=== PATIENT | female | born 1945 | race Caucasian/White ===

== ENCOUNTER 2023-05-20 15:23 | Outpatient (OUT) | payer MEDICARE, SELFPAY ==
[2023-05-20 16:16] LABS: Anion Gap 9.8; BUN Creatinine Ratio 26.8; Calcium 9.7 mg/dL (8.5-10.1); Carbon Dioxide 33.1 mmol/L (21.0-32.0); Chloride 103 mmol/L (98-107); Estimated GFR (African America >60 (>=60); Estimated GFR (Non-African Ame 56 (>=60); Glucose 138 mg/dL (74-106); Potassium 3.9 mmol/L (3.5-5.1); Sodium 142 mmol/L (136-145); Thyroid Stimulating Hormone 1.517 uIU/mL (0.358-3.740)
[2023-05-20 17:39] LABS: Free T4 0.97 ng/dL (0.76-1.46)
[2023-05-22 04:07] LABS: Triiodothyronine (T3) 106 ng/dL (71-180)
[2023-05-25 15:07] LABS: Thyroid Stim Immunoglobulin <0.10 IU/L (0.00-0.55)
== END 2023-05-20 15:24 | disposition home or self-care (01) ==
LOC: LAB 15:29
PROVIDERS: PCP Internal Medicine; Visit Provider Internal Medicine
DX: I48.19 Other persistent atrial fibrillation (principal); E05.90 Thyrotoxicosis, unspecified without thyrotoxic crisis or storm; N18.32 Chronic kidney disease, stage 3b
CPT/HCPCS: 36415; 80048; 84439; 84443; 84445; 84480

== ENCOUNTER 2023-07-09 13:47 | Outpatient (OUT) | payer MEDICARE, SELFPAY ==
--- NOTE | 2023-07-09 14:22 | CA_ITS ---
Patient: FATUMA MENA Exam Date: 07/09/2023 : 1945 Gender:F Ordering : KARLEE MILLER Admission #: [id number] Family : Order #: [id number] CLICK HERE TO VIEW EXAM ECHOCARDIOGRAM REPORT PROCEDURE: CA ECHO DOPPLER COMPLETE INDICATIONS: Atrial fibrillation, hypertension, diabetes COMPARISON: None. DESCRIPTION: COMPLETE ECHOCARDIOGRAM Real-time transthoracic echocardiography with 2D, M-mode, spectral and color flow Doppler performed. QUALITY: Technical quality was good. LEFT VENTRICLE: Normal chamber size. Proximal septal hypertrophy (sigmoid septum). LV EF: Normal left ventricular ejection fraction, (>55%). DIASTOLIC: Not adequately assessed due to heart rhythm. ATRIAL SEPTUM: Visually appears intact. LEFT ATRIUM: Mild dilatation. RIGHT ATRIUM: Mild dilatation. RIGHT VENTRICLE: Normal chamber size. Normal right ventricular systolic function. TRICUSPID VALVE: Normal mobility and thickness. No stenosis with mild regurgitation. No evidence of pulmonary hypertension. RVSP 31 mmHg MITRAL VALVE: Mildly thickened with normal mobility. No evidence of mitral valve stenosis. Mild mitral annular calcification. Mild to moderate mitral regurgitation. AORTIC VALVE: Normal trileaflet appearance. Thickened aortic valve. Normal leaflet mobility. No evidence of aortic valve stenosis. Trivial aortic regurgitation. AORTIC ROOT: Normal diameter and appearance. PULMONIC VALVE: Normal thickness and mobility. No stenosis. Mild regurgitation. PERICARDIUM: Anterior free space; trivial effusion versus fat pad. IVC: Collapses with inspirations. CONCLUSION: 1. Global left ventricular systolic function is normal; visually estimated ejection fraction is 55 to 60%. 2. Moderate biatrial enlargement. 3. The right ventricle is normal in size and systolic function. 4. Mild tricuspid regurgitation. 5. Mild to moderate mitral regurgitation. 6. Mild pulmonic regurgitation. 7. Anterior free space; trivial effusion versus fat pad. Adult Echocardiography Procedure Report Left Ventricle LVEDD (3.7 - 5.6 cm): 4.67 cm LVESD (2.2 - 4.0 cm): 3.56 cm LVIVS thickness (0.6 - 1.2 cm): 1.74 cm LVPW thickness (0.5 - 1.0 cm): 0.78 cm LVOT Max Gradient: 3.08 mm[Hg], 2.58 mm[Hg] LVOT Area (cm2): 0.84 m/s Peak Velocity (LVOT): 0.88 m/s, 0.80 m/s LVOT Diameter 2.07 cm Left Atrium LA Volume Index (2D A2C): 38.54 ml/m2 Left Atrium Systolic Dimension: 4.90 cm Mitral Valve Mitral Valve E-Wave Peak Velocity: 1.17 m/s Right Ventricle Aorta AO Root Diam: 3.59 cm Ascending Ao Diam: 2.77 cm Aortic Valve AoV Area (Peak César): 3.17 cm2, 2.85 cm2, 3.61 cm2 Peak Velocity(Antegrade Flow): 1.04 m/s, 0.75 m/s Peak Gradient(Antegrade Flow): 4.29 mm[Hg], 2.26 mm[Hg] Tricuspid Valve Peak Velocity (Regurgitant Flow): 2.56 m/s, 2.66 m/s, 2.66 m/s Pulmonic Valve Peak Velocity: 0.73 m/s Peak Gradient: 2.41 mm[Hg] Right Atrium Right Atrium Systolic Pressure: 48.54 ml, 48.54 ml Dictated by: Mirian Beyer M.D. on 07/09/2023 at 15:22 Approved by: Mirian Beyer M.D. on 07/09/2023 at 15:25
== END 2023-07-09 13:48 | disposition home or self-care (01) ==
LOC: CARD 13:47
PROVIDERS: PCP Internal Medicine; Visit Provider Nurse Practitioner
DX: I48.19 Other persistent atrial fibrillation (principal); I08.1 Rheumatic disorders of both mitral and tricuspid valves
CPT/HCPCS: 93306

== ENCOUNTER 2023-09-22 14:56 | Outpatient (REF) | payer MEDICARE, SELFPAY ==
[2023-09-22 15:20] LABS: SARS-CoV-2 Ag POSITIVE (NEGATIVE)
== END 2023-09-22 14:57 | disposition home or self-care (01) ==
LOC: LAB 14:56
PROVIDERS: PCP Internal Medicine; Visit Provider Internal Medicine
DX: Z20.822 Contact with and (suspected) exposure to COVID-19 (principal)
CPT/HCPCS: 87811

== ENCOUNTER 2023-10-05 12:58 | Emergency (ER) | payer MEDICARE, SELFPAY ==
[2023-10-05 13:12] VITALS: BP 125/69; PULSE 98; RESP 18; TEMP 36.8; O2SAT 98; BMI 25.7
--- NOTE | 2023-10-05 13:22 | PC.NURSE ---
large bunion to L foot
--- NOTE | 2023-10-05 13:28 | XR_ITS ---
The [address] [address] Patient Name: FATUMA MENA MRN: [id number] date: 1945 Sex: F Assigned Patient Location: ED.MAIN Current Patient Location: ER Accession/Order Number: [id number] Exam Date: 10/05/2023 13:32 Report Date: 10/05/2023 14:29 At the request of: WENDY ZAPIEN Procedure: XR foot LT min 3V PROCEDURE: XR foot LT min 3V HISTORY: atraumatic pain COMPARISON: None. FINDINGS: BONES:Lateral deviation of the toes and moderate bunion formation. Moderate degenerative changes of the tarsal-metatarsal joints of the second through 5th digits. SOFT TISSUES:Calcium deposition within the Achilles tendon and within the plantar aponeurosis. EFFUSION:None visible. OTHER: Negative. XR/XR foot LT min 3V IMPRESSION: 1. No appreciable acute abnormality. 2. Moderate bunion formation. 3. Moderate degenerative changes of the midfoot. Electronically authenticated by: CHING MAHMOOD Date: 10/05/2023 14:29
[2023-10-05 15:14] VITALS: BP 125/77; PULSE 99; O2SAT 99
--- NOTE | 2023-10-05 15:21 | ED_ITS ---
HPI - Extremity Problem General Chief complaint: Extremity Problem, Nontraumatic Stated complaint: LOWER EXTREMITY INJURY LEFT FOOT Time Seen by Provider: 10/05/23 13:03 Source: patient and family Mode of arrival: Wheelchair Limitations: physical limitation History of Present Illness HPI Narrative: 78-year-old female presents for pain to the arch of her left foot. She had two right hip surgeries within the last few months and has been putting more weight on her left foot. There was no direct injury. It does not hurt at all and neither does her left ankle or left calf for left knee or left hip. the pain is moderate and worse when she steps on it. Related Data Home Medications Medication Instructions Recorded Confirmed amiodarone 200 mg tablet 200 mg PO Q24H 10/05/23 10/05/23 apixaban 5 mg tablet (Eliquis) 5 mg PO Q12H 10/05/23 10/05/23 atorvastatin 40 mg tablet 40 mg PO DAILY 10/05/23 10/05/23 diltiazem HCl 240 mg 240 mg PO Q24H 10/05/23 10/05/23 capsule,extended release 24 hr glimepiride 2 mg tablet 2 mg PO DAILY 10/05/23 10/05/23 lisinopril 20 mg tablet 20 mg PO DAILY 10/05/23 10/05/23 Allergies Allergy/AdvReac Type Severity Reaction Status Date / Time No Known Drug Allergies Allergy Verified 10/05/23 13:14 Review of Systems ROS Narrative A ten point review of systems is negative except as noted above. PFSH PFSH Social History Smoking status: Never smoker Exam Narrative Exam Narrative: Nurses note and vital signs reviewed and patient is not hypoxic. General: The patient appears well and in no apparent distress. Patient is resting comfortably on cart. Skin: Warm, dry, no pallor noted. There is no rash noted. Head: Normocephalic, atraumatic Eye: Normal conjunctiva, no drainage Ears, Nose, Mouth, and Throat: oral mucosa is moist. Nares patent. Cardiovascular: not tachycardic, irregularly irregular Respiratory: Patient is in no distress, no accessory muscle use, lungs are clear to auscultation, no wheezing, rales or rhonchi Back: non-tender GI: soft and nontender Musculoskeletal: the right leg surgical wounds are healing quite well. No calf tenderness on the right and no tenderness in the ankle or foot on the right. The left hip is nontender as is the left knee. No left calf tenderness or swelling or masses. Left ankle is nontender. She has tenderness on palpation arch for left foot but there is no bruising or erythema or rash or open area. Neurological: A&O, normal speech Psychiatric: Cooperative Constitutional Vital Signs, click to edit/add: Last Vital Signs Temp 98.3 F 10/05/23 13:12 Pulse 99 H 10/05/23 15:14 Resp 18 10/05/23 13:12 BP 125/77 10/05/23 15:14 Pulse Ox 99 10/05/23 15:14 O2 Del Method Room Air 10/05/23 13:12 Course Vital Signs Vital signs: Vital Signs Temperature 98.3 F 10/05/23 13:12 Pulse Rate 98 H 10/05/23 13:12 Respiratory Rate 18 10/05/23 13:12 Blood Pressure 125/69 10/05/23 13:12 Pulse Oximetry 98 10/05/23 13:12 Oxygen Delivery Method Room Air 10/05/23 13:12 Temperature 98.3 F 10/05/23 13:12 Pulse Rate 99 H 10/05/23 15:14 Respiratory Rate 18 10/05/23 13:12 Blood Pressure 125/77 10/05/23 15:14 Pulse Oximetry 99 10/05/23 15:14 Oxygen Delivery Method Room Air 10/05/23 13:12 MDM - Extremity (Nontraumatic) MDM Narrative Medical decision making narrative: x-ray shows degenerative changes. She is not hypotensive here nor tachycardic. I've spoken to the patient's PCP as well as the patient and her son and she'll be discharged. Mat wrap applied, application checked by me and found be appropriate, she is neurovascularly intact. She was given a [place] here and she is on that pain medicine at the [facility] as well. Treatment diagnosis and follow-up were discussed thoroughly. Differential Diagnosis Differential diagnosis: Likely other (foot fracture, foot sprain) Imaging Data left foot x-ray: Radiologist's impression: Procedure: XR foot LT min 3V PROCEDURE: XR foot LT min 3V HISTORY: atraumatic pain COMPARISON: None. FINDINGS: BONES:Lateral deviation of the toes and moderate bunion formation. Moderate degenerative changes of the tarsal-metatarsal joints of the second through 5th digits. SOFT TISSUES:Calcium deposition within the Achilles tendon and within the plantar aponeurosis. EFFUSION:None visible. OTHER: Negative. IMPRESSION: 1. No appreciable acute abnormality. 2. Moderate bunion formation. 3. Moderate degenerative changes of the midfoot. Electronically authenticated by: CHING MAHMOOD Date: 10/05/2023 14:29 Discharge Plan Discharge Chief Complaint: Extremity Problem, Nontraumatic Clinical Impression: Strain of foot, left Patient Disposition: Home, Self-Care Time of Disposition Decision: 15:20 Condition: Good Mode of Transportation: Private Vehicle Prescriptions / Home Meds: No Action amiodarone 200 mg tablet 200 mg PO Q24H Eliquis 5 mg tablet 5 mg PO Q12H atorvastatin 40 mg tablet 40 mg PO DAILY diltiazem HCl 240 mg capsule,extended release 24hr 240 mg PO Q24H glimepiride 2 mg tablet 2 mg PO DAILY lisinopril 20 mg tablet 20 mg PO DAILY Instructions: Foot Sprain (ED) Stand Alone Forms: Portal Instructions Referrals: Harsha Arrieta DO [Primary Care Provider] - 1 week
[2023-10-05] MEDS: HYDROCODONE/ACET 5-325 MG TABLET 1 TAB PO (15:30)
== END 2023-10-05 15:45 | disposition home or self-care (01) ==
PROVIDERS: Emergency Provider Emergency Medicine; PCP Internal Medicine
DX: S96.912A Strain of unspecified muscle and tendon at ankle and foot level, left foot, initial encounter (principal); Z98.890 Other specified postprocedural states; Z79.899 Other long term (current) drug therapy
CPT/HCPCS: 73630; 99283

== ENCOUNTER 2024-02-25 10:13 | Outpatient (OUT) | payer MEDICARE, SELFPAY ==
--- NOTE | 2024-02-25 10:33 | MM_ITS ---
Patient Name: FATUMA MENA MR#: [id number] : 1945 Exam Date: 02/25/2024 Ordering Doctor: DR Harsha Arrieta D.O. RADIOLOGY REPORT PROCEDURE: MM SCREENING MAMMO BI COMPARISON: MG MAMM SCREEN 3D LILLIAN CAD, 01/08/2023. MG MAMM SCREEN 3D LILLIAN CAD, 01/07/2022. INDICATIONS: screening Calculator Name NCI Breast Cancer Risk Assessment Tool 5 Year Breast Cancer Risk n/a% Lifetime Breast Cancer Risk n/a% Personal Breast Cancer Yes, 56 Personal Ovarian Cancer No Treatments Left -Lumpectomy, Radiation therapy, Tamoxifen x 5 years Family Cancers Aunt-paternal with breast cancer at age ~60. LOCATION: [facility] BREAST COMPOSITION: Heterogeneously dense,which may obscure small masses. FINDINGS: DIAGNOSTIC CATEGORY 2--BENIGN FINDING: RIGHT BREAST: No significant suspicious finding. Scattered benign-appearing calcifications are present. No significant change has occurred. LEFT BREAST: No significant suspicious finding. Scattered benign-appearing calcifications are present. Stable postsurgical scarring posterior upper-outer quadrant. No significant change has occurred. RECOMMENDATIONS: ROUTINE MAMMOGRAM AND CLINICAL EVALUATION IN 12 MONTHS. PLEASE NOTE: A NORMAL MAMMOGRAM DOES NOT EXCLUDE THE POSSIBILITY OF BREAST CANCER. A CLINICALLY SUSPICIOUS PALPABLE LUMP SHOULD BE BIOPSIED. Dictated by: Donis Dangelo M.D. on 02/25/2024 at 13:51 Approved by: Donis Dangelo M.D. on 02/25/2024 at 13:57
[2024-02-25 10:47] LABS: Basophils Absolute Auto 0.1 10^3/uL (0.0-0.1); Basophils Percent Auto 0.9 % (0.2-2.0); Eosinophils Absolute Auto 0.3 10^3/uL (0.0-0.7); Eosinophils Percent Auto 5.1 % (0.9-7.0); Hemoglobin 12.9 g/dL (12.0-16.0); Immature Granulocytes Abs Auto 0.01 10^3/uL (0.00-0.03); Immature Granulocytes Pct Auto 0.2 % (0.0-0.5); Lymphocytes Absolute Auto 1.1 10^3/uL (1.2-3.8); Mean Corpuscular HGB Conc 32.3 g/dL (29.9-35.2); Mean Corpuscular Hemoglobin 32.1 pg (26.7-34.0); Mean Corpuscular Volume 99.5 fL (81.0-99.0); Mean Platelet Volume 10.3 fL (9.5-13.5); Monocytes Absolute Auto 0.5 10^3/uL (0.3-0.8); Monocytes Percent Auto 8.6 % (1.7-12.0); Neutrophils Absolute Auto 3.8 10^3/uL (1.4-6.5); Neutrophils Percent Auto 66.2 % (43.0-75.0); Platelet Count 232 10^3/uL (150-450); Red Blood Count 4.02 10^6/uL (4.20-5.40); Red Cell Distribution Width 14.8 % (11.0-15.0); White Blood Count 5.7 10^3/uL (4.0-11.0)
[2024-02-25 12:03] LABS: Free T4 0.55 ng/dL (0.76-1.46)
[2024-02-25 12:05] LABS: Microalbumin Urine Random <1.3 mg/dL (<=30.0)
[2024-02-25 12:10] LABS: Estimated Average Glucose 137 mg/dL; Glycohemoglobin A1C 6.4 % (4.5-6.2)
[2024-02-25 13:24] LABS: Anion Gap 15.4; Carbon Dioxide 26.5 mmol/L (21.0-32.0); Chloride 103 mmol/L (98-107); Potassium 3.9 mmol/L (3.5-5.1); Sodium 141 mmol/L (136-145)
[2024-02-25 13:25] LABS: Alanine Aminotransferase 45 U/L (14-59); Albumin Globulin Ratio 1.1; Albumin Level 3.9 g/dL (3.4-5.0); Alkaline Phosphatase 80 U/L (46-116); Aspartate Amino Transferase 34 U/L (15-37); Bilirubin Total 0.6 mg/dL (0.2-1.0); Calcium 9.7 mg/dL (8.5-10.1); Estimated GFR (African America >60 (>=60); Estimated GFR (Non-African Ame 53 (>=60); Globulin 3.7 g/dL; Glucose 136 mg/dL (74-106); Total Protein 7.6 g/dL (6.4-8.2)
[2024-02-25 13:26] LABS: Chol HDL Ratio 2.5; Cholesterol 157 mg/dL (<=200); HDL Cholesterol 62 mg/dL (40-60); Thyroid Stimulating Hormone 13.739 uIU/mL (0.358-3.740); Triglycerides 98 mg/dL (<=150); VLDL CHOLESTEROL 19.6 mg/dL
[2024-02-26 08:11] LABS: Triiodothyronine (T3) 117 ng/dL (71-180)
== END 2024-02-25 10:14 | disposition home or self-care (01) ==
LOC: MAMMO 10:13
PROVIDERS: PCP Internal Medicine; Visit Provider Internal Medicine
DX: Z12.31 Encounter for screening mammogram for malignant neoplasm of breast (principal); E11.65 Type 2 diabetes mellitus with hyperglycemia; E11.42 Type 2 diabetes mellitus with diabetic polyneuropathy; N18.32 Chronic kidney disease, stage 3b; I48.0 Paroxysmal atrial fibrillation; E78.2 Mixed hyperlipidemia; Z79.899 Other long term (current) drug therapy; Z85.3 Personal history of malignant neoplasm of breast; Z80.3 Family history of malignant neoplasm of breast; I12.9 Hypertensive chronic kidney disease with stage 1 through stage 4 chronic kidney disease, or unspecified chronic kidney disease
CPT/HCPCS: 36415; 77067; 80053; 80061; 82043; 83036; 84439; 84443; 84480; 85025

== ENCOUNTER 2024-03-22 09:20 | Outpatient (RCR) | payer MEDICARE, SELFPAY | END 2024-04-21 11:34 | disposition home or self-care (01) | LOC: MM 09:20 | PROVIDERS: PCP Internal Medicine; Visit Provider Internal Medicine | DX: Z51.81 Encounter for therapeutic drug level monitoring (principal); Z79.01 Long term (current) use of anticoagulants; I48.0 Paroxysmal atrial fibrillation ==

== ENCOUNTER 2024-04-24 03:28 | Outpatient (RCR) | payer MEDICARE, SELFPAY | END 2024-05-19 11:03 | disposition home or self-care (01) | LOC: MM 03:28 | PROVIDERS: PCP Internal Medicine; Visit Provider Internal Medicine | DX: Z51.81 Encounter for therapeutic drug level monitoring (principal); Z79.01 Long term (current) use of anticoagulants; I48.0 Paroxysmal atrial fibrillation ==

== ENCOUNTER 2024-05-22 00:31 | Outpatient (RCR) | payer MEDICARE, SELFPAY | END 2024-06-21 10:11 | disposition home or self-care (01) | LOC: MM 00:31 | PROVIDERS: PCP Internal Medicine; Visit Provider Internal Medicine | DX: Z51.81 Encounter for therapeutic drug level monitoring (principal); Z79.01 Long term (current) use of anticoagulants; I48.0 Paroxysmal atrial fibrillation ==

== ENCOUNTER 2024-06-22 00:24 | Outpatient (RCR) | payer MEDICARE, SELFPAY | END 2024-07-21 10:01 | disposition home or self-care (01) | LOC: MM 00:24 | PROVIDERS: PCP Internal Medicine; Visit Provider Internal Medicine | DX: Z51.81 Encounter for therapeutic drug level monitoring (principal); Z79.01 Long term (current) use of anticoagulants; I48.0 Paroxysmal atrial fibrillation | CPT/HCPCS: 85610; G0463 ==

== ENCOUNTER 2024-07-24 01:42 | Outpatient (RCR) | payer MEDICARE, SELFPAY | END 2024-08-21 23:41 | disposition home or self-care (01) | LOC: MM 01:42 | PROVIDERS: PCP Internal Medicine; Visit Provider Internal Medicine | DX: Z51.81 Encounter for therapeutic drug level monitoring (principal); Z79.01 Long term (current) use of anticoagulants; I48.0 Paroxysmal atrial fibrillation | CPT/HCPCS: 85610; G0463 ==

== ENCOUNTER 2024-07-27 14:04 | Outpatient (OUT) | payer MEDICARE, SELFPAY ==
[2024-07-27 15:27] LABS: Estimated Average Glucose 171 mg/dL; Glycohemoglobin A1C 7.6 % (4.5-6.2)
[2024-07-27 15:37] LABS: Thyroid Stimulating Hormone 2.479 uIU/mL (0.358-3.740)
== END 2024-07-27 14:05 | disposition home or self-care (01) ==
PROVIDERS: PCP Internal Medicine; Visit Provider Internal Medicine
DX: E11.65 Type 2 diabetes mellitus with hyperglycemia (principal); E03.9 Hypothyroidism, unspecified; Z51.81 Encounter for therapeutic drug level monitoring; Z79.01 Long term (current) use of anticoagulants; I48.0 Paroxysmal atrial fibrillation
CPT/HCPCS: 36415; 83036; 84443; 85610; G0463

== ENCOUNTER 2024-08-22 02:33 | Outpatient (RCR) | payer MEDICARE, SELFPAY | END 2024-09-21 23:13 | disposition home or self-care (01) | LOC: MM 02:33 | PROVIDERS: PCP Internal Medicine; Visit Provider Internal Medicine | DX: Z51.81 Encounter for therapeutic drug level monitoring (principal); Z79.01 Long term (current) use of anticoagulants; I48.0 Paroxysmal atrial fibrillation | CPT/HCPCS: 85610; G0463 ==

== ENCOUNTER 2024-09-22 13:15 | Outpatient (RCR) | payer MEDICARE, SELFPAY | END 2024-10-21 23:59 | disposition home or self-care (01) | LOC: MM 13:15 | PROVIDERS: PCP Internal Medicine; Visit Provider Internal Medicine | DX: Z51.81 Encounter for therapeutic drug level monitoring (principal); Z79.01 Long term (current) use of anticoagulants; I48.0 Paroxysmal atrial fibrillation | CPT/HCPCS: 85610; G0463 ==

== ENCOUNTER 2024-10-23 05:57 | Outpatient (RCR) | payer MEDICARE, SELFPAY | END 2024-11-21 09:13 | disposition home or self-care (01) | LOC: MM 05:57 | PROVIDERS: PCP Internal Medicine; Visit Provider Internal Medicine | DX: Z51.81 Encounter for therapeutic drug level monitoring (principal); Z79.01 Long term (current) use of anticoagulants; I48.0 Paroxysmal atrial fibrillation ==

== ENCOUNTER 2024-11-23 01:48 | Outpatient (RCR) | payer MEDICARE, SELFPAY | END 2024-12-22 14:32 | disposition home or self-care (01) | LOC: MM 01:48 | PROVIDERS: PCP Internal Medicine; Visit Provider Internal Medicine | DX: Z51.81 Encounter for therapeutic drug level monitoring (principal); Z79.01 Long term (current) use of anticoagulants; I48.0 Paroxysmal atrial fibrillation | CPT/HCPCS: 85610; G0463 ==

== ENCOUNTER 2024-12-25 00:38 | Outpatient (RCR) | payer MEDICARE, SELFPAY | END 2025-01-19 10:22 | disposition home or self-care (01) | LOC: MM 00:38 | PROVIDERS: PCP Internal Medicine; Visit Provider Internal Medicine | DX: Z51.81 Encounter for therapeutic drug level monitoring (principal); Z79.01 Long term (current) use of anticoagulants; I48.0 Paroxysmal atrial fibrillation | CPT/HCPCS: 85610; G0463 ==

== ENCOUNTER 2025-01-20 12:44 | Outpatient (RCR) | payer MEDICARE, SELFPAY | END 2025-02-16 13:49 | disposition home or self-care (01) | LOC: MM 12:44 | PROVIDERS: PCP Internal Medicine; Visit Provider Internal Medicine | DX: Z51.81 Encounter for therapeutic drug level monitoring (principal); Z79.01 Long term (current) use of anticoagulants; I48.20 Chronic atrial fibrillation, unspecified ==

== ENCOUNTER 2025-01-28 15:19 | Emergency (ER) | payer MEDICARE, SELFPAY ==
--- OUTSIDE RECORDS SUMMARY | 2025-01-28 15:25 | XMS_ITS | CCD ---
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 Role Phone Harsha Arrieta Unavailable KAMRAN, DR VALDEZ Consulting Unavailable BALL, DR VALDEZ Primary Care Unavailable BALL, DR VALDEZ Attending Unavailable BALL, DR VALDEZ Admitting Unavailable ZIEBER, DR CHING Hill Consulting Unavailable NEFCY, SAMARA Consulting Unavailable RAMIREZ, KEERTHI Consulting Unavailable BALL, DR VALDEZ Consulting Unavailable BALL, DR VALDEZ Primary Care Unavailable BALL, DR VALDEZ Attending Unavailable BALL, DR VALDEZ Admitting Unavailable ZIEBER, DR CHING Hill Consulting Unavailable BALL, DR VALDEZ Consulting Unavailable BALL, DR VALDEZ Primary Care Unavailable BALL, DR VALDEZ Attending Unavailable BALL, DR VALDEZ Admitting Unavailable BALL, DR VALDEZ Consulting Unavailable BALL, DR VALDEZ Primary Care Unavailable BALL, DR VALDEZ Attending Unavailable BALL, DR VALDEZ Admitting Unavailable BALL, DR VALDEZ Consulting Unavailable BALL, DR VALDEZ Primary Care Unavailable BALL, DR VALDEZ Attending Unavailable BALL, DR VALDEZ Admitting Unavailable BALL, DR VALDEZ Consulting Unavailable BALL, DR VALDEZ Primary Care Unavailable BALL, DR VALDEZ Attending Unavailable BALL, DR VALDEZ Admitting Unavailable KARASIK ., DR BARAHONA Consulting Unavailabl e REQUEST, DR MONCADA LISTED Primary Care Unavaila ble KARASIK ., DR BARAHONA Attending Unavailabl e KARASIK ., DR BARAHONA Admitting Unavailabl e KARASIK ., DR BARAHONA Consulting Unavailabl e BALL, DR VALDEZ Primary Care Unavailable KARASIK ., DR BARAHONA Attending Unavailabl e KARASIK ., DR BARAHONA Admitting Unavailabl e KARASIK ., DR BARAHONA Consulting Unavailabl e BALL, DR VALDEZ Primary Care Unavailable KARASIK ., DR BARAHONA Attending Unavailabl e KARASIK ., DR BARAHONA Admitting Unavailabl e BALL, DR VALDEZ Consulting Unavailable BALL, DR VALDEZ Primary Care Unavailable BALL, DR VALDEZ Attending Unavailable BALL, DR VALDEZ Admitting Unavailable BALL, DR VALDEZ Consulting Unavailable BALL, DR VALDEZ Primary Care Unavailable BALL, DR VALDEZ Attending Unavailable BALL, DR VALDEZ Admitting Unavailable BALL, DR VALDEZ Consulting Unavailable BALL, DR VALDEZ Primary Care Unavailable BALL, DR VALDEZ Attending Unavailable BALL, DR VALDEZ Admitting Unavailable BROWN, JENELLE Consulting Unavailable BALL, DR VALDEZ Consulting Unavailable BALL, DR VALDEZ Primary Care Unavailable BALL, DR VALDEZ Attending Unavailable BALL, DR VALDEZ Admitting Unavailable BALL, DR VALDEZ Consulting Unavailable BALL, DR VALDEZ Primary Care Unavailable KARASIJohana ., DR BARAHONA Attending Unavailabl e KARASIJohana ., DR BARAHONA Admitting Unavailabl e ZIEBEMORY, DR CHING Hill Consulting Unavailable Seamus SANDHU, Isidro Dahl Attending Unavaila ble Ball DO, [facility] Primary Care Unavail able Seamus SANDHU, Isidro Dahl Attending Unavaila ble Denike DO, Frank Del Rosario Attending Unavaila ble Ball DO, [facility] Primary Care Unavail able Seamus SANDHU, Isidro Dahl Attending Unavaila ble Ball DO, [facility] Unavail able Seamus SANDHU, Isidro Dahl Attending Unavaila ble Ball DO, [facility] Primary [facility] Unavail able DAKOTA MAK Admitting Unavailable RAY, CESAR Referring Unavailable BALL, HARSHA Primary Care Unavailable FATMATA (LATOSHA), JUSTIN Berry Attending Santos UNGER, TUTU Hill Attending Unavailable ALLYSSA, SANTIAGO Attending Unavailable WILL, MATT Attending Unavailable ALLYSSA, SANTIAGO Attending Unavailable ALLYSSA, SANTIAGO Admitting Unavailable ALLYSSA, SANTIAGO Attending Unavailable ALLYSSA, SANTIAGO Referring Unavailable SANTIAGO TRINIDAD Referring Unavailable KARLEE PEARSON Attending Unavailable Harsha Arrieta MD Primary Care Provider Kamran HI, Harsha Primary Care Provider RICHARD DAY Referring Unavailable KAMRAN, HARSHA Primary Care Unavailable CHING COHEN Referring Unavailable KAMRAN, HARSHA Primary Care Unavailable KAMRAN, HARSHA Primary Care Unavailable CHING COHEN Referring Unavailable KAMRAN, HARSHA Primary Care Unavailable RICHARD DAY Referring Unavailable KAMRAN, HARSHA Primary Care Unavailable Allergies Allergy Classification Reported Allergen(s) Allergy Type Date of Onset Reaction(s) Facility (20 sources) Linagliptin Drug Allergy 02-14-20 24 Unknown, Unknown Reaction [facility] (20 sources) metFORMIN Drug Allergy 11-22-19 20 Unknown, Unknown Reaction [facility] (20 sources) Sertraline; Translations: [SERTRALINE] Drug Allergy 01-16-20 13 Unknown, Unknown Reaction [facility] (20 sources) Sulfacetamide Drug Allergy 02-14-20 24 Unknown, Unknown Reaction [facility] (2 sources) Linagliptin Drug Allergy Unknown [facility] (1 source) metFORMIN Drug Allergy [facility] (1 source) Sertraline Drug Allergy 05-01-20 13 [facility] (1 source) Sulfonamides (Antibiotic) Drug allergy (disorder) [facility] (2 sources) Sertraline Drug Allergy 11-22-19 SERTRALINE HCL Comment:Freete xt Needs Updated. [facility] Other (2 sources) Allergies Reconciled Propensity to adverse reactions Unknown [facility] Other (20 sources) Sulf-10 Drug allergy Comment:sulfa drugs [facility] Other (2 sources) patient allergy list reviewed by nurse or physicia Propensity to adverse reactions 11-22-19 Comment:Done [facility] Other (7 sources) Sulfonamides (Antibiotic) Allergy to substance 02-14-20 Comment:sulfa drugs [facility] Medications Current Medications Medication Drug Class(es) Dates Sig (Normalized) Sig (Original) acetaminophen 500 mg oral tablet (9 sources) Start: 02-14-2024 take 2 tablets by mouth every eight hours as needed acetaminophen (Tylenol) 500 MG tablet Take 1,000 mg by mouth every 8 (eight) hours if needed 02/14/2024 Active Start: 02-14-2024 Acetaminophen (Acetaminophen Pain Relief) 500 mg tablet Active 1000 MG PO Three times daily as needed February 13, 2024 11:00pm ALPRAZolam 0.25 mg oral tablet (20 sources) Benzodiazepine Start: 06-19-2024 End: 12-25-2024 take 1 tablet by mouth twice daily as needed for anxiety Alprazolam 0.25 mg tablet Active 0.25 MG PO Twice daily as needed for anxiety 60 December 25, 2024 12:21pm Start: 02-14-2024 End: 06-19-2024 take 0.5 tablet by mouth twice daily in the morning, then take 1 tablet by mouth once daily at bedtime Alprazolam 0.25 mg tablet Discontinued 0.25 MG PO Twice daily February 14, 2024 12:58pm June 19, 2024 12:16pm 1/2 tablet in am and 1 tablet qhs Start: 09-30-2023 End: 02-14-2024 take 1 tablet by mouth twice daily Alprazolam 0.25 mg tablet Discontinued 0.25 MG PO Twice daily February 02, 2024 11:00pm February 14, 2024 1:03pm Start: 04-05-2023 take 1 tablet by roman th every eight hours ALPRAZolam 0.25 MG 1 tablet Orally THREE TIMES A DAY March, Active take 1 tablet by roman th every eight hours ALPRAZolam 0.25 MG 1 tablet Orally THREE TIMES A DAY Active amiodarone hydrochloride 200 mg oral tablet (20 sources) Antiarrhythmic Start: 02-02-2024 take 1 tablet by mouth once daily Amiodarone 200 mg tablet Active 200 MG PO Daily February 01, 2024 11:00pm aspirin 81 mg delayed release oral tablet (3 sources) Platelet Aggregation Inhibitor, Nonsteroidal Anti-inflammatory Drug take 1 tablet by mouth every twenty-four hours Aspirin 81 MG 1 tablet Orally Once a day Active atorvastatin 40 mg oral tablet (20 sources) HMG-CoA Reductase Inhibitor Start: 02-07-2024 take 1 tablet by mouth once daily in the evening Atorvastatin 40 mg tablet Active 0 .ROUTE .COMPLEX 90 February 07, 2024 12:28pm TAKE 1 TABLET BY MOUTH ONCE DAILY IN THE EVENING Start: 02-03-2024 End: 02-07-2024 take 1 tablet by mouth once daily in the evening Atorvastatin 40 mg tablet Discontinued 40 MG PO Every evening February 02, 2024 11:00pm February 07, 2024 12:28pm Calcium Carb-Cholecalciferol (CALTRATE 600+D3 PO) (2 sources) take 1 tablet by mouth at bedtime Calcium Carb-Cholecalciferol (CALTRATE 600+D3 PO) Take 1 tablet by mouth in the morning and at bedtime Active Calcium Carbonate+Vitamin D (4 sources) Calcium Carbonat e+Vitamin D Active Caltrate 600+D Plus Minerals 600-800 MG-UNIT (20 sources) take 600-800 tablets by mouth twice daily Caltrate 600+D Plus Minerals 600-800 MG-UNIT 1 tablet Orally Twice a day Active carvedilol 25 mg oral tablet (19 sources) alpha-Adrener gic Jhon, beta-Adrenerg ic Jhon Start: 2022 take 1 tablet by mouth every twelve hours Carvedilol 25 MG 1 tablet with food Orally Twice a day Jan, Active take 1 tablet by roman th every twelve hours Carvedilol 12.5 MG 1 tablet with food Orally Twice a day Active celecoxib 100 mg oral capsule (1 source) Nonsteroidal Anti-inflammatory Drug Start: 01-26-2023 take 1 capsule by mouth twice daily at mealtime Celecoxib 100 MG 1 capsule with food Orally Twice daily for 15 days Jan, Active cephalexin 500 mg oral capsule (14 sources) Cephalosporin Antibacterial Start: 06-25-2023 take 1 capsule by mouth every eight hours ciprofloxacin 250 mg oral tablet (15 sources) Quinolone Antimicrobial Start: 06-21-2023 take 1 tablet by mouth every twelve hours Ciprofloxacin HCl 250 MG 1 tablet Orally every 12 hrs for 5 days May, Active 12 hr dextromethorphan hydrobromide 30 mg / guaiFENesin 600 mg extended release oral tablet (2 sources) Uncompetitive Y-siyvto-Q-aspartate Receptor Antagonist, Sigma-1 Agonist take 1 tablet by mouth every twelve hours dextromethorphan- guaiFENesin (Mucinex DM) 30-600 MG 12 hr tablet Take 1 tablet by mouth every 12 (twelve) hours Do not crush, chew, or split. Active 24 hr dilTIAZem hydrochloride 240 mg extended release oral tablet (20 sources) Calcium Channel Jhon Start: 02-03-2024 take 1 tablet by mouth once daily Diltiazem Hcl 240 mg tablet extended release 24 hr Active 240 MG PO Daily February 02, 2024 11:00pm Start: 07-16-2023 take 1 capsule by mo uth every twenty-four hours take 1 capsule by mouth once brando ly dilTIAZem (CARDIZEM CD) 240 MG extended release capsule Take 1 capsule by mouth daily Active take 1 capsule by mouth twice da mady diltiazem (CARDIZEM SR) 120 MG SR capsule Take 1 capsule by mouth 2 times daily Active take 1 tablet by roman th every twenty-four hours dilTIAZem HCl ER 240 MG 1 tablet Orally Once a day Active take 1 tablet by mouth once gwendolyn y dilTIAZem HCl ER 240 MG 1 tablet Orally Once a day Active docusate sodium 100 mg oral capsule (13 sources) Start: 02-14-2024 take 1 capsule by mouth once daily as needed Docusate Sodium (Colace) 100 mg capsule Active 100 MG PO Daily as needed February 13, 2024 11:00pm 0.5 ml dulaglutide 3 mg/ml auto-injector (20 sources) GLP-1 Receptor Agonist Start: 12-06-2024 End: 12-06-2024 Dulaglutide (Trulicity) 1.5 mg/0.5 mL pen injector Active 1.5 MG SUBCUT every week 2 December 06, 2024 12:07pm Start: 10-01-2024 End: 12-06-2024 Dulaglutide (Trulicity) 1.5 mg/0.5 mL pen injector Discontinued 0 .ROUTE .COMPLEX October 01, 2024 8:37pm December 06, 2024 11:38am INJECT 1 SYRINGE SUBCUTANEOUSLY ONCE A WEEK Start: 04-13-2024 End: 10-01-2024 Dulaglutide 1.5 mg/0.5 mL pe n injector Discontinued 1.5 MG SUBCUT every week 2 April 13, 2024 10:18am October 01, 2024 8:39pm Start: 01-31-2024 End: 04-13-2024 Dulaglutide (Trulicity) 0.75 mg/0.5 mL pen injector Discontinued 0.75 MG SUBCUT As Directed January 31, 2024 11:29am April 13, 2024 10:22am Start: 11-12-2023 Trulicity 0.75 MG/0.5ML as directed Subcutaneous Oct, Active inject 0.5 mL by sub cutaneous injection every week Trulicity 0.75 MG/0.5ML INJECT 0.5ML SYRINGE SUBCUTANEOUSLY ONCE A WEEK Not-Taking Flash Glucose Sensor (Freestyle Chelsea 2 Sensor) kit (2 sources) Start: 10-02-2024 Flash Glucose Sensor (Freestyle Chelsea 2 Sensor) kit Active 0 .ROUTE .COMPLEX 2 October 02, 2024 5:50pm USE TO CHECK BLOOD SUGAR TRANCUTANEOUS FOUR TIMES DAILY Start: 10-02-2024 End: 10-02-2024 Flash Glucose Sensor (Freest yle Chelsea 2 Sensor) kit Discontinued 0 .Route 2 October 024 12:00am October 02, 2024 5:50pm to test blood sugar 4 times daily FreeStyle Chelsea 2 Sensor - (4 sources) Start: 12-07-2023 FreeStyle Libr e 2 Sensor - Use to test home BS trancutaneous qid for 30 days Nov, Active FreeStyle Chelsea 2 Sensor - as directed trascutaneous testing 4x daily for 30 days Active hydroCHLOROthiazide 25 mg oral tablet (20 sources) Thiazide Diuretic Start: 01-31-2024 take 1 tablet by mouth once daily Hydrochlorothiazide 25 mg tablet Active 0 .ROUTE .COMPLEX January 31, 2024 11:41am Take 1 tablet by mouth once daily Start: 01-31-2024 End: 01-31-2024 take 1 tablet by mouth once daily Hydrochlorothiazide 25 mg tablet Discontinued 25 MG PO Daily January 30, 2024 11:00pm January 31, 2024 11:41am Ibadronate (2 sources) Ibandronate Sodi um (BONIVA IV) Infuse intravenously. Takes this 4 times a year Active 3 ml ibandronic acid 1 mg/ml prefilled syringe (6 sources) Bisphosphonate inject 3 mL intravenously every three months ibandronate (Boniva) 3 MG/3ML solution inject 3 milliliter by intravenous route every 3 months over Intravenous Active Boniva Active levothyroxine sodium 0.025 mg oral tablet (20 sources) l-Thyroxine Start: 01-03-2025 take 1 tablet by mouth once daily Levothyroxine 25 mcg tablet Active 25 MCG PO Daily January 03, 2025 2:48pm Start: 09-01-2024 End: 01-03-2025 take 1 tablet by mouth once daily Levothyroxine 25 mcg tablet Discontinued 0 .ROUTE .COMPLEX October 30, 2024 4:56pm January 03, 2025 2:49pm Take 1 tablet by mouth once daily Start: 03-01-2024 End: 09-01-2024 take 1 tablet by mouth once daily Levothyroxine 25 mcg tablet Discontinued 25 MCG PO Daily August 29, 2024 11:32am September 01, 2024 1:58pm Start: 02-25-2024 End: 03-01-2024 take 1 capsule by mouth once daily Levothyroxine 25 mcg capsule Discontinued 25 MCG PO Daily March 01, 2024 11:18am March 01, 2024 12:19pm lisinopril 20 mg oral tablet (20 sources) Angiotensin Converting Enzyme Inhibitor Start: 04-18-2024 take 1 tablet by mouth once daily Lisinopril 20 mg tablet Active 0 .ROUTE .COMPLEX April 18, 2024 1:27pm Take 1 tablet by mouth once daily Start: 04-18-2024 take 1 tablet by roman th once daily Lisinopril Active 0 .ROUTE .COMPLEX April 18, 2024 2:27pm Take 1 tablet by mouth once daily Start: 02-03-2024 End: 04-18-2024 take 1 tablet by mouth once daily Lisinopril 20 mg tablet Discontinued 20 MG PO Daily February 02, 2024 11:00pm April 18, 2024 1:27pm melatonin 5 mg oral capsule (9 sources) Start: 02-14-2024 take 1 mg by mouth once daily at bedtime as needed Melatonin 5 mg capsule Active MG PO Daily at bedtime as needed February 13, 2024 11:00pm Start: 02-14-2024 take 1 mg by mouth o nce daily at bedtime Melatonin Active MG PO Daily at bedtime February 14, 2024 12:00am take 1 tablet by mouth at bedtim e melatonin 5 MG tablet Take 5 mg by mouth at bedtime Active miconazole nitrate 20 mg/ml topical cream (9 sources) Azole Antifungal Start: 02-14-2024 Miconazole Ni trate (Antifungal (Miconazole)) 2 % cream Active 1 APPLIC TOPICAL Daily as needed February 13, 2024 11:00pm miconazole (Sander tin) 200 MG vaginal suppository Insert 200 mg into the vagina at bedtime As needed Active omeprazole 10 mg delayed release oral capsule (20 sources) Proton Pump Inhibitor Start: 02-03-2024 take 1 capsule by mouth once daily Omeprazole 10 mg capsule,delayed release(DR/EC) Active 10 MG PO Daily February 02, 2024 11:00pm take 1 tablet by mouth once gwendolyn y PriLOSEC OTC 20 MG 1 tablet 30 minutes before morning meal Orally Once a day Not-Taking 24 hr oxybutynin chloride 10 mg extended release oral tablet (20 sources) Cholinergic Muscarinic Antagonist take 1 tablet by mouth once daily oxybutynin (DITROPAN XL) 10 MG extended release tablet Take 1 tablet by mouth daily Active pravastatin sodium 40 mg oral tablet (2 sources) HMG-CoA Reductase Inhibitor take 1 tablet by mouth once daily pravastatin (PRAVACHOL) 40 MG tablet Take 40 mg by mouth daily. Active turmeric extract 500 mg oral capsule (8 sources) take 1 capsule by mouth once daily turmeric 500 MG CAPS Take 1 capsule by mouth daily Active take 400 mg by mouth once daily Turmeric (QC TUMERIC COMPLEX PO) Take 400 mg by mouth Daily Active Turmeric 400 MG as directed Orally Active warfarin sodium 2 mg oral tablet (2 sources) Vitamin K Antagonist Start: 07-18-2024 take 1 tablet by mouth once daily Warfarin 2 mg tablet Active 2 MG PO Daily July 17, 2024 11:00pm Completed/Discontinued Medications Medication Drug Class(es) Dates Sig (Normalized) Sig (Original) Accu-Chek SmartView - (20 sources) Accu-Chek SmartV iew - as directed In Vitro Not-Taking Accu-Chek SmartV iew - as directed In Vitro Active apixaban 5 mg oral tablet (20 sources) Factor Xa Inhibitor Start: 02-01-2023 End: 07-18-2024 take 1 tablet by mouth twice daily Apixaban 5 mg tablet Discontinued 5 MG PO Twice daily February 02, 2024 11:00pm July 18, 2024 12:59pm azithromycin 250 mg oral tablet (10 sources) Macrolide Antimicrobial Start: 08-30-2023 Azithromycin 250 MG as directed Orally daily for 5 days Aug, Not-Taking calcium carbonate 1500 mg / cholecalciferol 200 unt oral tablet (9 sources) Vitamin D Start: 02-03-2024 End: 02-14-2024 take 1 tablet by mouth once daily Calcium Carbonate-Vitamin D3 600 mg-5 mcg (200 unit) tablet Discontinued 1 TAB PO Daily February 02, 2024 11:00pm February 14, 2024 12:59pm Contour Test - (20 sources) Contour Test - Use to test home BS In Vitro daily for 50 days Not-Taking Contour Test - U se to test home BS In Vitro daily for 50 days Active Contour Test - a s directed In Vitro Active Ferrex 150 Forte 150-1-25 MG-MG-MCG (3 sources) take 1 capsule by mouth once daily Ferrex 150 Forte 150-1-25 MG-MG-MCG 1 capsule Orally Once a day Not-Taking folic acid 1 mg / polysaccharide iron complex 150 mg / vitamin b12 0.025 mg oral capsule (20 sources) Vitamin B12 take 1 capsule by mouth every twenty-four hours Ferrex 150 Forte 150-1-25 MG-MG-MCG 1 capsule Orally Once a day Not-Taking glimepiride 1 mg oral tablet (20 sources) Sulfonylurea Start: 02-14-2024 End: 04-13-2024 take 1 tablet by mouth once daily Glimepiride 1 mg tablet Discontinued 1 MG PO Daily February 14, 2024 1:00pm April 13, 2024 10:23am Start: 02-03-2024 End: 02-14-2024 take 2 tablets by mouth once daily Glimepiride 1 mg tablet Discontinued 2 MG PO Daily February 02, 2024 11:00pm February 14, 2024 1:03pm Start: 02-03-2024 End: 02-14-2024 take 2 mg by mouth once daily Glimepiride Discontinued 2 MG PO Daily February 03, 2024 12:00am February 14, 2024 2:03pm Start: 12-17-2022 take 1 tablet by roman th every twenty-four hours Glimepiride 2 MG 1 tablet with breakfast or the first main meal of the day Orally Once a day Nov, Active Start: 12-17-2022 take 0.5 tablet by m outh once daily Glimepiride 2 MG 1/2 tablet Orally Once a day Nov, Active take 1 tablet by roman th every twenty-four hours Glimepiride 1 MG 1 tablet with breakfast or the first main meal of the day Orally Once a day for 30 days Active take 0.5 tablet by m outh once daily Glimepiride 4 MG 1/2 Tablet Orally Once a day Active 3 ml insulin glargine 100 unt/ml pen injector (8 sources) Insulin Analog Start: 02-03-2024 End: 02-14-2024 inject 10 [IU] by subcutaneous injection once daily in the evening Insulin Glargine 100 unit/mL (3 mL) insulin pen Discontinued 10 UNIT SUBCUT Every evening February 02, 2024 11:00pm February 14, 2024 1:00pm Start: 11-12-2023 inject 10 [IU] by blum bcutaneous injection once in the morning Lantus SoloStar 100 UNIT/ML 10 units Subcutaneous q am Oct, Active Insulin Lispro (6 sources) Insulin Analog Start: 02-03-2024 End: 02-14-2024 inject 4-14 [IU] by subcutaneous injection at dinner Insulin Lispro Discontinued 1 sliding scale dose SUBCUT Use as Directed February 03, 2024 12:00am February 14, 2024 2:00pm inject 4-14 units under skin with breakfast, with lunch, and with evening meal Insulin Lispro 100 unit/mL insulin pen (1 source) Start: 02-03-2024 End: 02-14-2024 inject 4-14 [IU] by subcutaneous injection at dinner Insulin Lispro 100 unit/mL insulin pen Discontinued 1 sliding scale dose SUBCUT Use as Directed February 02, 2024 11:00pm February 14, 2024 1:00pm inject 4-14 units under skin with breakfast, with lunch, and with evening meal nitrofurantoin, macrocrystals 25 mg / nitrofurantoin, monohydrate 75 mg oral capsule (9 sources) Nitrofuran Antibacterial Start: 05-30-2024 End: 07-18-2024 take 1 capsule by mouth twice daily at mealtime Nitrofurantoin Monohyd/M-Cryst (Macrobid) 100 mg capsule Discontinued 100 MG PO Twice daily 10 5 July 09, 2024 11:00pm July 18, 2024 12:59pm must administer with a meal/food triamcinolone acetonide 40 mg/ml injectable suspension (20 sources) Corticosteroid Start: 01-26-2023 Kenalog-40 Jan, 40 mg Tumersaid - (20 sources) Tumersaid - as directed Orally Not-Taking Tumersaid - as d irected Orally Active Tylenol Arthritis Pain (20 sources) Tylenol Arthriti s Pain Not-Taking Tylenol Arthriti s Pain Active urea 400 mg/ml topical cream (2 sources) Start: 05-16-2024 End: 06-15-2024 urea (Carmol) 40 % cream Indications: Callus Apply 1 application topically in the morning and 1 application before bedtime. 85 g 2 05/16/2024 06/15/2024 {10 (nirmatrelvir 150 MG Ora l Tablet) / 10 (ritonavir 100 MG Oral Tablet) } Pack [Paxlovid 150 MG /100 MG Dose Pack] (9 sources) Start: 09-22-2023 Paxlovid (150/ 100) 10 x 150 MG & 10 x 100MG as directed Orally bid for 5 days Sep, Not-Taking Start: 09-22-2023 Paxlovid (150/ 100) 10 x 150 MG & 10 x 100MG as directed Orally bid for 5 days Sep, Active Problems Active Problems Problem Classification Problem Date Documented Da te Episodic/Chronic Acquired foot deformities (4 sources) Hallux valgus (acquired), right foot; Translations: [Hallux valgus (acquired)] 01-14-2025 Chronic Acquired foot deformities (2 sources) Tailor's bunion of left foot; Translations: [Bunionette of left foot] 01-14-2025 Episodic Acute bronchitis (3 sources) Acute bronchitis; Translations: [Acute bronchitis, unspecified] Onset: 11-27-2015 Episodic Acute posthemorrhagic anemia (3 sources) Acute posthemorrhagic anemia Episodic Anxiety disorders (20 sources) Generalized anxiety disorder; Translations: [Generalized anxiety disorder] Chronic Cancer of breast (2 sources) Malignant neoplasm of female breast; Translations: [Malignant neoplasm of breast (female), unspecified site] Chronic Cancer of breast (20 sources) Personal history of primary malignant neoplasm of breast; Translations: [Personal history of malignant neoplasm of breast] Onset: 11-22-1959 Episodic Cardiac dysrhythmias (20 sources) Persistent atrial fibrillation; Translations: [Other persistent atrial fibrillation] Onset: 09-25-2023 Resolved: 04-29-2022 Chronic Comment on above: - s/p DCCV 09/2023 w / Amiodarone therapy Cardiac dysrhythmias (20 sources) Palpitations; Translations: [Palpitations] Onset: 10-05-2022 Episodic Chronic kidney disease (20 sources) Chronic kidney disease stage 3B ; Translations: [Stage 3b chronic kidney disease] Onset: 05-16-2024 02-03-2024 Chronic Complications of surgical procedures or medical care (3 sources) Other postprocedural complications and disorders of genitourinary system Episodic Congestive heart failure; nonhypertensive (4 sources) Chronic diastolic (congestive) heart failure; Translations: [Chronic heart failure co-occurrent with normal ejection fraction] Onset: 07-04-2023 Chronic Coronary atherosclerosis and other heart disease (4 sources) Atherosclerotic heart disease of [place] coronary artery with other forms of angina pectoris; Translations: [Coronary arteriosclerosis] Onset: 09-25-2023 Chronic Diabetes mellitus with complications (20 sources) Hyperglycemia due to type 2 diabetes mellitus; Translations: [Type 2 diabetes mellitus with hyperglycemia] Onset: 02-08-2015 Chronic Diabetes mellitus without complication (2 sources) Diabetes mellitus; Translations: [Type 2 diabetes mellitus without complications] Onset: 09-25-2023 09-25-2023 Chronic Disorders of lipid metabolism (20 sources) Mixed hyperlipidemia; Translations: [Mixed hyperlipidemia] Onset: 09-04-2015 Chronic Esophageal disorders (20 sources) Gastro-esophageal reflux disease with esophagitis; Translations: [Gastroesophageal reflux disease with esophagitis without hemorrhage] Onset: 05-16-2024 02-12-2024 Chronic Esophageal disorders (2 sources) Acquired diverticulum of esophagus; Translations: [Diverticulum of esophagus, acquired] Episodic Essential hypertension (20 sources) Essential hypertension; Translations: [Essential (primary) hypertension] Onset: 02-13-2023 Chronic Fracture of neck of femur (hip) (1 source) Fracture of unspecified part of neck of right femur, subsequent encounter for closed fracture with routine healing Episodic Genitourinary symptoms and ill-defined conditions (20 sources) Urge incontinence of urine; Translations: [Urge incontinence] Onset: 08-30-2012 02-03-2024 Chronic Genitourinary symptoms and ill-defined conditions (20 sources) Dysuria; Translations: [Dysuria] Onset: 08-17-2017 Resolved: 04-29-2022 Episodic Heart valve disorders (7 sources) Nonrheumatic aortic (valve) insufficiency; Translations: [Nonrheumatic mitral (valve) insufficiency] Onset: 05-14-2022 Chronic Immunizations and screening for infectious disease (2 sources) Vaccination given; Translations: [Encounter for immunization] Episodic Infective arthritis and osteomyelitis (except that caused by tuberculosis or sexually transmitted disease) (20 sources) Inflammation of pubic symphysis; Translations: [Osteomyelitis, unspecified] Chronic Joint disorders and dislocations; trauma-related (2 sources) Derangement of knee; Translations: [Unspecified internal derangement of right knee] Onset: 11-11-2015 Chronic Malaise and fatigue (20 sources) Chronic fatigue syndrome; Translations: [Chronic fatigue, unspecified] Onset: 09-30-2022 Chronic Nutritional deficiencies (4 sources) Vitamin D deficiency; Translations: [Vitamin D deficiency, unspecified] Onset: 09-04-2015 09-27-2023 Chronic Osteoarthritis (20 sources) Osteoarthritis of knee; Translations: [Unilateral primary osteoarthritis, right knee] Onset: 10-05-2022 Chronic Osteoporosis (20 sources) Primary osteoporosis; Translations: [Age-related osteoporosis without current pathological fracture] Onset: 12-11-2022 Chronic Other acquired deformities (2 sources) Acquired unequal leg length; Translations: [Unequal limb length (acquired), unspecified site] 01-14-2025 Episodic Other acquired deformities (1 source) Leg length inequality; Translations: [Unequal limb length (acquired), unspecified site] 01-22-2025 Episodic Other acquired deformities (3 sources) Unequal limb length (acquired), unspecified site; Translations: [Unequal limb length (acquired), unspecified site] Onset: 01-22-2025 Episodic Other aftercare (20 sources) H/O: high risk medication; Translations: [Other terminal operations manager (current) drug therapy] Episodic Other aftercare (4 sources) Other terminal operations manager (current) drug therapy; Translations: [OTH SECURITY SERVICES SPECIALIST CURRENT DRUG THERAPY] Onset: 02-13-2023 Episodic Other aftercare (2 sources) Long-term current use of drug therapy; Translations: [Other care home (current) drug therapy] Episodic Other aftercare (2 sources) Long-term current use of insulin; Translations: [[facility] (current) use of insulin] Episodic Other aftercare (4 sources) Drug therapy finding; Translations: [Other terminal operations manager (current) drug therapy] 02-14-2024 Episodic Other bone disease and musculoskeletal deformities (20 sources) Other specified disorders of bone density and structure, left thigh; Translations: [Osteopenia of left hip] Episodic Other bone disease and musculoskeletal deformities (1 source) Other specified disorders of bone density and structure, right thigh Episodic Other bone disease and musculoskeletal deformities (4 sources) Osteopenia; Translations: [Other specified disorders of bone density and structure, left thigh] 02-03-2024 Episodic Other congenital anomalies (2 sources) Talipes planus; 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] 01-14-2025 Chronic Other connective tissue disease (4 sources) Hip joint prosthesis present; Translations: [Presence of right artificial hip joint] Onset: 09-14-2023 05-16-2024 Chronic Other connective tissue disease (2 sources) Pain in left foot; Translations: [Pain in left foot] 05-16-2024 Episodic Other connective tissue disease (2 sources) Pain in right foot; Translations: [Pain in right foot] 05-16-2024 Episodic Other gastrointestinal disorders (20 sources) Dysphagia; Translations: [Dysphagia, unspecified] Episodic Other hereditary and degenerative nervous system conditions (20 sources) Essential tremor; Translations: [Essential tremor] Onset: 05-16-2024 02-03-2024 Chronic Other hereditary and degenerative nervous system conditions (1 source) Essential tremor Chronic Other inflammatory condition of skin (2 sources) Rosacea; Translations: [Rosacea, unspecified] Onset: 02-28-2015 Chronic Other injuries and conditions due to external causes (2 sources) History of fall; Translations: [History of falling] Episodic Other lower respiratory disease (20 sources) Dyspnea on exertion; Translations: [Other forms of dyspnea] Episodic Other lower respiratory disease (2 sources) Dyspnea; Translations: [Other forms of dyspnea] Episodic Other nervous system disorders (1 source) Other acute postprocedural pain; Translations: [Other acute postprocedural pain] Onset: 09-25-2023 Episodic Other non-traumatic joint disorders (2 sources) Lower limb joint arthritis; Translations: [Osteoarthrosis, unspecified whether generalized or localized, lower leg] Onset: 11-12-2015 Chronic Other non-traumatic joint disorders (20 sources) Arthralgia of the lower leg; Translations: [Pain in right knee] Onset: 11-11-2015 Episodic Other non-traumatic joint disorders (1 source) Pain in right knee Episodic Other non-traumatic joint disorders (5 sources) Pain in right hip; Translations: [PAIN IN RIGHT HIP] Onset: 01-26-2023 Episodic Other nutritional; endocrine; and metabolic disorders (20 sources) Obesity; Translations: [Obesity, unspecified] Chronic Other nutritional; endocrine; and metabolic disorders (4 sources) Obese class I; Translations: [Body mass index 33.0-33.9, adult] Onset: 05-08-2016 Chronic Other nutritional; endocrine; and metabolic disorders (6 sources) Body mass index 30+ - obesity; Translations: [Body mass index 30.0-30.9, adult] Onset: 12-23-2015 Resolved: 12-27-2019 Chronic Other nutritional; endocrine; and metabolic disorders (2 sources) Simple obesity ; Translations: [Other obesity due to excess calories] Onset: 12-23-2015 Chronic Other nutritional; endocrine; and metabolic disorders (1 source) Obesity, unspecified; Translations: [Obesity] Chronic Other nutritional; endocrine; and metabolic disorders (1 source) Overweight Episodic Other screening for suspected conditions (not mental disorders or infectious disease) (15 sources) Other specified abnormal findings of blood chemistry; Translations: [Encounter for screening mammogram for malignant neoplasm of breast] Onset: 09-04-2015 Episodic Other skin disorders (2 sources) Callosity; Translations: [Corns and callosities] 05-16-2024 Episodic Other skin disorders (2 sources) Musculoskeletal finding; Translations: [Atrophic disorder of skin, unspecified] 01-14-2025 Episodic Prolapse of female genital organs (20 sources) Uterine prolapse; Translations: [Uterovaginal prolapse, unspecified] Onset: 08-30-2012 02-03-2024 Chronic Residual codes; unclassified (20 sources) Obstructive sleep apnea syndrome; Translations: [Obstructive sleep apnea (adult) (pediatric)] 02-03-2024 Chronic Residual codes; unclassified (7 sources) Obstructive sleep apnea (adult) (pediatric); Translations: [Obstructive sleep apnea (adult)(pediatric)] Chronic Residual codes; unclassified (20 sources) Postmenopausal state; Translations: [Asymptomatic menopausal state] 02-03-2024 Episodic Residual codes; unclassified (1 source) Family history of malignant neoplasm of breast; Translations: [FAMILY HX MALIG NEOPLASM OF BREAST] Onset: 01-14-2023 Episodic Spondylosis; intervertebral disc disorders; other back problems (2 sources) Spondylosis without myelopathy or radiculopathy, lumbar region; Translations: [Other intervertebral disc degeneration, thoracic region] Onset: 05-07-2022 Chronic Spondylosis; intervertebral disc disorders; other back problems (20 sources) Backache; Translations: [Dorsalgia, unspecified] Onset: 05-07-2022 Episodic Thyroid disorders (20 sources) Thyrotoxicosis; Translations: [Thyrotoxicosis, unspecified without thyrotoxic crisis or storm] Onset: 02-13-2023 Chronic Unclassified (3 sources) LOW BACK PAIN, UNSPECIFIED; Translations: [LOW BACK PAIN, UNSPECIFIED] Onset: 05-07-2022 Unclassified (2 sources) Long-term current use of drug therapy; Translations: [Long-term (current) use of other medications] Onset: 12-07-2017 Urinary tract infections (5 sources) Urinary tract infectious disease; Translations: [Urinary tract infection, site not specified] Onset: 07-14-2013 Episodic Viral infection (5 sources) Disease caused by 2019-nCoV; Translations: [COVID-19] 07-18-2024 Episodic Past or Other Problems Problem Classification Problem Date Documented Da te Episodic/Chronic Bacterial infection; unspecified site (4 sources) Bacterial infectious disease; Translations: [Bacterial infection, unspecified, in conditions classified elsewhere and of unspecified site] Onset: 01-12-2017 Resolved: 06-09-2021 Episodic Chronic kidney disease (8 sources) Chronic kidney disease Deficiency and other anemia (2 sources) Anemia; Translations: [Anemia, unspecified] Onset: 09-27-2015 Episodic Esophageal disorders (20 sources) Esophageal disorders; Translations: [Gastroesophageal reflux disease with esophagitis without hemorrhage] Fracture of lower limb (7 sources) Closed fracture of shaft of femur; Translations: [Unspecified fracture of shaft of unspecified femur, initial encounter for closed fracture] Onset: 09-24-2023 05-16-2024 Episodic Fracture of upper limb (2 sources) Closed fracture of upper end of humerus; Translations: [Closed fracture of unspecified part of upper end of humerus] Onset: 02-15-2014 Episodic Malaise and fatigue (7 sources) Other malaise; Translations: [Other fatigue] Onset: 07-17-2014 Episodic Neoplasms of unspecified nature or uncertain behavior (2 sources) Neoplasm of uncertain behavior of soft tissues; Translations: [Neoplasms of unspecified nature of bone, soft tissue, and skin] Onset: 02-28-2015 Episodic Nonspecific chest pain (2 sources) Chest pain; Translations: [Chest pain, unspecified] Resolved: 04-29-2022 Episodic Other acquired deformities (1 source) Other specified deforming dorsopathies, thoracic region; Translations: [OTH DEFORMING DORSOPATHIES THOR RGN] Onset: 05-07-2022 Episodic Other aftercare (2 sources) Surgical follow-up; Translations: [Surgery follow-up examination] Onset: 10-19-2012 Episodic Other bone disease and musculoskeletal deformities (2 sources) Disorder of bone; Translations: [Other specified disorders of bone density and structure, other site] Resolved: 03-20-2020 Episodic Other bone disease and musculoskeletal deformities (3 sources) Other specified disorders of bone, thigh; Translations: [Other specified disorders of bone, thigh] Onset: 08-15-2024 Episodic Other connective tissue disease (2 sources) Tear of right rotator cuff; Translations: [Unspecified rotator cuff tear or rupture of right shoulder, not specified as traumatic] Onset: 01-12-2017 Episodic Other gastrointestinal disorders (2 sources) Diarrhea; Translations: [Diarrhea] Onset: 07-14-2013 Episodic Other lower respiratory disease (5 sources) Dyspnea, unspecified; Translations: [DYSPNEA UNSPECIFIED] Onset: 05-07-2022 Episodic Other skin disorders (2 sources) Inflamed seborrheic keratosis; Translations: [Inflamed seborrheic keratosis] Resolved: 04-29-2022 Episodic Other skin disorders (2 sources) Atrophoderma; Translations: [Unspecified hypertrophic and atrophic condition of skin] Onset: 08-17-2017 Episodic Other upper respiratory infections (2 sources) Acute maxillary sinusitis; Translations: [Acute maxillary sinusitis, unspecified] Onset: 01-12-2017 Episodic Residual codes; unclassified (2 sources) Requires influenza virus vaccination; Translations: [Need for prophylactic vaccination and inoculation, Influenza] Onset: 08-17-2017 Episodic Unclassified (20 sources) Low back pain, non-specific; Translations: [Low back pain, non-specific] Unclassified (9 sources) Other persistent atrial fibrillation; Translations: [OTHR PERSISTENT ATRIAL FIBRILLATION] Onset: 02-13-2023 Unclassified (1 source) LOW BACK PAIN, UNSPECIFIED; Translations: [LOW BACK PAIN, UNSPECIFIED] Onset: 05-04-2022 Unclassified (1 source) Suspected COVID-19 virus infection Z20.822 Viral infection (1 source) COVID-19 Results Test Name Value Interpretation Reference Range Facility XR Femur and Tibia Views for leg lengthon 01-23-2025 Total limb length discrepancy = 0.3 cm Focal area of cortical thickening in the proximal left femur on single AP view. Recommend dedicated left femur radiographs. [facility] EXAMINATION: BONE LENGTH STUDIES, 01/22/2025 10:52 am COMPARISON: None. HISTORY: ORDERING SYSTEM PROVIDED HISTORY: Leg length discrepancy FINDINGS: Right femur length = 48.8 cm. Right tibia length = 36.0 cm. Right total limb length = 84.8 cm. Left femur length = 48.3 cm. Left tibia length = 36.8 cm. Left total limb length = 85.1 cm. Incidental note made of small area of focal cortical thickening proximal left femoral diaphysis. [facility] José Luis Gill, DO - 01/23/2025 EXAMINATION: BONE LENGTH STUDIES, 01/22/2025 10:52 am COMPARISON: None. HISTORY: ORDERING SYSTEM PROVIDED HISTORY: Leg length discrepancy FINDINGS: Right femur length = 48.8 cm. Right tibia length = 36.0 cm. Right total limb length = 84.8 cm. Left femur length = 48.3 cm. Left tibia length = 36.8 cm. Left total limb length = 85.1 cm. Incidental note made of small area of focal cortical thickening proximal left femoral diaphysis. IMPRESSION: Total limb length discrepancy = 0.3 cm Focal area of cortical thickening in the proximal left femur on single AP view. Recommend dedicated left femur radiographs. [facility] XR Femur and Tibia Views for leg lengthOrdered By: José Luis Gill on 01-23-2025 [facility] Work Phone: XR LEG LENGTH EVALUATIONon 0 01-23-2025 XR LEG LENGTH EVALUATION EXAMINATION: BONE LENGTH STUDIES, 01/22/2025 10:52 am COMPARISON: None. HISTORY: ORDERING SYSTEM PROVIDED HISTORY: Leg length discrepancy FINDINGS: Right femur length = 48.8 cm. Right tibia length = 36.0 cm. Right total limb length = 84.8 cm. Left femur length = 48.3 cm. Left tibia length = 36.8 cm. Left total limb length = 85.1 cm. Incidental note made of small area of focal cortical thickening proximal left femoral diaphysis. IMPRESSION: Total limb length discrepancy = 0.3 cm Focal area of cortical thickening in the proximal left femur on single AP view. Recommend dedicated left femur radiographs. Interpreted by: José Luis Gill DO Signed by: José Luis Gill DO 01/23/25 Final result Normal [facility] XR Femur and Tibia Views for leg lengthon 01-22-2025 Radiology Study observation (narrative) [facility] XR Foot - left 3 [facility] Result: 05-16-24 Bilateral foot weight-bearing three views AP, medial oblique, lateral were obtained. Right foot: Patient has severe hallux abductovalgus right foot with significant lateral deviation of the hallux on the 1st metatarsal proximally 45-50 percent. Toes 3, 4 half splaying, 4th and 5th toe are mildly contracted as are other toes of the 4th and 5th are the worse. Severe arthritis North metatarsal bases 2-4 with significant joint space narrowing and sclerosis. Lateral view shows severe pes planovalgus right foot large plantar fluffy calcaneal spur, midfoot arthritis noted lesser toes are contracted. LEFT FOOT: Patient has moderate to severe hallux abductovalgus left foot irregular 1st metatarsal head medially due to possible previous surgery/ silver bunionectomy, lateral deviation of the hallux of the 1st metatarsal proximally 40 percent. Lesser toes are abducted due to hallux deviation laterally tailor's bunion left adductovarus left 5th toe. Joint space narrowing of the metatarsal bases is not as severe as right though is mostly noted of the 2nd and 3rd metatarsal bases. Lateral view: Severe pes planovalgus left foot very large plantar calcaneal spur, calcific Achilles tendon noted for approximately 1.8 cm small calcifications noted of the plantar fascia distal to the plantar fascial origin. [facility] Radiology Study observation (narrative) [facility] XR Foot - right 3 [facility] Result: 05-16-24 Bilateral foot weight-bearing three views AP, medial oblique, lateral were obtained. Right foot: Patient has severe hallux abductovalgus right foot with significant lateral deviation of the hallux on the 1st metatarsal proximally 45-50 percent. Toes 3, 4 half splaying, 4th and 5th toe are mildly contracted as are other toes of the 4th and 5th are the worse. Severe arthritis North metatarsal bases 2-4 with significant joint space narrowing and sclerosis. Lateral view shows severe pes planovalgus right foot large plantar fluffy calcaneal spur, midfoot arthritis noted lesser toes are contracted. LEFT FOOT: Patient has moderate to severe hallux abductovalgus left foot irregular 1st metatarsal head medially due to possible previous surgery/ silver bunionectomy, lateral deviation of the hallux of the 1st metatarsal proximally 40 percent. Lesser toes are abducted due to hallux deviation laterally tailor's bunion left adductovarus left 5th toe. Joint space narrowing of the metatarsal bases is not as severe as right though is mostly noted of the 2nd and 3rd metatarsal bases. Lateral view: Severe pes planovalgus left foot very large plantar calcaneal spur, calcific Achilles tendon noted for approximately 1.8 cm small calcifications noted of the plantar fascia distal to the plantar fascial origin. [facility] Radiology Study observation (narrative) [facility] [employer] XR FEMUR RIGHT (MIN 2 VIEWS) on 08-15-2024 XR FEMUR RIGHT (MIN 2 VIEWS) EXAMINATION: XRAY VIEWS OF THE RIGHT FEMUR 08/15/2024 2:53 pm COMPARISON: September 24, 2023 HISTORY: ORDERING SYSTEM PROVIDED HISTORY: Closed fracture of shaft of right femur, initial encounter ([facility]) FINDINGS: Interval hardware s/p ORIF mid right femur. Stable total right hip arthroplasty. No acute interval change. Generalized osteopenia. There is atherosclerosis through the soft tissues. IMPRESSION: Status post ORIF right femur fracture. No acute findings. Interpreted by: José Luis Gill DO Signed by: José Luis Gill DO 08/15/24 Final result Normal [facility] Office Visiton 08-11-2024 Follow-up visit [id number] Fatuma Mena 1945 F Date Provider Department Center 08/11/2024 [facility] Family History Problem Relation Age of Onset Heart attack Father Stroke Father Family Status - Relation Status Age at Father Level of Service:[id number] ID OFFICE/OUTPATIENT ESTABLISHED LOW MDM 20 MIN Normal [facility] Glucose mean value [Mass/vol ume] in Blood Estimated from glycated hemoglobinon 07-27-2024 Average glucose Estimated from glycated hemoglobin (Bld) [Mass/Vol] 171 mg/dL [facility] - Chemistry and C hemistry - challengeon 07-27-2024 TSH Qn 2.479 m[IU]/L 0.358-3.740 [facility] - Hematology and Cell countson 07-27-2024 HbA1c (Bld) [Mass fraction] 7.6 % High 4.5-6.2 [facility] Comment on above: ADA RECOMMENDED LIMI T 4.0 - 6.0ADA THERAPEUTIC TARGET < 7.0ACTION SUGGESTED> 7.0 Influenza virus B Ag [Presen ce] in Upper respiratory specimen by Rapid immunoassayon 07-18-2024 FLUBV Ag IA.rapid Ql (Nph) Negative [facility] No Panel Informationon 07-18 Influenza Type A (Rapid) Negative [facility] POC SARS CoV-[address] [facility] - Chemistry and C hemistry - challengeon 07-10-2024 Bilirubin Ql (U) Negative [facility] Glucose (U) [Mass/Vol] Negative [facility] Ketones Ql (U) 1.005 [facility] pH (U) 5.0 [pH] [facility] Specific gravity (U) [Rel density] 1.010 [facility] Urobilinogen (U) [Mass/Vol] 0.2 mg/dL [facility] Laboratory - Specimen inform ationon 07-10-2024 Appearance (U) cloudy [facility] Color (U) yellow [facility] Laboratory - Urinalysison Leukocyte esterase Test strip Ql (U) moderate [facility] Nitrite Ql (U) Negative [facility] Protein Ql (U) 4 [facility] No Panel Informationon 07-10 Urine Occult Blood 7.5 [facility] - Chemistry and C hemistry - challengeon 05-30-2024 Bilirubin Ql (U) Negative [facility] Glucose (U) [Mass/Vol] Negative [facility] Ketones Ql (U) Negative [facility] pH (U) 5.0 [pH] [facility] Specific gravity (U) [Rel density] 1.010 [facility] Urobilinogen (U) [Mass/Vol] 0.2 mg/dL [facility] Laboratory - Specimen inform ationon 05-30-2024 Appearance (U) cloudy [facility] Color (U) yellow [facility] Laboratory - Urinalysison Leukocyte esterase Test strip Ql (U) ++ [facility] Nitrite Ql (U) Negative [facility] Protein Ql (U) Positive [facility] No Panel Informationon 05-30 Urine Occult Blood +++ [facility] Basophils Auto (Bld) [#/Vol] on 02-25-2024 Basophils (Bld) [#/Vol] 0.1 10 3/uL 0.0-0.1 [facility] Basophils/100 WBC Auto (Bld) on 02-25-2024 Basophils/100 WBC (Bld) 0.9 % 0.2-2.0 [facility] Cholesterol in LDL Calc [Mas s/Vol]on 02-25-2024 Cholesterol in LDL [Mass/Vol] 76.0 mg/dL [facility] Comment on above: <100 mg/dl [id number] 0-129 mg/dl NEAR OR ABOVE [id number] mg/dl BORDERLINE [id number] mg/dl HIGH>190 mg/dl VERY HIGH Cholesterol in VLDL Calc [Ma ss/Vol]on 02-25-2024 Cholesterol in VLDL [Mass/Vol] 19.6 mg/dL [facility] Eosinophils/100 WBC Auto (Bl d)on 02-25-2024 Eosinophils/100 WBC (Bld) 5.1 % 0.9-7.0 [facility] Erythrocyte distribution wid th Auto (RBC) [Ratio]on 02-25-2024 Erythrocyte distribution width (RBC) [Ratio] 14.8 % 11.0-15.0 [facility] Estimated glomerular filtrat ion rate (GFR) non- Americanon 02-25-2024 GFR/1.73 sq M.predicted among non-blacks MDRD (S/P/Bld) [Vol rate/Area] 53 mL/min/{1.73_m2} >=60 [facility] Globulin Calc (S) [Mass/Vol] on 02-25-2024 Globulin (S) [Mass/Vol] 3.7 g/dL [facility] Glucose mean value [Mass/vol ume] in Blood Estimated from glycated hemoglobinon 02-25-2024 Average glucose Estimated from glycated hemoglobin (Bld) [Mass/Vol] 137 mg/dL [facility] Hematocrit Auto (Bld) [Volum e fraction]on 02-25-2024 Hematocrit (Bld) [Volume fraction] 40.0 % 36.0-48.0 [facility] Hemoglobin [Mass/volume] in Bloodon 02-25-2024 Hemoglobin (Bld) [Mass/Vol] 12.9 g/dL 12.0-16.0 [facility] Laboratory - Chemistry and C hemistry - challengeon 02-25-2024 Albumin [Mass/Vol] 3.9 g/dL 3.4-5.0 [facility] ALP [Catalytic activity/Vol] 80 U/L 46-116 [facility] ALT [Catalytic activity/Vol] 45 U/L 14-59 [facility] AST [Catalytic activity/Vol] 34 U/L 15-37 [facility] Bilirubin [Mass/Vol] 0.6 mg/dL 0.2-1.0 [facility] Calcium [Mass/Vol] 9.7 mg/dL 8.5-10.1 [facility] Chloride [Moles/Vol] 103 mmol/L 98-107 [facility] Cholesterol [Mass/Vol] 157 mg/dL <=[address] [facility] Cholesterol in HDL [Mass/Vol] 62 mg/dL 40-60 [facility] Comment on above: > or =60 mg/dl - LOW CARDIOVASCULAR RISK<40 mg/dl - HIGH CARDIOVASCULAR RISK CO2 [Moles/Vol] 26.5 mmol/L 21.0-32.0 [facility] Creatinine [Mass/Vol] 1.00 mg/dL 0.55-1.02 [facility] Free T4 [Mass/Vol] 0.55 ng/dL 0.76-1.46 [facility] GFR/1.73 sq M.predicted MDRD (S/P/Bld) [Vol rate/Area] mL/min/{1.73_m2} >=60 [facility] Glucose [Mass/Vol] 136 mg/dL 74-106 [facility] Potassium [Moles/Vol] 3.9 mmol/L 3.5-5.1 [facility] Protein [Mass/Vol] 7.6 g/dL 6.4-8.2 [facility] Sodium [Moles/Vol] 141 mmol/L 136-145 [facility] Triglyceride [Mass/Vol] 98 mg/dL <=150 [facility] TSH Qn 13.739 m[IU]/L 0.358-3.740 [facility] Urea nitrogen [Mass/Vol] 23.0 mg/dL 7.0-18.0 [facility] Urea nitrogen/Creatinine [Mass ratio] 23.0 mg/mg [facility] Laboratory - Hematology and Cell countson 02-25-2024 HbA1c (Bld) [Mass fraction] 6.4 % 4.5-6.2 [facility] Comment on above: ADA RECOMMENDED LIMI T 4.0 - 6.0ADA THERAPEUTIC TARGET < 7.0ACTION SUGGESTED> 7.0 Immature granulocytes/100 WBC (Bld) 0.2 % 0.0-0.5 [facility] Leukocytes [#/volume] correc london for nucleated erythrocytes in Blood by Automated counon 02-25-2024 WBC corrected for nucl RBC Auto (Bld) [#/Vol] 5.7 10 3/uL 4.0-11.0 [facility] Lymphocytes Auto (Bld) [#/Vo l]on 02-25-2024 Lymphocytes (Bld) [#/Vol] 1.1 10 3/uL 1.2-3.8 [facility] Lymphocytes/100 WBC Auto (Bl d)on 02-25-2024 Lymphocytes/100 WBC (Bld) 19.0 % 20.5-60.0 [facility] MCH Auto (RBC) [Entitic mass ]on 02-25-2024 MCH (RBC) [Entitic mass] 32.1 pg 26.7-34.0 [facility] MCHC Auto (RBC) [Mass/Vol]on 02-25-2024 MCHC (RBC) [Mass/Vol] 32.3 g/dL 29.9-35.2 [facility] MCV Auto (RBC) [Entitic vol] on 02-25-2024 MCV (RBC) [Entitic vol] 99.5 fL 81.0-99.0 [facility] Microalbumin [Mass/volume] i n Urineon 02-25-2024 Albumin DL <= 20 mg/L (U) [Mass/Vol] mg/dL <=30.0 [facility] Monocytes Auto (Bld) [#/Vol] on 02-25-2024 Monocytes (Bld) [#/Vol] 0.5 10 3/uL 0.3-0.8 [facility] Monocytes/100 WBC Auto (Bld) on 02-25-2024 Monocytes/100 WBC (Bld) 8.6 % 1.7-12.0 [facility] Neutrophils Auto (Bld) [#/Vo l]on 02-25-2024 Neutrophils (Bld) [#/Vol] 3.8 10 3/uL 1.4-6.5 [facility] Neutrophils/100 WBC Auto (Bl d)on 02-25-2024 Neutrophils/100 WBC (Bld) 66.2 % 43.0-75.0 [facility] No Panel Informationon 02-24 Eosinophils # (Auto) 0.3 10 3/uL 0.0-0.7 [facility] Immature Granulocyte # (Auto) 0.01 10 3/uL 0.00-0.03 [facility] Total Triiodothyronine 117 ng/dL 71-[address] [facility] Comment on above: Performed at: - [address] [id number] Director: Brad Figueroa PhD, Phone: [phone] Platelet mean volume Auto (B ld) [Entitic vol]on 02-25-2024 Platelet mean volume (Bld) [Entitic vol] 10.3 fL 9.5-13.5 [facility] Platelets Auto (Bld) [#/Vol] on 02-25-2024 Platelets (Bld) [#/Vol] 232 10 3/uL 150-450 [facility] RBC Auto (Bld) [#/Vol]on RBC (Bld) [#/Vol] 4.02 10 6/uL 4.20-5.40 [facility] Serum or plasma albumin/glob ulin mass ratioon 02-25-2024 Albumin/Globulin [Mass ratio] 1.1 {ratio} [facility] Serum or plasma anion gap de terminationon 02-25-2024 Anion gap [Moles/Vol] 15.4 mmol/L Fi [facility] Serum or plasma total choles terol/high density lipoprotein (HDL) cholesterol mass katie 02-25-2024 Cholesterol.total/Chol esterol in HDL [Mass ratio] 2.5 {ratio} [facility] Comment on above: 3.3 - 4.4 LOW RISK4. 4 - 7.1 AVERAGE RISK7.1 - 11.0 MODERATE RISK>11.0 HIGH RISK Office Visiton 02-01-2024 Follow-up visit [id number] Fatuma Mena 1945 F Date Provider Department Center 02/01/2024 [address]-[facility] [facility] Family History Problem Relation Age of Onset Heart attack Father Stroke Father Family Status - Relation Status Age at Father Level of Service:[id number] ID OFFICE/OUTPATIENT ESTABLISHED LOW MDM 20 MIN Normal [facility] Office Visiton 11-23-2023 Follow-up visit [id number] Fatuma Mena 1945 F Date Provider Department Center 11/23/2023 KARLEE AYALA [facility] Family History Problem Relation Age of Onset Heart attack Father Stroke Father Family Status - Relation Status Age at Father Level of Service:95846 ID OFFICE/OUTPATIENT ESTABLISHED MOD MDM 30 MIN Normal [facility] HPon 10-21-2023 [facility] Electrophysiology Consult Note Reason for visit: afib, right THR cardiac clearance HPI: Fatuma Mena is a 78 y.o. year old with past medical history of A-fib, type 2 diabetes without insulin use, hypertension, left breast cancer, hyperlipidemia, essential tremor, SHIRA, anxiety, osteoporosis, stage IIIb kidney disease Referred by PCP for A-fib and cardiac clearance per PCP she was found to be in A-fib and has history of A-fib. Around May 11, 2023 she was started on Eliquis per Holter monitor finding showing A-fib. She was on Coreg 12.5 mg twice daily and this was increased to 25 mg twice daily, today with A-fib she has borderline RVR. She does notice some shortness of breath with exertion and occasional palpitations but otherwise states she has barely noticed that she is in A-fib. She had Lexiscan stress test 11/20/2021 which showed no acute or reversible ischemia, stable/mild anterior wall fixed perfusion defect versus breast attenuation, normal wall motion ejection fraction. Echo 05/12/2022 showed normal LVEF 70 to 75%, grade 1 diastolic dysfunction, LA moderately dilated, RVSP 30 mmHg, mild aortic regurgitation. She had Holter monitor 12/2022 which showed A-fib as the predominant rhythm with heart rate up to 139 bpm ECG 06/22/2023 A-fib PMH: Medical History Past Medical History: Diagnosis Date Abnormal ECG Arrhythmia Atrial fibrillation (CMS/HCC) Diabetes mellitus (CMS/HCC) Hypertension PSH: Surgical History Past Surgical History: Procedure Laterality Date HYSTERECTOMY MASTECTOMY, PARTIAL TUBAL LIGATION SH: Social Determinants of Health Tobacco Use: Low Risk (07/13/2023) Patient History Smoking Tobacco Use: Never Smokeless Tobacco Use: Never Passive Exposure: Not on file Alcohol Use: Not on file Financial Resource Strain: Not on file Food Insecurity: Not on file Transportation Needs: Not on file Physical Activity: Not on file Stress: Not on file Social Connections: Not on file Intimate Partner Violence: Not on file Depression: Not on file Housing Stability: Not on file Allergies: Allergies Allergen Reactions Sertraline shaking Weight: 73kg Visit Vitals BP 116/68 (BP Location: Right arm, Patient Position: Sitting, BP Cuff Size: Large adult) Pulse 105 Ht 1.626 m (5' 4 ) Wt 73 kg (161 lb) SpO2 95% BMI 27.64 kg/m??? Smoking Status Never BSA 1.82 m??? Meds: Current Outpatient Medications on File Prior to Visit Medication Sig Dispense Refill ALPRAZolam (Xanax) 0.25 mg tablet Take 0.25 mg by mouth. atorvastatin (Lipitor) 40 mg tablet Take 40 mg by mouth in the evening. calcium carbonate-vitamin D3 600 mg-5 mcg (200 unit) tablet Take by mouth. dilTIAZem CD (Cardizem CD) 120 mg 24 hr capsule Take 1 capsule (120 mg) by mouth in the morning. 30 capsule 11 Eliquis 5 mg tablet Take 5 mg by mouth in the morning and at bedtime. glimepiride (Amaryl) 2 mg tablet 3 mg. hydroCHLOROthiazide (HYDRODiuril) 25 mg tablet Take 25 mg by mouth in the morning. lisinopril 20 mg tablet Take 40 mg by mouth in the morning. omeprazole (PriLOSEC) [address] capsule Take 10 mg by mouth. oxybutynin XL (Ditropan-XL) 10 mg 24 hr tablet Take 10 mg by mouth at bedtime. Trulicity 0.75 mg/0.5 mL pen injector INJECT 1 SUBCUTANEOUSLY ONCE A WEEK No current facility-administere d medications on file prior to visit. ROS: Cardio Basic Cardiovascular Symptoms: no lightheadedness, no leg edema, no syncope, no orthopnea, no PND, no claudication, Constitutional Constitutional: no fever, no night sweats, no significant weight gain, no significant weight loss, no exercise intolerance Eyes Eyes: no dry eyes, no irritation, no vision change ENMT Ears: no difficulty hearing, no ear pain Nose: no frequent nosebleeds, Mouth/Throat: no sore throat, no bleeding gums, no snoring, no dry mouth, no mouth ulcers, no oral abnormalities, no teeth problems Respiratory Respiratory: no cough, no wheezing, no coughing up blood, no sleep apnea Musculoskeletal Musculoskeletal: no muscle aches, no muscle weakness, joint pain+, no back pain, no swelling in the extremities Integumentary Skin no rash, no ulcer, no varicosities, no discoloration, no pruritus Neurologic Neurologic: no loss of consciousness, no weakness, no numbness, no seizures, no dizziness, no headaches Psychiatric Psych: no depression, feeling safe in relationship, no alcohol abuse, Hematologic/Lymphati c Hematologic/Lymphati c no swollen glands, no bruising Physical Exam: Constitutional General Appearance: well-nourished, well-developed, appears stated age Level of Distress: comfortable Psychiatric Mental Status: alert, normal affect Orientation: oriented to time, place, and person Insight: good judgement Eyes Lids and Conjunctivae: non-injected, no xanthelasma ENMT Ears: no lesions on external ear Nose: no lesions on external nose Oropharynx: no cyanosis, no pal (more content not included)... Normal [facility] NURSNOTEon 10-21-2023 NURSNOTE Report called to [facility] [place] Normal [facility] GLUCOSE POCon 09-30-2023 Glucose [Mass/Vol] 162 mg/dL High [address] Comment on above: Performed By: #### A WILL CBCWD, ICAL, EGFR1, BMPX #### [facility] [address] [place] [address] GLUCOSE POCon 09-29-2023 Glucose [Mass/Vol] 255 mg/dL High [address] Comment on above: Performed By: #### P OCGL #### [facility] [address] [place] [address] Glucose [Mass/Vol] 172 mg/dL High [address] [place] [address] Comment on above: Performed By: #### P OCGL #### [facility] [address] [place] [address] Glucose [Mass/Vol] 248 mg/dL High [address] Comment on above: Performed By: #### A ALINE SOLIS, ICAL, EGFR1, BMPX #### [facility] [address] [place] [address] GLUCOSE POCon 09-28-2023 Glucose [Mass/Vol] 200 mg/dL High [address] [place] [address] Comment on above: Performed By: #### A WILL CBCWD, ICAL, EGFR1, BMPX #### [facility] [address] [place] [address] Glucose [Mass/Vol] 226 mg/dL High [address] [place] [address] Comment on above: Performed By: #### A WILL, CBCWD, ICAL, EGFR1, BMPX #### [facility] [address] [place] [address] Glucose [Mass/Vol] 230 mg/dL High [address] [place] [address] Comment on above: Performed By: #### A WILL CBCWD, ICAL, EGFR1, BMPX #### [facility] [address] [place] [address] Glucose [Mass/Vol] 204 mg/dL High 70-108 [facility] Comment on above: Performed By: #### A ALINE SOLIS, ICAL, EGFR1, BMPX #### [facility] [address] [place] [address] ANION GAPon 09-27-2023 Anion gap [Moles/Vol] 9.0 mmol/L Normal 8.0-16.0 [facility] Comment on above: Result Comment: ANIO N GAP = Sodium -(Chloride + CO2) Performed By: #### A ALINE SOLIS, ICAL, EGFR1, BMPX #### [facility] [address] [place] [address] BASIC METABOL PANELon 2022 Calcium [Mass/Vol] 8.5 mg/dL Normal 8.5-10.5 [facility] Comment on above: Performed By: #### A ALINE SOLIS, ICAL, EGFR1, BMPX #### [facility] [address] [place] [address] Chloride [Moles/Vol] 102 mmol/L Normal 98-111 [facility] Comment on above: Performed By: #### A ALINE SOLIS, ICAL, EGFR1, BMPX #### [facility] [address] [place] [address] CO2 [Moles/Vol] 25 mmol/L Normal 23-33 [facility] Comment on above: Performed By: #### A ALINE SOLIS, ICAL, EGFR1, BMPX #### [facility] [address] [place] [address] Creatinine [Mass/Vol] 0.7 mg/dL Normal 0.4-1.2 [facility] Comment on above: Performed By: #### A ALINE SOLIS, ICAL, EGFR1, BMPX #### [facility] [address] [place] [address] Glucose [Mass/Vol] 232 mg/dL High 70-108 [facility] Comment on above: Performed By: #### A NION, CBCWD, ICAL, EGFR1, BMPX #### [place] [address] POTASSIUM WITH REFLEX MG 4.1 meq/L Normal 3.5-5.2 [facility] Comment on above: Performed By: #### A WILL, CBCWD, ICAL, EGFR1, BMPX #### [place] [address] Sodium [Moles/Vol] 136 mmol/L Normal 135-145 [facility] Comment on above: Performed By: #### A ALINE SOLIS, ICAL, EGFR1, BMPX #### [place] [address] Urea nitrogen [Mass/Vol] 27 mg/dL High 7-22 [facility] Comment on above: Performed By: #### A ALINE SOLIS, ICAL, EGFR1, BMPX #### [place] [address] CBC WITH DIFFERENTIALon 11-0 6-2022 ABS BASOPHILS 0.0 thou/mm3 Normal 0.0-0.1 [facility] Comment on above: Performed By: #### A ALINE SOLIS, ICAL, EGFR1, BMPX #### [place] [address] ABS EOSINOPHILS 0.0 thou/mm3 Normal 0.0-0.4 [facility] Comment on above: Performed By: #### A WILL CBCWD, ICAL, EGFR1, BMPX #### [place] [address] ABS IMMATURE GRANS (IG) 0.08 thou/mm3 High 0.00-0.07 [facility] Comment on above: Performed By: #### A NIRANJIT, CBCWD, ICAL, EGFR1, BMPX #### [place] [address] ABS LYMPHOCYTES 0.7 thou/mm3 Low 1.0-4.8 [facility] Comment on above: Performed By: #### A WILL, CBCWD, ICAL, EGFR1, BMPX #### [facility] [address] [place] [address] ABS MONOCYTES 0.5 thou/mm3 Normal 0.4-1.3 [facility] Comment on above: Performed By: #### A WILL, CBCWD, ICAL, EGFR1, BMPX #### [facility] [address] [place] [address] ABS NEUTROPHILS 9.6 thou/mm3 High 1.8-7.7 [facility] Comment on above: Performed By: #### A NIRANJIT, CBCWD, ICAL, EGFR1, BMPX #### [address] [address] Basophils/100 WBC (Bld) 0.1 % Normal [facility] Comment on above: Performed By: #### A WILL, CBCWD, ICAL, EGFR1, BMPX #### [address] [address] Eosinophils/100 WBC (Bld) 0.0 % Normal [facility] Comment on above: Performed By: #### A WILL, CBCWD, ICAL, EGFR1, BMPX #### [address] [address] Erythrocyte distribution width (RBC) [Ratio] 13.2 % Normal 11.5-14.5 [facility] Comment on above: Performed By: #### A NIRANJIT, CBCWD, ICAL, EGFR1, BMPX #### [address] [address] Hematocrit (Bld) [Volume fraction] 24.4 % Low 37.0-47.0 [facility] Comment on above: Performed By: #### A NIRANJIT, CBCWD, ICAL, EGFR1, BMPX #### [address] [address] Hemoglobin (Bld) [Mass/Vol] 7.7 g/dL Low 12.0-16.0 [facility] Comment on above: Performed By: #### A NIRANJIT, CBCWD, ICAL, EGFR1, BMPX #### [address] [address] IMMATURE GRANS (IG) 0.7 % Normal [facility] Comment on above: Performed By: #### A WILL, CBCWD, ICAL, EGFR1, BMPX #### [address] [address] Lymphocytes/100 WBC (Bld) 6.4 % Normal [facility] Comment on above: Performed By: #### A WILL, CBCWD, ICAL, EGFR1, BMPX #### [facility] [address] [place] [address] MCH (RBC) [Entitic mass] 32.9 pg Normal 26.0-33.0 [facility] Comment on above: Performed By: #### A WILL, CBCWD, ICAL, EGFR1, BMPX #### [facility] [address] [place] [address] MCHC (RBC) [Mass/Vol] 31.6 g/dL Low 32.2-35.5 [facility] Comment on above: Performed By: #### A WILL, CBCWD, ICAL, EGFR1, BMPX #### [facility] [address] [place] [address] MCV (RBC) [Entitic vol] 104.3 fL High 81.0-99.0 [facility] Comment on above: Performed By: #### A WILL, CBCWD, ICAL, EGFR1, BMPX #### [address] [address] Monocytes/100 WBC (Bld) 4.4 % Normal [facility] Comment on above: Performed By: #### A WILL, CBCWD, ICAL, EGFR1, BMPX #### [facility] [address] [place] [address] Neutrophils/100 WBC (Bld) 88.4 % Normal [facility] Comment on above: Performed By: #### A WILL, CBCWD, ICAL, EGFR1, BMPX #### [address] [address] NRBC 0 /100 wbc Normal [facility] Comment on above: Performed By: #### A WILL, CBCWD, ICAL, EGFR1, BMPX #### [place] [address] PLATELET 183 thou/mm3 Normal 130-400 [facility] Comment on above: Performed By: #### A WILL, CBCWD, ICAL, EGFR1, BMPX #### [place] [address] Platelet mean volume (Bld) [Entitic vol] 10.5 fL Normal 9.4-12.4 [facility] Comment on above: Performed By: #### A WILL, CBCWD, ICAL, EGFR1, BMPX #### [place] [address] RBC 2.34 mill/mm3 Low 4.20-5.40 [facility] Comment on above: Performed By: #### A WILL, CBCWD, ICAL, EGFR1, BMPX #### [place] [address] RDW-SD 49.1 fL High 35.0-45.0 [facility] Comment on above: Performed By: #### A WILL, CBCWD, ICAL, EGFR1, BMPX #### [place] [address] WBC 10.9 thou/mm3 High 4.8-10.8 [facility] Comment on above: Performed By: #### A WILL, CBCWD, ICAL, EGFR1, BMPX #### [place] [address] GFR, ESTIMATEDon 09-27-2023 GFR/1.73 sq M.predicted MDRD (S/P/Bld) [Vol rate/Area] mL/min/{1.73_m2} Normal >60 [facility] Comment on above: Result Comment: Seth atric calculator link https://www.kidney.org/professionals/kdoqi/gfr_calculatorped Effective Aug 24, 2022 These results are not intended for use in patients <18 years of age. eGFR results are calculated without a race factor using the 2020 CKD-EPI equation. Careful clinical correlation is recommended, particularly when comparing to results calculated using previous equations. The CKD-EPI equation is less accurate in patients with extremes of muscle mass, extra-renal metabolism of creatinine, excessive creatine ingestion, or following therapy that affects renal tubular secretion. Performed By: #### A ALINE SOLIS, ICAL, EGFR1, BMPX #### [address] [address] GLUCOSE POCon 09-27-2023 Glucose [Mass/Vol] 280 mg/dL [facility] [address] Comment on above: Performed By: #### P OCGL #### [address] [address] Glucose [Mass/Vol] 285 mg/dL [address] Comment on above: Performed By: #### A ALINE SOLIS, ICAL, EGFR1, BMPX #### [address] [address] Glucose [Mass/Vol] 328 mg/dL [address] Comment on above: Performed By: #### A ALINE SOLIS, ICAL, EGFR1, BMPX #### [address] [address] Glucose [Mass/Vol] 237 mg/dL [address] Comment on above: Performed By: #### A ALINE SOLIS, ICAL, EGFR1, BMPX #### [address] [address] ANION GAPon 09-26-2023 Anion gap [Moles/Vol] 14.0 mmol/L Normal 8.0-16.0 [facility] Comment on above: Result Comment: ANIO N GAP = Sodium -(Chloride + CO2) Performed By: #### A ALINE SOLIS, ICAL, EGFR1, BMPX #### [address] [address] BASIC METABOL PANELon 2022 Calcium [Mass/Vol] 9.0 mg/dL Normal 8.5-10.5 [facility] Comment on above: Performed By: #### A NION, CBCWD, ICAL, EGFR1, BMPX #### [facility] [address] [place] [address] Chloride [Moles/Vol] 100 mmol/L Normal 98-111 [facility] Comment on above: Performed By: #### A WILL, CBCWD, ICAL, EGFR1, BMPX #### [facility] [address] [place] [address] CO2 [Moles/Vol] 22 mmol/L Low 23-33 [facility] Comment on above: Performed By: #### A WILL, CBCWD, ICAL, EGFR1, BMPX #### [facility] [address] [place] [address] Creatinine [Mass/Vol] 1.0 mg/dL Normal 0.4-1.2 [facility] Comment on above: Performed By: #### A WILL, CBCWD, ICAL, EGFR1, BMPX #### [facility] [address] [place] [address] Glucose [Mass/Vol] 258 mg/dL High 70-108 [facility] Comment on above: Performed By: #### A WILL, CBCWD, ICAL, EGFR1, BMPX #### [facility] [address] [address] POTASSIUM WITH REFLEX MG 4.1 meq/L Normal 3.5-5.2 [facility] Comment on above: Performed By: #### A WILL, CBCWD, ICAL, EGFR1, BMPX #### [facility] [address] [place] [address] Sodium [Moles/Vol] 136 mmol/L Normal 135-145 [facility] Comment on above: Performed By: #### A WILL, CBCWD, ICAL, EGFR1, BMPX #### [facility] [address] [place] [address] Urea nitrogen [Mass/Vol] 28 mg/dL High 7-22 [facility] Comment on above: Performed By: #### A WILL, CBCWD, ICAL, EGFR1, BMPX #### [facility] [address] [place] [address] CALCIUM (IONIZED) * WBon CALCIUM (IONIZED) * WB 1.21 mmol/L Normal 1.12-1.32 [facility] Comment on above: Performed By: #### A WILL, CBCWD, ICAL, EGFR1, BMPX #### [place] [address] CBC WITH DIFFERENTIALon 11 ABS BASOPHILS 0.0 thou/mm3 Normal 0.0-0.1 [facility] Comment on above: Performed By: #### A WILL, CBCWD, ICAL, EGFR1, BMPX #### [place] [address] ABS EOSINOPHILS 0.0 thou/mm3 Normal 0.0-0.4 [facility] Comment on above: Performed By: #### A WILL, CBCWD, ICAL, EGFR1, BMPX #### [place] [address] ABS IMMATURE GRANS (IG) 0.04 thou/mm3 Normal 0.00-0.07 [facility] Comment on above: Performed By: #### A WILL, CBCWD, ICAL, EGFR1, BMPX #### [place] [address] ABS LYMPHOCYTES 0.6 thou/mm3 Low 1.0-4.8 [facility] Comment on above: Performed By: #### A WILL, CBCWD, ICAL, EGFR1, BMPX #### [place] [address] ABS MONOCYTES 0.4 thou/mm3 Normal 0.4-1.3 [facility] Comment on above: Performed By: #### A NIRANJIT, CBCWD, ICAL, EGFR1, BMPX #### [place] [address] ABS NEUTROPHILS 11.4 thou/mm3 High 1.8-7.7 [facility] Comment on above: Performed By: #### A NIRANJIT, CBCWD, ICAL, EGFR1, BMPX #### [address] [address] Basophils/100 WBC (Bld) 0.1 % Normal [facility] Comment on above: Performed By: #### A ALINE SOLIS, ICAL, EGFR1, BMPX #### [address] [address] Eosinophils/100 WBC (Bld) 0.0 % Normal [facility] Comment on above: Performed By: #### A WILL CBCTUAN, ICAL, EGFR1, BMPX #### [address] [address] Erythrocyte distribution width (RBC) [Ratio] 13.2 % Normal 11.5-14.5 [facility] Comment on above: Performed By: #### A ALINE SOLIS, ICAL, EGFR1, BMPX #### [address] [address] Hematocrit (Bld) [Volume fraction] 27.8 % Low 37.0-47.0 [facility] Comment on above: Performed By: #### A ALINE SOLIS, ICAL, EGFR1, BMPX #### [address] [address] Hemoglobin (Bld) [Mass/Vol] 8.8 g/dL Low 12.0-16.0 [facility] Comment on above: Performed By: #### A ALINE SOLIS, ICAL, EGFR1, BMPX #### [address] [address] IMMATURE GRANS (IG) 0.3 % Normal [facility] Comment on above: Performed By: #### A WILL CBCTUAN, ICAL, EGFR1, BMPX #### [address] [address] Lymphocytes/100 WBC (Bld) 4.7 % Normal [facility] Comment on above: Performed By: #### A WILL CBCWD, ICAL, EGFR1, BMPX #### [address] [address] MCH (RBC) [Entitic mass] 32.4 pg Normal 26.0-33.0 [facility] Comment on above: Performed By: #### A ALINE SOLIS, ICAL, EGFR1, BMPX #### [facility] [address] [place] [address] MCHC (RBC) [Mass/Vol] 31.7 g/dL Low 32.2-35.5 [facility] Comment on above: Performed By: #### A ALINE SOLIS, ICAL, EGFR1, BMPX #### [facility] [address] [place] [address] MCV (RBC) [Entitic vol] 102.2 fL High 81.0-99.0 [facility] Comment on above: Performed By: #### A ALINE SOLIS, ICAL, EGFR1, BMPX #### [address] [address] Monocytes/100 WBC (Bld) 3.1 % Normal [facility] Comment on above: Performed By: #### A WILL CBCTUAN, ICAL, EGFR1, BMPX #### [address] [address] Neutrophils/100 WBC (Bld) 91.8 % Normal [facility] Comment on above: Performed By: #### A WILL CBCTUAN, ICAL, EGFR1, BMPX #### [address] [address] NRBC 0 /100 wbc Normal [facility] Comment on above: Performed By: #### A WILL CBCTUAN, ICAL, EGFR1, BMPX #### [facility] [address] [place] [address] PLATELET 230 thou/mm3 Normal 130-400 [facility] Comment on above: Performed By: #### A WILL CBCWD, ICAL, EGFR1, BMPX #### [facility] [address] [place] [address] Platelet mean volume (Bld) [Entitic vol] 10.4 fL Normal 9.4-12.4 [facility] Comment on above: Performed By: #### A NION, CBCWD, ICAL, EGFR1, BMPX #### [address] [address] RBC 2.72 mill/mm3 Low 4.20-5.40 [facility] Comment on above: Performed By: #### A WILL, CBCWD, ICAL, EGFR1, BMPX #### [address] [address] RDW-SD 49.3 fL High 35.0-45.0 [facility] Comment on above: Performed By: #### A WILL, CBCWD, ICAL, EGFR1, BMPX #### [address] [address] WBC 12.4 thou/mm3 High 4.8-10.8 [facility] Comment on above: Performed By: #### A WILL, CBCTUAN, ICAL, EGFR1, BMPX #### [address] [address] GFR, ESTIMATEDon 09-26-2023 GFR/1.73 sq M.predicted MDRD (S/P/Bld) [Vol rate/Area] 57 mL/min/{1.73_m2} Abnormal >60 [facility] Comment on above: Result Comment: Seth atric calculator link https://www.kidney.org/professionals/kdoqi/gfr_calculatorped Effective Aug 24, 2022 These results are not intended for use in patients <18 years of age. eGFR results are calculated without a race factor using the 2020 CKD-EPI equation. Careful clinical correlation is recommended, particularly when comparing to results calculated using previous equations. The CKD-EPI equation is less accurate in patients with extremes of muscle mass, extra-renal metabolism of creatinine, excessive creatine ingestion, or following therapy that affects renal tubular secretion. Performed By: #### A WILL, CBCWD, ICAL, EGFR1, BMPX #### [address] [address] GLUCOSE POCon 09-26-2023 Glucose [Mass/Vol] 287 mg/dL High 70-108 [facility] Comment on above: Performed By: #### A WILL, CBCWD, ICAL, EGFR1, BMPX #### [facility] [address] [place] [address] Glucose [Mass/Vol] 329 mg/dL High 70-108 [facility] Comment on above: Performed By: #### A WILL, CBCWD, ICAL, EGFR1, BMPX #### [facility] [address] [place] [address] ANION GAPon 09-25-2023 Anion gap [Moles/Vol] 14.0 mmol/L Normal 8.0-16.0 [facility] Comment on above: Result Comment: ANIO N GAP = Sodium -(Chloride + CO2) Performed By: #### A WILL, CBCWD, ICAL, EGFR1, BMPX #### [facility] [address] [place] [address] BASIC METABOL PANELon 2022 Calcium [Mass/Vol] 8.2 mg/dL Low 8.5-10.5 [facility] Comment on above: Performed By: #### A WILL, CBCWD, ICAL, EGFR1, BMPX #### [facility] [address] [place] [address] Chloride [Moles/Vol] 97 mmol/L Low 98-111 [facility] Comment on above: Performed By: #### A WILL, CBCWD, ICAL, EGFR1, BMPX #### [facility] [address] [place] [address] CO2 [Moles/Vol] 24 mmol/L Normal 23-33 [facility] Comment on above: Performed By: #### A WILL, CBCWD, ICAL, EGFR1, BMPX #### [facility] [address] [place] [address] Creatinine [Mass/Vol] 0.9 mg/dL Normal 0.4-1.2 [facility] Comment on above: Performed By: #### A WILL, CBCWD, ICAL, EGFR1, BMPX #### [facility] [address] [place] [address] Glucose [Mass/Vol] 112 mg/dL High 70-108 [facility] Comment on above: Performed By: #### A WILL, BRIANNEWD, ICAL, EGFR1, BMPX #### [facility] [employer] [address] [place] [address] POTASSIUM WITH REFLEX MG 4.0 meq/L Normal 3.5-5.2 [facility] Comment on above: Result Comment: Low level specimen hemolysis is present as indicated by the interference level index on the Peggy analyzer. The reported K+ level may be falsely increased. If clinically warranted, recollection of the specimen is suggested. Performed By: #### A WILL, BRIANNEWD, ICAL, EGFR1, BMPX #### [facility] [address] [place] [address] Sodium [Moles/Vol] 135 mmol/L Normal 135-145 [facility] Comment on above: Performed By: #### A WILL, ALINE, ICAL, EGFR1, BMPX #### [address] [address] Urea nitrogen [Mass/Vol] 24 mg/dL High 7-22 [facility] Comment on above: Performed By: #### A ALINE SOLIS, ICAL, EGFR1, BMPX #### [address] [address] CBC WITH DIFFERENTIALon 11-0 4-2022 ABS BASOPHILS 0.0 thou/mm3 Normal 0.0-0.1 [facility] Comment on above: Performed By: #### C ISAMAR, REJCT #### [facility] [address] [address] ABS EOSINOPHILS 0.0 thou/mm3 Normal 0.0-0.4 [facility] Comment on above: Performed By: #### C ISAMAR, REJCT #### [facility] [address] [place] [address] ABS IMMATURE GRANS (IG) 0.02 thou/mm3 Normal 0.00-0.07 [facility] Comment on above: Performed By: #### C ISAMAR, REJCT #### [facility] [address] [place] [address] ABS LYMPHOCYTES 0.9 thou/mm3 Low 1.0-4.8 [facility] Comment on above: Performed By: #### C ISAMAR, REJCT #### [facility] [address] [place] [address] ABS MONOCYTES 0.5 thou/mm3 Normal 0.4-1.3 [facility] Comment on above: Performed By: #### C ISAMAR, REJCT #### [facility] [address] [place] [address] ABS NEUTROPHILS 4.9 thou/mm3 Normal 1.8-7.7 [facility] Comment on above: Performed By: #### C ISAMAR, REJCT #### [facility] [address] [place] [address] Basophils/100 WBC (Bld) 0.2 % Normal [facility] Comment on above: Performed By: #### C ISAMAR, REJCT #### [facility] [address] [place] [address] Eosinophils/100 WBC (Bld) 0.0 % Normal [facility] Comment on above: Performed By: #### C ISAMAR, REJCT #### [facility] [address] [place] [address] Erythrocyte distribution width (RBC) [Ratio] 13.3 % Normal 11.5-14.5 [facility] Comment on above: Performed By: #### C ISAMAR, REJCT #### [facility] [address] [address] Hematocrit (Bld) [Volume fraction] 29.0 % Low 37.0-47.0 [facility] Comment on above: Performed By: #### C ISAMAR, REJCT #### [facility] [address] [place] [address] Hemoglobin (Bld) [Mass/Vol] 9.9 g/dL Low 12.0-16.0 [facility] Comment on above: Performed By: #### C ISAMAR, REJCT #### [facility] [address] [place] [address] IMMATURE GRANS (IG) 0.3 % Normal [facility] Comment on above: Performed By: #### C ISAMAR, REJCT #### [address] [address] Lymphocytes/100 WBC (Bld) 13.8 % Normal [facility] Comment on above: Performed By: #### C ISAMAR, REJCT #### [address] [address] MCH (RBC) [Entitic mass] 32.8 pg Normal 26.0-33.0 [facility] Comment on above: Performed By: #### C ISAMAR, REJCT #### [facility] [address] [place] [address] MCHC (RBC) [Mass/Vol] 34.1 g/dL Normal 32.2-35.5 [facility] Comment on above: Performed By: #### C ISAMAR, REJCT #### [address] [address] MCV (RBC) [Entitic vol] 96.0 fL Normal 81.0-99.0 [facility] Comment on above: Performed By: #### C ISAMAR, REJCT #### [address] [address] Monocytes/100 WBC (Bld) 8.7 % Normal [facility] Comment on above: Performed By: #### C ISAMAR, REJCT #### [address] [address] Neutrophils/100 WBC (Bld) 77.0 % Normal [facility] Comment on above: Performed By: #### C ISAMAR, REJCT #### [address] [address] NRBC 0 /100 wbc Normal [facility] Comment on above: Performed By: #### C ISAMAR, REJCT #### [facility] [address] [place] [address] PLATELET 185 thou/mm3 Normal 130-400 [facility] Comment on above: Performed By: #### C ISAMAR, REJCT #### [facility] [address] [place] [address] Platelet mean volume (Bld) [Entitic vol] 10.8 fL Normal 9.4-12.4 [facility] Comment on above: Performed By: #### C BCWD, REJCT #### [facility] [address] [place] [address] RBC 3.02 mill/mm3 Low 4.20-5.40 [facility] Comment on above: Performed By: #### C BCWD, REJCT #### [facility] [address] [place] [address] RDW-SD 46.2 fL High 35.0-45.0 [facility] Comment on above: Performed By: #### C BCWD, REJCT #### [facility] [address] [place] [address] WBC 6.3 thou/mm3 Normal 4.8-10.8 [facility] Comment on above: Performed By: #### C BCWD, REJCT #### [facility] [address] [place] [address] EKG 12-LEADon 09-25-2023 EKG 12-LEAD 103 64 [phone] Atrial fibrillation with rapid ventricular response with premature ventricular or aberrantly conducted complexes Septal infarct , age undetermined ST & T wave abnormality, consider inferior ischemia Abnormal ECG No previous ECGs available Confirmed by JOHNIE HACKETT ([id number]) on 09/25/2023 7:28:02 AM [email or web address] [id number]&Date=03-02-20 23&Time=04%3a57%3a15 %3a00&TestType=ECG&S ite=3&OutputType=PDF &Ext=PDF Normal [facility] FLUORO FOR SURGICAL PROCEDUR ESon 09-25-2023 FLUORO FOR SURGICAL PROCEDURES Radiology exam is complete. No Radiologist dictation. Please follow up with ordering provider. Normal [facility] GFR, ESTIMATEDon 09-25-2023 GFR/1.73 sq M.predicted MDRD (S/P/Bld) [Vol rate/Area] mL/min/{1.73_m2} Normal >60 [facility] Comment on above: Result Comment: Pedi atric calculator link https://www.kidney.org/professionals/kdoqi/gfr_calculatorped Effective Aug 24, 2022 These results are not intended for use in patients <18 years of age. eGFR results are calculated without a race factor using the 2020 CKD-EPI equation. Careful clinical correlation is recommended, particularly when comparing to results calculated using previous equations. The CKD-EPI equation is less accurate in patients with extremes of muscle mass, extra-renal metabolism of creatinine, excessive creatine ingestion, or following therapy that affects renal tubular secretion. Performed By: #### A NION, CBCWD, ICAL, EGFR1, BMPX #### [facility] [address] [place] [address] REJECTION NOTIFICATIONon REJECTION: REASON see below Normal [facility] Comment on above: Result Comment: Unab le to perform testing;Specimen was Hemolyzed Performed By: #### C BCWD, REJCT #### [facility] [address] [place] [address] REJECTION: TEST chems Normal [facility] Comment on above: Performed By: #### C BCWD, REJCT #### [facility] [address] [place] [address] Office Visiton 09-14-2023 Follow-up visit [id number] Fatuma Mena 1945 F Date Provider Department Center 09/14/2023 [facility]O [facility]INSON [facility] Family History Problem Relation Age of Onset Heart attack Father Stroke Father Family Status - Relation Status Age at Father Level of Service:68090 ID OFFICE/OUTPATIENT [facility] 60-74 MINUTES Normal [facility] .eGFRon 07-12-2023 Estimated GFR 52 mL/min/1.73m? Low >=60 [facility] Comment on above: Result Comment: [facility] have implemented the eGFR calculation approach that does not have a coefficient for race and that conforms to the NKF-ASN Task Force Recommendations. Stages of Chronic Kidney Disease GFR Stage 3a Mild to moderate loss of kidney function 59 to 45 Stage 3b Moderate to severe loss of kidney function 44 to 33 Stage 4 Severe loss of kidney function 29 to 15 Stage 5 Kidney failure Less than 15 GFR calculated using the CKD-Epi Creatinine Equation (2020): eGFR = 142 X min(SCr/?, 1)? X max(SCr /?, 1)-1.200 X 0.9938Age X 1.012 [if female] Abbreviations/Units: eGFR (estimated glomerular filtration rate) = mL/min/1.73 m2 SCr (standardized serum creatinine) = mg/dL ? = 0.7 (females) or 0.9 (males) ? = -0.241 (females) or -0.302 (males) min = indicates the minimum of SCr/? or 1 max = indicates the maximum of SCr/? or 1 Age = years Performed By: #### E GFR #### [place] [id number] ABO/Rhon 07-12-2023 ABO/Rh SD 08/02/23 ABO/Rh: A POS Normal [facility] Comment on above: Performed By: #### A BORH #### [facility] (DEFAULT) [address] [place] [address] ABSC Autoon 07-12-2023 ABSC Auto Negative Normal [facility] Comment on above: Performed By: #### A SA #### [place] [id number] CBC w/ Diffon 07-12-2023 Erythrocyte distribution width (RBC) [Ratio] 12.8 % Normal 11.6-14.8 [facility] Comment on above: Performed By: #### C BC #### [place] [id number] Hematocrit (Bld) [Volume fraction] 40.7 % Normal 36.0-46.0 [facility] Comment on above: Performed By: #### C BC #### [place] [id number] Hemoglobin (Bld) [Mass/Vol] 14.1 g/dL Normal 12.0-16.0 [facility] Comment on above: Performed By: #### C BC #### [place] [id number] MCH (RBC) [Entitic mass] 34.6 pg Normal 27.0-35.0 [facility] Comment on above: Performed By: #### C BC #### [address] [address] MCHC 34.6 % Normal 31.0-37.0 [facility] Comment on above: Performed By: #### C BC #### [address] [address] MCV (RBC) [Entitic vol] 100.0 fL Normal 80.0-100.0 [facility] Comment on above: Performed By: #### C BC #### [address] [address] Platelet 215 x10*3/mcL Normal 150-450 [facility] Comment on above: Performed By: #### C BC #### [address] [address] Platelet mean volume (Bld) [Entitic vol] 8.4 fL Normal 6.7-10.6 [facility] Comment on above: Performed By: #### C BC #### [address] [address] RBC 4.07 x10*6/mcL Normal 3.80-5.20 [facility] Comment on above: Performed By: #### C BC #### [address] [address] WBC 6.1 x10*3/mcL Normal 4.5-11.0 [facility] Comment on above: Performed By: #### C BC #### [address] [address] CMPon 07-12-2023 Albumin [Mass/Vol] 4.1 g/dL Normal 3.2-4.9 [facility] Comment on above: Performed By: #### C OMP #### [address] [address] Albumin/Globulin [Mass ratio] 1.3 {ratio} Normal 1.1-2.2 [facility] Comment on above: Performed By: #### C OMP #### [address] [place] [address] Alk Phos 37 IU/L Normal 32-91 [facility] Comment on above: Performed By: #### C OMP #### [address] [place] [address] ALT [Catalytic activity/Vol] 17 U/L Normal 14-54 [facility] Comment on above: Performed By: #### C OMP #### [address] [place] [address] Anion gap [Moles/Vol] 8 mmol/L Normal 7-17 [facility] Comment on above: Performed By: #### C OMP #### [address] [address] AST [Catalytic activity/Vol] 23 U/L Normal 15-41 [facility] Comment on above: Performed By: #### C OMP #### [address] [place] [address] Bili Total 0.7 mg/dL Normal 0.3-1.2 [facility] Comment on above: Performed By: #### C OMP #### [address] [place] [address] Calcium [Mass/Vol] 9.6 mg/dL Normal 8.5-10.3 [facility] Comment on above: Performed By: #### C OMP #### [address] [place] [address] Chloride [Moles/Vol] 102 mmol/L Normal 98-110 [facility] Comment on above: Performed By: #### C OMP #### [address] [address] CO2 [Moles/Vol] 31 mmol/L Normal 22-32 [facility] Comment on above: Performed By: #### C OMP #### [address] [address] Creatinine [Mass/Vol] 1.09 mg/dL High 0.44-1.03 [facility] Comment on above: Performed By: #### C OMP #### [address] [address] Glucose [Mass/Vol] 154 mg/dL High 70-99 [facility] Comment on above: Performed By: #### C OMP #### [address] [address] Potassium [Moles/Vol] 3.4 mmol/L Normal 3.4-4.8 [facility] Comment on above: Performed By: #### C OMP #### [address] [address] Protein [Mass/Vol] 7.3 g/dL Normal 6.5-8.1 [facility] Comment on above: Performed By: #### C OMP #### [address] [address] Sodium [Moles/Vol] 138 mmol/L Normal 133-142 [facility] Comment on above: Performed By: #### C OMP #### [address] [address] Urea nitrogen [Mass/Vol] 22 mg/dL Normal 8-26 [facility] Comment on above: Performed By: #### C OMP #### [address] [address] Urea nitrogen/Creatinine [Mass ratio] 20.2 mg/mg High 10.0-20.0 [facility] Comment on above: Performed By: #### C OMP #### [address] [address] Diff Autoon 07-12-2023 Baso Absolute 0.0 x10*3/mcL Normal 0.0-0.2 [facility] Comment on above: Performed By: #### . Automated Diff #### [address] [address] Basophils/100 WBC (Bld) 0.6 % Normal 0.0-1.5 [facility] Comment on above: Performed By: #### . Automated Diff #### [address] [address] Eos Absolute 0.1 x10*3/mcL Normal 0.0-0.4 [facility] Comment on above: Performed By: #### . Automated Diff #### [address] [address] Eosinophils/100 WBC (Bld) 2.3 % Normal 0.0-5.4 [facility] Comment on above: Performed By: #### . Automated Diff #### [address] [address] Lymph Absolute 1.3 x10*3/mcL Normal 1.0-4.8 [facility] Comment on above: Performed By: #### . Automated Diff #### [address] [address] Lymphocytes/100 WBC (Bld) 21.0 % Low 27.2-40.8 [facility] Comment on above: Performed By: #### . Automated Diff #### [address] [address] [place] Absolute 0.6 x10*3/mcL Normal 0.1-1.1 [facility] Comment on above: Performed By: #### . Automated Diff #### [address] [address] Monocytes/100 WBC (Bld) 9.5 % Normal 3.7-11.9 [facility] Comment on above: Performed By: #### . Automated Diff #### [address] [address] Neutro Absolute 4.0 x10*3/mcL Normal 1.8-7.7 [facility] Comment on above: Performed By: #### . Automated Diff #### [address] [address] Neutro Auto 66.6 % Normal 47.2-70.8 [facility] Comment on above: Performed By: #### . Automated Diff #### [address] [address] HbA1c w/Rflx Fructosamineon 07-12-2023 Glucose [Mass/Vol] 148 mg/dL High 68-114 [facility] Comment on above: Result Comment: Math ematical Calc approx. The mean gluc equivalency of A1c Performed By: #### C [id number] #### [place] [address] [place] [address] Hgb A1c 6.8 % A1c High 4.0-5.6 [facility] Comment on above: Result Comment: Refe rence Range: 4.0 - 5.6 % Normal 5.7 - 6.4 % Pre-Diabetes > 6.5 % Diabetes Performed By: #### C [id number] #### [address] [address] T3, TOTAL (TRIIODOTHYRONINE) on 02-11-2023 T3, TOTAL 87 ng/dL Normal 71-180 [facility] Comment on above: Performed By: #### B MP, LIPID, TSH, ALT #### [facility] [address] [place] [address] [address] Bj Jason T3, TOTAL (TRIIODOTHYRONINE) on 02-10-2023 T3, TOTAL (TRIIODOTHYRONINE) 87 ng/dL 71-180 ng/dL [facility] [employer] Other T3, TOTAL (TRIIODOTHYRONINE) see note [employer] [employer] Other Alanine Aminotransferaseon 0 02-08-2023 ALT [Catalytic activity/Vol] 24 U/L Normal 14-59 [employer] [employer] Other Comment on above: Performed By: #### B MP, LIPID, TSH, ALT #### [facility] [address] [place] [address] [address] Bj Jason Alanine Aminotransferase see note [facility] [employer] Other CBC AUTO DIFFon 02-08-2023 BASO # 0.0 103/ul Normal 0.0-0.1 [facility] Comment on above: Performed By: #### B MP, LIPID, TSH, ALT #### [facility] [address] [place] [address] Dr. Bj Jason Basophils/100 WBC (Bld) 0.3 % Normal 0.2-2.0 [facility] Comment on above: Performed By: #### B MP, LIPID, TSH, ALT #### [facility] [address] [place] [address] Dr. Bj Jason EO # 0.1 103/ul Normal 0.0-0.7 [facility] Comment on above: Performed By: #### B MP, LIPID, TSH, ALT #### [facility] [address] [place] [address] Dr. Bj Jason Eosinophils/100 WBC (Bld) 0.6 % Critically low 0.9-7.0 [facility] Comment on above: Performed By: #### B MP, LIPID, TSH, ALT #### [facility] [address] [place] [address] Dr. Bj Jason Erythrocyte distribution width (RBC) [Ratio] 14.3 % Normal 11.0-15.0 [facility] Comment on above: Performed By: #### B MP, LIPID, TSH, ALT #### [facility] [address] [place] [address] Dr. Bj Jason Hematocrit (Bld) [Volume fraction] 43.3 % Normal 36.0-48.0 [facility] Comment on above: Performed By: #### B MP, LIPID, TSH, ALT #### [facility] [address] [place] [address] Dr. Bj Jason Hemoglobin (Bld) [Mass/Vol] 14.2 g/dL Normal 12.0-16.0 [facility] Comment on above: Performed By: #### B MP, LIPID, TSH, ALT #### [facility] [address] [place] [address] Dr. Bj Jason IG # 0.04 10e3/ul Critically high 0.00-0.03 [facility] Comment on above: Performed By: #### B MP, LIPID, TSH, ALT #### [facility] [address] [place] [address] Dr. Bj Jason IG % 0.3 % Normal 0.0-0.5 [facility] Comment on above: Performed By: #### B MP, LIPID, TSH, ALT #### [facility] [address] [place] [address] Dr. Bj Jason LYMPH # 1.7 103/ul Normal 1.2-3.8 [facility] Comment on above: Performed By: #### B MP, LIPID, TSH, ALT #### [facility] [address] [place] [address] Dr. Bj Jason Lymphocytes/100 WBC (Bld) 15.0 % Critically low 20.5-60.0 [facility] Comment on above: Performed By: #### B MP, LIPID, TSH, ALT #### [facility] [address] [place] [address] Dr. Bj Jason MANUAL DIFF REQ NO Normal [facility] Comment on above: Performed By: #### B MP, LIPID, TSH, ALT #### [facility] [address] [place] [address] Dr. Bj Jason MCH (RBC) [Entitic mass] 32.1 pg Normal 26.7-34.0 [facility] Comment on above: Performed By: #### B MP, LIPID, TSH, ALT #### [facility] [address] [place] [address] Dr. Bj Jason MCHC (RBC) [Mass/Vol] 32.8 g/dL Normal 29.9-35.2 [facility] Comment on above: Performed By: #### B MP, LIPID, TSH, ALT #### [facility] [address] [place] [address] Dr. Bj Jason MCV (RBC) [Entitic vol] 98.0 fL Normal 81.0-99.0 [facility] Comment on above: Performed By: #### B MP, LIPID, TSH, ALT #### [facility] [address] [place] [address] Dr. Bj Jason MONO # 1.0 103/ul Critically high 0.3-0.8 [facility] [facility] Comment on above: Performed By: #### B MP, LIPID, TSH, ALT #### [facility] [address] [address] [address] Bj Jason Monocytes/100 WBC (Bld) 8.8 % Normal 1.7-12.0 [facility] Comment on above: Performed By: #### B MP, LIPID, TSH, ALT #### [facility] [address] [place] [address] Dr. Bj Jason NEUT # 8.6 103/ul Critically high 1.4-6.5 [facility] Comment on above: Performed By: #### B MP, LIPID, TSH, ALT #### [facility] [address] [place] [address] Dr. Bj Jason Neutrophils/100 WBC (Bld) 75.0 % Normal 43.0-75.0 [facility] Comment on above: Performed By: #### B MP, LIPID, TSH, ALT #### [facility] [address] [place] [address] Dr. Bj Jason Platelet mean volume (Bld) [Entitic vol] 9.4 fL Critically low 9.5-13.5 [facility] Comment on above: Performed By: #### B MP, LIPID, TSH, ALT #### [facility] [address] [place] [address] Dr. Bj Jason PLT 216 103/ul Normal 150-450 [facility] Comment on above: Performed By: #### B MP, LIPID, TSH, ALT #### [facility] [address] [place] [address] Dr. Bj Jason RBC 4.42 106/ul Normal 4.20-5.40 [facility] Comment on above: Performed By: #### B MP, LIPID, TSH, ALT #### [facility] [address] [place] [address] Dr. Bj Jason WBC 11.5 103/ul Critically high 4.0-11.0 The [facility] Comment on above: Performed By: #### B MP, LIPID, TSH, ALT #### [facility] [address] [address] [address] Bj Jason FREE T4on 02-08-2023 Free T4 [Mass/Vol] 0.88 ng/dL Normal 0.76-1.46 [facility] Comment on above: Performed By: #### F T4 #### [facility] [address] [place] [address] Dr. Bj Jason Free T4 (Free Thyroxine)on 0 02-08-2023 Free T4 (Free Thyroxine) [employer] Other GLYCOHEMOGLOBIN A1Con 2022 ADA RECOMMENDATION SEE BELOW Normal [facility] Comment on above: Result Comment: ADA RECOMMENDED LIMIT 4.0 - 6.0 ADA THERAPEUTIC TARGET < 7.0 ACTION SUGGESTED > 7.0 Performed By: #### B MP, LIPID, TSH, ALT #### [facility] [address] [place] [address] Dr. Bj Jason Glucose [Mass/Vol] 146 mg/dL Normal [facility] Comment on above: Performed By: #### B MP, LIPID, TSH, ALT #### [facility] [address] [place] [address] Dr. Bj Jason HbA1c (Bld) [Mass fraction] 6.7 % Critically high 4.5-6.2 [facility] Comment on above: Performed By: #### B MP, LIPID, TSH, ALT #### [facility] [address] [place] [address] Dr. Bj Jason LIPID PROFILEon 02-08-2023 CHOL-HDL RATIO NORM SEE BELOW Normal [facility] Comment on above: Result Comment: 3.3 - 4.4 LOW RISK 4.4 - 7.1 AVERAGE RISK 7.1 - 11.0 MODERATE RISK >11.0 HIGH RISK Performed By: #### B MP, LIPID, TSH, ALT #### [facility] [address] [place] [address] Dr. Bj Jason Cholesterol [Mass/Vol] 155 mg/dL Normal <=200 [facility] Comment on above: Performed By: #### B MP, LIPID, TSH, ALT #### [facility] [address] [address] [address] Bj Jason Cholesterol in HDL [Mass/Vol] 49 mg/dL Normal 40-60 [facility] Comment on above: Performed By: #### B MP, LIPID, TSH, ALT #### [facility] [address] [address] [address] Bj Jason Cholesterol in LDL [Mass/Vol] 79.0 mg/dL Normal [facility] Comment on above: Performed By: #### B MP, LIPID, TSH, ALT #### [facility] [address] [address] [address] Bj Jason Cholesterol.total/Chol esterol in HDL [Mass ratio] 3.2 {ratio} Normal [facility] Comment on above: Performed By: #### B MP, LIPID, TSH, ALT #### [facility] [address] [address] [address] Bj Jason HDL NORMAL > or = 60 mg/dl - LOW CARDIOVASCULAR RISK <40 mg/dl - HIGH CARDIOVASCULAR RISK Normal [facility] Comment on above: Performed By: #### B MP, LIPID, TSH, ALT #### [facility] [address] [address] [address] Bj aJson LDL CALC NORMAL SEE BELOW Normal [facility] Comment on above: Result Comment: <100 mg/dl OPTIMAL 100 - 129 mg/dl NEAR OR ABOVE OPTIMAL 130 - 159 mg/dl BORDERLINE HIGH 160 - 189 mg/dl HIGH >190 mg/dl VERY HIGH Performed By: #### B MP, LIPID, TSH, ALT #### [facility] [address] [address] [address] Bj Jason Triglyceride [Mass/Vol] 135 mg/dL Normal <=150 [facility] Comment on above: Performed By: #### B MP, LIPID, TSH, ALT #### [facility] [address] [address] [address] Bj Jason VLDL CALC 27.0 mg/dL Normal [facility] Comment on above: Performed By: #### B MP, LIPID, TSH, ALT #### [facility] [address] [address] [address] Bj Jason MICROALBUMIN, RAND URon 03-2 mALB <1.3 Normal <=30.0 [facility] Comment on above: Performed By: #### M ALBR #### [facility] [address] [address] [address] Bj Jason PROF CHEM 8 (BAS METB)on Anion gap [Moles/Vol] 10.8 mmol/L Normal Th [facility] Comment on above: Performed By: #### B MP, LIPID, TSH, ALT #### [facility] [address] [address] [address] Bj Jason Calcium [Mass/Vol] 9.6 mg/dL Normal 8.5-10.1 [facility] Comment on above: Performed By: #### B MP, LIPID, TSH, ALT #### [facility] [address] [address] [address] Bj Jason Chloride [Moles/Vol] 101 mmol/L Normal 98-107 [facility] Comment on above: Performed By: #### B MP, LIPID, TSH, ALT #### [facility] [address] [address] [address] Bj Jason CO2 [Moles/Vol] 31.8 mmol/L Normal 21.0-32.0 [facility] Comment on above: Performed By: #### B MP, LIPID, TSH, ALT #### [facility] [address] [address] [address] Bj Jason Creatinine [Mass/Vol] 1.20 mg/dL Critically high 0.55-1.02 [facility] Comment on above: Performed By: #### B MP, LIPID, TSH, ALT #### [facility] [address] [address] [address] Bj Jason EGFR-AF VINCENTIAN 53 mL/min/1.73m2 Critically low >=60 [facility] Comment on above: Performed By: #### B MP, LIPID, TSH, ALT #### [facility] [address] [address] [address] Bj Jason EGFR-NON AF VINCENTIAN 43 mL/min/1.73m2 Critically low >=60 [facility] Comment on above: Performed By: #### B MP, LIPID, TSH, ALT #### [facility] [address] [address] [address] Bj Jason Glucose [Mass/Vol] 124 mg/dL Critically high 74-106 T [facility] Comment on above: Performed By: #### B MP, LIPID, TSH, ALT #### [facility] [address] [address] [address] Bj Jason Potassium [Moles/Vol] 3.6 mmol/L Normal 3.5-5.1 [facility] Comment on above: Performed By: #### B MP, LIPID, TSH, ALT #### [facility] [address] [address] [address] Bj Jason Sodium [Moles/Vol] 140 mmol/L Normal 136-145 [facility] Comment on above: Performed By: #### B MP, LIPID, TSH, ALT #### [facility] [address] [place] [address] Dr. Bj Jason Urea nitrogen [Mass/Vol] 27.0 mg/dL Critically high 7.0-18.0 [facility] Comment on above: Performed By: #### B MP, LIPID, TSH, ALT #### [facility] [address] [place] [address] Dr. Bj Jason Urea nitrogen/Creatinine [Mass ratio] 22.5 mg/mg Normal [facility] Comment on above: Performed By: #### B MP, LIPID, TSH, ALT #### [facility] [address] [place] [address] Dr. Bj Jason TSHon 02-08-2023 TSH 0.018 uIU/mL Critically low 0.358-3.740 [facility] Comment on above: Performed By: #### B MP, LIPID, TSH, ALT #### [facility] [address] [place] [address] Dr. Bj Jason XR HIP RT 2 3V W PELVISon XR HIP RT 2 3V W PELVIS EXAM: AP of the pelvis and right hip HISTORY: . Pain in right hip joint area COMPARISON: None. TECHNIQUE: 3 views FINDINGS: Bony pelvis is intact. Osteitis pubis of the pubic symphysis is noted. There is narrowing of both hip joints. Spurs are noted involving both femoral heads as well as the acetabulum. Surrounding soft tissues are unremarkable. Impression: 1. Osteitis pubis. 2. Mild arthritic changes of both hips. If symptoms persist involving the right hip MRI is suggested for further evaluation. Electronically authenticated by: JENELLE ACEVES Date: 2023-01-26 17:37 Normal [facility] XR HIP RT 2 3V W PELVIS [employer] Other MG MAMM SCREEN 3D LILLIAN CADon 01-08-2023 MG MAMM SCREEN 3D LILLIAN CAD Patient: FATUMA MENA Exam Date: 01/08/2023 : 1945 Gender:F Ordering : DR HARSHA ARRIETA D.O. Admission #: [id number] Family : DR JUN MARTÍNEZ . Order #: [id number] CLICK HERE TO VIEW EXAM RADIOLOGY REPORT PROCEDURE: MAMMOGRAM SCREENING 3D BILATERAL CAD COMPARISON: MG MAMM SCREEN 3D LILLIAN CAD, 01/07/2022. MG MAMM SCREEN LILLIAN W CAD, 01/02/2021. MG MAMM SCREEN LILLIAN W CAD, 12/15/2019. DIGITIZED_MAMMO, 04/10/2008. INDICATIONS: Screening mammography Calculator Name NCI Breast Cancer Risk Assessment Tool 5 Year Breast Cancer Risk n/a% Lifetime Breast Cancer Risk n/a% Personal Breast Cancer Yes, 56 Personal Ovarian Cancer No Treatments Left -Lumpectomy, Radiation therapy, Tamoxifen x 5 years Family Cancers Aunt-paternal with breast cancer at age 60. LOCATION: [facility] BREAST COMPOSITION: Heterogeneously dense,which may obscure small masses. FINDINGS: DIAGNOSTIC CATEGORY 2--BENIGN FINDING: RIGHT BREAST: No significant suspicious finding. Scattered benign-appearing calcifications are present. Scattered benign-appearing lymph nodes are present. No significant change has occurred. LEFT BREAST: No significant suspicious finding. Scattered benign-appearing calcifications are present. No significant change has occurred. RECOMMENDATIONS: ROUTINE MAMMOGRAM AND CLINICAL EVALUATION IN 12 MONTHS. PLEASE NOTE: A NORMAL MAMMOGRAM DOES NOT EXCLUDE THE POSSIBILITY OF BREAST CANCER. A CLINICALLY SUSPICIOUS PALPABLE LUMP SHOULD BE BIOPSIED. Dictated by: Ching Dangelo M.D. on 01/12/2023 at 14:40 Approved by: Ching Dangelo M.D. on 01/12/2023 at 14:52 Normal [facility] CALCIUMon 12-11-2022 Calcium [Mass/Vol] 9.5 mg/dL Normal 8.5-10.1 [facility] Comment on above: Performed By: #### B MP, LIPID, TSH, ALT #### [facility] [address] [address] [address] Bj Jason CREATININEon 12-11-2022 Creatinine [Mass/Vol] 1.06 mg/dL Critically high 0.55-1.02 [facility] Comment on above: Performed By: #### B MP, LIPID, TSH, ALT #### [facility] [address] [address] [address] Bj Jason EGFR-AF VINCENTIAN >60 Normal >=60 [facility] Comment on above: Performed By: #### B MP, LIPID, TSH, ALT #### [facility] [address] [address] [address] Bj Jason EGFR-NON AF VINCENTIAN 50 mL/min/1.73m2 Critically low >=60 [facility] Comment on above: Performed By: #### B MP, LIPID, TSH, ALT #### [facility] [address] [address] [address] Bj Jason GLYCOHEMOGLOBIN A1Con 2021 ADA RECOMMENDATION SEE BELOW Normal [facility] Comment on above: Result Comment: ADA RECOMMENDED LIMIT 4.0 - 6.0 ADA THERAPEUTIC TARGET < 7.0 ACTION SUGGESTED > 7.0 Performed By: #### B MP, LIPID, TSH, ALT #### [facility] [address] [address] [address] Bj Jason Glucose [Mass/Vol] 160 mg/dL Normal [facility] Comment on above: Performed By: #### B MP, LIPID, TSH, ALT #### [facility] [address] [address] [address] Bj Jason HbA1c (Bld) [Mass fraction] 7.2 % Critically high 4.5-6.2 [facility] Comment on above: Performed By: #### B MP, LIPID, TSH, ALT #### [facility] [address] [address] [address] Bj Jason TSHon 09-30-2022 TSH 1.819 uIU/mL Normal 0.358-3.740 The [facility] Comment on above: Performed By: #### T SH #### [facility] [address] [address] [address] Bj Jason CALCIUMon 08-07-2022 Calcium [Mass/Vol] 9.2 mg/dL Normal 8.5-10.1 [facility] Comment on above: Performed By: #### B MP, LIPID, TSH, ALT #### [facility] [address] [place] [address] Dr. Bj Jason CREATININEon 08-07-2022 Creatinine [Mass/Vol] 1.12 mg/dL Critically high 0.55-1.02 [facility] Comment on above: Performed By: #### B MP, LIPID, TSH, ALT #### [facility] [address] [address] [address] Bj Jason EGFR-AF VINCENTIAN 57 mL/min/1.73m2 Critically low >=60 [facility] Comment on above: Performed By: #### B MP, LIPID, TSH, ALT #### [facility] [address] [address] [address] Bj Jason EGFR-NON AF VINCENTIAN 47 mL/min/1.73m2 Critically low >=60 [facility] Comment on above: Performed By: #### B MP, LIPID, TSH, ALT #### [facility] [address] [address] [address] Bj Jason GLYCOHEMOGLOBIN A1Con 2021 ADA RECOMMENDATION SEE BELOW Normal [facility] Comment on above: Result Comment: ADA RECOMMENDED LIMIT 4.0 - 6.0 ADA THERAPEUTIC TARGET < 7.0 ACTION SUGGESTED > 7.0 Performed By: #### A 1C #### [facility] [address] [place] [address] Dr. Bj Jason Glucose [Mass/Vol] 146 mg/dL Normal [facility] Comment on above: Performed By: #### A 1C #### [facility] [address] [address] [address] Bj Jason HbA1c (Bld) [Mass fraction] 6.7 % Critically high 4.5-6.2 [facility] Comment on above: Performed By: #### A 1C #### [facility] [id number] Bj Jason ECHOCARDIO M/2D COMPLETEon 0 05-12-2022 ECHOCARDIO M/2D COMPLETE Patient: FATUMA MENA Exam Date: 05/12/2022 : 1945 Gender:F Ordering : DR HARSHA ARRIETA D.O. Admission #: [id number] Family : Order #: [id number] CLICK HERE TO VIEW EXAM ECHOCARDIOGRAM REPORT PROCEDURE: CARDIO PULMONARY ECHOCARDIO M/2D COMP INDICATIONS: WANG COMPARISON: None. DESCRIPTION: COMPLETE ECHOCARDIOGRAM Real-time transthoracic echocardiography with 2D, M-mode, spectral and color flow Doppler performed. QUALITY: Technical quality was good. LEFT VENTRICLE: Normal chamber size. Proximal septal hypertrophy (sigmoid septum). Global left ventricular systolic function is hyperdynamic. No significant left ventricular outflow obstruction is seen. LV EF: Visual estimation of left ventricular ejection fraction is 70-75%. DIASTOLIC: Grade I diastolic dysfunction. ATRIAL SEPTUM: LEFT ATRIUM: Moderate dilatation. RIGHT ATRIUM: Normal chamber size. RIGHT VENTRICLE: Normal chamber size. Normal right ventricular systolic function. TRICUSPID VALVE: Normal mobility and thickness. No stenosis with trivial regurgitation. No evidence of pulmonary hypertension. RVSP 30 mmHg. MITRAL VALVE: Normal mobility and thickness. No mitral valve prolapse. No evidence of mitral valve stenosis. Mitral annular calcification. Trivial mitral regurgitation. AORTIC VALVE: Normal trileaflet appearance. No visible sclerosis. Normal leaflet mobility. No evidence of aortic valve stenosis. Mild aortic regurgitation. AORTIC ROOT: Normal diameter and appearance. PULMONIC VALVE: Normal thickness and mobility. No stenosis. Trivial regurgitation. PERICARDIUM: No evidence of pericardial effusion. IVC: Collapses with inspirations. Normal size. PLEURA: CONCLUSION: 1. The left ventricle is normal in size with proximal septal hypertrophy. Systolic function is hyperdynamic. LVEF is 70 to 75%. There is no significant left ventricular outflow tract obstruction. 2. Normal right ventricular systolic function. 3. Mild diastolic dysfunction. 4. Moderate left atrial dilatation. 5. Mild aortic regurgitation. 6. More right-sided pressures. Adult Echocardiography Procedure Report Left Ventricle LVEDD (3.7 - 5.6 cm): 4.03 cm LVESD (2.2 - 4.0 cm): 2.65 cm LVIVS thickness (0.6 - 1.2 cm): 1.13 cm LVPW thickness (0.5 - 1.0 cm): 1.13 cm e': 5.92 cm/s E - e': 15.50 LVOT Area (cm2): 2.54 cm2 LVOT Diameter 1.80 cm Left Ventricular Ejection Fraction: 70-75 % Left Atrium LA Volume Index (2D A2C): 26.70 ml/m2 Left Atrium Systolic Dimension: 3.60 cm Left Atrium Systolic Area(A2C): 18.70 cm2 Left Atrium Systolic Area(A4C): 19.80 cm2 Left Atrium Systolic Volume(A2C): 48780 mm3 Left Atrium Systolic Volume(A4C): 82458 mm3 Mitral Valve MV E to A Ratio: 0.80 Deceleration Yolo: 3840 mm/s2 Mitral Valve A-Wave Peak Velocity: 121.00 cm/s Mitral Valve E-Wave Peak Velocity: 91.80 cm/s Right Ventricle RV Internal Diastolic Dimension: 2.95 cm Aorta AO Root Diam: 3.00 cm Aortic Valve AoV Area (Peak César): 2.18 cm2 Deceleration Yolo: 1410 mm/s2 Pressure Half-Time: 736 ms Peak Velocity: 352.00 cm/s Peak Gradient: 50 mm[Hg] Aortic Valve Cusp Separation: 2.10 cm Peak Velocity(Antegrade Flow): 149.00 cm/s Peak Gradient(Antegrade Flow): 9 mm[Hg] Tricuspid Valve Peak Velocity (Regurgitant Flow): 179.00 cm/s, 238.00 cm/s Pulmonic Valve Peak Velocity: 95.70 cm/s Peak Gradient: 4 mm[Hg] Right Atrium Dictated by: Elkin Light M.D. on 05/13/2022 at 19:21 Approved by: Elkin Light M.D. on 05/13/2022 at 19:26 Normal [facility] XR TSPINE 2 VIEWSon 05-05-20 22 XR TSPINE 2 VIEWS EXAMINATION: XR TSPINE 2 VIEWS HISTORY: Pain in thoracic spine without injury; chest pain with inspiration COMPARISON: No relevant comparison available. FINDINGS: BONES: Slight left convex curvature of the upper thoracic spine and right convex curvature of the mid and lower thoracic spine. No significant spondylosis, fracture, or visible bony lesion. DISC SPACES: Mild degenerative changes within the midthoracic spine. PARASPINOUS: Negative. No paraspinous abnormality is seen. OTHER: Negative. IMPRESSION: 1. No acute bone abnormality or appreciable bone lesion. 2. Mild S-shaped curvature of the thoracic spine which may be age related. 3. Minimal degenerative disc disease. Electronically authenticated by: CHING DANGELO Date: 2022-05-05 13:09 Normal [facility] XR CHEST 2 Von 05-04-2022 XR CHEST 2 V EXAM: XR CHEST 2 V HISTORY: Dyspnea and chest pain with inspiration. COMPARISON: None. TECHNIQUE: PA and lateral chest x-ray FINDINGS: The heart is not enlarged and the vasculature is not distended. No acute infiltrate, effusion or pneumothorax is identified. Diffuse osteopenia is noted with mild degenerative changes in the spine. IMPRESSION: No acute infiltrate or evidence of cardiac decompensation. Comparison with a previous study may be helpful. Electronically authenticated by: SAMARA FELTON Date: 2022-05-04 14:58 Normal [facility] XR LSPINE 2_3 VIEWSon 2021 XR LSPINE 2_3 VIEWS EXAM: XR LSPINE 2_3 VIEWS HISTORY: Low back pain Lumbar spine examination CLINICAL HISTORY: Back pain COMPARISON: None FINDINGS: Lumbar spine examination shows posterior elements are intact. Anterolisthesis of L4 on L5 and L5-S1 noted. Endplate osteophytes and facet hypertrophic changes are seen which are consistent with degenerative joint disease. No focal lesions are identified. IMPRESSION: Moderate lumbar degenerative changes Electronically authenticated by: KEERTHI RAMIREZ Date: 2022-05-04 21:52 Normal [facility] CBC AUTO DIFFon 04-29-2022 BASO # 0.1 103/ul Normal 0.0-0.1 [facility] Comment on above: Performed By: #### C BC #### [facility] [address] [place] [address] Dr. Bj Jason Basophils/100 WBC (Bld) 0.9 % Normal 0.2-2.0 [facility] Comment on above: Performed By: #### C BC #### [facility] [address] [place] [address] Dr. Bj Jason EO # 0.2 103/ul Normal 0.0-0.7 [facility] Comment on above: Performed By: #### C BC #### [facility] [address] [place] [address] Dr. Bj Jason Eosinophils/100 WBC (Bld) 2.4 % Normal 0.9-7.0 [facility] Comment on above: Performed By: #### C BC #### [facility] [address] [place] [address] Dr. Bj Jason Erythrocyte distribution width (RBC) [Ratio] 12.7 % Normal 11.0-15.0 [facility] Comment on above: Performed By: #### C BC #### [facility] [address] [place] [address] Dr. Bj Jason Hematocrit (Bld) [Volume fraction] 41.7 % Normal 36.0-48.0 [facility] Comment on above: Performed By: #### C BC #### [facility] [address] [place] [address] Dr. Bj Jason Hemoglobin (Bld) [Mass/Vol] 14.0 g/dL Normal 12.0-16.0 [facility] Comment on above: Performed By: #### C BC #### [facility] [address] [place] [address] Dr. Bj Jason IG # 0.02 10e3/ul Normal 0.00-0.03 [facility] Comment on above: Performed By: #### C BC #### [facility] [address] [place] [address] Dr. Bj Jason IG % 0.3 % Normal 0.0-0.5 [facility] Comment on above: Performed By: #### C BC #### [facility] [address] [place] [address] Dr. Bj Jason LYMPH # 1.6 103/ul Normal 1.2-3.8 [facility] Comment on above: Performed By: #### C BC #### [facility] [address] [place] [address] Dr. Bj Jason Lymphocytes/100 WBC (Bld) 20.6 % Normal 20.5-60.0 [facility] Comment on above: Performed By: #### C BC #### [facility] [address] [place] [address] Dr. Bj Jason MANUAL DIFF REQ NO Normal [facility] Comment on above: Performed By: #### C BC #### [facility] [address] [place] [address] Dr. Bj Jason MCH (RBC) [Entitic mass] 31.3 pg Normal 26.7-34.0 [facility] Comment on above: Performed By: #### C BC #### [facility] [address] [place] [address] Dr. Bj Jason MCHC (RBC) [Mass/Vol] 33.6 g/dL Normal 29.9-35.2 [facility] Comment on above: Performed By: #### C BC #### [facility] [address] [place] [address] Dr. Bj Jason MCV (RBC) [Entitic vol] 93.3 fL Normal 81.0-99.0 [facility] Comment on above: Performed By: #### C BC #### [facility] [address] [place] [address] Dr. Bj Jason MONO # 0.7 103/ul Normal 0.3-0.8 [facility] Comment on above: Performed By: #### C BC #### [facility] [address] [place] [address] Dr. Bj Jason Monocytes/100 WBC (Bld) 9.3 % Normal 1.7-12.0 [facility] Comment on above: Performed By: #### C BC #### [facility] [address] [place] [address] Dr. Bj Jason NEUT # 5.2 103/ul Normal 1.4-6.5 [facility] Comment on above: Performed By: #### C BC #### [facility] [address] [place] [address] Dr. Bj Jason Neutrophils/100 WBC (Bld) 66.5 % Normal 43.0-75.0 [facility] Comment on above: Performed By: #### C BC #### [facility] [address] [place] [address] Dr. Bj Jason Platelet mean volume (Bld) [Entitic vol] 10.9 fL Normal 9.5-13.5 [facility] Comment on above: Performed By: #### C BC #### [facility] [address] [place] [address] Dr. Bj Jason PLT 223 103/ul Normal 150-450 [facility] Comment on above: Performed By: #### C BC #### [facility] [address] [place] [address] Dr. Bj Jason RBC 4.47 106/ul Normal 4.20-5.40 [facility] Comment on above: Performed By: #### C BC #### [facility] [address] [place] [address] Dr. Bj Jason WBC 7.9 103/ul Normal 4.0-11.0 [facility] Comment on above: Performed By: #### C BC #### [facility] [address] [place] [address] Dr. Bj Jason PROF CHEM 8 (BAS METB)on Anion gap [Moles/Vol] 12.0 mmol/L Normal [facility] Comment on above: Performed By: #### B MP, LIPID, TSH, ALT #### [facility] [address] [place] [address] Dr. Bj Jason Calcium [Mass/Vol] 9.5 mg/dL Normal 8.5-10.1 [facility] Comment on above: Performed By: #### B MP, LIPID, TSH, ALT #### [facility] [address] [place] [address] Dr. Bj Jason Chloride [Moles/Vol] 101 mmol/L Normal 98-107 [facility] Comment on above: Performed By: #### B MP, LIPID, TSH, ALT #### [facility] [address] [address] [address] Bj Jason CO2 [Moles/Vol] 29.9 mmol/L Normal 21.0-32.0 [facility] Comment on above: Performed By: #### B MP, LIPID, TSH, ALT #### [facility] [address] [address] [address] Bj Jason Creatinine [Mass/Vol] 1.12 mg/dL Critically high 0.55-1.02 [facility] Comment on above: Performed By: #### B MP, LIPID, TSH, ALT #### [facility] [address] [address] [address] Bj Jason EGFR-AF VINCENTIAN 57 mL/min/1.73m2 Critically low >=60 [facility] Comment on above: Performed By: #### B MP, LIPID, TSH, ALT #### [facility] [address] [address] [address] Bj Jason EGFR-NON AF VINCENTIAN 47 mL/min/1.73m2 Critically low >=60 [facility] Comment on above: Performed By: #### B MP, LIPID, TSH, ALT #### [facility] [address] [address] [address] Bj Jason Glucose [Mass/Vol] 106 mg/dL Normal 74-106 [facility] Comment on above: Performed By: #### B MP, LIPID, TSH, ALT #### [facility] [address] [address] [address] Bj Jason Potassium [Moles/Vol] 3.9 mmol/L Normal 3.5-5.1 [facility] Comment on above: Performed By: #### B MP, LIPID, TSH, ALT #### [facility] [address] [address] [address] Bj Jason Sodium [Moles/Vol] 139 mmol/L Normal 136-145 [facility] Comment on above: Performed By: #### B MP, LIPID, TSH, ALT #### [facility] [address] [address] [address] Bj Jason Urea nitrogen [Mass/Vol] 25.0 mg/dL Critically high 7.0-18.0 [facility] Comment on above: Performed By: #### B MP, LIPID, TSH, ALT #### [facility] [address] [address] [address] Bj Jason Urea nitrogen/Creatinine [Mass ratio] 22.3 mg/mg Normal [facility] Comment on above: Performed By: #### B MP, LIPID, TSH, ALT #### [facility] [address] [address] [address] Bj Jason TSHon 04-29-2022 TSH 2.953 uIU/mL Normal 0.358-3.740 [facility] Comment on above: Performed By: #### B MP, LIPID, TSH, ALT #### [facility] [address] [address] [address] Bj Jason TSH RANGE SEE BELOW Normal [facility] Comment on above: Result Comment: <0.3 4 UIU/ml HYPERTHYROID 0.34-5.60 UIU/ml EUTHYROID >5.60 UIU/ml HYPOTHYROID Performed By: #### B MP, LIPID, TSH, ALT #### [facility] [address] [place] [address] Dr. Bj Jason GLYCOHEMOGLOBIN A1Con 2021 ADA RECOMMENDATION ADA THERAPEUTIC TARGET 6.0 - 7.0 ACTION SUGGESTED > 7.0 Normal [facility] Comment on above: Performed By: #### B MP, LIPID, TSH, ALT #### [facility] [address] [address] [address] Bj Jason Glucose [Mass/Vol] 148 mg/dL Normal [facility] Comment on above: Performed By: #### B MP, LIPID, TSH, ALT #### [facility] [address] [address] [address] Bj Jason HbA1c (Bld) [Mass fraction] 6.8 % Critically high <=6.0 [facility] Comment on above: Performed By: #### B MP, LIPID, TSH, ALT #### [facility] [address] [place] [address] Dr. Bj Jason MICROALBUMIN, RAND URon 04- mALB <1.3 Normal <=30.0 [facility] Comment on above: Performed By: #### M ALBR #### [facility] [address] [place] [address] Dr. Bj Jason Vital Signs Date Time Vital Sign Value Performing Clinician Facility 01-03-2025 14:28-0500 Body height 162.56 cm [facility] 01-03-2025 [id number] Body mass index (BMI) [Ratio] 25.2 kg/m2 [facility] 01-03-2025 [id number] Body weight 66.76 kg [facility] 01-03-2025 14:28-0500 Diastolic blood pressure 72 mm[Hg] [facility] 01-03-2025 14:28-0500 Heart rate 74 /min [facility] 01-03-2025 14:28-0500 SaO2% (BldA) [Mass fraction] 99 % [facility] 01-03-2025 14:28-0500 Systolic blood pressure 174 mm[Hg] [facility] 10-16-2024 14:18-0500 Body height 162.56 cm [facility] 10-16-2024 14:18-0500 Body mass index (BMI) [Ratio] 26.3 kg/m2 [facility] 10-16-2024 14:18-0500 Body weight 69.51 kg [facility] 10-16-2024 14:18-0500 Diastolic blood pressure 62 mm[Hg] [facility] 10-16-2024 14:18-0500 Heart rate 62 /min [facility] 10-16-2024 14:18-0500 Respiratory rate 12 /min [facility] 10-16-2024 14:18-0500 Systolic blood pressure 132 mm[Hg] [facility] 07-18-2024 14:01-0400 Body height 162.56 cm [facility] 07-18-2024 14:01-0400 Body mass index (BMI) [Ratio] 26.9 kg/m2 [facility] 07-18-2024 14:01-0400 Body weight 71.21 kg [facility] 07-18-2024 14:01-0400 Diastolic blood pressure 68 mm[Hg] [facility] 07-18-2024 14:01-0400 Heart rate 73 /min [facility] 07-18-2024 14:01-0400 Respiratory rate 12 /min [facility] 07-18-2024 14:01-0400 Systolic blood pressure 112 mm[Hg] [facility] 05-16-2024 15:05-0400 Body temperature 98.2 [degF] Tutu Kubitz DPM Work Phone: [facility] 05-16-2024 15:05-0400 Diastolic blood pressure 60 mm[Hg] Tutu Kubitz DPM Work Phone: [facility] 05-16-2024 15:05-0400 Heart rate 61 /min Tutu Kubitz DPM Work Phone: [facility] 05-16-2024 15:05-0400 Systolic blood pressure 133 mm[Hg] Tutu Kubitz DPM Work Phone: [facility] 04-13-2024 11:08-0400 Body height 162.56 cm [facility] 04-13-2024 11:08-0400 Body mass index (BMI) [Ratio] 27.6 kg/m2 [facility] 04-13-2024 11:08-0400 Body weight 73.08 kg [facility] 04-13-2024 11:08-0400 Diastolic blood pressure 76 mm[Hg] [facility] 04-13-2024 11:08-0400 Heart rate 72 /min [facility] 04-13-2024 11:08-0400 Respiratory rate 12 /min [facility] 04-13-2024 11:08-0400 Systolic blood pressure 118 mm[Hg] [facility] 02-14-2024 13:54-0400 Body height 162.56 cm [facility] 02-14-2024 13:54-0400 Body mass index (BMI) [Ratio] 27.9 kg/m2 [facility] 02-14-2024 13:54-0400 Body weight 73.93 kg [facility] 02-14-2024 13:54-0400 Diastolic blood pressure 82 mm[Hg] [facility] 02-14-2024 13:54-0400 Heart rate 65 /min [facility] 02-14-2024 13:54-0400 Respiratory rate 12 /min [facility] 02-14-2024 13:54-0400 Systolic blood pressure 132 mm[Hg] [facility] 11-25-2023 09:30-0500 Body height 162.56 cm Harsha Ball Other [facility] 11-25-2023 09:30-0500 Body mass index (BMI) [Ratio] 26.57 kg/m2 Harsha Ball Other [facility] [employer] Other 11-25-2023 09:30-0500 Body weight 70.22 kg Harsha Ball Other [facility] [employer] Other 11-25-2023 09:30-0500 Body weight 70.21 kg [facility] 11-25-2023 09:30-0500 Diastolic blood pressure 71 mm[Hg] Harsha Ball Other [facility] 11-25-2023 09:30-0500 Respiratory rate 12 /min Harsha Ball Other [facility] [employer] Other 11-25-2023 09:30-0500 Systolic blood pressure 129 mm[Hg] Harsha Ball Other [facility] 07-19-2023 10:00-0400 Body height 162.56 cm Harsha Ball Other [facility] [employer] Other 07-19-2023 10:00-0400 Body mass index (BMI) [Ratio] 27.36 kg/m2 Harsha Ball Other [employer] Other 07-19-2023 10:00-0400 Body weight 72.3 kg Harsha Ball Other [employer] Other 07-19-2023 10:00-0400 Diastolic blood pressure 82 mm[Hg] Harsha Ball Other [employer] Other 07-19-2023 10:00-0400 Respiratory rate 12 /min Harsha Ball Other [employer] Other 07-19-2023 10:00-0400 Systolic blood pressure 118 mm[Hg] Harsha Ball Other [employer] Other 05-11-2023 14:30-0400 Body height 162.56 cm Harsha Ball Other [employer] Other 05-11-2023 14:30-0400 Body mass index (BMI) [Ratio] 27.46 kg/m2 Harsha Ball Other [employer] Other 05-11-2023 14:30-0400 Body weight 72.58 kg Harsha Ball Other [employer] Other 05-11-2023 14:30-0400 Diastolic blood pressure 76 mm[Hg] Harsha Ball Other [employer] Other 05-11-2023 14:30-0400 Respiratory rate 12 /min Harsha Ball Other [employer] Other 05-11-2023 14:30-0400 Systolic blood pressure 118 mm[Hg] Harsha Ball Other [employer] Other 04-20-2023 11:00-0400 Body height 162.56 cm Harsha Ball Other [employer] Other 04-20-2023 11:00-0400 Body mass index (BMI) [Ratio] 27.36 kg/m2 Harsha Ball Other [employer] Other 04-20-2023 11:00-0400 Body weight 72.3 kg Harsha Ball Other [employer] Other 04-20-2023 11:00-0400 Diastolic blood pressure 70 mm[Hg] Harsha Ball Other [employer] Other 04-20-2023 11:00-0400 Respiratory rate 12 /min Harsha Ball Other [employer] Other 04-20-2023 11:00-0400 Systolic blood pressure 112 mm[Hg] Harhsa Ball Other [employer] Other 02-08-2023 15:00-0400 Body height 162.56 cm Harsha Ball Other [employer] Other 02-08-2023 15:00-0400 Body mass index (BMI) [Ratio] 27.25 kg/m2 Harsha Ball Other [employer] Other 02-08-2023 15:00-0400 Body weight 72.03 kg Harsha Ball Other [employer] Other 02-08-2023 15:00-0400 Diastolic blood pressure 82 mm[Hg] Harsha Ball Other [employer] Other 02-08-2023 15:00-0400 Respiratory rate 12 /min Harsha Ball Other [employer] Other 02-08-2023 15:00-0400 Systolic blood pressure 118 mm[Hg] Harsha Ball Other [employer] Other 01-26-2023 13:15-0500 Body height 162.56 cm Harsha Ball Other [employer] Other 01-26-2023 13:15-0500 Diastolic blood pressure 70 mm[Hg] Harsha Ball Other [employer] Other 01-26-2023 13:15-0500 Respiratory rate 12 /min Harsha Ball Other [employer] Other 01-26-2023 13:15-0500 Systolic blood pressure 112 mm[Hg] Harsha Ball Other [employer] Other 12-16-2022 15:30-0500 Body height 162.56 cm Harsha Ball Other [employer] Other 12-16-2022 15:30-0500 Body mass index (BMI) [Ratio] 27.84 kg/m2 Harsha Ball Other [employer] Other 12-16-2022 15:30-0500 Body temperature 97.5 [degF] Harsha Ball Other [employer] Other 12-16-2022 15:30-0500 Body weight 73.57 kg Harsha Ball Other [employer] Other 12-16-2022 15:30-0500 SaO2% (BldA) [Mass fraction] 98 % Harsha Ball Other [employer] Other Encounters Encounter Date Encounter Type Care Provider Facility Start: 01-30-2025 ambulatory HARSHA [facility] Start: 01-22-2025 End: 01-24-2025 ambulatory RICHARD DAY [facility] Start: 01-22-2025 End: 01-24-2025 Subsequent hospital visit by physician Flores Brewer Dr [facility] Comment on above: Leg length discrepan cy Start: 01-03-2025 End: 01-03-2025 ambulatory [facility] Work Phone: Start: 01-03-2025 End: 01-03-2025 Patient encounter procedure [facility] Work Phone: Start: 10-16-2024 End: 10-16-2024 Patient encounter procedure [facility] Phys[facility] Work Phone: Start: 10-10-2024 Non-patient / Non-visit [facility] Work Phone: Start: 09-06-2024 End: 09-06-[address] [facility] Work Phone: Start: 09-06-2024 End: 09-06-2024 Patient encounter procedure [facility] Work Phone: Start: 08-15-2024 End: 08-17-2024 ambulatory CHING COHEN [facility] Start: 08-11-2024 End: 08-11-2024 [facility] Start: 07-27-2024 Non-patient / Non-visit [facility] Work Phone: Start: 07-18-2024 End: 07-18-[address] [facility] Work Phone: Start: 07-18-2024 End: 07-18-2024 Patient encounter procedure [facility] Work Phone: Start: 07-10-2024 End: 07-10-2024 ambulatory [facility] Work Phone: Start: 07-10-2024 End: 07-10-2024 Patient encounter procedure [facility] Work Phone: Start: 05-30-2024 End: 05-30-2024 ambulatory [facility] Work Phone: Start: 05-30-2024 End: 05-30-2024 Patient encounter procedure [facility] Work Phone: Start: 05-16-2024 End: 05-16-2024 ambulatory TUTU UNGER Not Available Start: 05-16-2024 End: 05-16-2024 Office outpatient new 45 minutes Tutu Unger DPM Work Phone: [facility] Comment on above: Pain of left foot (P rimary Dx); Pain of right foot; Callus; Pes planovalgus; Acquired leg length discrepancy; Tailor's bunion of left foot; Valgus deformity of both great toes; Hammer toes of both feet; Plantar fat pad atrophy; Other secondary osteoarthritis of both feet Start: 04-13-2024 End: 04-13-2024 ambulatory [facility] Work Phone: Start: 04-13-2024 End: 04-13-2024 Patient encounter procedure [facility] Work Phone: Start: 02-25-2024 Non-patient / Non-visit [facility] Work Phone: Start: 02-14-2024 End: 02-14-2024 ambulatory [facility] Work Phone: Start: 02-14-2024 End: 02-14-2024 Patient encounter procedure [facility] Work Phone: Start: 02-01-2024 End: 02-01-2024 ambulatory [facility] Start: 01-31-2024 Non-patient / [facility]-visit [facility] Work Phone: Start: 12-21-2023 End: 12-21-2023 ambulatory Harsha Arrieta Other [employer] Other Start: 12-21-2023 Telephone encounter Harsha Arrieta [facility] Start: 12-14-2023 End: 12-14-2023 ambulatory Harsha Arrieta Other [employer] Other Start: 12-14-2023 Telephone encounter Harsha Arrieta [facility] Start: 11-25-2023 End: 11-25-2023 ambulatory Harsha Arrieta Other [employer] Other Start: 11-25-2023 Transitional care aman mahan srvc 14 day discharge Harsha Arrieta [facility] Start: 11-25-2023 End: 11-25-2023 Patient encounter procedure [facility] Work Phone: Start: 11-23-2023 End: 11-23-2023 ambulatory [facility] Start: 11-12-2023 End: 11-12-2023 ambulatory Harsha Arrieta Other [employer] Other Start: 11-12-2023 Telephone encounter Harsha Arrieta [facility] Start: 11-11-2023 End: 11-11-2023 ambulatory Harsha Arrieta Other [employer] Other Start: 11-11-2023 Nursing facility discharge management 30 minutes Harsha Arrieta [facility] Start: 11-11-2023 Telephone encounter Harsha Ball [facility] Start: 11-09-2023 End: 11-09-2023 ambulatory Harsha Arrieta Other [employer] Other Start: 11-09-2023 Telephone encounter Harsha Arrieta [facility] Start: 11-01-2023 End: 11-01-2023 ambulatory Harsha Arrieta Other [employer] Other Start: 11-01-2023 Telephone encounter Harsha Arrieta [facility] Start: 10-28-2023 End: 10-28-2023 ambulatory Harsha Ball Other [employer] Other Start: 10-28-2023 Sbsq nursing facil care/day new problem 25 min Harsha Ball [facility] Start: 10-28-2023 Telephone encounter Harsha Ball [facility] Start: 10-21-2023 ambulatory [facility] Start: 10-21-2023 End: 10-21-2023 ambulatory [facility] Start: 10-17-2023 End: 10-17-2023 ambulatory Harsha Ball Other [employer] Other Start: 10-17-2023 Telephone encounter Harsha Arrieta [facility] Start: 10-15-2023 End: 10-15-2023 ambulatory Harsha Ball Other [employer] Other Start: 10-15-2023 Sbsq nursing facil care/day new problem 25 min Harsha Ball [facility] Start: 10-09-2023 End: 10-09-2023 ambulatory Harsha Ball Other [employer] Other Start: 10-09-2023 Telephone encounter Harsha Arrieta [facility] Start: 10-08-2023 End: 10-08-2023 ambulatory Harsha Ball Other [employer] Other Start: 10-08-2023 Telephone encounter Harsha Ball [facility] Start: 10-07-2023 End: 10-07-2023 ambulatory Harsha Ball Other [employer] Other Start: 10-07-2023 Initial nursing faci lity care/day 45 minutes Harsha Ball [facility] Start: 10-05-2023 End: 10-05-2023 ambulatory Harsha Ball Other [employer] Other Start: 10-05-2023 Telephone encounter Harsha Ball [facility] Start: 10-04-2023 End: 10-04-2023 ambulatory Harsha Ball Other [employer] Other Start: 10-04-2023 Telephone encounter Harsha Ball [facility] Start: 09-30-2023 End: 09-30-2023 ambulatory Harsha Ball Other [employer] Other Start: 09-30-2023 Telephone encounter Harsha Ball [facility] Start: 09-26-2023 End: 09-26-2023 ambulatory Harsha Ball Other [employer] Other Start: 09-26-2023 Telephone encounter Harsha Ball [facility] Start: 09-25-2023 End: 09-30-2023 [facility] Start: 09-22-2023 End: 09-22-2023 ambulatory Harsha Ball Other [employer] Other Start: 09-22-2023 Telephone encounter Harsha Ball [facility] Start: 09-14-2023 End: 09-14-2023 ambulatory [facility] Start: 08-30-2023 End: 08-30-2023 ambulatory Harsha Ball Other [employer] Other Start: 08-30-2023 Office outpatient vi sit 15 minutes Harsha Ball [facility] Start: 08-11-2023 End: 08-11-2023 ambulatory Harsha Ball Other [employer] Other Start: 08-11-2023 Telephone encounter Harsha Ball [facility] Start: 07-19-2023 End: 07-19-2023 ambulatory Harsha Ball Other [employer] Other Start: 07-19-2023 Encounter for other preprocedural examination Harsha Arrieta [facility] Start: 07-19-2023 Office outpatient vi sit 25 minutes Harsha Ball [facility] Start: 07-16-2023 End: 07-16-2023 ambulatory Harsha Arrieta Other [employer] Other Start: 07-16-2023 Telephone encounter Harsha Arrieta [facility] Start: 07-12-2023 End: 07-13-2023 ambulatory Frank Cannon DO Facility:[facility] Start: 06-25-2023 End: 06-25-2023 ambulatory Harsha Arrieta Other [employer] Other Start: 06-25-2023 Nursing evaluation o f patient and report Harsha Arrieta [facility] Start: 06-21-2023 End: 06-21-2023 ambulatory Harsha Ball Other [employer] Other Start: 06-21-2023 Nursing evaluation o f patient and report Harsha Arrieta [facility] Start: 05-17-2023 End: 05-17-2023 ambulatory Harsha Arrieta Other [employer] Other Start: 05-17-2023 Telephone encounter Harsha Arrieta [facility] Start: 05-11-2023 End: 05-11-2023 ambulatory Harsha Arrieta Other [employer] Other Start: 05-11-2023 Office outpatient vi sit 25 minutes Harsha Ball [facility] Start: 04-20-2023 End: 04-20-2023 ambulatory Harsha Ball Other [employer] Other Start: 04-20-2023 Office outpatient vi sit 15 minutes Harsha Ball [facility] Start: 04-14-2023 End: 04-15-[address] MD Facility:[facility] Start: 04-05-2023 End: 04-05-2023 ambulatory Harsha Ball Other [employer] Other Start: 04-05-2023 Telephone encounter Harsha Arrieta [facility] Start: 02-10-2023 End: 02-11-[address] HARSHA ARRIETA Facility:[facility] Start: 02-10-2023 Nursing evaluation o f patient and report Harsha Arrieta [facility] Start: 02-10-2023 Telephone encounter Harsha Arrieta [facility] Start: 02-08-2023 End: 02-09-[address] HARSHA ARRIETA [employer] Other Start: 02-08-2023 Patient encounter procedure Harsha Arrieta [facility] Start: 02-08-2023 Telephone encounter Harsha Arrieta [facility] Start: 02-01-2023 End: 02-01-2023 ambulatory Harsha Arrieta Other [employer] Other Start: 02-01-2023 Telephone encounter Harsha Arrieta [facility] Start: 01-26-2023 End: 01-27-[address] HARSHA ARRIETA [employer] Other Start: 01-26-2023 Office outpatient vi sit 15 minutes Harsha Arrieta [facility] Start: 01-26-2023 Telephone encounter Harsha Arrieta [facility] Start: 01-18-2023 End: 01-19-[address] HARSHA ARRIETA Facility:[facility] Start: 01-11-2023 End: 01-11-2023 ambulatory Harsha Arrieta Other [employer] Other Start: 01-11-2023 Telephone encounter Harsha Arrieta [facility] Start: 01-08-2023 End: 01-09-[address] HARSHA ARRIETA Facility:[facility] Start: 12-17-2022 End: 12-17-2022 ambulatory Harsha Arrieta Other [employer] Other Start: 12-17-2022 Telephone encounter Harsha Arrieta [facility] Start: 12-16-2022 End: 12-16-2022 ambulatory Harsha Arrieta Other [employer] Other Start: 12-16-2022 Office outpatient vi sit 25 minutes [facility] Start: 12-11-2022 End: 12-14-[address] JUN MARTÍNEZ . Facility:[facility] Start: 09-30-2022 End: 10-01-[address] HARSHA ARRIETA Facility:[facility] Start: 09-15-2022 Gynecological examin ation normal Harsha Arrieta Other [employer] Other Start: 08-07-2022 End: 08-07-[address] JUN MARTÍNEZ . Facility:[facility] Start: 07-14-2022 End: 07-15-[address] HARSHA ARRIETA Facility:[facility] Start: 05-12-2022 End: 05-13-[address] HARSHA ARRIETA Facility:[facility] Start: 05-05-2022 End: 05-06-[address] JUN MARTÍNEZ . Facility:[facility] Start: 05-04-2022 End: 05-05-[address] HARSHA ARRIETA Facility:[facility] Start: 04-29-2022 End: 04-30-[address] HARSHA ARRIETA Facility:[facility] Start: 03-09-2022 End: 03-10-[address] HARSHA ARRIETA Facility:[facility] Start: 02-03-2022 Adult health examination Wade Arrieta Other [employer] Other Procedures Date Procedure Procedure Detail Performing Clinician Start: 01-22-2025 Bone length studies Lexy Day MD Work Phone: Start: 01-14-2025 Radex foot complete minimum 3 views Tutu Unger DPM Work Phone: Start: 01-14-2025 Radex foot complete minimum 3 views Tutu Unger DPM Work Phone: Start: 07-17-2014 Screening mammography B enjamiley Arrieta Other End: 03-20-2020 Counseling Harsha Arrieta Other Depression screening Julianne Arrieta Other Screening for malign ant neoplasm of breast Harsha Arrieta Other Plan of Treatment Date Care Activity Detail Author Start: 01-30-2025 End: 01-30-2025 Patient encounter procedure 01/30/2025 4:00 PM EDT [facility] [address] [place] [id number] Richard Santos, PT MEDICARE [facility] Comment on above: MEDICARE Start: 09-30-2024 GFR test (Diabetes, CKD 3-4, OR last GFR 15-59) GFR test (Diabetes, CKD 3-4, OR last GFR 15-59) [facility] Start: 07-23-2024 COVID-19 Vaccine ( season) COVID-19 Vaccine () [facility] [employer] Start: 10-18-2023 Annual Wellness Visi t (Medicare) Annual Wellness Visit (Medicare) [facility] Start: 08-02-2023 ambulatory Ambulatory Facility:[facility] Start: 07-27-2023 ambulatory Ambulatory Facility:[facility] Start: 07-03-2020 Pneumococcal 50+ yea rs Vaccine (2 of 2 - PCV) Pneumococcal 50+ years Vaccine (2 of 2 - PCV) [facility] [employer] Start: 01-22-2020 Respiratory Syncytia l Virus (RSV) or age 60 yrs+ (1 - 1-dose 75+ series) Respiratory Syncytial Virus (RSV) or age 60 yrs+ (1 - 1-dose 75+ series) [facility] [employer] Start: 01-22-2000 Screening for osteoporosis DEXA (modify frequency per FRAX score) [facility] Start: 01-22-1964 DTaP/Tdap/Td vaccine (1 - Tdap) DTaP/Tdap/Td vaccine (1 - Tdap) [facility] [employer] Start: 1963 Urine screening for protein Diabetic Alb to Cr ratio (uACR) test [facility] [employer] Start: 1957 Depression Screen Depression Screen [facility] Start: 1955 Lipid panel Lipids [facility] [employer] Comprehensive metabo [facility] 2000 panel - Serum or Plasma [facility] MG Breast - bilatera l Screening [facility] Immunizations Immunization Date Immunization Notes Care Provider Eleazar swift 09-06-2024 influenza, high dose seasonal, preservative-free [facility] 08-26-2022 influenza, high dose seasonal, preservative-free Harsha Arrieta Other [facility] [employer] Other 08-26-2022 influenza virus vaccine, split virus (incl. purified surface antigen) Harsha Arrieta Other [facility] [employer] Other 08-26-2022 influenza virus vaccine, unspecified formulation [facility] 03-09-2022 zoster vaccine recombinant Harsha Arrieta Other [facility] 10-21-2021 zoster vaccine recombinant Harsha Arrieta Other [facility] 08-26-2021 COVID-19 Vaccine Pfi zer - Documentation Purposes Only Harsha Arrieta Other [facility] 01-09-2021 COVID-19 Vaccine Pfi zer - Documentation Purposes Only Harsha Arrieta Other [facility] 12-19-2020 COVID-19 Vaccine Moderna - Documentation Purposes Only Harsha Arrieta Other [facility] 12-19-2020 COVID-19 Vaccine Pfi zer - Documentation Purposes Only Harsha Arrieta Other [facility] 09-17-2020 influenza virus vaccine, split virus (incl. purified surface antigen) Harsha Arrieta Other [facility] [employer] Other 09-17-2020 influenza virus vaccine, unspecified formulation [facility] 10-03-2019 influenza virus vaccine, split virus (incl. purified surface antigen) Harsha Arrieta Other [facility] [employer] Other 10-03-2019 influenza virus vaccine, unspecified formulation [facility] 07-03-2019 pneumococcal polysaccharide vaccine, 23 valent Harsha Arrieta Other [facility] 09-28-2018 influenza virus vaccine, split virus (incl. purified surface antigen) Harsha Arrieta Other [facility] [employer] Other 09-28-2018 influenza virus vaccine, unspecified formulation [facility] 08-17-2017 influenza virus vaccine, split virus (incl. purified surface antigen) Harsha Arrieta Other [facility] [employer] Other 08-17-2017 influenza virus vaccine, unspecified formulation [facility] 09-04-2015 influenza virus vaccine, split virus (incl. purified surface antigen) Harsha Arrieta Other [facility] [employer] Other 09-04-2015 influenza virus vaccine, unspecified formulation [facility] 09-04-2015 pneumococcal conjuga te vaccine, 13 valent Harsha Arrieta Other [facility] 08-03-2012 tetanus and diphther ia toxoids, adsorbed, preservative free, for adult use (5 Lf of tetanus toxoid and 2 Lf of diphtheria toxoid) Harsha Arrieta Other [facility] pneumococcal Conjuga te, unspecified formulation; Translations: [Need for prophylactic vaccination against Streptococcus pneumoniae (pneumococcus)] Harsha Arrieta Other [facility] [employer] Other Payers Date Payer Category Payer Private Health Insurance [employer] [id number] 2023 Unknown 2010 Medicare 1959 Medicare [id number] 1959 Unknown [id number] 2.16.840.1.861229.19 1945 Unknown [id number] 2.16.840.1.938975.3.579.2 .593 1945 Unknown [id number] 2.16.840.1.040978.3.579.2 .593 1945 Unknown [id number] 2.16.840.1.466837.3.579.2 .593 1945 Unknown [id number] 2.16.840.1.202454.3.579.2 .593 1945 Unknown [id number] 2.16.840.1.185319.3.579.2 .593 1945 Unknown [id number] 2.16.840.1.223066.3.579.2 .593 1945 Unknown [id number] 2.16.840.1.986933.3.579.2 .593 1945 Unknown [id number] 2.16.840.1.710349.3.579.2 .593 1945 Unknown [id number] 2.16.840.1.967256.3.579.2 .593 1945 Unknown [id number] 2.16.840.1.447338.3.579.2 .593 1945 Unknown [id number] 2.16.840.1.324806.3.579.2 .593 1945 Unknown [id number] 2.16.840.1.900536.3.579.2 .593 1945 Unknown [id number] 2.16.840.1.088447.3.579.2 .593 1945 Unknown [id number] 2.16.840.1.282745.3.579.2 .593 1945 Unknown [id number] 2.16.840.1.395951.3.579.2 .196 1945 Unknown [id number] 2.16.840.1.716878.3.579.2 .196 1945 Unknown [id number] 2.16.840.1.945061.3.579.2 .196 1945 Unknown [id number] 2.16.840.1.316487.3.579.2 .196 1945 Unknown [id number] 2.16.840.1.026886.3.579.2 .196 1945 Unknown [id number] 2.16.840.1.248117.3.579.2 .93 1945 Unknown [id number] 2.16.840.1.358139.3.579.2 .1259 1945 Unknown [id number] 2.16.840.1.085915.3.579.2 .173 1945 Unknown [id number] 2.16.840.1.639819.3.579.2 .173 1945 Unknown [id number] 2.16.840.1.396029.3.579.2 .173 1945 Unknown [id number] 2.16.840.1.554782.3.579.2 .173 1945 Unknown [id number] 2.16.840.1.302415.3.579.2 .173 Social History Date Type Detail Facility Start: 09-25-2023 End: 05-16-2024 Sex Assigned At [facility] Start: 1945 Sex Assigned At Female F [facility] Tobacco smoking stat us MTIS Unknown if ever smoked [facility] Work Phone: Start: 01-03-2025 Sex Female (finding) [facility] Start: 01-16-2013 End: 05-16-2024 Tobacco smoking status NHIS Never smoked tobacco [facility] Start: 05-16-2024 Tobacco use and exposure Smokeless tobacco non-user [facility] Start: 05-16-2024 Alcoholic beverage intake Ex-drinker (finding) [facility] Start: 09-25-2023 End: 05-16-2024 History of Social function [facility] Start: 1945 Sex assigned at Not on file [facility] Start: 09-28-2023 Alcoholic beverage intake Current drinker of alcohol (finding) [facility], Retired: Physical Abuse Denies [facility] Start: 01-16-2013 Alcohol Comment social [facility] Medical Equipment Procedure Code Equipment Code Equipment Origin al Text Equipment Identifier Dates Nail Im L280mm [id number] Fem Tib Ti Josy Lck Rg Gld Keene-Nail - [id number] Start: 09-25-2023 Screw Bne L30mm Dia5mm Ge Ti Int Capt Hex Lo Prof For Im - [id number] Start: 09-25-2023 Screw Bne L30mm Dia5mm Ge Ti Int Capt Hex Lo Prof For Im - [id number] Start: 09-25-2023 Screw Bne L47.5m m Dia5mm Ge Tib Ti Int Hex Lo Prof For Im - [id number] Start: 09-25-2023 Clinical Notes 10-01-2022 to 10-16-2024 Note Date & Type Note Facility 10-16-2024 Evaluation note Diagnosis Onset Date Resolution Essential hypertension acute No [id number] 2:02pm GERD (gastroesophageal reflux disease) acute October 16, 2 024 2:02pm Hypothyroid acute September 2:02pm Paroxysmal atrial fibrillation acute October 16, 2 024 2:02pm Stage 3b chronic kidney disease acute October 16, 2 024 2:02pm Type 2 diabetes mellitus with diabetic polyneuropathy acute October 16, 2 024 2:02pm Type 2 diabetes mellitus with hyperglycemia acute September 2:02pm Essential hypertension acute Fe 2024 1:54pm GERD (gastroesophageal reflux disease) acute January 03, 2 025 1:54pm Hypothyroid acute December 1:54pm Paroxysmal atrial fibrillation acute January 03, 2 025 1:54pm Stage 3b chronic kidney disease acute January 03, 2 025 1:54pm Type 2 diabetes mellitus with diabetic polyneuropathy acute January 03 025 1:54pm Type 2 diabetes mellitus with hyperglycemia acute December 1:54pm [facility] Work Phone: [phone]) 595-871509-20-2024 [id number]= [id number] age, female, CHF, CAD/vascular disease, diabetes Currently on EKG patient is in sinus rhythm Continue amiodarone 200 mg a day and Cardizem 240 daily she remains on Eliquis anticoagulation without any bleeding tendenciesUnLake [facility]09-20-2024 NoteAmiodarone Monitoring: CBC annually-stable ALT, AST annually-stable TSH annually-stable Cxray annually-ordered Dilated eye exam Annually- recently completed per pt PFT Annually- ordered CT chest Consideration EKG Annually and PRNUnLake County [facility] Hospital [facility]09-20-2024 Note Hypertension is unchanged. Currently blood pressure is well-controlled 130/68 continue Cardizem, hydrochlorothiazide and lisinopril Continue current treatment regimen. Continue current medications. Blood pressure will be reassessed at the next regular appointment. Renal function stableUnLake County [facility]09-20-2024 NoteCoronary artery disease is unchanged. No concerning symptoms at this time Remains on goal-directed medical therapy of Lipitor no aspirin in light of Eliquis, lisinopril. Continue current treatment regimen. Continue current medications. Cardiac status will be reassessed in 6 months.[facility]09-20-2024 NoteNYHC II currently euvolemic without exacerbation No concerning symptoms today Continue GDMT-currently on lisinopril and hydrochlorothiazide no Diuretic therapy currently required Monitor daily weights, I&O, fluid restriction 1.5-2L/day, renal function and electrolytes-[facility]09-20-2024 NoteNo concerning symptoms Will monitor with routine echocardiogram Discussed with patient to call office for any chest pain, shortness of breath, palpitations, syncope and she voiced understanding.[facility]09-20-2024 NotePt here for a six month follow up. Pt denies sob, chest pain, palpatations Review of Systems Cardiovascular: Positive for leg swelling. Hematologic/Lymphatic: Bruises/bleeds easily. Musculoskeletal: Positive for arthritis and joint pain. Neurological: Positive for loss of balance and weakness. All other systems reviewed and are negative.[facility] 08-11-2024 NoteUTP CARDIOLOGY PROGRESS NOTE HPI: Fatuma Mena is a 79 y.o. female here for routine F/U HPI 79 yo female presents for routine F/U Afib s/p DCCV 10/21/23 on amiodarone Patient presents today for routine follow-up denies any concerning symptoms since our last visit. She denies any palpitations, chest pain, shortness of breath or orthopnea. Denies lightheadedness, dizziness or syncope. Admits her biggest activity limiting's symptoms are related to her fractured right femur status post hip surgery last year. She does admit that she bruises easily but denies any other bleeding tendencies. Pt denies sob, chest pain, palpatations Review of Systems Cardiovascular: Positive for leg swelling. Hematologic/Lymphatic: Bruises/bleeds easily. Musculoskeletal: Positive for arthritis and joint pain. Neurological: Positive for loss of balance and weakness. All other systems reviewed and are negative Previous HPI 11/23/23 Karlee Pearson NP Reason for visit: Afib s/p DCCV 10/21/23 on amiodarone 11/23/22: She is here s/p DCCV on amiodarone She hasnt noticed a difference being in SR ECG 11/23/22 SR 70bpm 09/14/23 dr. trinidad HPI: Fatuma Mena is a 78 y.o. year old with past medical history of Type 2 diabetes mellitus, hypertension, left breast cancer, hyperlipidemia, SHIRA, CKD stage III who was previously seen by Karlee CASTILLO for A-fib and also for cardiac clearance. Previously she was seen by her PCP who found her to be in A-fib and in May 11, 2023 she was started on Eliquis when a Holter monitor had revealed the presence of A-fib. At that time she was placed on Coreg 12.5 mg twice daily which was subsequently increased to 25 twice daily as she had rapid ventricular rate. Subsequent Lexiscan stress test on 11/20/2021 showed no reversible ischemia but fixed defect in the mid anterior wall with underlying normal wall motion and normal EF. Subsequent echocardiogram in May 13 revealed normal EF and left atrium was noted to be moderately dilated Holter monitor in December 2022 again showed A-fib to be the predominant rhythm with a ventricular rate noted to be as elevated as 139 bpm. She mentions that she notices shortness of breath when she is in A-fib. She has not been previously cardioverted. Her beta-jhon dosing was changed to Cardizem 240 once daily by Karlee CASTILLO but she continues to have high ventricular rate. she is extremely fatigued and tired and initially attributed this to her postoperative. She continues to be in A-fib with rapid ventricular rate ranging from 120- 125 beats a minute EKG 09/14/2023 atrial fibrillation with rapid ventricular rate Visit Vitals BP 130/68 (BP Location: Right arm, Patient Position: Sitting) Pulse 60 Ht 1.626 m (5' 4 ) Wt 70.8 kg (156 lb) SpO2 97% BMI 26.78 kg/m??? OB Status Postmenopausal Smoking Status Never BSA 1.79 m??? Allergies Allergen Reactions Sertraline shaking Medications: Current Outpatient Medications on File Prior to Visit Medication Sig Dispense Refill ALPRAZolam (Xanax) 0.25 mg tablet Take 0.25 mg by mouth. amiodarone (Pacerone) 200 mg tablet 200mg once daily 90 tablet 3 atorvastatin (Lipitor) 40 mg tablet Take 40 mg by mouth in the evening. dilTIAZem CD (Cardizem CD) 240 mg 24 hr capsule Take 1 capsule (240 mg) by mouth in the morning. 90 capsule 3 glimepiride (Amaryl) 2 mg tablet Take 1 mg by mouth before breakfast. hydroCHLOROthiazide (HYDRODiuril) 25 mg tablet Take 25 mg by mouth in the morning. lisinopril 20 mg tablet Take 20 mg by mouth in the morning. Trulicity 0.75 mg/0.5 mL pen injector INJECT 0.5ML SUBCUTANEOUSLY ONCE A WEEK ON WEDNESDAY calcium carbonate-vitamin D3 600 mg-5 mcg (200 unit) tablet Take by mouth. Eliquis 5 mg tablet Take 5 mg by mouth in the morning and at bedtime. insulin glargine (Lantus) 100 unit/mL injection vial Inject under the skin at bedtime. 10 units insulin lispro (HumaLOG) 100 unit/mL injection Inject 4-14 Units under the skin with breakfast, with lunch, and with evening meal. omeprazole (PriLOSEC) [address] capsule Take 10 mg by mouth before breakfast. No current facility-administered medications on file prior to visit. Physical Exam: Constitutional: Appearance: Normal appearance. Without apparent distress HENT: Head: Normocephalic and atraumatic. Nose: Nose normal. Mouth/Throat: Mouth: Mucous membranes are moist. Eyes: Extraocular Movements: Extraocular movements intact. Conjunctiva/sclera: Conjunctivae normal. Neck: Vascular: No JVD. Cardiovascular: Rate and Rhythm: Normal rate and regular rhythm. Pulses: Dorsalis pedis pulses are 3 on the right side and 3on the left side. Posterior tibial pulses are 3 on the right side and 3 Rudy when they stay in rhythm on the left side. Heart sounds: Normal heart sounds, S1 normal and S2 normal. Pulmonary: Effort: Pulmonary effort is normal. Breath sounds: Normal breath sounds. Abdominal: General: Pj (more content not included)...[facility] 05-16-2024 History of Present illness Narrative* Tutu Unger, DAVID - 05/16/2024 2:30 PM EDT Reason for Visit: NEW PATIENT: Bilateral foot pain Second Complaint: Annual Comprehensive Diabetic Foot Examination. HPI NEW PATIENT presents for bilateral foot pain due to gait abnormality s/p RT hip surgery on 08-02-2023 and recovered from that. She then had a fall at home and fractured her RT femur on 09-24-2024. Patient had ORIF RT femur on 09-25-2023. Patient states that since surgeries her RT leg is now longer andcauses pain to the bilateral foot. She is using a cane for ambulation assistance. Patient also has pain to the LT foot fifth MPJ region where her shoes rub and cause a callus. She believes this is due to the insoles she is wearing in her shoes. Patient wears a lift in the LT shoe. Second Complaint: Annual Comprehensive Diabetic Foot Examination. AM glucose: 159. Review of Systems General: Chills denies. Fatigue denies. Fever denies. Night sweats denies. Endocrine: Diabetes denies. Hyperpigmentation denies. Weakness denies. Cardiovascular: Chest pain denies. Shortness of breath denies. Gastrointestinal: Constipation denies. Diarrhea denies. Nausea denies. Vomiting denies. Hematology: Anemia denies. Bleeding problems denies. Easy bruising denies. Musculoskeletal: Bone/joint symptoms denies. Leg cramps denies. Peripheral Vascular: Edema denies. Raynaud's denies. Rest pain denies. Varicose veins denies. Skin: Nail changes denies. Rash denies. Skin lesion(s) denies. Ulceration admits. Neurologic: Dizziness denies. Gait abnormality denies. Headache denies. Tingling/Numbness denies. Examination General Examination: GENERAL EXAMINATION: awake, aware of surroundings, in no acute distress. Vascular: DORSALIS PEDIS PULSE: palpable bilateral. POSTERIOR TIBIAL PULSE: palpable bilateral. TEMPERATURE GRADIENT: warm to cool. EDEMA: none . CAPILLARY FILLING TIME(sec): less than 2 seconds bilateral. Ankle / Foot: MUSCLE STRENGTH: 5-/5 to the major muscle groups , toes are much weaker bilaterally.. Neurologic: VIBRATORY: Decreased bilateral forefoot. SEMMES-LÓPEZ 5.07 MONOFILAMENT: Decreased bilateral forefoot. NEUROLOGIC: mild neuropathy bilaterally. Dermatologic: SKIN FINDINGS: texture, turgor and hair growth normal HYPERKERATOSIS: plantar left 5th MPJ NAIL PATHOLOGY: Intact toenails to 1-5 bilaterally. Orthopedic: JOINT RANGE OF MOTION: normal. ORTHOPEDIC / DEFORMITIES: right leg longer due to fracture with ORIF, gait abnormality as well, bilateral foot pain status post fracture repair, painful left foot 5th MPJ due to callus, heel lift intact left shoe due to limb length discrepancy which I believe is also causing some pain. Fat pad atrophy bilateral forefoot. Tailor's bunion left, toe contractures bilaterally mild. PAIN ON PALPATION: Bilateral midfoot and diffuse foot pain bilaterally, sub 5th MPJ left. PAIN ON ROM: None. Mostly on weight-bearing. SHOE GEAR EVALUATION: athletic shoes bilateral foot. Imagin05-16-24 Bilateral foot weight-bearing three views AP, medial oblique, lateral were obtained. Right foot: Patient has severe hallux abductovalgus right foot with significant lateral deviation of the hallux on the 1st metatarsal proximally 45-50 percent. Toes 3, 4 half splaying, 4th and 5th toe are mildly contracted as are other toes of the 4th and 5th are the worse. Severe arthritis North metatarsal bases 2-4 with significant joint space narrowing and sclerosis. Lateral view shows severe pes planovalgus right foot large plantar fluffy calcaneal spur, midfoot arthritis noted lesser toes are contracted. LEFT FOOT: Patient has moderate to severe hallux abductovalgus left foot irregular 1st metatarsal head medially due to possible previous surgery/ silver bunionectomy, lateral deviation of thehallux of the 1st metatarsal proximally 40 percent. Lesser toes are abducted due to hallux deviation laterally tailor's bunion left adductovarus left 5th toe. Joint space narrowing of the metatarsal bases is not as severe as right though is mostly noted of the 2nd and 3rd metatarsal bases. Lateral view: Severe pes planovalgus left foot very large plantar calcaneal spur, calcific Achilles tendon noted for approximately 1.8 cm small calcifications noted of the plantar fascia distal to the plantarfascial origin. Assessments - Bilateral foot pain - osteoarthritis bilateral midfoot - status post ORIF right femur fracture - gait abnormality -Limb length discrepancy right leg longer than left - Hallux abductovalgus bilaterally -Pes planovalgus bilaterally - Mild toe contracture/hammertoes bilaterally - Fat pad atrophy bilateral forefoot -Tailor's bunion left -Painful callus left foot sub 5th MPJ Plan New patient seen today for Bilateral foot pain. Patient was limb length discrepancy as well. Right leg is longer due to hip fracture repair, femur repair right heel lift is worn in left shoe. Physical examination was performed bilaterally at length. X-rays Bilateral foot weight-bearing three views AP, medial oblique, lateral were obtained in office and reviewed with patient. Patient was advised of the benefits of activity modification and the need to avoid activities that aggravate the injured anatomy, i.e. prolonged weightbearing/standing, bending, kneeling, squatting, climbing steps/stairs/ladders, and exercising. Patient voiced understanding. Patient was advised of the benefits of ice application and the need to apply ice bag/frozen gel pack to affected area 15 minutes on/off for pain/edema control. Patient was advised to not fall asleep with ice bag/frozen gel pack applied to affected area. Patient voiced understanding. For calluses: RX: Urea 40 percent cream to be applied to calluses q.h.s. under occlusion, self debride at least weekly with non sharp and nonmetallic emery board or finger nail file. Offloading calluses with the orthotics is imperative to reduce pain however she was advised we will have to check insurance to see if she would qualify for orthotics as well as extra-depth diabetic shoes due to her large bunion deformities her shoes would be very difficult to dispensed and fit we will have to referher out to local store group manager/ reforestation worker. Patient was advised due to multiple comorbidities we would not proceed with oral anti-inflammatories OTC Tylenol would be as little as she could take take as little as possible as long as she has no contraindications. Patient was further advised to apply OTC Aspercreme with lidocaine or similar product for pain relief dorsally and midfoot as well as generalized foot this to assist with the pain as we can not proceed with much anti-inflammatories orally. Patient was advised we may need to proceed with the advanced imaging bilaterally if pain does not improve though I believe most most of the patient's pain is osteoarthritic in nature due to limb length discrepancies, advanced age and foot deformities bilaterally. Patient advised to elevate and rest both feet as much as possible to control pain and inflammation. Patient advised to reduce prolonged periods of weight-bearing bilateral foot until completely pain free. Patient was dispensed one 1/8 inch and one 1/4 inch rubber/ [place] heel lift to 1st place the 1/8 left left for a couple of days and see if that assists with her limb length discrepancy discomfort as we must gradually increase the limb length and heel lifts. If after 5 days, patient was not see muchimprovement then removed the 1/8 heel lift, the apply the 1/4 heel lift left for 5 days. If she has pain with any of these lifts- discontinue immediately and contact office. If the 1/4 inches not improve then I would add both 1/8 inch in the quarter-inch together and see how she does with that over the next 5 days. Patient was advised he may need a custom-made heel lift or even external shoe lift to accommodate the limb length discrepancy. Reappoint in 2-3 weeks. Diabetes mellitus with neuropathy 1. NEW patient seen today for examination and Annual Comprehensive Diabetic Foot Examination was performed. 2. Patient advised to always maintain proper diabetic control. 3. Patient advised to wash and dry bilateral foot once daily and apply a good moisturizing cream tobilateral lower extremity, except for in between toes, post bathing to keep skin from becoming too dry. 4. Patient advised to perform daily foot inspections and observe for any signs of skin breakdown. documented in this encounterProgress West [id number] NoteUT Electrophysiology Consult Note: Reason for visit: Afib s/p DCCV 10/21/23 on amiodarone 02/01/24 Pt is doing well in SR. Patient here for 2 mo follow up for afib management per Karlee Pearson CNP. She denies chest pain, SOB, lightheadedness/syncope, and bleeding on Eliquis. Sometimes feels palpitations when she gets up at night. EKG 02/01/24 SR 11/23/22: She is here s/p DCCV on amiodarone She hasnt noticed a difference being in SR ECG 11/23/22 SR 70bpm 09/14/23 dr. trinidad HPI: Fatuma Mena is a 79 y.o. year old with past medical history of Type 2 diabetes mellitus, hypertension, left breast cancer, hyperlipidemia, SHIRA, CKD stage III who was previously seen by Karlee CASTILLO for A-fib and also for cardiac clearance. Previously she was seen by her PCP who found her to be in A-fib and in May 11, 2023 she was started on Eliquis when a Holter monitor had revealed the presence of A-fib. At that time she was placed on Coreg 12.5 mg twice daily which was subsequently increased to 25 twice daily as she had rapid ventricular rate. Subsequent Lexiscan stress test on 11/20/2021 showed no reversible ischemia but fixed defect in the mid anterior wall with underlying normal wall motion and normal EF. Subsequent echocardiogram in May 13 revealed normal EF and left atrium was noted to be moderately dilated Holter monitor in December 2022 again showed A-fib to be the predominant rhythm with a ventricular rate noted to be as elevated as 139 bpm. She mentions that she notices shortness of breath when she is in A-fib. She has not been previously cardioverted. Her beta-jhon dosing was changed to Cardizem 240 once daily by Karlee CASTILLO but she continues to have high ventricular rate. she is extremely fatigued and tired and initially attributed this to her postoperative. She continues to be in A-fib with rapid ventricular rate ranging from 120- 125 beats a minute EKG 09/14/2023 atrial fibrillation with rapid ventricular rate PMH: Past Medical History: Diagnosis Date Abnormal ECG Arrhythmia Atrial fibrillation (CMS/HCC) Diabetes mellitus (CMS/HCC) Hypertension PSH: Past Surgical History: Procedure Laterality Date HYSTERECTOMY MASTECTOMY, PARTIAL TUBAL LIGATION SH: Social Determinants of Health Tobacco Use: Low Risk (07/13/2023) Patient History Smoking Tobacco Use: Never Smokeless Tobacco Use: Never Passive Exposure: Not on file Alcohol Use: Not on file Financial Resource Strain: Not on file Food Insecurity: Not on file Transportation Needs: Not on file Physical Activity: Not on file Stress: Not on file Social Connections: Not on file Intimate Partner Violence: Unknown (01/13/2024) [place] Safety & Environment Fear of Current or Ex-Partner: Not on file Emotionally Abused: Not on file Physically Abused: Not on file Sexually Abused: Not on file Physically or Sexually Abused: Not on file Depression: Not on file Housing Stability: Not on file Utilities: Not on file Allergies: Allergies Allergen Reactions Sertraline shaking Weight: 73.5kg Visit Vitals BP 132/68 (BP Location: Right arm, Patient Position: Sitting) Pulse 63 Ht 1.626 m (5' 4 ) Wt 73.5 kg (162 lb) SpO2 99% BMI 27.81 kg/m??? OB Status Postmenopausal Smoking Status Never BSA 1.82 m??? Meds: Current Outpatient Medications on File Prior to Visit Medication Sig Dispense Refill ALPRAZolam (Xanax) 0.25 mg tablet Take 0.25 mg by mouth. amiodarone (Pacerone) 200 mg tablet 200mg once daily 90 tablet 3 atorvastatin (Lipitor) 40 mg tablet Take 40 mg by mouth in the evening. calcium carbonate-vitamin D3 600 mg-5 mcg (200 unit) tablet Take by mouth. dilTIAZem CD (Cardizem CD) 240 mg 24 hr capsule Take 1 capsule (240 mg) by mouth in the morning. 90 capsule 3 Eliquis 5 mg tablet Take 5 mg by mouth in the morning and at bedtime. glimepiride (Amaryl) 2 mg tablet Take 1 mg by mouth before breakfast. hydroCHLOROthiazide (HYDRODiuril) 25 mg tablet Take 25 mg by mouth in the morning. lisinopril 20 mg tablet Take 20 mg by mouth in the morning. omeprazole (PriLOSEC) [address] capsule Take 10 mg by mouth before breakfast. Trulicity 0.75 mg/0.5 mL pen injector INJECT 0.5ML SUBCUTANEOUSLY ONCE A WEEK ON WEDNESDAY insulin glargine (Lantus) 100 unit/mL injection vial Inject under the skin at bedtime. 10 units insulin lispro (HumaLOG) 100 unit/mL injection Inject 4-14 Units under the skin with breakfast, with lunch, and with evening meal. No current facility-administered medications on file prior to visit. ROS: Review of Systems Cardiovascular: Positive for leg swelling. Hematologic/Lymphatic: Bruises/bleeds easily. Musculoskeletal: Positive for arthritis and joint pain. Neurological: Positive for loss of balance and weakness. All other systems reviewed and are negative. Physical Exam: Constitutional General Appearance: well-nourished, well-developed, appears stated age Level of D (more content not included)...[facility] 12-14-2023 Evaluation note* Encounter Date Diagnosis Assessment Notes Treatment Notes Treatment Clinical Notes Nov, Type 2 diabetes mellitus with diabetic polyneuropathy, without long-term current use of insulin (ICD-10 - E11.42) [employer] Other 01-04-2024 Evaluation note* Encounter Date Diagnosis Assessment Notes Treatment Notes Treatment Clinical Notes Nov, Type 2 diabetes mellitus with hyperglycemia, without long-term current use of insulin (ICD-10 - E11.65) This patient is following a comprehensive diabetic treatment plan. They are checking their feet daily for calluses and nonhealing ulcers. They are being seen for yearly dilated eye examinations. Goals: SBP less than 130, LDL less than 100, FBS less than 140, A1C less than 7%. They are checking their BS daily, will which are reviewed at the office visit. Continue regular routine monitoring of A1C,] Microalbumin, Dilated eye exam and Foot exam d/c basal insulin check home FBS qod Nov, Type 2 diabetes mellitus with diabetic polyneuropathy, without long-term current use of insulin (ICD-10 - E11.42) Inspect feet daily for cuts and calluses.Recommend diabetic shoes and inserts to prevent callus formation.Fall precautions. Nov, Stage 3b chronic kidney disease (ICD-10 - N18.32) The patient is instructed on adequate control of hypertension and diabetes, if appropriate. They are also educated on the associated risks of NSAIDs and PPI use with kidney disease. They were instructed on adequate fluid balance and to avoid dehydration. Nov, Primary hypertension (ICD-10 - I10) This patient is instructed to consume a healthy, low-fat, low-salt diet. They are also encouraged to continue exercise to achieve/maintain a normal BMI. Nov, Paroxysmal atrial fibrillation (ICD-10 - I48.0) This patient is in NSR. This patient is anticoagulated to prevent thromboembolic events. They are maintaining regular scheduled appts with their manager bilingual. Cardioverted late September at [facility]. Continue Amiodarone and Eliquis Nov, Acute blood loss anemia (ICD-10 - D62) Monitor for now Recheck CBC, Fe, B12, FA next OV Nov, Hyperlipidemia, mixe d (ICD-10 - E78.2) Instructed on diet and exercise with continued statin therapy.Discussed the beneficial effects of lowering cholesterol in reducing the risk for cerebrovascular and cardiovascular disease. Nov, MALIKA (generalized anxiety disorder) (ICD-10 - F41.1) Healthy diet and exercise. COnsistent sleep routine Keep active No change in medical therapy Avoid abrupt w/d of medications Nov, Obstructive sleep apnea (ICD-10 - G47.33) This patient is aware of the benefits associated with SHIRA: With continued use, the patient reduces the risk for SC, CVA, HTN, cardiac dysrhythmias and sudden cardiac deaths.The patient is also aware of the association between SHIRA and morning headaches, daytime somnolence, fatigue and obesity, which also has been improved with continued use.The patient is compliant with treatment, wearing the equipment every night for greater than 4 hours.The patient is instructed to continue use of the CPAP for SHIRA treatment. Nov, Gastroesophageal reflux disease with esophagitis without hemorrhage (ICD-10 - K21.00) Avoid lying flat after eating. Avoid eating 2 hours prior to bedtime. Smaller, frequent meals may be better tolerated.Weight loss if overweight.PPI with any heartburn.Monitor for dysphagia. Using Pepcid AC PRN Nov, Other specified disorders of bone density and structure, right thigh (ICD-10 - M85.851) Osteopenia - Ca and Vit D supplements - weight bearing exercises - Bisphosphonate therapy next OV Nov, Other specified disorders of bone density and structure, left thigh (ICD-10 - M85.852) [employer] Other 01-02-2024 NotePatient here for follow up cardioversion on 10/21/2023. Doing very well. Denies chest pain, SOB, palpitations, lightheadedness/syncope, and bleeding on Eliquis. Review of Systems Cardiovascular: Positive for leg swelling. Hematologic/Lymphatic: Bruises/bleeds easily. Musculoskeletal: Positive for arthritis and joint pain. Neurological: Positive for loss of balance and weakness. All other systems reviewed and are negative.[facility] 11-23-2023 NoteUT Electrophysiology Consult Note: Reason for visit: Afib s/p DCCV 10/21/23 on amiodarone 11/23/22: She is here s/p DCCV on amiodarone She hasnt noticed a difference being in SR ECG 11/23/22 SR 70bpm 09/14/23 dr. trinidad HPI: Fatuma Mena is a 78 y.o. year old with past medical history of Type 2 diabetes mellitus, hypertension, left breast cancer, hyperlipidemia, SHIRA, CKD stage III who was previously seen by Karlee CASTILLO for A-fib and also for cardiac clearance. Previously she was seen by her PCP who found her to be in A-fib and in May 11, 2023 she was started on Eliquis when a Holter monitor had revealed the presence of A-fib. At that time she was placed on Coreg 12.5 mg twice daily which was subsequently increased to 25 twice daily as she had rapid ventricular rate. Subsequent Lexiscan stress test on 11/20/2021 showed no reversible ischemia but fixed defect in the mid anterior wall with underlying normal wall motion and normal EF. Subsequent echocardiogram in May 13 revealed normal EF and left atrium was noted to be moderately dilated Holter monitor in December 2022 again showed A-fib to be the predominant rhythm with a ventricular rate noted to be as elevated as 139 bpm. She mentions that she notices shortness of breath when she is in A-fib. She has not been previously cardioverted. Her beta-jhon dosing was changed to Cardizem 240 once daily by Karlee CASTILLO but she continues to have high ventricular rate. she is extremely fatigued and tired and initially attributed this to her postoperative. She continues to be in A-fib with rapid ventricular rate ranging from 120- 125 beats a minute EKG 09/14/2023 atrial fibrillation with rapid ventricular rate PMH: Past Medical History: Diagnosis Date Abnormal ECG Arrhythmia Atrial fibrillation (CMS/HCC) Diabetes mellitus (CMS/HCC) Hypertension PSH: Past Surgical History: Procedure Laterality Date HYSTERECTOMY MASTECTOMY, PARTIAL TUBAL LIGATION SH: Social Determinants of Health Tobacco Use: Low Risk (07/13/2023) Patient History Smoking Tobacco Use: Never Smokeless Tobacco Use: Never Passive Exposure: Not on file Alcohol Use: Not on file Financial Resource Strain: Not on file Food Insecurity: Not on file Transportation Needs: Not on file Physical Activity: Not on file Stress: Not on file Social Connections: Not on file Intimate Partner Violence: Not on file Depression: Not on file Housing Stability: Not on file Allergies: Allergies Allergen Reactions Sertraline shaking Weight: 70.3kg Visit Vitals Ht 1.626 m (5' 4 ) Wt 70.3 kg (155 lb) BMI 26.61 kg/m??? OB Status Postmenopausal Smoking Status Never BSA 1.78 m??? Meds: Current Outpatient Medications on File Prior to Visit Medication Sig Dispense Refill ALPRAZolam (Xanax) 0.25 mg tablet Take 0.25 mg by mouth. amiodarone (Pacerone) 200 mg tablet Take 2 tablets (400 mg) by mouth in the morning and at bedtime for 14 days, THEN 1 tablet (200 mg) in the morning. (Patient taking differently: 200mg once daily) 146 tablet 0 atorvastatin (Lipitor) 40 mg tablet Take 40 mg by mouth in the evening. calcium carbonate-vitamin D3 600 mg-5 mcg (200 unit) tablet Take by mouth. dilTIAZem CD (Cardizem CD) 240 mg 24 hr capsule Take 1 capsule (240 mg) by mouth in the morning. 30 capsule 1 Eliquis 5 mg tablet Take 5 mg by mouth in the morning and at bedtime. glimepiride (Amaryl) 2 mg tablet Take 2 mg by mouth before breakfast. hydroCHLOROthiazide (HYDRODiuril) 25 mg tablet Take 25 mg by mouth in the morning. insulin glargine (Lantus) 100 unit/mL injection vial Inject under the skin at bedtime. 10 units lisinopril 20 mg tablet Take 20 mg by mouth in the morning. Trulicity 0.75 mg/0.5 mL pen injector INJECT 0.5ML SUBCUTANEOUSLY ONCE A WEEK ON WEDNESDAY insulin lispro (HumaLOG) 100 unit/mL injection Inject 4-14 Units under the skin with breakfast, with lunch, and with evening meal. omeprazole (PriLOSEC) [address] capsule Take 10 mg by mouth before breakfast. No current facility-administered medications on file prior to visit. ROS: Review of Systems Constitutional: Positive for malaise/fatigue. Cardiovascular: Positive for irregular heartbeat and palpitations (improving, not as often). Hematologic/Lymphatic: Bruises/bleeds easily. Musculoskeletal: Positive for arthritis and joint pain. Neurological: Positive for loss of balance. All other systems reviewed and are negative. Physical Exam: Constitutional General Appearance: well-nourished, well-developed, appears stated age Level of Distress: comfortable Psychiatric Mental Status: alert, normal affect Orientation: oriented to time, place, and person Insight: good judgement Eyes Lids and Conjunctivae: non-injected, no xanthelasma ENMT Ears: no lesions on external ear Nose: no lesions on external nose Oropharynx: no cyanosis, no pallor Neck Neck: supple, trachea midline (more content not included)...[facility]* Encounter Date Diagnosis Assessment Notes Treatment Notes Treatment Clinical Notes Oct, Type 2 diabetes mellitus with hyperglycemia, without long-term current use of insulin (ICD-10 - E11.65) This patient is following a comprehensive diabetic treatment plan. They are checking their feet daily for calluses and nonhealing ulcers. They are being seen for yearly dilated eye examinations. Goals: SBP less than 130, LDL less than 100, FBS less than 140, A1C less than 7%. They are checking their BS daily, will which are reviewed at the office visit. Continue regular routine monitoring of A1C,] Microalbumin, Dilated eye exam and Foot exam Oct, Stage 3b chronic kidney disease (ICD-10 - N18.32) The patient is instructed on adequate control of hypertension and diabetes, if appropriate. They are also educated on the associated risks of NSAIDs and PPI use with kidney disease. They were instructed on adequate fluid balance and to avoid dehydration. Oct, Primary hypertension (ICD-10 - I10) This patient is instructed to consume a healthy, low-fat, low-salt diet. They are also encouraged to continue exercise to achieve/maintain a normal BMI. Oct, Paroxysmal atrial fibrillation (ICD-10 - I48.0) This patient is in NSR or rate controlled. This patient is anticoagulated to prevent thromboembolic events. They are maintaining regular scheduled appts with their manager bilingual. Oct, Other postprocedural complications and disorders of genitourinary system (ICD-10 - N99.89) Oct, Other retention of urine (ICD-10 - R33.8) PVR > 1000 after which han was placed. She was treated for UTI and han removed d/c antispasmotic due to anticholinergic side effects May require referral to [employer] Other 12-07-2023 Evaluation note* Encounter Date Diagnosis Assessment Notes Treatment Notes Treatment Clinical Notes Oct, Type 2 diabetes mellitus with hyperglycemia, without long-term current use of insulin (ICD-10 - E11.65) Adjusted ISS and continue basal insulin Continue accu cheks AC and HS Health diet and increase activity Oct, Stage 3b chronic kidney disease (ICD-10 - N18.32) The patient is instructed on adequate control of hypertension and diabetes, if appropriate. They are also educated on the associated risks of NSAIDs and PPI use with kidney disease. They were instructed on adequate fluid balance and to avoid dehydration. Oct, Primary hypertension (ICD-10 - I10) This patient is instructed to consume a healthy, low-fat, low-salt diet. They are also encouraged to continue exercise to achieve/maintain a normal BMI. Oct, Paroxysmal atrial fibrillation (ICD-10 - I48.0) This patient is in NSR or rate controlled. This patient is anticoagulated to prevent thromboembolic events. They are maintaining regular scheduled appts with their manager bilingual. Today was in NSR Oct, Acute cystitis without hematuria (ICD-10 - N30.00) Empirically treating w/ Urine C/S pending PVR [facility] [employer] Other 11-30-2023 NoteDIRECT CARDIOVERSION PROCEDURE NOTE Date: 10/21/2023. Type of procedure: DC Cardioversion. Performed by: Santiago Trinidad MD SHANK SKINNER: Dr Gela Nowak Informed consent: Signed by patient. Indication: 78 year old with past medical history of A-fib, type 2 diabetes without insulin use, hypertension, left breast cancer, hyperlipidemia, essential tremor, SHIRA, anxiety, osteoporosis, stage IIIb kidney disease was found to be in A-fib and has history of A-fib. Around May 11, 2023 she was started on Eliquis per Holter monitor finding showing A-fib. She had Lexiscan stress test 11/20/2021 which showed no acute or reversible ischemia, stable/mild anterior wall fixed perfusion defect versus breast attenuation, normal wall motion ejection fraction. Echo 05/12/2022 showed normal LVEF 70 to 75%, grade 1 diastolic dysfunction, LA moderately dilated, RVSP 30 mmHg, mild aortic regurgitation. She had Holter monitor 12/2022 which showed A-fib as the predominant rhythm with heart rate up to 139 bpm. She had been on uninterrupted anticoagulation for minimum of 6 weeks and placed on Amiodaorne. Hence, NINA was deferred. Preparation and technique: Patient was brought into the procedure room. After an informed consent was obtained following a discussion with the patient where I explained the risk and benefit of the procedure that is not limited to skin avilez, fluid in the lungs, heart attack, stroke, or even , though that is very rare. Patches were placed in anteroposterior direction and once patient was made comfortable with Versed 2mg and Fentanyl 25mcg. Following sedation, the patient underwent synchronized cardioversion using 360J which converted to sinus rhythm. Post procedure, the patient was stable. No complications noted. Plan: Continue anticoagulation and consider ablation. Santiago Trinidad MD [facility] Patient: Fatuma Mena Procedure Information Date/Time: 10/21/23 1040 Procedure: Cardioversion - TO BE DONE END OF SEPTEMBER BEFORE THANKSGIVING Location: [facility] HOLDING RO[facility] / [facility] (Cath) Providers: Santiago Trinidad MD Clinical information reviewed: Allergies Meds OB Status Physical Exam Airway Mallampati: III Cardiovascular Rhythm: irregular Rate: normal Dental Pulmonary Breath sounds clear to auscultation Abdominal Anesthesia Plan ASA 3 CSE (Conscious Sedation) intravenous induction Anesthetic plan and risks discussed with patient. Use of blood products discussed with patient who consented to blood products. Plan discussed with attending. [facility]* Encounter Date Diagnosis Assessment Notes Treatment Notes Treatment Clinical Notes Sep, Acute pyelonephritis (ICD-10 - N10) Completing treatment w/ appropriate antibiotics. Afebrile w/ normalization of leukocytosis. No s/s ongoing infection Monitor for now. Sep, Type 2 diabetes mellitus with hyperglycemia, without long-term current use of insulin (ICD-10 - E11.65) Uncontrolled, requiring treatment adjustments. - initiate basal insulin w/ Lantus - initiate pre meal insulin per SS Accu checks AC Goal is < 200 Sep, Persistent atrial fibrillation (ICD-10 - I48.19) This patient is in NSR or rate controlled. This patient is anticoagulated to prevent thromboembolic events. They are maintaining regular scheduled appts with their manager bilingual. No acute bleeding at this time Sep, Stage 3b chronic kidney disease (ICD-10 - N18.32) The patient is instructed on adequate control of hypertension and diabetes, if appropriate. They are also educated on the associated risks of NSAIDs and PPI use with kidney disease. They were instructed on adequate fluid balance and to avoid dehydration. Sep, Primary hypertension (ICD-10 - I10) This patient is instructed to consume a healthy, low-fat, low-salt diet. They are also encouraged to continue exercise to achieve/maintain a normal BMI. Sep, Other postprocedural complications and disorders of genitourinary system (ICD-10 - N99.89) Sep, Other retention of urine (ICD-10 - R33.8) Han in place. Urinary retention likely cause of pyelonephritis Opiates likely cause of urinary retention Complete antibiotics, recheck urine and if clear will remove han [employer] Other [id number] Evaluation note* Encounter Date Diagnosis Assessment Notes Treatment Notes Treatment Clinical Notes Sep, Acute pyelonephritis (ICD-10 - N10) Push fluids, monitor response, if no improvement would treat parenterally. Keep han in place for now. Sep, Stage 3b chronic kidney disease (ICD-10 - N18.32) The patient is instructed on adequate control of hypertension and diabetes, if appropriate. They are also educated on the associated risks of NSAIDs and PPI use with kidney disease. They were instructed on adequate fluid balance and to avoid dehydration. Sep, Persistent atrial fibrillation (ICD-10 - I48.19) This patient is in NSR or rate controlled. This patient is anticoagulated to prevent thromboembolic events. They are maintaining regular scheduled appts with their manager bilingual. No ongoing bleeding complications Sep, Type 2 diabetes mellitus with hyperglycemia, without long-term current use of insulin (ICD-10 - E11.65) This patient is following a comprehensive diabetic treatment plan. They are checking their feet daily for calluses and nonhealing ulcers. They are being seen for yearly dilated eye examinations. Goals: SBP less than 130, LDL less than 100, FBS less than 140, A1C less than 7%. They are checking their BS daily, will which are reviewed at the office visit. Continue regular routine monitoring of A1C,] Microalbumin, Dilated eye exam and Foot exam Sep, Closed fracture of right hip with routine healing, subsequent encounter (ICD-10 - S72.001D) Continue PT/OT, f/u Orthopedics Sep, Acute blood loss anemia (ICD-10 - D62) Monitor H/H, transfuse for Hgb < 7.5gm Sep, Other postprocedural complications and disorders of genitourinary system (ICD-10 - N99.89) Sep, Other retention of urine (ICD-10 - R33.8) Han placed for now w/ plan to d/c as soon as infection cleared and less dependent on opiates. Sep, Primary hypertension (ICD-10 - I10) This patient is instructed to consume a healthy, low-fat, low-salt diet. They are also encouraged to continue exercise to achieve/maintain a normal BMI. Sep, Hyperlipidemia, mixed (ICD-10 - E78.2) Instructed on diet and exercise with continued statin therapy.Discussed the beneficial effects of lowering cholesterol in reducing the risk for cerebrovascular and cardiovascular disease. Sep, MALIKA (generalized anxiety disorder) (ICD-10 - F41.1) Stable, continue medical therapy w/o change. Sep, Obstructive sleep apnea (ICD-10 - G47.33) This patient is aware of the benefits associated with SHIRA: With continued use, the patient reduces the risk for SC, CVA, HTN, cardiac dysrhythmias and sudden cardiac deaths.The patient is also aware of the association between SHIRA and morning headaches, daytime somnolence, fatigue and obesity, which also has been improved with continued use.The patient is compliant with treatment, wearing the equipment every night for greater than 4 hours.The patient is instructed to continue use of the CPAP for SHIRA treatment. [employer] Other 11-09-2023 Evaluation note* Encounter Date Diagnosis Assessment Notes Treatment Notes Treatment Clinical Notes Sep, Acute blood loss anemia (ICD-10 - D62) [employer] Other 11-09-2023 Evaluation note* Encounter Date Diagnosis Assessment Notes Treatment Notes Treatment Clinical Notes Sep, MALIKA (generalized anxiety disorder) (ICD-10 - F41.1) [employer] Other 11-08-2023 NotePROCEDURE: XR ABDOMEN (KUB) (SINGLE AP VIEW) CLINICAL INFORMATION: Constipation. COMPARISON: No prior study. TECHNIQUE: 2 AP views of the abdomen were obtained in the supine position FINDINGS: There is a right total hip arthroplasty. There is a large amount retained stool the colon. There are no distended bowel loops. There are no displaced bowel loops. There is no gross free air.No suspicious densities are present. There are degenerative changes in the spine. There is a right total hip arthroplasty. IMPRESSION: 1. Findings of constipation. 2. Nonobstructive bowel gas pattern. This report has been created using voice recognition software. It may contain minor errors which are inherent in voice recognition technology. Final report electronically signed by Dr Rinku Jarvis on 09/29/2023 3:15 PM Interpreted by: Rinku Jarvis MD Signed by: Rinku Jarvis MD 09/29/[address] [facility] NotePROCEDURE: XR FEMUR RIGHT (MIN 2 VIEWS) CLINICAL INFORMATION: ORIf . COMPARISON: No prior study. TECHNIQUE: 4 views of the right femur in the OR.. Cumulative air Kerma on measures 6.4810 mGy FINDINGS: There is an intramedullary nancy in the right femur. There is a transverse screw in the distal femoral metaphysis. There is lucency in the midshaft of the right femur. IMPRESSION: 1. Status post open reduction and internal fixation of the right femoral shaft fracture. This report has been created using voice recognition software. It may contain minor errors which are inherent in voice recognition technology. Final report electronically signed by DR SHEREEN CUNHA on 09/25/2023 11:40 AM Interpreted by: Shereen Cunha MD Signed by: Shereen Cunha MD 09/25/23 [facility]* Encounter Date Diagnosis Assessment Notes Treatment Notes Treatment Clinical Notes Sep, COVID (ICD-10 - U07.1) [employer] Other 10-24-2023 NoteUT Electrophysiology Consult Note: Reason for visit: Afib HPI: Fatuma Mena is a 78 y.o. year old with past medical history of Type 2 diabetes mellitus, hypertension, left breast cancer, hyperlipidemia, SHIRA, CKD stage III who was previously seen by Karlee CASTILLO for A-fib and also for cardiac clearance. Previously she was seen by her PCP who found her to be in A-fib and in May 11, 2023 she was started on Eliquis when a Holter monitor had revealed the presence of A-fib. At that time she was placed on Coreg 12.5 mg twice daily which was subsequently increased to 25 twice daily as she had rapid ventricular rate. Subsequent Lexiscan stress test on 11/20/2021 showed no reversible ischemia but fixed defect in the mid anterior wall with underlying normal wall motion and normal EF. Subsequent echocardiogram in May 13 revealed normal EF and left atrium was noted to be moderately dilated Holter monitor in December 2022 again showed A-fib to be the predominant rhythm with a ventricular rate noted to be as elevated as 139 bpm. She mentions that she notices shortness of breath when she is in A-fib. She has not been previously cardioverted. Her beta-jhon dosing was changed to Cardizem 240 once daily by Karlee CASTILLO but she continues to have high ventricular rate. she is extremely fatigued and tired and initially attributed this to her postoperative. She continues to be in A-fib with rapid ventricular rate ranging from 120- 125 beats a minute EKG 09/14/2023 atrial fibrillation with rapid ventricular rate PMH: Past Medical History: Diagnosis Date Abnormal ECG Arrhythmia Atrial fibrillation (CMS/HCC) Diabetes mellitus (CMS/HCC) Hypertension PSH: Past Surgical History: Procedure Laterality Date HYSTERECTOMY MASTECTOMY, PARTIAL TUBAL LIGATION SH: Social Determinants of Health Tobacco Use: Low Risk (07/13/2023) Patient History Smoking Tobacco Use: Never Smokeless Tobacco Use: Never Passive Exposure: Not on file Alcohol Use: Not on file Financial Resource Strain: Not on file Food Insecurity: Not on file Transportation Needs: Not on file Physical Activity: Not on file Stress: Not on file Social Connections: Not on file Intimate Partner Violence: Not on file Depression: Not on file Housing Stability: Not on file Allergies: Allergies Allergen Reactions Sertraline shaking Weight: 67.6kg Visit Vitals BP 111/67 (BP Location: Right arm, Patient Position: Sitting) Pulse 110 Ht 1.626 m (5' 4 ) Wt 67.6 kg (149 lb) SpO2 98% BMI 25.58 kg/m??? Smoking Status Never BSA 1.75 m??? Meds: Current Outpatient Medications on File Prior to Visit Medication Sig Dispense Refill ALPRAZolam (Xanax) 0.25 mg tablet Take 0.25 mg by mouth. atorvastatin (Lipitor) 40 mg tablet Take 40 mg by mouth in the evening. calcium carbonate-vitamin D3 600 mg-5 mcg (200 unit) tablet Take by mouth. dilTIAZem CD (Cardizem CD) 240 mg 24 hr capsule Take 1 capsule (240 mg) by mouth in the morning. 30 capsule 1 Eliquis 5 mg tablet Take 5 mg by mouth in the morning and at bedtime. glimepiride (Amaryl) 2 mg tablet 3 mg. hydroCHLOROthiazide (HYDRODiuril) 25 mg tablet Take 25 mg by mouth in the morning. lisinopril 20 mg tablet Take 20 mg by mouth in the morning. omeprazole (PriLOSEC) [address] capsule Take 10 mg by mouth. oxybutynin XL (Ditropan-XL) 10 mg 24 hr tablet Take 10 mg by mouth at bedtime. Trulicity 0.75 mg/0.5 mL pen injector INJECT 1 SUBCUTANEOUSLY ONCE A WEEK No current facility-administered medications on file prior to visit. ROS: Review of Systems Constitutional: Positive for malaise/fatigue. Cardiovascular: Positive for irregular heartbeat and palpitations (improving, not as often). Hematologic/Lymphatic: Bruises/bleeds easily. Musculoskeletal: Positive for arthritis and joint pain. Neurological: Positive for loss of balance. All other systems reviewed and are negative. Physical Exam: Constitutional General Appearance: well-nourished, well-developed, appears stated age Level of Distress: comfortable Psychiatric Mental Status: alert, normal affect Orientation: oriented to time, place, and person Insight: good judgement Eyes Lids and Conjunctivae: non-injected, no xanthelasma ENMT Ears: no lesions on external ear Nose: no lesions on external nose Oropharynx: no cyanosis, no pallor Neck Neck: supple, trachea midline Carotid Arteries: bilateral normal upstroke, no bruits Jugular Veins: normal jugular venous pressure Thyroid: not enlarged Lungs Respiratory Effort: unlabored Chest Exam: normal curvature, no thoracic deformity Auscultation: clear, no wheezing, no rales, no rhonchi Cardiovascular Rate And Rhythm: irregular and tachycardia Heart Sounds: normal S1, normal s2, no gallop Systolic Murmur: not heard Diastolic Murmur: not heard Extremities: no cyanosis, no edema, no peripheral signs of emboli Peripheral Pulses Radial P (more content not included)...[facility] 08-30-2023 Evaluation note* Encounter Date Diagnosis Assessment Notes Treatment Notes Treatment Clinical Notes Aug, Acute bronchitis due to other specified organisms (ICD-10 - J20.8) Instructed to use Robitussin or Mucinex for cough, saline or Flonase NS for congestion, Tylenol for pain and fever. Aug, Type 2 diabetes mellitus with hyperglycemia, without long-term current use of insulin (ICD-10 - E11.65) BS may increase w/ acute illness, no need to alter treatment, will resolve once infection treated Aug, Suspected COVID-19 virus infection (ICD-10 - Z20.822) Instructed to test for COVID and call w/ results [employer] Other 09-20-2023 Evaluation note* Encounter Date Diagnosis Assessment Notes Treatment Notes Treatment Clinical Notes Jul, Type 2 diabetes mellitus with hyperglycemia, without long-term current use of insulin (ICD-10 - E11.65) [employer] Other 08-28-2023 Evaluation note* Encounter Date Diagnosis Assessment Notes Treatment Notes Treatment Clinical Notes Jun, Preop exam for internal medicine (ICD-10 - Z01.818) Mrs. Mena has been seen and examined for her preoperative evaluation. She was instructed to hold her Glimepiride and HCTZ on the day of surgery. She was instructed to hold her GLP-1 antagonist (Trulicity) the week of surgery. She was instructed to hold her Eliquis for 3 days prior to surgery. Jun, Stage 3b chronic kidney disease (ICD-10 - N18.32) Stable Maintain adequate hydration and minimize use of NSAIDs. Jun, Persistent atrial fibrillation (ICD-10 - I48.19) Rate control w/ Diltiazem. Add Metoprolol if needed for breakthrough tachycardia. Anticoagulation with Eliquis will be held for 3 days prior to surgery and restarted TANMAY. Jun, Type 2 diabetes mellitus with hyperglycemia, without long-term current use of insulin (ICD-10 - E11.65) Monitor BS and treat with ISS coverage as needed. Hold Glimepiride the day of surgery to avoid hypoglycemia. Jun, Primary hypertension (ICD-10 - I10) Stable Continue medication, except for HCTZ, without interruption. Jun, Hyperlipidemia, mixe d (ICD-10 - E78.2) Stable Continue medication without interruption Jun, MALIKA (generalized anxiety disorder) (ICD-10 - F41.1) Stable w/ treatment. Jun, Gastroesophageal reflux disease with esophagitis without hemorrhage (ICD-10 - K21.00) Stable Continue GERD precautions Continue PPI w/o interruption [employer] Other 08-25-2023 Evaluation note* Encounter Date Diagnosis Assessment Notes Treatment Notes Treatment Clinical Notes Jun, Persistent atrial fibrillation (ICD-10 - I48.19) [employer] Other 08-04-2023 Evaluation note* Encounter Date Diagnosis Assessment Notes Treatment Notes Treatment Clinical Notes Jun, Dysuria (ICD-10 - R30.0) [employer] Other 07-31-2023 Evaluation note* Encounter Date Diagnosis Assessment Notes Treatment Notes Treatment Clinical Notes May, Dysuria (ICD-10 - R30.0) [employer] Other 06-20-2023 Evaluation note* Encounter Date Diagnosis Assessment Notes Treatment Notes Treatment Clinical Notes Apr, Type 2 diabetes mellitus with hyperglycemia, without long-term current use of insulin (ICD-10 - E11.65) This patient is following a comprehensive diabetic treatment plan. They are checking their feet daily for calluses and nonhealing ulcers. They are being seen for yearly dilated eye examinations. Goals: SBP less than 130, LDL less than 100, FBS less than 140, AC and A1C less than 7%. They are checking their BS daily, will which are reviewed at the office visit. Continue regular routine monitoring of A1C,] Microalbumin, Dilated eye exam and Foot exam Apr, Persistent atrial fibrillation (ICD-10 - I48.19) This patient is rate controlled. This patient is anticoagulated to prevent thromboembolic events. No bleeding complications. No s/s CHF Apr, Stage 3b chronic kidney disease (ICD-10 - N18.32) The patient is instructed on adequate control of hypertension and diabetes, if appropriate. They are also educated on the associated risks of NSAIDs and PPI use with kidney disease. They were instructed on adequate fluid balance and to avoid dehydration. Apr, Essential hypertension (ICD-10 - I10) This patient is instructed to consume a healthy, low-fat, low-salt diet. They are also encouraged to continue exercise to achieve/maintain a normal BMI. Apr, Obstructive sleep apnea (ICD-10 - G47.33) This patient is aware of the benefits associated with SHIRA: With continued use, the patient reduces the risk for SC, CVA, HTN, cardiac dysrhythmias and sudden cardiac deaths.The patient is also aware of the association between SHIRA and morning headaches, daytime somnolence, fatigue and obesity. She was tested several years ago and informed that she was mild and didn't require treatment. She has never used PAP Apr, Hyperlipidemia, mixe d (ICD-10 - E78.2) Instructed on diet and exercise with continued statin therapy.Discussed the beneficial effects of lowering cholesterol in reducing the risk for cerebrovascular and cardiovascular disease. Apr, Subclinical hyperthyroidism (ICD-10 - E05.90) Recheck TSH, FT4, TT3 and TSI [employer] Other 05-30-2023 Evaluation note* Encounter Date Diagnosis Assessment Notes Treatment Notes Treatment Clinical Notes March, Primary osteoarthritis of left knee (ICD-10 - M17.12) Quad exercises, ice, Voltaren Gel and rest. Avoid squatting or kneeling. Advise against IA injection due to receiving injection in March. March, Primary osteoarthritis of right hip (ICD-10 - M16.11) Scheduled to have GILBERTO. Will send for Orthopedic notes March, Type 2 diabetes mellitus with hyperglycemia, without long-term current use of insulin (ICD-10 - E11.65) [employer] Other 05-15-2023 Evaluation note* Encounter Date Diagnosis Assessment Notes Treatment Notes Treatment Clinical Notes March, MALIKA (generalized anxiety disorder) (ICD-10 - F41.1) [employer] Other 03-22-2023 Evaluation note* Encounter Date Diagnosis Assessment Notes Treatment Notes Treatment Clinical Notes Jan, Dysuria (ICD-10 - R30.0) [employer] Other 03-20-2023 Evaluation note* Encounter Date Diagnosis Assessment Notes Treatment Notes Treatment Clinical Notes Jan, Abnormal TSH (ICD-10 - R79.89) Jan, Thyrotoxicosis without thyroid storm, unspecified thyrotoxicosis type (ICD-10 - E05.90) [employer] Other 03-20-2023 Evaluation note* Encounter Date Diagnosis Assessment Notes Treatment Notes Treatment Clinical Notes Jan, Medicare annual wellness visit, subsequent (ICD-10 - Z00.00) Personalized health advice was given to the beneficiary including a written plan for screenings discussed and provided. Advanced care planning reviewed and/or information given as requested. Additional counseling was provided here today in regards to, [ ]. The above visit was performed by [ ], under direct supervision of [ ]. Document reviewed and amended by provider signed below. Healthy diet and exercise. Reviewed age-appropriate preventive testing recommended. Jan, Persistent atrial fibrillation (ICD-10 - I48.19) This patient is rate controlled. This patient is anticoagulated to prevent thromboembolic events. They are maintaining regular scheduled appts with their manager bilingual. No bleeding complications Refer to Cardiology for discussion on rate vs rhythm control Jan, Essential hypertension (ICD-10 - I10) This patient is instructed to consume a healthy, low-fat, low-salt diet. They are also encouraged to continue exercise to achieve/maintain a normal BMI. Jan, Hyperlipidemia, mixed (ICD-10 - E78.2) Diet and exercise with continued statin therapy. Jan, Type 2 diabetes mellitus with diabetic polyneuropathy, without long-term current use of insulin (ICD-10 - E11.42) This patient is following a comprehensive diabetic treatment plan. They are checking their feet daily for calluses and nonhealing ulcers. They are being seen for yearly dilated eye examinations. Goals: SBP less than 130, LDL less than 100, FBS less than 140, AC and A1C less than 7%. They are checking their BS daily, will which are reviewed at the office visit. Jan, Type 2 diabetes mellitus with hyperglycemia, without long-term current use of insulin (ICD-10 - E11.65) Inspect feet daily for cuts and calluses.Recommend diabetic shoes and inserts to prevent callus formation.Fall precautions. Jan, MALIKA (generalized anxiety disorder) (ICD-10 - F41.1) Healthy diet and keep active Jan, Screening mammogram for breast cancer (ICD-10 - Z12.31) UTD w/ mammogram Jan, Osteopenia of left hip (ICD-10 - M85.852) Ca and Vitamin D daily Exercise Jan, High risk medication use (ICD-10 - Z79.899) [employer] Other 03-13-2023 Evaluation note* Encounter Date Diagnosis Assessment Notes Treatment Notes Treatment Clinical Notes Jan, Persistent atrial fibrillation (ICD-10 - I48.19) [employer] Other 03-07-2023 Evaluation note* Encounter Date Diagnosis Assessment Notes Treatment Notes Treatment Clinical Notes Jan, Acute pain of right knee (ICD-10 - M25.561) Ice/heat and Tylenol. IA injection w/ 40mg Kenalog and 3ml Xylocaine given using sterile technique w/o complications. Jan, Primary osteoarthritis of right knee (ICD-10 - M17.11) Quad exercises, avoid squatting or kneeling. Jan, Essential hypertension (ICD-10 - I10) This patient is instructed to consume a healthy, low-fat, low-salt diet. They are also encouraged to continue exercise to achieve/maintain a normal BMI. Jan, Right hip pain (ICD-10 - M25.551) Ice, heat and Voltaren Gel. 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 Recommend diabetic shoes and inserts to prevent formation of calluses. Fall precautions. Nov, Type 2 diabetes mellitus with hyperglycemia, without long-term current use of insulin (ICD-10 - E11.65) This patient is following a comprehensive diabetic treatment plan. They are checking their feet daily for calluses and nonhealing ulcers. They are being seen for yearly dilated eye examinations. Goals: SBP less than 130, LDL less than 100, FBS less than 140, AC and A1C less than 7%. They are checking their BS daily, will which are reviewed at the office visit. A1C: [ ] Microalbumin: [ ] Eye exam: [ ] Foot exam: [ ] Nov, Essential hypertensi on (ICD-10 - I10) This patient is instructed to consume a healthy, low-fat, low-salt diet. They are also encouraged to continue exercise to achieve/maintain a normal BMI. Nov, Hyperlipidemia, mixe d (ICD-10 - E78.2) Diet and exercise with continued statin therapy. Nov, Intermittent palpitations (ICD-10 - R00.2) Avoid stimulants. Holter monitor scheduled. Echocardiogram and Stress test completed in October w/ normal results Nov, Obstructive sleep apnea (ICD-10 - G47.33) This patient is aware of the benefits associated with SHIRA: With continued use, the patient reduces the risk for SC, CVA, HTN, cardiac dysrhythmias and sudden cardiac deaths.The patient is also aware of the association between SHIRA and morning headaches, daytime somnolence, fatigue and obesity, which also has been improved with continued use.The patient is compliant with treatment, wearing the equipment every night for greater than 4 hours.The patient is instructed to continue use of the CPAP for SHIRA treatment. Nov, Essential tremor (ICD-10 - G25.0) Avoid stimulants Nov, Gastroesophageal reflux disease with esophagitis without hemorrhage (ICD-10 - K21.00) Diet instructions: Smaller portions, avoid eating and laying flat, avoid eating or drinking prior to bedtime. Weight loss. Nov, MALIKA (generalized anxiety disorder) (ICD-10 - F41.1) Healthy diet, exercise and keep active. Xanax as needed. Nov, Overweight (ICD-10 - E66.3) This patient has been instructed on a low-fat, high-fiber diet. They are instructed to reduce calories, portion sizes and snacks. It is recommended that they exercise for 30 minutes, 3-5 times weekly. [employer] Other 11-10-2022 NotePROCEDURE: XR KNEE RT 3V HISTORY: Idiopathic osteoarthritis ; chronic right knee pain COMPARISON: None. FINDINGS: BONES:Complete loss of the medial joint space with [id number] articulation prominent periarticular degenerative osteophytes. Moderate narrowing of the anterior compartment. No appreciable narrowing of the lateral joint space. SOFT TISSUES:Calcium deposition within the lateral meniscus. EFFUSION:None visible. OTHER: Negative. IMPRESSION: 1. Marked degenerative joint disease predominantly involving the medial compartment. 2. No acute bone abnormality. Electronically authenticated by: CHING DANGELO Date: 2022-10-01 08:09[facility] [employer] Other Evaluation note* Diagnosis Onset Date Resolution Status Essential hypertension acute MALIKA (generalized anxiety disorder) acute GERD (gastroesophageal reflux disease) acute Hyperlipidemia, mixed acute Obstructive sleep apnea acut e Paroxysmal atrial fibrillation acute Stage 3b chronic kidney disease acute Subclinical hyperthyroidism acute Type 2 diabetes mellitus wit h diabetic polyneuropathy acute Type 2 diabetes mellitus with hyperglycemia acute Medicare annual wellness visit, subsequent noneactive Screening mammogram for breast cancer noneactive [facility] Work Phone: Evaluation note* Diagnosis Onset Date Resolution Status Essential hypertension acute MALIKA (generalized anxiety disorder) acute GERD (gastroesophageal reflux disease) acute Hyperlipidemia, mixed acute Obstructive sleep apnea acut e Paroxysmal atrial fibrillation acute Stage 3b chronic kidney disease acute Subclinical hyperthyroidism acute Type 2 diabetes mellitus wit h diabetic polyneuropathy acute Type 2 diabetes mellitus with hyperglycemia acute Medicare annual wellness visit, subsequent noneactive Screening mammogram for breast cancer noneactive Essential hypertension acute Hyperlipidemia, mixed acute Paroxysmal atrial fibrillation acute Stage 3b chronic kidney disease acute Subclinical hyperthyroidism acute Type 2 diabetes mellitus wit h diabetic polyneuropathy acute Type 2 diabetes mellitus with hyperglycemia acute Screening mammogram for breast cancer noneactive [facility] Work Phone: Evaluation note* Diagnosis Onset Date Resolution Status Essential hypertension acute Hyperlipidemia, mixed acute Paroxysmal atrial fibrillation acute Stage 3b chronic kidney disease acute Subclinical hyperthyroidism acute Type 2 diabetes mellitus with diabetic polyneuropathy acute Type 2 diabetes mellitus with hyperglycemia acute [facility] Work Phone: Evaluation note* Diagnosis Onset Date Resolution Status COVID acute Essential hypertension acute GERD (gastroesophageal reflux disease) acute Hyperlipidemia, mixed acute Hypothyroid acute Paroxysmal atrial fibrillation acute Stage 3b chronic kidney disease acute Type 2 diabetes mellitus with diabetic polyneuropathy acute Type 2 diabetes mellitus with hyperglycemia acute [facility] Work Phone: evaluation note* Diagnosis Onset Date Resolution Status COVID acute Essential hypertension acute GERD (gastroesophageal reflux disease) acute Hypothyroid acute Paroxysmal atrial fibrillation acute Stage 3b chronic kidney disease acute Type 2 diabetes mellitus with diabetic polyneuropathy acute Type 2 diabetes mellitus with hyperglycemia acute [facility] Work Phone: Evaluation note* Diagnosis Pain of left foot- Primary Pain of right foot Callus Corns and callosities Pes planovalgus Other congenital valgus deformity of feet Acquired leg length discrepancy Unequal leg length (acquired) Tailor's bunion of left foot Valgus deformity of both great toes Hammer toes of both feet Plantar fat pad atrophy Other secondary osteoarthritis of both feet [facility] Diagnosis Leg length discrepancy Unequal leg length (acquired) documented in this encounter [facility] Narrative - Reported* Type Description Date Medical History Chronic fatigue Medical History Acute pain of right knee Medical History Primary osteoarthritis of right knee Medical History Intermittent palpitations Medical History Type 2 diabetes master itus with hyperglycemia, without long-term current use of insulin Medical History Obesity Medical History Essential hypertension Medical History Type 2 diabetes master itus with diabetic polyneuropathy, without long-term current use of insulin Medical History History of left breast cancer Medical History Low back pain, non-specific Medical History Dyspnea on exertion Medical History Mid back pain Medical History [place] Medical History Osteopenia of left hip Medical History Post-menopausal Medical History Urge incontinence Medical History Essential tremor Medical History High risk medication use Medical History Hyperlipidemia, mixed Medical History Gastroesophageal ref lux disease with esophagitis without hemorrhage Medical History Obstructive sleep apnea Medical History MALIKA (generalized anxiety disorde r) Medical History Dysuria Medical History Uterine prolapse Medical History Osteoporosis, senile Surgical History COLONOSCOPY Surgical History LEFT BREAST LUMPECTOMY AND AXIL ROBERT Surgical History LN DISSECTION Surgical History RADHA/BSO, A/P REPAIR, TVT REPLAC ED 2012 Surgical History CATARACTS Surgical History HYSTERECTOMY UtiliData Other Hisiuhz general Narrative - Reported* Type Description Date Medical History Chronic fatigue Medical History Acute pain of right knee Medical History Primary osteoarthritis of right knee Medical History Intermittent palpitations Medical History Type 2 diabetes master itus with hyperglycemia, without long-term current use of insulin Medical History Obesity Medical History Essential hypertension Medical History Type 2 diabetes master itus with diabetic polyneuropathy, without long-term current use of insulin Medical History History of left breast cancer Medical History Low back pain, non-specific Medical History Dyspnea on exertion Medical History Mid back pain Medical History Palpitation Medical History Osteopenia of left hip Medical History Post-menopausal Medical History Urge incontinence Medical History Essential tremor Medical History High risk medication use Medical History Hyperlipidemia, mixed Medical History Gastroesophageal ref lux disease with esophagitis without hemorrhage Medical History Obstructive sleep apnea Medical History MALIKA (generalized anxiety disorde r) Medical History Dysuria Medical History Uterine prolapse Medical History Osteoporosis, senile Surgical History COLONOSCOPY Surgical History LEFT BREAST LUMPECTOMY AND AXIL ROBERT Surgical History LN DISSECTION Surgical History RADHA/BSO, A/P REPAIR, TVT REPLAC ED 2011 Surgical History CATARACTS Surgical History HYSTERECTOMY Hospitalization History see surgical history UtiliData Other History general Narrative - Reported* Type Description Date Medical History Chronic fatigue Medical History Acute pain of right knee Medical History Primary osteoarthritis of right knee Medical History Intermittent palpitations Medical History Type 2 diabetes master itus with hyperglycemia, without long-term current use of insulin Medical History Obesity Medical History Essential hypertension Medical History Type 2 diabetes master itus with diabetic polyneuropathy, without long-term current use of insulin Medical History History of left breast cancer Medical History Low back pain, non-specific Medical History Dyspnea on exertion Medical History Mid back pain Medical History [place]pitation Medical History Osteopenia of left hip Medical History Post-menopausal Medical History Urge incontinence Medical History Essential tremor Medical History High risk medication use Medical History Hyperlipidemia, mixed Medical History Gastroesophageal ref lux disease with esophagitis without hemorrhage Medical History Obstructive sleep apnea Medical History MALIKA (generalized anxiety disorde r) Medical History Dysuria Medical History Uterine prolapse Medical History Osteoporosis, senile Medical History Right femoral shaft fx Surgical History COLONOSCOPY Surgical History LEFT BREAST LUMPECTOMY AND AXIL ROBERT Surgical History LN DISSECTION Surgical History RADHA/BSO, A/P REPAIR, TVT REPLAC ED 2011 Surgical History CATARACTS Surgical History HYSTERECTOMY Surgical History Intramedullary stabilization ri ght femoral shaft 09/2023 Hospitalization History see surgical history UtiliData Other Summary Purpose Family History No Family History Records Found Relationship Condition Age at Onset Recorded Date/T jaime father Unknown Not Specified Unknown Relationship Condition Age at Onset Recorded Date/T jaime father Unknown mother Unknown Advance Directives No Advanced Directives Records Found Advance Directive Response Recorded Date/ Time Advance Directives No December 15, 2023 10:05am Advance Directive Response Recorded Date/ Time Advance Directives No December 15, 2023 9:05am Documents on File Type Date Recorded Patient Rn Charge Expl anation ACP-Advance Directive 10/07/2023 3:40 AM Date Activated Date Inactivated Comments 09/25/2023 2:16 AM 09/30/2023 2:39 PM Date Activated Date Inactivated Comments 01/20/2013 3:36 PM 01/20/2013 6:36 PM Reason for Referral Reason New onset atrial fib rillation Diagnosis 1 Persistent atrial fi brillation (I48.19) Referral Organization [facility] Taty galarza Referring Provider First Name Harsha Referring Provider Last Name Kamran Referring Provider Specialty Internal Me nhung Referred Organization [facility] Referred Provider Mirian Beyer Referred Address [address], [place],[address] Referred Provider Specialty Cardiology Referral Priority Routine General Notes Fatuma is being refe rred for new onset atrial fibrillation. She denied chest pain, palpitations or lightheadedness. She denied orthopnea or PND. She did notice WANG and mild increase in peripheral edema. She was rate controlled with Carvedilol and Eliquis was initiated to prevent thromboembolic events. Fatuma is being referred to discuss options for restoring NSR. Clinical Notes Include latest labs, Echocardiogram and Stress testing. Chief Complaint and Reason for Visit Chief Complaint Shelter D/C Fol low Up Amb Documentation Medicare Wellness Reason for Visit Essential hypertensi on MALIKA (generalized anxiety disorder) GERD (gastroesophageal reflux disease) Hyperlipidemia, mixed Obstructive sleep apnea Paroxysmal atrial fibrillation Stage 3b chronic kidney disease Subclinical hyperthyroidism Type 2 diabetes mellitus with diabetic polyneuropathy Type 2 diabetes mellitus with hyperglycemia Medicare annual wellness visit, subsequent Screening mammogram for breast cancer Chief Complaint Amb Documentation Medicare Wellness sugar concerns Reason for Visit Essential hypertensi on MALIKA (generalized anxiety disorder) GERD (gastroesophageal reflux disease) Hyperlipidemia, mixed Obstructive sleep apnea Paroxysmal atrial fibrillation Stage 3b chronic kidney disease Subclinical hyperthyroidism Type 2 diabetes mellitus with diabetic polyneuropathy Type 2 diabetes mellitus with hyperglycemia Medicare annual wellness visit, subsequent Screening mammogram for breast cancer Essential hypertension Hyperlipidemia, mixed Paroxysmal atrial fibrillation Stage 3b chronic kidney disease Subclinical hyperthyroidism Type 2 diabetes mellitus with diabetic polyneuropathy Type 2 diabetes mellitus with hyperglycemia Screening mammogram for breast cancer Chief Complaint sugar concerns UA Reason for Visit Essential hypertensi on Hyperlipidemia, mixed Paroxysmal atrial fibrillation Stage 3b chronic kidney disease Subclinical hyperthyroidism Type 2 diabetes mellitus with diabetic polyneuropathy Type 2 diabetes mellitus with hyperglycemia Chief Complaint sugar concerns UA urinating pain Reason for Visit Essential hypertensi on Hyperlipidemia, mixed Paroxysmal atrial fibrillation Stage 3b chronic kidney disease Subclinical hyperthyroidism Type 2 diabetes mellitus with diabetic polyneuropathy Type 2 diabetes mellitus with hyperglycemia Chief Complaint UA urinating pain 3 month f/u Reason for Visit COVID Essential hypertension GERD (gastroesophageal reflux disease) Hyperlipidemia, mixed Hypothyroid Paroxysmal atrial fibrillation Stage 3b chronic kidney disease Type 2 diabetes mellitus with diabetic polyneuropathy Type 2 diabetes mellitus with hyperglycemia Chief Complaint urinating pain 3 month f/u flu shot Reason for Visit COVID Essential hypertension GERD (gastroesophageal reflux disease) Hypothyroid Paroxysmal atrial fibrillation Stage 3b chronic kidney disease Type 2 diabetes mellitus with diabetic polyneuropathy Type 2 diabetes mellitus with hyperglycemia Chief Complaint Admit Date CC Adult Risk Stratification October 102023 11:58am 3 month f/u October 16, 2024 2:02pm 3 month f/u January 03, 2025 1:54pm Reason for Visit Admit Date Essential hypertension October 16 2:02pm GERD (gastroesophageal reflux disease) N ov2023 2:02pm Hypothyroid October 16, 2024 2:02pm Paroxysmal atrial fibrillation October 16, 2024 2:02pm Stage 3b chronic kidney disease October 16, 2024 2:02pm Type 2 diabetes mellitus with diabetic p olyneuropathy October 16, 2024 2:02pm Type 2 diabetes mellitus with hyperglyce jose October 16, 2024 2:02pm Essential hypertension January 03 1:54pm GERD (gastroesophageal reflux disease) F ebruary 2024 1:54pm Hypothyroid January 03, 2025 1:54pm Paroxysmal atrial fibrillation January 03, 2025 1:54pm Stage 3b chronic kidney disease January 03, 2025 1:54pm Type 2 diabetes mellitus with diabetic p olyneuropathy January 03, 2025 1:54pm Type 2 diabetes mellitus with hyperglyce jose January 03, 2025 1:54pm Additional Source Comments REASON FOR VISIT (unrecogniz ed section and content) 3 MONTH FOLLOW UP MBmedicati onHolter Monitorcortisone shot right kneeNo InformationNo InformationNo InformationNo InformationWELLNESSconcernU/Arefillknee issues, possible injection3 month Follow upLabs done?3 month Follow upUA- Burning, UrgencyUANo InformationPre-Op ClearanceNo Informationcough, horsness, no enegry, started InformationTCM possiblyNo InformationNo InformationConcernsNo InformationWILLOWSERRORNo InformationWillowsNew ordersrefillWillowsWeekend Call -- WillowsNew OrdersBO[facility] HHWillowsnursing home d/c follow [facility] nurseMedication Clarification INFORMATION SOURCE (unrecogn ized section and content) DATE CREATED AUTHOR 02/14/2023 [facility] DATE CREATED AUTHOR AUTHOR'S ORGANIZ ATION 07/13/2023 [facility] DATE CREATED AUTHOR AUTHOR'S ORGANIZ ATION 10/04/2023 [facility] DATE CREATED AUTHOR AUTHOR'S ORGANIZ ATION 05/17/2024 [facility] DATE CREATED AUTHOR AUTHOR'S ORGANIZ ATION 08/14/2024 [facility] DATE CREATED AUTHOR AUTHOR'S ORGANIZ ATION 01/25/2025 [facility] pital Care Teams (unrecognized sec tion and content) Team Status: Active Member Role Status Dates Harsha Arrieta DO Primary Care Provider Active Team Status: Active Member Role Status Dates Harsha Arrieta DO Primary Care Provide r, Attending Provider Active Start: October 10, 2024 Team Status: Inactive Member Role Status Dates Harsha Arrieta DO Primary Care Provide r, Attending Provider Active Start: October 16, 2024 End: October 16, 2024 Team Status: Inactive Member Role Status Dates Harsha Arrieta DO Primary Care Provide r, Attending Provider Active Start: January 03, 2025 End: January 03, 2025 Team Status: Inactive Member Role Status Clayton Arrieta DO Primary Care Provide r, Attending Provider Active Start: April 13, 2024 End: April 13, 2024 Team Status: Inactive Member Role Status Clayton Arrieta DO Primary Care Provide r, Attending Provider Active Start: May 30, 2024 End: May 30, 2024 Team Status: Active Member Role Status Clayton Arrieta DO Primary Care Provider Active Start: January 31, 2024 JOSELITO Araiza Attending Provider Active Start : January 31, 2024 Team Status: Inactive Member Role Status Clayton Arrieta DO Primary Care Provide r, Attending Provider Active Start: February 14, 2024 End: February 14, 2024 Team Status: Active Member Role Status Clayton Arrieta DO Primary Care Provide r, Attending Provider Active Start: February 25, 2024 Team Status: Inactive Member Role Status Clayton Arrieta DO Attending Provider Active Sta rt: November 25, 2023 End: November 25, 2023 Team Status: Inactive Member Role Status Clayton Arrieta DO Primary Care Provide r, Attending Provider Active Start: July 10, 2024 End: July 10, 2024 Team Status: Inactive Member Role Status Dates Harsha Arrieta DO Primary Care Provide r, Attending Provider Active Start: July 18, 2024 End: July 18, 2024 Team Status: Active Member Role Status Dates Harsha Arrieta Primary Care Provide r, Attending Provider Active Start: July 27, 2024 Team Status: Inactive Member Role Status Dates Harsha Arrieta DO Primary Care Provide r, Attending Provider Active Start: September 06, 2024 End: September 06, 2024 Seater Assembler Relationship Specialty Start Date End Date Harsha Arrieta MD [address] [place] [id number] PCP - General Internal Medicine 05/16/24 Seater Assembler Relationship Specialty Start Date End Date Harsha Arrieta DO [address] [place] [id number] PCP - General 10/06/12 Seater Assembler Relationship Specialty Start Date End Date Harsha Arrieta DO [address] [place] [address] PCP - General 10/06/12 Goals (unrecognized section and content) Goals may be documented in a n alternate section FOR RECORDS PERTAINING TO PATIENTS WHO ARE OR HAVE BEEN ENROLLED IN A CHEMICAL DEPENDENCY/SUBSTANCEABUSE PROGRAM, SOME INFORMATION MAY BE OMITTED. This clinical summary was aggregated from multiple sources. Caution should be exercised in using it in the provision of clinical care. This summary normalizes information from multiple sources, and as a consequence, information in this document may materially change the coding, format and clinical context of patient data. In addition, data may be omitted in some cases. CLINICAL DECISIONS SHOULD BE BASED ON THE PRIMARY CLINICAL RECORDS. [employer] [facility]. provides no warranty or guarantee of the accuracy or completeness of information in this document.
[2025-01-28 15:30] VITALS: BP 162/69; PULSE 68; TEMP 37; O2SAT 97; BMI 24.0
--- NOTE | 2025-01-28 17:51 | ED_ITS ---
HPI HPI - General Adult General Chief complaint: Fall Stated complaint: FALL Time Seen by Provider: 01/28/25 17:47 Source: patient and family Mode of arrival: Wheelchair Limitations: no limitations History of Present Illness HPI narrative: 80-year-old female presents for back pain. Shortly before coming into the emergency department she lost her balance and fell and hurt her lower back. She states she hit her head as well but that does not really hurt much now. No LOC. No injury to her extremities. She is accompanied by family members who contribute to the history. Related Data Home Medications ?Medication ?Instructions ?Recorded ?Confirmed amiodarone 200 mg tablet 200 mg PO Q24H 10/05/23 06/06/24 atorvastatin 40 mg tablet 40 mg PO DAILY 10/05/23 06/06/24 diltiazem HCl 240 mg 240 mg PO Q24H 10/05/23 06/06/24 capsule,extended release 24 hr glimepiride 2 mg tablet 1 mg PO DAILY 10/05/23 06/06/24 lisinopril 20 mg tablet 20 mg PO DAILY 10/05/23 06/06/24 warfarin 5 mg tablet 5 mg PO DAILY 06/06/24 06/06/24 Allergies Allergy/AdvReac Type Severity Reaction Status Date / Time No Known Drug Allergies Allergy Verified 01/28/25 15:30 Opioid HPI Opioid Management Most Recent Opioid Data: No Data to Display Review of Systems ROS Narrative A ten point review of systems is negative except as noted above. PFSH PFSH Social History Smoking status: Never smoker Little interest or pleasure in doing things: not at all Feeling down, depressed, or hopeless: not at all Exam Narrative Exam Narrative: Nurses note and vital signs reviewed and patient is not hypoxic. General: The patient appears in no acute distress, she is sitting on a transport chair. Skin: Warm, dry, no pallor noted. There is no rash noted. Head: Normocephalic, atraumatic Eye: Normal conjunctiva, no drainage Ears, Nose, Mouth, and Throat: oral mucosa is moist. Nares patent. Cardiovascular: Regular Rate and Rhythm Respiratory: Patient is in no distress, no accessory muscle use, lungs are clear to auscultation, no wheezing, rales or rhonchi Back: No bruise or abrasion. She has some diffuse tenderness particularly to the right of midline in the upper lumbar region. GI: Normal bowel sounds, no tenderness to palpation, no masses appreciated. No rebound, guarding, or rigidity noted. Musculoskeletal: The patient has no evidence of calf tenderness, no pitting edema, symmetrical pulses noted bilaterally Neurological: A&O, normal speech Psychiatric: Cooperative Constitutional Vital Signs, click to edit/add: Last Vital Signs Temp 98.6 F 01/28/25 15:30 Pulse 68 01/28/25 15:30 Resp 18 01/28/25 15:30 BP 162/69 H 01/28/25 15:30 Pulse Ox 97 01/28/25 15:30 O2 Del Method Room Air 01/28/25 15:30 Course Vital Signs Vital signs: Vital Signs Temperature 98.6 F 01/28/25 15:30 Pulse Rate 68 01/28/25 15:30 Respiratory Rate 18 01/28/25 15:30 Blood Pressure 162/69 H 01/28/25 15:30 Pulse Oximetry 97 01/28/25 15:30 Oxygen Delivery Method Room Air 01/28/25 15:30 Temperature 98.6 F 01/28/25 15:30 Pulse Rate 68 01/28/25 15:30 Respiratory Rate 18 01/28/25 15:30 Blood Pressure 162/69 H 01/28/25 15:30 Pulse Oximetry 97 01/28/25 15:30 Oxygen Delivery Method Room Air 01/28/25 15:30 Medical Decision Making MDM Narrative Medical decision making narrative: The patient found to have a T12 burst fracture. I spoke to Dr. Hernandez and on his suggestion I spoke to Dr. Rosenbaum, neurosurgeon, at [facility]. He agrees that we should transfer the patient's there and I am awaiting a callback from the hospitalist at [facility]. Findings are discussed thoroughly with the patient and her family. She is agreeable and stable for transfer. Differential Diagnosis Differential Diagnosis: Contusion, fracture Imaging Data CT brain, CT C-spine, CT thoracic spine, CT lumbar spine: Radiologist's impression: T12 burst fracture, otherwise negative for acute finding Discharge Plan Discharge Chief Complaint: Fall Clinical Impression: Closed T12 fracture Patient Disposition: [facility] Time of Disposition Decision: 18:47 Discharge Location: [facility] Condition: Fair Mode of Transportation: EMS
[2025-01-28] MEDS: ACETAMINOPHEN 300 MG/ 30 MG CODEINE TABLET 1 TAB PO (18:14)
[2025-01-28 19:30] LABS: Basophils Percent Auto 0.1 % (0.2-2.0); Eosinophils Percent Auto 0.2 % (0.9-7.0); Hematocrit 40.9 % (36.0-48.0); Hemoglobin 13.9 g/dL (12.0-16.0); Immature Granulocytes Abs Auto 0.14 10^3/uL (0.00-0.03); Immature Granulocytes Pct Auto 0.8 % (0.0-0.5); Lymphocytes Absolute Auto 0.8 10^3/uL (1.2-3.8); Lymphocytes Percent Auto 4.6 % (20.5-60.0); Mean Corpuscular Hemoglobin 34.2 pg (26.7-34.0); Mean Corpuscular Volume 100.5 fL (81.0-99.0); Mean Platelet Volume 10.7 fL (9.5-13.5); Monocytes Percent Auto 5.6 % (1.7-12.0); Neutrophils Absolute Auto 15.8 10^3/uL (1.4-6.5); Neutrophils Percent Auto 88.7 % (43.0-75.0); Platelet Count 230 10^3/uL (150-450); Red Blood Count 4.07 10^6/uL (4.20-5.40); Red Cell Distribution Width 12.8 % (11.0-15.0); White Blood Count 17.8 10^3/uL (4.0-11.0)
[2025-01-28 19:41] LABS: BUN Creatinine Ratio 33.3; Calcium 9.6 mg/dL (8.5-10.1); Chloride 96 mmol/L (98-107); Estimated GFR (African America 54 (>=60 mL/min/1.73m^2); Estimated GFR (Non-African Ame 45 (>=60 mL/min/1.73m^2); Glucose 308 mg/dL (74-106); Sodium 132 mmol/L (136-145)
--- NOTE | 2025-01-28 19:42 | PC.NURSE ---
Continue to await CT results. Pt states this pain is tolerable.
[2025-01-28 21:05] LABS: Bilirubin Urine NEGATIVE (NEGATIVE); Blood Urine SMALL (NEGATIVE); Clarity Urine CLEAR (CLEAR); Color Urine BROWN (YELLOW); Glucose Urine UA >=1000 mg/dL (NEGATIVE); Ketones Urine 15 mg/dL (NEGATIVE); Leukocyte Esterase Urine SMALL (NEGATIVE); Nitrite Urine POSITIVE (NEGATIVE); Protein Urine TRACE mg/dL (NEG/TRACE); Specific Gravity Urine 1.025 (1.005-1.025); Urobilinogen Urine 0.2 EU/dL (0.2-1.0)
[2025-01-28 21:13] LABS: Bacteria Urine LARGE #/HPF (NONE SEEN); Cast Seen? NONE SEEN #/LPF (NONE SEEN); Crystals Seen? None Seen #/HPF (None Seen); Mucus Urine NONE SEEN (NONE SEEN); RBC Urine 0-2 #/HPF (0-2); Squamous Epithelial Cell Urine RARE #/LPF (NONE/RARE)
[2025-01-28 21:14] LABS: Urine Culture Indicated YES-FRMC
[2025-01-29] MEDS: ACETAMINOPHEN 500 MG TABLET PO (00:01)
[2025-01-29] MEDS: MORPHINE SULFATE 2 MG/ML SYRINGE IV (00:01)
[2025-01-29] MEDS: ONDANSETRON PF 4 MG/2 ML VIAL IV (00:02)
[2025-01-29 00:12] VITALS: BP 172/78; PULSE 68; TEMP 36.8; O2SAT 98
== END 2025-01-29 00:16 | disposition short-term general hospital (02) ==
PROVIDERS: Emergency Medicine; Emergency Provider Emergency Medicine; PCP Internal Medicine
DX: S22.081A Stable burst fracture of T11-T12 vertebra, initial encounter for closed fracture (principal); W19.XXXA Unspecified fall, initial encounter; R82.998 Other abnormal findings in urine
CPT/HCPCS: 36415; 70450; 72125; 72128; 72131; 80048; 81001; 85025; 87086; 96374; 96375; 99285; J2270; J2405

== ENCOUNTER 2025-02-20 06:09 | Outpatient (RCR) | payer MEDICARE, SELFPAY | END 2025-03-21 14:42 | disposition home or self-care (01) | LOC: MM 06:09 | PROVIDERS: PCP Internal Medicine; Visit Provider Internal Medicine | DX: Z51.81 Encounter for therapeutic drug level monitoring (principal); Z79.01 Long term (current) use of anticoagulants; I48.91 Unspecified atrial fibrillation ==

== ENCOUNTER 2025-03-22 04:50 | Outpatient (RCR) | payer MEDICARE, SELFPAY | END 2025-04-21 07:17 | disposition home or self-care (01) | LOC: MM 04:50 | PROVIDERS: PCP Internal Medicine; Visit Provider Internal Medicine | DX: Z51.81 Encounter for therapeutic drug level monitoring (principal); Z79.01 Long term (current) use of anticoagulants; I48.0 Paroxysmal atrial fibrillation ==

== ENCOUNTER 2025-04-22 07:44 | Outpatient (RCR) | payer MEDICARE, SELFPAY | END 2025-05-17 14:42 | disposition home or self-care (01) | LOC: MM 07:44 | PROVIDERS: PCP Internal Medicine; Visit Provider Internal Medicine | DX: Z51.81 Encounter for therapeutic drug level monitoring (principal); Z79.01 Long term (current) use of anticoagulants; I48.0 Paroxysmal atrial fibrillation ==

== ENCOUNTER 2025-05-07 12:15 | Outpatient (OUT) | payer MEDICARE, SELFPAY ==
--- OUTSIDE RECORDS SUMMARY | 2024-08-15 09:20 | XMS_ITS ---
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 Name Role Phone Miguel Ángel Day Unavailable [phone] Donis Combs Unavailable [phone] REASON FOR VISIT review xray [facility] Problems Problem Type SNOMED Code ICD Code Onset Dates Problem Status W/U Status Risk Notes Problem 447379071 Pain of right femur (M89.8X5) Active confirmed Encounters Encounter Location Date Provider Diagnosis [facility] [address] [place] [address] 08/15/2024 Donis Combs Closed fracture of shaft of right femur with routine healing, subsequent encounter S72.301D and Pain of right femur M89.8X5 Assessments Encounter Date Diagnosis (ICD Code) Assessment Notes Treatment Notes Treatment Clinical Notes Section Notes 08/15/2024 Closed fracture of shaft of right femur with routine healing, subsequent encounter (ICD-10 - S72.301D) 08/15/2024 Pain of right femur (ICD-10 - M89.8X5) Plan Of Treatment Pending Test Test Name Order Date Femur, right 2v - 56886 08/15/2024 Progress Notes * ANMOL MENANDOB: 5 (79 yo F)Acc No.[id number]:08/15/2024 Patient: FATUMA TAVERA :1945 A ge:79 Y S ex:Female Address:[address], [place] [address] Subjective: * Chief Complaints: * r charlie khanpiero Rowley * Medical History: * Surgical History: * Hospitalization/Major Diagno stic Procedure: * Medications: Objective: * Vitals: * Physical Examination: Assessment: * Assessment: 1. C losed fracture of shaft of right femur with routine healing, subsequent encounter - S72.301D (Primary) 2 . P ain of right femur - M89.8X5 Plan: * Treatment: 2. P ain of right femur I maging: Femur, right 2v - [id number] * Procedure Codes: 7 3552 X-RAY EXAM OF FEMUR 2/> * true * Date: Generated for Matteo lee/Teagan/Elianasmitting on: 0 05/07/2025 12:20 PM EDT
--- OUTSIDE RECORDS SUMMARY | 2025-01-22 05:40 | XMS_ITS ---
Author Organization [facility] Address [address] [place] [address] Care Team Providers Care Programming Manager Name Role Phone Miguel Ángel Day Unavailable [phone] Brenda Juarez Unavailable [phone] Allergies No Known Allergies REASON FOR VISIT Referral from Dr. Combs, right femur/leg pain, concerned about leg length discrepancy, Painful right GILBERTO, Leg length discrepancy Medications Medication SIG (Take, Route, Fr equency, Duration) Notes Start Date End Date Status Eliquis Not-Taking PriLOSEC Not-Taking ALPRAZolam Active Hydrochlorot Not-Osvaldo ing lisinopril Active atorvastatin Not-Osvaldo ing glimepiride Not-Taki ng carvedilol Not-Takin g Tylenol Not-Taking Caltrate Not-Taking oxyBUTYnin Not-Takin g levothyroxine Active Pepcid Not-Taking dilTIAZem Active hydroCHLOROthiazide Active amiodarone Active Trulicity Pen Active warfarin Active miconazole Active acetaminophen Active Mucinex Active omeprazole Active Colace Active melatonin Active Social History Tobacco Use: Social History Observation Description Date Details (start date - stop date) Never Smoker NA - NA AUDIT-C (Standard) Question Answer Notes Did you have a drink containing alcohol in the p ast year? No Points 0 Interpretation Negative Tobacco Control (Standard) Question Answer Notes Tobacco use: Nonsmoker Problems Problem Type SNOMED Code ICD Code Onset Dates Problem Status W/U Status Risk Notes Problem Localized, primary osteoarthritis of the pelvic region and thigh (501565290) 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) Active confirmed Vital Signs Height 5'4 in 01/22/2025 Weight 160 lbs 01/22/2025 BMI 27.46 01/22/2025 Encounters Encounter Location Date Provider Diagnosis [facility] [address] [place] [address] 01/22/2025 Brenda Juarez Iliotibial band synd yu of right side M76.31 ; Pain in right hip M25.551 ; Trochanteric bursitis, right hip M70.61 ; Leg length discrepancy M21.70 ; Presence of right artificial hip joint Z96.641 and Primary osteoarthritis of left hip M16.12 Assessments Encounter Date Diagnosis (ICD Code) Assessment Notes Treatment Notes Treatment Clinical Notes Section Notes 01/22/2025 Iliotibial band syndrome of right side (ICD-10 - M76.31) Painful right GILBERTO Right hip trochanteric bursitis Right leg IT band syndrome Scoliosis Left hip OA 01/22/2025 Pain in right hip (ICD-10 - M25.551) Painful right GILBERTO Right hip trochanteric bursitis Right leg IT band syndrome Scoliosis Left hip OA 01/22/2025 Trochanteric bursitis, right hip (ICD-10 - M70.61) Painful right GILBERTO Right hip trochanteric bursitis Right leg IT band syndrome Scoliosis Left hip OA 01/22/2025 Leg length discrepancy (ICD-10 - M21.70) Painful right GILBERTO Right hip trochanteric bursitis Right leg IT band syndrome Scoliosis Left hip OA 01/22/2025 Presence of right artificial hip joint (ICD-10 - Z96.641) Painful right GILBERTO Right hip trochanteric bursitis Right leg IT band syndrome Scoliosis Left hip OA 01/22/2025 Primary osteoarthritis of left hip (ICD-10 - M16.12) Painful right GILBERTO Right hip trochanteric bursitis Right leg IT band syndrome Scoliosis Left hip OA 01/22/2025 Other Discussed treatment options with patient. Discussed with patient that left leg does appear to be a little bit shorter than right leg on examination. Radiographs do demonstrate end-stage osteoarthritis to the left hip as well as scoliosis through the lumbar spine which could contribute to this likely discrepancy. Also discussed with patient that compensating for leg length prior to use of shoe lift over the last few months could have contributed to development of IT band syndrome and trochanteric bursitis. Patient will start on physical therapy for IT band stretching and strengthening as well as for balance and gait training. Patient was given a trochanteric bursa corticosteroid injection today in office. Patient instructed that if she received relief from the injection that we could repeat as early as 3 months. Patient to continue activity modification, rest, ice, elevation, and use of anti-inflammatori es as needed for pain control. Will also get ESR and CRP, inflammatory marker labs since pain is localized around total hip and retrograde IM nail. Patient was in agreement with treatment plan. All questions and concerns were addressed at the time of the appointment. Will plan to see patient back in 6 weeks for repeat clinical evaluation. No radiographs required. Patient encouraged to call the office with any questions or concerns in the meantime. Painful right GILBERTO Right hip trochanteric bursitis Right leg IT band syndrome Scoliosis Left hip OA Plan Of Treatment Treatment Notes Assessment Notes Other Discussed treatment options with patient. Discussed with patient that left leg does appear to be a little bit shorter than right leg on examination. Radiographs do demonstrate end-stage osteoarthritis to the left hip as well as scoliosis through the lumbar spine which could contribute to this likely discrepancy. Also discussed with patient that compensating for leg length prior to use of shoe lift over the last few months could have contributed to development of IT band syndrome and trochanteric bursitis. Patient will start on physical therapy for IT band stretching and strengthening as well as for balance and gait training. Patient was given a trochanteric bursa corticosteroid injection today in office. Patient instructed that if she received relief from the injection that we could repeat as early as 3 months. Patient to continue activity modification, rest, ice, elevation, and use of anti-inflammatories as needed for pain control. Will also get ESR and CRP, inflammatory marker labs since pain is localized around total hip and retrograde IM nail. Patient was in agreement with treatment plan. All questions and concerns were addressed at the time of the appointment. Will plan to see patient back in 6 weeks for repeat clinical evaluation. No radiographs required. Patient encouraged to call the office with any questions or concerns in the meantime. Pending Test Test Name Order Date PT/OT - Eval and Treat 01/22/2025 SCANOGRAM 01/22/2025 ESR, CRP 01/22/2025 PELVIS - AP ONLY [id number] 01/22/2025 Next Appt Details Follow Up: 6 Weeks, Reason: Medications Administered Medication Instructions Date of Administration Dosage Notes Kenalog 01/22/2025 1 mL SENSORCAINE 0.5% 01/22/2025 2 mL lidocaine 01/22/2025 2 mL Progress Notes * JONI MENAOB: 5 (80 yo F)Acc No.[id number]:01/22/2025 Patient: FATUMA TAVERA Provider: Eliazar Juarez PA-C :1945 A ge:80 Y S ex:Female Date:01/22/2025 Address:[address] [place] [address], [id number] Subjective: * Chief Complaints: * R eferral from Dr. Combs, right femur/leg pain, concerned about leg length discrepancyPainful right THALeg length discrepancy * HPI: G eneral Info per Patient Report: Have you seen another doctor in this practice? N o. S lulu affected is R ight. J oint or body part affected is l eg. P ain occurred i njury. W ork related: N o. M otor vehicle accident: N o. T hird democrat responsibility: N o. Q uality of pain is m oderate. H ave you been seen by a Dentist in the last year? Y es. D o you have any dental problems? Y es. Patient is an 80-year-old female who presents to the office for evaluation of possible leg length discrepancy and increased pain to her right total hip. Patient states has had ongoing pain to the right hip and thigh for the last 6 months. Pain is gradually been worsening. She denies any groin pain but does note an intermittent tenderness through her buttock/lateral hip as well as down the IT band/lateral thigh. Patient has no pain at rest but notes a tight, sharp pain through the lateral hip and thigh that gets significantly worse with weightbearing. Pain is worse in the morning. Does occasionally have some pain in her buttocks with prolonged sitting. No pain through the front or back of her thigh. No hip or groin pain on the left side. She did have a fall last week with some bruising to her thigh but notes minimally increased pain after fall. Patient did undergo right total hip arthroplasty on 08/02/[address] She had a subsequent fall approximately 6 weeks after that surgery with a periprosthetic fracture which was treated with a retrograde IM nail by Dr. Combs. She denies any fever or chills. Does have chronic bilateral lower extremity neuropathy which is unchanged. Denies any redness, drainage, sores, or dehiscence of previous incision sites. Pain is not waking her at night, however she does have to sleep in a recliner as she cannot get comfortable in bed. She does feel like her left leg is shorter than her right leg. Has been taking Tylenol with minimal relief. She does have a shoe lift in her left shoe, which she is unsure if it is helps. The last time she did physical therapy was after her surgeries in 2022. She has tried topical Biofreeze and topical lidocaine with mild relief. She has tried ice and heat in the past with mild relief. Ambulates with walker most the time at home, but typically ambulates independently while in public for short distances. Did have to use a wheelchair today due to distance into the office. Patient does have a history of diabetes. Last A1c unknown. No history of blood clots. She does take warfarin for atrial fibrillation. She also notes at baseline balance issues that were present prior to onset of right hip and thigh pain. * ROS: C onstitutional: Denies C hills. D enies F ever. M usculoskeletal: Joint pain Y es. J oint Swelling Y es. J oint stiffness Y es. H ematologic: Bruising Y es. C ardiovascular: Leg/Ankle Swelling Y es. * Medical History: * Surgical History: R ight intra-articular hip injection 04/14/2023Right total hip 08/02/2023IM stabilization right femoral shaft fracture 09/25/2023 * Family History: M other: diagnosed with Heart trouble. F ather: diagnosed with Stroke, Heart trouble. * Social History: E xercise regularly D o you exercise? N o. W hat is your place of residence? W here do you live? P rivate home. A GRACIELA-C (Standard) D id you have a drink containing alcohol in the past year? N o, P oints 0 , I nterpretation N egative. T obacco Control (Standard) T obacco use: N onsmoker. * Medications: T akingmelatonin Colace Mucinex omeprazole miconazole acetaminophen Trulicity Pen warfarin amiodarone hydroCHLOROthiazide dilTIAZem levothyroxine lisinopril ALPRAZolam Taking melatonin Taking Colace Taking Mucinex Taking omeprazole Taking miconazole Taking acetaminophen Taking Trulicity Pen Taking warfarin Taking amiodarone Taking hydroCHLOROthiazide Taking dilTIAZem Taking levothyroxine Taking lisinopril Taking ALPRAZolam Not-Taking/PRNPepcid oxyBUTYnin atorvastatin Tylenol Caltrate glimepiride carvedilol Hydrochlorot Eliquis PriLOSEC Medication List reviewed and reconciled with the patientNot-Taking/PRN Pepcid Not-Taking/PRN oxyBUTYnin Not-Taking/PRN atorvastatin Not-Taking/PRN Tylenol Not-Taking/PRN Caltrate Not-Taking/PRN glimepiride Not-Taking/PRN carvedilol Not-Taking/PRN Hydrochlorot Not- Taking/PRN Eliquis Not-Taking/PRN PriLOSEC Medication List reviewed and reconciled with the patient * Allergies: N .K.D.A.no[Allergies Verified] Objective: * Vitals: H t: 5'4 , Wt: 160 lbs, BMI:27.46. * Examination: G eneral examination: G eneral Examination: Patient is a well-appearing 80-year-old female sitting comfortably in a chair. She is awake, alert and oriented x 3, and in no acute distress. Answering questions appropriately. Normal mood and affect. Does have a bit of a sway when walking. X -ray Imaging Studies: S ee dictation by RSS Dictated by Dr. Day AP pelvis obtained and reviewed. Radiograph demonstrates well aligned well-fixed right total hip arthroplasty. No evidence of hardware failure or loosening. No acute fracture or dislocation. Left hip demonstrates severe degenerative changes with central wear pattern. No acute fracture or dislocation. R ight Lower Extremity: H ealed incisions to anterior and lateral aspects of proximal thigh without evidence of erythema, drainage, sores, or dehiscence. Skin otherwise intact without evidence of erythema or ecchymosis. No edema. Moderate tenderness to lateral hip/trochanteric bursa. Moderate tenderness down IT band/lateral hip. Hip range of motion forward flexion 90 degrees, internal rotation 20 degrees, external rotation 20 degrees. Minimal lateral hip pain with hip range of motion. 4- out of 5 hip flexion, hip abduction strength. Motor intact quad, hamstring, TA, GSC, EHL, FHL. Sensation intact light touch SPN, DPN, sural, saphenous, tibial nerve distribution. 2+ DP pulse. Toes warm and well-perfused. No calf pain. Negative Kinjal. Left leg did appear approximately 1 cm shorter than right. Assessment: * Assessment: 1. P ain in right hip - M25.551 (Primary) 2 . I liotibial band syndrome of right side - M76.31 3 . T rochanteric bursitis, right hip - M70.61 ?4. L eg length discrepancy - M21.70 5 . P resence of right artificial hip joint - Z96.641 6 . P rimary osteoarthritis of left hip - M16.12 ? Painful right GILBERTO Right hip trochanteric bursitis Right leg IT band syndrome Scoliosis Left hip OA. Plan: * Treatment: 2. L eg length discrepancy I maging: SCANOGRAM I maging: PELVIS - AP ONLY [id number] 3. P resence of right artificial hip joint L AB: PT/OT - Eval and Treat L AB: ESR, CRP 4. O thers Notes: Discussed treatment options with patient. Discussed with patient that left leg does appear to be a little bit shorter than right leg on examination. Radiographs do demonstrate end-stage osteoarthritis to the left hip as well as scoliosis through the lumbar spine which could contribute to this likely discrepancy. Also discussed with patient that compensating for leg length prior to use of shoe lift over the last few months could have contributed to development of IT band syndrome and trochanteric bursitis. Patient will start on physical therapy for IT band stretching and strengthening as well as for balance and gait training. Patient was given a trochanteric bursa corticosteroid injection today in office. Patient instructed that if she received relief from the injection that we could repeat as early as 3 months. Patient to continue activity modification, rest, ice, elevation, and use of anti-inflammatories as needed for pain control. Will also get ESR and CRP, inflammatory marker labs since pain is localized around total hip and retrograde IM nail. Patient was in agreement with treatment plan. All questions and concerns were addressed at the time of the appointment. Will plan to see patient back in 6 weeks for repeat clinical evaluation. No radiographs required. Patient encouraged to call the office with any questions or concerns in the meantime. * Procedures: R ight hip trochanteric bursa CSI: Discussed procedure, risk, benefits, and alternatives with patient. Risk include but not limited to bleeding, infection, pain. Patient understood the risk and verbally consented to procedure. Patient was placed in a lateral decubitus position with right hip facing up initially. Point of maximum tenderness was identified utilizing manual palpation. Injection site was marked and cleaned with alcohol. Injection was given: 40 mg Kenalog, Marcaine, lidocaine. Injection site was was cleaned and Band-Aid was placed. Patient tolerated procedure without complications. * Therapeutic Injections: Kenalog : 1 mL (Route: Other/Miscellaneous) given by Brenda Juarez PA-C (Iliotibial band syndrome of right side) SENSORCAINE 0.5% : 2 mL given by Brenda Juarez PA-C (Iliotibial band syndrome of right side) ? LIDOCAINE : 2 mL (Route: Other/Miscellaneous) given by Brenda Juarez PA-C (Iliotibial band syndrome of right side) * Procedure Codes: 2 0610 Injection major joint/bursa, Modifiers: RT J3301 Inj Kenalog/ICC 10 mg JZ mod, Units: 4.00 , Modifiers: JZ * Preventive Medicine: MIPS Measures: C MS139 Fall Risk S creening: N o falls in the past year.? Screenings: F all Risk Screening F all Risk Assessment: N o falls in the past year. TIM Screening: F ALLS: Screening for Future Fall Risk H ave you had two or more falls in the past year? N o, H ave you had any falls with injury in the past year? N o.? * Follow Up: 6 Weeks Forms: * Images: * Sign off status: Completed true * Provider: Eliazar Juarez PA-C Date: 0 01/22/2025 Generated for Matteo lee/Teagan/Magyitting on: 0 05/07/2025 12:20 PM EDT History and Physical Notes * HPI (History of Present Illness) Category Sub-Category Detail Notes Category Not es General Info per Patient Report Side affected is Right Patient is an 80-yea r-old female who presents to the office for evaluation of possible leg length discrepancy and increased pain to her right total hip. Patient states has had ongoing pain to the right hip and thigh for the last 6 months. Pain is gradually been worsening. She denies any groin pain but does note an intermittent tenderness through her buttock/lateral hip as well as down the IT band/lateral thigh. Patient has no pain at rest but notes a tight, sharp pain through the lateral hip and thigh that gets significantly worse with weightbearing. Pain is worse in the morning. Does occasionally have some pain in her buttocks with prolonged sitting. No pain through the front or back of her thigh. No hip or groin pain on the left side. She did have a fall last week with some bruising to her thigh but notes minimally increased pain after fall. Patient did undergo right total hip arthroplasty on 08/02/[address] She had a subsequent fall approximately 6 weeks after that surgery with a periprosthetic fracture which was treated with a retrograde IM nail by Dr. Combs. She denies any fever or chills. Does have chronic bilateral lower extremity neuropathy which is unchanged. Denies any redness, drainage, sores, or dehiscence of previous incision sites. Pain is not waking her at night, however she does have to sleep in a recliner as she cannot get comfortable in bed. She does feel like her left leg is shorter than her right leg. Has been taking Tylenol with minimal relief. She does have a shoe lift in her left shoe, which she is unsure if it is helps. The last time she did physical therapy was after her surgeries in 2022. She has tried topical Biofreeze and topical lidocaine with mild relief. She has tried ice and heat in the past with mild relief. Ambulates with walker most the time at home, but typically ambulates independently while in public for short distances. Did have to use a wheelchair today due to distance into the office. Patient does have a history of diabetes. Last A1c unknown. No history of blood clots. She does take warfarin for atrial fibrillation. She also notes at baseline balance issues that were present prior to onset of right hip and thigh pain. Joint or body part affected is leg Pain occurred injury Work related: No Motor vehicle accident: No Quality of pain is moderate Have you seen another doctor in this pra ctice? No Third democrat responsibility: No Have you been seen by a Dentist in the l ast year? Yes Do you have any dental problems? Yes Examination Category Sub-Category Detail Notes Category Not es General examination General Examination: Patient is a well-appearing 80-year-old female sitting comfortably in a chair. She is awake, alert and oriented x 3, and in no acute distress. Answering questions appropriately. Normal mood and affect. Does have a bit of a sway when walking. X-ray Imaging Studies See dictation by RSS Dictated by Dr. Day AP pelvis obtained and reviewed. Radiograph demonstrates well aligned well-fixed right total hip arthroplasty. No evidence of hardware failure or loosening. No acute fracture or dislocation. Left hip demonstrates severe degenerative changes with central wear pattern. No acute fracture or dislocation. Right Lower Extremity Healed incisions to anterior and lateral aspects of proximal thigh without evidence of erythema, drainage, sores, or dehiscence. Skin otherwise intact without evidence of erythema or ecchymosis. No edema. Moderate tenderness to lateral hip/trochanteric bursa. Moderate tenderness down IT band/lateral hip. Hip range of motion forward flexion 90 degrees, internal rotation 20 degrees, external rotation 20 degrees. Minimal lateral hip pain with hip range of motion. 4- out of 5 hip flexion, hip abduction strength. Motor intact quad, hamstring, TA, GSC, EHL, FHL. Sensation intact light touch SPN, DPN, sural, saphenous, tibial nerve distribution. 2+ DP pulse. Toes warm and well-perfused. No calf pain. Negative Kinjal. Left leg did appear approximately 1 cm shorter than right.
--- OUTSIDE RECORDS SUMMARY | 2025-03-05 06:10 | XMS_ITS ---
Author Organization [facility] Address [address] [place] [address] Care Team Providers Care Temple Marker Name Role Phone Miguel Ángel Day Unavailable [phone] REASON FOR VISIT rc right hip/leg pain injection 3/3 Encounters Encounter Location Date Provider Diagnosis [facility] [address] [facility] [address] [place] [address] 03/05/2025 Miguel Ángel Day Plan Of Treatment No Information Progress Notes * ANMOL MENACLARENCEOB: 5 (80 yo F)Acc No.[id number]:03/05/2025 Patient: FATUMA TAVERA Provider: Sergio Day MD :1945 A ge:80 Y S ex:Female Date:03/05/2025 Address:[address] [place], [place] [id number] Subjective: * Chief Complaints: * 1 . Rc right hip/leg pain injection 3/3. * Medical History: Objective: * Vitals: Assessment: Plan: * Treatment: Forms: * Images: * Electronic signature of Miguel Ángel Day MD on 05/07/2025 at 12:20 PM EDT Sign off status: Pending * Provider: Sergio Day MD Date: 03/05/2025 Generated for Patricki ng/Fabrightg/eTransmitting on: 05/07/2025 12:20 PM EDT
--- OUTSIDE RECORDS SUMMARY | 2025-05-07 12:20 | XMS_ITS | Encounter Summary ---
Author Organization [facility] Address [address] [place] [address] Care Team Providers Care Account Associate Name Role Phone Harsha Arrieta DO Primary Care Provider [phone] Reason for Visit * Reason Comments Med Refill Encounter Details Date Type Department Care Team (Late st Contact Info) Description 12/10/2023 Refill [facility] [address] [place] [address] Santiago Trinidad MD [address] [place] [id number] PAF (paroxysmal atrial fibrillation) (CMS/HCC) Social History Tobacco Use Types Packs/Day Years Used Date Smoking Tobacco: Never Smokeless Tobacco: Never Alcohol Use Standard Drinks/Week Comments Not Currently 0 (1 standard drink = 0.6 oz pur e alcohol) Comments Unknown Sex and Gender Information Value Date Recorded Sex Assigned at Not on file Legal Sex Female 10:36 PM EDT Gender Identity Not on file Sexual Orientation Not on file documented as of this encounter Plan of Treatment Not on file documented as of this encounter Visit Diagnoses Diagnosis PAF (paroxysmal atrial fibrillation) (CMS/HCC) Atrial fibrillation documented in this encounter Care Teams Account Associate Relationship Specialty Start Date End Date Harsha Arrieta DO [address] [facility] [place] [address] PCP - General 06/21/23 documented as of this encounter
--- OUTSIDE RECORDS SUMMARY | 2025-05-07 12:20 | XMS_ITS | Patient Health Record ---
Author Organization [facility] Address [address] [place] [address] Care Team Providers Care Sheeting Puller Name Role Phone Miguel Ángel Day Unavailable [phone] Donis Combs Unavailable [phone] Brenda Juarez Unavailable [phone] Allergies No Known Allergies Results Component Value Reference Range Notes XR FEMUR RIGHT (MIN 2 VIEWS) Reviewed date:02/15/2025 03:25:18 PM Interpretation: Performing Lab: Notes/Report: EXAMINATION: Performed at: [address] [place] [facility] Performed at: XR LEG LENGTH EVALUATION Reviewed date:01/23/2025 04:39:22 PM Interpretation: Performing Lab: Notes/Report: EXAMINATION: Performed at: [address] [place] [address] Performed at: Reason For Referral No Information Medications Medication SIG (Take, Route, Fr equency, Duration) Notes Start Date End Date Status dilTIAZem Active melatonin Active amiodarone Active Hydrochlorot Not-Osvaldo ing hydroCHLOROthiazide Active lisinopril Active Trulicity Pen Active glimepiride Not-Taki ng warfarin Active carvedilol Not-Takin g miconazole Active Tylenol Not-Taking acetaminophen Active Caltrate Not-Taking Mucinex Active oxyBUTYnin Not-Takin g omeprazole Active atorvastatin Not-Osvaldo ing levothyroxine Active Eliquis Not-Taking Colace Active Pepcid Not-Taking PriLOSEC Not-Taking ALPRAZolam Active Social History Tobacco Use: Social History [...] Problem Status W/U Status Risk Notes Problem 851749322 Aftercare following joint replacement surgery (Z47.1) Active confirmed Problem 94445193 Leg length discrepancy (M21.70) Active confirmed Problem Localized, primary osteoarthritis of the pelvic region and thigh (202627883) 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) Active confirmed Problem Localized, primary osteoarthritis of the pelvic region and thigh (138476279) 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) Active confirmed Problem 512374252 Type 2 diabetes mellitus without complications (E11.9) Active confirmed Problem 64574568 Other chronic pain (G89.29) Active confirmed Problem 474160436 Other long-term (current) drug therapy (Z79.899) Active confirmed Problem 766526400 Presence of righ t artificial hip joint (Z96.641) Active confirmed Problem Closed fracture of shaft of femur (60291511) Closed fracture of shaft of right femur, unspecified fracture morphology, initial encounter (S72.301A) Active confirmed Problem 5762152168096198 Arthritis of right hip (M16.11) Active confirmed Problem Osteopenia (650466569) Osteopenia of multiple sites (M85.89) Active confirmed Problem 240371080 Pain of right femur (M89.8X5) Active confirmed Problem 73498987 Closed fracture of shaft of right femur with routine healing, subsequent encounter (S72.301D) Active confirmed Vital Signs Height 5'4 in 01/22/2025 Weight 160 lbs 01/22/2025 BMI 27.46 01/22/2025 Encounters Encounter Location Date Provider Diagnosis [facility] [address] [place] [facility] [place] [address] 01/22/2025 Brenda Ann Iliotibial band syndrome of right side M76.31 ; Pain in right hip M25.551 ; Trochanteric bursitis, right hip M70.61 ; Leg length discrepancy M21.70 ; Presence of right artificial hip joint Z96.641 and Primary osteoarthritis of left hip M16.12 [facility] [address] [place] [address] 08/15/2024 Donis Combs Closed fracture of shaft of right femur with routine healing, subsequent encounter S72.301D and Pain of right femur M89.8X5 Assessments Encounter Date Diagnosis (ICD Code) Assessment Notes Treatment Notes Treatment Clinical Notes Section Notes 08/15/2024 Pain of right femur (ICD-10 - M89.8X5) 08/15/2024 Closed fracture of shaft of right femur with routine healing, subsequent encounter (ICD-10 - S72.301D) 01/22/2025 Pain in right hip (ICD-10 - M25.551) Painful right GILBERTO Right hip trochanteric bursitis Right leg IT band syndrome Scoliosis Left hip OA 01/22/2025 Iliotibial band syndrome of right side [...] Scoliosis Left hip OA Plan Of Treatment Pending Test Test Name Order Date Femur, right 2v - [id number] 10/13/2023 Femur, right 2v - 58454 11/24/2023 Femur, right 2v - 44425 01/19/2024 Femur, right 2v - 11233 08/15/2024 PT/OT - Eval and Treat 01/22/2025 SCANOGRAM 01/22/2025 ESR, CRP 01/22/2025 PELVIS - AP ONLY [id number] 01/22/2025 Insurance Providers Payer Name Payer Address Payer Phone Subscriber Number Group Number Insured Name Patient Relationship to Insured Coverage Start Date Coverage [place] [address] [place] [address] [id number] FATUMA MENA Self - patient is the insured [facility] SUPPLE[facility] [address] [place] [address] [id number] FATUMA MENA Self - patient is the insured 2 Medications Administered Medication Instructions Date of Administration Dosage Notes Kenalog 01/22/2025 1 mL lidocaine 01/22/2025 2 mL SENSORCAINE 0.5% 01/22/2025 2 mL Medical (General) History Medical History History ICD Code Cancer Type Yes Heart problems: Yes Diabetes: Yes Hypothyroidism High Blood Pressure Depression Anxiety Surgical History Surgery Date(Month/Year) IM stabilization right femoral shaft fra cture 09/25/2023 Right total hip 08/02/2023 Right intra-articular hip injection 03/23
--- OUTSIDE RECORDS SUMMARY | 2025-05-07 12:20 | XMS_ITS | Clinical Summary ---
Author Organization [facility] Address [address] [place] [address] Care Team Providers Care Sawdust Drier Name Role Phone Harsha Arrieta DO Primary Care Provider [phone] Allergies Active Allergy Reactions Criticality Noted Date Comments Sertraline Low 01/16/2013 shaking Medications Eliquis 5 mg tablet Take 5 mg by mouth in the morning and at bedtime. 05/25/20 23 Active hydroCHLOROthiaz lulu (HYDRODiuril) 25 mg tablet Take 25 mg by mouth in the morning. 06/14/20 23 Active lisinopril 20 mg tablet Take 20 mg by mouth in the morning. 06/14/20 23 Active glimepiride (Amaryl) 2 mg tablet Take 1 mg by mouth before breakfast. 06/14/20 23 Active ALPRAZolam (Xanax) 0.25 mg tablet Take 0.25 mg by mouth. Active atorvastatin (Lipitor) 40 mg tablet Take 40 mg by mouth in the evening. 05/06/20 23 Active calcium carbonate-vitami n D3 600 mg-5 mcg (200 unit) tablet Take by mouth. Activ e omeprazole (PriLOSEC) [address] capsule Take 10 mg by mouth before breakfast. Active insulin glargine (Lantus) 100 unit/mL injection vial Inject under the skin at bedtime. 10 units Active insulin lispro (HumaLOG) 100 unit/mL injection Inject 4-14 Units under the skin with breakfast, with lunch, and with evening meal. Active Trulicity 0.75 mg/0.5 mL pen injector INJECT 0.5ML SUBCUTANEOUSLY ONCE A WEEK ON Wednesday11/10/20 23 Active amiodarone (Pacerone) 200 mg tabletIndication s:PAF (paroxysmal atrial fibrillation) (CMS/[facility]) 200mg once daily 90 tablet 3 12/13/19 24 Active dilTIAZem CD (Cartia XT) 240 mg 24 hr capsuleIndicatio ns:Persistent atrial fibrillation (CMS/HCC) Take 1 capsule (240 mg) by mouth in the morning. 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, right, with nonunion, subsequent encounter 09/24/2023 11/23/2023 Aftercare following joint replacement surgery 09/14/2023 Presence of right artificial hip joint 09/14/2023 Chronic heart failure with preserved ejection fr action 07/04/2023 Assessment & Plan (08/11/2024 3:03 PM EDT): NYHC II currently euvolemic without exacerbation No concerning symptoms today Continue GDMT-currently on lisinopril and hydrochlorothiazide no Diuretic therapy currently required Monitor daily weights, I&O, fluid restriction 1.5-2L/day, renal function and electrolytes- Primary localized osteoarthritis of pelvic regio n and thigh 06/22/2023 06/22/2023 Paroxysmal atrial fibrillation Assessment & Plan (08/11/2024 3:07 PM EDT): [id number]= 7 age, female, CHF, CAD/vascular disease, diabetes Currently on EKG patient is in sinus rhythm Continue amiodarone 200 mg a day and Cardizem 240 daily she remains on Eliquis anticoagulation without any bleeding tendencies Assessment & Plan (07/04/2023 12:45 PM EDT): - [id number] at least 5 for age, gender, hypertension, type 2 diabetes - continue Eliquis 5 mg twice daily - I will have her discontinue Coreg and start Cardizem 120 mg daily for rate control - I will have her follow-up in about 2 weeks to reassess heart rate and either uptitrate Cardizem or start Toprol - she deferred amiodarone and/or cardioversion at this time - echo 04/2022 shows moderate left atrial dilatation, she likely has had A-fib for quite some time beyond Holter monitor Hypertension Assessment & Plan (08/11/2024 3:04 PM EDT): Hypertension is unchanged. Currently blood pressure is well-controlled 130/68 continue Cardizem, hydrochlorothiazide and lisinopril Continue current treatment regimen. Continue current medications. Blood pressure will be reassessed at the next regular appointment. Renal function stable Assessment & Plan (07/04/2023 12:43 PM EDT): - stable, continue medication Diabetes mellitus Assessment & Plan (07/04/2023 12:43 PM EDT): -stable, not on insulin Coronary artery disease of n ative artery of [place] heart with stable angina pectoris Overview (08/11/2024): Mild three-vessel coronary disease Assessment & Plan (08/11/2024 3:04 PM EDT): Coronary artery disease is unchanged. No concerning symptoms at this time Remains on goal-directed medical therapy of Lipitor no aspirin in light of Eliquis, lisinopril. Continue current treatment regimen. Continue current medications. Cardiac status will be reassessed in 6 months. Assessment & Plan (07/04/2023 12:44 PM EDT): - stress test 10/2021 no acute reversible ischemia, mild anterior wall fixed defect versus breast attenuation - cardiac cath 2009 showed mild three-vessel disease Aortic valve disorder Assessment & Plan (08/11/2024 3:02 PM EDT): No concerning symptoms Will monitor with routine echocardiogram Discussed with patient to call office for any chest pain, shortness of breath, palpitations, syncope and she voiced understanding. Assessment & Plan (07/04/2023 12:45 PM EDT): - 04/2022 TTE shows mild aortic regurgitation Family History Medical History Relation Name Comments Heart attack Father Stroke Father Relation Name Status Comments Father Social History Tobacco Use Types Packs/Day Years Used Date Smoking Tobacco: Never Smokeless Tobacco: Never Tobacco Cessation:Counseling Given: Not Answered Alcohol Use Standard Drinks/Week Comments Not Currently 0 (1 standard drink = 0.6 oz pur e alcohol) [place] Safety & Environment Answer Date Rec orded Fear of Current or Ex-Partner Not on file Emotionally Abused Not on file 01/13/2024 Physically Abused Not on file 01/13/2024 Sexually Abused Not on file 01/13/2024 Physically or Sexually Abused Not on file Comments Unknown Sex and Gender Information Value Date Recorded Sex Assigned at Not on file Legal Sex Female 10:36 PM EDT Gender Identity Not on file Sexual Orientation Not on file Last Filed Vital Signs Vital Sign Reading Time Taken Comments Blood Pressure 130/68 08/11/2024 2:20 PM EDT Pulse 60 08/11/2024 2:20 PM EDT Temperature - - Respiratory Rate 16 10/21/2023 1:16 PM EST Oxygen Saturation 97% 08/11/2024 2:20 PM EDT Inhaled Oxygen Concentration - - Weight 70.8 kg (156 lb) 08/11/2024 2:20 PM EDT Height 162.6 cm (5' 4 ) 08/11/2024 2:20 PM EDT Body Mass Index 26.78 08/11/2024 2:20 PM EDT Plan of Treatment Health Maintenance Due Date Last Done Comments Diabetes: Hemoglobin A1C 1945 Medicare Annual Wellness (AWV) 1945 Diabetes: Retinopathy Screening 1955 Depression Screening 1957 Diabetes: Urine Protein Screening 01/22/1964 Adult Tetanus 1967 Fall Risk Screening 2010 Pneumococcal Vaccine: 50+ Years (2 of 2 - PCV) 07/03/2020 07/03/2019 COVID-19 Vaccine (4 - season) 2024 08/26/2021, 01/09/2021, 12/19/2020 Influenza Vaccine (Season Ended) 2025 08/26/2022, 08/26/2021, 09/04/2020, Additional history exists Zoster Vaccines Completed 03/09/2022, 10/21/2021 HIB Vaccines Aged Out No longer eligi ble based on patient's age to complete this topic HPV Vaccines Aged Out No longer eligi ble based on patient's age to complete this topic IPV Vaccines Aged Out No longer eligi ble based on patient's age to complete this topic Meningococcal B Vaccine Aged Out No l onger eligible based on patient's age to complete this topic Meningococcal Vaccine Aged Out No ajit mary ellen eligible based on patient's age to complete this topic Rotavirus Vaccines Aged Out No longer eligible based on patient's age to complete this topic Insurance MEDICARE [facility] Care Teams Sawdust Drier Relationship Specialty Start Date End Date Harsha Arrieta DO [address] [place] [address] PCP - General 06/21/23
--- OUTSIDE RECORDS SUMMARY | 2025-05-07 12:20 | XMS_ITS | Referral Summary ---
Author Organization [facility] Address [address] [place] [address] Care Team Providers Care Sales Support Engineer Name Role Phone Harsha Arrieta DO Primary Care Provider [phone] Allergies Active Allergy Reactions Criticality Noted Date [...] 200 mg tabletIndication s:PAF (paroxysmal atrial fibrillation) (CMS/[facility]) 200mg once daily 90 tablet 3 12/13/19 [...] Assessment & Plan (08/11/2024 3:07 PM EDT): [id number]= 7 age, female, CHF, CAD/vascular disease, diabetes Currently on EKG patient is in sinus rhythm Continue amiodarone 200 mg a day and Cardizem 240 daily she remains on Eliquis anticoagulation without any bleeding tendencies Assessment & Plan (07/04/2023 12:45 PM EDT): - [id number] at least 5 for age, gender, hypertension, [...] artery disease of n ative artery of [place] heart with stable angina pectoris Overview (08/11/2024): [...] - 04/2022 TTE shows mild aortic regurgitation Social History Tobacco Use Types Packs/Day Years [...] 08/11/2024 2:20 PM EDT Plan of Treatment Not on file Insurance MEDICARE [facility] Care Teams Sales Support Engineer Relationship Specialty Start Date End Date Harsha Arrieta DO [address] [place] [address] PCP - General 06/21/23
--- OUTSIDE RECORDS SUMMARY | 2025-05-07 12:20 | XMS_ITS | Clinical Summary ---
Author Organization [facility] Address [address] [place] [address] Care Team Providers Care Supervisor Pastry Name Role Phone Unavailable Primary Care Provider Unavailabl e Medications Galantamine Hydrobromide 16 mg 24 hr capsule Take 1 tablet by mouth daily with breakfast. 30 capsule 3 10/03/2013 Active Social History Tobacco Use Types Packs/Day Years Used Date Smoking Tobacco: Never Assessed Comments Unknown Sex and Gender Information Value Date Recorded Sex Assigned at Not on file Legal Sex Female 10:18 AM EDT Gender Identity Not on file Sexual Orientation Not on file Plan of Treatment Not on file
[2025-05-07 13:33] LABS: Bilirubin Urine NEGATIVE (NEGATIVE); Blood Urine MODERATE (NEGATIVE); Clarity Urine CLOUDY (CLEAR); Color Urine DK. YELLOW (YELLOW); Glucose Urine UA NEGATIVE (NEGATIVE); Ketones Urine TRACE mg/dL (NEGATIVE); Leukocyte Esterase Urine LARGE (NEGATIVE); Nitrite Urine NEGATIVE (NEGATIVE); Protein Urine 100 mg/dL (NEG/TRACE); Specific Gravity Urine >=1.030 (1.005-1.025); Urobilinogen Urine 0.2 EU/dL (0.2-1.0)
== END 2025-05-07 12:16 | disposition home or self-care (01) ==
PROVIDERS: PCP Internal Medicine; Visit Provider Internal Medicine
DX: R30.0 Dysuria (principal)
CPT/HCPCS: 81003; 87086; 87106

== ENCOUNTER 2025-05-22 02:35 | Outpatient (RCR) | payer MEDICARE, SELFPAY | END 2025-06-21 16:50 | disposition home or self-care (01) | LOC: MM 02:35 | PROVIDERS: PCP Internal Medicine; Visit Provider Internal Medicine | DX: Z51.81 Encounter for therapeutic drug level monitoring (principal); Z79.01 Long term (current) use of anticoagulants; I48.0 Paroxysmal atrial fibrillation ==

== ENCOUNTER 2025-06-22 00:35 | Outpatient (RCR) | payer MEDICARE, SELFPAY | END 2025-07-19 13:12 | disposition home or self-care (01) | LOC: MM 00:35 | PROVIDERS: PCP Internal Medicine; Visit Provider Internal Medicine | DX: Z51.81 Encounter for therapeutic drug level monitoring (principal); Z79.01 Long term (current) use of anticoagulants; I48.0 Paroxysmal atrial fibrillation ==

== ENCOUNTER 2025-07-06 15:20 | Outpatient (OUT) | payer MEDICARE, SELFPAY ==
--- OUTSIDE RECORDS SUMMARY | 2025-03-05 06:10 | XMS_ITS ---
Author Organization [facility] Address [address] [place] [address] Care Team Providers Care Gill Box Operator Name Role Phone Miguel Ángel Day Unavailable [phone] REASON FOR VISIT rc right hip/leg pain injection 3/3 Encounters Encounter Location Date Provider Diagnosis [facility] [address] [facility] [address] [place] [address] 03/05/2025 Miguel Ángel Day Plan Of Treatment No Information Progress Notes * ANMOL MENACLARENCEOB: 5 (80 yo F)Acc No.[id number]:03/05/2025 Patient: FATUMA TAVERA Provider: Sergio Day MD :1945 A ge:80 Y S ex:Female Date:03/05/2025 Address:[address] [place], [place] [id number] Subjective: * Chief Complaints: * 1 . Rc right hip/leg pain injection 3/3. * Medical History: Objective: * Vitals: Assessment: Plan: * Treatment: Forms: * Images: * Electronic signature of Miguel Ángel Day MD on 07/06/2025 at 02:15 PM EDT Sign off status: Pending * Provider: Sergio Day MD Date: 03/05/2025 Generated for Patricki ng/Fabrightg/eTransmitting on: 07/06/2025 02:15 PM EDT
--- OUTSIDE RECORDS SUMMARY | 2025-07-06 15:24 | XMS_ITS | Clinical Summary ---
Author Organization [facility] Address [address] [place] [address] Care Team Providers Care Tutorial Laboratory Supervisor Name Role Phone Harsha Arrieta DO Primary Care Provider [phone] Allergies No known active allergies Medications ibandronate (Boniva) 3 MG/3ML solution inject 3 milliliter by intravenous route every 3 months over Intravenous Active acetaminophen (Tylenol) 500 MG tablet Take 1,000 mg by mouth every 8 (eight) hours if needed Active amiodarone (Pacerone) 200 MG tablet Take 200 mg by mouth Daily Active ALPRAZolam (Xanax) 0.25 MG tablet Take 0.25 mg by mouth in the morning and 0.25 mg at noon. 1/2 tab in the morning and 1 tab in the evening. Active dilTIAZem CD (Cardizem CD) 240 MG 24 hr capsule Take 240 mg by mouth Daily Active apixaban (Eliquis) 5 MG tablet Take 5 mg by mouth in the morning and 5 mg before bedtime. Active hydroCHLOROthiaz lulu (HYDRODiuril) 25 MG tablet Take 25 mg by mouth Daily Active lisinopril 20 MG tablet Take 20 mg by mouth Daily Active atorvastatin (Lipitor) 40 MG tablet Take 40 mg by mouth Daily Active dulaglutide (Trulicity) 1.5 MG/0.5ML solution pen-injector Inject 1.5 mg under the skin 1 (one) time per week Active miconazole (Micotin) 200 MG vaginal suppository Insert 200 mg into the vagina at bedtime As needed Active omeprazole (PriLOSEC) [address] capsule Take 10 mg by mouth in the morning. Take before meals. Do not crush or chew. As needed.. Active dextromethorphan -guaiFENesin (Mucinex DM) 30-600 MG 12 hr tablet Take 1 tablet by mouth every 12 (twelve) hours Do not crush, chew, or split. 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 karson 05/16/2024 Essential tremor 05/16/2024 GERD (gastroesophageal reflux disease) Hyperlipidemia, mixed 05/16/2024 Hypothyroid 05/16/2024 Stage 3b chronic kidney disease 05/16/2024 Closed fracture of shaft of femur 11/23/2023 Essential hypertension 09/25/2023 Overview (05/16/2024): Last Assessment & Plan: - stable, continue medication Last Assessment & Plan: - stable, continue medication Presence of right artificial hip joint 3 Family History Medical History Relation Name Comments Heart disease Brother Hypertension Brother Heart disease Father Hypertension Father Relation Name Status Comments Brother Father Social History Tobacco Use Types Packs/Day Years Used Date Smoking Tobacco: Never Smokeless Tobacco: Never Alcohol Use Standard Drinks/Week Comments Not Currently 0 (1 standard drink = 0.6 oz pur e alcohol) Comments Unknown Sex and Gender Information Value Date Recorded Sex Assigned at Not on file Legal Sex Female 6:56 PM EDT Gender Identity Not on file Sexual Orientation Not on file Last Filed Vital Signs Vital Sign Reading Time Taken Comments Blood Pressure 133/60 05/16/2024 3:05 PM EDT Pulse 61 05/16/2024 3:05 PM EDT Temperature 36.8 C (98.2 F) 05/16/2024 3:05 PM EDT Respiratory Rate - - Oxygen Saturation - - Inhaled Oxygen Concentration - - Weight - - Height - - Body Mass Index - - Plan of Treatment Not on file Insurance MEDICARE [facility] Care Teams Tutorial Laboratory Supervisor Relationship Specialty Start Date End Date Harsha Arrieta DO PCP - General Internal Medicine 05/16/24
--- OUTSIDE RECORDS SUMMARY | 2025-07-06 15:24 | XMS_ITS | Patient Health Record ---
Author Organization [facility] Address [address] [place] [address] Care Team Providers Care Dredge Engineer Name Role Phone Miguel Ángel Day Unavailable [phone] Donis Combs Unavailable [phone] Brenda Juarez Unavailable [phone] Allergies No Known Allergies Results Component Value Reference Range Notes XR FEMUR RIGHT (MIN 2 VIEWS) Reviewed date:02/15/2025 03:25:18 PM Interpretation: Performing Lab: Notes/Report: EXAMINATION: Performed at: [address] [place] [address] XR LEG LENGTH EVALUATION Reviewed date:01/23/2025 04:39:22 PM Interpretation: Performing Lab: Notes/Report: EXAMINATION: Performed at: [address] [place] [address] Reason For Referral No Information Medications Medication [...] Problem Status W/U Status Risk Notes Problem 801372514 Aftercare following joint replacement surgery (Z47.1) Active confirmed Problem 89964017 Leg length discrepancy (M21.70) Active confirmed Problem Localized, primary osteoarthritis of the pelvic region and thigh (542606226) 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) Active confirmed Problem 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) Active confirmed Problem 351196996 Type 2 diabetes mellitus without complications (E11.9) Active confirmed Problem 58883447 Other chronic pain (G89.29) Active confirmed Problem 286231153 Other fpc (current) drug therapy (Z79.899) Active confirmed Problem 181732233 Presence of righ t artificial hip joint (Z96.641) Active confirmed Problem Closed fracture of shaft of femur (05573809) Closed fracture of shaft of right femur, unspecified fracture morphology, initial encounter (S72.301A) Active confirmed Problem 1354096384787175 Arthritis of right hip (M16.11) Active confirmed Problem Osteopenia (872026084) Osteopenia of multiple sites (M85.89) Active confirmed Problem 240826309 Pain of right femur (M89.8X5) Active confirmed Problem 71632550 Closed fracture of shaft of right femur with routine healing, subsequent encounter (S72.301D) Active confirmed Vital Signs Height 5'4 in 01/22/2025 Weight 160 lbs 01/22/2025 BMI 27.46 01/22/2025 Encounters Encounter Location Date Provider Diagnosis [facility] [address] [place] [address] 01/22/2025 Brenda Ann Iliotibial band syndrome of right side M76.31 ; Pain in right hip M25.551 ; Trochanteric bursitis, right hip M70.61 ; Leg length discrepancy M21.70 ; Presence of right artificial hip joint Z96.641 and Primary osteoarthritis of left hip M16.12 [facility] [address] [place] [address] 08/15/2024 Donis Combs Closed fracture of shaft [...] Name Order Date Femur, right 2v - [id number] 10/13/2023 Femur, right 2v - [id number] 11/24/2023 Femur, right 2v - [id number] 01/19/2024 Femur, right 2v - 18748 08/15/2024 PT/OT - Eval and Treat 01/22/2025 SCANOGRAM 01/22/2025 ESR, CRP 01/22/2025 PELVIS - AP ONLY [id number] 01/22/2025 Insurance Providers Payer Name Payer Address Payer Phone Subscriber Number Group Number Insured Name Patient Relationship to Insured Coverage Start Date Coverage End [place] [address] [place] [address] [id number] FATUMA MENA Self - patient is the insured [facility] SUPPLEMENT [address] [place] [address] [id number] FATUMA MENA Self - patient is the [...]
--- OUTSIDE RECORDS SUMMARY | 2025-07-06 15:24 | XMS_ITS | Clinical Summary ---
Author Organization [facility] Address [address], [address] [place] [address] Care Team Providers Care Senior Case Manager Name Role Phone Harsha Arrieta Primary Care Provider [phone] Allergies Active Allergy Reactions Criticality Noted Date Comments Sertraline Low 01/16/2013 shaking Medications pravastatin (PRAVACHOL) 40 MG tablet Take 40 mg by mouth daily. Active lisinopril (PRINIVIL;ZESTR IL) 20 MG tablet Take 1 tablet by mouth daily Active diltiazem (CARDIZEM SR) 120 MG SR capsule Take 1 capsule by mouth 2 times daily Active ALPRAZolam (XANAX) 0.25 MG tablet Take 1 tablet by mouth 2 times daily. Takes 1/2 pill in am and one pill at night Active Ibandronate Sodium (BONIVA IV) Infuse intravenousl y. Takes this 4 times a year Active omeprazole (PRILOSEC) 10 MG capsule Take 1 capsule by mouth daily Active Calcium Carbonate-Vitam in D (CALCIUM + D) 600-200 MG-UNIT TABS Take by mouth daily. Active apixaban (ELIQUIS) 5 MG TABS tablet Take 1 tablet by mouth 2 times daily Active hydroCHLOROthia zide (HYDRODIURIL) 25 MG tablet Take 1 tablet by mouth daily Active glimepiride (AMARYL) 2 MG tablet Take 1 tablet by mouth every morning (before breakfast) Active atorvastatin (LIPITOR) 40 MG tablet Take 1 tablet by mouth daily Active Calcium Carb-Cholecalci ferol (CALTRATE 600+D3 PO) Take 1 tablet by mouth in the morning and at bedtime Active turmeric 500 MG CAPS Take 1 capsule by mouth daily Active oxybutynin (DITROPAN XL) 10 MG extended release tablet Take 1 tablet by mouth daily Active amiodarone (CORDARONE) 200 MG tablet Take 1 tablet by mouth daily Active dilTIAZem (CARDIZEM CD) 240 MG extended release capsule Take 1 capsule by mouth daily Active Active Problems Problem Noted Date Diagnosed Date Moderate malnutrition 09/27/2023 Aortic valve disorder 09/25/2023 09/25/2023 Overview (09/25/2023): Last Assessment & Plan: - 04/2022 TTE shows mild aortic regurgitation Atrial fibrillation 09/25/2023 09/25/2023 Overview (09/25/2023): Last Assessment & Plan: - [id number] at least 5 for age, gender, hypertension, [...] for quite some time beyond Holter monitor Coronary artery disease of n ative artery of [place] heart with stable angina pectoris 09/25/2023 09/25/2023 Overview (09/25/2023): Last Assessment & Plan: - stress test 10/2021 no acute reversible ischemia, mild anterior wall fixed defect versus breast attenuation - cardiac cath 2009 showed mild three-vessel disease Diabetes mellitus 09/25/2023 09/25/2023 Overview (09/25/2023): Last Assessment & Plan: -stable, not on insulin Hypertension 09/25/2023 09/25/2023 Overview (09/25/2023): Last Assessment & Plan: - stable, continue medication 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, right, with nonunion, subsequent encounter 09/24/2023 Presence of right artificial hip joint 3 09/25/2023 Chronic heart failure with preserved ejection fr action 07/04/2023 09/25/2023 Social History Tobacco Use Types Packs/Day Years Used Date Smoking Tobacco: Never Alcohol Use Standard Drinks/Week Comments Yes 0 (1 standard drink = 0.6 oz pur e alcohol) social Interpersonal Safety Domain Source: IP Abuse Scr eening Answer Date Recorded Read-Only, Retired: Physical Abuse Denies 09/25/2023 Read-Only, Retired: Verbal Abuse Denies 09/25/2023 Read-Only, Retired: Emotional abuse Denies 09/25/2023 Read-Only, Retired: Financial Abuse Denies 09/25/2023 Read-Only, Retired: Sexual abuse Denies 09/25/2023 Comments No Sex and Gender Information Value Date Recorded Sex Assigned at Not on file Legal Sex Female 2:48 PM EST Gender Identity Not on file Sexual Orientation Not on file Last Filed Vital Signs Vital Sign Reading Time Taken Comments Blood Pressure 132/74 09/30/2023 8:07 AM EST Pulse 74 09/30/2023 8:07 AM EST Temperature 36.7 C (98.1 F) 09/30/2023 8:07 AM EST Respiratory Rate 20 09/30/2023 11:57 AM EST Oxygen Saturation 95% 09/30/2023 8:07 AM EST Inhaled Oxygen Concentration - - Weight 68 kg (149 lb 14.4 oz) 09/25/2023 1:15 AM EDT Height 162.6 cm (5' 4 ) 09/25/2023 1:15 AM EDT Body Mass Index 25.73 09/25/2023 1:15 AM EDT Plan of Treatment Health Maintenance Due Date Last Done Comments Lipids 1955 Depression Screen 1957 Diabetic Alb to Cr ratio (uACR) test 1963 DTaP/Tdap/Td vaccine (1 - Tdap) 01/22/1964 DEXA (modify frequency per FRAX score) 01/22/2000 Respiratory Syncytial Virus (RSV) or age 60 yrs+ (1 - 1-dose 75+ series) 01/22/2020 Pneumococcal 50+ years Vaccine (2 of 2 - PCV) 07/03/2020 07/03/2019 Annual Wellness Visit (Medicare) 10/18/2023 COVID-19 Vaccine (4 - 2023- season) 2024 08/26/2021, 01/09/2021, 12/19/2020 GFR test (Diabetes, CKD 3-4, OR last GFR 15-59) 09/30/2024 09/30/2023, 09/29/2023, 09/28/2023, Additional history exists Flu vaccine (#1) 06/22/2025 09/06/2024, 03/2022, 08/26/2021, Additional history exists Shingles vaccine Completed 03/09/2022, 10/21/2021 Hepatitis A vaccine Aged Out No longe r eligible based on patient's age to complete this topic Hepatitis B vaccine Aged Out No longe r eligible based on patient's age to complete this topic Hib vaccine Aged Out No longer eligi ble based on patient's age to complete this topic Meningococcal (ACWY) vaccine Aged Out No longer eligible based on patient's age to complete this topic Meningococcal B vaccine Aged Out No l onger eligible based on patient's age to complete this topic Polio vaccine Aged Out No longer elig ible based on patient's age to complete this topic Medical Devices Implanted Type Area Foot Tender Device Identifier Shelf Expiration Date Model / Serial / Lot Nail Im [id number] [id number] Fem Tib Ti Josy Lck Rg Gld [place]-[employer]ail - [id number] Implanted:Qty: 1 on 09/25/2023 by Donis Combs MD at [facility] [employer] 06/27/2032 [id number] / / [id number] Screw Bne L30mm Dia5mm Ge Ti Int Capt Hex Lo Prof For Im - [id number] Implanted:Qty: 1 on 09/25/2023 by Donis Combs MD at [facility] [employer]- 06/28/2032 [id number] / / [id number] Screw Bne L30mm Dia5mm Ge Ti Int Capt Hex Lo Prof For Im - [id number] Implanted:Qty: 1 on 09/25/2023 by Donis Combs MD at [facility] 06/12/2032 [id number] / / [id number] Screw Bne L47.5mm Dia5mm Ge Tib Ti Int Hex Lo Prof For Im - [id number] Implanted:Qty: 1 on 09/25/2023 by Donis Combs MD at [facility] 07/26/2032 [id number] / [id number] Procedures Procedure Name Priority Date/Time Associated Diagnosis Comments GLOMERULAR FILTRATION RATE, ESTIMATED Routine 09/30/2023 6:59 AM EST from Last 3 Months or Most Recently Relevant to Health Maintenance Results * Glomerular Filtration Rate, Estimated (09/30/2023 6:59 AM EST) Est, Glom Filt Rate >60 >60 ml/min/1.7 3m2 09/30/2023 8:44 AM EST [facility] Comment: Pediatric calculator link https://www.kidney.org/professionals/kdoqi/gfr_calculatorped Effective Aug 24, 2022 [...] therapy that affects renal tubular secretion. 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
--- OUTSIDE RECORDS SUMMARY | 2025-07-06 15:24 | XMS_ITS | Clinical Summary ---
Author Organization [facility] Address [address] [place] [address] Care Team Providers Care Mail Processing Machine Operator Name Role Phone Harsha Arrieta DO Primary Care Provider [phone] Allergies Active Allergy Reactions Criticality Noted Date [...] 200 mg tabletIndication s:PAF (paroxysmal atrial fibrillation) (CMS/[facility]) 200mg once daily 90 tablet 3 12/13/19 [...] Assessment & Plan (08/11/2024 3:07 PM EDT): [id number]= 7 age, female, CHF, CAD/vascular disease, diabetes Currently on EKG patient is in sinus rhythm Continue amiodarone 200 mg a day and Cardizem 240 daily she remains on Eliquis anticoagulation without any bleeding tendencies Assessment & Plan (07/04/2023 12:45 PM EDT): - [id number] at least 5 for age, gender, hypertension, [...] artery disease of n ative artery of [place] heart with stable angina pectoris Overview (08/11/2024): [...] season) 2024 08/26/2021, 01/09/2021, 12/19/2020 Influenza Vaccine (#1) 2025 2, 08/26/2021, 09/04/2020, Additional history exists Zoster Vaccines [...] age to complete this topic Insurance MEDICARE [facility] Care Teams Mail Processing Machine Operator Relationship Specialty Start Date End Date Harsha Arrieta DO [address] [place] [address] PCP - General 06/21/23
--- OUTSIDE RECORDS SUMMARY | 2025-07-06 15:24 | XMS_ITS | Clinical Summary ---
Author Organization [facility] Address [address] [place] [id number] Care Team Providers Care Teamcenter Solution Architect Name Role Phone Unavailable Primary Care Provider [...]
--- OUTSIDE RECORDS SUMMARY | 2025-07-06 15:24 | XMS_ITS | Encounter Summary ---
Author Organization [facility] Address [address] [place] [address] Care Team Providers Care Director Of Exhibit Development Name Role Phone Harsha Arrieta DO Primary Care Provider [phone] Reason for Visit * Reason Comments Med Refill Encounter Details Date Type Department Care Team (Late st Contact Info) Description 12/10/2023 Refill [facility] at [facility] [address] [place] [address] Santiago Trinidad MD [address] [place] [phone] PAF (paroxysmal atrial fibrillation) (CMS/HCC) Social History [...] fibrillation documented in this encounter Care Teams Director Of Exhibit Development Relationship Specialty Start Date End Date Harsha Arrieta DO [address] [facility] [address] PCP - General 06/21/23 documented as of this encounter
--- OUTSIDE RECORDS SUMMARY | 2025-07-06 15:30 | XMS_ITS | CCD ---
Author Organization [facility] CliniSy[facility] Care Team Providers Care 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 Name Role Phone Harsha Andrew Unavailable KAMRAN, DR VALDEZ Consulting Unavailable BALL, [...] Unavailable BALL, DR VALDEZ Primary Care Unavailable KARASIK ., DR BARAHONA Attending Unavailabl e KARASIK ., DR BARAHONA Admitting Unavailabl e ZIEBER, DR CHING Hill Consulting Unavailable Seamus SANDHU, Isidro Dahl Attending Unavaila ble Ball DO, [facility] Primary Care Unavail able Seamus SANDHU, Isidro Dahl Attending Unavaila ble Denike DO, Frank Del Rosario Attending Unavaila ble Ball DO, [facility] Primary Care Unavail able Seamus SANDHU, Isidro Dahl Attending Unavaila ble Ball DO, [facility] Primary Care Unavail able Seamus SANDHU, Isidro Dahl Attending Unavaila ble Ball DO, [facility] Primary Care Unavail able DAKOTA MAK Admitting Unavailable RAY, CESAR Referring Unavailable KAMRAN, HARSHA Primary Care Unavailable FATMATA (LATOSHA), JUSTIN Berry Attending Santos UNGER, TUTU Hill Attending Unavailable ALLYSSA, SANTIAGO Attending Unavailable WILL, MATT Attending Unavailable ALLYSSA, SANTIAGO Attending Unavailable SANTIAGO SPIVEY Admitting Unavailable ALLYSSA, SANTIAGO Attending Unavailable SANTIAGO SPIVEY Referring Unavailable SANTIAGO SPIVEY Referring Unavailable KARLEE PEARSON Attending Unavailable Kamran SANDHU, Harsha Wren Primary Care Provider Kamran HI, Harsha Primary Care Provider RICHARD DAY Referring Unavailable KAMRAN, HARSHA Primary Care Unavailable CHING COHEN Referring Unavailable KAMRAN, HARSHA Primary Care Unavailable KAMRAN, HARSHA Primary Care Unavailable CHING COHEN Referring Unavailable KAMRAN, HARSHA Primary Care Unavailable RICHARD DAY Referring Unavailable KAMRAN, HARSHA Primary Care Unavailable Pay Garrett HI Attending Provider [phone] Kamran HI, Harsha Primary Care Provider Omari SANDHU, Sandy Admit Provider Jose Jignesh RUSSELL Other Provider UnavailEverardo Landrum MD Other Provider Anum Grove APRN Other Provider Donell Rosenbaum DO Other Provider Alec Alvarez MD Attending Provider Pay, Garrett Admitting Unavailable Pay, Garrett Attending Unavailable Kamran, Harsha Admitting Unavailable Ball, Harsha Primary Care Unavailable Ball, Harsha Attending Unavailable Kamran, Harsha Primary Care Unavailable Alec Alvarez Attending Unavailab le Clonch, Jignesh Consulting Unavailable Semaskiene, Sandy Admitting Unavailable PerezEverardo Consulting Unavailable Turovskaya, Anum Consulting Unavailable Donell Rosenbaum Consulting Unavailable Kamran HI, Harsha Primary Care Provider [phone] Donell Rosenbaum DO Attending Provider Kamran HI, Harsha Attending Provider Kamran HI, Harsha Primary Care Provider [phone] Harsha Andrew DO Attending Provider [phone] Allergies Allergy Classification Reported Allergen(s) Allergy Type Date of Onset Reaction(s) Facility (20 sources) Linagliptin Drug Allergy 02-14-20 24 Unknown, Unknown Reaction [facility] (20 sources) metFORMIN Drug Allergy 11-22-19 20 Unknown, Unknown Reaction [facility] (20 sources) Sertraline; Translations: [SERTRALINE] Drug Allergy 01-16-20 13 Unknown, Unknown Reaction [facility] (20 sources) Sulfacetamide Drug Allergy 02-14-20 24 Unknown, Unknown Reaction [facility] (2 sources) Linagliptin Drug Allergy Unknown [facility] (1 source) metFORMIN Drug Allergy [facility] (1 source) Sertraline Drug Allergy 05-01-20 13 [facility] (1 source) Sulfonamides (Antibiotic) Drug allergy (disorder) [facility] (2 sources) Sertraline Drug Allergy 11-22-19 20 SERTRALINE HCL Comment:Freete xt Needs Updated. [employer] [place] Other (2 sources) Allergies Reconciled Propensity to adverse reactions Unknown [employer] [place] Other (20 sources) Sulf-10 Drug allergy Comment:sulfa drugs [employer] [place] Other (2 sources) patient allergy list reviewed by nurse or physicia Propensity to adverse reactions 11-22-19 Comment:Done [employer] [place] Other (14 sources) Sulfonamides (Antibiotic); Translations: [Sulfa (Sulfonamide Antibiotics)] Allergy to substance 02-14-20 Comment:sulfa drugs [facility] (1 source) Linagliptin Drug Allergy 05-04-20 [facility] (1 source) metFORMIN Drug Allergy 05-04-20 [facility] (1 source) Sertraline Drug Allergy 05-04-20 [facility] (1 source) Sulfacetamide Drug Allergy 05-04-20 [facility] Medications Current Medications Medication Drug Class(es) Dates Sig (Normalized) Sig (Original) acetaminophen 500 mg oral tablet (20 sources) Start: 05-04-2025 take 4 tablets by mouth every eight hours Acetaminophen 500 mg tablet Active 2000 MG PO Every 8 hours May 04, 2025 11:49am Complies with drug therapy Start: 02-02-2025 End: 05-04-2025 take 2 tablets by mouth every eight hours Acetaminophen 500 mg Tablet Discontinued 1000 MG PO Every 8 hours 42 7 February 02, 2025 12:00am May 04, 2025 11:50am Start: 02-14-2024 take 2 tablets by mo uth every eight hours as needed acetaminophen (Tylenol) 500 MG tablet Take 1,000 mg by mouth every 8 (eight) hours if needed 02/14/2024 Active Start: 02-14-2024 End: 02-02-2025 Acetaminophen (Acetaminophen Pain Relief) 500 mg tablet Discontinued 1000 MG PO Three times daily as needed for pain February 14, 2024 12:00am February 02, 2025 10:04am aspirin 81 mg delayed release oral tablet (3 sources) Platelet Aggregation Inhibitor, Nonsteroidal Anti-inflammatory Drug take 1 tablet by mouth every twenty-four hours Aspirin 81 MG 1 tablet Orally Once a day Active Calcium Carb-Cholecalcifer ol (CALTRATE 600+D3 PO) (2 sources) take 1 tablet by mouth at bedtime Calcium Carb-Cholecalcife rol (CALTRATE 600+D3 PO) Take 1 tablet by mouth in the morning and at bedtime Active Calcium Carbonate+Vitamin D (4 sources) Calcium Carbonate+Vitamin D Active Caltrate 600+D Plus Minerals 600-800 MG-UNIT (20 sources) take 600-800 tablets by mouth twice daily Caltrate 600+D Plus Minerals 600-800 MG-UNIT 1 tablet Orally Twice a day Active carvedilol 25 mg oral tablet (19 sources) alpha-Adrenergic Jhon, beta-Adrenergic Jhon Start: 023 take 1 tablet by mouth every twelve [...] Twice daily for 15 days Jan, Active ciprofloxacin 250 mg oral tablet (15 sources) Quinolone Antimicrobial Start: 06-21-2023 take 1 tablet by mouth every twelve hours Ciprofloxacin HCl 250 MG 1 tablet Orally every 12 hrs for 5 days May, Active 12 hr dextromethorphan hydrobromide 30 mg / guaiFENesin 600 mg extended release oral tablet (2 sources) Uncompetitive N-sknmuy-V-aspartate Receptor Antagonist, Sigma-1 Agonist take 1 tablet by mouth every twelve hours dextromethorphan- guaiFENesin (Mucinex DM) 30-600 MG 12 hr tablet Take 1 tablet by mouth every 12 (twelve) hours Do not crush, chew, or split. Active docusate sodium 100 mg oral capsule (20 sources) Start: 02-02-2025 End: 05-22-2025 take 1 capsule by mouth twice daily Docusate Sodium (Colace) 100 mg capsule Active 100 MG PO Twice daily 180 90 May 22, 2025 10:48am Complies with drug therapy Start: 02-14-2024 End: 02-02-2025 take 1 capsule by mouth once daily as needed Docusate Sodium (Colace) 100 mg capsule Discontinued 100 MG PO Daily as needed for STOOL SOFTNER February 14, 2024 12:00am February 02, 2025 10:04am Flash Glucose Sensor (Freestyle Chelsea 2 Sensor) kit (19 sources) Start: 05-04-2025 Flash Glucose Sensor (Freestyle Chelsea 2 Sensor) kit Active 0 .ROUTE .COMPLEX 1 May 04, 2025 12:32pm USE TO CHECK BLOOD SUGAR TRANCUTANEOUS FOUR TIMES DAILY Start: 03-12-2025 End: 05-04-2025 Flash Glucose Sensor (Freest yle Chelsea 2 Sensor) kit Discontinued 0 .ROUTE .COMPLEX 1 March 12, 2025 12:31pm May 04, 2025 12:32pm USE TO CHECK BLOOD SUGAR TRANCUTANEOUS FOUR TIMES DAILY Start: 03-12-2025 Flash Glucose Sensor (Freestyle Chelsea 2 Sensor) kit Active 0 .ROUTE .COMPLEX 1 March 12, 2025 12:31pm USE TO CHECK BLOOD SUGAR TRANCUTANEOUS FOUR TIMES DAILY Start: 10-02-2024 End: 03-12-2025 Flash Glucose Sensor (Freest yle Chelsea 2 Sensor) kit Discontinued 0 .ROUTE .COMPLEX 2 October 02, 2024 6:50pm March 12, 2025 12:31pm USE TO CHECK BLOOD SUGAR TRANCUTANEOUS FOUR TIMES DAILY Start: 10-02-2024 Flash Glucose Sensor (Freestyle Chelsea 2 Sensor) kit Active 0 .ROUTE .COMPLEX 2 October 02, 2024 6:50pm USE TO CHECK BLOOD SUGAR TRANCUTANEOUS FOUR TIMES DAILY Start: 10-02-2024 Flash Glucose Sensor (Freestyle Chelsea 2 Sensor) kit Active 0 .ROUTE .COMPLEX 2 October 02, 2024 5:50pm USE TO CHECK BLOOD SUGAR TRANCUTANEOUS FOUR TIMES DAILY Start: 10-02-2024 End: 10-02-2024 Flash Glucose Sensor (Freest yle Chelsea 2 Sensor) kit Discontinued 0 .Route 2 October 02, 2024 1:00am October 02, 2024 6:50pm to test blood sugar 4 times daily Start: 10-02-2024 End: 10-02-2024 Flash Glucose Sensor (Freest yle Chelsea 2 Sensor) kit Discontinued 0 .Route 2 October 02, 2024 12:00am October 02, 2024 5:50pm to test [...] oral tablet (20 sources) Thiazide Diuretic Start: 05-10-2025 End: 05-17-2025 take 1 tablet by mouth once daily in the morning Hydrochlorothiazide 25 mg tablet Active 25 MG PO Every morning May 17, 2025 8:38am Complies with drug therapy Start: 01-31-2024 End: 05-10-2025 take 1 tablet by mouth once daily Hydrochlorothiazide 25 mg tablet Discontinued 0 .ROUTE .COMPLEX January 31, 2024 12:41pm May 10, 2025 11:41am Take 1 tablet by mouth once daily Start: 01-31-2024 End: 01-31-2024 take 1 tablet by mouth once daily Hydrochlorothiazide 25 mg tablet Discontinued 25 MG PO Daily January 31, 2024 12:00am January 31, 2024 12:41pm Ibadronate (2 sources) Ibandronate Sodi um (BONIVA IV) Infuse intravenously. Takes this 4 times a year Active 3 ml ibandronic acid 1 mg/ml prefilled syringe (6 sources) Bisphosphonate inject 3 mL intravenously every three months ibandronate (Boniva) 3 MG/3ML solution inject 3 milliliter by intravenous route every 3 months over Intravenous Active Boniva Active Insulin Lispro (Humalog Kwikpen Insulin) 100 unit/mL insulin pen (5 sources) Start: 03-13-2025 inject 1 dose by subcutaneous injection once daily Insulin Lispro (Humalog Kwikpen Insulin) 100 unit/mL insulin pen Active 0 sliding scale dose SUBCUT Use as Directed March 13, 2025 2:47pm maximum daily dose 60 units Please contact the information source for Protocol details. Start: 03-13-2025 End: 03-13-2025 inject 1 dose by subcutaneous injection once daily Insulin Lispro (Humalog Kwikpen Insulin) 100 unit/mL insulin pen Discontinued 0 sliding scale dose SUBCUT Use as Directed March 13, 2025 2:44pm March 13, 2025 2:47pm maximum daily dose 60 units Please contact the information source for Protocol details. Start: 03-12-2025 End: 03-13-2025 inject 1 dose by subcutaneous injection once daily Insulin Lispro (Humalog Kwikpen Insulin) 100 unit/mL insulin pen Discontinued 0 sliding scale dose SUBCUT Use as Directed March 12, 2025 12:27pm March 13, 2025 2:46pm maximum daily dose 60 units Please contact the information source for Protocol details. Start: 02-19-2025 End: 03-12-2025 Insulin Lispro (Humalog Kwik pen Insulin) 100 unit/mL insulin pen Discontinued 1 sliding scale dose SUBCUT Use as Directed February 19, 2025 12:00am March 12, 2025 12:31pm Start: 02-19-2025 Insulin Lispro (Humalog Kwikpen Insulin) 100 unit/mL insulin pen Active 1 sliding scale dose SUBCUT Use as Directed February 19, 2025 12:00am miconazole nitrate 20 mg/ml vaginal cream (18 sources) Azole Antifungal Start: 05-09-2025 End: 06-15-2025 Miconazole Nitrate (Monistat 7) 2 % cream Active 1 APPLICATOR VAGINAL Daily at bedtime 45 7 June 15, 2025 2:13pm Complies with drug therapy Start: 02-14-2024 End: 05-04-2025 Miconazole Nitrate (Antifung al (Miconazole)) 2 % cream Discontinued 1 APPLIC TOPICAL Daily as needed for PRN February 14, 2024 12:00am May 04, 2025 11:48am miconazole (Sander tin) 200 MG vaginal suppository Insert 200 mg into the vagina at bedtime As needed Active omeprazole 10 mg delayed release oral capsule (20 sources) Proton Pump Inhibitor Start: 02-03-2024 End: 05-22-2025 take 1 capsule by mouth once daily Omeprazole 10 mg capsule,delayed release(DR/EC) Active 10 MG PO Daily 90 May 22, 2025 10:49am Complies with drug therapy take 1 tablet by mouth once gwendolyn [...] Take 40 mg by mouth daily. Active tiZANidine 2 mg oral capsule (4 sources) Central alpha-2 Adrenergic Agonist Start: End: take 1 capsule by mouth once daily at bedtime Tizanidine 2 mg capsule Active 2 MG PO Daily at bedtime May 22, 2025 10:51am Complies with drug therapy turmeric extract 500 mg oral capsule (8 sources) take 1 capsule by mouth once daily turmeric 500 MG CAPS Take 1 capsule by mouth daily Active take 400 mg by mouth once daily Turmeric (QC TUMERIC COMPLEX PO) Take 400 mg by mouth Daily Active Turmeric 400 MG as directed Orally Active warfarin sodium 5 mg oral tablet (10 sources) Vitamin K Antagonist Start: 05-22-2025 take 2.5 mg by mouth once daily Warfarin 5 mg tablet Active 5 MG PO Daily May 22, 2025 9:57am 2.5 mg on Wed, Wed, , Wed, , Wednesday 5 mg on Wednesday Complies with drug therapy Start: 07-18-2024 End: 05-22-2025 take 1 tablet by mouth once daily Warfarin 2 mg tablet Discontinued 2 MG PO Daily July 18, 2024 12:00am May 22, 2025 9:58am Completed/Discontinued Medications Medication Drug Class(es) Dates Sig (Normalized) Sig (Original) Accu-Chek SmartView - (20 sources) Accu-Chek SmartV iew - as directed In Vitro Not-Taking Accu-Chek SmartV iew - as directed In Vitro Active ALPRAZolam 0.25 mg oral tablet (20 sources) Benzodiazepine Start: 06-19-2024 End: 07-06-2025 take 1 tablet by mouth twice daily as needed for anxiety Alprazolam 0.25 mg tablet Discontinued 0.25 MG PO Twice daily as needed for anxiety 08 26February 02, 2025 10:01am March 17, 2025 5:02pm Start: 02-14-2024 End: 06-19-2024 take 0.5 tablet by mouth twice daily in the morning, then take 1 tablet by mouth once daily at bedtime Alprazolam 0.25 mg tablet Discontinued 0.25 MG PO Twice daily February 14, 2024 1:58pm June 19, 2024 1:16pm 1/2 tablet in am and 1 tablet qhs Start: 09-30-2023 End: 02-14-2024 take 1 tablet by mouth twice daily Alprazolam 0.25 mg tablet Discontinued 0.25 MG PO Twice daily February 03, 2024 12:00am February 14, 2024 2:03pm Start: 04-05-2023 take 1 tablet by roman th every eight hours ALPRAZolam 0.25 MG 1 tablet Orally THREE TIMES A DAY March, Active take 1 tablet by roman th every eight hours ALPRAZolam 0.25 MG 1 tablet Orally THREE TIMES A DAY Active amiodarone hydrochloride 200 mg oral tablet (20 sources) Antiarrhythmic Start: 02-02-2024 End: 05-17-2025 take 1 tablet by mouth once daily Amiodarone 200 mg tablet Discontinued 200 MG PO Daily May 10, 2025 4:07pm May 17, 2025 8:39am apixaban 5 mg oral tablet (20 sources) Factor Xa Inhibitor Start: 02-01-2023 End: 07-18-2024 take 1 tablet by mouth twice daily Apixaban 5 mg tablet Discontinued 5 MG PO Twice daily February 03, 2024 12:00am July 18, 2024 1:59pm atorvastatin 40 mg oral tablet (20 sources) HMG-CoA Reductase Inhibitor Start: 05-10-2025 End: 05-17-2025 take 1 tablet by mouth once daily at bedtime Atorvastatin 40 mg tablet Discontinued 40 MG PO Daily at bedtime 90 May 10, 2025 4:07pm May 17, 2025 8:39am Start: 02-07-2024 End: 05-10-2025 take 1 tablet by mouth once daily in the evening Atorvastatin 40 mg tablet Discontinued 0 .ROUTE .COMPLEX February 07, 2024 1:28pm May 10, 2025 11:41am TAKE 1 TABLET BY MOUTH ONCE DAILY IN THE EVENING Start: 02-03-2024 End: 02-07-2024 take 1 tablet by mouth once daily in the evening Atorvastatin 40 mg tablet Discontinued 40 MG PO Every evening February 03, 2024 12:00am February 07, 2024 1:28pm azithromycin 250 mg oral tablet (10 sources) Macrolide Antimicrobial Start: 08-30-2023 Azithromycin 250 MG as directed Orally daily for 5 days Aug, Not-Taking calcium carbonate 1500 mg / cholecalciferol 200 unt oral tablet (15 sources) Vitamin D Start: 02-03-2024 End: 02-14-2024 take 1 tablet by mouth once daily Calcium Carbonate-Vitamin D3 600 mg-5 mcg (200 unit) tablet Discontinued 1 TAB PO Daily February 03, 2024 12:00am February 14, 2024 1:59pm cephalexin 250 mg oral capsule (19 sources) Cephalosporin Antibacterial Start: 02-02-2025 End: 02-19-2025 take 1 capsule by mouth twice daily Cephalexin 250 mg capsule Discontinued 250 MG PO Twice daily 6 3 February 02, 2025 12:00am February 19, 2025 1:45pm Start: 06-25-2023 take 1 capsule by mouth every eight hours Contour Test - (20 sources) Contour Test - U se to test home BS In Vitro daily for 50 days Not-Taking Contour Test - U se to test home BS In Vitro daily for 50 days Active Contour Test - a s directed In Vitro Active cyclobenzaprine hydrochloride 10 mg oral tablet (5 sources) Muscle Relaxant Start: 02-02-2025 End: 05-04-2025 take 1 tablet by mouth every eight hours as needed for muscle spasms Cyclobenzaprine 10 mg Tablet Discontinued 10 MG PO Every 8 hours as needed for Muscle Spasm 0 February 02, 2025 12:00am May 04, 2025 12:12pm 24 hr dilTIAZem hydrochloride 240 mg extended release oral tablet (20 sources) Calcium Channel Jhon Start: 02-03-2024 End: 05-17-2025 take 1 tablet by mouth once daily Diltiazem Hcl 240 mg tablet extended release 24 hr Discontinued 240 MG PO Daily 90 90 May 10, 2025 4:07pm May 17, 2025 8:39am Start: 07-16-2023 take 1 capsule by mo uth every twenty-four hours take 1 capsule by mouth once brando ly dilTIAZem (CARDIZEM CD) 240 MG extended release capsule Take 1 capsule by mouth daily Active take 1 capsule by mouth twice da mady diltiazem (CARDIZEM SR) 120 MG SR capsule Take 1 capsule by mouth 2 times daily Active take 1 tablet by roman every twenty-four hours dilTIAZem HCl ER 240 MG 1 tablet Orally Once a day Active take 1 tablet by mouth once gwendolyn y dilTIAZem HCl ER 240 MG 1 tablet Orally Once a day Active docusate sodium 50 mg / sennosides, retirement 8.6 mg oral tablet (5 sources) Start: 02-02-2025 End: 05-04-2025 take 2 tablets by mouth twice daily Sennosides-Docusate Sodium 8.6-50 mg Tablet Discontinued 2 TAB PO Twice daily February 02, 2025 12:00am May 04, 2025 11:48am 0.5 ml dulaglutide 3 mg/ml auto-injector (20 sources) GLP-1 Receptor Agonist Start: 12-06-2024 End: 05-04-2025 Dulaglutide (Trulicity) 1.5 mg/0.5 mL pen injector Discontinued 1.5 MG SUBCUT every week 2 December 06, 2024 1:07pm May 04, 2025 11:47am Start: 10-01-2024 End: 12-06-2024 Dulaglutide (Trulicity) 1.5 mg/0.5 mL pen injector Discontinued 0 .ROUTE .COMPLEX October 01, 2024 9:37pm December 06, 2024 12:38pm INJECT 1 SYRINGE SUBCUTANEOUSLY ONCE A WEEK Start: 04-13-2024 End: 10-01-2024 Dulaglutide 1.5 mg/0.5 mL pe n injector Discontinued 1.5 MG SUBCUT every week 2 April 13, 2024 11:18am October 01, 2024 9:39pm Start: 01-31-2024 End: 04-13-2024 Dulaglutide (Trulicity) 0.75 mg/0.5 mL pen injector Discontinued 0.75 MG SUBCUT As Directed January 31, 2024 12:29pm April 13, 2024 11:22am Start: 11-12-2023 Trulicity 0.75 MG/0.5ML as directed Subcutaneous Oct, Active inject 0.5 mL by sub cutaneous injection every week Trulicity 0.75 MG/0.5ML INJECT 0.5ML SYRINGE SUBCUTANEOUSLY ONCE A WEEK Not-Taking Ferrex 150 Forte 150-1-25 MG-MG-MCG (3 sources) [...] 1 MG PO Daily February 14, 2024 2:00pm April 13, 2024 11:23am Start: 02-03-2024 End: 02-14-2024 take 2 tablets by mouth once daily Glimepiride 1 mg tablet Discontinued 2 MG PO Daily February 03, 2024 12:00am February 14, 2024 2:03pm Start: 02-03-2024 End: 02-14-2024 take 2 mg [...] ml insulin glargine 100 unt/ml pen injector (20 sources) Insulin Analog Start: 02-19-2025 End: 05-22-2025 inject 10 [IU] by subcutaneous injection once daily in the evening Insulin Glargine (Lantus Solostar U-100 Insulin) 100 unit/mL (3 mL) insulin pen Discontinued 10 UNIT SUBCUT Every evening 15 90 March 12, 2025 12:26pm May 22, 2025 10:52am Start: 02-03-2024 End: 02-14-2024 inject 10 [IU] by subcutaneous injection once daily in the evening Insulin Glargine 100 unit/mL (3 mL) insulin pen Discontinued 10 UNIT SUBCUT Every evening February 03, 2024 12:00am February 14, 2024 2:00pm Start: 11-12-2023 inject 10 [IU] by blum bcutaneous injection once in the morning Lantus SoloStar 100 UNIT/ML 10 units Subcutaneous q am Oct, Active 3 ml insulin lispro 100 unt/ml pen injector (18 sources) Insulin Analog Start: 03-13-2025 End: 06-25-2025 Insulin Lispro (Humalog Kwik pen Insulin) 100 unit/mL insulin pen Discontinued 0 sliding scale dose SUBCUT Use as Directed Protocol: *If the corrective scale dose has been administered within the past 4 hours, do not use corrective scale again unless approved by prescriber* Condition: Custom Scale Condition: Dose/Route: Instructions: Condition: Fingerstick Blood Glucose Dose/Route: Insulin Units Condition: 131-180 mg/dl Dose/Route: 2 units Condition: 181-240 mg/dl Dose/Route: 4 units Condition: 241-300 mg/dl Dose/Route: 6 units Condition: 301-350 mg/dl Dose/Route: 8 units Condition: 351-400 mg/dl Dose/Route: 10 units Condition: Greater than 400 mg/dl Dose/Route: 12 units 15 90 June 25, 2025 5:08pm June 25, 2025 5:09pm maximum daily dose 60 units Please contact the information source for Protocol details. Start: 03-12-2025 End: 03-13-2025 Insulin Lispro (Humalog Kwik pen Insulin) 100 unit/mL insulin pen Discontinued 0 sliding scale dose SUBCUT Use as Directed Protocol: *If the corrective scale dose has been administered within the past 4 hours, do not use corrective scale again unless approved by prescriber* Condition: Custom Scale 1:___ Instructions: GIVE 1 UNIT OF RAPID ACTING INSULIN FOR EVERY ___MG GLUCOSE Instructions: STARTING AT 150MG AT BG CHECKS Condition: Dose/Route: Instructions: Condition: Fingerstick Blood Glucose Dose/Route: Insulin Units Condition: mg/dl Dose/Route: 1 unit Condition: mg/dl Dose/Route: 2 units Condition: mg/dl Dose/Route: 3 units Condition: mg/dl Dose/Route: 4 units Condition: mg/dl Dose/Route: 5 units Condition: mg/dl Dose/Route: 6 units Condition: mg/dl Dose/Route: 7 units Condition: mg/dl Dose/Route: 8 units Condition: mg/dl Dose/Route: 9 units Condition: mg/dl Dose/Route: 10 units Dose/Route: 11 units Condition: Greater than or = 400 mg/dl Instructions: Call Provider 15 90 March 12, 2025 12:27pm March 13, 2025 2:46pm maximum daily dose 60 units Please contact the information source for Protocol details. Start: 02-19-2025 End: 03-12-2025 Insulin Lispro (Humalog Kwik pen Insulin) 100 unit/mL insulin pen Discontinued 1 sliding scale dose SUBCUT Use as Directed February 19, 2025 12:00am March 12, 2025 12:31pm Start: 02-03-2024 End: 02-14-2024 inject 4-14 [IU] by subcutaneous injection at dinner Insulin Lispro 100 unit/mL insulin pen Discontinued 1 sliding scale dose SUBCUT Use as Directed February 03, 2024 12:00am February 14, 2024 2:00pm inject 4-14 units under skin with breakfast, with lunch, and with evening meal Start: 02-03-2024 End: 02-14-2024 inject 4-14 [IU] by subcutaneous injection at dinner Insulin Lispro Discontinued 1 sliding scale dose SUBCUT Use as Directed February 03, 2024 12:00am February 14, 2024 2:00pm inject 4-14 units under skin with breakfast, with lunch, and with evening meal Insulin Lispro 100 unit/mL insulin pen (5 sources) Start: 02-03-2024 End: 02-14-2024 inject 4-14 [IU] by subcutaneous injection at dinner Insulin Lispro 100 unit/mL insulin pen Discontinued 1 sliding scale dose SUBCUT Use as Directed February 03, 2024 12:00am February 14, 2024 2:00pm inject 4-14 units under skin with breakfast, with lunch, and with evening meal Start: 02-03-2024 End: 02-14-2024 inject 4-14 [IU] by subcutaneous injection at dinner Insulin Lispro 100 unit/mL insulin pen Discontinued 1 sliding scale dose SUBCUT Use as Directed February 02, 2024 11:00pm February 14, 2024 1:00pm inject 4-14 units under skin with breakfast, with lunch, and with evening meal levothyroxine sodium 0.025 mg oral tablet (20 sources) l-Thyroxine Start: 01-03-2025 End: 05-17-2025 take 1 tablet by mouth once daily Levothyroxine 25 mcg tablet Discontinued 25 MCG PO Daily May 10, 2025 4:08pm May 17, 2025 8:39am Start: 09-01-2024 End: 01-03-2025 take 1 tablet by mouth once daily Levothyroxine 25 mcg tablet Discontinued 0 .ROUTE .COMPLEX October 30, 2024 5:56pm January 03, 2025 3:49pm Take 1 tablet by mouth once daily Start: 03-01-2024 End: 09-01-2024 take 1 tablet by mouth once daily Levothyroxine 25 mcg tablet Discontinued 25 MCG PO Daily August 29, 2024 12:32pm September 01, 2024 2:58pm Start: 02-25-2024 End: 03-01-2024 take 1 capsule by mouth once daily Levothyroxine 25 mcg capsule Discontinued 25 MCG PO Daily March 01, 2024 12:18pm March 01, 2024 1:19pm lisinopril 20 mg oral tablet (20 sources) Angiotensin Converting Enzyme Inhibitor Start: 05-10-2025 End: 05-17-2025 take 1 tablet by mouth once daily Lisinopril 20 mg tablet Discontinued 20 MG PO Daily 90 90 May 10, 2025 4:08pm May 17, 2025 8:39am Start: 04-18-2024 End: 05-10-2025 take 1 tablet by mouth once daily Lisinopril 20 mg tablet Discontinued 0 .ROUTE .COMPLEX 90 April 18, 2024 2:27pm May 10, 2025 11:41am Take 1 tablet by mouth once daily Start: 04-18-2024 take 1 tablet by roman th once daily Lisinopril Active 0 .ROUTE .COMPLEX 90 April 18, 2024 2:27pm Take 1 tablet by mouth once daily Start: 02-03-2024 End: 04-18-2024 take 1 tablet by mouth once daily Lisinopril 20 mg tablet Discontinued 20 MG PO Daily February 03, 2024 12:00am April 18, 2024 2:27pm melatonin 5 mg oral capsule (15 sources) Start: 02-14-2024 End: 05-04-2025 take 1 capsule by mouth once daily at bedtime as needed for sleep Melatonin 5 mg capsule Discontinued 5 MG PO Daily at bedtime as needed for SLEEP AID February 14, 2024 12:00am May 04, 2025 11:47am Start: 02-14-2024 take 1 mg by mouth o nce daily at bedtime Melatonin Active MG PO Daily at bedtime February 14, 2024 12:00am take 1 tablet by mouth at bedtim e melatonin 5 MG tablet Take 5 mg by mouth at bedtime Active nitrofurantoin, macrocrystals 25 mg / nitrofurantoin, monohydrate 75 mg oral capsule (20 sources) Nitrofuran Antibacterial Start: 06-15-2025 End: 07-06-2025 take 1 capsule by mouth every twelve hours at mealtime Nitrofurantoin Monohyd/M-Cryst 100 mg capsule Discontinued 100 MG PO Every 12 hours 08 26June 15, 2025 12:00am July 06, 2025 2:22pm must administer with a meal/food Start: 05-30-2024 End: 07-18-2024 take 1 capsule by mouth twice daily at mealtime Nitrofurantoin Monohyd/M-Cryst (Macrobid) 100 mg capsule Discontinued 100 MG PO Twice daily 08 26July 10, 2024 12:00am July 18, 2024 1:59pm must administer with a meal/food traMADol hydrochloride 50 mg oral tablet (9 sources) Opioid Agonist Start: 02-06-2025 End: 05-04-2025 take 1 tablet by mouth every eight hours as needed for pain Tramadol 50 mg tablet Discontinued 50 MG PO Every 8 hours as needed for pain 45 15 February 06, 2025 6:09pm May 04, 2025 11:48am Start: 02-02-2025 End: 02-06-2025 take 1 tablet by mouth every six hours as needed for pain Tramadol 50 mg tablet Discontinued 50 MG PO Every 6 hours as needed for pain 10 5 February 02, 2025 12:00am February 06, 2025 6:21pm triamcinolone acetonide 40 mg/ml injectable suspension (20 sources) Corticosteroid Start: 01-26-2023 Kenalog-40 Jan, 40 mg Tumersaid - (20 sources) Tumersaid - as d irected Orally Not-Taking Tumersaid - as d irected [...] Generalized anxiety disorder; Translations: [Generalized anxiety disorder] Onset: 01-29-2025 Chronic Cancer of breast (2 sources) Malignant [...] disease (4 sources) Atherosclerotic heart disease of [place] coronary artery with other forms of angina [...] hyperlipidemia; Translations: [Mixed hyperlipidemia] Onset: 09-04-2015 Chronic E Codes: Fall (11 sources) Fall; Translations: [Unspecified fall, initial encounter] Onset: 01-29-2025 01-29-2025 Episodic Esophageal disorders (20 sources) Gastro-esophageal reflux disease [...] sources) H/O: high risk medication; Translations: [Other salvage determiner (current) drug therapy] Episodic Other aftercare (4 sources) Other salvage determiner (current) drug therapy; Translations: [OTH RETIREMENT CURRENT DRUG THERAPY] Onset: 02-13-2023 Episodic Other aftercare (2 sources) Long-term current use of drug therapy; Translations: [Other salvage determiner (current) drug therapy] Episodic Other aftercare (2 sources) Long-term current use of insulin; Translations: [detention (current) use of insulin] Episodic Other aftercare (4 sources) Drug therapy finding; Translations: [Other jail (current) drug therapy] 02-14-2024 Episodic Other aftercare (6 sources) Long-term current use of anticoagulant; Translations: [salvage determiner (current) use of anticoagulants] 01-29-2025 Episodic Other bone disease and musculoskeletal deformities (20 sources) Other specified disorders of bone density and structure, left thigh; Translations: [Osteopenia of left hip] Episodic Other bone disease and musculoskeletal deformities (1 source) Other specified disorders of bone density and structure, right thigh Episodic Other bone disease and musculoskeletal deformities (7 sources) Osteopenia; Translations: [Other specified disorders of [...] [Pain in right foot] 05-16-2024 Episodic Other fractures (9 sources) Fracture of twelfth thoracic vertebra; Translations: [Stable burst fracture of T11-T12 vertebra, initial encounter for closed fracture] 01-29-2025 Episodic Other gastrointestinal disorders (20 sources) Dysphagia; [...] conditions (not mental disorders or infectious disease) (16 sources) Other specified abnormal findings of blood [...] (current) use of other medications] Onset: 12-07-2017 Unclassified (3 sources) A [facility] screening has identified you as FRAIL or AT RISK FOR FRAILTY. This puts you at a higher risk for infection, illness, falls, and other injuries. Here are four ways to help you reduce your risk of frailty: 1. IDENTIFY EARLY SIGNS OF FRAILTY Discuss contributing factors and concerns with your doctor 2. BE ACTIVE Walking and light strengthening exercises will help reduce weakness 3. EAT WELL Aim for three healthy meals a day that are high in protein 4. THINK POSITIVE Keep your mind active by being sociable and continuing to learn References: Stay Strong: Four Ways to Beat the Frailty Risk [email or web address]/ nyuy-dwlgcm-[email or web address] -ef-chwo-zen-fra ilty-risk 02-02-2025 Viral infection (11 sources) Disease caused by 2019-nCoV; Translations: [COVID-19] [...] [Surgery follow-up examination] Onset: 10-19-2012 Episodic Other aftercare (5 sources) detention (current) use of anticoagulants; Translations: [Long-term (current) use of anticoagulants] Onset: 01-29-2025 01-29-2025 Episodic Other bone disease and musculoskeletal deformities [...] specified as traumatic] Onset: 01-12-2017 Episodic Other fractures (6 sources) Stable burst fracture of T11-T12 vertebra, initial encounter for closed fracture; Translations: [Closed fracture of dorsal [thoracic] vertebra without mention of spinal cord injury] Onset: 01-29-2025 01-29-2025 Episodic Other gastrointestinal disorders (2 sources) Diarrhea; [...] (1 source) Suspected COVID-19 virus infection Z20.822 Urinary tract infections (12 sources) Urinary tract infectious disease; Translations: [Urinary tract infection, site not specified] Onset: 07-14-2013 Episodic Viral infection (1 source) COVID-19 Results Test Name Value Interpretation Reference Range Facility Laboratory - Chemistry and C hemistry - challengeOrdered By: Harsha Andrew on 06-15-2025 Bilirubin Ql (U) Negative [facility] Glucose (U) [Mass/Vol] Negative [facility] Ketones Ql (U) Negative [facility] pH (U) 6.0 [pH] [facility] Specific gravity (U) [Rel density] 1.005 [facility] Urobilinogen (U) [Mass/Vol] Negative [facility] Laboratory - Specimen inform ationOrdered By: Harsha Andrew on 06-15-2025 Appearance (U) cloudy [facility] Color (U) darkyellow [facility] Laboratory - UrinalysisOrder ed By: Harsha Andrew on 06-15-2025 Leukocyte esterase Test strip Ql (U) ++ [facility] Nitrite Ql (U) Negative [facility] Protein Ql (U) ++ [facility] No Panel InformationOrdered By: Harsha Andrew on 06-15-2025 Urine Occult Blood +++ [facility] Laboratory - Chemistry and C hemistry - challengeon 05-07-2025 Bilirubin Ql (U) Negative NEGATIVE [facility] Glucose (U) [Mass/Vol] Negative NEGATIVE [facility] Ketones Ql (U) TRACE mg/dL Abnormal NEGATIVE [facility] pH (U) 6.0 [pH] 5.0-9.0 [facility] Specific gravity (U) [Rel density] >=1.030 Abnormal 1.005-1.02 5 [facility] Urobilinogen Qn (U) 0.2 {Abhilash'U}/dL 0.2-1.0 [facility] Laboratory - Specimen inform ationon 05-07-2025 Appearance (U) CLOUDY Abnormal CLEAR [facility] Color (U) DK. YELLOW YELLOW [facility] Laboratory - Urinalysison Leukocyte esterase Test strip Ql (U) LARGE Abnormal NEGATIVE [facility] Nitrite Ql (U) Negative NEGATIVE [facility] Protein Ql (U) 100 mg/dL Abnormal NEG/TRACE [facility] No Panel Informationon 05-07 Urine Occult Blood MODERATE Abnormal NEGATIVE [facility] Urine Cultureon 05-07-2025 Bacteria identified Cx Nom (U) ORGANISM: Pamella albicans (O:CANALB) [place]we[place] Count >100,000 PERFORMED BY: [place] [address] PATHOLOGIST LYRIC WRITER TAMIR MACK M.D. Normal [facility] Comment on above: Performed By: #### C UU #### [address] Basic Metabolic Panelon 01-20 Anion gap [Moles/Vol] 10.9 mmol/L Normal 6.0-15.0 [facility] Comment on above: Performed By: #### P T, PTT #### [place] [address] [place] Calcium [Mass/Vol] 8.2 mg/dL Low 8.6-10.3 [facility] Comment on above: Performed By: #### P T, PTT #### [place] [address] [place] Chloride [Moles/Vol] 97 mmol/L Low 98-107 [facility] Comment on above: Performed By: #### P T, PTT #### [place] [address] [place] CO2 [Moles/Vol] 26.9 mmol/L Normal 21.0-31.0 [facility] Comment on above: Performed By: #### P T, PTT #### [address] Creatinine [Mass/Vol] 0.82 mg/dL Normal 0.60-1.20 [facility] Comment on above: Performed By: #### P T, PTT #### [address] Creatinine Clr Calc Pharmacy 47.25 Normal [facility] Comment on above: Result Comment: PERF ORMED BY: [place] [address] PATHOLOGIST LYRIC WRITER ROMAINE HENDERSON M.D. Performed By: #### P T, PTT #### [address] GFR/1.73 sq M.predicted MDRD (S/P/Bld) [Vol rate/Area] mL/min/{1.73_m2} Normal [facility] Comment on above: Performed By: #### P T, PTT #### [address] Glucose [Mass/Vol] 227 mg/dL High 70-100 [facility] Comment on above: Result Comment: [place] Glucose Reference Range is dependent on time and content of last meal. Glucose of more than 200 mg/dL in a nonstressed, ambulatory subject supports the diagnosis of Diabetes Mellitus. ADA recommended reference range Performed By: #### P T, PTT #### [address] Potassium [Moles/Vol] 3.8 mmol/L Normal 3.5-5.1 [facility] Comment on above: Performed By: #### P T, PTT #### [address] Sodium [Moles/Vol] 131 mmol/L Low 136-145 [facility] Comment on above: Performed By: #### P T, PTT #### [facility] [address] Urea nitrogen [Mass/Vol] 31 mg/dL High 7-25 [facility] Comment on above: Performed By: #### P T, PTT #### [facility] [address] Basophils Auto (Bld) [#/Vol] Ordered By: Alexandra Cheney on 02-02-2025 Basophils (Bld) [#/Vol] Automated basophil count 0.0-0.2 [facility] Basophils/100 WBC Auto (Bld) Ordered By: Alexandra Cheney on 02-02-2025 Basophils/100 WBC (Bld) Automated basophil % . [facility] Calcium [Mass/volume] in Ser um or PlasmaOrdered By: Alexandra Cheney on 02-02-2025 Calcium [Mass/Vol] Calcium [Mass/volume ] in Serum or Plasma Low 8.6-10.3 [facility] Carbon dioxide, total [Moles /volume] in Serum or PlasmaOrdered By: Alexandra Cheney on 02-02-2025 CO2 [Moles/Vol] Carbon dioxide, tota l [Moles/volume] in Serum or Plasma 21.0-31.0 [facility] Chloride [Moles/volume] in S patricia or PlasmaOrdered By: Alexandra Cheney on 02-02-2025 Chloride [Moles/Vol] Chloride [Moles/vol ume] in Serum or Plasma Low 98-107 [facility] Complete Blood Count Auto Di ffon 02-02-2025 Basophils (Bld) [#/Vol] 0.0 10*3/uL Normal 0.0-0.2 [facility] Comment on above: Result Comment: PERF ORMED BY: [address] [place] [address] PATHOLOGIST LYRIC WRITER ROMAINE HENDERSON M.D. Performed By: #### P T, PTT #### [facility] [address] [place] [address] Basophils/100 WBC (Bld) 0.2 % Normal . [facility] Comment on above: Performed By: #### P T, PTT #### [facility] [address] [place] [address] [place] Eosinophils (Bld) [#/Vol] 0.1 10*3/uL Normal 0.0-0.45 [facility] Comment on above: Performed By: #### P T, PTT #### [facility] [address] [place] [address] [place] Eosinophils/100 WBC (Bld) 1.0 % Normal . [facility] Comment on above: Performed By: #### P T, PTT #### [facility] [address] Erythrocyte distribution width (RBC) [Ratio] 13.5 % Normal 11.9-15.3 [facility] Comment on above: Performed By: #### P T, PTT #### [address] Hematocrit (Bld) [Volume fraction] 34.0 % Normal 34.0-46.4 [facility] Comment on above: Performed By: #### P T, PTT #### [address] Hemoglobin (Bld) [Mass/Vol] 11.7 g/dL Low 11.8-15.4 [facility] Comment on above: Performed By: #### P T, PTT #### [place] [address] [place] Lymphocytes (Bld) [#/Vol] 0.5 10*3/uL Low 1.00-4.8 [facility] Comment on above: Performed By: #### P T, PTT #### [place] [address] [place] Lymphocytes/100 WBC (Bld) 4.5 % Normal . [facility] Comment on above: Performed By: #### P T, PTT #### [address] MCH (RBC) [Entitic mass] 34.0 pg Normal 24.7-34.3 [facility] Comment on above: Performed By: #### P T, PTT #### [address] MCV (RBC) [Entitic vol] 98.7 fL Normal 80-100 [facility] Comment on above: Performed By: #### P T, PTT #### [address] Mean Corpuscular HGB Conc 34.4 g/dL Normal 32.0-35.0 [facility] Comment on above: Performed By: #### P T, PTT #### [address] Monocytes (Bld) [#/Vol] 0.8 10*3/uL Normal 0.0-0.8 [facility] Comment on above: Performed By: #### P T, PTT #### [address] Monocytes/100 WBC (Bld) 7.3 % Normal . [facility] Comment on above: Performed By: #### P T, PTT #### [place] [address] [place] Neutrophils (Bld) [#/Vol] 9.9 10*3/uL High 1.8-7.7 [facility] Comment on above: Performed By: #### P T, PTT #### [address] Neutrophils/100 WBC (Bld) 87.0 % Normal . [facility] Comment on above: Performed By: #### P T, PTT #### [address] NRBC% 0.2 /100{WBC} Normal 0-0.5 [facility] Comment on above: Performed By: #### P T, PTT #### [address] Platelet mean volume (Bld) [Entitic vol] 9.0 fL Normal 6.3-10.[address] [facility] Comment on above: Performed By: #### P T, PTT #### [facility] [address] [place] [address] [place] Platelets (Bld) [#/Vol] 179 10*3/uL Normal 150-450 [facility] Comment on above: Performed By: #### P T, PTT #### [facility] [address] RBC (Bld) [#/Vol] 3.44 10*6/uL Low 3.60-5.00 [facility] Comment on above: Performed By: #### P T, PTT #### [facility] [address] [place] [address] [place] WBC (Bld) [#/Vol] 11.3 10*3/uL Normal 3.8-11.6 [facility] Comment on above: Performed By: #### P T, PTT #### [facility] [address] Creatinine [Mass/volume] in Serum or PlasmaOrdered By: Alexandra Cheney on 02-02-2025 Creatinine [Mass/Vol] Creatinine [Mass/v olume] in Serum or Plasma 0.60-1.20 [facility] Eosinophils Auto (Bld) [#/Vo l]Ordered By: Alexandra Cheney on 02-02-2025 Eosinophils (Bld) [#/Vol] Automated eosinophil count 0.0-0.45 [facility] Eosinophils/100 WBC Auto (Bl d)Ordered By: Alexandra Cheney on 02-02-2025 Eosinophils/100 WBC (Bld) Automated eosinophil % . [facility] Erythrocyte distribution wid th Auto (RBC) [Ratio]Ordered By: Alexandra Rodas on 02-02-2025 Erythrocyte distribution width (RBC) [Ratio] Erythrocyte distribution width [Ratio] by Automated count 11.9-15.3 [facility] Glucose Glucometer (BldC) [M ass/Vol]Ordered By: Alec Alvarez on 02-02-2025 Glucose [Mass/Vol] Capillary blood gluc ose measurement by glucometer (mass/volume) [facility] Comment on above: Random Glucose Refer ence Range is dependent on time and content of last meal. Glucose of more than 200 mg/dL in a nonstressed, ambulatory subject supports the diagnosis of Diabetes Mellitus. Glucose Poct Glucometerson 0 02-02-2025 Glucose [Mass/Vol] 343 mg/dL Normal [facility] Comment on above: Result Comment: [place] om Glucose Reference Range is dependent on time and content of last meal. Glucose of more than 200 mg/dL in a nonstressed, ambulatory subject supports the diagnosis of Diabetes Mellitus. PERFORMED BY: [place] [address] PATHOLOGIST LYRIC WRITER ROMAINE HENDERSON M.D. Performed By: #### P T, PTT #### [address] Glucose [Mass/Vol] 246 mg/dL Normal [facility] Comment on above: Result Comment: [place] om Glucose Reference Range is dependent on time and content of last meal. Glucose of more than 200 mg/dL in a nonstressed, ambulatory subject supports the diagnosis of Diabetes Mellitus. PERFORMED BY: [place] [address] PATHOLOGIST LYRIC WRITER ROMAINE HENDERSON M.D. Performed By: #### G LULS #### Point of Care testing , Glucose [Mass/volume] in Ser um or PlasmaOrdered By: Alexandra Cheney on 02-02-2025 Glucose [Mass/Vol] Glucose [Mass/volume ] in Serum or Plasma High 70-100 [facility] Comment on above: ADA recommended refe rence rangeRandom Glucose Reference Range is dependent on time and content of last meal. Glucose of more than 200 mg/dL in a nonstressed, ambulatory subject supports the diagnosis of Diabetes Mellitus. Hematocrit Auto (Bld) [Volum e fraction]Ordered By: Alexandra Cheney on 02-02-2025 Hematocrit (Bld) [Volume fraction] Hematocrit [Volume Fraction] of Blood by Automated count 34.0-46.4 [facility] Hemoglobin [Mass/volume] in BloodOrdered By: Alexandra Cheney on 02-02-2025 Hemoglobin (Bld) [Mass/Vol] Hemoglobin [Mass/volume] in Blood Low 11.8-15.4 [facility] Leukocytes [#/volume] correc [place] for nucleated erythrocytes in Blood by Automated counOrdered By: Alexandra Cheney on 02-02-2025 WBC corrected for nucl RBC Auto (Bld) [#/Vol] Leukocytes [#/volume] corrected for nucleated erythrocytes in Blood by Automated coun 3.8-11.6 [facility] Lymphocytes Auto (Bld) [#/Vo l]Ordered By: Alexandra Cheney on 02-02-2025 Lymphocytes (Bld) [#/Vol] Lymphocytes [#/volume] in Blood by Automated count Low 1.00-4.8 [facility] Lymphocytes/100 WBC Auto (Bl d)Ordered By: Alexandra Cheney on 02-02-2025 Lymphocytes/100 WBC (Bld) Lymphocytes/100 leukocytes in Blood by Automated count . [facility] MCH Auto (RBC) [Entitic mass ]Ordered By: Alexandra Cheney on 02-02-2025 MCH (RBC) [Entitic mass] MCH [Entitic mass] by Automated count 24.7-34.3 [facility] MCHC Auto (RBC) [Mass/Vol]Or dered By: Alexandra Cheney on 02-02-2025 MCHC (RBC) [Mass/Vol] MCHC [Mass/volume] by Automated count 32.0-35.0 [facility] MCV Auto (RBC) [Entitic vol] Ordered By: Alexandra Cheney on 02-02-2025 MCV (RBC) [Entitic vol] MCV [Entitic volume] by Automated count 80-100 [facility] Monocytes Auto (Bld) [#/Vol] Ordered By: Alexandra Cheney on 02-02-2025 Monocytes (Bld) [#/Vol] Automated blood monocyte count 0.0-0.8 [facility] Monocytes/100 WBC Auto (Bld) Ordered By: Alexandra Cheney on 02-02-2025 Monocytes/100 WBC (Bld) Automated monocyte % . [facility] Neutrophils Auto (Bld) [#/Vo l]Ordered By: Alexandra Cheney on 02-02-2025 Neutrophils (Bld) [#/Vol] Neutrophils [#/volume] in Blood by Automated count High 1.8-7.7 [facility] Neutrophils/100 WBC Auto (Bl d)Ordered By: Alexandra Cheney on 02-02-2025 Neutrophils/100 WBC (Bld) Automated neutrophil % . [facility] No Panel InformationOrdered By: Alexandra Cheney on 02-02-2025 Estimated GFR (CKD-EPI) > 60.0 mL/Min [facility] Creatinine Clearance (Chem 47.25 [facility] Nucleated erythrocytes [Pres ence] in Blood by Automated countOrdered By: Alexandra Cheney on 02-02-2025 Nucleated RBC Auto Ql (Bld) Nucleated erythrocytes [Presence] in Blood by Automated count 0-0.5 [facility] Platelet mean volume Auto (B ld) [Entitic vol]Ordered By: Alexandra Cheney on 02-02-2025 Platelet mean volume (Bld) [Entitic vol] Platelet mean volume [Entitic volume] in Blood by Automated count 6.3-10.7 [facility] Platelets Auto (Bld) [#/Vol] Ordered By: Alexandra Cheney on 02-02-2025 Platelets (Bld) [#/Vol] Platelets [#/volume] in Blood by Automated count 150-450 [facility] Potassium [Moles/volume] in Serum or PlasmaOrdered By: Alexandra Cheney on 02-02-2025 Potassium [Moles/Vol] Potassium [Moles/v olume] in Serum or Plasma 3.5-5.1 [facility] RBC Auto (Bld) [#/Vol]Ordere d By: Alexandra Cheney on 02-02-2025 RBC (Bld) [#/Vol] Erythrocytes [#/volu me] in Blood by Automated count Low 3.60-5.00 [facility] Serum or plasma anion gap de terminationOrdered By: Alexandra Cheney on 02-02-2025 Anion gap [Moles/Vol] Serum or plasma an ion gap determination 6.0-15.0 [facility] Sodium [Moles/volume] in Ser um or PlasmaOrdered By: Alexandra Cheney on 02-02-2025 Sodium [Moles/Vol] Sodium [Moles/volume ] in Serum or Plasma Low 136-145 [facility] Urea nitrogen [Mass/volume] in Serum or PlasmaOrdered By: Alexandra Cheney on 02-02-2025 Urea nitrogen [Mass/Vol] Urea nitrogen [Mass/volume] in Serum or Plasma High 7-25 [facility] WBC Auto (Bld) [#/Vol]Ordere d By: Alexandra Cheney on 02-02-2025 WBC (Bld) [#/Vol] Leukocytes [#/volume ] in Blood by Automated count 3.8-11.6 [facility] Appearance of UrineOrdered B y: Alexandra Cheney on 02-01-2025 Appearance (U) Urine appearance Abnormal Clear [facility] Bacteria [Presence] in Urine by AutomatedOrdered By: Alexandra Cheney on 02-01-2025 Bacteria Auto Ql (U) Bacteria [Presence] in Urine by Automated High None Seen [facility] Basic Metabolic Panelon 01-20 Anion gap [Moles/Vol] 11.5 mmol/L Normal 6.0-15.0 Th e [facility] Comment on above: Performed By: #### P T, PTT #### [facility] [address] [place] [address] [place] Calcium [Mass/Vol] 9.1 mg/dL Normal 8.6-10.3 [facility] Comment on above: Performed By: #### P T, PTT #### [facility] [address] [place] [address] [place] Chloride [Moles/Vol] 96 mmol/L Low 98-107 [facility] Comment on above: Performed By: #### P T, PTT #### [facility] [address] [place] [address] [place] CO2 [Moles/Vol] 26.5 mmol/L Normal 21.0-31.0 The [facility] Comment on above: Performed By: #### P T, PTT #### [facility] [address] Creatinine [Mass/Vol] 1.12 mg/dL Normal 0.60-1.20 The [facility] Comment on above: Performed By: #### P T, PTT #### [address] Creatinine Clr Calc Pharmacy 34.59 Normal The [facility] Comment on above: Result Comment: PERF ORMED BY: [place] [address] PATHOLOGIST LYRIC WRITER ROMAINE HENDERSON M.D. Performed By: #### P T, PTT #### [address] Estimated GFR 49.710 mL/Min Normal The [facility] Comment on above: Performed By: #### P T, PTT #### [address] Glucose [Mass/Vol] 268 mg/dL High 70-100 [facility] Comment on above: Result Comment: Brooks Glucose Reference Range is dependent on time and content of last meal. Glucose of more than 200 mg/dL in a nonstressed, ambulatory subject supports the diagnosis of Diabetes Mellitus. ADA recommended reference range Performed By: #### P T, PTT #### [address] Potassium [Moles/Vol] 4.0 mmol/L Normal 3.5-5.1 [facility] Comment on above: Performed By: #### P T, PTT #### [place] [address] [place] Sodium [Moles/Vol] 130 mmol/L Low 136-145 [facility] Comment on above: Performed By: #### P T, PTT #### [address] Urea nitrogen [Mass/Vol] 47 mg/dL High 7-25 [facility] Comment on above: Performed By: #### P T, PTT #### [address] Bilirubin Test strip Ql (U)O rdered By: Alexandra Cheney on 02-01-2025 Bilirubin Ql (U) Bilirubin.total [Presence] in Urine by Test strip Negative [facility] Color Auto (U)Ordered By: Neeru CanalesAnumy on 02-01-2025 Color (U) Color of Urine by Auto [facility] Blood Count Auto Di ffon 02-01-2025 Basophils (Bld) [#/Vol] 0.1 10*3/uL Normal 0.0-0.2 [facility] Comment on above: Result Comment: PERF ORMED BY: [place] [address] PATHOLOGIST LYRIC WRITER ROMAINE HENDERSON M.D. Performed By: #### P T, PTT #### [address] Basophils/100 WBC (Bld) 1.0 % Normal . [facility] Comment on above: Performed By: #### P T, PTT #### [address] Eosinophils (Bld) [#/Vol] 0.1 10*3/uL Normal 0.0-0.45 [facility] Comment on above: Performed By: #### P T, PTT #### [address] Eosinophils/100 WBC (Bld) 0.7 % Normal . [facility] Comment on above: Performed By: #### P T, PTT #### [address] Erythrocyte distribution width (RBC) [Ratio] 13.4 % Normal 11.9-15.3 [facility] Comment on above: Performed By: #### P T, PTT #### [address] Hematocrit (Bld) [Volume fraction] 39.1 % Normal 34.0-46.4 [facility] Comment on above: Performed By: #### P T, PTT #### [address] Hemoglobin (Bld) [Mass/Vol] 13.4 g/dL Normal 11.8-15.4 [facility] Comment on above: Performed By: #### P T, PTT #### [address] Lymphocytes (Bld) [#/Vol] 0.6 10*3/uL Low 1.00-4.8 [facility] Comment on above: Performed By: #### P T, PTT #### [place] [address] [place] Lymphocytes/100 WBC (Bld) 4.2 % Normal . [facility] Comment on above: Performed By: #### P T, PTT #### [address] MCH (RBC) [Entitic mass] 34.4 pg High 24.7-34.3 [facility] Comment on above: Performed By: #### P T, PTT #### [place] [address] [place] MCV (RBC) [Entitic vol] 100.5 fL High 80-100 [facility] Comment on above: Performed By: #### P T, PTT #### [address] Mean Corpuscular HGB Conc 34.2 g/dL Normal 32.0-35.0 [facility] Comment on above: Performed By: #### P T, PTT #### [place] [address] [place] Monocytes (Bld) [#/Vol] 0.9 10*3/uL High 0.0-0.8 [facility] Comment on above: Performed By: #### P T, PTT #### [address] Monocytes/100 WBC (Bld) 6.3 % Normal . [facility] Comment on above: Performed By: #### P T, PTT #### [facility] [address] [place] [address] [place] Neutrophils (Bld) [#/Vol] 12.0 10*3/uL High 1.8-7.7 [facility] Comment on above: Performed By: #### P T, PTT #### [facility] [address] [place] [id number] [place] Neutrophils/100 WBC (Bld) 87.8 % Normal . [facility] Comment on above: Performed By: #### P T, PTT #### [facility] [address] NRBC% 0.0 /100{WBC} Normal 0-0.5 The [facility] Comment on above: Performed By: #### P T, PTT #### [facility] [address] Platelet mean volume (Bld) [Entitic vol] 8.9 fL Normal 6.3-10.[address] [facility] Comment on above: Performed By: #### P T, PTT #### [facility] [address] [place] [address] [place] Platelets (Bld) [#/Vol] 191 10*3/uL Normal 150-450 [facility] Comment on above: Performed By: #### P T, PTT #### [place] [address] [place] RBC (Bld) [#/Vol] 3.89 10*6/uL Normal 3.60-5.00 The [facility] Comment on above: Performed By: #### P T, PTT #### [facility] [address] [place] [address] [place] WBC (Bld) [#/Vol] 13.6 10*3/uL High 3.8-11.6 [facility] Comment on above: Performed By: #### P T, PTT #### [place] [address] [place] Dipstick and Microscopicon 0 02-01-2025 Appearance (U) Cloudy Critically abnormal Clear [facility] Comment on above: Order Comment: Name Collection Type:: Baldwin Catheter Performed By: #### A DDONUAPLUS #### [facility] [address] [place] [address] [place] Bacteria,Urine 3+ High None Seen The [facility] Comment on above: Order Comment: Name Collection Type:: Baldwin Catheter Performed By: #### A DDONUAPLUS #### [facility] [address] [place] [address] [place] Bilirubin,Urine Negative Normal Negative The [facility] Comment on above: Order Comment: Name Collection Type:: Baldwin Catheter Performed By: #### A DDONUAPLUS #### [facility] [address] [place] [address] [place] Color (U) Yellow Normal Yellow [facility] Comment on above: Order Comment: Name Collection Type:: Baldwin Catheter Performed By: #### A DDONUAPLUS #### [place] [address] [place] Glucose Ql (U) 1000 mg/dL High Normal The [facility] Comment on above: Order Comment: Name Collection Type:: Baldwin Catheter Performed By: #### A DDONUAPLUS #### [place] [address] [place] Hyaline Casts,Urine 9-19 High 0-8 [facility] Comment on above: Order Comment: Name Collection Type:: Baldwin Catheter Performed By: #### A DDONUAPLUS #### [place] [address] [place] Ketones Ql (U) 1+ High Negative The [facility] Comment on above: Order Comment: Name Collection Type:: Baldwin Catheter Performed By: #### A DDONUAPLUS #### [facility] [address] [place] [address] [place] Leukocyte esterase Test strip Ql (U) 1+ High Negative The [facility] Comment on above: Order Comment: Name Collection Type:: Baldwin Catheter Performed By: #### A DDONUAPLUS #### [facility] [address] [place] [address] [place] Mucus,Urine 4+ Critically abnormal The [facility] Comment on above: Order Comment: Name Collection Type:: Baldwin Catheter Result Comment: PERF ORMED BY: [place] [address] PATHOLOGIST LYRIC WRITER ROMAINE HENDERSON M.D. Performed By: #### A DDONUAPLUS #### [place] [address] [place] Nitrite,Urine Negative Normal Negative The [facility] Comment on above: Order Comment: Name Collection Type:: Baldwin Catheter Performed By: #### A DDONUAPLUS #### [place] [address] [place] Occult Blood,Urine Negative Normal Negative The [facility] Comment on above: Order Comment: Name Collection Type:: Baldwin Catheter Result Comment: PERF ORMED BY: [place] [address] PATHOLOGIST LYRIC WRITER ROMAINE HENDERSON M.D. Performed By: #### A DDONUAPLUS #### [place] [address] [place] pH (U) 5.0 [pH] Normal 5.0-9.0 [facility] Comment on above: Order Comment: Name Collection Type:: Baldwin Catheter Performed By: #### A DDONUAPLUS #### [place] [address] [place] Protein (U) [Mass/Vol] 20 mg/dL High Negative Th [facility] Comment on above: Order Comment: Name Collection Type:: Baldwin Catheter Performed By: #### A DDONUAPLUS #### [place] [address] [place] RBC,Urine 1-2 Normal 0-4 [facility] Comment on above: Order Comment: Name Collection Type:: Baldwin Catheter Performed By: #### A DDONUAPLUS #### [place] [address] [place] Specificy Belding,Urine 1.018 Normal 1.001-1.03 0 [facility] Comment on above: Order Comment: Name Collection Type:: Baldwin Catheter Performed By: #### A DDONUAPLUS #### [facility] [address] Squamous Epithelial Cell,Urine 1-2 Normal 0-2 [facility] Comment on above: Order Comment: Name Collection Type:: Baldwin Catheter Performed By: #### A DDONUAPLUS #### [address] Urobilinogen,Urine Normal Normal Normal [facility] Comment on above: Order Comment: Name Collection Type:: Baldwin Catheter Performed By: #### A DDONUAPLUS #### [address] WBC CLUMP, Urine Few High None Seen The [facility] Comment on above: Order Comment: Name Collection Type:: Baldwin Catheter Performed By: #### A DDONUAPLUS #### [place] [address] [place] WBC,Urine 3-4 Normal 0-4 [facility] Comment on above: Order Comment: Name Collection Type:: Baldwin Catheter Performed By: #### A DDONUAPLUS #### [address] Epithelial cells.squamous [# /area] in Urine sediment by Automated countOrdered By: Alexandra Cheney on 02-01-2025 Epithelial cells.squamous Auto (Urine sed) [#/Area] Epithelial cells.squamous [#/area] in Urine sediment by Automated count 0-2 [facility] Erythrocytes [#/area] in Uri ne sediment by Automated countOrdered By: Alexandra Cheney on 02-01-2025 RBC Auto (Urine sed) [#/Area] Erythrocytes [#/area] in Urine sediment by Automated count 0-4 [facility] [place] guided kyphoplastyon 01-20 [place] guided kyphoplasty [facility] [place] [address] [place] [address] Fluoroscopy Report Signed Patient: Fatuma Fair MR#: [id number] : 1945 Acct:[id number] Age/Sex: 80 / F ADM Date: 01/29/25 Loc: 4N Room: [address] [place] [address] Type: ADM IN Attending Dr: Alec Alvarez MD Copies to: DO Alec Luna MD Ordering Provider: Donell Rosenbaum DO Date of Service: 02/01/25 FL/FL guided kyphoplasty: . Intraoperative study. Reason for exam: T12 kyphoplasty Findings: 6 images were obtained intraoperatively. Kyphoplasty changes are seen. Cumulative Air Kerma in mGy: 33 mGy FL/FL guided kyphoplasty Impression: Intraoperative study. Impression dictated by: Rick Smith Jr., D.O.02/01/2025 1:35 PM Dictation Location: [place] [address] Transcribed By: JORGE 02/01/25 1335 Dictated By: Rick Smith Jr, DO 02/01/25 1334 Signed By: 02/01/25 1335 Normal [facility] Fluoroscopy reportOrdered By : Rick Smith on 02-01-2025 RF Unspecified body region Views [facility] [place] [address] Fluoroscopy Report Signed Patient: Fatuma Fair MR#: [id number] : 1945 Acct:[id number] Age/Sex: 80 / F ADM Date: 5 Loc: 4N Room: [address] [place] [address] Type: ADM IN Attending Dr: Alec Alvarez MD Copies to: DO Alec Luna MD~ Ordering Provider: Donell Rosenbaum DO Date of Service: 02/01/25 FL/FL guided kyphoplasty: . Intraoperative study. Reason for exam: T12 kyphoplasty Findings: 6 images were obtained intraoperatively. Kyphoplasty changes are seen. Cumulative Air Kerma in mGy: 33 mGy FL/FL guided kyphoplasty Impression: Intraoperative study. Impression dictated by: Rick Smith Jr., D.O.02/01/2025 1:35 PM Dictation Location: [facility]- Transcribed By: [facility] 02/01/25 1335 Dictated By: Rick Smith Jr, DO 02/01/25 1334 Signed By: 02/01/25 1335 [facility] Glucose Poct Glucometerson 0 02-01-2025 Glucose [Mass/Vol] 395 mg/dL Normal [facility] Comment on above: Result Comment: Brooks om Glucose Reference Range is dependent on time and content of last meal. Glucose of more than 200 mg/dL in a nonstressed, ambulatory subject supports the diagnosis of Diabetes Mellitus. PERFORMED BY: [place] [address] PATHOLOGIST LYRIC WRITER ROMAINE HENDERSON M.D. Performed By: #### C UU #### [address] Glucose [Mass/Vol] 276 mg/dL Normal The [facility] Comment on above: Result Comment: [place] Glucose Reference Range is dependent on time and content of last meal. Glucose of more than 200 mg/dL in a nonstressed, ambulatory subject supports the diagnosis of Diabetes Mellitus. PERFORMED BY: [place] [address] PATHOLOGIST LYRIC WRITER ROMAINE HENDERSON M.D. Performed By: #### G LULS #### Point of Care testing , Glucose [Mass/Vol] 224 mg/dL Normal The [facility] Comment on above: Result Comment: [place] Glucose Reference Range is dependent on time and content of last meal. Glucose of more than 200 mg/dL in a nonstressed, ambulatory subject supports the diagnosis of Diabetes Mellitus. PERFORMED BY: [place] [address] PATHOLOGIST LYRIC WRITER ROMAINE HENDERSON M.D. Performed By: #### G LULS #### Point of Care testing , Glucose [Mass/Vol] 225 mg/dL Normal The [facility] Comment on above: Result Comment: [place] Glucose Reference Range is dependent on time and content of last meal. Glucose of more than 200 mg/dL in a nonstressed, ambulatory subject supports the diagnosis of Diabetes Mellitus. PERFORMED BY: [place] [address] PATHOLOGIST LYRIC WRITER ROMAINE HENDERSON M.D. Performed By: #### P T, PTT #### [facility] [address] [place] [address] Commemt1 Glu2: Cleaned Meter Normal [facility] Comment on above: Result Comment: PERF ORMED BY: [place] [address] PATHOLOGIST LYRIC WRITER ROMAINE HENDERSON M.D. Performed By: #### G LULS #### Point of Care testing , Glucose [Mass/Vol] 239 mg/dL Normal [facility] Comment on above: Result Comment: [place] om Glucose Reference Range is dependent on time and content of last meal. Glucose of more than 200 mg/dL in a nonstressed, ambulatory subject supports the diagnosis of Diabetes Mellitus. Performed By: #### G LULS #### Point of Care testing , Glucose [Mass/Vol] 319 mg/dL Normal [facility] Comment on above: Result Comment: [place] om Glucose Reference Range is dependent on time and content of last meal. Glucose of more than 200 mg/dL in a nonstressed, ambulatory subject supports the diagnosis of Diabetes Mellitus. PERFORMED BY: [place] [address] PATHOLOGIST LYRIC WRITER ROMAINE HENDERSON M.D. Performed By: #### P T, PTT #### [facility] [address] [place] [address] [place] Glucose [Mass/volume] in Uri ne by Test stripOrdered By: Alexandra Cheney on 02-01-2025 Glucose Test strip (U) [Mass/Vol] Glucose [Mass/volume] in Urine by Test strip High Normal [facility] Hemoglobin Test strip Ql (U) Ordered By: Alexandra Cheney on 02-01-2025 Hemoglobin Ql (U) Hemoglobin [Presence ] in Urine by Test strip Negative [facility] Hyaline casts [#/area] in Ur ine sediment by Automated countOrdered By: Alexandra Cheney on 02-01-2025 Hyaline casts Auto (Urine sed) [#/Area] Hyaline casts [#/area] in Urine sediment by Automated count High 0-8 [facility] INR in Platelet poor plasma by Coagulation assayOrdered By: Donell Rosenbaum on 02-01-2025 INR Coag (PPP) [Relative time] INR in Platelet poor plasma by Coagulation assay [facility] Comment on above: INR Therapeutic Rang e A) Pre- and Peroperative OAT started two weeks before surgery. NOT HIP SURGERY: 1.5 - 2.5 HIP SURGERY: 2 - 3B) Primary and secondary prevention of venous THROMBOSIS: 2 - 3C) Active venous thrombosis, pulmonary embolismand prevention of recurrent venous thrombosis: 2 - 3D) Prevention of arterial thromboembolismincluding patients with mechanical heart valves: 3 - 4.5 Ketones Test strip Ql (U)Ord ered By: Alexandra Cheney on 02-01-2025 Ketones Ql (U) Ketones [Presence] i n Urine by Test strip High Negative [facility] Leukocyte clumps [Presence] in Urine by AutomatedOrdered By: Alexandra Rodas on 02-01-2025 Leukocyte clumps Auto Ql (U) Leukocyte clumps [Presence] in Urine by Automated High None Seen [facility] Leukocyte esterase [Presence ] in Urine by Test stripOrdered By: Alexandra Rodas on 02-01-2025 Leukocyte esterase Test strip Ql (U) Leukocyte esterase [Presence] in Urine by Test strip High Negative [facility] Leukocytes [#/area] in Urine sediment by Automated countOrdered By: Alexandra Cheney on 02-01-2025 WBC Auto (Urine sed) [#/Area] Leukocytes [#/area] in Urine sediment by Automated count 0-4 [facility] Mucus [Presence] in Urine by AutomatedOrdered By: Alexandra Cheney on 02-01-2025 Mucus Auto Ql (U) Mucus [Presence] in Urine by Automated Abnormal [facility] Nitrite Test strip Ql (U)Ord ered By: Alexandra Cheney on 02-01-2025 Nitrite Ql (U) Nitrite [Presence] i n Urine by Test strip Negative [facility] No Panel InformationOrdered By: Alec Alvarez on 02-01-2025 Bedside Glucose Comment Glu2: cleaned meter [facility] Partial Thromboplastin Timeo n 02-01-2025 aPTT Coag (Bld) [Time] 23.5 s Low 25.1-36.5 Th e [facility] Comment on above: Order Comment: REDRA W, PREVIOUS SAMPLE OVERFILLED Result Comment: A he matocrit value greater than 55% may lead to inaccurate results in coagulation testing. Patients having hematocrit values >55% require a special collection tube for coagulation studies. Please contact the laboratory at [phone] for redraw instructions. PERFORMED BY: [place] [address] PATHOLOGIST LYRIC WRITER ROMAINE HENDERSON M.D. Performed By: #### P T, PTT #### [facility] [address] [place] [address] Protein Test strip (U) [Mass /Vol]Ordered By: Alexandra Chneey on 02-01-2025 Protein (U) [Mass/Vol] Protein [Mass/vol ume] in Urine by Test strip High Negative [facility] Prothrombin Time INRon 02-01 INR Coag (PPP) [Relative time] 1.2 {INR} Normal [facility] Comment on above: Order Comment: REDRA W, PREVIOUS SAMPLE OVERFILLED Result Comment: INR Therapeutic Range A) Pre- and Peroperative OAT started two weeks before surgery. NOT HIP SURGERY: 1.5 - 2.5 HIP SURGERY: 2 - 3 B) Primary and secondary prevention of venous THROMBOSIS: 2 - 3 C) Active venous thrombosis, pulmonary embolism and prevention of recurrent venous thrombosis: 2 - 3 D) Prevention of arterial thromboembolism including patients with mechanical heart valves: 3 - 4.5 Performed By: #### P T, PTT #### [facility] [address] [place] [address] PT Coag (PPP) [Time] 13.4 s High 9.0-12.9 [facility] Comment on above: Order Comment: REDRA W, PREVIOUS SAMPLE OVERFILLED Result Comment: A he matocrit value greater than 55% may lead to inaccurate results in coagulation testing. Patients having hematocrit values >55% require a special collection tube for coagulation studies. Please contact the laboratory at [phone] for redraw instructions. Performed By: #### P T, PTT #### [facility] [address] Prothrombin time (PT)Ordered By: Donell Rosenbaum on 02-01-2025 PT Coag (PPP) [Time] Prothrombin time (PT) High 9.0- 12.9 [facility] Comment on above: A hematocrit value g reater than 55% may lead to inaccurate results in coagulation testing. Patients having hematocrit values >55% require a special collection tube for coagulation studies. Please contact the laboratory at [phone] for redraw instructions. Specific gravity Test strip (U) [Rel density]Ordered By: Alexandra Cheney on 02-01-2025 Specific gravity (U) [Rel density] Specific gravity of Urine by Test strip 1.001-1.03 0 [facility] Urobilinogen Test strip (U) [Mass/Vol]Ordered By: Alexandra Cheney on 02-01-2025 Urobilinogen (U) [Mass/Vol] Urobilinogen [Mass/volume] in Urine by Test strip Normal [facility] aPTT in Platelet poor plasma by Coagulation assayOrdered By: Donell Rosenbaum on 02-01-2025 aPTT Coag (PPP) [Time] Activated partial thromboplastin time (aPTT) in platelet poor plasma by coagulation a Low 25.1-36.5 [facility] Comment on above: A hematocrit value g reater than 55% may lead to inaccurate results in coagulation testing. Patients having hematocrit values >55% require a special collection tube for coagulation studies. Please contact the laboratory at [phone] for redraw instructions. pH Test strip (U)Ordered By: Alexandra Cheney on 02-01-2025 pH (U) pH of Urine by Test strip 5.0-9.0 [facility] ECG 12 lead ECGon 01-31-2025 ECG 12 lead ECG [facility] Main [place] [id number] Electrocardiograph Report Signed Patient: Fatuma Fair MR#: [id number] : 1945 Acct:[id number] Age/Sex: 80 / F ADM Date: 01/29/25 Loc: 4N Room: [address] [place] [address] Type: ADM IN Attending Dr: Alec Alvarez MD Ordering Provider: Alexandra Cheney APRN Date of Service: 01/31/2511/15/1311 ECG/ECG 12 lead ECG: PAF, preop Copies to: Test Reason : Blood Pressure : */* mmHG Vent. Rate : 70 BPM Atrial Rate : 70 BPM P-R Int : 190 ms QRS Dur : 86 ms QT Int : 426 ms P-R-T Axes : 29 -13 27 degrees QTcB Int : 460 ms Normal sinus rhythm Minimal voltage criteria for LVH, may be normal variant ( R in aVL ) Abnormal ECG Confirmed by Saida Ziegler ([id number]) on 01/31/2025 2:36:50 PM Referred By: Electronically Signed By: Saida Ziegler Transcribed By: MUS Signed By Saida Ziegler MD 5 1436 Normal [facility] [facility] ECH echo transthoracicon ECH echo transthoracic [place] [id number] Echocardiogram Signed Patient: Fatuma Fair MR#: [id number] : 1945 Acct:[id number] Age/Sex: 80 / F ADM Date: 01/29/25 Loc: 4N Room: [address] [place] [address] Type: ADM IN Attending Dr: Alec Alvarez MD Ordering Provider: Alexandra Cheney APRN Date of Service: 01/31/2511/15/1311 ECH/ECH echo transthoracic: preop, afib Copies to: MD Alexandra Do APRN Fatuma Colbert PM Patient Location: : 1945 Gender: Female (MM/DD/YYYY) Age: 80 Years Ordering Physician: Alexandra Fonseca Height: 64 in Weight: 138.23 lb Performed By: JASVIR Norton BSA: 1.67 m2 BP: 122 / 73 mmHg HR: 64 bpm Reason For Study: preop, afib History: DM, CKD, A-Fib., HTN, COVID + -+ Interpretation Summary Ejection Fraction = 65-70%. The left ventricular wall motion is normal. There is septal asymmetric left ventricular hypertrophy. A variety of Doppler measurements indicate normal left ventricular diastolic function. Mild aortic regurgitation. There is no comparison study available. Procedure/Quality: A two-dimensional transthoracic echocardiogram with color flow, Doppler and injection of contrast agent Definity was performed. The study was technically good in quality. Left Ventricle: The left ventricular size is normal. There is septal asymmetric left ventricular hypertrophy. No left ventricular outflow tract obstruction seen. Ejection Fraction = 65-70%. A variety of Doppler measurements indicate normal left ventricular diastolic function. The left ventricular wall motion is normal. Left Atrium: The left atrium appears normal in size. Right Atrium: The right atrium appears normal in size. Right Ventricle: The right ventricle is normal in size and function. Aortic Valve: The aortic valve is normal in structure. No hemodynamically significant valvular aortic stenosis. Mild aortic regurgitation. Mitral Valve: The mitral valve is moderately sclerotic. No significant mitral valve stenosis. Both leaflets are pliable and mobile. There is no mitral regurgitation noted. Tricuspid Valve: The tricuspid valve is normal in structure. No tricuspid regurgitation. Pulmonic Valve: The pulmonic valve is not well visualized. Trace pulmonic valvular regurgitation. Arteries: The aortic root is normal size. Pericardium/Pleura: No pericardial effusion seen. IVC/Hepatic Veins: The inferior vena cava is normal in size, with a normal collapsibility index. MMode/2D Measurements Calculations IVSd (0.7-1.1 cm): 1.29 cm LVIDd (3.7-5.4 cm): 3.5 cm LVPWd (0.7-1.1 cm): 0.90 cm LVIDs (2.3-3.6 cm): 1.59 cm LA dimension (2.3-4.0 cm): 3.9 Ao root diam (2.0-3.2 cm): 2.9 cm cm FS: 54.8 % Ao root area: 6.7 cm2 EDV(Teich): 51.8 ml LVOT diam: 2.6 cm ESV(Teich): 7.1 ml LVOT area: 5.1 cm2 EF(Teich): 86.3 % LAV(MOD-sp2): 36.7 ml LAV(MOD-sp4): 40.6 ml LA A2 area: 15.2 cm2 LA A4 area: 14.9 cm2 LA length (vol): 4.4 cm LA vol: 44.2 ml LA vol index: 26.4 ml/m2 Doppler Measurements Calculations MV E max agueda: 67.8 cm/sec Ao V2 max: 187.0 cm/sec MV A max agueda: 120.3 cm/sec Ao max P.0 mmHg MR max agueda: 465.2 cm/sec Ao mean P.2 mmHg MV V2 VTI: 46.8 cm Ao V2 mean: 136.2 cm/sec MV P1/2t: 118.2 msec Ao V2 VTI: 39.9 cm MV dec time: 0.35 sec GAVIN(I,D): 4.8 cm2 MV dec slope: 247.5 cm/sec?? GAVIN(V,D): 4.7 cm2 E/E' lat: 4.9 AI P1/2t: 905.6 msec E/E' med: 10.1 TV max P.0 mmHg LV V1 max: 172.0 cm/sec TR max agueda: 284.7 cm/sec LV V1 max P.8 mmHg TR max P.4 mmHg LV V1 mean: 127.5 cm/sec RAP systole: 5.0 mmHg LV V1 mean P.1 mmHg LV V1 VTI: 37.7 cm + + + + + --+ + : Electronically : : signed by: Elkin : : : : Lilliana : : : : on: 01/31/2025, : : : : 5:00 PM : + --+ + Transcribed By: ROSARIO Performed At: 01/31/25 1359 Signed By: Elkin Tijerina MD 01/31/25 1700 Normal [facility] Glucose Poct Glucometerson 0 01-31-2025 Glucose [Mass/Vol] 352 mg/dL Normal [facility] Comment on above: Result Comment: [place] Glucose Reference Range is dependent on time and content of last meal. Glucose of more than 200 mg/dL in a nonstressed, ambulatory subject supports the diagnosis of Diabetes Mellitus. PERFORMED BY: [place] [id number] PATHOLOGIST LYRIC WRITER ROMAINE HENDERSON M.D. Performed By: #### P T, PTT #### [address] Glucose [Mass/Vol] 314 mg/dL Normal [facility] Comment on above: Result Comment: [place] om Glucose Reference Range is dependent on time and content of last meal. Glucose of more than 200 mg/dL in a nonstressed, ambulatory subject supports the diagnosis of Diabetes Mellitus. PERFORMED BY: [place] [address] PATHOLOGIST LYRIC WRITER ROMAINE HENDERSON M.D. Performed By: #### P T, PTT #### [address] Glucose [Mass/Vol] 288 mg/dL Normal [facility] Comment on above: Result Comment: [place] om Glucose Reference Range is dependent on time and content of last meal. Glucose of more than 200 mg/dL in a nonstressed, ambulatory subject supports the diagnosis of Diabetes Mellitus. PERFORMED BY: [place] [address] PATHOLOGIST LYRIC WRITER ROMAINE HENDERSON M.D. Performed By: #### P T, PTT #### [address] Glucose [Mass/Vol] 325 mg/dL Normal [facility] Comment on above: Result Comment: [place] om Glucose Reference Range is dependent on time and content of last meal. Glucose of more than 200 mg/dL in a nonstressed, ambulatory subject supports the diagnosis of Diabetes Mellitus. PERFORMED BY: [place] [id number] PATHOLOGIST LYRIC WRITER ROMAINE HENDERSON M.D. Performed By: #### G LULS #### Point of Care testing , Glucose [Mass/Vol] 325 mg/dL Normal [facility] Comment on above: Result Comment: [place] om Glucose Reference Range is dependent on time and content of last meal. Glucose of more than 200 mg/dL in a nonstressed, ambulatory subject supports the diagnosis of Diabetes Mellitus. PERFORMED BY: [place] [id number] PATHOLOGIST LYRIC WRITER ROMAINE HENDERSON M.D. Performed By: #### G LULS #### Point of Care testing , Partial Thromboplastin Timeo n 01-31-2025 aPTT Coag (Bld) [Time] 24.9 s Low 25.1-36.5 [facility] Comment on above: Result Comment: A he matocrit value greater than 55% may lead to inaccurate results in coagulation testing. Patients having hematocrit values >55% require a special collection tube for coagulation studies. Please contact the laboratory at [phone] for redraw instructions. PERFORMED BY: [place] [address] PATHOLOGIST LYRIC WRITER ROMAINE HENDERSON M.D. Performed By: #### P T, PTT #### [address] Prothrombin Time INRon 01-31 INR Coag (PPP) [Relative time] 1.4 {INR} Normal [facility] Comment on above: Result Comment: INR Therapeutic Range A) Pre- and Peroperative OAT started two weeks before surgery. NOT HIP SURGERY: 1.5 - 2.5 HIP SURGERY: 2 - 3 B) Primary and secondary prevention of venous THROMBOSIS: 2 - 3 C) Active venous thrombosis, pulmonary embolism and prevention of recurrent venous thrombosis: 2 - 3 D) Prevention of arterial thromboembolism including patients with mechanical heart valves: 3 - 4.5 Performed By: #### P T, PTT #### [address] PT Coag (PPP) [Time] 15.5 s High 9.0-12.9 [facility] Comment on above: Result Comment: A he matocrit value greater than 55% may lead to inaccurate results in coagulation testing. Patients having hematocrit values >55% require a special collection tube for coagulation studies. Please contact the laboratory at [phone] for redraw instructions. Performed By: #### P T, PTT #### [address] X-ray reportOrdered By: Brody Alex on 01-31-2025 Study report [facility] [place] [address] [place] [address] XRay Report Signed Patient: Fatuma Fair MR#: [id number] : 1945 Acct:[id number] Age/Sex: 80 / F ADM Date: 5 Loc: 4N Room: [address] [place] [address] Type: ADM IN Attending Dr: Alec Alvarez MD Copies to: MD Alexandra Bazzi APRN~ Ordering Provider: Alexandra Cheney APRN Date of Service: 01/31/25 XR/XR chest 1V portable: preop clearance SINGLE VIEW CHEST CLINICAL HISTORY: Preop clearance COMPARISON: None FINDINGS: Unremarkable cardiomediastinal silhouette. Moderate size hiatal hernia. Lungs clear. No effusion or pneumothorax XR/XR chest 1V portable IMPRESSION: NO ACUTE PLEURAL-PARENCHYMAL FINDINGS Impression dictated by: Devin Alex M.D.01/31/2025 2:41 PM Dictation Location: [facility]- Transcribed By: [facility] 01/31/25 1441 Dictated By: Devin Alex MD 01/31/25 1440 Signed By: 01/31/[address] [place] [address] Work Phone: XR chest 1V portableon 01-31 XR chest 1V portable [facility] [place] [address] XRay Report Signed Patient: Fatuma Fair MR#: [id number] : 1945 Acct:[id number] Age/Sex: 80 / F ADM Date: 01/29/25 Loc: Room: [address] [place] [address] Type: ADM IN Attending Dr: Alec Alvarez MD Copies to: MD Alexandra Bazzi APRN Ordering Provider: Alexandra Cheney APRN Date of Service: 01/31/25 XR/XR chest 1V portable: preop clearance SINGLE VIEW CHEST CLINICAL HISTORY: Preop clearance COMPARISON: None FINDINGS: Unremarkable cardiomediastinal silhouette. Moderate size hiatal hernia. Lungs clear. No effusion or pneumothorax XR/XR chest 1V portable IMPRESSION: NO ACUTE PLEURAL-PARENCHYMAL FINDINGS Impression dictated by: Devin Alex M.D.01/31/2025 2:41 PM Dictation Location: [place] [address] Transcribed By: [facility] 01/31/25 1441 Dictated By: Devin Alex MD 01/31/25 1440 Signed By: 01/31/25 1441 Normal [facility] Glucose Poct Glucometerson 0 01-30-2025 Glucose [Mass/Vol] 328 mg/dL Normal [facility] Comment on above: Result Comment: [facility] Glucose Reference Range is dependent on time and content of last meal. Glucose of more than 200 mg/dL in a nonstressed, ambulatory subject supports the diagnosis of Diabetes Mellitus. PERFORMED BY: [address] [place] [address] PATHOLOGIST LYRIC WRITER ROMAINE HENDERSON M.D. Performed By: #### G LULS #### Point of Care testing , Glucose [Mass/Vol] 313 mg/dL Normal [facility] Comment on above: Result Comment: [facility] Glucose Reference Range is dependent on time and content of last meal. Glucose of more than 200 mg/dL in a nonstressed, ambulatory subject supports the diagnosis of Diabetes Mellitus. PERFORMED BY: [address] [place] [address] PATHOLOGIST LYRIC WRITER ROMAINE HENDERSON M.D. Performed By: #### G LULS #### Point of Care testing , Glucose [Mass/Vol] 326 mg/dL Normal [facility] Comment on above: Result Comment: [facility] Glucose Reference Range is dependent on time and content of last meal. Glucose of more than 200 mg/dL in a nonstressed, ambulatory subject supports the diagnosis of Diabetes Mellitus. PERFORMED BY: [address] [place] [address] PATHOLOGIST LYRIC WRITER MOHAMED M EL-FAKHARANY M.D. Performed By: #### P T, PTT #### [facility] [address] [place] [address] [place] Glucose [Mass/Vol] 249 mg/dL Normal [facility] Comment on above: Result Comment: [facility] Glucose Reference Range is dependent on time and content of last meal. Glucose of more than 200 mg/dL in a nonstressed, ambulatory subject supports the diagnosis of Diabetes Mellitus. PERFORMED BY: [place] [address] PATHOLOGIST LYRIC WRITER ROMAINE HENDERSON M.D. Performed By: #### G LULS #### Point of Care testing , X-ray reportOrdered By: Ba Pinto on 01-30-2025 Study report [facility] [place] [address] [place] [address] XRay Report Signed Patient: Fatuma Fair MR#: [id number] : 1945 Acct:[id number] Age/Sex: 80 / F ADM Date: 5 Loc: Room: [address] [place] [address] Type: ADM IN Attending Dr: Alec Alvarez MD Copies to: DO Alec Luna MD~ Ordering Provider: Donell Rosenbaum DO Date of Service: 01/30/25 XR/XR lumbar spine 2-3V*: T12 burst fx 2 views Lumbar Spine HISTORY: T12 burst fracture, follow-up assessment COMPARISON: CT lumbar spine 01/28/2025 POSTSURGICAL CHANGES: None BONY ALIGNMENT: There lumbar scoliosis. Adequate lumbar lordosis. HYPERMOBILITY:No bending imaging. LISTHESIS:1 cm L5-S1 anterolisthesis. There is 7 mm L4-5 anterolisthesis. Minor L3-4 anterolisthesis. FRACTURE: T12 burst fracture with loss of vertebral height of approximately 20%redemonstrated. Mild retropulsion of fracture fragments into the central canal. DEGENERATIVE CHANGES: Multilevel degenerative change redemonstrated. SOFT TISSUES: Unremarkable BONY MINERALIZATION:Diffuse osteopenia XR/XR lumbar spine 2-3V* IMPRESSION: Stable findings of T12 burst fracture with slight retropulsion. Similar degenerative listhesis. Impression dictated by: Garrett Pinto M.D.01/30/2025 4:19 PM Dictation Location: [employer] Transcribed By: JORGE 01/30/25 1619 Dictated By: Garrett Pinto DO 01/30/25 1554 Signed By: 01/30/25 1619 [facility] XR lumbar spine 2-3V*on 01-20 XR lumbar spine 2-3V* [facility] [place] [address] [place] [address] XRay Report Signed Patient: Fatuma Fair MR#: [id number] : 1945 Acct:[id number] Age/Sex: 80 / F ADM Date: 01/29/25 Loc: Room: [address] [place] [address] Type: ADM IN Attending Dr: Alec Alvarez MD Copies to: DO Alec Luna MD Ordering Provider: Donell Rosenbaum DO Date of Service: 01/30/25 XR/XR lumbar spine 2-3V*: T12 burst fx 2 views Lumbar Spine HISTORY: T12 burst fracture, follow-up assessment COMPARISON: CT lumbar spine 01/28/2025 POSTSURGICAL CHANGES: None BONY ALIGNMENT: There lumbar scoliosis. Adequate lumbar lordosis. HYPERMOBILITY:No bending imaging. LISTHESIS:1 cm L5-S1 anterolisthesis. There is 7 mm L4-5 anterolisthesis. Minor L3-4 anterolisthesis. FRACTURE: T12 burst fracture with loss of vertebral height of approximately 20% redemonstrated. Mild retropulsion of fracture fragments into the central canal. DEGENERATIVE CHANGES: Multilevel degenerative change redemonstrated. SOFT TISSUES: Unremarkable BONY MINERALIZATION:Diffuse osteopenia XR/XR lumbar spine 2-3V* IMPRESSION: Stable findings of T12 burst fracture with slight retropulsion. Similar degenerative listhesis. Impression dictated by: Garrett Pinto M.D.01/30/2025 4:19 PM Dictation Location: [employer] Transcribed By: JORGE 01/30/25 1619 Dictated By: Garrett Pinto DO 01/30/25 1554 Signed By: 01/30/25 1619 Normal [facility] A1C with Estimated Average Genesis cabrera 01-29-2025 Glucose [Mass/Vol] 203 mg/dL Normal [facility] Comment on above: Result Comment: PERF ORMED BY: [facility] [place] [address] PATHOLOGIST LYRIC WRITER ROMAINE HENDERSON M.D. Performed By: #### G LULS #### Point of Care testing , HbA1c (Bld) [Mass fraction] 8.7 % High 4.3-5.6 [facility] Comment on above: Result Comment: Incr eased risk for diabetes: 5.7 - 6.4 diabetes: >6.4 glycemic control for adults with diabetes: <7.0 Performed By: #### G LULS #### Point of Care testing , Basic Metabolic Panelon 01-20 Anion gap [Moles/Vol] 11.7 mmol/L Normal 6.0-15.0 [facility] e [facility] Comment on above: Performed By: #### G LULS #### Point of Care testing , Calcium [Mass/Vol] 9.1 mg/dL Normal 8.6-10.3 [facility] Comment on above: Performed By: #### G LULS #### Point of Care testing , Chloride [Moles/Vol] 100 mmol/L Normal 98-107 [facility] Comment on above: Performed By: #### G LULS #### Point of Care testing , CO2 [Moles/Vol] 25.4 mmol/L Normal 21.0-31.0 [facility] Comment on above: Performed By: #### G LULS #### Point of Care testing , Creatinine [Mass/Vol] 0.78 mg/dL Normal 0.60-1.20 [facility] Comment on above: Performed By: #### G LULS #### Point of Care testing , Creatinine Clr Calc Pharmacy 48.43 Normal [facility] Comment on above: Performed By: #### G LULS #### Point of Care testing , GFR/1.73 sq M.predicted MDRD (S/P/Bld) [Vol rate/Area] mL/min/{1.73_m2} Normal [facility] Comment on above: Performed By: #### G LULS #### Point of Care testing , Glucose [Mass/Vol] 263 mg/dL High 70-100 [facility] Comment on above: Result Comment: [place] Glucose Reference Range is dependent on time and content of last meal. Glucose of more than 200 mg/dL in a nonstressed, ambulatory subject supports the diagnosis of Diabetes Mellitus. ADA recommended reference range Performed By: #### G LULS #### Point of Care testing , Potassium [Moles/Vol] 4.1 mmol/L Normal 3.5-5.1 [facility] Comment on above: Performed By: #### G LULS #### Point of Care testing , Sodium [Moles/Vol] 133 mmol/L Low 136-145 [facility] Comment on above: Performed By: #### G LULS #### Point of Care testing , Urea nitrogen [Mass/Vol] 31 mg/dL High 7-25 [facility] Comment on above: Performed By: #### G LULS #### Point of Care testing , Basophils Auto (Bld) [#/Vol] Ordered By: Tiffany Guy on 01-29-2025 Basophils (Bld) [#/Vol] Automated basophil count 0.0-0.2 [facility] Basophils/100 WBC Auto (Bld) Ordered By: Tiffany Guy on 01-29-2025 Basophils/100 WBC (Bld) Automated basophil % . [facility] Blood estimated average gluc ose determination by estimation from glycated hemoglobinOrdered By: Tiffany Guy on 01-29-2025 Average glucose Estimated from glycated hemoglobin (Bld) [Mass/Vol] Glucose mean value [Mass/volume] in Blood Estimated from glycated hemoglobin [facility] Calcium [Mass/volume] in Ser um or PlasmaOrdered By: Tiffany Guy on 01-29-2025 Calcium [Mass/Vol] Calcium [Mass/volume ] in Serum or Plasma 8.6-10.3 [facility] Carbon dioxide, total [Moles /volume] in Serum or PlasmaOrdered By: Tiffany Guy on 01-29-2025 CO2 [Moles/Vol] Carbon dioxide, tota l [Moles/volume] in Serum or Plasma 21.0-31.0 [facility] Chloride [Moles/volume] in S patricia or PlasmaOrdered By: Tiffany Guy on 01-29-2025 Chloride [Moles/Vol] Chloride [Moles/vol ume] in Serum or Plasma 98-107 [facility] Complete Blood Count Auto Di ffon 01-29-2025 Basophils (Bld) [#/Vol] 0.0 10*3/uL Normal 0.0-0.2 [facility] Comment on above: Result Comment: PERF ORMED BY: [place] [address] PATHOLOGIST LYRIC WRITER ROMAINE HENDERSON M.D. Performed By: #### C UU #### [address] Basophils/100 WBC (Bld) 0.2 % Normal . [facility] Comment on above: Performed By: #### C UU #### [address] Eosinophils (Bld) [#/Vol] 0.0 10*3/uL Normal 0.0-0.45 [facility] Comment on above: Performed By: #### C UU #### [address] Eosinophils/100 WBC (Bld) 0.3 % Normal . [facility] Comment on above: Performed By: #### C UU #### [address] Erythrocyte distribution width (RBC) [Ratio] 13.1 % Normal 11.9-15.3 [facility] Comment on above: Performed By: #### C UU #### [address] [address] [place] Hematocrit (Bld) [Volume fraction] 38.2 % Normal 34.0-46.4 [facility] Comment on above: Performed By: #### C UU #### [address] Hemoglobin (Bld) [Mass/Vol] 13.1 g/dL Normal 11.8-15.4 [facility] Comment on above: Performed By: #### C UU #### [address] Lymphocytes (Bld) [#/Vol] 0.7 10*3/uL Low 1.00-4.8 [facility] Comment on above: Performed By: #### C UU #### [address] Lymphocytes/100 WBC (Bld) 6.5 % Normal . [facility] Comment on above: Performed By: #### C UU #### [address] MCH (RBC) [Entitic mass] 34.2 pg Normal 24.7-34.3 [facility] Comment on above: Performed By: #### C UU #### [address] MCV (RBC) [Entitic vol] 100.1 fL High 80-100 [facility] Comment on above: Performed By: #### C UU #### [address] Mean Corpuscular HGB Conc 34.2 g/dL Normal 32.0-35.0 [facility] Comment on above: Performed By: #### C UU #### [address] Monocytes (Bld) [#/Vol] 0.8 10*3/uL Normal 0.0-0.8 [facility] Comment on above: Performed By: #### C UU #### [address] Monocytes/100 WBC (Bld) 7.1 % Normal . [facility] Comment on above: Performed By: #### C UU #### [facility] [address] [place] [address] [place] Neutrophils (Bld) [#/Vol] 9.5 10*3/uL High 1.8-7.7 [facility] Comment on above: Performed By: #### C UU #### [facility] [address] [place] [address] [place] Neutrophils/100 WBC (Bld) 85.9 % Normal . [facility] Comment on above: Performed By: #### C UU #### [facility] [address] NRBC% 0.0 /100{WBC} Normal 0-0.5 [facility] Comment on above: Performed By: #### C UU #### [facility] [address] Platelet mean volume (Bld) [Entitic vol] 8.9 fL Normal 6.3-10.[address] [facility] Comment on above: Performed By: #### C UU #### [facility] [address] [place] [address] [place] Platelets (Bld) [#/Vol] 178 10*3/uL Normal 150-450 [facility] Comment on above: Performed By: #### C UU #### [facility] [address] [place] [address] [place] RBC (Bld) [#/Vol] 3.82 10*6/uL Normal 3.60-5.00 [facility] Comment on above: Performed By: #### C UU #### [facility] [address] [place] [address] [place] WBC (Bld) [#/Vol] 11.0 10*3/uL Normal 3.8-11.6 [facility] Comment on above: Performed By: #### C UU #### [address] Creatinine [Mass/volume] in Serum or PlasmaOrdered By: Tiffany Guy on 01-29-2025 Creatinine [Mass/Vol] Creatinine [Mass/v olume] in Serum or Plasma 0.60-1.20 [facility] Eosinophils Auto (Bld) [#/Vo l]Ordered By: Tiffany Guy on 01-29-2025 Eosinophils (Bld) [#/Vol] Automated eosinophil count 0.0-0.45 [facility] Eosinophils/100 WBC Auto (Bl d)Ordered By: Tiffany Guy on 01-29-2025 Eosinophils/100 WBC (Bld) Automated eosinophil % . [facility] Erythrocyte distribution wid th Auto (RBC) [Ratio]Ordered By: Tiffany Guy on 01-29-2025 Erythrocyte distribution width (RBC) [Ratio] Erythrocyte distribution width [Ratio] by Automated count 11.9-15.3 [facility] Glucose Glucometer (BldC) [M ass/Vol]Ordered By: Alec Alvarez on 01-29-2025 Glucose [Mass/Vol] Capillary blood gluc ose measurement by glucometer (mass/volume) [facility] Comment on above: Random Glucose Refer ence Range is dependent on time and content of last meal. Glucose of more than 200 mg/dL in a nonstressed, ambulatory subject supports the diagnosis of Diabetes Mellitus. Glucose Poct Glucometerson 0 01-29-2025 Glucose [Mass/Vol] 281 mg/dL Normal [facility] Comment on above: Result Comment: [facility] [facility] Glucose Reference Range is dependent on time and content of last meal. Glucose of more than 200 mg/dL in a nonstressed, ambulatory subject supports the diagnosis of Diabetes Mellitus. PERFORMED BY: [place] [address] PATHOLOGIST LYRIC WRITER ROMAINE HENDERSON M.D. Performed By: #### C UU #### [address] Glucose [Mass/Vol] 247 mg/dL Normal [facility] Comment on above: Result Comment: [facility] Glucose Reference Range is dependent on time and content of last meal. Glucose of more than 200 mg/dL in a nonstressed, ambulatory subject supports the diagnosis of Diabetes Mellitus. PERFORMED BY: [facility] [place] [address] PATHOLOGIST LYRIC WRITER ROMAINE HENDEROSN M.D. Performed By: #### G DESHAWN #### Point of Care testing , Glucose [Mass/volume] in Ser um or PlasmaOrdered By: Tiffany Guy on 01-29-2025 Glucose [Mass/Vol] Glucose [Mass/volume ] in Serum or Plasma High 70-100 [facility] Comment on above: ADA recommended refe rence rangeRandom Glucose Reference Range is dependent on time and content of last meal. Glucose of more than 200 mg/dL in a nonstressed, ambulatory subject supports the diagnosis of Diabetes Mellitus. Hematocrit Auto (Bld) [Volum e fraction]Ordered By: Tiffany Guy on 01-29-2025 Hematocrit (Bld) [Volume fraction] Hematocrit [Volume Fraction] of Blood by Automated count 34.0-46.4 [facility] Hemoglobin A1c/Hemoglobin.to bárbara in BloodOrdered By: Tiffany Guy on 01-29-2025 HbA1c (Bld) [Mass fraction] Hemoglobin A1c percentage High 4.3-5.6 [facility] Comment on above: Increased risk for d iabetes: 5.7 - 6.4diabetes: >6.4glycemic control for adults with diabetes: <7.0 Hemoglobin [Mass/volume] in BloodOrdered By: Tiffany Guy on 01-29-2025 Hemoglobin (Bld) [Mass/Vol] Hemoglobin [Mass/volume] in Blood 11.8-15.4 [facility] INR in Platelet poor plasma by Coagulation assayOrdered By: Sandy Salcido on 01-29-2025 INR Coag (PPP) [Relative time] INR in Platelet poor plasma by Coagulation assay [facility] Comment on above: INR Therapeutic Rang e A) Pre- and Peroperative OAT started two weeks before surgery. NOT HIP SURGERY: 1.5 - 2.5 HIP SURGERY: 2 - 3B) Primary and secondary prevention of venous THROMBOSIS: 2 - 3C) Active venous thrombosis, pulmonary embolismand prevention of recurrent venous thrombosis: 2 - 3D) Prevention of arterial thromboembolismincluding patients with mechanical heart valves: 3 - 4.5 Leukocytes [#/volume] correc london for nucleated erythrocytes in Blood by Automated counOrdered By: Tiffany Guy on 01-29-2025 WBC corrected for nucl RBC Auto (Bld) [#/Vol] Leukocytes [#/volume] corrected for nucleated erythrocytes in Blood by Automated coun 3.8-11.6 [facility] Lymphocytes Auto (Bld) [#/Vo l]Ordered By: Tiffany Guy on 01-29-2025 Lymphocytes (Bld) [#/Vol] Lymphocytes [#/volume] in Blood by Automated count Low 1.00-4.8 [facility] Lymphocytes/100 WBC Auto (Bl d)Ordered By: Tiffany Guy on 01-29-2025 Lymphocytes/100 WBC (Bld) Lymphocytes/100 leukocytes in Blood by Automated count . [facility] MCH Auto (RBC) [Entitic mass ]Ordered By: Tiffany Guy on 01-29-2025 MCH (RBC) [Entitic mass] MCH [Entitic mass] by Automated count 24.7-34.3 [facility] MCHC Auto (RBC) [Mass/Vol]Or dered By: Tiffany Guy on 01-29-2025 MCHC (RBC) [Mass/Vol] MCHC [Mass/volume] by Automated count 32.0-35.0 [facility] MCV Auto (RBC) [Entitic vol] Ordered By: Tiffany Guy on 01-29-2025 MCV (RBC) [Entitic vol] MCV [Entitic volume] by Automated count High 80-100 [facility] MR lumbar spine wo conon MR lumbar spine wo con [facility] [place] [address] MRI Report Signed Patient: Fatuma Fair MR#: [id number] : 1945 Acct:[id number] Age/Sex: 80 / F ADM Date: 01/29/25 Loc: Room: [address] [place] [address] Type: ADM IN Attending Dr: Alec Alvarez MD Copies to: DO Alec Luna MD Ordering Provider: Donell Rosenbaum DO Date of Service: 01/29/25 MR/MR lumbar spine wo con: fall w T12 burst fx MRI lumbar spine performed without contrast INDICATION: T12 burst fracture MR/MR lumbar spine wo con IMPRESSION: CT lumbar spine from [facility] 01/28/2025 FINDINGS: T12 burst fracture with 25-30% loss of height with associated retropulsion into the into the canal 6 mm.. No findings suggest posterior ligamentous complex injury. The remaining lumbar vertebral heights are maintained. Anterolisthesis L3 on L4 3 mm, anterolisthesis L4-L5 1 cm anterolisthesis L5 on S1 8 mm. Pars interarticularis defects at L5 noted. Remaining lumbar vertebral heights are preserved without evidence of additional areas of edema to suggest acute compression fracture. Moderate loss of disc space height and signal L3-S1. Conus medullaris appears normally at L1-L2. Paraspinal soft tissues are unremarkable. T11-T12: Burst fracture noted. No significant disc protrusion or central canal or neural foraminal narrowing identified. There is mild subarticular recess narrowing L3-4 bilaterally related to the burst fracture causing mild canal narrowing. L1-L3: Minimal facet arthropathy. No significant disc disease, central canal or neural foraminal narrowing identified. L3-4: Circumferential disc bulge asymmetric towards the right with superimposed right subarticular zone extrusion extending to right foraminal zone. This results in moderate severe right and moderate left neural foraminal narrowing. Bilateral facet arthropathy with associated effusions, greatest right. Moderate severe central canal stenosis. L4-5: Circumferential disc bulge with slight uncovering of the posterior disc. Moderate severe central canal stenosis and moderate severe facet arthropathy. Moderate severe central canal, right foraminal narrowing. There is moderate left neural from narrowing. Moderate subarticular zone effacement, correlate with L5 radiculopathy.. L5-S1: 8 millimeters anterolisthesis with uncovering the posterior disc with circumferential disc bulge asymmetric towards left bulky left far lateral disc osteophyte complex. Moderate severe degenerative facet arthropathy identified. Moderate severe left moderate right neural foraminal narrowing. Canal is patent. Pars intra-articular is defects noted. IMPRESSION: T12 burst fracture with 25-30% loss of height and retropulsion causing mild canal narrowing at this level. No abnormal edema within the posterior ligamentous complex. Moderate severe central canal narrowing L3-L5 due to the disease and posterior element hypertrophic changes. Moderate severe right neural foraminal/subarticular recess narrowing at L3-L4 due to disc extrusion, correlate with right L3 and L4 radiculopathy. Bilateral pars defects at L5 with 8 mm anterolisthesis. Anterolisthesis L3-4 L4-5 likely related to advanced facet arthropathy. Impression dictated by: Devin Alex M.D.01/29/2025 1:56 PM Dictation Location: [place] [address] Transcribed By: [facility] 01/29/25 1356 Dictated By: Devin Alex MD 01/29/25 1344 Signed By: 01/29/25 1356 Normal [facility] Magnesiumon 01-29-2025 Magnesium [Mass/Vol] 1.8 mg/dL Low 1.9-2.7 [facility] Comment on above: Result Comment: PERF ORMED BY: [place] [address] PATHOLOGIST LYRIC WRITER ROMAINE HENDERSON M.D. Performed By: #### G LUISIDRA #### Point of Care testing , Magnesium [Mass/volume] in S patricia or PlasmaOrdered By: Tiffany Guy on 01-29-2025 Magnesium [Mass/Vol] Magnesium [Mass/vol ume] in Serum or Plasma Low 1.9-2.7 [facility] Magnetic resonance imaging r eportOrdered By: Devin Alex on 01-29-2025 Study report [facility] [place] [address] MRI Report Signed Patient: Fatuma Fair MR#: [id number] : 1945 Acct:[id number] Age/Sex: 80 / F ADM Date: 5 Loc: Room: [address] [place] [address] Type: ADM IN Attending Dr: Alec Alvarez MD Copies to: DO Alec Luna MD~ Ordering Provider: Donell Rosenbaum DO Date of Service: 01/29/25 MR/MR lumbar spine wo con: fall w T12 burst fx MRI lumbar spine performed without contrast INDICATION: T12 burst fracture MR/MR lumbar spine wo con IMPRESSION: CT lumbar spine from [facility] 01/28/2025 FINDINGS: T12 burst fracture with 25-30% loss of height with associated retropulsion into the into the canal 6 mm.. No findings suggest posterior ligamentous complex injury. The remaining lumbar vertebral heights are maintained. Anterolisthesis L3 on L4 3 mm, anterolisthesis L4-L5 1 cm anterolisthesis L5 on S1 8 mm. Pars interarticularis defects at L5 noted. Remaining lumbar vertebral heights are preserved without evidence of additional areas of edema to suggest acute compression fracture. Moderate loss of disc space height and signal L3-S1. Conus medullaris appears normally at L1-L2. Paraspinal soft tissues are unremarkable. T11-T12: Burst fracture noted. No significant disc protrusion or central canal or neural foraminal narrowing identified. There is mild subarticular recess narrowing L3-4 bilaterally related to the burst fracture causing mild canal narrowing. L1-L3: Minimal facet arthropathy. No significant disc disease, central canal orneural foraminal narrowing identified. L3-4: Circumferential disc bulge asymmetric towards the right with superimposed right subarticular zone extrusion extending to right foraminal zone. This results in moderate severe right and moderate left neural foraminal narrowing. Bilateral facet arthropathy with associated effusions, greatest right. Moderatesevere central canal stenosis. L4-5: Circumferential disc bulge with slight uncovering of the posterior disc. Moderate severe central canal stenosis and moderate severe facet arthropathy. Moderate severe central canal, right foraminal narrowing. There is moderate left neural from narrowing. Moderate subarticular zone effacement, correlate with L5 radiculopathy.. L5-S1: 8 millimeters anterolisthesis with uncovering the posterior disc with circumferential disc bulge asymmetric towards left bulky left far lateral disc osteophyte complex. Moderate severe degenerative facet arthropathy identified. Moderate severe left moderate right neural foraminal narrowing. Canal is patent. Pars intra-articular is defects noted. IMPRESSION: T12 burst fracture with 25-30% loss of height and retropulsion causing mild canal narrowing at this level. No abnormal edema within the posterior ligamentous complex. Moderate severe central canal narrowing L3-L5 due to the disease and posterior element hypertrophic changes. Moderate severe right neural foraminal/subarticular recess narrowing at L3-L4 due to disc extrusion, correlate with right L3 and L4 radiculopathy. Bilateral pars defects at L5 with 8 mm anterolisthesis. Anterolisthesis L3-4 L4-5 likely related to advanced facet arthropathy. Impression dictated by: Devin Alex M.D.01/29/2025 1:56 PM Dictation Location: [place] [address] Transcribed By: [facility] 01/29/25 135 Dictated By: Devin Alex MD 01/29/25 1344 Signed By: 01/29/25 1356 [facility] Work Phone: Monocytes Auto (Bld) [#/Vol] Ordered By: Tiffany Guy on 01-29-2025 Monocytes (Bld) [#/Vol] Automated blood monocyte count 0.0-0.8 [facility] Monocytes/100 WBC Auto (Bld) Ordered By: Tiffany Guy on 01-29-2025 Monocytes/100 WBC (Bld) Automated monocyte % . [facility] Neutrophils Auto (Bld) [#/Vo l]Ordered By: Tiffany Guy on 01-29-2025 Neutrophils (Bld) [#/Vol] Neutrophils [#/volume] in Blood by Automated count High 1.8-7.7 [facility] Neutrophils/100 WBC Auto (Bl d)Ordered By: Tiffany Guy on 01-29-2025 Neutrophils/100 WBC (Bld) Automated neutrophil % . [facility] No Panel InformationOrdered By: Tiffany Guy on 01-29-2025 Estimated GFR (CKD-EPI) > 60.0 mL/Min [facility] Creatinine Clearance (Chem 48.43 [facility] Nucleated erythrocytes [Pres ence] in Blood by Automated countOrdered By: Tiffany Guy on 01-29-2025 Nucleated RBC Auto Ql (Bld) Nucleated erythrocytes [Presence] in Blood by Automated count 0-0.5 [facility] Platelet mean volume Auto (B ld) [Entitic vol]Ordered By: Tiffany Guy on 01-29-2025 Platelet mean volume (Bld) [Entitic vol] Platelet mean volume [Entitic volume] in Blood by Automated count 6.3-10.7 [facility] Platelets Auto (Bld) [#/Vol] Ordered By: Tiffany Guy on 01-29-2025 Platelets (Bld) [#/Vol] Platelets [#/volume] in Blood by Automated count 150-450 [facility] Potassium [Moles/volume] in Serum or PlasmaOrdered By: Tiffany Guy on 01-29-2025 Potassium [Moles/Vol] Potassium [Moles/v olume] in Serum or Plasma 3.5-5.1 [facility] Procalcitoninon 01-29-2025 Procalcitonin 0.12 ng/mL High 0.00-0.08 [facility] Comment on above: Result Comment: A pr ocalcitonin (PCT) level above 2.0 ng/mL on the first day of ICU admission is associated with a high risk for progression to severe sepsis and/or septic shock. A PCT level below 0.5 ng/mL on the first day of ICU admission is associated with a low risk for progression to severe sepsis and/or septic shock. Note: Concentrations <0.5 ng/mL do not exclude an infection, on account of localized infections (without systemic signs) which can be associated with such low concentrations, or a systemic infection in its initial stages (<6 hours). Furthermore, increased procalcitonin can occur without infection. PCT concentrations between 0.5 and 2.0 ng/mL should be interpreted taking into account the patient's history. It is recommended to retest PCT within 6-24 hours if any concentrations <2 ng/mL are obtained. Performed at: [address] [id number] [employer]othe[employer] Machine Operator: Shari Ruiz MD, Phone: [phone] PERFORMED BY: [facility] [address] [place] [address] PATHOLOGIST LYRIC WRITER ROMAINE HENDERSON M.D. Performed By: #### G LULS #### Point of Care testing , Procalcitonin [Mass/volume] in Serum or PlasmaOrdered By: Tiffany Guy on 01-29-2025 Procalcitonin [Mass/Vol] Serum procalcitonin measurement High 0.00-0.08 [facility] Comment on above: A procalcitonin (PCT ) level above 2.0 ng/mL on the firstday of ICU admission is associated with a high risk forprogression to severe sepsis and/or septic shock.A PCT level below 0.5 ng/mL on the first day of ICUadmission is associated with a low risk for progressionto severe sepsis and/or septic shock.Note: Concentrations <0.5 ng/mL do not exclude aninfection, on account of localized infections (withoutsystemic signs) which can be associated with such lowconcentrations, or a systemic infection in its initialstages (<6 hours).Furthermore, increased procalcitonin can occur withoutinfection. PCT concentrations between 0.5 and 2.0 ng/mLshould be interpreted taking into account the patient'shistory. It is recommended to retest PCT within 6-24 hoursif any concentrations <2 ng/mL are obtained.Performed at: [address] [id number] Director: Shari Ruiz MD, Phone: [phone] Prothrombin Time INRon 01-29 INR Coag (PPP) [Relative time] 2.0 {INR} Normal [facility] Comment on above: Result Comment: INR Therapeutic Range A) Pre- and Peroperative OAT started two weeks before surgery. NOT HIP SURGERY: 1.5 - 2.5 HIP SURGERY: 2 - 3 B) Primary and secondary prevention of venous THROMBOSIS: 2 - 3 C) Active venous thrombosis, pulmonary embolism and prevention of recurrent venous thrombosis: 2 - 3 D) Prevention of arterial thromboembolism including patients with mechanical heart valves: 3 - 4.5 PERFORMED BY: [place] [address] PATHOLOGIST LYRIC WRITER ROMAINE HENDERSON M.D. Performed By: #### P T #### [address] PT Coag (PPP) [Time] 22.6 s High 9.0-12.9 [facility] Comment on above: Result Comment: A he matocrit value greater than 55% may lead to inaccurate results in coagulation testing. Patients having hematocrit values >55% require a special collection tube for coagulation studies. Please contact the laboratory at [phone] for redraw instructions. Performed By: #### P T #### [address] [address] [facility] Prothrombin time (PT)Ordered By: Sandy Salcido on 01-29-2025 PT Coag (PPP) [Time] Prothrombin time (PT) High 9.0- 12.9 [facility] Comment on above: A hematocrit value g reater than 55% may lead to inaccurate results in coagulation testing. Patients having hematocrit values >55% require a special collection tube for coagulation studies. Please contact the laboratory at [phone] for redraw instructions. RBC Auto (Bld) [#/Vol]Ordere d By: Tiffany Guy on 01-29-2025 RBC (Bld) [#/Vol] Erythrocytes [#/volu me] in Blood by Automated count 3.60-5.00 [facility] Serum or plasma anion gap de terminationOrdered By: Tiffany Guy on 01-29-2025 Anion gap [Moles/Vol] Serum or plasma an ion gap determination 6.0-15.0 [facility] Sodium [Moles/volume] in Ser um or PlasmaOrdered By: Tiffany Guy on 01-29-2025 Sodium [Moles/Vol] Sodium [Moles/volume ] in Serum or Plasma Low 136-145 [facility] Urea nitrogen [Mass/volume] in Serum or PlasmaOrdered By: Tiffany Guy on 01-29-2025 Urea nitrogen [Mass/Vol] Urea nitrogen [Mass/volume] in Serum or Plasma High 7-25 [facility] Urine Cultureon 01-29-2025 Bacteria identified Cx Nom (U) >100,000 colonies/ml mixed bacterial skin contaminants 2 Days PERFORMED BY: [facility] [address] [place] [id number] PATHOLOGIST LYRIC WRITER ROMAINE Thompson [facility] Comment on above: Performed By: #### C UU #### [address] Urine cultureOrdered By: Tati Salcido on 01-29-2025 Bacteria identified Cx Nom (U) Urine culture [facility] WBC Auto (Bld) [#/Vol]Ordere d By: Tiffany Guy on 01-29-2025 WBC (Bld) [#/Vol] Leukocytes [#/volume ] in Blood by Automated count 3.8-11.6 [facility] Basophils Auto (Bld) [#/Vol] on 01-28-2025 Basophils (Bld) [#/Vol] Automated basophil count 0.0-0.1 [facility] Basophils/100 WBC Auto (Bld) on 01-28-2025 Basophils/100 WBC (Bld) Automated basophil % Low 0.2-2.0 [facility] Eosinophils/100 WBC Auto (Bl d)on 01-28-2025 Eosinophils/100 WBC (Bld) Automated eosinophil % Low 0.9-7.0 [facility] Erythrocyte distribution wid th Auto (RBC) [Ratio]on 01-28-2025 Erythrocyte distribution width (RBC) [Ratio] Erythrocyte distribution width [Ratio] by Automated count 11.0-15.0 [facility] Estimated glomerular filtrat ion rate (GFR) non- Americanon 01-28-2025 GFR/1.73 sq M.predicted among non-blacks MDRD (S/P/Bld) [Vol rate/Area] Estimated glomerular filtration rate (GFR) non- Low >=60 mL/min/1.7 3m 2 [facility] Hematocrit Auto (Bld) [Volum e fraction]on 01-28-2025 Hematocrit (Bld) [Volume fraction] Hematocrit [Volume Fraction] of Blood by Automated count 36.0-48.0 [facility] Hemoglobin [Mass/volume] in Bloodon 01-28-2025 Hemoglobin (Bld) [Mass/Vol] Hemoglobin [Mass/volume] in Blood 12.0-16.0 [facility] Laboratory - Chemistry and C hemistry - challengeon 01-28-2025 Calcium [Mass/Vol] 9.6 mg/dL 8.5-10.1 [facility] Chloride [Moles/Vol] 96 mmol/L Low 98-107 [facility] CO2 [Moles/Vol] 27.0 mmol/L 21.0-32.0 [facility] Creatinine [Mass/Vol] 1.17 mg/dL High 0.55-1.02 [facility] GFR/1.73 sq M.predicted MDRD (S/P/Bld) [Vol rate/Area] 54 mL/min/{1.73_m2} Low >=60 mL/min/1.7 3m 2 [facility] Glucose [Mass/Vol] 308 mg/dL High 74-106 [facility] Potassium [Moles/Vol] 4.0 mmol/L 3.5-5.1 [facility] Sodium [Moles/Vol] 132 mmol/L Low 136-145 [facility] Urea nitrogen [Mass/Vol] 39.0 mg/dL High 7.0-18.0 [facility] Urea nitrogen/Creatinine [Mass ratio] 33.3 mg/mg [facility] Laboratory - Hematology and Cell countson 01-28-2025 Immature granulocytes/100 WBC (Bld) 0.8 % High 0.0-0.5 [facility] Leukocytes [#/volume] correc l[place] for nucleated erythrocytes in Blood by Automated counon 01-28-2025 WBC corrected for nucl RBC Auto (Bld) [#/Vol] Leukocytes [#/volume] corrected for nucleated erythrocytes in Blood by Automated coun High 4.0-11.0 [facility] Lymphocytes Auto (Bld) [#/Vo l]on 01-28-2025 Lymphocytes (Bld) [#/Vol] Lymphocytes [#/volume] in Blood by Automated count Low 1.2-3.8 [facility] Lymphocytes/100 WBC Auto (Bl d)on 01-28-2025 Lymphocytes/100 WBC (Bld) Lymphocytes/100 leukocytes in Blood by Automated count Low 20.5-60.0 [facility] MCH Auto (RBC) [Entitic mass ]on 01-28-2025 MCH (RBC) [Entitic mass] MCH [Entitic mass] by Automated count High 26.7-34.0 [facility] MCHC Auto (RBC) [Mass/Vol]on 01-28-2025 MCHC (RBC) [Mass/Vol] MCHC [Mass/volume] by Automated count 29.9-35.2 [facility] MCV Auto (RBC) [Entitic vol] on 01-28-2025 MCV (RBC) [Entitic vol] MCV [Entitic volume] by Automated count High 81.0-99.0 [facility] Monocytes Auto (Bld) [#/Vol] on 01-28-2025 Monocytes (Bld) [#/Vol] Automated blood monocyte count High 0.3-0.8 [facility] Monocytes/100 WBC Auto (Bld) on 01-28-2025 Monocytes/100 WBC (Bld) Automated monocyte % 1.7-12.0 [facility] Neutrophils Auto (Bld) [#/Vo l]on 01-28-2025 Neutrophils (Bld) [#/Vol] Neutrophils [#/volume] in Blood by Automated count High 1.4-6.5 [facility] Neutrophils/100 WBC Auto (Bl d)on 01-28-2025 Neutrophils/100 WBC (Bld) Automated neutrophil % High 43.0-75.0 [facility] No Panel Informationon 01-28 Eosinophils # (Auto) 0.0 10 3/uL 0.0-0.7 [facility] Immature Granulocyte # (Auto) 0.14 10 3/uL High 0.00-0.03 [facility] Platelet mean volume Auto (B ld) [Entitic vol]on 01-28-2025 Platelet mean volume (Bld) [Entitic vol] Platelet mean volume [Entitic volume] in Blood by Automated count 9.5-13.5 [facility] Platelets Auto (Bld) [#/Vol] on 01-28-2025 Platelets (Bld) [#/Vol] Platelets [#/volume] in Blood by Automated count 150-450 [facility] RBC Auto (Bld) [#/Vol]on RBC (Bld) [#/Vol] Erythrocytes [#/volu me] in Blood by Automated count Low 4.20-5.40 [facility] Serum or plasma anion gap de terminationon 01-28-2025 Anion gap [Moles/Vol] Serum or plasma an ion gap determination [facility] Urine Cultureon 01-28-2025 Bacteria identified Cx Nom (U) >100,000 colonies/ml mixed bacterial skin contaminants 2 Days PERFORMED BY: [facility] [address] [place] [address] PATHOLOGIST LYRIC WRITER ROMAINE HENDERSON M.D. Normal [facility] Comment on above: Performed By: #### G LULS #### Point of Care testing , Urine cultureOrdered By: Ronald Forbes on 01-28-2025 Bacteria identified Cx Nom (U) Urine culture [facility] XR Femur and Tibia Views for leg lengthon 01-23-2025 Total limb length discrepancy = 0.3 cm Focal area of cortical thickening in the proximal left femur on single AP view. Recommend dedicated left femur radiographs. [facility] EXAMINATION: BONE LENGTH STUDIES, 01/22/2025 [...] focal cortical thickening proximal left femoral diaphysis. [facility] José Luis Gill D O - 01/23/2025 EXAMINATION: BONE LENGTH STUDIES, 01/22/2025 [...] AP view. Recommend dedicated left femur radiographs. [facility] XR Femur and Tibia Views for leg lengthOrdered By: José Luis Gill on 01-23-2025 [facility] Work Phone: XR LEG LENGTH EVALUATIONon 0 [...] Luis Gill DO 01/23/25 Final result Normal [facility] XR Femur and Tibia Views for leg lengthon 01-22-2025 Radiology Study observation (narrative) [facility] XR Foot - left 3 [facility] [...] fascia distal to the plantar fascial origin. [facility] Radiology Study observation (narrative) [facility] XR Foot - right 3 [facility] [...] fascia distal to the plantar fascial origin. [facility] Radiology Study observation (narrative) [facility] HbA1c HPLC (Bld) [Mass fract ion]on 01-03-2025 HbA1c (Bld) [Mass fraction] Hemoglobin A1c/Hemoglobin.total in Blood by HPLC [facility] XR FEMUR RIGHT (MIN 2 VIEWS) on 08-15-2024 XR FEMUR RIGHT (MIN 2 VIEWS) EXAMINATION: XRAY VIEWS OF THE RIGHT FEMUR 08/15/2024 2:53 pm COMPARISON: September 24, 2023 HISTORY: ORDERING SYSTEM PROVIDED HISTORY: Closed fracture of shaft of right femur, initial encounter ([facility]) FINDINGS: Interval hardware s/p ORIF mid right femur. Stable total right hip arthroplasty. No acute interval change. Generalized osteopenia. There is atherosclerosis through the soft tissues. IMPRESSION: Status post ORIF right femur fracture. No acute findings. Interpreted by: José Luis Gill DO Signed by: José Luis Gill DO 08/15/24 Final result Normal [facility] Office Visiton 08-11-2024 Follow-up visit [id number] Briseyda Fair José 1945 F Date Provider Department Center 08/11/2024 MATT MEDEIROS CARD [facility] Family History Problem Relation Age of Onset Heart attack Father Stroke Father Family Status - Relation Status Age at Father Level of Service:66381 SD OFFICE/OUTPATIENT ESTABLISHED LOW MDM 20 MIN Normal [facility] Glucose mean value [Mass/vol ume] in Blood Estimated from glycated hemoglobinon 07-27-2024 Average glucose Estimated from glycated hemoglobin (Bld) [Mass/Vol] 171 mg/dL [facility] Laboratory - Chemistry and C hemistry - challengeon 07-27-2024 TSH Qn 2.479 m[IU]/L 0.358-3.74 0 [facility] Laboratory - Hematology and Cell countson 07-27-2024 HbA1c (Bld) [Mass fraction] 7.6 % High 4.5-6.2 [facility] Comment on above: ADA RECOMMENDED LIMI T 4.0 - 6.0ADA THERAPEUTIC TARGET < 7.0ACTION SUGGESTED> 7.0 Influenza virus B Ag [Presen ce] in Upper respiratory specimen by Rapid immunoassayon 07-18-2024 FLUBV Ag IA.rapid Ql (Nph) Negative [facility] No Panel Informationon 07-18 Influenza Type A (Rapid) Negative [facility] POC SARS CoV-2 Antigen Positive [facility] Laboratory - Chemistry and C hemistry - challengeon 07-10-2024 Bilirubin Ql (U) Negative [facility] Glucose (U) [Mass/Vol] Negative [facility] Ketones Ql (U) 1.005 [facility] pH (U) 5.0 [pH] [facility] Specific gravity (U) [Rel density] 1.010 [facility] Urobilinogen (U) [Mass/Vol] 0.2 mg/dL [facility] Laboratory - Specimen inform ationon 07-10-2024 Appearance (U) cloudy [facility] Color (U) yellow [facility] Laboratory - Urinalysison Leukocyte esterase Test strip Ql (U) moderate [facility] Nitrite Ql (U) Negative [facility] Protein Ql (U) 4 [facility] No Panel Informationon 07-10 Urine Occult Blood 7.5 [facility] Laboratory - Chemistry and C hemistry - challengeon 05-30-2024 Bilirubin Ql (U) Negative [facility] Glucose (U) [Mass/Vol] Negative [facility] Ketones Ql (U) Negative [facility] pH (U) 5.0 [pH] [facility] Specific gravity (U) [Rel density] 1.010 [facility] Urobilinogen (U) [Mass/Vol] 0.2 mg/dL [facility] Laboratory - Specimen inform ationon 05-30-2024 Appearance (U) cloudy [facility] Color (U) yellow [facility] Laboratory - Urinalysison Leukocyte esterase Test strip Ql (U) ++ [facility] Nitrite Ql (U) Negative [facility] Protein Ql (U) Positive [facility] No Panel Informationon 05-30 Urine Occult Blood +++ [facility] Basophils Auto (Bld) [#/Vol] on 02-25-2024 Basophils (Bld) [#/Vol] 0.1 10 3/uL 0.0-0.1 [facility] Basophils/100 WBC Auto (Bld) on 02-25-2024 Basophils/100 WBC (Bld) 0.9 % 0.2-2.0 [facility] Cholesterol in LDL Calc [Mas s/Vol]on 02-25-2024 Cholesterol in LDL [Mass/Vol] 76.0 mg/dL [facility] Comment on above: <100 mg/dl [id number] 0-129 mg/dl NEAR OR ABOVE [id number] mg/dl BORDERLINE [id number] mg/dl HIGH>190 mg/dl VERY HIGH Cholesterol in VLDL Calc [Ma ss/Vol]on 02-25-2024 Cholesterol in VLDL [Mass/Vol] 19.6 mg/dL [facility] Eosinophils/100 WBC Auto (Bl d)on 02-25-2024 Eosinophils/100 WBC (Bld) 5.1 % 0.9-7.0 [facility] Erythrocyte distribution wid th Auto (RBC) [Ratio]on 02-25-2024 Erythrocyte distribution width (RBC) [Ratio] 14.8 % 11.0-15.0 [facility] Estimated glomerular filtrat ion rate (GFR) non- Americanon 02-25-2024 GFR/1.73 sq M.predicted among non-blacks MDRD (S/P/Bld) [Vol rate/Area] 53 mL/min/{1.73_m2} >=60 [facility] Globulin Calc (S) [Mass/Vol] on 02-25-2024 Globulin (S) [Mass/Vol] 3.7 g/dL [facility] Glucose mean value [Mass/vol ume] in Blood Estimated from glycated hemoglobinon 02-25-2024 Average glucose Estimated from glycated hemoglobin (Bld) [Mass/Vol] 137 mg/dL [facility] Hematocrit Auto (Bld) [Volum e fraction]on 02-25-2024 Hematocrit (Bld) [Volume fraction] 40.0 % 36.0-48.0 [facility] Hemoglobin [Mass/volume] in Bloodon 02-25-2024 Hemoglobin (Bld) [Mass/Vol] 12.9 g/dL 12.0-16.0 [facility] Laboratory - Chemistry and C hemistry - challengeon 02-25-2024 Albumin [Mass/Vol] 3.9 g/dL 3.4-5.0 [facility] ALP [Catalytic activity/Vol] 80 U/L 46-116 [facility] ALT [Catalytic activity/Vol] 45 U/L 14-59 [facility] AST [Catalytic activity/Vol] 34 U/L 15-37 [facility] Bilirubin [Mass/Vol] 0.6 mg/dL 0.2-1.0 [facility] Calcium [Mass/Vol] 9.7 mg/dL 8.5-10.1 [facility] Chloride [Moles/Vol] 103 mmol/L 98-107 [facility] Cholesterol [Mass/Vol] 157 mg/dL <=200 [facility] Cholesterol in HDL [Mass/Vol] 62 mg/dL 40-60 [facility] Comment on above: > or =60 mg/dl - LOW CARDIOVASCULAR RISK<40 mg/dl - HIGH CARDIOVASCULAR RISK CO2 [Moles/Vol] 26.5 mmol/L 21.0-32.0 [facility] Creatinine [Mass/Vol] 1.00 mg/dL 0.55-1.02 [facility] Free T4 [Mass/Vol] 0.55 ng/dL 0.76-1.46 [facility] GFR/1.73 sq M.predicted MDRD (S/P/Bld) [Vol rate/Area] mL/min/{1.73_m2} >=60 [facility] Glucose [Mass/Vol] 136 mg/dL 74-106 [facility] Potassium [Moles/Vol] 3.9 mmol/L 3.5-5.1 [facility] Protein [Mass/Vol] 7.6 g/dL 6.4-8.2 [facility] Sodium [Moles/Vol] 141 mmol/L 136-145 [facility] Triglyceride [Mass/Vol] 98 mg/dL <=150 [facility] TSH Qn 13.739 m[IU]/L 0.358-3.74 0 [facility] Urea nitrogen [Mass/Vol] 23.0 mg/dL 7.0-18.0 [facility] Urea nitrogen/Creatinine [Mass ratio] 23.0 mg/mg [facility] Laboratory - Hematology and Cell countson 02-25-2024 HbA1c (Bld) [Mass fraction] 6.4 % 4.5-6.2 [facility] Comment on above: ADA RECOMMENDED LIMI T 4.0 - 6.0ADA THERAPEUTIC TARGET < 7.0ACTION SUGGESTED> 7.0 Immature granulocytes/100 WBC (Bld) 0.2 % 0.0-0.5 [facility] Leukocytes [#/volume] correc london for nucleated erythrocytes in Blood by Automated counon 02-25-2024 WBC corrected for nucl RBC Auto (Bld) [#/Vol] 5.7 10 3/uL 4.0-11.0 [facility] Lymphocytes Auto (Bld) [#/Vo l]on 02-25-2024 Lymphocytes (Bld) [#/Vol] 1.1 10 3/uL 1.2-3.8 [facility] Lymphocytes/100 WBC Auto (Bl d)on 02-25-2024 Lymphocytes/100 WBC (Bld) 19.0 % 20.5-60.0 [facility] MCH Auto (RBC) [Entitic mass ]on 02-25-2024 MCH (RBC) [Entitic mass] 32.1 pg 26.7-34.0 [facility] MCHC Auto (RBC) [Mass/Vol]on 02-25-2024 MCHC (RBC) [Mass/Vol] 32.3 g/dL 29.9-35.2 [facility] MCV Auto (RBC) [Entitic vol] on 02-25-2024 MCV (RBC) [Entitic vol] 99.5 fL 81.0-99.0 [facility] Microalbumin [Mass/volume] i n Urineon 02-25-2024 Albumin DL <= 20 mg/L (U) [Mass/Vol] mg/dL <=30.0 [facility] Monocytes Auto (Bld) [#/Vol] on 02-25-2024 Monocytes (Bld) [#/Vol] 0.5 10 3/uL 0.3-0.8 [facility] Monocytes/100 WBC Auto (Bld) on 02-25-2024 Monocytes/100 WBC (Bld) 8.6 % 1.7-12.0 [facility] Neutrophils Auto (Bld) [#/Vo l]on 02-25-2024 Neutrophils (Bld) [#/Vol] 3.8 10 3/uL 1.4-6.5 [facility] Neutrophils/100 WBC Auto (Bl d)on 02-25-2024 Neutrophils/100 WBC (Bld) 66.2 % 43.0-75.0 [facility] No Panel Informationon 02-24 Eosinophils # (Auto) 0.3 10 3/uL 0.0-0.7 [facility] Immature Granulocyte # (Auto) 0.01 10 3/uL 0.00-0.03 [facility] Total Triiodothyronine 117 ng/dL 71-180 [facility] Comment on above: Performed at: [place] [id number] Director: Brad Figueroa PhD, Phone: [phone] Platelet mean volume Auto (B ld) [Entitic vol]on 02-25-2024 Platelet mean volume (Bld) [Entitic vol] 10.3 fL 9.5-13.5 [facility] Platelets Auto (Bld) [#/Vol] on 02-25-2024 Platelets (Bld) [#/Vol] 232 10 3/uL 150-450 [facility] RBC Auto (Bld) [#/Vol]on RBC (Bld) [#/Vol] 4.02 10 6/uL 4.20-5.40 [facility] Serum or plasma albumin/glob ulin mass ratioon 02-25-2024 Albumin/Globulin [Mass ratio] 1.1 {ratio} [facility] Serum or plasma anion gap de terminationon 02-25-2024 Anion gap [Moles/Vol] 15.4 mmol/L [facility] Serum or plasma total choles terol/high density lipoprotein (HDL) cholesterol mass katie 02-25-2024 Cholesterol.total/Chol esterol in HDL [Mass ratio] 2.5 {ratio} [facility] Comment on above: 3.3 - 4.4 LOW RISK4. 4 - 7.1 AVERAGE RISK7.1 - 11.0 MODERATE RISK>11.0 HIGH RISK Office Visiton 02-01-2024 Follow-up visit [id number] Briseyda Fair 1945 F Date Provider Department Center 02/01/2024 SANTIAGO VINSON ALBAN [facility] Family History Problem Relation Age of Onset Heart attack Father Stroke Father Family Status - Relation Status Age at Father Level of Service:81647 SD OFFICE/OUTPATIENT ESTABLISHED LOW MDM 20 MIN Normal [facility] Office Visiton 11-23-2023 Follow-up visit [id number] Briseyda Fair 1945 F Date Provider Department Center 11/23/2023 Elbert6-KARLEE PEARSON ALBAN [facility] Family History Problem Relation Age of Onset Heart attack Father Stroke Father Family Status - Relation Status Age at Father Level of Service:85114 SD OFFICE/OUTPATIENT ESTABLISHED MOD MDM 30 MIN Normal [facility] HPon 10-21-2023 [facility] Electrophysiology Consult Note Reason for visit: afib, right THR cardiac clearance HPI: Fatuma Fair is a 78 y.o. year old with [...] feeling safe in relationship, no alcohol abuse, Hematologic/Lymphatic Hematologic/Lymphatic no swollen glands, no bruising Physical Exam: [...] no pal (more content not included)... Normal [facility] NURSNOTEon 10-21-2023 NURSNOTE Report called to [facility] Normal [facility] GLUCOSE POCon 09-30-2023 Glucose [Mass/Vol] 162 mg/dL High [address] Comment on above: Performed By: #### A NION, CBCWD, ICAL, EGFR1, BMPX #### [facility] [address] [place] [address] GLUCOSE POCon 09-29-2023 Glucose [Mass/Vol] 255 mg/dL High 70-108 [facility] Comment on above: Performed By: #### P OCGL #### [facility] [address] [place] [address] Glucose [Mass/Vol] 172 mg/dL High [address] Comment on above: Performed By: #### P OCGL #### [facility] [address] [place] [address] Glucose [Mass/Vol] 248 mg/dL High [address] [facility] Comment on above: Performed By: #### A ALINE SOLIS, ICAL, EGFR1, BMPX #### [facility] [address] [place] [address] GLUCOSE POCon 09-28-2023 Glucose [Mass/Vol] 200 mg/dL [address] Comment on above: Performed By: #### A WILL, CBCWD, ICAL, EGFR1, BMPX #### [facility] [address] [place] [address] Glucose [Mass/Vol] 226 mg/dL High [address] [place] [address] Comment on above: Performed By: #### A WILL, ALINE, ICAL, EGFR1, BMPX #### [facility] [address] [place] [address] Glucose [Mass/Vol] 230 mg/dL [address] Comment on above: Performed By: #### A ALINE SOLIS, ICAL, EGFR1, BMPX #### [facility] [address] [address] Glucose [Mass/Vol] 204 mg/dL High [address] [place] [address] Comment on above: Performed By: #### A ALINE SOLIS, ICAL, EGFR1, BMPX #### [address] [address] ANION GAPon 09-27-2023 Anion gap [Moles/Vol] 9.0 mmol/L Normal 8.0-16.0 [facility] Comment on above: Result Comment: ANIO N GAP = Sodium -(Chloride + CO2) Performed By: #### A ALINE SOLIS, ICAL, EGFR1, BMPX #### [facility] [address] [address] BASIC METABOL PANELon 2022 Calcium [Mass/Vol] 8.5 mg/dL Normal 8.5-10.5 [facility] Comment on above: Performed By: #### A WILL CBCWD, ICAL, EGFR1, BMPX #### [address] [address] Chloride [Moles/Vol] 102 mmol/L Normal 98-111 [facility] Comment on above: Performed By: #### A WILL, BRIANNEWD, ICAL, EGFR1, BMPX #### [facility] [address] [place] [address] CO2 [Moles/Vol] 25 mmol/L Normal 23-33 [facility] Comment on above: Performed By: #### A WILL, CBCWD, ICAL, EGFR1, BMPX #### [facility] [address] [place] [address] Creatinine [Mass/Vol] 0.7 mg/dL Normal 0.4-1.2 [facility] Comment on above: Performed By: #### A WILL CBCWD, ICAL, EGFR1, BMPX #### [facility] [address] [place] [address] Glucose [Mass/Vol] 232 mg/dL High 70-108 [facility] Comment on above: Performed By: #### A WILL CBCTUAN, ICAL, EGFR1, BMPX #### [address] [address] POTASSIUM WITH REFLEX MG 4.1 meq/L Normal 3.5-5.2 [facility] Comment on above: Performed By: #### A WILL, CBCWD, ICAL, EGFR1, BMPX #### [address] [address] Sodium [Moles/Vol] 136 mmol/L Normal 135-145 [facility] Comment on above: Performed By: #### A WILL CBCWD, ICAL, EGFR1, BMPX #### [facility] [address] [place] [address] Urea nitrogen [Mass/Vol] 27 mg/dL High 7-22 [facility] Comment on above: Performed By: #### A WILL, CBCWD, ICAL, EGFR1, BMPX #### [facility] [address] [place] [address] CBC WITH DIFFERENTIALon 11-0 6-3 ABS BASOPHILS 0.0 thou/mm3 Normal 0.0-0.1 [facility] Comment on above: Performed By: #### A ALINE SOLIS, ICAL, EGFR1, BMPX #### [address] [address] ABS EOSINOPHILS 0.0 thou/mm3 Normal 0.0-0.4 [facility] Comment on above: Performed By: #### A WILL CBCTUAN, ICAL, EGFR1, BMPX #### [address] [address] ABS IMMATURE GRANS (IG) 0.08 thou/mm3 High 0.00-0.07 [facility] Comment on above: Performed By: #### A ALINE SOLIS, ICAL, EGFR1, BMPX #### [address] [address] ABS LYMPHOCYTES 0.7 thou/mm3 Low 1.0-4.8 [facility] Comment on above: Performed By: #### A WILL CBCTUAN, ICAL, EGFR1, BMPX #### [address] [address] ABS MONOCYTES 0.5 thou/mm3 Normal 0.4-1.3 [facility] Comment on above: Performed By: #### A WILL CBCTUAN, ICAL, EGFR1, BMPX #### [address] [address] ABS NEUTROPHILS 9.6 thou/mm3 High 1.8-7.7 [facility] Comment on above: Performed By: #### A WILL CBCTUAN, ICAL, EGFR1, BMPX #### [address] [address] Basophils/100 WBC (Bld) 0.1 % Normal [facility] Comment on above: Performed By: #### A WILL, CBCWD, ICAL, EGFR1, BMPX #### [address] [address] Eosinophils/100 WBC (Bld) 0.0 % Normal [facility] Comment on above: Performed By: #### A WILL CBCWD, ICAL, EGFR1, BMPX #### [place] [address] Erythrocyte distribution width (RBC) [Ratio] 13.2 % Normal 11.5-14.5 [facility] Comment on above: Performed By: #### A WILL, CBCWD, ICAL, EGFR1, BMPX #### [address] [address] Hematocrit (Bld) [Volume fraction] 24.4 % Low 37.0-47.0 [facility] Comment on above: Performed By: #### A WILL, CBCWD, ICAL, EGFR1, BMPX #### [place] [address] Hemoglobin (Bld) [Mass/Vol] 7.7 g/dL Low 12.0-16.0 [facility] Comment on above: Performed By: #### A WILL, CBCTUAN, ICAL, EGFR1, BMPX #### [place] [address] IMMATURE GRANS (IG) 0.7 % Normal [facility] Comment on above: Performed By: #### A WILL, CBCTUAN, ICAL, EGFR1, BMPX #### [place] [address] Lymphocytes/100 WBC (Bld) 6.4 % Normal [facility] Comment on above: Performed By: #### A WILL, CBCWD, ICAL, EGFR1, BMPX #### [place] [address] MCH (RBC) [Entitic mass] 32.9 pg Normal 26.0-33.0 [facility] Comment on above: Performed By: #### A WILL, CBCWD, ICAL, EGFR1, BMPX #### [place] [id number] MCHC (RBC) [Mass/Vol] 31.6 g/dL Low 32.2-35.5 [facility] Comment on above: Performed By: #### A WILL, CBCWD, ICAL, EGFR1, BMPX #### [address] [place] [address] MCV (RBC) [Entitic vol] 104.3 fL High 81.0-99.0 [facility] Comment on above: Performed By: #### A WILL, ALINE, ICAL, EGFR1, BMPX #### [facility] [address] [place] [address] Monocytes/100 WBC (Bld) 4.4 % Normal [facility] Comment on above: Performed By: #### A WILL, CBCWD, ICAL, EGFR1, BMPX #### [facility] [address] [place] [address] Neutrophils/100 WBC (Bld) 88.4 % Normal [facility] Comment on above: Performed By: #### A WILL CBCTUAN, ICAL, EGFR1, BMPX #### [facility] [employer] [facility] [address] [place] [address] NRBC 0 /100 wbc Normal [facility] Comment on above: Performed By: #### A ALINE SOLIS, ICAL, EGFR1, BMPX #### [facility] [employer] [address] [address] PLATELET 183 thou/mm3 Normal 130-400 [facility] Comment on above: Performed By: #### A ALINE SOLIS, ICAL, EGFR1, BMPX #### [facility] [employer] [address] [address] Platelet mean volume (Bld) [Entitic vol] 10.5 fL Normal 9.4-12.4 [facility] Comment on above: Performed By: #### A WILL, CBCWD, ICAL, EGFR1, BMPX #### [facility] [employer] [facility] [address] [place] [address] RBC 2.34 mill/mm3 Low 4.20-5.40 [facility] Comment on above: Performed By: #### A WILL, CBCWD, ICAL, EGFR1, BMPX #### [facility] [address] [place] [address] RDW-SD 49.1 fL High 35.0-45.0 [facility] Comment on above: Performed By: #### A ALINE SOLIS, ICAL, EGFR1, BMPX #### [facility] [address] [place] [address] WBC 10.9 thou/mm3 High 4.8-10.8 [facility] Comment on above: Performed By: #### A ALINE SOLIS, ICAL, EGFR1, BMPX #### [address] [address] GFR, ESTIMATEDon 09-27-2023 GFR/1.73 sq M.predicted MDRD (S/P/Bld) [Vol rate/Area] mL/min/{1.73_m2} Normal >60 [facility] Comment on above: Result Comment: Seth [...] A ALINE SOLIS, ICAL, EGFR1, BMPX #### [employer] [address] [address] GLUCOSE POCon 09-27-2023 Glucose [Mass/Vol] 280 mg/dL High 70-108 [facility] Comment on above: Performed By: #### P OCGL #### [facility] [employer] [address] [place] [address] Glucose [Mass/Vol] 285 mg/dL High 70-108 [facility] Comment on above: Performed By: #### A ALINE SOLIS, ICAL, EGFR1, BMPX #### [facility] [address] [place] [address] Glucose [Mass/Vol] 328 mg/dL High 70-108 [facility] Comment on above: Performed By: #### A ALINE SOLIS, ICAL, EGFR1, BMPX #### [facility] [address] [place] [address] Glucose [Mass/Vol] 237 mg/dL High 70-108 [facility] Comment on above: Performed By: #### A ALINE SOLIS, ICAL, EGFR1, BMPX #### [facility] [address] [place] [address] ANION GAPon 09-26-2023 Anion gap [Moles/Vol] 14.0 mmol/L Normal 8.0-16.[address] [facility] Comment on above: Result Comment: ANIO N GAP = Sodium -(Chloride + CO2) Performed By: #### A ALINE SOLIS, ICAL, EGFR1, BMPX #### [facility] [address] [place] [address] BASIC METABOL PANELon 2022 Calcium [Mass/Vol] 9.0 mg/dL Normal 8.5-10.5 [facility] Comment on above: Performed By: #### A ALINE SOLIS, ICAL, EGFR1, BMPX #### [facility] [address] [place] [address] Chloride [Moles/Vol] 100 mmol/L Normal 98-111 [facility] Comment on above: Performed By: #### A ALINE SOLIS, ICAL, EGFR1, BMPX #### [facility] [employer] [facility] [address] [place] [address] CO2 [Moles/Vol] 22 mmol/L Low 23-33 [facility] Comment on above: Performed By: #### A ALINE SOLIS, ICAL, EGFR1, BMPX #### [facility] [address] [place] [address] Creatinine [Mass/Vol] 1.0 mg/dL Normal 0.4-1.2 [facility] Comment on above: Performed By: #### A WILL, CBCWD, ICAL, EGFR1, BMPX #### [facility] [address] [place] [address] Glucose [Mass/Vol] 258 mg/dL High 70-108 [facility] Comment on above: Performed By: #### A BRIANNE SOLISWD, ICAL, EGFR1, BMPX #### [address] [address] POTASSIUM WITH REFLEX MG 4.1 meq/L Normal 3.5-5.2 [facility] Comment on above: Performed By: #### A ALINE SOLIS, ICAL, EGFR1, BMPX #### [address] [address] Sodium [Moles/Vol] 136 mmol/L Normal 135-145 [facility] Comment on above: Performed By: #### A WILL, ALINE, ICAL, EGFR1, BMPX #### [address] [address] Urea nitrogen [Mass/Vol] 28 mg/dL High 7-22 [facility] Comment on above: Performed By: #### A ALINE SOLIS, ICAL, EGFR1, BMPX #### [place] [address] CALCIUM (IONIZED) * WBon CALCIUM (IONIZED) * WB 1.21 mmol/L Normal 1.12-1.32 [facility] Comment on above: Performed By: #### A ALINE SOLIS, ICAL, EGFR1, BMPX #### [address] [address] CBC WITH DIFFERENTIALon ABS BASOPHILS 0.0 thou/mm3 Normal 0.0-0.1 [facility] Comment on above: Performed By: #### A WILL CBCTUAN, ICAL, EGFR1, BMPX #### [address] [address] ABS EOSINOPHILS 0.0 thou/mm3 Normal 0.0-0.4 [facility] Comment on above: Performed By: #### A WILL, CBCWD, ICAL, EGFR1, BMPX #### [address] [address] [address] ABS IMMATURE GRANS (IG) 0.04 thou/mm3 Normal 0.00-0.07 [facility] Comment on above: Performed By: #### A WILL, CBCWD, ICAL, EGFR1, BMPX #### [facility] [address] [place] [address] ABS LYMPHOCYTES 0.6 thou/mm3 Low 1.0-4.8 [facility] Comment on above: Performed By: #### A WILL, CBCWD, ICAL, EGFR1, BMPX #### [facility] [address] [place] [address] ABS MONOCYTES 0.4 thou/mm3 Normal 0.4-1.3 [facility] Comment on above: Performed By: #### A WILL, CBCWD, ICAL, EGFR1, BMPX #### [address] [address] ABS NEUTROPHILS 11.4 thou/mm3 High 1.8-7.7 [facility] Comment on above: Performed By: #### A WILL, CBCWD, ICAL, EGFR1, BMPX #### [address] [address] Basophils/100 WBC (Bld) 0.1 % Normal [facility] Comment on above: Performed By: #### A WILL, CBCWD, ICAL, EGFR1, BMPX #### [address] [address] Eosinophils/100 WBC (Bld) 0.0 % Normal [facility] Comment on above: Performed By: #### A WILL CBCWD, ICAL, EGFR1, BMPX #### [address] [address] Erythrocyte distribution width (RBC) [Ratio] 13.2 % Normal 11.5-14.5 [facility] Comment on above: Performed By: #### A WILL, CBCWD, ICAL, EGFR1, BMPX #### [address] [address] Hematocrit (Bld) [Volume fraction] 27.8 % Low 37.0-47.0 [facility] Comment on above: Performed By: #### A NIRANJIT, CBCWD, ICAL, EGFR1, BMPX #### [address] [address] Hemoglobin (Bld) [Mass/Vol] 8.8 g/dL Low 12.0-16.0 [facility] Comment on above: Performed By: #### A ALINE SOLIS, ICAL, EGFR1, BMPX #### [facility] [address] [place] [address] IMMATURE GRANS (IG) 0.3 % Normal [facility] Comment on above: Performed By: #### A WILL CBCTUAN, ICAL, EGFR1, BMPX #### [facility] [address] [place] [address] Lymphocytes/100 WBC (Bld) 4.7 % Normal [facility] Comment on above: Performed By: #### A ALINE SOLIS, ICAL, EGFR1, BMPX #### [address] [address] MCH (RBC) [Entitic mass] 32.4 pg Normal 26.0-33.0 [facility] Comment on above: Performed By: #### A ALINE SOLIS, ICAL, EGFR1, BMPX #### [facility] [address] [place] [address] MCHC (RBC) [Mass/Vol] 31.7 g/dL Low 32.2-35.5 [facility] Comment on above: Performed By: #### A ALINE SOLIS, ICAL, EGFR1, BMPX #### [address] [address] MCV (RBC) [Entitic vol] 102.2 fL High 81.0-99.0 [facility] Comment on above: Performed By: #### A WILL CBCWD, ICAL, EGFR1, BMPX #### [address] [address] Monocytes/100 WBC (Bld) 3.1 % Normal [facility] Comment on above: Performed By: #### A WILL CBCWD, ICAL, EGFR1, BMPX #### [address] [address] Neutrophils/100 WBC (Bld) 91.8 % Normal [facility] Comment on above: Performed By: #### A ALINE SOLIS, ICAL, EGFR1, BMPX #### [facility] [employer] [facility] [employer] [address] [place] [address] NRBC 0 /100 wbc Normal [facility] Comment on above: Performed By: #### A ALINE SOLIS, ICAL, EGFR1, BMPX #### [facility] [employer] [place] [address] PLATELET 230 thou/mm3 Normal 130-400 [facility] Comment on above: Performed By: #### A ALINE SOLIS, ICAL, EGFR1, BMPX #### [facility] [employer] [address] [place] [address] Platelet mean volume (Bld) [Entitic vol] 10.4 fL Normal 9.4-12.4 [facility] Comment on above: Performed By: #### A ALINE SOLIS, ICAL, EGFR1, BMPX #### [facility] [place] [address] RBC 2.72 mill/mm3 Low 4.20-5.40 [facility] Comment on above: Performed By: #### A ALINE SOLIS, ICAL, EGFR1, BMPX #### [place] [address] RDW-SD 49.3 fL High 35.0-45.0 [facility] Comment on above: Performed By: #### A WILL CBCTUAN, ICAL, EGFR1, BMPX #### [employer] [address] [place] [address] WBC 12.4 thou/mm3 High 4.8-10.8 [facility] Comment on above: Performed By: #### A WILL CBCWD, ICAL, EGFR1, BMPX #### [facility] [employer] [address] [place] [address] GFR, ESTIMATEDon 09-26-2023 GFR/1.73 sq M.predicted MDRD (S/P/Bld) [Vol rate/Area] 57 mL/min/{1.73_m2} Abnormal >60 [facility] Comment on above: Result Comment: Seth [...] A ALINE SOLIS, ICAL, EGFR1, BMPX #### [facility] [employer] [address] [place] [address] GLUCOSE POCon 09-26-2023 Glucose [Mass/Vol] 287 mg/dL High 70-108 [facility] Comment on above: Performed By: #### A ALINE SOLIS, ICAL, EGFR1, BMPX #### [employer] [facility] [employer] [address] [place] [address] Glucose [Mass/Vol] 329 mg/dL High 70-108 [facility] Comment on above: Performed By: #### A ALINE SOLIS, ICAL, EGFR1, BMPX #### [employer] [facility] [employer] [address] [place] [address] ANION GAPon 09-25-2023 Anion gap [Moles/Vol] 14.0 mmol/L Normal 8.0-16.[address] [facility] Comment on above: Result Comment: ANIO N GAP = Sodium -(Chloride + CO2) Performed By: #### A ALINE SOLIS, ICAL, EGFR1, BMPX #### [employer] [facility] [employer] [address] [place] [address] BASIC METABOL PANELon 2022 Calcium [Mass/Vol] 8.2 mg/dL Low 8.5-10.5 [facility] Comment on above: Performed By: #### A ALINE SOLIS, ICAL, EGFR1, BMPX #### [facility] [employer] [address] [place] [address] Chloride [Moles/Vol] 97 mmol/L Low 98-111 [facility] Comment on above: Performed By: #### A ALINE SOLIS, ICAL, EGFR1, BMPX #### [employer] [facility] [address] [place] [address] CO2 [Moles/Vol] 24 mmol/L Normal 23-33 [facility] Comment on above: Performed By: #### A ALINE SOLIS, ICAL, EGFR1, BMPX #### [facility] [address] [place] [address] Creatinine [Mass/Vol] 0.9 mg/dL Normal 0.4-1.2 [facility] Comment on above: Performed By: #### A ALINE SOLIS, ICAL, EGFR1, BMPX #### [address] [address] Glucose [Mass/Vol] 112 mg/dL High 70-108 [facility] Comment on above: Performed By: #### A ALINE SOLIS, ICAL, EGFR1, BMPX #### [address] [address] POTASSIUM WITH REFLEX MG 4.0 meq/L Normal 3.5-5.2 [facility] Comment on above: Result Comment: Low level specimen hemolysis is present as indicated by the interference level index on the Peggy analyzer. The reported K+ level may be falsely increased. If clinically warranted, recollection of the specimen is suggested. Performed By: #### A ALINE SOLIS, ICAL, EGFR1, BMPX #### [facility] [address] [address] Sodium [Moles/Vol] 135 mmol/L Normal 135-145 [facility] Comment on above: Performed By: #### A ALINE SOLIS, ICAL, EGFR1, BMPX #### [employer] [facility] [address] [place] [address] Urea nitrogen [Mass/Vol] 24 mg/dL High 7-22 [facility] Comment on above: Performed By: #### A WILL, CBCWD, ICAL, EGFR1, BMPX #### [address] [address] CBC WITH DIFFERENTIALon 11-0 4-2023 ABS BASOPHILS 0.0 thou/mm3 Normal 0.0-0.1 [facility] Comment on above: Performed By: #### C ISAMAR, REJCT #### [facility] [address] [place] [address] ABS EOSINOPHILS 0.0 thou/mm3 Normal 0.0-0.4 [facility] Comment on above: Performed By: #### C ISAMAR, REJCT #### [facility] [address] [place] [address] ABS IMMATURE GRANS (IG) 0.02 thou/mm3 Normal 0.00-0.07 [facility] Comment on above: Performed By: #### C ISAMAR, REJCT #### [address] [address] ABS LYMPHOCYTES 0.9 thou/mm3 Low 1.0-4.8 [facility] Comment on above: Performed By: #### C ISAMAR, REJCT #### [facility] [address] [place] [address] ABS MONOCYTES 0.5 thou/mm3 Normal 0.4-1.3 [facility] Comment on above: Performed By: #### C ISAMAR, REJCT #### [address] [address] ABS NEUTROPHILS 4.9 thou/mm3 Normal 1.8-7.7 [facility] Comment on above: Performed By: #### C ISAMAR, REJCT #### [facility] [address] [place] [address] Basophils/100 WBC (Bld) 0.2 % Normal [facility] Comment on above: Performed By: #### C ISAMAR, REJCT #### [facility] [address] [place] [address] Eosinophils/100 WBC (Bld) 0.0 % Normal [facility] Comment on above: Performed By: #### C ISAMAR, REJCT #### [address] [address] Erythrocyte distribution width (RBC) [Ratio] 13.3 % Normal 11.5-14.5 [facility] Comment on above: Performed By: #### C ISAMAR, REJCT #### [address] [address] Hematocrit (Bld) [Volume fraction] 29.0 % Low 37.0-47.0 [facility] Comment on above: Performed By: #### C ISAMAR, REJCT #### [address] [address] Hemoglobin (Bld) [Mass/Vol] 9.9 g/dL Low 12.0-16.0 [facility] Comment on above: Performed By: #### C ISAMAR, REJCT #### [address] [address] IMMATURE GRANS (IG) 0.3 % Normal [facility] Comment on above: Performed By: #### C ISAMAR, REJCT #### [address] [address] Lymphocytes/100 WBC (Bld) 13.8 % Normal [facility] Comment on above: Performed By: #### C ISAMAR, REJCT #### [address] [address] MCH (RBC) [Entitic mass] 32.8 pg Normal 26.0-33.0 [facility] Comment on above: Performed By: #### C ISAMAR, REJCT #### [address] [address] MCHC (RBC) [Mass/Vol] 34.1 g/dL Normal 32.2-35.5 [facility] Comment on above: Performed By: #### C ISAMAR, REJCT #### [address] [address] MCV (RBC) [Entitic vol] 96.0 fL Normal 81.0-99.0 [facility] Comment on above: Performed By: #### C ISAMAR, REJCT #### [address] [address] Monocytes/100 WBC (Bld) 8.7 % Normal [facility] Comment on above: Performed By: #### C ISAMAR, REJCT #### [facility] [employer] [address] [address] Neutrophils/100 WBC (Bld) 77.0 % Normal [facility] Comment on above: Performed By: #### C ISAMAR, REJCT #### [address] [address] NRBC 0 /100 wbc Normal [facility] Comment on above: Performed By: #### C ISAMAR, REJCT #### [facility] [employer] [address] [address] PLATELET 185 thou/mm3 Normal 130-400 [facility] Comment on above: Performed By: #### C ISAMAR, REJCT #### [address] [address] Platelet mean volume (Bld) [Entitic vol] 10.8 fL Normal 9.4-12.4 [facility] Comment on above: Performed By: #### C ISAMAR, REJCT #### [facility] [employer] [address] [address] RBC 3.02 mill/mm3 Low 4.20-5.40 [facility] Comment on above: Performed By: #### C ISAMAR, REJCT #### [address] [address] RDW-SD 46.2 fL High 35.0-45.0 [facility] Comment on above: Performed By: #### C ISAMAR, REJCT #### [employer] [address] [address] WBC 6.3 thou/mm3 Normal 4.8-10.8 [facility] Comment on above: Performed By: #### C ISAMAR, REJCT #### [facility] [address] [place] [address] EKG 12-LEADon 09-25-2023 EKG 12-LEAD [phone] Atrial fibrillation with rapid ventricular response with premature ventricular or aberrantly conducted complexes Septal infarct , age undetermined ST & T wave abnormality, consider inferior ischemia Abnormal ECG No previous ECGs available Confirmed by JOHNIE HACKETT ([id number]) on 09/25/2023 7:28:02 AM [email or web address] [id number]&Date=03-02-20 23&Time=[id number] &TestType=ECG&Site=3&Outp utType=PDF&Ext=PDF Normal [facility] FLUORO FOR SURGICAL PROCEDUR ESon 09-25-2023 FLUORO FOR SURGICAL PROCEDURES Radiology exam is complete. No Radiologist dictation. Please follow up with ordering provider. Normal [facility] GFR, ESTIMATEDon 09-25-2023 GFR/1.73 sq M.predicted MDRD (S/P/Bld) [Vol rate/Area] mL/min/{1.73_m2} Normal >60 [facility] Comment on above: Result Comment: Pedi [...] A NION, CBCWD, ICAL, EGFR1, BMPX #### [facility] [address] [place] [address] REJECTION NOTIFICATIONon REJECTION: REASON see below Normal [facility] Comment on above: Result Comment: Unab le to perform testing;Specimen was Hemolyzed Performed By: #### C BCWD, REJCT #### [facility] [address] [place] [address] REJECTION: TEST chems Normal [facility] Comment on above: Performed By: #### C BCWD, REJCT #### [facility] [address] [place] [address] Office Visiton 09-14-2023 Follow-up visit [id number] Briseyda Fair 1945 F Date Provider Department Center 09/14/2023 [facility] Family History Problem Relation Age of Onset Heart attack Father Stroke Father Family Status - Relation Status Age at Father Level of Service:65582 SD OFFICE/OUTPATIENT [facility] 60-74 MINUTES Normal [facility] .eGFRon 07-12-2023 Estimated GFR 52 mL/min/1.73m? Low >=60 [facility] Comment on above: Result Comment: [facility] have implemented the eGFR calculation [...] years Performed By: #### E GFR #### [facility] [address] [place] [address] ABO/Rhon 07-12-2023 ABO/Rh [place] 08/02/23 ABO/Rh: A POS Normal [facility] Comment on above: Performed By: #### A BORH #### [facility] (DEFAULT) [address] [place] [address] [facility] [address] [place] [address] ABSC Autoon 07-12-2023 ABSC Auto Negative Normal [facility] Comment on above: Performed By: #### A SA #### [address] [address] CBC w/ Diffon 07-12-2023 Erythrocyte distribution width (RBC) [Ratio] 12.8 % Normal 11.6-14.8 [facility] Comment on above: Performed By: #### C BC #### [address] [address] Hematocrit (Bld) [Volume fraction] 40.7 % Normal 36.0-46.0 [facility] Comment on above: Performed By: #### C BC #### [address] [address] Hemoglobin (Bld) [Mass/Vol] 14.1 g/dL Normal 12.0-16.0 [facility] Comment on above: Performed By: #### C BC #### [address] [address] MCH (RBC) [Entitic mass] 34.6 pg Normal 27.0-35.0 [facility] Comment on above: Performed By: #### C BC #### [address] [address] MCHC 34.6 % Normal 31.0-37.0 [facility] Comment on above: Performed By: #### C BC #### [address] [address] MCV (RBC) [Entitic vol] 100.0 fL Normal 80.0-100.0 [facility] Comment on above: Performed By: #### C BC #### [address] [address] Platelet 215 x10*3/mcL Normal 150-450 [facility] Comment on above: Performed By: #### C BC #### [address] [address] Platelet mean volume (Bld) [Entitic vol] 8.4 fL Normal 6.7-10.6 [facility] Comment on above: Performed By: #### C BC #### [address] [place] [address] RBC 4.07 x10*6/mcL Normal 3.80-5.20 [facility] Comment on above: Performed By: #### C BC #### [address] [place] [address] WBC 6.1 x10*3/mcL Normal 4.5-11.0 [facility] Comment on above: Performed By: #### C BC #### [address] [address] CMPon 07-12-2023 Albumin [Mass/Vol] 4.1 g/dL Normal 3.2-4.9 [facility] Comment on above: Performed By: #### C OMP #### [address] [address] Albumin/Globulin [Mass ratio] 1.3 {ratio} Normal 1.1-2.2 [facility] Comment on above: Performed By: #### C OMP #### [address] [place] [address] Alk Phos 37 IU/L Normal 32-91 [facility] Comment on above: Performed By: #### C OMP #### [address] [place] [address] ALT [Catalytic activity/Vol] 17 U/L Normal 14-54 [facility] Comment on above: Performed By: #### C OMP #### [address] [place] [address] Anion gap [Moles/Vol] 8 mmol/L Normal 7-17 [facility] Comment on above: Performed By: #### C OMP #### [address] [address] AST [Catalytic activity/Vol] 23 U/L Normal 15-41 [facility] Comment on above: Performed By: #### C OMP #### [address] [address] Bili Total 0.7 mg/dL Normal 0.3-1.2 [facility] Comment on above: Performed By: #### C OMP #### [address] [address] Calcium [Mass/Vol] 9.6 mg/dL Normal 8.5-10.3 [facility] Comment on above: Performed By: #### C OMP #### [address] [address] Chloride [Moles/Vol] 102 mmol/L Normal 98-110 [facility] [place] Comment on above: Performed By: #### C OMP #### [address] [address] CO2 [Moles/Vol] 31 mmol/L Normal 22-32 [facility] Comment on above: Performed By: #### C OMP #### [address] [address] Creatinine [Mass/Vol] 1.09 mg/dL High 0.44-1.03 [facility] Comment on above: Performed By: #### C OMP #### [address] [place] [address] Glucose [Mass/Vol] 154 mg/dL High 70-99 [facility] Comment on above: Performed By: #### C OMP #### [address] [place] [address] Potassium [Moles/Vol] 3.4 mmol/L Normal 3.4-4.8 [facility] Comment on above: Performed By: #### C OMP #### [address] [place] [address] Protein [Mass/Vol] 7.3 g/dL Normal 6.5-8.1 [facility] Comment on above: Performed By: #### C OMP #### [address] [place] [address] Sodium [Moles/Vol] 138 mmol/L Normal 133-142 [facility] Comment on above: Performed By: #### C OMP #### [address] [place] [address] Urea nitrogen [Mass/Vol] 22 mg/dL Normal 8-26 [facility] Comment on above: Performed By: #### C OMP #### [address] [address] Urea nitrogen/Creatinine [Mass ratio] 20.2 mg/mg High 10.0-20.0 [facility] Comment on above: Performed By: #### C OMP #### [address] [address] Diff Autoon 07-12-2023 Baso Absolute 0.0 x10*3/mcL Normal 0.0-0.2 [facility] Comment on above: Performed By: #### . Automated Diff #### [address] [address] Basophils/100 WBC (Bld) 0.6 % Normal 0.0-1.5 [facility] Comment on above: Performed By: #### . Automated Diff #### [address] [address] Eos Absolute 0.1 x10*3/mcL Normal 0.0-0.4 [facility] Comment on above: Performed By: #### . Automated Diff #### [address] [address] Eosinophils/100 WBC (Bld) 2.3 % Normal 0.0-5.4 [facility] Comment on above: Performed By: #### . Automated Diff #### [address] [address] Lymph Absolute 1.3 x10*3/mcL Normal 1.0-4.8 [facility] Comment on above: Performed By: #### . Automated Diff #### [address] [address] Lymphocytes/100 WBC (Bld) 21.0 % Low 27.2-40.8 [facility] Comment on above: Performed By: #### . Automated Diff #### [address] [address] [place]y Absolute 0.6 x10*3/mcL Normal 0.1-1.1 [facility] Comment on above: Performed By: #### . Automated Diff #### [address] [address] Monocytes/100 WBC (Bld) 9.5 % Normal 3.7-11.9 [facility] Comment on above: Performed By: #### . Automated Diff #### [address] [address] Neutro Absolute 4.0 x10*3/mcL Normal 1.8-7.7 [facility] Comment on above: Performed By: #### . Automated Diff #### [place] [id number] Neutro Auto 66.6 % Normal 47.2-70.8 [facility] Comment on above: Performed By: #### . Automated Diff #### [address] [address] HbA1c w/Rflx Fructosamineon 07-12-2023 Glucose [Mass/Vol] 148 mg/dL High 68-114 [facility] Comment on above: Result Comment: Math ematical Calc approx. The mean gluc equivalency of A1c Performed By: #### C [id number] #### [address] [address] Hgb A1c 6.8 % A1c High 4.0-5.6 [facility] Comment on above: Result Comment: Refe rence Range: 4.0 - 5.6 % Normal 5.7 - 6.4 % Pre-Diabetes > 6.5 % Diabetes Performed By: #### C [id number] #### [address] [address] T3, TOTAL (TRIIODOTHYRONINE) on 02-11-2023 T3, TOTAL 87 ng/dL Normal 71-180 [facility] Comment on above: Performed By: #### B MP, LIPID, TSH, ALT #### [facility] [address] [place], [place] [address] Dr. Bj Jason T3, TOTAL (TRIIODOTHYRONINE) on 02-10-2023 T3, TOTAL (TRIIODOTHYRONINE) 87 ng/dL 71-180 ng/dL [employer] [place] Other T3, TOTAL (TRIIODOTHYRONINE) see note [employer] [place] Other Alanine Aminotransferaseon 0 02-08-2023 ALT [Catalytic activity/Vol] 24 U/L Normal 14-59 [employer] [place] Other Comment on above: Performed By: #### B MP, LIPID, TSH, ALT #### [facility] [address] [place] [address] [address] Bj Jason Alanine Aminotransferase see note [employer] [place] Other CBC AUTO DIFFon 02-08-2023 BASO # 0.0 103/ul Normal 0.0-0.1 [facility] Comment on above: Performed By: #### B MP, LIPID, TSH, ALT #### [facility] [address] [place] [address] [address] Bj Jason Basophils/100 WBC (Bld) 0.3 % Normal 0.2-2.0 [facility] Comment on above: Performed By: #### B MP, LIPID, TSH, ALT #### [facility] [address] [place] [address] [address] Bj Jason EO # 0.1 103/ul Normal 0.0-0.7 [facility] Comment on above: Performed By: #### B MP, LIPID, TSH, ALT #### [facility] [address] [place] [address] [address] Bj Jason Eosinophils/100 WBC (Bld) 0.6 % Critically low 0.9-7.0 [facility] Comment on above: Performed By: #### B MP, LIPID, TSH, ALT #### [facility] [address] [place] [address] [address] Bj Jason Erythrocyte distribution width (RBC) [Ratio] 14.3 % Normal 11.0-15.0 [facility] Comment on above: Performed By: #### B MP, LIPID, TSH, ALT #### [facility] [address] [place] [address] Dr. Bj Jason Hematocrit (Bld) [Volume fraction] 43.3 % Normal 36.0-48.0 [facility] Comment on above: Performed By: #### B MP, LIPID, TSH, ALT #### [facility] [address] [place] [address] Dr. Bj Jason Hemoglobin (Bld) [Mass/Vol] 14.2 g/dL Normal 12.0-16.0 [facility] Comment on above: Performed By: #### B MP, LIPID, TSH, ALT #### [facility] [address] [place] [address] Dr. Bj Jason IG # 0.04 10e3/ul Critically high 0.00-0.03 [facility] Comment on above: Performed By: #### B MP, LIPID, TSH, ALT #### [facility] [address] [place] [address] Dr. Bj Jason IG % 0.3 % Normal 0.0-0.5 [facility] Comment on above: Performed By: #### B MP, LIPID, TSH, ALT #### [facility] [address] [place] [address] Dr. Bj Jason LYMPH # 1.7 103/ul Normal 1.2-3.8 [facility] Comment on above: Performed By: #### B MP, LIPID, TSH, ALT #### [facility] [address] [place] [address] Dr. Bj Jason Lymphocytes/100 WBC (Bld) 15.0 % Critically low 20.5-60.0 [facility] Comment on above: Performed By: #### B MP, LIPID, TSH, ALT #### [facility] [address] [place] [address] Dr. Bj Jason MANUAL DIFF REQ NO Normal [facility] Comment on above: Performed By: #### B MP, LIPID, TSH, ALT #### [facility] [address] [place] [address] Dr. Bj Jason MCH (RBC) [Entitic mass] 32.1 pg Normal 26.7-34.0 [facility] Comment on above: Performed By: #### B MP, LIPID, TSH, ALT #### [facility] [address] [address] [address] Bj Jason MCHC (RBC) [Mass/Vol] 32.8 g/dL Normal 29.9-35.2 [facility] Comment on above: Performed By: #### B MP, LIPID, TSH, ALT #### [facility] [address] [place] [address] Dr. Bj Jason MCV (RBC) [Entitic vol] 98.0 fL Normal 81.0-99.0 [facility] Comment on above: Performed By: #### B MP, LIPID, TSH, ALT #### [facility] [address] [place] [address] Dr. Bj Jason MONO # 1.0 103/ul Critically high 0.3-0.8 [facility] Comment on above: Performed By: #### B MP, LIPID, TSH, ALT #### [facility] [address] [place] [address] Dr. Bj Jason Monocytes/100 WBC (Bld) 8.8 % Normal 1.7-12.0 [facility] Comment on above: Performed By: #### B MP, LIPID, TSH, ALT #### [facility] [address] [place] [address] Dr. Bj Jason NEUT # 8.6 103/ul Critically high 1.4-6.5 [facility] Comment on above: Performed By: #### B MP, LIPID, TSH, ALT #### [facility] [address] [address] [address] Bj Jason Neutrophils/100 WBC (Bld) 75.0 % Normal 43.0-75.0 [facility] Comment on above: Performed By: #### B MP, LIPID, TSH, ALT #### [facility] [address] [place] [address] Dr. Bj Jason Platelet mean volume (Bld) [Entitic vol] 9.4 fL Critically low 9.5-13.5 [facility] Comment on above: Performed By: #### B MP, LIPID, TSH, ALT #### [facility] [address] [address] [address] Bj Jason PLT 216 103/ul Normal 150-450 [facility] Comment on above: Performed By: #### B MP, LIPID, TSH, ALT #### [facility] [address] [address] [address] Bj Jason RBC 4.42 106/ul Normal 4.20-5.40 [facility] Comment on above: Performed By: #### B MP, LIPID, TSH, ALT #### [facility] [address] [place] [address] Dr. Bj Jason WBC 11.5 103/ul Critically high 4.0-11.0 [facility] Comment on above: Performed By: #### B MP, LIPID, TSH, ALT #### [facility] [address] [place] [address] Dr. Bj Jason FREE T4on 02-08-2023 Free T4 [Mass/Vol] 0.88 ng/dL Normal 0.76-1.46 [facility] Comment on above: Performed By: #### F T4 #### [facility] [address] [place] [address] Dr. Bj Jason Free T4 (Free Thyroxine)on 0 02-08-2023 Free T4 (Free Thyroxine) [employer] [place] Other GLYCOHEMOGLOBIN A1Con 2022 ADA RECOMMENDATION SEE BELOW Normal [facility] Comment on above: Result Comment: ADA RECOMMENDED LIMIT 4.0 - 6.0 ADA THERAPEUTIC TARGET < 7.0 ACTION SUGGESTED > 7.0 Performed By: #### B MP, LIPID, TSH, ALT #### [facility] [address] [place] [address] Dr. Bj Jason Glucose [Mass/Vol] 146 mg/dL Normal [facility] Comment on above: Performed By: #### B MP, LIPID, TSH, ALT #### [facility] [address] [place] [address] Dr. Bj Jason HbA1c (Bld) [Mass fraction] 6.7 % Critically high 4.5-6.2 [facility] Comment on above: Performed By: #### B MP, LIPID, TSH, ALT #### [facility] [address] [address] [address] Bj Jason LIPID PROFILEon 02-08-2023 CHOL-HDL RATIO NORM SEE BELOW Normal [facility] Comment on above: Result Comment: 3.3 - 4.4 LOW RISK 4.4 - 7.1 AVERAGE RISK 7.1 - 11.0 MODERATE RISK >11.0 HIGH RISK Performed By: #### B MP, LIPID, TSH, ALT #### [facility] [address] [place] [address] Dr. Bj Jason Cholesterol [Mass/Vol] 155 mg/dL Normal <=200 [facility] Comment on above: Performed By: #### B MP, LIPID, TSH, ALT #### [facility] [address] [place] [address] Dr. Bj Jason Cholesterol in HDL [Mass/Vol] 49 mg/dL Normal 40-60 [facility] Comment on above: Performed By: #### B MP, LIPID, TSH, ALT #### [facility] [address] [place] [address] Dr. Bj Jason Cholesterol in LDL [Mass/Vol] 79.0 mg/dL Normal [facility] Comment on above: Performed By: #### B MP, LIPID, TSH, ALT #### [facility] [address] [address] [address] Bj Jason Cholesterol.total/Chol esterol in HDL [Mass ratio] 3.2 {ratio} Normal [facility] Comment on above: Performed By: #### B MP, LIPID, TSH, ALT #### [facility] [address] [place] [address] Dr. Bj Jason HDL NORMAL > or = 60 mg/dl - LO W CARDIOVASCULAR RISK <40 mg/dl - HIGH CARDIOVASCULAR RISK Normal [facility] Comment on above: Performed By: #### B MP, LIPID, TSH, ALT #### [facility] [address] [address] [address] Bj Jason LDL CALC NORMAL SEE BELOW Normal [facility] Comment on above: Result Comment: <100 mg/dl OPTIMAL 100 - 129 mg/dl NEAR OR ABOVE OPTIMAL 130 - 159 mg/dl BORDERLINE HIGH 160 - 189 mg/dl HIGH >190 mg/dl VERY HIGH Performed By: #### B MP, LIPID, TSH, ALT #### [facility] [address] [address] [address] Bj Jason Triglyceride [Mass/Vol] 135 mg/dL Normal <=150 [facility] Comment on above: Performed By: #### B MP, LIPID, TSH, ALT #### [facility] [address] [address] [address] Bj Jason VLDL CALC 27.0 mg/dL Normal [facility] Comment on above: Performed By: #### B MP, LIPID, TSH, ALT #### [facility] [address] [place] [address] Dr. Bj Jason MICROALBUMIN, RAND URon 03-2 mALB <1.3 Normal <=30.0 [facility] Comment on above: Performed By: #### M ALBR #### [facility] [address] [place] [address] Dr. Bj Jason PROF CHEM 8 (BAS METB)on Anion gap [Moles/Vol] 10.8 mmol/L Normal [facility] Comment on above: Performed By: #### B MP, LIPID, TSH, ALT #### [facility] [address] [place] [address] Dr. Bj Jason Calcium [Mass/Vol] 9.6 mg/dL Normal 8.5-10.1 [facility] Comment on above: Performed By: #### B MP, LIPID, TSH, ALT #### [facility] [address] [place] [address] Dr. Bj Jason Chloride [Moles/Vol] 101 mmol/L Normal 98-107 [facility] Comment on above: Performed By: #### B MP, LIPID, TSH, ALT #### [facility] [address] [address] [address] Bj Jason CO2 [Moles/Vol] 31.8 mmol/L Normal 21.0-32.0 [facility] Comment on above: Performed By: #### B MP, LIPID, TSH, ALT #### [facility] [address] [address] [address] Bj Jason Creatinine [Mass/Vol] 1.20 mg/dL Critically high 0.55-1.02 [facility] Comment on above: Performed By: #### B MP, LIPID, TSH, ALT #### [facility] [address] [address] [address] Bj Jason EGFR-AF GUYANESE 53 mL/min/1.73m2 Critically low >=60 [facility] Comment on above: Performed By: #### B MP, LIPID, TSH, ALT #### [facility] [address] [place] [address] Dr. Bj Jason EGFR-NON AF GUYANESE 43 mL/min/1.73m2 Critically low >=60 [facility] Comment on above: Performed By: #### B MP, LIPID, TSH, ALT #### [facility] [address] [address] [address] Bj Jason Glucose [Mass/Vol] 124 mg/dL Critically high 74-106 [facility] Comment on above: Performed By: #### B MP, LIPID, TSH, ALT #### [facility] [address] [address] [address] Bj Jason Potassium [Moles/Vol] 3.6 mmol/L Normal 3.5-5.1 [facility] Comment on above: Performed By: #### B MP, LIPID, TSH, ALT #### [facility] [address] [address] [address] Bj Jason Sodium [Moles/Vol] 140 mmol/L Normal 136-145 [facility] Comment on above: Performed By: #### B MP, LIPID, TSH, ALT #### [facility] [address] [address] [address] Bj Jason Urea nitrogen [Mass/Vol] 27.0 mg/dL Critically high 7.0-18.0 [facility] Comment on above: Performed By: #### B MP, LIPID, TSH, ALT #### [facility] [address] [address] [address] Bj Jason Urea nitrogen/Creatinine [Mass ratio] 22.5 mg/mg Normal [facility] Comment on above: Performed By: #### B MP, LIPID, TSH, ALT #### [facility] [id number] Bj Jason TSHon 02-08-2023 TSH 0.018 uIU/mL Critically low 0.358-3.74 0 [facility] Comment on above: Performed By: #### B MP, LIPID, TSH, ALT #### [facility] [address] [address] [address] Bj Jason XR HIP RT 2 [...] JENELLE ACEVES Date: 2023-01-26 17:37 Normal [facility] XR HIP RT 2 3V W PELVIS [employer] [place] Other MG MAMM SCREEN 3D LILLIAN CADon 01-08-2023 MG MAMM SCREEN 3D LILLIAN CAD Patient: FATUMA FAIR Exam Date: 01/08/2023 : 1945 Gender:F Ordering : DR HARSHA ANDREW D.O. Admission #: [id number] Family : DR JUN MARTÍNEZ . Order #: [id number] CLICK HERE TO VIEW EXAM RADIOLOGY REPORT [...] breast cancer at age 60. LOCATION: [facility] BREAST COMPOSITION: Heterogeneously dense,which may obscure small [...] LUMP SHOULD BE BIOPSIED. Dictated by: Ching Mahmood M.D. on 01/12/2023 at 14:40 Approved by: Ching Mahmood M.D. on 01/12/2023 at 14:52 Normal [facility] CALCIUMon 12-11-2022 Calcium [Mass/Vol] 9.5 mg/dL Normal 8.5-10.1 [facility] Comment on above: Performed By: #### B MP, LIPID, TSH, ALT #### [facility] [address] [address] [address] Bj Jason CREATININEon 12-11-2022 Creatinine [Mass/Vol] 1.06 mg/dL Critically high 0.55-1.02 [facility] Comment on above: Performed By: #### B MP, LIPID, TSH, ALT #### [facility] [address] [address] [address] Bj Jason EGFR-AF GUYANESE >60 Normal >=60 [facility] Comment on above: Performed By: #### B MP, LIPID, TSH, ALT #### [facility] [address] [address] [address] Bj Jason EGFR-NON AF GUYANESE 50 mL/min/1.73m2 Critically low >=60 [facility] Comment on above: Performed By: #### B MP, LIPID, TSH, ALT #### [facility] [address] [address] [address] Bj Jason GLYCOHEMOGLOBIN A1Con 2021 ADA RECOMMENDATION SEE BELOW Normal [facility] Comment on above: Result Comment: ADA RECOMMENDED LIMIT 4.0 - 6.0 ADA THERAPEUTIC TARGET < 7.0 ACTION SUGGESTED > 7.0 Performed By: #### B MP, LIPID, TSH, ALT #### [facility] [address] [place] [address] Dr. Bj Jason Glucose [Mass/Vol] 160 mg/dL Normal [facility] Comment on above: Performed By: #### B MP, LIPID, TSH, ALT #### [facility] [address] [place] [address] Dr. Bj Jason HbA1c (Bld) [Mass fraction] 7.2 % Critically high 4.5-6.2 [facility] Comment on above: Performed By: #### B MP, LIPID, TSH, ALT #### [facility] [address] [place] [address] Dr. Bj Jason TSHon 09-30-2022 TSH 1.819 uIU/mL Normal 0.358-3.74 0 [facility] Comment on above: Performed By: #### T SH #### [facility] [address] [place] [address] Dr. Bj Jason CALCIUMon 08-07-2022 Calcium [Mass/Vol] 9.2 mg/dL Normal 8.5-10.1 [facility] Comment on above: Performed By: #### B MP, LIPID, TSH, ALT #### [facility] [address] [place] [address] Dr. Bj Jason CREATININEon 08-07-2022 Creatinine [Mass/Vol] 1.12 mg/dL Critically high 0.55-1.02 [facility] Comment on above: Performed By: #### B MP, LIPID, TSH, ALT #### [facility] [address] [address] [address] Bj Jason EGFR-AF GUYANESE 57 mL/min/1.73m2 Critically low >=60 [facility] Comment on above: Performed By: #### B MP, LIPID, TSH, ALT #### [facility] [address] [address] [address] Bj Jason EGFR-NON AF GUYANESE 47 mL/min/1.73m2 Critically low >=60 [facility] Comment on above: Performed By: #### B MP, LIPID, TSH, ALT #### [facility] [address] [address] [address] Bj Jason GLYCOHEMOGLOBIN A1Con 2021 ADA RECOMMENDATION SEE BELOW Normal [facility] Comment on above: Result Comment: ADA RECOMMENDED LIMIT 4.0 - 6.0 ADA THERAPEUTIC TARGET < 7.0 ACTION SUGGESTED > 7.0 Performed By: #### A 1C #### [facility] [address] [place] [address] Dr. Bj Jason Glucose [Mass/Vol] 146 mg/dL Normal [facility] Comment on above: Performed By: #### A 1C #### [facility] [address] [address] [address] Bj Jason HbA1c (Bld) [Mass fraction] 6.7 % Critically high 4.5-6.2 [facility] Comment on above: Performed By: #### A 1C #### [facility] [address] [place] [address] Dr. Bj Jason ECHOCARDIO M/2D COMPLETEon 0 05-12-2022 ECHOCARDIO M/2D COMPLETE Patient: FATUMA FAIR Exam Date: 05/12/2022 : 1945 Gender:F Ordering : DR HARSHA ANDREW D.O. Admission #: [id number] Family : Order #: [id number] CLICK HERE TO VIEW EXAM ECHOCARDIOGRAM REPORT [...] Area(A4C): 19.80 cm2 Left Atrium Systolic Volume(A2C): 36308 mm3 Left Atrium Systolic Volume(A4C): 54425 mm3 Mitral Valve MV E to A Ratio: 0.80 Deceleration [place]: 3840 mm/s2 Mitral Valve A-Wave Peak Velocity: 121.00 cm/s Mitral Valve E-Wave Peak Velocity: 91.80 cm/s Right Ventricle RV Internal Diastolic Dimension: 2.95 cm Aorta AO Root Diam: 3.00 cm Aortic Valve AoV Area (Peak [place]): 2.18 cm2 Deceleration [place]: 1410 mm/s2 Pressure Half-Time: 736 ms Peak [...] Light M.D. on 05/13/2022 at 19:26 Normal [facility] XR TSPINE 2 VIEWSon 05-05-20 XR TSPINE 2 VIEWS EXAMINATION: XR TSPI NE 2 VIEWS HISTORY: Pain in thoracic spine [...] degenerative disc disease. Electronically authenticated by: CHING MAHMOOD Date: 2022-05-05 13:09 Normal [facility] XR CHEST 2 Von 05-04-2022 XR CHEST [...] SAMARA FELTON Date: 2022-05-04 14:58 Normal [facility] XR LSPINE 2_3 VIEWSon 2021 XR LSPINE [...] KEERTHI RAMIREZ Date: 2022-05-04 21:52 Normal [facility] CBC AUTO DIFFon 04-29-2022 BASO # 0.1 103/ul Normal 0.0-0.1 [facility] Comment on above: Performed By: #### C BC #### [facility] [address] [place] [address] Dr. Bj Jason Basophils/100 WBC (Bld) 0.9 % Normal 0.2-2.0 [facility] Comment on above: Performed By: #### C BC #### [facility] [address] [place] [address] Dr. Bj Jason EO # 0.2 103/ul Normal 0.0-0.7 [facility] Comment on above: Performed By: #### C BC #### [facility] [address] [place] [address] Dr. Bj Jason Eosinophils/100 WBC (Bld) 2.4 % Normal 0.9-7.0 [facility] Comment on above: Performed By: #### C BC #### [facility] [address] [place] [address] Dr. jB Jason Erythrocyte distribution width (RBC) [Ratio] 12.7 % Normal 11.0-15.0 [facility] Comment on above: Performed By: #### C BC #### [facility] [address] [place] [address] Dr. Bj Jason Hematocrit (Bld) [Volume fraction] 41.7 % Normal 36.0-48.0 [facility] Comment on above: Performed By: #### C BC #### [facility] [address] [place] [address] Dr. Bj Jason Hemoglobin (Bld) [Mass/Vol] 14.0 g/dL Normal 12.0-16.0 [facility] Comment on above: Performed By: #### C BC #### [facility] [address] [place] [address] Dr. Bj Jason IG # 0.02 10e3/ul Normal 0.00-0.03 [facility] Comment on above: Performed By: #### C BC #### [facility] [address] [place] [address] Dr. Bj Jason IG % 0.3 % Normal 0.0-0.5 [facility] Comment on above: Performed By: #### C BC #### [facility] [address] [place] [address] Dr. jB Jason LYMPH # 1.6 103/ul Normal 1.2-3.8 [facility] Comment on above: Performed By: #### C BC #### [facility] [address] [place] [address] Dr. Bj Jason Lymphocytes/100 WBC (Bld) 20.6 % Normal 20.5-60.0 [facility] Comment on above: Performed By: #### C BC #### [facility] [address] [place] [address] Dr. Bj Jason MANUAL DIFF REQ NO Normal [facility] Comment on above: Performed By: #### C BC #### [facility] [address] [place] [address] Dr. Bj Jason MCH (RBC) [Entitic mass] 31.3 pg Normal 26.7-34.0 [facility] Comment on above: Performed By: #### C BC #### [facility] [address] [place] [address] Dr. Bj Jason MCHC (RBC) [Mass/Vol] 33.6 g/dL Normal 29.9-35.2 [facility] Comment on above: Performed By: #### C BC #### [facility] [address] [address] [address] Bj Jason MCV (RBC) [Entitic vol] 93.3 fL Normal 81.0-99.0 [facility] Comment on above: Performed By: #### C BC #### [facility] [address] [address] [address] Bj Jason MONO # 0.7 103/ul Normal 0.3-0.8 [facility] Comment on above: Performed By: #### C BC #### [facility] [address] [address] [address] Bj Jason Monocytes/100 WBC (Bld) 9.3 % Normal 1.7-12.0 [facility] Comment on above: Performed By: #### C BC #### [facility] [address] [place] [address] Dr. Bj Jason NEUT # 5.2 103/ul Normal 1.4-6.5 [facility] Comment on above: Performed By: #### C BC #### [facility] [address] [place] [address] Dr. Bj Jason Neutrophils/100 WBC (Bld) 66.5 % Normal 43.0-75.0 [facility] Comment on above: Performed By: #### C BC #### [facility] [address] [address] [address] Bj Jason Platelet mean volume (Bld) [Entitic vol] 10.9 fL Normal 9.5-13.5 [facility] Comment on above: Performed By: #### C BC #### [facility] [address] [address] [address] Bj Jason PLT 223 103/ul Normal 150-450 [facility] Comment on above: Performed By: #### C BC #### [facility] [address] [address] [address] Bj Jason RBC 4.47 106/ul Normal 4.20-5.40 [facility] Comment on above: Performed By: #### C BC #### [facility] [address] [place] [address] Dr. Bj Jason WBC 7.9 103/ul Normal 4.0-11.0 [facility] Comment on above: Performed By: #### C BC #### [facility] [address] [place] [address] Dr. Bj Jason PROF CHEM 8 (BAS METB)on Anion gap [Moles/Vol] 12.0 mmol/L Normal [facility] Comment on above: Performed By: #### B MP, LIPID, TSH, ALT #### [facility] [address] [place] [address] Dr. Bj Jason Calcium [Mass/Vol] 9.5 mg/dL Normal 8.5-10.1 [facility] Comment on above: Performed By: #### B MP, LIPID, TSH, ALT #### [facility] [address] [place] [address] Dr. Bj Jason Chloride [Moles/Vol] 101 mmol/L Normal 98-107 [facility] Comment on above: Performed By: #### B MP, LIPID, TSH, ALT #### [facility] [address] [place] [address] Dr. Bj Jason CO2 [Moles/Vol] 29.9 mmol/L Normal 21.0-32.0 [facility] Comment on above: Performed By: #### B MP, LIPID, TSH, ALT #### [facility] [address] [place] [address] Dr. Bj Jason Creatinine [Mass/Vol] 1.12 mg/dL Critically high 0.55-1.02 [facility] Comment on above: Performed By: #### B MP, LIPID, TSH, ALT #### [facility] [address] [place] [address] Dr. Bj Jason EGFR-AF GUYANESE 57 mL/min/1.73m2 Critically low >=60 [facility] Comment on above: Performed By: #### B MP, LIPID, TSH, ALT #### [facility] [address] [place] [address] Dr. Bj Jason EGFR-NON AF GUYANESE 47 mL/min/1.73m2 Critically low >=60 [facility] Comment on above: Performed By: #### B MP, LIPID, TSH, ALT #### [facility] [address] [address] [address] Bj Jason Glucose [Mass/Vol] 106 mg/dL Normal 74-106 [facility] Comment on above: Performed By: #### B MP, LIPID, TSH, ALT #### [facility] [address] [address] [address] Bj Jason Potassium [Moles/Vol] 3.9 mmol/L Normal 3.5-5.1 [facility] Comment on above: Performed By: #### B MP, LIPID, TSH, ALT #### [facility] [address] [address] [address] Bj Jason Sodium [Moles/Vol] 139 mmol/L Normal 136-145 [facility] Comment on above: Performed By: #### B MP, LIPID, TSH, ALT #### [facility] [address] [address] [address] Bj Jason Urea nitrogen [Mass/Vol] 25.0 mg/dL Critically high 7.0-18.0 [facility] Comment on above: Performed By: #### B MP, LIPID, TSH, ALT #### [facility] [address] [place] [address] Dr. Bj Jason Urea nitrogen/Creatinine [Mass ratio] 22.3 mg/mg Normal [facility] Comment on above: Performed By: #### B MP, LIPID, TSH, ALT #### [facility] [address] [address] [address] Bj Jason TSHon 04-29-2022 TSH 2.953 uIU/mL Normal 0.358-3.74 0 [facility] Comment on above: Performed By: #### B MP, LIPID, TSH, ALT #### [facility] [address] [place] [address] Dr. Bj Jason TSH RANGE SEE BELOW Normal [facility] Comment on above: Result Comment: <0.3 4 UIU/ml HYPERTHYROID 0.34-5.60 UIU/ml EUTHYROID >5.60 UIU/ml HYPOTHYROID Performed By: #### B MP, LIPID, TSH, ALT #### [facility] [address] [address] [address] Bj Jason GLYCOHEMOGLOBIN A1Con 2021 ADA RECOMMENDATION ADA THERAPEUTIC TARG ET 6.0 - 7.0 ACTION SUGGESTED > 7.0 Normal [facility] Comment on above: Performed By: #### B MP, LIPID, TSH, ALT #### [facility] [address] [address] [address] Bj Jason Glucose [Mass/Vol] 148 mg/dL Normal [facility] Comment on above: Performed By: #### B MP, LIPID, TSH, ALT #### [facility] [address] [address] [address] Bj Jason HbA1c (Bld) [Mass fraction] 6.8 % Critically high <=6.0 [facility] Comment on above: Performed By: #### B MP, LIPID, TSH, ALT #### [facility] [address] [address] [address] Bj Jason MICROALBUMIN, RAND URon 02-20 mALB <1.3 Normal <=30.0 [facility] Comment on above: Performed By: #### M ALBR #### [facility] [address] [address] [address] Bj Jason Vital Signs Date Time Vital Sign Value Performing Clinician Facility 07-06-2025 14:16 Body height 162.56 cm [employer] DO Work Phone: [facility] 07-06-2025 14: Body mass index (BMI) [Ratio] 22.5 kg/m2 [employer] DO Work Phone: [facility] 07-06-2025 14:16 Body weight 59.47 kg [employer] DO Work Phone: [facility] 07-06-2025 14:160400 Diastolic blood pressure 65 mm[Hg] Harsha Ball DO Work Phone: [facility] 07-06-2025 14:16-0400 Heart rate 75 /min Harsha Ball DO Work Phone: [facility] 07-06-2025 14:16-0400 Respiratory rate 12 /min Harsha Ball DO Work Phone: [facility] 07-06-2025 14:16-0400 Systolic blood pressure 167 mm[Hg] Harsha Ball DO Work Phone: [facility] 05-04-2025 11:35-0400 Body height 162.56 cm Harsha Ball DO Work Phone: [facility] 05-04-2025 11:35-0400 Body mass index (BMI) [Ratio] 22.3 kg/m2 Harsha Ball DO Work Phone: [facility] 05-04-2025 11:35-0400 Body weight 59.02 kg Harsha Ball DO Work Phone: [facility] 05-04-2025 11:35-0400 Diastolic blood pressure 76 mm[Hg] Harsha Ball DO Work Phone: [facility] 05-04-2025 11:35-0400 Heart rate 73 /min Harsha Ball DO Work Phone: [facility] 05-04-2025 11:35-0400 Respiratory rate 12 /min Harsha Ball DO Work Phone: [facility] 05-04-2025 11:35-0400 SaO2% (BldA) [Mass fraction] 97 % Harsha Ball DO Work Phone: [facility] 05-04-2025 11:35-0400 Systolic blood pressure 165 mm[Hg] Harsha Ball DO Work Phone: [facility] 03-21-2025 12:54-0400 Body weight 59.2 kg Harsha Ball DO Work Phone: [facility] 03-21-2025 12:54-0400 Diastolic blood pressure 60 mm[Hg] Harsha Ball DO Work Phone: [facility] 03-21-2025 12:54-0400 Systolic blood pressure 128 mm[Hg] Harsha Ball DO Work Phone: [facility] 02-19-2025 13:42-0400 Body height 162.56 cm Harsha Ball DO Work Phone: [facility] 02-19-2025 13:42-0400 Body mass index (BMI) [Ratio] 24.6 kg/m2 Harsha Ball DO Work Phone: [facility] 02-19-2025 13:42-0400 Body weight 65.2 kg Harsha Ball DO Work Phone: [facility] 02-02-2025 11:26-0400 Diastolic blood pressure 79 mm[Hg] Harsha Ball DO Work Phone: [facility] 02-02-2025 11:26-0400 Heart rate 73 /min Harsha Ball DO Work Phone: [facility] 02-02-2025 11:26-0400 Respiratory rate 16 /min Harsha Ball DO Work Phone: [facility] 02-02-2025 11:26-0400 SaO2% (BldA) [Mass fraction] 95 % Harsha Ball DO Work Phone: [facility] 02-02-2025 11:26-0400 Systolic blood pressure 145 mm[Hg] Harsha Ball DO Work Phone: [facility] 02-02-2025 06:00-0400 Body weight 65.2 kg Harsha Ball DO Work Phone: [facility] 02-02-2025 03:58-0400 Body temperature 97.6 [degF] Harsha Ball DO Work Phone: [facility] 02-01-2025 13:00-0400 Inhaled oxygen flow rate 6 L/min Harsha Ball DO Work Phone: [facility] 01-29-2025 20:00-0400 Body temperature 98.2 [degF] Harsha Ball DO Work Phone: [facility] 01-29-2025 20:00-0400 Diastolic blood pressure 71 mm[Hg] Harsha Ball DO Work Phone: [facility] 01-29-2025 20:00-0400 Heart rate 69 /min Harsha Ball DO Work Phone: [facility] 01-29-2025 20:00-0400 Respiratory rate 16 /min Harsha Ball DO Work Phone: [facility] 01-29-2025 20:00-0400 SaO2% (BldA) [Mass fraction] 96 % Harsha Ball DO Work Phone: [facility] 01-29-2025 20:00-0400 Systolic blood pressure 168 mm[Hg] Harsha Ball DO Work Phone: [facility] 01-29-2025 01:04-0400 Body height 162.56 cm Harsha Ball DO Work Phone: [facility] 01-29-2025 01:04-0400 Body weight 62.7 kg Harsha Ball DO Work Phone: [facility] 01-03-2025 14:28-0500 Body height 162.56 cm [facility] 01-03-2025 14:28-0500 Body mass index (BMI) [Ratio] 25.2 kg/m2 [facility] 01-03-2025 14:28-0500 Body weight 66.76 kg [facility] 01-03-2025 14:28-0500 Diastolic blood pressure 72 mm[Hg] [facility] 01-03-2025 14:28-0500 Heart rate 74 /min [facility] 01-03-2025 14:28-0500 SaO2% (BldA) [Mass fraction] 99 % [facility] 01-03-2025 14:28-0500 Systolic blood pressure 174 mm[Hg] [facility] 10-16-2024 14:18-0500 Body height 162.56 cm [facility] 10-16-2024 14:18-0500 Body mass index (BMI) [Ratio] 26.3 kg/m2 [facility] 10-16-2024 14:18-0500 Body weight 69.51 kg [facility] 10-16-2024 14:18-0500 Diastolic blood pressure 62 mm[Hg] [facility] 10-16-2024 14:18-0500 Heart rate 62 /min [facility] 10-16-2024 14:18-0500 Respiratory rate 12 /min [facility] 10-16-2024 14:18-0500 Systolic blood pressure 132 mm[Hg] [facility] 07-18-2024 14:01-0400 Body height 162.56 cm [facility] 07-18-2024 14:01-0400 Body mass index (BMI) [Ratio] 26.9 kg/m2 [facility] 07-18-2024 14:01-0400 Body weight 71.21 kg [facility] 07-18-2024 14:01-0400 Diastolic blood pressure 68 mm[Hg] [facility] 07-18-2024 14:01-0400 Heart rate 73 /min [facility] 07-18-2024 14:01-0400 Respiratory rate 12 /min [facility] 07-18-2024 14:01-0400 Systolic blood pressure 112 mm[Hg] [facility] 05-16-2024 15:05-0400 Body temperature 98.2 [degF] Tutu Unger DPM Work Phone: [facility] 05-16-2024 15:05-0400 Diastolic blood pressure 60 mm[Hg] Tutu Hightowerbitz DPM Work Phone: [facility] 05-16-2024 15:05-0400 Heart rate 61 /min Tutu Unger DPM Work Phone: [facility] 05-16-2024 15:05-0400 Systolic blood pressure 133 mm[Hg] Tutu Unger DPM Work Phone: [facility] 04-13-2024 11:08-0400 Body height 162.56 cm [facility] 04-13-2024 11:08-0400 Body mass index (BMI) [Ratio] 27.6 kg/m2 [facility] 04-13-2024 11:08-0400 Body weight 73.08 kg [facility] 04-13-2024 11:08-0400 Diastolic blood pressure 76 mm[Hg] [facility] 04-13-2024 11:08-0400 Heart rate 72 /min [facility] 04-13-2024 11:08-0400 Respiratory rate 12 /min [facility] 04-13-2024 11:08-0400 Systolic blood pressure 118 mm[Hg] [facility] 02-14-2024 13:54-0400 Body height 162.56 cm [facility] 02-14-2024 13:54-0400 Body mass index (BMI) [Ratio] 27.9 kg/m2 [facility] 02-14-2024 13:54-0400 Body weight 73.93 kg [facility] 02-14-2024 13:54-0400 Diastolic blood pressure 82 mm[Hg] [facility] 02-14-2024 13:54-0400 Heart rate 65 /min [facility] 02-14-2024 13:54-0400 Respiratory rate 12 /min [facility] 02-14-2024 13:54-0400 Systolic blood pressure 132 mm[Hg] [facility] 11-25-2023 09:30-0500 Body height 162.56 cm Harsha Ball Other [facility] 11-25-2023 09:30-0500 Body mass index (BMI) [Ratio] 26.57 kg/m2 Harsha Ball Other [employer] Other 11-25-2023 09:30-0500 Body weight 70.22 kg Harsha Ball Other [employer] Other 11-25-2023 09:30-0500 Body weight 70.21 kg [facility] 11-25-2023 09:30-0500 Diastolic blood pressure 71 mm[Hg] Harsha Ball Other [facility] 11-25-2023 09:30-0500 Respiratory rate 12 /min Harsha Ball Other [facility] [employer] Other 11-25-2023 09:30-0500 Systolic blood pressure 129 mm[Hg] Harsha Ball Other [facility] 07-19-2023 10:00-0400 Body height 162.56 cm Harsha Ball Other [facility] [employer] Other 07-19-2023 10:00-0400 Body mass index (BMI) [Ratio] 27.36 kg/m2 Harhsa Ball Other [facility] [employer] Other 07-19-2023 10:00-0400 Body weight 72.3 kg Harsha Ball Other [facility] [employer] Other 07-19-2023 10:00-0400 Diastolic blood pressure 82 mm[Hg] Harsha Ball Other [facility] [employer] Other 07-19-2023 10:00-0400 Respiratory rate 12 /min Harsha Ball Other [employer] Other 07-19-2023 10:00-0400 Systolic blood pressure 118 mm[Hg] Harsha Ball Other [employer] Other 05-11-2023 14:30-0400 Body height 162.56 cm Harsha Ball Other [employer] [place] Other 05-11-2023 14:30-0400 Body mass index (BMI) [Ratio] 27.46 kg/m2 Harsha Ball Other [employer] [place] Other 05-11-2023 14:30-0400 Body weight 72.58 kg Harsha Ball Other [employer] Other 05-11-2023 14:30-0400 Diastolic blood pressure 76 mm[Hg] Harsha Ball Other [employer] Other 05-11-2023 14:30-0400 Respiratory rate 12 /min Harsha Ball Other [employer] Other 05-11-2023 14:30-0400 Systolic blood pressure 118 mm[Hg] Harsha Ball Other [employer] Other 04-20-2023 11:00-0400 Body height 162.56 cm Harsha Ball Other [employer] Other 04-20-2023 11:00-0400 Body mass index (BMI) [Ratio] 27.36 kg/m2 Harsha Ball Other [employer] Other 04-20-2023 11:00-0400 Body weight 72.3 kg Harsha Ball Other [employer] Other 04-20-2023 11:00-0400 Diastolic blood pressure 70 mm[Hg] Harsha Ball Other [employer] Other 04-20-2023 11:00-0400 Respiratory rate 12 /min Harsha Ball Other [employer] Other 04-20-2023 11:00-0400 Systolic blood pressure 112 mm[Hg] Harsha Ball Other [employer] Other 02-08-2023 15:00-0400 Body height 162.56 cm Harsha Ball Other [employer] Other 02-08-2023 15:00-0400 Body mass index (BMI) [Ratio] 27.25 kg/m2 Harsha Ball Other [employer] Other 02-08-2023 15:00-0400 Body weight 72.03 kg Harsha Ball Other [employer] Other 02-08-2023 15:00-0400 Diastolic blood pressure 82 mm[Hg] Harsha Ball Other [employer] Other 02-08-2023 15:00-0400 Respiratory rate 12 /min Harsha Ball Other [employer] Other 02-08-2023 15:00-0400 Systolic blood pressure 118 mm[Hg] Harsha Ball Other [employer] Other 01-26-2023 13:15-0500 Body height 162.56 cm Harsha Ball Other [employer] Other 01-26-2023 13:15-0500 Diastolic blood pressure 70 mm[Hg] Harsha Ball Other [employer] Other 01-26-2023 13:15-0500 Respiratory rate 12 /min Harsha Ball Other [employer] Other 01-26-2023 13:15-0500 Systolic blood pressure 112 mm[Hg] Harsha Ball Other [employer] Other 12-16-2022 15:30-0500 Body height 162.56 cm Harsha Ball Other [employer] Other 12-16-2022 15:30-0500 Body mass index (BMI) [Ratio] 27.84 kg/m2 Harsha Ball Other [employer] Other 12-16-2022 15:30-0500 Body temperature 97.5 [degF] Harsha Andrew Other [employer] Other 12-16-2022 15:30-0500 Body weight 73.57 kg Harsha Andrew Other [employer] Other 12-16-2022 15:30-0500 SaO2% (BldA) [Mass fraction] 98 % Harsha Andrew Other [employer] Other Encounters Encounter Date Encounter Type Care Provider Facility Start: 07-06-2025 End: 07-06-2025 ambulatory Harsha Andrew DO Work Phone: [facility] Work Phone: Start: 07-06-2025 End: 07-06-2025 Patient encounter procedure Harsha Andrew DO -[facility] Work Phone: Start: 06-15-2025 End: 06-15-2025 ambulatory Harsha Andrew DO Work Phone: [facility] Work Phone: Start: 06-15-2025 End: 06-15-2025 Patient encounter procedure Harsha Andrew DO -[facility] Work Phone: Start: 05-07-2025 End: 05-07-2025 ambulatory Harsha Andrew Facility:[facility] Start: 05-07-2025 Non-patient / Non-visit Harsha colbert DO -[employer] Work Phone: Start: 05-04-2025 End: 05-04-2025 Patient encounter procedure Harsha Andrew DO -[facility] Work Phone: Start: 04-26-2025 Non-patient / Non-visit Harsha colbert DO -[facility] Work Phone: Start: 04-12-2025 Non-patient / Non-visit Harsha colbert DO -[facility] Work Phone: Start: 03-22-2025 Non-patient / Non-visit Harsha Moore l DO -[facility] Work Phone: Start: 03-21-2025 End: 03-21-2025 ambulatory Harsha Ball DO Work Phone: [facility] Work Phone: Start: 03-21-2025 End: 03-21-2025 Patient encounter procedure Harsha Ball DO Work Phone: [facility] Work Phone: Start: 02-19-2025 End: 02-19-2025 ambulatory Harsha Ball DO Work Phone: [facility] Work Phone: Start: 02-19-2025 End: 02-19-2025 Patient encounter procedure Harsha Ball DO Work Phone: [facility] Neuro[facility] Work Phone: Start: 02-08-2025 Non-patient / Non-visit Benjam in Ball DO Work Phone: [facility] Work Phone: Start: 01-30-2025 ambulatory HARSHA ANDREW [facility] Start: 01-29-2025 Non-patient / Non-visit Benjam in Ball DO Work Phone: [facility] Neurosurgery Work Phone: Start: 01-29-2025 End: 02-02-2025 Evaluation and management of inpatient Harsha Ball DO Work Phone: [facility] Work Phone: Start: 01-28-2025 End: 01-28-2025 ambulatory Harsha Ball DO Work Phone: [facility] Work Phone: Start: 01-28-2025 End: 01-28-2025 Departed Referred Harsha Ball DO Work Phone: [facility] Start: 01-28-2025 Non-patient / Non-visit Mitch in Kamran DO Work Phone: [facility] Work Phone: Start: 01-22-2025 End: 01-24-2025 ambulatory RICHARD DAY [facility] Start: 01-22-2025 End: 01-24-2025 Subsequent hospital visit by physician Flores [address] Dr Room 4 [facility] Radiology Comment on above: Leg length discrepan cy Start: 01-03-2025 End: 01-03-2025 ambulatory [facility] Work Phone: Start: 01-03-2025 End: 01-03-2025 Patient encounter procedure [facility] Work Phone: Start: 10-16-2024 End: 10-16-2024 Patient encounter procedure [facility] Work Phone: Start: 10-10-2024 Non-patient / Non-visit [facility] Work Phone: Start: 09-06-2024 End: 09-06-2024 ambulatory [facility] Work Phone: Start: 09-06-2024 End: 09-06-2024 Patient encounter procedure [facility] Work Phone: Start: 08-15-2024 End: 08-17-2024 ambulatory CHING COHEN [facility] Start: 08-11-2024 End: 08-11-[facility] Start: 07-27-2024 Non-patient / Non-visit [facility] Work Phone: Start: 07-18-2024 End: 07-18-2024 ambulatory [facility] Work Phone: Start: 07-18-2024 End: 07-18-2024 Patient encounter procedure [facility] Work Phone: Start: 07-10-2024 End: 07-10-2024 ambulatory [facility] Work Phone: Start: 07-10-2024 End: 07-10-2024 Patient encounter procedure [facility] Work Phone: Start: 05-30-2024 End: 05-30-2024 ambulatory [facility] Work Phone: Start: 05-30-2024 End: 05-30-2024 Patient encounter procedure [facility] Work Phone: Start: 05-16-2024 End: 05-16-2024 ambulatory TUTU UNGER Not Available Start: 05-16-2024 End: 05-16-2024 Office outpatient new 45 minutes Tutu Unger DPM Work Phone: [facility] Comment on above: Pain of left foot (P rimary Dx); Pain of right foot; Callus; Pes planovalgus; Acquired leg length discrepancy; Tailor's bunion of left foot; Valgus deformity of both great toes; Hammer toes of both feet; Plantar fat pad atrophy; Other secondary osteoarthritis of both feet Start: 04-13-2024 End: 04-13-2024 ambulatory [facility] Work Phone: Start: 04-13-2024 End: 04-13-2024 Patient encounter procedure [facility] Work Phone: Start: 02-25-2024 Non-patient / Non-visit [facility] Work Phone: Start: 02-14-2024 End: 02-14-2024 ambulatory [facility] Work Phone: Start: 02-14-2024 End: 02-14-2024 Patient encounter procedure [facility] Work Phone: Start: 02-01-2024 End: 02-01-2024 ambulatory SANTIAGO SPIVEY [facility] Start: 01-31-2024 Non-patient / Non-visit [facility] Work Phone: Start: 12-21-2023 End: 12-21-2023 ambulatory Harsha Andrew Other [employer] Other Start: 12-21-2023 Telephone encounter Harsha GONZALES [facility] Start: 12-14-2023 End: 12-14-2023 ambulatory Harsha Andrew Other [employer] Other Start: 12-14-2023 Telephone encounter Harsha GONZALES [facility] Start: 11-25-2023 End: 11-25-2023 ambulatory Harsha Andrew Other [employer] Other Start: 11-25-2023 Transitional care aman mahan sr 14 day discharge Harsha Andrew [facility] Start: 11-25-2023 End: 11-25-2023 Patient encounter procedure [facility] Work Phone: Start: 11-23-2023 End: 11-23-2023 ambulatory KARLEE [facility] Start: 11-12-2023 End: 11-12-2023 ambulatory Harsha Andrew Other [employer] Other Start: 11-12-2023 Telephone encounter Harsha GONZALES [facility] Start: 11-11-2023 End: 11-11-2023 ambulatory Harsha Andrew Other [employer] Other Start: 11-11-2023 Nursing facility discharge management 30 minutes Harsha Andrew [facility] Start: 11-11-2023 Telephone encounter Harsha GONZALES [facility] Start: 11-09-2023 End: 11-09-2023 ambulatory Harsha Andrew Other [employer] Other Start: 11-09-2023 Telephone encounter Harsha Ball [facility] Start: 11-01-2023 End: 11-01-2023 ambulatory Harsha Ball Other [employer] Other Start: 11-01-2023 Telephone encounter Harsha Ball [facility] Start: 10-28-2023 End: 10-28-2023 ambulatory Harsha Ball Other [employer] Other Start: 10-28-2023 Sbsq nursing facil care/day new problem 25 min Harsha Ball [facility] Start: 10-28-2023 Telephone encounter Harsha Ball [facility] Start: 10-21-2023 ambulatory [facility] Start: 10-21-2023 End: 10-21-2023 ambulatory [facility] Start: 10-17-2023 End: 10-17-2023 ambulatory Harsha Ball Other [employer] Other Start: 10-17-2023 Telephone encounter Harsha Ball [facility] Start: 10-15-2023 End: 10-15-2023 ambulatory Harsha Ball Other [employer] Other Start: 10-15-2023 Sbsq nursing facil care/day new problem 25 min Harsha Ball [facility] Start: 10-09-2023 End: 10-09-2023 ambulatory Harsha Ball Other [employer] Other Start: 10-09-2023 Telephone encounter Harsha Ball [facility] Start: 10-08-2023 End: 10-08-2023 ambulatory Harsha Ball Other [employer] Other Start: 10-08-2023 Telephone encounter Harsha Ball [facility] Start: 10-07-2023 End: 10-07-2023 ambulatory Harsha Ball Other [employer] Other Start: 10-07-2023 Initial nursing faci lity care/day 45 minutes Harsha Andrew [facility] Start: 10-05-2023 End: 10-05-2023 ambulatory Harsha Andrew Other [employer] Other Start: 10-05-2023 Telephone encounter Harsha Andrew [facility] Start: 10-04-2023 End: 10-04-2023 ambulatory Harsha Andrew Other [employer] Other Start: 10-04-2023 Telephone encounter Harsha Andrew [facility] Start: 09-30-2023 End: 09-30-2023 ambulatory Harsha Andrew Other [employer] Other Start: 09-30-2023 Telephone encounter Harsha Andrew [facility] Start: 09-26-2023 End: 09-26-2023 ambulatory Harsha Andrew Other [employer] Other Start: 09-26-2023 Telephone encounter Harsha Andrew [facility] Start: 09-25-2023 End: 09-30-2023 [facility] Start: 09-22-2023 End: 09-22-2023 ambulatory Harsha Andrew Other [employer] Other Start: 09-22-2023 Telephone encounter Harsha Andrew [facility] Start: 09-14-2023 End: 09-14-2023 ambulatory SANTIAGO [facility] Start: 08-30-2023 End: 08-30-2023 ambulatory Harsha Andrew Other [employer] Other Start: 08-30-2023 Office outpatient vi sit 15 minutes Harsha Andrew [facility] Start: 08-11-2023 End: 08-11-2023 ambulatory Harsha Kamran Other [employer] Other Start: 08-11-2023 Telephone encounter Harsha Andrew [facility] Start: 07-19-2023 End: 07-19-2023 ambulatory Harsha Andrew Other [employer] Other Start: 07-19-2023 Encounter for other preprocedural examination Harsha Ball [facility] Start: 07-19-2023 Office outpatient vi sit 25 minutes Harsha Ball [facility] Start: 07-16-2023 End: 07-16-2023 ambulatory Harsha Kamran Other [employer] Other Start: 07-16-2023 Telephone encounter Harsha Andrew [facility] Start: 07-12-2023 End: 07-13-2023 ambulatory Frank Cannon Facility:[facility] Start: 06-25-2023 End: 06-25-2023 ambulatory Harsha Andrew Other [employer] Other Start: 06-25-2023 Nursing evaluation o f patient and report Harsha Andrew [facility] Start: 06-21-2023 End: 06-21-2023 ambulatory Harsha Kamran Other [employer] Other Start: 06-21-2023 Nursing evaluation o f patient and report Harsha Andrew [facility] Start: 05-17-2023 End: 05-17-2023 ambulatory Harsha Andrew Other [employer] Other Start: 05-17-2023 Telephone encounter Harsha Andrew [facility] Start: 05-11-2023 End: 05-11-2023 ambulatory Harsha Ball Other [employer] Other Start: 05-11-2023 Office outpatient vi sit 25 minutes Harsha Ball [facility] Start: 04-20-2023 End: 04-20-2023 ambulatory Harsha Ball Other [employer] Other Start: 04-20-2023 Office outpatient vi sit 15 minutes Harsha Andrew [facility] Start: 04-14-2023 End: 04-15-[address] MD Facility:[facility] Start: 04-05-2023 End: 04-05-2023 ambulatory Harsha Andrew Other [employer] Other Start: 04-05-2023 Telephone encounter Harsha Andrew [facility] Start: 02-10-2023 End: 02-11-[address] HARSHA ANDREW Facility:[facility] Start: 02-10-2023 Nursing evaluation o f patient and report Harsha Andrew [facility] Start: 02-10-2023 Telephone encounter Harsha Andrew [facility] Start: 02-08-2023 End: 02-09-[address] HARSHA ANDREW [employer] [place] Other Start: 02-08-2023 Patient encounter procedure Harsha Andrew [facility] Start: 02-08-2023 Telephone encounter Harsha Andrew [facility] Start: 02-01-2023 End: 02-01-2023 ambulatory Harsha Andrew Other [employer] [place] Other Start: 02-01-2023 Telephone encounter Harsha Andrew [facility] Start: 01-26-2023 End: 01-27-[address] HARSHA ANDREW [employer] [place] Other Start: 01-26-2023 Office outpatient vi sit 15 minutes Harsha Andrew [facility] Start: 01-26-2023 Telephone encounter Harsha GONZALES [facility] Start: 01-18-2023 End: 01-19-[address] HARSHA ANDREW Facility:[facility] Start: 01-11-2023 End: 01-11-2023 ambulatory Harsha Andrew Other [employer] [place] Other Start: 01-11-2023 Telephone encounter Harsha Andrew [facility] Start: 01-08-2023 End: 01-09-[address] HARSHA ANDREW Facility:[facility] Start: 12-17-2022 End: 12-17-2022 ambulatory Harsha Andrew Other [employer] [place] Other Start: 12-17-2022 Telephone encounter Harsha GONZALES [facility] Start: 12-16-2022 End: 12-16-2022 ambulatory Harsha Andrew Other [employer] [place] Other Start: 12-16-2022 Office outpatient vi sit 25 minutes [facility] Start: 12-11-2022 End: 12-14-[address] JUN MARTÍNEZ . Facility:[facility] Start: 09-30-2022 End: 10-01-[address] HARSHA ANDREW Facility:[facility] Start: 09-15-2022 Gynecological examin ation normal Harsha Andrew Other [employer] [place] Other Start: 08-07-2022 End: 08-07-[address] JUN MARTÍNEZ . Facility:[facility] Start: 07-14-2022 End: 07-15-[address] HARSHA ANDREW Facility:[facility] Start: 05-12-2022 End: 05-13-[address] HARSHA ANDREW Facility:[facility] Start: 05-05-2022 End: 05-06-[address] JUN MARTÍNEZ . Facility:[facility] Start: 05-04-2022 End: 05-05-[address] HARSHA ANDREW Facility:[facility] Start: 04-29-2022 End: 04-30-[address] HARSHA ANDREW Facility:[facility] Start: 03-09-2022 End: 03-10-[address] HARSHA ANDREW Facility:[facility] Start: 02-03-2022 Adult health examination Wadematthieu Andrew Other [employer] [place] Other Procedures Date Procedure Procedure Detail Performing Clinician Start: 02-01-2025 Balloon kyphoplasty of fracture of spine Harsha Kamran DO Work Phone: Start: 01-31-2025 Plain chest X-ray Wade Andrew DO Work Phone: Start: 01-30-2025 X-ray of lumbar spin e, two or three views Harsha Andrew DO Work Phone: Start: 01-29-2025 Urine culture Harsha Andrew DO Work Phone: Start: 01-29-2025 MR lumbar spine wo con Harsha Andrew DO Work Phone: Start: 01-28-2025 Urine culture Harsha Andrew DO Work Phone: Start: 01-22-2025 Bone length studies Lexy Day MD Work Phone: Start: 01-14-2025 Radex foot complete minimum 3 views Tutu Unger DPM Work Phone: Start: 01-14-2025 Radex foot complete minimum 3 views Tutu Unger DPM Work Phone: Start: 07-17-2014 Screening mammography B enjose g Andrew Other End: 03-20-2020 Counseling Harsha Andrew Other Depression screening Julianne Andrew Other Screening for malign ant neoplasm of breast Harsha Andrew Other Plan of Treatment Date Care Activity Detail Author Start: 02-02-2025 [facility] Start: 02-01-2025 Hospital admission [facility] Start: 02-01-2025 [facility] Start: 01-30-2025 End: 01-30-2025 Patient encounter procedure 01/30/2025 4:[address] [facility] Physical Therapy [address] [place], [place] [id number] Richard Santos, PT MEDICARE [facility] Physical Therapy Comment on above: MEDICARE Start: 01-29-2025 Arrangement of care procedure [facility] Start: 01-29-2025 Bacteria identified in Urine by Culture Urine Culture [facility] Start: 01-29-2025 Reposition Thoracic Vertebra, Percutaneous Approach Reposition Thoracic Vertebra, Percutaneous Approach [facility] Start: 01-29-2025 Supplement Thoracic Vertebra with Synthetic Substitute, Percutaneous Approach Supplement Thoracic Vertebra with Synthetic Substitute, Percutaneous Approach [facility] Start: 01-29-2025 Physical therapy procedure [facility] Start: 01-29-2025 Referral to occupati onal therapist [facility] Start: 01-29-2025 Urine culture [facility] Start: 01-29-2025 Consultation [facility] Start: 01-29-2025 Hospital admission [facility] Start: 01-29-2025 [facility] Start: 01-28-2025 Urine culture [facility] Start: 01-28-2025 Bacteria identified in Urine by Culture Urine Culture [facility] Start: 09-30-2024 GFR test (Diabetes, CKD 3-4, OR last GFR 15-59) GFR test (Diabetes, CKD 3-4, OR last GFR 15-59) [facility] [employer] Start: 07-23-2024 COVID-19 Vaccine ( season) COVID-19 [facility]ine () [facility] Start: 10-18-2023 Annual Wellness Visi t (Medicare) Annual Wellness Visit (Medicare) [facility] [employer] Start: 08-02-2023 ambulatory Ambulatory Facility:[facility] Start: 07-27-2023 ambulatory Ambulatory Facility:[facility] Start: 07-03-2020 Pneumococcal 50+ yea rs Vaccine (2 of 2 - PCV) Pneumococcal 50+ years Vaccine (2 of 2 - PCV) [facility] Start: 01-22-2020 Respiratory Syncytia l Virus (RSV) or age 60 yrs+ (1 - 1-dose 75+ series) Respiratory Syncytial Virus (RSV) or age 60 yrs+ (1 - 1-dose 75+ series) [facility] [employer] Start: 01-22-2000 Screening for osteoporosis DEXA (modify frequency per FRAX score) [facility] Start: 01-22-1964 DTaP/Tdap/Td vaccine (1 - Tdap) DTaP/Tdap/Td vaccine (1 - Tdap) [facility] Start: 1963 Urine screening for protein Diabetic Alb to Cr ratio (uACR) test [facility] [employer] Start: 1957 Depression Screen Depression Screen [facility] Start: 1955 Lipid panel Lipids [place] [employer] Comprehensive metabo lic 1999 panel - Serum or Plasma [facility] Comprehensive metabo lic 1999 panel - Serum or Plasma [facility] MG Breast - bilatera l Screening [facility] Patient referral [facility] Work Phone: Urine culture [facility] Immunizations Immunization Date Immunization Notes Care Provider Fa jeniffer 09-06-2024 influenza, high dose seasonal, preservative-free [facility] 08-26-2022 influenza, high dose seasonal, preservative-free Harsha Kamran Other [employer] [facility] [employer] Other 08-26-2022 influenza virus vaccine, split virus (incl. purified surface antigen) Harsha Kamran Other [employer] [place] Other 08-26-2022 influenza virus vaccine, unspecified formulation [facility] 03-09-2022 zoster vaccine recombinant Harsha Andrew Other [facility] 10-21-2021 zoster vaccine recombinant Harsha Ball Other [facility] 08-26-2021 COVID-19 Vaccine Pfi zer - Documentation Purposes Only Harsha Andrew Other [facility] 01-09-2021 COVID-19 Vaccine Pfi zer - Documentation Purposes Only Harsha Andrew Other [facility] 12-19-2020 COVID-19 Vaccine Moderna - Documentation Purposes Only Harsha Kamran Other [facility] 12-19-2020 COVID-19 Vaccine Pfi zer - Documentation Purposes Only Harsha Andrew Other [facility] 09-17-2020 influenza virus vaccine, split virus (incl. purified surface antigen) Harsha Andrew Other [employer] [place] Other 09-17-2020 influenza virus vaccine, unspecified formulation [facility] 10-03-2019 influenza virus vaccine, split virus (incl. purified surface antigen) Harsha Andrew Other [employer] [place] Other 10-03-2019 influenza virus vaccine, unspecified formulation [facility] 07-03-2019 pneumococcal polysaccharide vaccine, 23 valent Harsha Andrew Other [facility] 09-28-2018 influenza virus vaccine, split virus (incl. purified surface antigen) Harsha Andrew Other [facility] [employer] Other 09-28-2018 influenza virus vaccine, unspecified formulation [facility] 08-17-2017 influenza virus vaccine, split virus (incl. purified surface antigen) Harsha Andrew Other [facility] [employer] Other 08-17-2017 influenza virus vaccine, unspecified formulation [facility] 09-04-2015 influenza virus vaccine, split virus (incl. purified surface antigen) Harsha Andrew Other [facility] [employer] Other 09-04-2015 influenza virus vaccine, unspecified formulation [facility] 09-04-2015 pneumococcal conjuga te vaccine, 13 valent Harsha Andrew Other [facility] 08-03-2012 tetanus and diphther ia toxoids, adsorbed, preservative free, for adult use (5 Lf of tetanus toxoid and 2 Lf of diphtheria toxoid) Harsha Andrew Other [facility] pneumococcal Conjuga te, unspecified formulation; Translations: [Need for prophylactic vaccination against Streptococcus pneumoniae (pneumococcus)] Harsha Kamran Other [facility] [employer] Other Payers Date Payer Category Payer Self-pay 2023 Private Health Insurance [employer] m[employer] [id number] 2023 Unknown 2010 Medicare 1959 Medicare [id number] [id number] 1959 Unknown [id number] 2.16.840.1.994019.19 1945 Unknown [id number] 2.16.840.1.004881.3.579.2 .593 1945 Unknown [id number] 2.16.840.1.266371.3.579.2 .593 1945 Unknown [id number] 2.16.840.1.691716.3.579.2 .593 1945 Unknown [id number] 2.16.840.1.576718.3.579.2 .593 1945 Unknown [id number] 2.16.840.1.498686.3.579.2 .593 1945 Unknown [id number] 2.16.840.1.860728.3.579.2 .593 1945 Unknown [id number] 2.16.840.1.388096.3.579.2 .593 1945 Unknown [id number] 2.16.840.1.689413.3.579.2 .593 1945 Unknown [id number] 2.16.840.1.184614.3.579.2 .593 1945 Unknown [id number] 2.16.840.1.138816.3.579.2 .593 1945 Unknown [id number] 2.16.840.1.094437.3.579.2 .593 1945 Unknown [id number] 2.16.840.1.436932.3.579.2 .593 1945 Unknown [id number] 2.16.840.1.986014.3.579.2 .593 194 Unknown [id number] 2.16.840.1.482291.3.579.2 .593 1945 Unknown [id number] 2.16.840.1.327057.3.579.2 .196 1945 Unknown [id number] 2.16.840.1.592991.3.579.2 .196 1945 Unknown [id number] 2.16.840.1.070275.3.579.2 .196 1945 Unknown [id number] 2.16.840.1.183210.3.579.2 .196 1945 Unknown [id number] 2.16.840.1.505314.3.579.2 .196 1945 Unknown [id number] 2.16.840.1.005191.3.579.2 .93 1945 Unknown [id number] 2.16.840.1.300712.3.579.2 .1259 1945 Unknown [id number] 2.16.840.1.577506.3.579.2 .173 1945 Unknown [id number] 2.16.840.1.602626.3.579.2 .173 1945 Unknown [id number] 2.16.840.1.003213.3.579.2 .173 1945 Unknown [id number] 2.16.840.1.257311.3.579.2 .173 1945 Unknown [id number] 2.16.840.1.821964.3.579.2 .173 Unknown [id number] 2.16.840.1.213114.3.579.2 .531 Unknown [id number] 2.16.840.1.160449.3.579.2 .531 Unknown [id number] 2.16.840.1.116084.3.579.2 .531 Social History Date Type Detail Facility Start: 09-25-2023 End: 05-16-2024 Sex Assigned At [facility] [employer] [facility] Start: 1945 Sex Assigned At Female F [facility] Tobacco smoking stat us NHIS Unknown if ever smoked [facility] Work Phone: Start: 01-03-2025 End: 03-21-2025 Sex Female (finding) [facility] Start: 05-16-2024 End: 01-29-2025 Tobacco smoking status NHIS Never smoked tobacco [facility] Start: 05-16-2024 Tobacco use and exposure Smokeless tobacco non-user [facility] Start: 05-16-2024 Alcoholic beverage intake Ex-drinker (finding) [facility] Start: 09-25-2023 End: 05-16-2024 History of Social function [employer] Start: 1945 Sex assigned at Not on file [facility] Start: 09-28-2023 Alcoholic beverage intake Current drinker of alcohol (finding) [employer] Read-Only, Retired: Physical Abuse Denies [employer] Start: 01-16-2013 Alcohol Comment social [employer] Start: 01-30-2025 SDOH Follow up SDOH Follow up [facility] Work Phone: Medical Equipment Procedure Code Equipment Code Equipment Origin al Text Equipment Identifier Dates Kyphoplasty Orthopaedic ceme nt, non-medicated ([id number] FDA Start: 02-01-2025 Nail Im L280mm Inf94mp Fem Tib Ti Josy Lck Rg Gld [place]-Nail - [id number] Start: 09-25-2023 Screw Bne L30mm Dia5mm Ge Ti Int Capt Hex Lo Prof For Im - [id number] Start: 09-25-2023 Screw Bne L30mm Dia5mm Ge Ti Int Capt Hex Lo Prof For Im - [id number] Start: 09-25-2023 Screw Bne L47.5m m Dia5mm Ge Tib Ti Int Hex Lo Prof For Im - [id number] Start: 09-25-2023 Blood Sugar Diagnostic (Contour Test Strips) strip Start: 01-24-2025 Blood Sugar Diagnostic (Contour Test Strips) strip Start: 01-28-2025 Blood Sugar Diagnostic (Contour Next Test Strips) strip Start: 01-24-2025 End: 01-24-2025 Blood Sugar Diagnostic (Contour Test Strips) strip Start: 01-24-2025 Blood Sugar Diagnostic (Contour Test Strips) strip Start: 01-28-2025 Blood Sugar Diagnostic (Contour Next Test Strips) strip Start: 01-24-2025 End: 01-24-2025 Blood Sugar Diagnostic (Contour Test Strips) strip Start: 01-24-2025 Blood Sugar Diagnostic (Contour Test Strips) strip Start: 01-28-2025 Blood Sugar Diagnostic (Contour Next Test Strips) strip Start: 01-24-2025 End: 01-24-2025 Blood Sugar Diagnostic (Contour Test Strips) strip Start: 01-24-2025 Blood Sugar Diagnostic (Contour Test Strips) strip Start: 01-28-2025 Blood Sugar Diagnostic (Contour Next Test Strips) strip Start: 01-24-2025 End: 01-24-2025 Blood Sugar Diagnostic (Contour Test Strips) strip Start: 01-24-2025 Blood Sugar Diagnostic (Contour Test Strips) strip Start: 01-28-2025 Blood Sugar Diagnostic (Contour Next Test Strips) strip Start: 01-24-2025 End: 01-24-2025 Blood Sugar Diagnostic (Contour Test Strips) strip Start: 01-24-2025 Blood Sugar Diagnostic (Contour Test Strips) strip Start: 01-28-2025 Blood Sugar Diagnostic (Contour Next Test Strips) strip Start: 01-24-2025 End: 01-24-2025 Goals Date Patient Goal Desired Activity /State Functional Status Date Assessment Result Facility 02-02-2025 Functional status Patient is Pro gressing Toward Baseline [facility] Work Phone: 01-29-2025 Functional status Patient Not at Baseline [facility] Work Phone: Mental Status Date Assessment Result Facility 02-02-2025 Cognitive function Cognitive Sta tus Patient at Baseline [facility] Work Phone: 01-29-2025 Cognitive function Cognitive Sta tus Patient at Baseline [facility] Work Phone: Clinical Notes 10-01-2022 to 05-04-2025 Note Date & Type Note Facility 05-04-2025 Evaluation note Diagnosis Onset Date Resolution Burst fracture of T12 vertebra acute May 04, 2025 11:34am Essential hypertension acute Ju ne 2024 11:34am GERD (gastroesophageal reflux disease) acute May 04, 2025 11:34am Hypothyroid acute May 04 11:34am Paroxysmal atrial fibrillation acute May 04, 2025 11:34am Stage 3b chronic kidney disease acute May 04, 2025 11:34am Type 2 diabetes mellitus with diabetic polyneuropathy acute May 04, 2025 11:34am Type 2 diabetes mellitus with hyperglycemia acute May 04 11:34am Essential hypertension acute Au sandrita 2024 2:13pm MALIKA (generalized anxiety disorder) acute July 06 2:13pm GERD (gastroesophageal reflux disease) acute July 06 2:13pm Hypothyroid acute July 06, 2025 2:13pm Obstructive sleep apnea acute A ugust 2024 2:13pm Osteopenia acute July 06, 2 025 2:13pm Paroxysmal atrial fibrillation acute July 06 2:13pm Stage 3b chronic kidney disease acute July 06 2:13pm Type 2 diabetes mellitus with diabetic polyneuropathy acute July 06 2:13pm Type 2 diabetes mellitus with hyperglycemia acute July 06, 2025 2:13pm Medicare annual wellness visit, subsequent noneactive July 06, 2 025 2:13pm Screening mammogram for breast cancer noneactive July 06 2:13pm [facility] Work Phone: 1(371) 445-683204-30-2025 Evaluation note* Diagnosis Onset Date Resolution Status Admit Date Burst fracture of T12 vertebra acute March 21, 2025 12:53pm Burst fracture of T12 vertebra acute May 04, 2025 11:34am Essential hypertension acute Ju 2024 11:34am GERD (gastroesophageal reflu x disease) acute May 04, 2025 11:34am Hypothyroid acute May 04 11:34am Paroxysmal atrial fibrillation acute May 04, 2025 11:34am Stage 3b chronic kidney disease acut e May 04, 2025 11:34am Type 2 diabetes mellitus wit h diabetic polyneuropathy acute April 11:34am Type 2 diabetes mellitus wit h hyperglycemia acute May 04, 2025 11:34am [facility] Work Phone: 1(134) 646-439303-14-2025 Progress note Author Donell Rosenbaum [facility] Note Date/Time February 02, 2025 7:1 5am [facility] [address] [place] [address] Neurosurgery Progress Note Signed Patient: Fatuma Fair MR#: [id number] : 1945 Acct:[id number] Age/Sex: 80 / F Adm Date: 5 Loc: Room: [address] [place] [address] Type: ADM IN Attending Dr: Alec Alvarez MD Copies to: ~ Date of Service: 02/02/2025 Subjective Subjective HPI: Patient was seen examined at bedside morning rounds this morning. She is postoperative day 1 from a T12 kyphoplasty secondary intractable back pain worsening in nature as well as worsening T12 fracture. She states that she has had improvement of her preoperative back pain. Exam Physical Exam Vital Signs: Temp Pulse Resp BP Pulse Ox O2 Del Method O2 Flow Rate 97.6 F 71 16 174/75 H 94 L Room Air 6 02/02/25 03:58 02/02/25 03:58 02/02/25 03:58 02/02/25 03:58 02/02/25 03:58 02/02/25 03:58 02/01/25 13:00 Narrative: Patient alert and oriented by 3 Neck supple Affect appropriate Cranial nerves II through XII intact and symmetrical Deltoid bicep tricep and melting supervisor 5/5 bilateral Upper extremity sensory normal to light touch throughout Iliopsoas hamstring quadricep anterior tibial gastrocnemius 5/5 bilateral lower extremities Lower extremity sensory normal light touch throughout Objective Lab Results Most Recent Labs: 02/02/25 04:29: Corrected WBC 11.3, Uncorrected WBC Count 11.3, RBC 3.44 L, Hgb 11.7 L, Hct 34.0, MCV 98.7, MCH 34.0, MCHC 34.4, RDW 13.5, Plt Count 179, MPV 9.0, Neut % (Auto) 87.0, Lymph % (Auto) 4.5, Sibley % (Auto) 7.3, Eos % (Auto) 1.0, Baso % (Auto) 0.2, Nucleat RBC Rel Count 0.2, Neut # (Auto) 9.9 H, Lymph # (Auto) 0.5 L, Sibley # (Auto) 0.8, Eos # (Auto) 0.1, Baso # (Auto) 0.0, PHA Creatinine Clear 47.25, Sodium 131 L, Potassium 3.8, Chloride 97 L, Carbon Dioxide 26.9, Anion Gap 10.9, BUN 31 H, Creatinine 0.82, Est GFR (CKD-EPI) > 60.0, Glucose 227 H, Calcium 8.2 L 02/01/25 20:57: POC Glucose 395 02/01/25 18:08: POC Glucose 276 02/01/25 15:36: POC Glucose 224 02/01/25 13:31: POC Glucose 225 02/01/25 11:37: POC Glucose 239, POC Glucose Comment Glu2: cleaned meter 02/01/25 11:10: Urine Color Yellow, Urine Appearance Cloudy A, Urine pH 5.0, Ur Specific Belding 1.018, Urine Protein 20 H, Urine Glucose (UA) 1000 H, Urine Ketones 1+ H, Urine Occult Blood Negative, Urine Nitrite Negative, Urine Bilirubin Negative, Urine Urobilinogen Normal, Ur Leukocyte Esterase 1+ H, UrineRBC 1-2, Urine WBC 3-4, Urine WBC Clumps Few H, Ur Squamous Epith Cells 1-2, Urine Bacteria 3+ H, Hyaline Casts 9-19 H, Urine Mucus 4+ A 02/01/25 09:20: PT 13.4 H, INR 1.2, APTT 23.5 L 02/01/25 07:44: POC Glucose 319 01/31/25 11:40: POC Glucose 288 01/31/25 07:30: POC Glucose 325 Assessment/Plan Assessment/Plan (1) Burst fracture of T12 vertebra: (2) UTI (urinary tract infection): (3) Fall: (4) Essential hypertension: (5) Type 2 diabetes mellitus with hyperglycemia: Qualifiers: Diabetes mellitus jail insulin use: without salvage determiner use Qualified Code(s): E11.65 - Type 2 diabetes mellitus with hyperglycemia (6) Paroxysmal atrial fibrillation: (7) Chronic anticoagulation: Plan In summary as patient is a 80-year-old female postop day 1 from percutaneous [id number] secondary having worsening thoracic back pain as well as worsening T12 fracture radiographically. At this time the patient states she has had improvement of her back pain. She is pleased that she has done it. From a neurosurgical perspective this patient is stable for discharge with follow-up with us in our clinic in approximately 3 weeks time. She has not made her TLSO back brace anymore. She is stable to be upper mobilization mobilized. She is stable for discharge. All questions were answered to the satisfaction of patient she is comfortable plan. Documented By: Donell Rosenbaum DO 02/02/25713 Signed By: <Electronically signed by Donell Rosenbaum DO> 02/02/25714 [facility] Work Phone: 1(874) 171-173303-14-20[place] [address] Neurosurgery Progress Note Signed Patient: Fatuma Fair MR#: [id number] : 1945 Acct:[id number] Age/Sex: 80 / F Adm Date: 5 Loc: Room: 0G0765-1 Type: ADM IN Attending Dr: Alec Alvarez MD Copies to: ~ Date of Service: 02/02/2025 Subjective Subjective HPI: Patient was seen examined at bedside morning rounds this morning. She is postoperative day 1 from aT12 kyphoplasty secondary intractable back pain worsening in nature as well as worsening T12 fracture. She states that she has had improvement of her preoperative back pain. Exam Physical Exam Vital Signs: Temp Pulse Resp BP Pulse Ox O2 Del Method O2 Flow Rate 97.6 F 71 16 174/75 H 94 L Room Air 6 02/02/25 03:58 02/02/25 03:58 02/02/25 03:58 02/02/25 03:58 02/02/25 03:58 02/02/25 03:58 02/01/25 13:00 Narrative: Patient alert and oriented by 3 Neck supple Affect appropriate Cranial nerves II through XII intact and symmetrical Deltoid bicep tricep and melting supervisor 5/5 bilateral Upper extremity sensory normal to light touch throughout Iliopsoas hamstring quadricep anterior tibial gastrocnemius 5/5 bilateral lower extremities Lower extremity sensory normal light touch throughout Objective Lab Results Most Recent Labs: 02/02/25 04:29: Corrected WBC 11.3, Uncorrected WBC Count 11.3, RBC 3.44 L, Hgb 11.7 L, Hct 34.0, MCV 98.7, MCH 34.0, MCHC 34.4, RDW 13.5, Plt Count 179, MPV 9.0, Neut % (Auto) 87.0, Lymph % (Auto) 4.5, Sibley % (Auto) 7.3, Eos % (Auto) 1.0, Baso % (Auto) 0.2, Nucleat RBC Rel Count 0.2, Neut # (Auto)9.9 H, Lymph # (Auto) 0.5 L, Sibley # (Auto) 0.8, Eos # (Auto) 0.1, Baso # (Auto) 0.0, PHA CreatinineClear 47.25, Sodium 131 L, Potassium 3.8, Chloride 97 L, Carbon Dioxide 26.9, Anion Gap 10.9, BUN 31 H, Creatinine 0.82, Est GFR (CKD-EPI) > 60.0, Glucose 227 H, Calcium 8.2 L 02/01/25 20:57: POC Glucose 395 02/01/25 18:08: POC Glucose 276 02/01/25 15:36: POC Glucose 224 02/01/25 13:31: POC Glucose 225 02/01/25 11:37: POC Glucose 239, POC Glucose Comment Glu2: cleaned meter 02/01/25 11:10: Urine Color Yellow, Urine Appearance Cloudy A, Urine pH 5.0, Ur Specific Belding 1.018, Urine Protein 20 H, Urine Glucose (UA) 1000 H, Urine Ketones 1+ H, Urine Occult Blood Negative,Urine Nitrite Negative, Urine Bilirubin Negative, Urine Urobilinogen Normal, Ur Leukocyte Esterase 1+ H, UrineRBC 1-2, Urine WBC 3-4, Urine WBC Clumps Few H, Ur Squamous Epith Cells 1- 2, Urine Bacteria 3+ H, Hyaline Casts 9-19 H, Urine Mucus 4+ A 02/01/25 09:20: PT 13.4 H, INR 1.2, APTT 23.5 L 02/01/25 07:44: POC Glucose 319 01/31/25 11:40: POC Glucose 288 01/31/25 07:30: POC Glucose 325 Assessment/Plan Assessment/Plan (1) Burst fracture of T12 vertebra: (2) UTI (urinary tract infection): (3) Fall: (4) Essential hypertension: (5) Type 2 diabetes mellitus with hyperglycemia: Qualifiers: Diabetes mellitus jail insulin use: without salvage determiner use Qualified Code(s): E11.65 - Type 2 diabetes mellitus with hyperglycemia (6) Paroxysmal atrial fibrillation: (7) Chronic anticoagulation: Plan In summary as patient is a 80-year-old female postop day 1 from percutaneous [id number] secondary having worsening thoracic back pain as well as worsening T12 fracture radiographically. At this time the patient states she has had improvement of her back pain. She is pleased that she has done it. From a neurosurgical perspective this patient is stable for discharge with follow-up with us in our clinic in approximately 3 weeks time. She has not made her TLSO back brace anymore. She is stable to be upper mobilization mobilized. She is stable for discharge. All questions were answered to the satisfaction of patient she is comfortable plan. Documented By: Donell Rosenbaum DO 02/02/25713 Signed By: 02/02/25 0715 [facility]03-13-2025 Progress note Author Alexandra Cheney [facility] Note Date/Time February 01, 2025 5:1 4pm [facility] [address] [place] [address] Hospitalist Progress Note Signed Patient: Fatuma Fair MR#: [id number] : 1945 Acct:[id number] Age/Sex: 80 / F Adm Date: 5 Loc: 4N Room: 3Z7309-6 Type: ADM IN Attending Dr: Alec Alvarez MD Copies to: ~ Date of Service: 02/01/2025 Subjective Subjective Narrative: patient seen and examined. Seen in holding area. Still endorsing back pain, anxious regarding surgical procedure. Exam Physical Exam Vital Signs: Temp Pulse Resp BP Pulse Ox O2 Del Method 97.8 F 72 14 178/77 H 93 L Room Air 02/01/25 04:00 02/01/25 08:00 02/01/25 04:00 02/01/25 08:00 02/01/25 08:00 02/01/25 10:38 Narrative: CONST- alert, in bed, elderly female frail CARD- RRR no abnormal heart tones PULM- dimin without wheeze or rhonchi, RA ABD- S/NT, NABS EXTREM- no edema BLE, calves nontender Objective Lab Results 02/01/25 04:08 02/01/25 04:08 Microbiology Results Microbiology 01/29/25 09:25 Clean Void Midstream Urine Culture - Final >100,000 colonies/ml mixed bacterial skin contaminants 2 Days Meds Allergies and Active Meds Allergies linagliptin (Tradjenta) Allergy (Unknown, Verified 02/01/25 11:41) Unknown Reaction metformin Allergy (Unknown, Verified 02/01/25 11:41) Unknown Reaction sertraline Allergy (Unknown, Verified 02/01/25 11:41) Unknown Reaction Sulfa (Sulfonamide Antibiotics) Allergy (Unknown, Verified 02/01/25 11:41) Comment:sulfa drugs sulfacetamide Allergy (Unknown, Verified 02/01/25 11:41) Unknown Reaction Active Meds: Active Medications Generic Name Dose Route Start Last Admin Trade Name Freq PRN Reason Stop Dose Admin Acetaminophen 500 mg 01/29/25 02:24 01/30/25 15:42 Acetaminophen 500 Mg Tablet PO 01/29/26 02:23 500 mg Q6H PRN Administration Pain Scale 1 - 3 or fever Alprazolam 0.25 mg 01/29/25 02:20 01/31/25 08:25 Alprazolam 0.25 Mg Tablet PO 07/28/25 02:19 0.25 mg BID PRN Administration anxiety Amiodarone HCl 200 mg 01/29/25 09:00 02/01/25 08:56 Amiodarone 200 Mg Tablet PO 01/29/26 08:59 200 mg DAILY KATHERINE Administration Atorvastatin Calcium 40 mg 01/29/25 22:00 01/31/25 21:19 Atorvastatin 40 Mg Tablet PO 01/29/26 21:59 40 mg HS KATHERINE Administration Dextrose 0 gm 01/29/25 06:27 Dextrose 50% In Water 25 Gm/50 Ml Syringe IV-PUSH 01/29/26 06:26 PRN PRN Hypoglycemia Dextrose 12.5 gm 02/01/25 10:52 Dextrose 50% In Water 25 Gm/50 Ml Syringe IV-PUSH 02/01/25 13:52 PRN PRN Hypoglycemia Diltiazem HCl 240 mg 01/29/25 09:00 02/01/25 08:56 Diltiazem Cd.24hr 240 Mg Cap.Er.24h PO 01/29/26 08:59 240 mg DAILY KATHERINE Administration Docusate Sodium 100 mg 01/29/25 02:29 Docusate 100 Mg Capsule PO 01/29/26 02:28 BID PRN Constipation Enoxaparin Sodium 40 mg 01/29/25 10:00 02/01/25 10:09 Enoxaparin 40 Mg/0.4 Ml Syringe SUBCUT 01/29/26 09:59 Not Given DAILY@10 KATHERINE Glucose 0 gm 01/29/25 06:27 Dextrose 40% Gel 15 Gm Tube PO 01/29/26 06:26 PRN PRN Hypoglycemia Hydralazine HCl 10 mg 01/29/25 02:24 Hydralazine 20 Mg/Ml Vial IV-PUSH 01/29/26 02:23 Q4H PRN Hypertension Hydrochlorothiazide 25 mg 01/29/25 09:00 02/01/25 08:57 Hydrochlorothiazide 25 Mg Tablet PO 01/29/26 08:59 25 mg DAILY KATHERINE Administration Hydromorphone HCl 0.25 mg 01/29/25 02:43 01/29/25 16:45 Hydromorphone 0.5 Mg/0.5 Ml Syringe IV-PUSH 0.25 mg Q4H PRN Administration Pain Scale 8 - 10 Hydromorphone HCl 0.5 mg 02/01/25 10:52 Hydromorphone 0.5 Mg/0.5 Ml Syringe IV-PUSH 02/01/25 13:52 Q5M PRN Pain Lactated Ringer's 1,000 mls @ 20 mls/hr 02/01/25 07:00 02/01/25 10:08 Lactated Ringers IV 02/02/25 06:59 Not Given .Q24H ONE Lactated Ringer's 1,000 mls @ 100 mls/hr 02/01/25 09:00 02/01/25 10:05 Lactated Ringers IV 02/01/26 08:59 100 mls/hr .Q10H KATHERINE Administration Dextrose/Lactated Ringer's 1,000 mls @ 100 mls/hr 02/01/25 10:52 5 % Dextrose-Lactated Ringers IV 02/01/25 13:52 .Q10H PRN Hypoglycemia Insulin Aspart 0 units 01/29/25 08:00 02/01/25 09:05 Insulin Aspart 300 Units/3 Ml SUBCUT 01/29/26 07:59 4 units TID.WM.HS KATHERINE Administration Protocol Insulin Human Regular 0 unit 02/01/25 11:00 Insulin Regular, Human 1,000 Unit/10 Ml SUBCUT 02/01/25 13:52 PROTOCOL KATHERINE Protocol Levothyroxine Sodium 25 mcg 01/29/25 06:30 02/01/25 05:39 Levothyroxine 25 Mcg Tablet PO 01/29/26 06:29 25 mcg DAILY@0630 KATHERINE Administration Lidocaine HCl 0.1 ml 02/01/25 07:00 Lidocaine 1% 50 Ml Vial INTRADERMA PREOP PRN Venipuncture x 1 Dose Lisinopril 20 mg 01/29/25 09:00 02/01/25 08:57 Lisinopril 20 Mg Tablet PO 01/29/26 08:59 20 mg DAILY KATHERINE Administration Melatonin 5 mg 01/29/25 03:08 01/30/25 20:55 Melatonin 5 Mg Tablet PO 01/29/26 03:07 5 mg QHS PRN Administration SLEEP AID Naloxone HCl 0.1 mg 01/29/25 02:24 Naloxone Hcl 0.4 Mg/Ml Vial IV-PUSH 01/29/26 02:23 Q2M PRN Opioid Reversal Ondansetron HCl 4 mg 01/31/25 07:29 01/31/25 08:25 Ondansetron 4 Mg/2 Ml Vial IV-PUSH 01/31/26 07:28 4 mg Q8H PRN Administration Nausea And Vomiting Ondansetron HCl 4 mg 02/01/25 10:52 Ondansetron 4 Mg/2 Ml Vial IV-PUSH 02/01/25 13:52 ONCE PRN Nausea/Vomiting Pantoprazole Sodium 40 mg 01/29/25 09:00 02/01/25 09:19 Pantoprazole 40 Mg Tablet.Dr PO 01/29/26 08:59 Not Given DAILY KAHTERINE Sodium Chloride 0 ml 01/31/25 12:48 Sodium Chloride 0.9 % 10 Ml Syringe IV-PUSH 01/31/26 12:47 PRN PRN Flush Sodium Chloride 0 ml 02/01/25 07:00 Sodium Chloride 0.9 % 10 Ml Syringe IV-PUSH 02/01/26 06:59 PRN PRN Flush Tramadol HCl 50 mg 01/29/25 23:18 02/01/25 06:18 Tramadol 50 Mg Tablet PO 07/28/25 23:17 50 mg Q6H PRN Administration Pain Scale 6 - 10 A&P - Hospitalist Assessment/Plan (1) Burst fracture of T12 vertebra: (2) UTI (urinary tract infection): (3) Fall: (4) Essential hypertension: (5) Type 2 diabetes mellitus with hyperglycemia: (6) Paroxysmal atrial fibrillation: (7) Chronic anticoagulation: Plan Fall T12 burst fracture -Neurosurgery consult appreciated, planned kyphoplasty today -MRI lumbar spine -T12 burst fracture 25-30% height loss and retropulsion casingmild narrowing at this level, L3-5 mod/sev canal narrowing -therapy evaluations- plan dc to [place] -symptom management, IV Hydromorphone and Tramadol. Will schedule ATC dosing acetaminophen also -01/31 patient has now decided she would like kyphoplasty, planned 02/01 UTI, RULED OUT urinary retention -culture with bacterial skin contaminants after initially felt infectious. Afebrile no leukocytosis, asymptomatic. DC Ceftriaxone -voiding trials postop for baldwin removal per nursing protocol Hyponatremia -IVF & Trend labs. Creatinine above her baseline may be a bit dry Chronic Conditions 1. Anxiety- alprazolam 2. Afib on chronic anticoagulation- Warfarin on hold- enoxaparin, Amiodarone, diltiazem 3. Hyperlipidemia- atorvastatin 4. HTN- HCTZ, diltiazem, lisinopril. BP reviewed and elevated, probably pain related. PRN Hydralazine 5. T2DM- SSIC, fingerstick. A1c 8.7. Dulaglutide on hold. Glucoses reviewed and not optimally controlled. Will discuss glucoses with patient to improve management. Goal A1c for her is <8 6. Hypothyroid- levothyroxine 7. GERD- pantoprazole Dr. Alvarez Attestation: Patient was personally seen by me on the day of encounter. I reviewed her history and performed gallegos elements of exam and formulated the plan of care and confirmed the nurse practitioners note above. Plan of care reflects my direct input Documented By: Alexandra Cheney APRN 01/20 02/13 1136 Signed By: <Electronically signed by FROYLAN Cheney> 02/01/25 1522 <Electronically signed by Alec Alvarez MD> 02/01/25 9083 [facility] Work Phone: 1(730) 929-676403-13-2025 [place] [address] Hospitalist Progress Note Signed Patient: Fatuma Fair MR#: [id number] : 1945 Acct:[id number] Age/Sex: 80 / F Adm Date: 5 Loc: Room: [address] [place] [address] Type: ADM IN Attending Dr: Alec Alvarez MD Copies to: ~ Date of Service: 02/01/2025 Subjective Subjective Narrative: patient seen and examined. Seen in holding area. Still endorsing back pain, anxious regarding surgical procedure. Exam Physical Exam Vital Signs: Temp Pulse Resp BP Pulse Ox O2 Del Method 97.8 F 72 14 178/77 H 93 L Room Air 02/01/25 04:00 02/01/25 08:00 02/01/25 04:00 02/01/25 08:00 02/01/25 08:00 02/01/25 10:38 Narrative: CONST- alert, in bed, elderly female frail CARD- RRR no abnormal heart tones PULM- dimin without wheeze or rhonchi, RA ABD- S/NT, NABS EXTREM- no edema BLE, calves nontender Objective Lab Results 02/01/25 04:08 02/01/25 04:08 Microbiology Results Microbiology 01/29/25 09:25 Clean Void Midstream Urine Culture - Final >100,000 colonies/ml mixed bacterial skin contaminants 2 Days Meds Allergies and Active Meds Allergies linagliptin (Tradjenta) Allergy (Unknown, Verified 02/01/25 11:41) Unknown Reaction metformin Allergy (Unknown, Verified 02/01/25 11:41) Unknown Reaction sertraline Allergy (Unknown, Verified 02/01/25 11:41) Unknown Reaction Sulfa (Sulfonamide Antibiotics) Allergy (Unknown, Verified 02/01/25 11:41) Comment:sulfa drugs sulfacetamide Allergy (Unknown, Verified 02/01/25 11:41) Unknown Reaction Active Meds: Active Medications Generic Name Dose Route Start Last Admin Trade Name Freq PRN Reason Stop Dose Admin Acetaminophen 500 mg 01/29/25 02:24 01/30/25 15:42 Acetaminophen 500 Mg Tablet PO 01/29/26 02:23 500 mg Q6H PRN Administration Pain Scale 1 - 3 or fever Alprazolam 0.25 mg 01/29/25 02:20 01/31/25 08:25 Alprazolam 0.25 Mg Tablet PO 07/28/25 02:19 0.25 mg BID PRN Administration anxiety Amiodarone HCl 200 mg 01/29/25 09:00 02/01/25 08:56 Amiodarone 200 Mg Tablet PO 01/29/26 08:59 200 mg DAILY KATHERINE Administration Atorvastatin Calcium 40 mg 01/29/25 22:00 01/31/25 21:19 Atorvastatin 40 Mg Tablet PO 01/29/26 21:59 40 mg HS KATHERINE Administration Dextrose 0 gm 01/29/25 06:27 Dextrose 50% In Water 25 Gm/50 Ml Syringe IV-PUSH 01/29/26 06:26 PRN PRN Hypoglycemia Dextrose 12.5 gm 02/01/25 10:52 Dextrose 50% In Water 25 Gm/50 Ml Syringe IV-PUSH 02/01/25 13:52 PRN PRN Hypoglycemia Diltiazem HCl 240 mg 01/29/25 09:00 02/01/25 08:56 Diltiazem Cd.24hr 240 Mg Cap.Er.24h PO 01/29/26 08:59 240 mg DAILY KATHERINE Administration Docusate Sodium 100 mg 01/29/25 02:29 Docusate 100 Mg Capsule PO 01/29/26 02:28 BID PRN Constipation Enoxaparin Sodium 40 mg 01/29/25 10:00 02/01/25 10:09 Enoxaparin 40 Mg/0.4 Ml Syringe SUBCUT 01/29/26 09:59 Not Given DAILY@10 KATHERINE Glucose 0 gm 01/29/25 06:27 Dextrose 40% Gel 15 Gm Tube PO 01/29/26 06:26 PRN PRN Hypoglycemia Hydralazine HCl 10 mg 01/29/25 02:24 Hydralazine 20 Mg/Ml Vial IV-PUSH 01/29/26 02:23 Q4H PRN Hypertension Hydrochlorothiazide 25 mg 01/29/25 09:00 02/01/25 08:57 Hydrochlorothiazide 25 Mg Tablet PO 01/29/26 08:59 25 mg DAILY KATHERINE Administration Hydromorphone HCl 0.25 mg 01/29/25 02:43 01/29/25 16:45 Hydromorphone 0.5 Mg/0.5 Ml Syringe IV-PUSH 0.25 mg Q4H PRN Administration Pain Scale 8 - 10 Hydromorphone HCl 0.5 mg 02/01/25 10:52 Hydromorphone 0.5 Mg/0.5 Ml Syringe IV-PUSH 02/01/25 13:52 Q5M PRN Pain Lactated Ringer's 1,000 mls @ 20 mls/hr 02/01/25 07:00 02/01/25 10:08 Lactated Ringers IV 02/02/25 06:59 Not Given .Q24H ONE Lactated Ringer's 1,000 mls @ 100 mls/hr 02/01/25 09:00 02/01/25 10:05 Lactated Ringers IV 02/01/26 08:59 100 mls/hr .Q10H KATHERINE Administration Dextrose/Lactated Ringer's 1,000 mls @ 100 mls/hr 02/01/25 10:52 5 % Dextrose-Lactated Ringers IV 02/01/25 13:52 .Q10H PRN Hypoglycemia Insulin Aspart 0 units 01/29/25 08:00 02/01/25 09:05 Insulin Aspart 300 Units/3 Ml SUBCUT 01/29/26 07:59 4 units TID.WM.HS KATHERINE Administration Protocol Insulin Human Regular 0 unit 02/01/25 11:00 Insulin Regular, Human 1,000 Unit/10 Ml SUBCUT 02/01/25 13:52 PROTOCOL KATHERINE Protocol Levothyroxine Sodium 25 mcg 01/29/25 06:30 02/01/25 05:39 Levothyroxine 25 Mcg Tablet PO 01/29/26 06:29 25 mcg DAILY@0630 KATHERINE Administration Lidocaine HCl 0.1 ml 02/01/25 07:00 Lidocaine 1% 50 Ml Vial INTRADERMA PREOP PRN Venipuncture x 1 Dose Lisinopril 20 mg 01/29/25 09:00 02/01/25 08:57 Lisinopril 20 Mg Tablet PO 01/29/26 08:59 20 mg DAILY KATHERINE Administration Melatonin 5 mg 01/29/25 03:08 01/30/25 20:55 Melatonin 5 Mg Tablet PO 01/29/26 03:07 5 mg QHS PRN Administration SLEEP AID Naloxone HCl 0.1 mg 01/29/25 02:24 Naloxone Hcl 0.4 Mg/Ml Vial IV-PUSH 01/29/26 02:23 Q2M PRN Opioid Reversal Ondansetron HCl 4 mg 01/31/25 07:29 01/31/25 08:25 Ondansetron 4 Mg/2 Ml Vial IV-PUSH 01/31/26 07:28 4 mg Q8H PRN Administration Nausea And Vomiting Ondansetron HCl 4 mg 02/01/25 10:52 Ondansetron 4 Mg/2 Ml Vial IV-PUSH 02/01/25 13:52 ONCE PRN Nausea/Vomiting Pantoprazole Sodium 40 mg 01/29/25 09:00 02/01/25 09:19 Pantoprazole 40 Mg Tablet.Dr PO 01/29/26 08:59 Not Given DAILY KATHERINE Sodium Chloride 0 ml 01/31/25 12:48 Sodium Chloride 0.9 % 10 Ml Syringe IV-PUSH 01/31/26 12:47 PRN PRN Flush Sodium Chloride 0 ml 02/01/25 07:00 Sodium Chloride 0.9 % 10 Ml Syringe IV-PUSH 02/01/26 06:59 PRN PRN Flush Tramadol HCl 50 mg 01/29/25 23:18 02/01/25 06:18 Tramadol 50 Mg Tablet PO 07/28/25 23:17 50 mg Q6H PRN Administration Pain Scale 6 - 10 A&P - Hospitalist Assessment/Plan (1) Burst fracture of T12 vertebra: (2) UTI (urinary tract infection): (3) Fall: (4) Essential hypertension: (5) Type 2 diabetes mellitus with hyperglycemia: (6) Paroxysmal atrial fibrillation: (7) Chronic anticoagulation: Plan Fall T12 burst fracture -Neurosurgery consult appreciated, planned kyphoplasty today -MRI lumbar spine -T12 burst fracture 25-30% height loss and retropulsion casingmild narrowing at this level, L3-5 mod/sev canal narrowing -therapy evaluations- plan dc to [place] -symptom management, IV Hydromorphone and Tramadol. Will schedule ATC dosing acetaminophen also -01/31 patient has now decided she would like kyphoplasty, planned 02/01 UTI, RULED OUT urinary retention -culture with bacterial skin contaminants after initially felt infectious. Afebrile no leukocytosis, asymptomatic. DC Ceftriaxone -voiding trials postop for baldwin removal per nursing protocol Hyponatremia -IVF & Trend labs. Creatinine above her baseline may be a bit dry Chronic Conditions 1. Anxiety- alprazolam 2. Afib on chronic anticoagulation- Warfarin on hold- enoxaparin, Amiodarone, diltiazem 3. Hyperlipidemia- atorvastatin 4. HTN- HCTZ, diltiazem, lisinopril. BP reviewed and elevated, probably pain related. PRN Hydralazine 5. T2DM- SSIC, fingerstick. A1c 8.7. Dulaglutide on hold. Glucoses reviewed and not optimally controlled. Will discuss glucoses with patient to improve management. Goal A1c for her is <8 6. Hypothyroid- levothyroxine 7. GERD- pantoprazole Dr. Alvarez Attestation: Patient was personally seen by me on the day of encounter. I reviewed her history and performed keyelements of exam and formulated the plan of care and confirmed the nurse practitioners note above. Plan of care reflects my direct input Documented By: Alexandra Cheney APRN 01/20 02/13 1136 Signed By: 02/01/25 1522 02/01/25 1714 [facility]03-12-2025 Progress note Author Alexandra Cheney [facility] Note Date/Time January 31, 2025 5:2 1pm [facility] [address] [place] [address] Hospitalist Progress Note Signed with Scooter Patient: Fatuma Fair MR#: [id number] : 1945 Acct:[id number] Age/Sex: 80 / F Adm Date: 5 Loc: 4N Room: [address] [place] [address] Type: ADM IN Attending Dr: Alec Alvarez MD Copies to: ~ ADDENDUM1 EKG SR Echo EF 65-70%, LVH, mild AR CXR- nonacute Pt medically/ cardiac cleared for surgery - see additional notations below Addendum Documented By: FROYLAN Cheney 01/31/251720 Addendum Signed By: <Electronically signed by FROYLAN Cheney> 01/31/25 172 Date of Service: 01/31/2025 Subjective Subjective Narrative: Patient seen and examined. She endorses pain ongoing, has decided she does wantsurgical intervention. Denies chest pain or dyspnea. Exam Physical Exam Vital Signs: Temp Pulse Resp BP Pulse Ox O2 Del Method 98.1 F 73 16 150/70 H 96 Room Air 01/31/25 08:12 01/31/25 09:37 01/31/25 09:37 01/31/25 09:37 01/31/25 09:37 01/31/25 09:37 Narrative: CONST- alert, in bed, elderly female frail CARD- RRR no abnormal heart tones PULM- dimin without wheeze or rhonchi, RA ABD- S/NT, NABS EXTREM- no edema BLE, calves nontender Objective Lab Results 01/29/25 03:56 01/29/25 03:56 Microbiology Results Microbiology 01/29/25 09:25 Clean Void Midstream Urine Culture - Final >100,000 colonies/ml mixed bacterial skin contaminants 2 Days Meds Allergies and Active Meds Allergies linagliptin (Tradjenta) Allergy (Unknown, Verified 01/03/25 14:26) Unknown Reaction metformin Allergy (Unknown, Verified 01/03/25 14:26) Unknown Reaction sertraline Allergy (Unknown, Verified 01/03/25 14:26) Unknown Reaction Sulfa (Sulfonamide Antibiotics) Allergy (Unknown, Verified 01/03/25 14:26) Comment:sulfa drugs sulfacetamide Allergy (Unknown, Verified 01/03/25 14:26) Unknown Reaction Active Meds: Active Medications Generic Name Dose Route Start Last Admin Trade Name Freq PRN Reason Stop Dose Admin Acetaminophen 500 mg 01/29/25 02:24 01/30/25 15:42 Acetaminophen 500 Mg Tablet PO 01/29/26 02:23 500 mg Q6H PRN Administration Pain Scale 1 - 3 or fever Alprazolam 0.25 mg 01/29/25 02:20 01/31/25 08:25 Alprazolam 0.25 Mg Tablet PO 07/28/25 02:19 0.25 mg BID PRN Administration anxiety Amiodarone HCl 200 mg 01/29/25 09:00 01/31/25 08:25 Amiodarone 200 Mg Tablet PO 01/29/26 08:59 200 mg DAILY KATHERINE Administration Atorvastatin Calcium 40 mg 01/29/25 22:00 01/30/25 21:12 Atorvastatin 40 Mg Tablet PO 01/29/26 21:59 40 mg HS KATHERINE Administration Dextrose 0 gm 01/29/25 06:27 Dextrose 50% In Water 25 Gm/50 Ml Syringe IV-PUSH 01/29/26 06:26 PRN PRN Hypoglycemia Diltiazem HCl 240 mg 01/29/25 09:00 01/31/25 08:24 Diltiazem Cd.24hr 240 Mg Cap.Er.24h PO 01/29/26 08:59 240 mg DAILY KATHERINE Administration Docusate Sodium 100 mg 01/29/25 02:29 Docusate 100 Mg Capsule PO 01/29/26 02:28 BID PRN Constipation Enoxaparin Sodium 40 mg 01/29/25 10:00 01/31/25 11:07 Enoxaparin 40 Mg/0.4 Ml Syringe SUBCUT 01/29/26 09:59 Not Given DAILY@10 KATHERINE Glucose 0 gm 01/29/25 06:27 Dextrose 40% Gel 15 Gm Tube PO 01/29/26 06:26 PRN PRN Hypoglycemia Hydralazine HCl 10 mg 01/29/25 02:24 Hydralazine 20 Mg/Ml Vial IV-PUSH 01/29/26 02:23 Q4H PRN Hypertension Hydrochlorothiazide 25 mg 01/29/25 09:00 01/31/25 08:25 Hydrochlorothiazide 25 Mg Tablet PO 01/29/26 08:59 25 mg DAILY KATHERINE Administration Hydromorphone HCl 0.25 mg 01/29/25 02:43 01/29/25 16:45 Hydromorphone 0.5 Mg/0.5 Ml Syringe IV-PUSH 0.25 mg Q4H PRN Administration Pain Scale 8 - 10 Insulin Aspart 0 units 01/29/25 08:00 01/31/25 08:25 Insulin Aspart 300 Units/3 Ml SUBCUT 01/29/26 07:59 4 units TID.WM.HS KATHERINE Administration Protocol Levothyroxine Sodium 25 mcg 01/29/25 06:30 01/31/25 05:40 Levothyroxine 25 Mcg Tablet PO 01/29/26 06:29 25 mcg DAILY@0630 KATHERINE Administration Lisinopril 20 mg 01/29/25 09:00 01/31/25 08:24 Lisinopril 20 Mg Tablet PO 01/29/26 08:59 20 mg DAILY KATHERINE Administration Melatonin 5 mg 01/29/25 03:08 01/30/25 20:55 Melatonin 5 Mg Tablet PO 01/29/26 03:07 5 mg QHS PRN Administration SLEEP AID Naloxone HCl 0.1 mg 01/29/25 02:24 Naloxone Hcl 0.4 Mg/Ml Vial IV-PUSH 01/29/26 02:23 Q2M PRN Opioid Reversal Ondansetron HCl 4 mg 01/31/25 07:29 01/31/25 08:25 Ondansetron 4 Mg/2 Ml Vial IV-PUSH 01/31/26 07:28 4 mg Q8H PRN Administration Nausea And Vomiting Pantoprazole Sodium 40 mg 01/29/25 09:00 01/31/25 08:24 Pantoprazole 40 Mg Tablet. PO 01/29/26 08:59 40 mg DAILY KATHERINE Administration Tramadol HCl 50 mg 01/29/25 23:18 01/31/25 05:40 Tramadol 50 Mg Tablet PO 07/28/25 23:17 50 mg Q6H PRN Administration Pain Scale 6 - 10 A&P - Hospitalist Assessment/Plan (1) Burst fracture of T12 vertebra: (2) UTI (urinary tract infection): (3) Fall: (4) Essential hypertension: (5) Type 2 diabetes mellitus with hyperglycemia: (6) Paroxysmal atrial fibrillation: (7) Chronic anticoagulation: Plan Fall T12 burst fracture -Neurosurgery consult appreciated -MRI lumbar spine -T12 burst fracture 25-30% height loss and retropulsion casingmild narrowing at this level, L3-5 mod/sev canal narrowing -therapy evaluations- plan dc to [facility]- they can accept -symptom management, utilizing IV Hydromorphone and Tramadol -01/31 patient has now decided she would like kyphoplasty, planned 02/01 -pending EKG/ echo/ CXR for preop clearance. RCRI=0. Hx Lexiscan 10/2021 normal. Echo 04/2022 EF 55-60% mild TR/MR/SD UTI, RULED OUT -culture with bacterial skin contaminants after initially felt infectious. Afebrile no leukocytosis, asymptomatic. DC Ceftriaxone Chronic Conditions 1. Anxiety- alprazolam 2. Afib on chronic anticoagulation- Warfarin on hold- enoxaparin, Amiodarone, diltiazem 3. Hyperlipidemia- atorvastatin 4. HTN- HCTZ, diltiazem, lisinopril. BP reviewed and elevated, probably pain related. PRN Hydralazine 5. T2DM- SSIC, fingerstick. A1c 8.7. Dulaglutide on hold. Glucoses reviewed and not optimally controlled. Will discuss glucoses with patient to improve management. 6. Hypothyroid- levothyroxine 7. GERD- pantoprazole Dr. Alvarez Attestation: Patient was personally seen by me on the day of encounter. I reviewed her history and performed gallegos elements of exam and formulated the plan of care and confirmed the nurse practitioner's note above. Plan of care reflects my direct input Documented By: Alexandra Cheney APRN 01/20 01/16 1114 Signed By: <Electronically signed by FROYLAN Cheney> 01/31/25 1324 <Electronically signed by Alec Alvarez MD> 01/31/25 [facility] Work Phone: 1(131) 678-491603-12-2025 [place] [address] Hospitalist Progress Note Signed with Addenda Patient: Fatuma Fair MR#: [id number] : 1945 Acct:[id number] Age/Sex: 80 / F Adm Date: 5 Loc: 4N Room: 4T6168-6 Type: ADM IN Attending Dr: Alec Alvarez MD Copies to: ~ ADDENDUM1 EKG SR Echo EF 65-70%, LVH, mild AR CXR- nonacute Pt medically/ cardiac cleared for surgery - see additional notations below Addendum Documented By: FROYLAN CanaleshouseJoannaCorrell 01/31/251720 Addendum Signed By: 01/31/251720 Date of Service: 01/31/2025 Subjective Subjective Narrative: Patient seen and examined. She endorses pain ongoing, has decided she does wantsurgical intervention. Denies chest pain or dyspnea. Exam Physical Exam Vital Signs: Temp Pulse Resp BP Pulse Ox O2 Del Method 98.1 F 73 16 150/70 H 96 Room Air 01/31/25 08:12 01/31/25 09:37 01/31/25 09:37 01/31/25 09:37 01/31/25 09:37 01/31/25 09:37 Narrative: CONST- alert, in bed, elderly female frail CARD- RRR no abnormal heart tones PULM- dimin without wheeze or rhonchi, RA ABD- S/NT, NABS EXTREM- no edema BLE, calves nontender Objective Lab Results 01/29/25 03:56 01/29/25 03:56 Microbiology Results Microbiology 01/29/25 09:25 Clean Void Midstream Urine Culture - Final >100,000 colonies/ml mixed bacterial skin contaminants 2 Days Meds Allergies and Active Meds Allergies linagliptin (Tradjenta) Allergy (Unknown, Verified 01/03/25 14:26) Unknown Reaction metformin Allergy (Unknown, Verified 01/03/25 14:26) Unknown Reaction sertraline Allergy (Unknown, Verified 01/03/25 14:26) Unknown Reaction Sulfa (Sulfonamide Antibiotics) Allergy (Unknown, Verified 01/03/25 14:26) Comment:sulfa drugs sulfacetamide Allergy (Unknown, Verified 01/03/25 14:26) Unknown Reaction Active Meds: Active Medications Generic Name Dose Route Start Last Admin Trade Name Freq PRN Reason Stop Dose Admin Acetaminophen 500 mg 01/29/25 02:24 01/30/25 15:42 Acetaminophen 500 Mg Tablet PO 01/29/26 02:23 500 mg Q6H PRN Administration Pain Scale 1 - 3 or fever Alprazolam 0.25 mg 01/29/25 02:20 01/31/25 08:25 Alprazolam 0.25 Mg Tablet PO 07/28/25 02:19 0.25 mg BID PRN Administration anxiety Amiodarone HCl 200 mg 01/29/25 09:00 01/31/25 08:25 Amiodarone 200 Mg Tablet PO 01/29/26 08:59 200 mg DAILY KATHERIEN Administration Atorvastatin Calcium 40 mg 01/29/25 22:00 01/30/25 21:12 Atorvastatin 40 Mg Tablet PO 01/29/26 21:59 40 mg HS KATHERINE Administration Dextrose 0 gm 01/29/25 06:27 Dextrose 50% In Water 25 Gm/50 Ml Syringe IV-PUSH 01/29/26 06:26 PRN PRN Hypoglycemia Diltiazem HCl 240 mg 01/29/25 09:00 01/31/25 08:24 Diltiazem Cd.24hr 240 Mg Cap.Er.24h PO 01/29/26 08:59 240 mg DAILY KATHERINE Administration Docusate Sodium 100 mg 01/29/25 02:29 Docusate 100 Mg Capsule PO 01/29/26 02:28 BID PRN Constipation Enoxaparin Sodium 40 mg 01/29/25 10:00 01/31/25 11:07 Enoxaparin 40 Mg/0.4 Ml Syringe SUBCUT 01/29/26 09:59 Not Given DAILY@10 KATHERINE Glucose 0 gm 01/29/25 06:27 Dextrose 40% Gel 15 Gm Tube PO 01/29/26 06:26 PRN PRN Hypoglycemia Hydralazine HCl 10 mg 01/29/25 02:24 Hydralazine 20 Mg/Ml Vial IV-PUSH 01/29/26 02:23 Q4H PRN Hypertension Hydrochlorothiazide 25 mg 01/29/25 09:00 01/31/25 08:25 Hydrochlorothiazide 25 Mg Tablet PO 01/29/26 08:59 25 mg DAILY KATHERINE Administration Hydromorphone HCl 0.25 mg 01/29/25 02:43 01/29/25 16:45 Hydromorphone 0.5 Mg/0.5 Ml Syringe IV-PUSH 0.25 mg Q4H PRN Administration Pain Scale 8 - 10 Insulin Aspart 0 units 01/29/25 08:00 01/31/25 08:25 Insulin Aspart 300 Units/3 Ml SUBCUT 01/29/26 07:59 4 units TID.WM.HS KATHERINE Administration Protocol Levothyroxine Sodium 25 mcg 01/29/25 06:30 01/31/25 05:40 Levothyroxine 25 Mcg Tablet PO 01/29/26 06:29 25 mcg DAILY@0630 KATHERINE Administration Lisinopril 20 mg 01/29/25 09:00 01/31/25 08:24 Lisinopril 20 Mg Tablet PO 01/29/26 08:59 20 mg DAILY KATHERINE Administration Melatonin 5 mg 01/29/25 03:08 01/30/25 20:55 Melatonin 5 Mg Tablet PO 01/29/26 03:07 5 mg QHS PRN Administration SLEEP AID Naloxone HCl 0.1 mg 01/29/25 02:24 Naloxone Hcl 0.4 Mg/Ml Vial IV-PUSH 01/29/26 02:23 Q2M PRN Opioid Reversal Ondansetron HCl 4 mg 01/31/25 07:29 01/31/25 08:25 Ondansetron 4 Mg/2 Ml Vial IV-PUSH 01/31/26 07:28 4 mg Q8H PRN Administration Nausea And Vomiting Pantoprazole Sodium 40 mg 01/29/25 09:00 01/31/25 08:24 Pantoprazole 40 Mg Tablet. PO 01/29/26 08:59 40 mg DAILY KATHERINE Administration Tramadol HCl 50 mg 01/29/25 23:18 01/31/25 05:40 Tramadol 50 Mg Tablet PO 07/28/25 23:17 50 mg Q6H PRN Administration Pain Scale 6 - 10 A&P - Hospitalist Assessment/Plan (1) Burst fracture of T12 vertebra: (2) UTI (urinary tract infection): (3) Fall: (4) Essential hypertension: (5) Type 2 diabetes mellitus with hyperglycemia: (6) Paroxysmal atrial fibrillation: (7) Chronic anticoagulation: Plan Fall T12 burst fracture -Neurosurgery consult appreciated -MRI lumbar spine -T12 burst fracture 25-30% height loss and retropulsion casingmild narrowing at this level, L3-5 mod/sev canal narrowing -therapy evaluations- plan dc to [facility]- they can accept -symptom management, utilizing IV Hydromorphone and Tramadol -01/31 patient has now decided she would like kyphoplasty, planned 02/01 -pending EKG/ echo/ CXR for preop clearance. RCRI=0. Hx Lexiscan 10/2021 normal. Echo 04/2022 EF 55-60% mild TR/MR/SD UTI, RULED OUT -culture with bacterial skin contaminants after initially felt infectious. Afebrile no leukocytosis, asymptomatic. DC Ceftriaxone Chronic Conditions 1. Anxiety- alprazolam 2. Afib on chronic anticoagulation- Warfarin on hold- enoxaparin, Amiodarone, diltiazem 3. Hyperlipidemia- atorvastatin 4. HTN- HCTZ, diltiazem, lisinopril. BP reviewed and elevated, probably pain related. PRN Hydralazine 5. T2DM- SSIC, fingerstick. A1c 8.7. Dulaglutide on hold. Glucoses reviewed and not optimally controlled. Will discuss glucoses with patient to improve management. 6. Hypothyroid- levothyroxine 7. GERD- pantoprazole Dr. Alvarez Attestation: Patient was personally seen by me on the day of encounter. I reviewed her history and performed keyelements of exam and formulated the plan of care and confirmed the nurse practitioner's note above.Plan of care reflects my direct input Documented By: Alexandra Cheney APRN 01/20 01/16 1114 Signed By: 01/31/25 1324 01/31/25 1642 [facility]03-12-2025 Progress note Author Donell Rosenbaum [facility] Note Date/Time January 31, 2025 12: 52pm [facility] [address] [place] [address] Neurosurgery Progress Note Signed Patient: Fatuma Fair MR#: [id number] : 1945 Acct:[id number] Age/Sex: 80 / F Adm Date: 5 Loc: Room: 4M7639-0 Type: ADM IN Attending Dr: Alec Alvarez MD Copies to: ~ Date of Service: 01/31/2025 Subjective Subjective HPI: I had a conversation with the patient's son Braulio over the phone just now again discussing moving forward with a T12 percutaneous kyphoplasty at the patient's request. She was contemplating this with her son. After speaking on the phone with her son Braulio I discussed the surgery and what it entails as well as what the recovery process will look like. I described in the risks that include but are not limited to bleeding infection paralysis spinal cord injury nerve root injury loss of function of her extremities loss of bladder bowel function CSF leak vascular injury resulting in stroke coma and cement extravasationleading to AL PE DVT worsening condition any future surgery. After all this been discussed the patient's son Braulio tells me that he will call his mom Yunior discussed this and sounds that they do want proceed with surgery. That being said we do request medical and cardiac clearances to proceed with theplanned proposed procedure of a T12 percutaneous kyphoplasty tomorrow which she is currently tentatively boarded for 1230 tomorrow. Exam Physical Exam Vital Signs: Temp Pulse Resp BP Pulse Ox O2 Del Method 98.3 F 79 18 122/73 97 Room Air 01/31/25 12:46 01/31/25 12:46 01/31/25 12:46 01/31/25 12:46 01/31/25 12:46 01/31/25 12:46 Objective Lab Results Most Recent Labs: 01/31/25 10:24: PT 15.5 H, INR 1.4, APTT 24.9 L 01/31/25 06:26: POC Glucose 325 01/30/25 19:53: POC Glucose 328 01/30/25 15:47: POC Glucose 313 01/29/25 03:56: Procalcitonin 0.12 H Microbiology Micro: Microbiology 01/29/25 09:25 Clean Void Midstream Urine Culture - Final >100,000 colonies/ml mixed bacterial skin contaminants 2 Days Assessment/Plan Assessment/Plan (1) Burst fracture of T12 vertebra: Plan as above Documented By: Donell Rosenbaum DO 01/31/25 1250 Signed By: <Electronically signed by Donell Rosenbaum DO> 01/31/25 1252 [facility] Work Phone: 1(698) 439-159303-12-2025 [place] [address] Neurosurgery Progress Note Signed Patient: Fatuma Fair MR#: [id number] : 1945 Acct:[id number] Age/Sex: 80 / F Adm Date: 5 Loc: 4N Room: [address] [place] [address] Type: ADM IN Attending Dr: Alec Alvarez MD Copies to: ~ Date of Service: 01/31/2025 Subjective Subjective HPI: I had a conversation with the patient's son Braulio over the phone just now again discussing moving forward with a T12 percutaneous kyphoplasty at the patient's request. She was contemplating this withher son. After speaking on the phone with her son Braulio I discussed the surgery and what it entailsas well as what the recovery process will look like. I described in the risks that include but are not limited to bleeding infection paralysis spinal cord injury nerve root injury loss of function of her extremities loss of bladder bowel function CSF leak vascular injury resulting in stroke coma and cement extravasationleading to AL PE DVT worsening condition any future surgery. After all this been discussed the patient's son Braulio tells me that he will call his mom Yunior discussed this and sounds that they do want proceed with surgery. That being said we do request medical and cardiac clearances to proceed with theplanned proposed procedure of a T12 percutaneous kyphoplasty tomorrow which she is currently tentatively boarded for 1230 tomorrow. Exam Physical Exam Vital Signs: Temp Pulse Resp BP Pulse Ox O2 Del Method 98.3 F 79 18 122/73 97 Room Air 01/31/25 12:46 01/31/25 12:46 01/31/25 12:46 01/31/25 12:46 01/31/25 12:46 01/31/25 12:46 Objective Lab Results Most Recent Labs: 01/31/25 10:24: PT 15.5 H, INR 1.4, APTT 24.9 L 01/31/25 06:26: POC Glucose 325 01/30/25 19:53: POC Glucose 328 01/30/25 15:47: POC Glucose 313 01/29/25 03:56: Procalcitonin 0.12 H Microbiology Micro: Microbiology 01/29/25 09:25 Clean Void Midstream Urine Culture - Final >100,000 colonies/ml mixed bacterial skin contaminants 2 Days Assessment/Plan Assessment/Plan (1) Burst fracture of T12 vertebra: Plan as above Documented By: Donell Rosenbaum DO 01/31/251249 Signed By: 01/31/25 1252 [facility]03-12-2025 Progress note Author Donell Rosenbaum [facility] Note Date/Time January 31, 2025 8:0 4am [facility] [address] [place] [address] Neurosurgery Progress Note Signed Patient: Fatuma Fair MR#: [id number] : 1945 Acct:[id number] Age/Sex: 80 / F Adm Date: Loc: 4N Room: [id number] Type: ADM IN Attending Dr: Alec Alvarez MD Copies to: ~ Date of Service: 01/31/2025 Subjective Subjective HPI: Patient was seen and examined at bedside in morning rounds this morning. She states that the back pain was improved with her brace but she states now the brace is not helping with her back pain and describes the back pain as being excruciating even laying down in bed to the point where she feels like she needsto proceed with surgery because of how bad her back pain is. Exam Physical Exam Vital Signs: Temp Pulse Resp BP Pulse Ox O2 Del Method 97.8 F 71 16 139/75 93 L Room Air 01/30/25 23:00 01/30/25 23:00 01/30/25 23:00 01/30/25 23:00 01/30/25 23:00 01/30/25 23:00 Narrative: Patient alert and oriented by 3 Neck supple Affect appropriate Cranial nerves II through XII intact and symmetrical Deltoid bicep tricep and melting supervisor 5/5 bilateral Upper extremity sensory normal to light touch throughout Iliopsoas hamstring quadricep anterior tibial gastrocnemius 5/5 bilateral lower extremities Lower extremity sensory normal light touch throughout Objective Lab Results Most Recent Labs: 01/31/25 06:26: POC Glucose 325 01/30/25 19:53: POC Glucose 328 01/30/25 15:47: POC Glucose 313 01/30/25 11:37: POC Glucose 326 01/29/25 03:56: Procalcitonin 0.12 H Microbiology Micro: Microbiology 01/29/25 09:25 Clean Void Midstream Urine Culture - Preliminary >100,000 colonies/ml mixed bacterial skin contaminants 1 Day Assessment/Plan Assessment/Plan (1) Burst fracture of T12 vertebra: (2) UTI (urinary tract infection): (3) Fall: (4) Essential hypertension: (5) Type 2 diabetes mellitus with hyperglycemia: Qualifiers: Diabetes mellitus salvage determiner insulin use: without salvage determiner use Qualified Code(s): E11.65 - Type 2 diabetes mellitus with hyperglycemia (6) Paroxysmal atrial fibrillation: (7) Chronic anticoagulation: Plan In summary as patient is a 80-year-old female status post fall with a T12 burst fracture being treated nonoperatively TLSO back brace. At this time the patient was previously it saying that her back pain was becoming increasingly more tolerable and she was pleased with how the back bracewas helping with her back pain. Today she states though that the back pain is intolerable and that the brace is not helping and that she is contemplating needing to proceed with surgery. That being said I discussed with her surgery in the form of a percutaneous T12 kyphoplasty. I discussed the surgery and whatit entails as well as what the recovery process will look like. I discussed with her the risk to include but not limited to bleeding infection paralysis spinal cord injury nerve root injury loss of function of her extremities loss of bladder bowel function CSF leak vascular injury resulting instroke coma and cement extravasation leading to AL PE DVT worsening condition any future surgery. After all this has been discussed the patient will contemplate surgery and will let us know with her decision. If that is thecase we would need clearances and I did tell her that surgery would have to be tomorrow and if not tomorrow the next week. All questions were answered to the satisfaction of this patient she is in agreement with the above plan. Documented By: Donell Rosenbaum DO 01/31/25 0801 Signed By: <Electronically signed by Donell Rosenbaum DO> 01/31/25 0804 [facility] Work Phone: 1(145) 282-463503-12-2025 [place] [address] Neurosurgery Progress Note Signed Patient: Fatuma Fair MR#: [id number] : 1945 Acct:[id number] Age/Sex: 80 / F Adm Date: 5 Loc: 4N Room: 4R7831-0 Type: ADM IN Attending Dr: Alec Alvarez MD Copies to: ~ Date of Service: 01/31/2025 Subjective Subjective HPI: Patient was seen and examined at bedside in morning rounds this morning. She states that the back pain was improved with her brace but she states now the brace is not helping with her back pain and describes the back pain as being excruciating even laying down in bed to the point where she feels like she needsto proceed with surgery because of how bad her back pain is. Exam Physical Exam Vital Signs: Temp Pulse Resp BP Pulse Ox O2 Del Method 97.8 F 71 16 139/75 93 L Room Air 01/30/25 23:00 01/30/25 23:00 01/30/25 23:00 01/30/25 23:00 01/30/25 23:00 01/30/25 23:00 Narrative: Patient alert and oriented by 3 Neck supple Affect appropriate Cranial nerves II through XII intact and symmetrical Deltoid bicep tricep and melting supervisor 5/5 bilateral Upper extremity sensory normal to light touch throughout Iliopsoas hamstring quadricep anterior tibial gastrocnemius 5/5 bilateral lower extremities Lower extremity sensory normal light touch throughout Objective Lab Results Most Recent Labs: 01/31/25 06:26: POC Glucose 325 01/30/25 19:53: POC Glucose 328 01/30/25 15:47: POC Glucose 313 01/30/25 11:37: POC Glucose 326 01/29/25 03:56: Procalcitonin 0.12 H Microbiology Micro: Microbiology 01/29/25 09:25 Clean Void Midstream Urine Culture - Preliminary >100,000 colonies/ml mixed bacterial skin contaminants 1 Day Assessment/Plan Assessment/Plan (1) Burst fracture of T12 vertebra: (2) UTI (urinary tract infection): (3) Fall: (4) Essential hypertension: (5) Type 2 diabetes mellitus with hyperglycemia: Qualifiers: Diabetes mellitus salvage determiner insulin use: without jail use Qualified Code(s): E11.65 - Type 2 diabetes mellitus with hyperglycemia (6) Paroxysmal atrial fibrillation: (7) Chronic anticoagulation: Plan In summary as patient is a 80-year-old female status post fall with a T12 burst fracture being treated nonoperatively TLSO back brace. At this time the patient was previously it saying that her back pain was becoming increasingly moretolerable and she was pleased with how the back bracewas helping with her back pain. Today she states though that the back pain is intolerable and that the brace is not helping and that she is contemplating needing to proceed with surgery. That being said I discussed with her surgery in the form ofa percutaneous T12 kyphoplasty. I discussed the surgery and whatit entails as well as what the recovery process will look like. I discussed with her the risk to include but not limited to bleeding infection paralysis spinal cord injury nerve root injury loss of function of her extremities loss of bladder bowel function CSF leak vascular injury resulting instroke coma and cement extravasation leading to AL PE DVT worsening condition any future surgery. After all this has been discussed the patient will contemplate surgery and will let us know with her decision. If that is thecase we would need clearances and I did tell her that surgery would have to be tomorrow and if not tomorrow the next week. All questions were answered to the satisfaction of this patient she is in agreementwith the above plan. Documented By: Donell Rosenbaum DO 01/31/25800 Signed By: 01/31/25 0804 [facility]03-11-2025 Progress note Author Alexandra Cheney [facility] Note Date/Time January 30, 2025 9:1 2pm [facility] [address] [place] [address] Hospitalist Progress Note Signed Patient: Fatuma Fair MR#: [id number] : 1945 Acct:[id number] Age/Sex: 80 / F Adm Date: 5 Loc: Room: [address] [place] [address] Type: ADM IN Attending Dr: Alec Alvarez MD Copies to: ~ Date of Service: 01/30/2025 Subjective Subjective Narrative: Patient seen and examined. She is up in chair, wearing TLSO brace. Still endorses pain back. Worked with therapy today. Charge nurse made aware to Jose reassess fit as brace pushes up into chin if patient not holding. Exam Physical Exam Vital Signs: Temp Pulse Resp BP Pulse Ox O2 Del Method 99.1 F H 76 18 146/62 H 95 Room Air 01/30/25 07:48 01/30/25 07:48 01/30/25 07:48 01/30/25 10:32 01/30/25 07:48 01/30/25 07:48 Narrative: CONST- alert, in chair with brace on, elderly female frail CARD- RRR no abnormal heart tones PULM- dimin without wheeze or rhonchi, RA ABD- S/NT, NABS EXTREM- no edema BLE, calves nontender Objective Lab Results 01/29/25 03:56 01/29/25 03:56 Meds Allergies and Active Meds Allergies linagliptin (Tradjenta) Allergy (Unknown, Verified 01/03/25 14:26) Unknown Reaction metformin Allergy (Unknown, Verified 01/03/25 14:26) Unknown Reaction sertraline Allergy (Unknown, Verified 01/03/25 14:26) Unknown Reaction Sulfa (Sulfonamide Antibiotics) Allergy (Unknown, Verified 01/03/25 14:26) Comment:sulfa drugs sulfacetamide Allergy (Unknown, Verified 01/03/25 14:) Unknown Reaction Active Meds: Active Medications Generic Name Dose Route Start Last Admin Trade Name Freq PRN Reason Stop Dose Admin Acetaminophen 500 mg 01/29/25 02:24 Acetaminophen 500 Mg Tablet PO 01/29/26 02:23 Q6H PRN Pain Scale 1 - 3 or fever Alprazolam 0.25 mg 01/29/25 02:20 01/29/25 21:35 Alprazolam 0.25 Mg Tablet PO 07/28/25 02:19 0.25 mg BID PRN Administration anxiety Amiodarone HCl 200 mg 01/29/25 09:00 01/30/25 09:43 Amiodarone 200 Mg Tablet PO 01/29/26 08:59 200 mg DAILY KATHERINE Administration Atorvastatin Calcium 40 mg 01/29/25 22:00 01/29/25 21:35 Atorvastatin 40 Mg Tablet PO 01/29/26 21:59 40 mg HS KATHERINE Administration Dextrose 0 gm 01/29/25 06:27 Dextrose 50% In Water 25 Gm/50 Ml Syringe IV-PUSH 01/29/26 06:26 PRN PRN Hypoglycemia Diltiazem HCl 240 mg 01/29/25 09:00 01/30/25 09:43 Diltiazem Cd.24hr 240 Mg Cap.Er.24h PO 01/29/26 08:59 240 mg DAILY KATHERINE Administration Docusate Sodium 100 mg 01/29/25 02:29 Docusate 100 Mg Capsule PO 01/29/26 02:28 BID PRN Constipation Enoxaparin Sodium 40 mg 01/29/25 10:00 01/30/25 09:43 Enoxaparin 40 Mg/0.4 Ml Syringe SUBCUT 01/29/26 09:59 40 mg DAILY@10 KATHERINE Administration Glucose 0 gm 01/29/25 06:27 Dextrose 40% Gel 15 Gm Tube PO 01/29/26 06:26 PRN PRN Hypoglycemia Hydralazine HCl 10 mg 01/29/25 02:24 Hydralazine 20 Mg/Ml Vial IV-PUSH 01/29/26 02:23 Q4H PRN Hypertension Hydrochlorothiazide 25 mg 01/29/25 09:00 01/30/25 09:43 Hydrochlorothiazide 25 Mg Tablet PO 01/29/26 08:59 25 mg DAILY KATHERINE Administration Hydromorphone HCl 0.25 mg 01/29/25 02:43 01/29/25 16:45 Hydromorphone 0.5 Mg/0.5 Ml Syringe IV-PUSH 0.25 mg Q4H PRN Administration Pain Scale 8 - 10 Ceftriaxone Sodium 1 gm in 50 mls @ 100 mls/hr 01/29/25 06:30 01/30/25 05:29 Rocephin IV 100 mls/hr Q24H KATHERINE Administration Insulin Aspart 0 units 01/29/25 08:00 01/30/25 07:45 Insulin Aspart 300 Units/3 Ml SUBCUT 01/29/26 07:59 2 units TID.WM.HS KATHERINE Administration Protocol Levothyroxine Sodium 25 mcg 01/29/25 06:30 01/30/25 05:29 Levothyroxine 25 Mcg Tablet PO 01/29/26 06:29 25 mcg DAILY@0630 KATHERINE Administration Lisinopril 20 mg 01/29/25 09:00 01/30/25 09:43 Lisinopril 20 Mg Tablet PO 01/29/26 08:59 20 mg DAILY KATHERINE Administration Melatonin 5 mg 01/29/25 03:08 Melatonin 5 Mg Tablet PO 01/29/26 03:07 QHS PRN SLEEP AID Naloxone HCl 0.1 mg 01/29/25 02:24 Naloxone Hcl 0.4 Mg/Ml Vial IV-PUSH 01/29/26 02:23 Q2M PRN Opioid Reversal Pantoprazole Sodium 40 mg 01/29/25 09:00 01/30/25 09:43 Pantoprazole 40 Mg Tablet. PO 01/29/26 08:59 40 mg DAILY KATHERINE Administration Tramadol HCl 50 mg 01/29/25 23:18 01/30/25 06:00 Tramadol 50 Mg Tablet PO 07/28/25 23:17 50 mg Q6H PRN Administration Pain Scale 6 - 10 A&P - Hospitalist Assessment/Plan (1) Burst fracture of T12 vertebra: (2) UTI (urinary tract infection): (3) Fall: (4) Essential hypertension: (5) Type 2 diabetes mellitus with hyperglycemia: (6) Paroxysmal atrial fibrillation: (7) Chronic anticoagulation: Plan Fall T12 burst fracture -Neurosurgery consult appreciated -MRI lumbar spine -T12 burst fracture 25-30% height loss and retropulsion casingmild narrowing at this level, L3-5 mod/sev canal narrowing -therapy evaluations- plan dc to - they can accept -symptom management, utilizing IV Hydromorphone and Tramadol UTI, RULED OUT -culture with bacterial skin contaminants after initially felt infectious. Afebrile no leukocytosis, asymptomatic. DC Ceftriaxone Chronic Conditions 1. Anxiety- alprazolam 2. Afib on chronic anticoagulation- Warfarin on hold- enoxaparin, Amiodarone, diltiazem 3. Hyperlipidemia- atorvastatin 4. HTN- HCTZ, diltiazem, lisinopril. BP reviewed and elevated, probably pain related. PRN Hydralazine 5. T2DM- SSIC, fingerstick. A1c 8.7. Dulaglutide on hold. Glucoses reviewed and not optimally controlled. Will discuss glucoses with patient to improve management. 6. Hypothyroid- levothyroxine 7. GERD- pantoprazole Dr. Alvarez Attestation: Patient was personally seen by me on the day of encounter. I reviewed her history and performed gallegos elements of exam and formulated the plan of care and confirmed the nurse practitioners note above. Plan of care reflects my direct input Documented By: Alexandra Cheney APRN 01/20 12/16 1135 Signed By: <Electronically signed by FROYLAN Cheney> 01/30/25 1524 <Electronically signed by Alec Alvarez MD> 01/30/252111 [facility] Work Phone: 1(408) 709-372603-11-2025 [place] [id number] Hospitalist Progress Note Signed Patient: Fatuma Fair MR#: [id number] : 1945 Acct:[id number] Age/Sex: 80 / F Adm Date: 5 Loc: 4N Room: [address] [place] [address] Type: ADM IN Attending Dr: Alec Alvarez MD Copies to: ~ Date of Service: 01/30/2025 Subjective Subjective Narrative: Patient seen and examined. She is up in chair, wearing TLSO brace. Still endorses pain back. Workedwith therapy today. Charge nurse made aware to haveKilliankuehlers reassess fit as brace pushes up into chin if patient not holding. Exam Physical Exam Vital Signs: Temp Pulse Resp BP Pulse Ox O2 Del Method 99.1 F H 76 18 146/62 H 95 Room Air 01/30/25 07:48 01/30/25 07:48 01/30/25 07:48 01/30/25 10:32 01/30/25 07:48 01/30/25 07:48 Narrative: CONST- alert, in chair with brace on, elderly female frail CARD- RRR no abnormal heart tones PULM- dimin without wheeze or rhonchi, RA ABD- S/NT, NABS EXTREM- no edema BLE, calves nontender Objective Lab Results 01/29/25 03:56 01/29/25 03:56 Meds Allergies and Active Meds Allergies linagliptin (Tradjenta) Allergy (Unknown, Verified 01/03/25 14:26) Unknown Reaction metformin Allergy (Unknown, Verified 01/03/25 14:26) Unknown Reaction sertraline Allergy (Unknown, Verified 01/03/25 14:26) Unknown Reaction Sulfa (Sulfonamide Antibiotics) Allergy (Unknown, Verified 01/03/25 14:26) Comment:sulfa drugs sulfacetamide Allergy (Unknown, Verified 01/03/25 14:26) Unknown Reaction Active Meds: Active Medications Generic Name Dose Route Start Last Admin Trade Name Freq PRN Reason Stop Dose Admin Acetaminophen 500 mg 01/29/25 02:24 Acetaminophen 500 Mg Tablet PO 01/29/26 02:23 Q6H PRN Pain Scale 1 - 3 or fever Alprazolam 0.25 mg 03/10/25 02:20 01/29/25 21:35 Alprazolam 0.25 Mg Tablet PO 07/28/25 02:19 0.25 mg BID PRN Administration anxiety Amiodarone HCl 200 mg 01/29/25 09:00 01/30/25 09:43 Amiodarone 200 Mg Tablet PO 01/29/26 08:59 200 mg DAILY KATHERINE Administration Atorvastatin Calcium 40 mg 01/29/25 22:00 01/29/25 21:35 Atorvastatin 40 Mg Tablet PO 01/29/26 21:59 40 mg HS KATHERINE Administration Dextrose 0 gm 01/29/25 06:27 Dextrose 50% In Water 25 Gm/50 Ml Syringe IV-PUSH 01/29/26 06:26 PRN PRN Hypoglycemia Diltiazem HCl 240 mg 01/29/25 09:00 01/30/25 09:43 Diltiazem Cd.24hr 240 Mg Cap.Er.24h PO 01/29/26 08:59 240 mg DAILY KATHERINE Administration Docusate Sodium 100 mg 01/29/25 02:29 Docusate 100 Mg Capsule PO 01/29/26 02:28 BID PRN Constipation Enoxaparin Sodium 40 mg 01/29/25 10:00 01/30/25 09:43 Enoxaparin 40 Mg/0.4 Ml Syringe SUBCUT 01/29/26 09:59 40 mg DAILY@10 KATHERINE Administration Glucose 0 gm 01/29/25 06:27 Dextrose 40% Gel 15 Gm Tube PO 01/29/26 06:26 PRN PRN Hypoglycemia Hydralazine HCl 10 mg 01/29/25 02:24 Hydralazine 20 Mg/Ml Vial IV-PUSH 01/29/26 02:23 Q4H PRN Hypertension Hydrochlorothiazide 25 mg 01/29/25 09:00 01/30/25 09:43 Hydrochlorothiazide 25 Mg Tablet PO 01/29/26 08:59 25 mg DAILY KATHERINE Administration Hydromorphone HCl 0.25 mg 01/29/25 02:43 01/29/25 16:45 Hydromorphone 0.5 Mg/0.5 Ml Syringe IV-PUSH 0.25 mg Q4H PRN Administration Pain Scale 8 - 10 Ceftriaxone Sodium 1 gm in 50 mls @ 100 mls/hr 01/29/25 06:30 01/30/25 05:29 Rocephin IV 100 mls/hr Q24H KATHERINE Administration Insulin Aspart 0 units 01/29/25 08:00 01/30/25 07:45 Insulin Aspart 300 Units/3 Ml SUBCUT 01/29/26 07:59 2 units TID.WM.HS KATHERINE Administration Protocol Levothyroxine Sodium 25 mcg 01/29/25 06:30 01/30/25 05:29 Levothyroxine 25 Mcg Tablet PO 01/29/26 06:29 25 mcg DAILY@0630 KATHERINE Administration Lisinopril 20 mg 01/29/25 09:00 01/30/25 09:43 Lisinopril 20 Mg Tablet PO 01/29/26 08:59 20 mg DAILY KATHERINE Administration Melatonin 5 mg 01/29/25 03:08 Melatonin 5 Mg Tablet PO 01/29/26 03:07 QHS PRN SLEEP AID Naloxone HCl 0.1 mg 01/29/25 02:24 Naloxone Hcl 0.4 Mg/Ml Vial IV-PUSH 01/29/26 02:23 Q2M PRN Opioid Reversal Pantoprazole Sodium 40 mg 01/29/25 09:00 01/30/25 09:43 Pantoprazole 40 Mg Tablet. PO 01/29/26 08:59 40 mg DAILY KATHERINE Administration Tramadol HCl 50 mg 01/29/25 23:18 01/30/25 06:00 Tramadol 50 Mg Tablet PO 07/28/25 23:17 50 mg Q6H PRN Administration Pain Scale 6 - 10 A&P - Hospitalist Assessment/Plan (1) Burst fracture of T12 vertebra: (2) UTI (urinary tract infection): (3) Fall: (4) Essential hypertension: (5) Type 2 diabetes mellitus with hyperglycemia: (6) Paroxysmal atrial fibrillation: (7) Chronic anticoagulation: Plan Fall T12 burst fracture -Neurosurgery consult appreciated -MRI lumbar spine -T12 burst fracture 25-30% height loss and retropulsion casingmild narrowing at this level, L3-5 mod/sev canal narrowing -therapy evaluations- plan dc to [facility]- they can accept -symptom management, utilizing IV Hydromorphone and Tramadol UTI, RULED OUT -culture with bacterial skin contaminants after initially felt infectious. Afebrile no leukocytosis, asymptomatic. DC Ceftriaxone Chronic Conditions 1. Anxiety- alprazolam 2. Afib on chronic anticoagulation- Warfarin on hold- enoxaparin, Amiodarone, diltiazem 3. Hyperlipidemia- atorvastatin 4. HTN- HCTZ, diltiazem, lisinopril. BP reviewed and elevated, probably pain related. PRN Hydralazine 5. T2DM- SSIC, fingerstick. A1c 8.7. Dulaglutide on hold. Glucoses reviewed and not optimally controlled. Will discuss glucoses with patient to improve management. 6. Hypothyroid- levothyroxine 7. GERD- pantoprazole Dr. Alvarez Attestation: Patient was personally seen by me on the day of encounter. I reviewed her history and performed keyelements of exam and formulated the plan of care and confirmed the nurse practitioners note above. Plan of care reflects my direct input Documented By: Alexandra Cheney APRN 01/20 12/16 1135 Signed By: 01/30/25 1524 01/30/25 [facility]03-11-2025 Progress note Author Donell Rosenbaum [facility] Note Date/Time January 30, 2025 2:1 8pm [facility] [address] [place] [address] Neurosurgery Progress Note Signed Patient: Fatuma Fair MR#: [id number] : 1945 Acct:[id number] Age/Sex: 80 / F Adm Date: 5 Loc: Room: [address] [place] [address] Type: ADM IN Attending Dr: Alec Alvarez MD Copies to: ~ Date of Service: 01/30/2025 Subjective Subjective HPI: Patient seen and examined at bedside on morning rounds this morning. She statesthat her back pain is improving she has no new chief complaint at this time. Exam Physical Exam Vital Signs: Temp Pulse Resp BP Pulse Ox O2 Del Method 98.0 F 76 15 146/62 H 97 Room Air 01/30/25 11:05 01/30/25 11:05 01/30/25 11:05 01/30/25 10:32 01/30/25 11:01/30/25 07:48 Narrative: Patient alert and oriented by 3 Neck supple Affect appropriate Cranial nerves II through XII intact and symmetrical Deltoid bicep tricep and melting supervisor 5/5 bilateral Upper extremity sensory normal to light touch throughout Iliopsoas hamstring quadricep anterior tibial gastrocnemius 5/5 bilateral lower extremities Lower extremity sensory normal light touch throughout Objective Lab Results Most Recent Labs: 01/30/25 11:37: POC Glucose 326 01/30/25 07:39: POC Glucose 249 01/29/25 20:36: POC Glucose 281 01/29/25 17:05: POC Glucose 247 Microbiology Micro: Microbiology 01/29/25 09:25 Clean Void Midstream Urine Culture - Preliminary >100,000 colonies/ml mixed bacterial skin contaminants 1 Day Assessment/Plan Assessment/Plan (1) Burst fracture of T12 vertebra: (2) UTI (urinary tract infection): (3) Fall: (4) Essential hypertension: (5) Type 2 diabetes mellitus with hyperglycemia: Qualifiers: Diabetes mellitus salvage determiner insulin use: without jail use Qualified Code(s): E11.65 - Type 2 diabetes mellitus with hyperglycemia (6) Paroxysmal atrial fibrillation: (7) Chronic anticoagulation: Plan In summary as patient is a 80-year-old female status post fall with T12 burst fracture being treated nonoperatively TLSO back brace. At this time the patient states that she has noticed improvement of back pain. She denies any new symptoms. MRI was independent reviewed by myself demonstrating the T12 fracture. We will obtain x-rays and her TLSO back brace and once they are obtained the patient is stable for discharge which would be the [facility]. All questions were answered to the satisfaction of the patient sheis in agreement the above plan. Documented By: Donell Rosenbaum DO 01/30/25 1415 Signed By: <Electronically signed by Donell Rosenbaum DO> 01/30/[address] [facility] Work Phone: [phone]) 732-942403-11-2025 [place] [address] Neurosurgery Progress Note Signed Patient: Fatuma Fair MR#: [id number] : 1945 Acct:[id number] Age/Sex: 80 / F Adm Date: 5 Loc: 4N Room: [address] [place] [address] Type: ADM IN Attending Dr: Alec Alvarez MD Copies to: ~ Date of Service: 01/30/2025 Subjective Subjective HPI: Patient seen and examined at bedside on morning rounds this morning. She statesthat her back pain is improving she has no new chief complaint at this time. Exam Physical Exam Vital Signs: Temp Pulse Resp BP Pulse Ox O2 Del Method 98.0 F 76 15 146/62 H 97 Room Air 01/30/25 11:05 01/30/25 11:05 01/30/25 11:05 01/30/25 10:32 01/30/25 11:05 01/30/25 07:48 Narrative: Patient alert and oriented by 3 Neck supple Affect appropriate Cranial nerves II through XII intact and symmetrical Deltoid bicep tricep and melting supervisor 5/5 bilateral Upper extremity sensory normal to light touch throughout Iliopsoas hamstring quadricep anterior tibial gastrocnemius 5/5 bilateral lower extremities Lower extremity sensory normal light touch throughout Objective Lab Results Most Recent Labs: 01/30/25 11:37: POC Glucose 326 01/30/25 07:39: POC Glucose 249 01/29/25 20:36: POC Glucose 281 01/29/25 17:05: POC Glucose 247 Microbiology Micro: Microbiology 01/29/25 09:25 Clean Void Midstream Urine Culture - Preliminary >100,000 colonies/ml mixed bacterial skin contaminants 1 Day Assessment/Plan Assessment/Plan (1) Burst fracture of T12 vertebra: (2) UTI (urinary tract infection): (3) Fall: (4) Essential hypertension: (5) Type 2 diabetes mellitus with hyperglycemia: Qualifiers: Diabetes mellitus salvage determiner insulin use: without jail use Qualified Code(s): E11.65 - Type 2 diabetes mellitus with hyperglycemia (6) Paroxysmal atrial fibrillation: (7) Chronic anticoagulation: Plan In summary as patient is a 80-year-old female status post fall with T12 burst fracture being treated nonoperatively TLSO back brace. At this time the patient states that she has noticed improvement of back pain. She denies any new symptoms. MRI was independent reviewed by myself demonstrating the T12 fracture. We will obtain x-rays and her TLSO back brace and once they are obtained the patient is stable for discharge which wouldbe the [facility]. All questions were answered to the satisfaction of the patient sheis in agreement the above plan. Documented By: Donell Rosenbaum DO 01/30/25 1322 Signed By: 01/30/25 1418 [facility]03-10-2025 Progress note Author Alexandra Cheney [facility] Note Date/Time January 29, 2025 4:5 7pm [facility] [address] [place], [place] [id number] Hospitalist Progress Note Signed Patient: Fatuma Fair MR#: [id number] : 1945 Acct:[id number] Age/Sex: 80 / F Adm Date: 5 Loc: 4N Room: [address] [place] [address] Type: ADM IN Attending Dr: Alec Alvarez MD Copies to: ~ Date of Service: 01/29/2025 Subjective Subjective Narrative: Patient seen and examined. Resting in bed, eating lunch. Reports pain, just returned from MRI and pending results. She states she does not think she can gohome. Exam Physical Exam Vital Signs: Temp Pulse Resp BP Pulse Ox O2 Del Method 97.7 F 68 16 174/74 H 96 Room Air 01/29/25 12:43 01/29/25 12:43 01/29/25 12:43 01/29/25 12:43 01/29/25 12:43 01/29/25 12:43 Narrative: CONST- alert, in bed, elderly female frail CARD- RRR no abnormal heart tones PULM- dimin without wheeze or rhonchi, RA ABD- S/NT, NABS EXTREM- no edema BLE, calves nontender Objective Lab Results 01/29/25 03:56 01/29/25 03:56 Meds Allergies and Active Meds Allergies linagliptin (Tradjenta) Allergy (Unknown, Verified 01/03/25 14:26) Unknown Reaction metformin Allergy (Unknown, Verified 01/03/25 14:26) Unknown Reaction sertraline Allergy (Unknown, Verified 01/03/25 14:26) Unknown Reaction Sulfa (Sulfonamide Antibiotics) Allergy (Unknown, Verified 01/03/25 14:26) Comment:sulfa drugs sulfacetamide Allergy (Unknown, Verified 01/03/25 14:26) Unknown Reaction Active Meds: Active Medications Generic Name Dose Route Start Last Admin Trade Name Freq PRN Reason Stop Dose Admin Acetaminophen 500 mg 01/29/25 02:24 Acetaminophen 500 Mg Tablet PO 01/29/26 02:23 Q6H PRN Pain Scale 1 - 3 or fever Alprazolam 0.25 mg 01/29/25 02:20 Alprazolam 0.25 Mg Tablet PO 07/28/25 02:19 BID PRN anxiety Amiodarone HCl 200 mg 01/29/25 09:00 01/29/25 08:02 Amiodarone 200 Mg Tablet PO 01/29/26 08:59 200 mg DAILY KATHERINE Administration Atorvastatin Calcium 40 mg 01/29/25 22:00 Atorvastatin 40 Mg Tablet PO 01/29/26 21:59 HS KATHERINE Dextrose 0 gm 01/29/25 06:27 Dextrose 50% In Water 25 Gm/50 Ml Syringe IV-PUSH 01/29/26 06:26 PRN PRN Hypoglycemia Diltiazem HCl 240 mg 01/29/25 09:00 01/29/25 08:03 Diltiazem Cd.24hr 240 Mg Cap.Er.24h PO 01/29/26 08:59 240 mg DAILY KATHERINE Administration Docusate Sodium 100 mg 01/29/25 02:29 Docusate 100 Mg Capsule PO 01/29/26 02:28 BID PRN Constipation Enoxaparin Sodium 40 mg 01/29/25 10:00 01/29/25 09:30 Enoxaparin 40 Mg/0.4 Ml Syringe SUBCUT 01/29/26 09:59 40 mg DAILY@10 KATHERINE Administration Glucose 0 gm 01/29/25 06:27 Dextrose 40% Gel 15 Gm Tube PO 01/29/26 06:26 PRN PRN Hypoglycemia Hydralazine HCl 10 mg 01/29/25 02:24 Hydralazine 20 Mg/Ml Vial IV-PUSH 01/29/26 02:23 Q4H PRN Hypertension Hydrochlorothiazide 25 mg 01/29/25 09:00 01/29/25 08:02 Hydrochlorothiazide 25 Mg Tablet PO 01/29/26 08:59 25 mg DAILY KATHERINE Administration Hydromorphone HCl 0.25 mg 01/29/25 02:43 01/29/25 12:24 Hydromorphone 0.5 Mg/0.5 Ml Syringe IV-PUSH 0.25 mg Q4H PRN Administration Pain Scale 8 - 10 Ceftriaxone Sodium 1 gm in 50 mls @ 100 mls/hr 01/29/25 06:30 01/29/25 06:42 Rocephin IV 100 mls/hr Q24H KATHERINE Administration Insulin Aspart 0 units 01/29/25 08:00 01/29/25 12:18 Insulin Aspart 300 Units/3 Ml SUBCUT 01/29/26 07:59 2 units TID.WM.HS KATHERINE Administration Protocol Levothyroxine Sodium 25 mcg 01/29/25 06:30 01/29/25 05:50 Levothyroxine 25 Mcg Tablet PO 01/29/26 06:29 25 mcg DAILY@0630 KATHERINE Administration Lisinopril 20 mg 01/29/25 09:00 01/29/25 08:03 Lisinopril 20 Mg Tablet PO 01/29/26 08:59 20 mg DAILY KATHERINE Administration Melatonin 5 mg 01/29/25 03:08 Melatonin 5 Mg Tablet PO 01/29/26 03:07 QHS PRN SLEEP AID Naloxone HCl 0.1 mg 01/29/25 02:24 Naloxone Hcl 0.4 Mg/Ml Vial IV-PUSH 01/29/26 02:23 Q2M PRN Opioid Reversal Pantoprazole Sodium 40 mg 01/29/25 09:00 01/29/25 08:02 Pantoprazole 40 Mg Tablet. PO 01/29/26 08:59 40 mg DAILY KATHERINE Administration A&P - Hospitalist Assessment/Plan (1) Burst fracture of T12 vertebra: (2) UTI (urinary tract infection): (3) Fall: (4) Essential hypertension: (5) Type 2 diabetes mellitus with hyperglycemia: (6) Paroxysmal atrial fibrillation: (7) Chronic anticoagulation: Plan Fall T12 burst fracture -Neurosurgery consult appreciated -MRI lumbar spine -T12 burst fracture 25-30% height loss and retropulsion casingmild narrowing at this level, L3-5 mod/sev canal narrowing -therapy evaluations UTI -Ceftriaxone, follow culture Chronic Conditions 1. Anxiety- alprazolam 2. Afib on chronic anticoagulation- Warfarin on hold- enoxaparin, Amiodarone, diltiazem 3. Hyperlipidemia- atorvastatin 4. HTN- HCTZ, diltiazem, lisinopril 5. T2DM- SSIC, fingerstick. A1c 8.7. Dulaglutide on hold 6. Hypothyroid- levothyroxine 7. GERD- pantoprazole Dr. Alvarez Attestation: Patient was personally seen by me on the day of encounter. I reviewed her history and performed gallegos elements of exam and formulated the plan of care and confirmed the nurse practitioners note above. Plan of care reflects my direct input Documented By: Alexandra Cheney APRN 01/20 1255 Signed By: <Electronically signed by FROYLAN Cheney> 01/29/25 1605 <Electronically signed by Alec Alvarez MD> 01/29/25 2740 [facility] Work Phone: 1(187) 125-459503-10-2025 [place] [address] Hospitalist Progress Note Signed Patient: Fatuma Fair MR#: [id number] : 1945 Acct:[id number] Age/Sex: 80 / F Adm Date: 5 Loc: Room: [address] [place] [address] Type: ADM IN Attending Dr: Alec Alvarez MD Copies to: ~ Date of Service: 01/29/2025 Subjective Subjective Narrative: Patient seen and examined. Resting in bed, eating lunch. Reports pain, just returned from MRI and pending results. She states she does not think she can gohome. Exam Physical Exam Vital Signs: Temp Pulse Resp BP Pulse Ox O2 Del Method 97.7 F 68 16 174/74 H 96 Room Air 01/29/25 12:43 01/29/25 12:43 01/29/25 12:43 01/29/25 12:43 01/29/25 12:43 01/29/25 12:43 Narrative: CONST- alert, in bed, elderly female frail CARD- RRR no abnormal heart tones PULM- dimin without wheeze or rhonchi, RA ABD- S/NT, NABS EXTREM- no edema BLE, calves nontender Objective Lab Results 01/29/25 03:56 01/29/25 03:56 Meds Allergies and Active Meds Allergies linagliptin (Tradjenta) Allergy (Unknown, Verified 01/03/25 14:26) Unknown Reaction metformin Allergy (Unknown, Verified 01/03/25 14:26) Unknown Reaction sertraline Allergy (Unknown, Verified 01/03/25 14:26) Unknown Reaction Sulfa (Sulfonamide Antibiotics) Allergy (Unknown, Verified 01/03/25 14:26) Comment:sulfa drugs sulfacetamide Allergy (Unknown, Verified 01/03/25 14:26) Unknown Reaction Active Meds: Active Medications Generic Name Dose Route Start Last Admin Trade Name Freq PRN Reason Stop Dose Admin Acetaminophen 500 mg 01/29/25 02:24 Acetaminophen 500 Mg Tablet PO 01/29/26 02:23 Q6H PRN Pain Scale 1 - 3 or fever Alprazolam 0.25 mg 01/29/25 02:20 Alprazolam 0.25 Mg Tablet PO 07/28/25 02:19 BID PRN anxiety Amiodarone HCl 200 mg 01/29/25 09:00 01/29/25 08:02 Amiodarone 200 Mg Tablet PO 01/29/26 08:59 200 mg DAILY KATHERINE Administration Atorvastatin Calcium 40 mg 01/29/25 22:00 Atorvastatin 40 Mg Tablet PO 01/29/26 21:59 HS KATHERINE Dextrose 0 gm 01/29/25 06:27 Dextrose 50% In Water 25 Gm/50 Ml Syringe IV-PUSH 01/29/26 06:26 PRN PRN Hypoglycemia Diltiazem HCl 240 mg 01/29/25 09:00 01/29/25 08:03 Diltiazem Cd.24hr 240 Mg Cap.Er.24h PO 01/29/26 08:59 240 mg DAILY KATHERINE Administration Docusate Sodium 100 mg 01/29/25 02:29 Docusate 100 Mg Capsule PO 01/29/26 02:28 BID PRN Constipation Enoxaparin Sodium 40 mg 01/29/25 10:00 01/29/25 09:30 Enoxaparin 40 Mg/0.4 Ml Syringe SUBCUT 01/29/26 09:59 40 mg DAILY@10 KATHERINE Administration Glucose 0 gm 01/29/25 06:27 Dextrose 40% Gel 15 Gm Tube PO 01/29/26 06:26 PRN PRN Hypoglycemia Hydralazine HCl 10 mg 01/29/25 02:24 Hydralazine 20 Mg/Ml Vial IV-PUSH 01/29/26 02:23 Q4H PRN Hypertension Hydrochlorothiazide 25 mg 01/29/25 09:00 01/29/25 08:02 Hydrochlorothiazide 25 Mg Tablet PO 01/29/26 08:59 25 mg DAILY KATHERINE Administration Hydromorphone HCl 0.25 mg 01/29/25 02:43 01/29/25 12:24 Hydromorphone 0.5 Mg/0.5 Ml Syringe IV-PUSH 0.25 mg Q4H PRN Administration Pain Scale 8 - 10 Ceftriaxone Sodium 1 gm in 50 mls @ 100 mls/hr 01/29/25 06:30 01/29/25 06:42 Rocephin IV 100 mls/hr Q24H KATHERINE Administration Insulin Aspart 0 units 01/29/25 08:00 01/29/25 12:18 Insulin Aspart 300 Units/3 Ml SUBCUT 01/29/26 07:59 2 units TID.WM.HS KATHERINE Administration Protocol Levothyroxine Sodium 25 mcg 01/29/25 06:30 01/29/25 05:50 Levothyroxine 25 Mcg Tablet PO 01/29/26 06:29 25 mcg DAILY@0630 KATHERINE Administration Lisinopril 20 mg 01/29/25 09:00 01/29/25 08:03 Lisinopril 20 Mg Tablet PO 01/29/26 08:59 20 mg DAILY KATHERINE Administration Melatonin 5 mg 01/29/25 03:08 Melatonin 5 Mg Tablet PO 01/29/26 03:07 QHS PRN SLEEP AID Naloxone HCl 0.1 mg 01/29/25 02:24 Naloxone Hcl 0.4 Mg/Ml Vial IV-PUSH 01/29/26 02:23 Q2M PRN Opioid Reversal Pantoprazole Sodium 40 mg 01/29/25 09:00 01/29/25 08:02 Pantoprazole 40 Mg Tablet. PO 01/29/26 08:59 40 mg DAILY KATHERINE Administration A&P - Hospitalist Assessment/Plan (1) Burst fracture of T12 vertebra: (2) UTI (urinary tract infection): (3) Fall: (4) Essential hypertension: (5) Type 2 diabetes mellitus with hyperglycemia: (6) Paroxysmal atrial fibrillation: (7) Chronic anticoagulation: Plan Fall T12 burst fracture -Neurosurgery consult appreciated -MRI lumbar spine -T12 burst fracture 25-30% height loss and retropulsion casingmild narrowing at this level, L3-5 mod/sev canal narrowing -therapy evaluations UTI -Ceftriaxone, follow culture Chronic Conditions 1. Anxiety- alprazolam 2. Afib on chronic anticoagulation- Warfarin on hold- enoxaparin, Amiodarone, diltiazem 3. Hyperlipidemia- atorvastatin 4. HTN- HCTZ, diltiazem, lisinopril 5. T2DM- SSIC, fingerstick. A1c 8.7. Dulaglutide on hold 6. Hypothyroid- levothyroxine 7. GERD- pantoprazole Dr. Alvarez Attestation: Patient was personally seen by me on the day of encounter. I reviewed her history and performed keyelements of exam and formulated the plan of care and confirmed the nurse practitioners note above. Plan of care reflects my direct input Documented By: Alexandra Cheney, FROYLAN 01/20 1255 Signed By: 01/29/25 1605 01/29/25 1657 [facility]03-10-2025 Consult note Author Donell Rosenbaum [facility] Note Date/Time January 29, 2025 7:5 3am [facility] [address] [place] [address] Neurosurgery Consult Note Signed Patient: Fatuma Fair MR#: [id number] : 1945 Acct:[id number] Age/Sex: 80 / F Adm Date: 5 Loc: Room: [address] [place] [address] Type: ADM IN Attending Dr: Sandy Salcido MD Copies to: DO Donell Montague DO Ruta Semaskiene, MD~ HPI History of Present Illness Consult Date: 01/29/2025 Requesting Provider: CC: Sandy Salcido MD Reason for Consult: Reported T12 burst fracture History of Present Illness: This patient is a 80-year-old left-handed female that lives at home with her who presented to [facility] from [facility] with reports of having a T12 burst fracture. The patient states that she had sustained a fall yesterday falling backwards without any loss of consciousness. She states that since she has had thoracolumbar back pain which she finds is tolerable. She denies any new lower extremity paresthesias or paresis. She states that she does live at home independently with her and does have a walker that she states she should be using more. She does have a orthopedic issue with her right lower extremity but seems to be on the mend. She was diagnosed having a T12 burst fracture and was subsequently transferred from [facility] to [facility] for further evaluation. [facility] Medical History GERD (gastroesophageal reflux disease) COVID Hypothyroid Type 2 diabetes mellitus with diabetic polyneuropathy Uterine prolapse Urge incontinence Type 2 diabetes mellitus with hyperglycemia Stage 3b chronic kidney disease Right femoral shaft fracture Primary osteoarthritis of right knee Primary osteoarthritis of right hip Primary osteoarthritis of left knee Post-menopausal Paroxysmal atrial fibrillation - s/p DCCV 09/2023 w/ Amiodarone therapy Osteitis pubis Obstructive sleep apnea History of left breast cancer MALIKA (generalized anxiety disorder) Essential tremor Essential hypertension Cataracts, bilateral Surgical History History of surgery (~09/2023) Intramedullary stabilization right femoral shaft History of lumpectomy of left breast History of hysterectomy History of colonoscopy Family History Father Mother Social History Smoking Status: Never smoker Substance Use Type: None Meds Medications and Allergies Allergies linagliptin (Tradjenta) Allergy (Unknown, Verified 01/03/25 14:26) Unknown Reaction metformin Allergy (Unknown, Verified 01/03/25 14:26) Unknown Reaction sertraline Allergy (Unknown, Verified 01/03/25 14:26) Unknown Reaction Sulfa (Sulfonamide Antibiotics) Allergy (Unknown, Verified 01/03/25 14:26) Comment:sulfa drugs sulfacetamide Allergy (Unknown, Verified 01/03/25 14:26) Unknown Reaction Home Medications hydrochlorothiazide 25 mg tablet See Rx Instructions .Route .COMPLEX #90 tabs 01/31/24 [Rx Confirmed 01/29/25] amiodarone 200 mg tablet 200 mg PO DAILY 30 days #30 tabs 02/02/24 [Rx Confirmed 01/29/25] diltiazem HCl 240 mg tablet,extended release 24 hr 240 mg PO DAILY 02/03/24 [History Confirmed 01/29/25] omeprazole 10 mg capsule,delayed release 10 mg PO DAILY 02/03/24 [History Confirmed 01/29/25] atorvastatin 40 mg tablet See Rx Instructions .Route .COMPLEX #90 tabs 02/07/24 [Rx Confirmed 01/29/25] acetaminophen 500 mg tablet (Acetaminophen Pain Relief) 1,000 mg PO TID PRN pain02/14/24 [History Confirmed 01/29/25] docusate sodium 100 mg capsule (Colace) 100 mg PO DAILY PRN STOOL SOFTNER 02/14/24 [History Confirmed 01/29/25] melatonin 5 mg capsule 5 mg PO QHS PRN SLEEP AID 02/14/24 [History Confirmed 01/29/25] miconazole nitrate 2 % topical cream (Antifungal (miconazole)) 1 applic topical DAILY PRN PRN 02/14/24 [History Confirmed 01/29/25] lisinopril 20 mg tablet See Rx Instructions .Route .COMPLEX #90 tabs 04/18/24 [Rx Confirmed 01/29/25] warfarin 2 mg tablet 2 mg PO DAILY #30 tabs 07/18/24 [Rx Confirmed 01/29/25] flash glucose sensor ([employer]Style [place] 2 Sensor kit) #2 ea 10/02/24 [Rx Confirmed 01/03/25] dulaglutide 1.5 mg/0.5 mL subcutaneous pen injector ([employer]) 1.5 mg (0.5 mL) subcut QWEEK 28 days #2 mL 12/06/24 [Rx Confirmed 01/29/25] alprazolam 0.25 mg tablet 0.25 mg PO BID PRN anxiety 30 days #60 tabs 12/25/24 [Rx Confirmed 01/29/25] levothyroxine 25 mcg tablet 25 mcg PO DAILY 30 days #30 tabs 01/03/25 [Rx Confirmed 01/29/25] blood sugar diagnostic (Contour Test Strips) #50 ea 01/24/25 [Rx] blood sugar diagnostic (Contour Test Strips) #50 ea 01/28/25 [Rx] Exam Physical Exam Vital Signs: Temp Pulse Resp BP Pulse Ox O2 Del Method 97.9 F 65 16 210/71 H 96 Room Air 01/29/25 07:32 01/29/25 07:32 01/29/25 07:32 01/29/25 07:32 01/29/25 07:32 01/29/25 07:32 Narrative: Patient alert and oriented by 3 Neck supple Affect appropriate Cranial nerves II through XII intact and symmetrical Deltoid bicep tricep and melting supervisor 5/5 bilateral Upper extremity sensory normal to light touch throughout Iliopsoas hamstring quadricep anterior tibial gastrocnemius 5/5 bilateral lower extremities Lower extremity sensory normal light touch throughout Results - Neurosurgery Lab Results Labs: Laboratory Results - Last 48 hrs. 01/29/25 03:56: Corrected WBC 11.0, Uncorrected WBC Count 11.0, RBC 3.82, Hgb 13.1, Hct 38.2, MCV 100.1 H, MCH 34.2, MCHC 34.2, RDW 13.1, Plt Count 178, MPV 8.9, Neut % (Auto) 85.9, Lymph % (Auto) 6.5, Sibley % (Auto) 7.1, Eos % (Auto) 0.3, Baso % (Auto) 0.2, Nucleat RBC Rel Count 0.0, Neut # (Auto) 9.5 H, Lymph # (Auto) 0.7 L, Sibley # (Auto) 0.8, Eos # (Auto) 0.0, Baso # (Auto) 0.0, PHA Creatinine Clear 48.43, Sodium 133 L, Potassium 4.1, Chloride 100, Carbon Dioxide 25.4, Anion Gap 11.7, BUN 31 H, Creatinine 0.78, Est GFR (CKD-EPI) > 60.0, Glucose 263 H, Calcium 9.1, Magnesium 1.8 L Assessment/Plan (1) Burst fracture of T12 vertebra: (2) UTI (urinary tract infection): (3) Fall: Plan In summary as patient is a 80-year-old left-handed female who presents to [facility] from [facility] with reported T12 burst fracture. At this time the patient did have a CT that was done at [facility] which per the ER report has read as being a T12 burst fracture with minimal retropulsion as well as 20% height loss. I did request for the imaging to be sent over with this patient however it was not. We will work on obtaining the CT that was completed but I have gone ahead and ordered an MRI of her lumbar spine as well to determine the acuity of this fracture. I did briefly discussed varying treatment paradigms with this patient with that of bracing versus a kyphoplasty to which she states she would be more keen on bracing given that her back pain is not intolerable. That being said once the MRI is completed and if it does reveal that an acute fracture we will order her back brace then with standing upright x-rays move towards discharge. All questions were answered to the satisfaction of the patient she is in agreement with the above plan. Documented By: Donell Rosenbaum DO 01/29/25749 Signed By: <Electronically signed by Donell Rosenbaum DO> 01/29/25 [facility] Work Phone: [phone] 473-699803-10-2025 History and physical note Author Sandy Salcido [facility] Note Date/Time January 29, 2025 7:4 4am [facility] [address] [place] [address] Hospitalist H&P Signed Patient: Fatuma Fair MR#: [id number] : 1945 Acct:[id number] Age/Sex: 80 / F Adm Date: 5 Loc: Room: [address] [place] [address] Type: ADM IN Attending Dr: Sandy Salcido MD Copies to: DO Tiffany Montague MD~ HPI DATE OF EXAMINATION: 01/29/25 CHIEF COMPLAINT: Fall and severe back pain HISTORY OF PRESENT ILLNESS: Mrs. Fair is an 80-year-old woman who presents following a fall on concrete earlier today. She has a past medical history of hypothyroidism, type 2 diabetes, chronic kidney disease, osteoarthritis, hip replacement, knee replacementand A- fib treated with warfarin. Patient also has generalized anxiety disorder and hypertension. 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 She says she has been having balance problems for the past while and knows she should be ambulating with a walker, but says she does not feel old enough for that. She felt dizzy and lost balance and fell. She says she may have hit her head just a little bit. CT scan of the head done at first admitting facility was negative for any acute pathology. Patient says she also hit her back and had severe mid back pain. CT imaging showed no pathology in cervical or lumbar spine, but thoracic spine had a T12 burst fracture with 20% loss of height. Patient says the pain at time of impact and initial admission was severe, but is now gone down to 1 out of 10 lying in bed here comfortably. Labs today showed elevated white count at 17.8 K. Urinalysis returned with significant bacteria, leukocyte esterase, and white cells in the urine. Patientappears to have active UTI which may have contributed to her dizziness and balance problems leading to fall. Review of Systems Review of Systems All other systems reviewed & are negative unless noted below or in HPI Constitutional Constitutional: Reports system reviewed and no additional complaints, except as documented, Denies body ache(s) and Denies malaise Eyes Eyes: Reports system reviewed and no additional complaints, except as documented, Denies blurry vision, Denies change in vision and Denies diplopia ENT Ears, Nose, Mouth, and Throat: Reports disequilibrium and Reports vertigo Cardiovascular Cardiovascular: Reports system reviewed and no additional complaints, except as documented, Denies chest pain, Denies chest pain at rest, Denies diaphoresis andDenies leg edema Respiratory Respiratory: Reports system reviewed and no additional complaints, except as documented, Denies chest congestion, Denies cough and Denies pain on inspiration Gastrointestinal Gastrointestinal: Reports system reviewed and no additional complaints, except as documented, Denies nausea and Denies vomiting Neurologic Neurologic: Reports system reviewed and no additional complaints, except as documented, Reports disequilibrium, Denies loss of vision and Reports vertigo [facility] Medical History GERD (gastroesophageal reflux disease) COVID Hypothyroid Type 2 diabetes mellitus with diabetic polyneuropathy Uterine prolapse Urge incontinence Type 2 diabetes mellitus with hyperglycemia Stage 3b chronic kidney disease Right femoral shaft fracture Primary osteoarthritis of right knee Primary osteoarthritis of right hip Primary osteoarthritis of left knee Post-menopausal Paroxysmal atrial fibrillation - s/p DCCV 09/2023 w/ Amiodarone therapy Osteitis pubis Obstructive sleep apnea History of left breast cancer MALIKA (generalized anxiety disorder) Essential tremor Essential hypertension Cataracts, bilateral Surgical History History of surgery (~09/2023) Intramedullary stabilization right femoral shaft History of lumpectomy of left breast History of hysterectomy History of colonoscopy Family History Father Mother Social History Smoking Status: Never smoker Substance Use Type: None Meds Medications and Allergies Allergies linagliptin (Tradjenta) Allergy (Unknown, Verified 01/03/25 14:26) Unknown Reaction metformin Allergy (Unknown, Verified 01/03/25 14:26) Unknown Reaction sertraline Allergy (Unknown, Verified 01/03/25 14:26) Unknown Reaction Sulfa (Sulfonamide Antibiotics) Allergy (Unknown, Verified 01/03/25 14:26) Comment:sulfa drugs sulfacetamide Allergy (Unknown, Verified 01/03/25 14:26) Unknown Reaction Home Medications hydrochlorothiazide 25 mg tablet See Rx Instructions .Route .COMPLEX #90 tabs 01/31/24 [Rx Confirmed 01/29/25] amiodarone 200 mg tablet 200 mg PO DAILY 30 days #30 tabs 02/02/24 [Rx Confirmed 01/29/25] diltiazem HCl 240 mg tablet,extended release 24 hr 240 mg PO DAILY 02/03/24 [History Confirmed 01/29/25] omeprazole 10 mg capsule,delayed release 10 mg PO DAILY 02/03/24 [History Confirmed 01/29/25] atorvastatin 40 mg tablet See Rx Instructions .Route .COMPLEX #90 tabs 02/07/24 [Rx Confirmed 01/29/25] acetaminophen 500 mg tablet (Acetaminophen Pain Relief) 1,000 mg PO TID PRN pain02/14/24 [History Confirmed 01/29/25] docusate sodium 100 mg capsule (Colace) 100 mg PO DAILY PRN STOOL SOFTNER 02/14/24 [History Confirmed 01/29/25] melatonin 5 mg capsule 5 mg PO QHS PRN SLEEP AID 02/14/24 [History Confirmed 01/29/25] miconazole nitrate 2 % topical cream (Antifungal (miconazole)) 1 applic topical DAILY PRN PRN 02/14/24 [History Confirmed 01/29/25] lisinopril 20 mg tablet See Rx Instructions .Route .COMPLEX #90 tabs 04/18/24 [Rx Confirmed 01/29/25] warfarin 2 mg tablet 2 mg PO DAILY #30 tabs 07/18/24 [Rx Confirmed 01/29/25] flash glucose sensor (FreeStyle Chelsea 2 Sensor kit) #2 ea 10/02/24 [Rx Confirmed 01/03/25] dulaglutide 1.5 mg/0.5 mL subcutaneous pen injector (Ruth Kunstadter – [employer]) 1.5 mg (0.5 mL) subcut QWEEK 28 days #2 mL 12/06/24 [Rx Confirmed 01/29/25] alprazolam 0.25 mg tablet 0.25 mg PO BID PRN anxiety 30 days #60 tabs 12/25/24 [Rx Confirmed 01/29/25] levothyroxine 25 mcg tablet 25 mcg PO DAILY 30 days #30 tabs 01/03/25 [Rx Confirmed 01/29/25] blood sugar diagnostic (Contour Test Strips) #50 ea 01/24/25 [Rx] blood sugar diagnostic (Contour Test Strips) #50 ea 01/28/25 [Rx] Exam Physical Exam Vital Signs: Temp Pulse Resp BP Pulse Ox O2 Del Method 98.3 F 63 18 178/77 H 97 Room Air 01/29/25 01:04 01/29/25 01:04 01/29/25 01:04 01/29/25 01:04 01/29/25 01:04 01/29/25 01:04 Narrative: General: Patient is lying in bed in no acute distress. Psych: Alert and oriented x 3 Cardio: Regular rate and rhythm no M/G/R Respiratory: Clear to auscultation bilaterally. Extremities: Normal sensory exam. Patient has normal exam of the upper extremities. Lower extremities are limited in flexion due to pain. She says it hurts her back when she lifts her leg too high. Normal sensory. Neuro: Cranial nerves II through XII intact. Facial movement symmetric, normal sensory exam, hearing intact to finger rub, tongue protrudes midline, extraocular movements normal. Assessment & Plan Assessment/Plan (1) Burst fracture of T12 vertebra: (2) UTI (urinary tract infection): (3) Fall: Plan Patient is an 80-year-old woman who fell on concrete. She had a CT scan of the head showing no acute pathology and she says she barely grazed her head. Neurological exam was normal and she had no residual pain in the head. She did endorse some dizziness which may have led to her fall. Labs today showed elevated white count at 17.8 K. Urinalysis returned with significant bacteria, leukocyte esterase, and white cells in the urine. Patient appears to have active UTI which may have contributed to her dizziness and balance problems leading to fall. Her back is also very painful, specifically mid back. She was found to have a T12 burst fracture on CT. * Neurosurgery consult for T12 burst fracture. They will see her in the morning * Pain control with hydromorphone. * macrobid for UTI * Urine culture ordered * Labs in the morning * Lovenox DVT prophylaxis hold warfarin The patient has been seen and examined. I personally obtained the gallegos and critical portions of the history and physical exam. I reviewed the chart, the team's documentation, and discussed the patient care with the team. I agree with the team's medical decision making and have edited the note to reflect my clinical findings and my assessment and plan. I did discuss with neurosurgery, plan await MRI results, and possible brace. Restart Coumadin if no plan for surgery MD Ila IP vs OBS Justification Based on differential dx, clinical care plan, and risk of adverse events, if untreated, in my clinical judgement this patient requires an acute care setting as: INPATIENT because of an expectation of an over 2 midnight stay. Estimated length of stay (# of days): 3 Documented By: Sandy Salcido MD 01/29/25 0236 Signed By: <Electronically signed by Sandy Salcido MD> 01/29/25 0744 <Electronically signed by Tiffany Guy> 01/29/25 0558 [facility] Work Phone: [phone]) 550-400703-10-2025 [place] [address] Neurosurgery Consult Note Signed Patient: Fatuma Fair MR#: [id number] : 1945 Acct:[id number] Age/Sex: 80 / F Adm Date: 5 Loc: N Room: 9T1799-1 Type: ADM IN Attending Dr: Sandy Salcido MD Copies to: DO Donell Montague, DO Sandy Salcido MD~ HPI History of Present Illness Consult Date: 01/29/2025 Requesting Provider: CC: Sandy Salcido MD Reason for Consult: Reported T12 burst fracture History of Present Illness: This patient is a 80-year-old left-handed female that lives at home with her who presented to [facility] from [facility] with reports of having a T12 burst fracture. The patient states that she had sustained a fall yesterday falling backwards without any loss of consciousness. She states that since she has had thoracolumbar back pain which she finds is tolerable. She denies any new lower extremity paresthesias or paresis. She states that she does live at home independently with her and does have a walker that she states she should be using more. She does have a orthopedic issue with her right lower extremity but seems to be on the mend. She was diagnosed having a T12 burst fracture and was subsequently transferred from [facility] to [facility] for further evaluation. [facility] Medical History GERD (gastroesophageal reflux disease) COVID Hypothyroid Type 2 diabetes mellitus with diabetic polyneuropathy Uterine prolapse Urge incontinence Type 2 diabetes mellitus with hyperglycemia Stage 3b chronic kidney disease Right femoral shaft fracture Primary osteoarthritis of right knee Primary osteoarthritis of right hip Primary osteoarthritis of left knee Post-menopausal Paroxysmal atrial fibrillation - s/p DCCV 09/2023 w/ Amiodarone therapy Osteitis pubis Obstructive sleep apnea History of left breast cancer MALIKA (generalized anxiety disorder) Essential tremor Essential hypertension Cataracts, bilateral Surgical History History of surgery (~09/2023) Intramedullary stabilization right femoral shaft History of lumpectomy of left breast History of hysterectomy History of colonoscopy Family History Father Mother Social History Smoking Status: Never smoker Substance Use Type: None Meds Medications and Allergies Allergies linagliptin (Tradjenta) Allergy (Unknown, Verified 01/03/25 14:26) Unknown Reaction metformin Allergy (Unknown, Verified 01/03/25 14:26) Unknown Reaction sertraline Allergy (Unknown, Verified 01/03/25 14:26) Unknown Reaction Sulfa (Sulfonamide Antibiotics) Allergy (Unknown, Verified 01/03/25 14:26) Comment:sulfa drugs sulfacetamide Allergy (Unknown, Verified 01/03/25 14:26) Unknown Reaction Home Medications hydrochlorothiazide 25 mg tablet See Rx Instructions .Route .COMPLEX #90 tabs 01/31/24 [Rx Confirmed 01/29/25] amiodarone 200 mg tablet 200 mg PO DAILY 30 days #30 tabs 02/02/24 [Rx Confirmed 01/29/25] diltiazem HCl 240 mg tablet,extended release 24 hr 240 mg PO DAILY 02/03/24 [History Confirmed 01/29/25] omeprazole 10 mg capsule,delayed release 10 mg PO DAILY 02/03/24 [History Confirmed 01/29/25] atorvastatin 40 mg tablet See Rx Instructions .Route .COMPLEX #90 tabs 02/07/24 [Rx Confirmed 01/29/25] acetaminophen 500 mg tablet (Acetaminophen Pain Relief) 1,000 mg PO TID PRN pain02/14/24 [History Confirmed 01/29/25] docusate sodium 100 mg capsule (Colace) 100 mg PO DAILY PRN STOOL SOFTNER 02/14/24 [History Confirmed 01/29/25] melatonin 5 mg capsule 5 mg PO QHS PRN SLEEP AID 02/14/24 [History Confirmed 01/29/25] miconazole nitrate 2 % topical cream (Antifungal (miconazole)) 1 applic topical DAILY PRN PRN 02/14/24 [History Confirmed 01/29/25] lisinopril 20 mg tablet See Rx Instructions .Route .COMPLEX #90 tabs 04/18/24 [Rx Confirmed 01/29/25] warfarin 2 mg tablet 2 mg PO DAILY #30 tabs 07/18/24 [Rx Confirmed 01/29/25] flash glucose sensor (FreeStyle Chelsea 2 Sensor kit) #2 ea 10/02/24 [Rx Confirmed 01/03/25] dulaglutide 1.5 mg/0.5 mL subcutaneous pen injector ([employer]ulicity) 1.5 mg (0.5 mL) subcut QWEEK 28 days #2 mL 12/06/24 [Rx Confirmed 01/29/25] alprazolam 0.25 mg tablet 0.25 mg PO BID PRN anxiety 30 days #60 tabs 12/25/24 [Rx Confirmed 01/29/25] levothyroxine 25 mcg tablet 25 mcg PO DAILY 30 days #30 tabs 01/03/25 [Rx Confirmed 01/29/25] blood sugar diagnostic (Contour Test Strips) #50 ea 01/24/25 [Rx] blood sugar diagnostic (Contour Test Strips) #50 ea 01/28/25 [Rx] Exam Physical Exam Vital Signs: Temp Pulse Resp BP Pulse Ox O2 Del Method 97.9 F 65 16 210/71 H 96 Room Air 01/29/25 07:32 01/29/25 07:32 01/29/25 07:32 01/29/25 07:32 01/29/25 07:32 01/29/25 07:32 Narrative: Patient alert and oriented by 3 Neck supple Affect appropriate Cranial nerves II through XII intact and symmetrical Deltoid bicep tricep and melting supervisor 5/5 bilateral Upper extremity sensory normal to light touch throughout Iliopsoas hamstring quadricep anterior tibial gastrocnemius 5/5 bilateral lower extremities Lower extremity sensory normal light touch throughout Results - Neurosurgery Lab Results Labs: Laboratory Results - Last 48 hrs. 01/29/25 03:56: Corrected WBC 11.0, Uncorrected WBC Count 11.0, RBC 3.82, Hgb 13.1, Hct 38.2, MCV 100.1 H, MCH 34.2, MCHC 34.2, RDW 13.1, Plt Count 178, MPV 8.9, Neut % (Auto) 85.9, Lymph % (Auto) 6.5, Sibley % (Auto) 7.1, Eos % (Auto) 0.3, Baso % (Auto) 0.2, Nucleat RBC Rel Count 0.0, Neut # (Auto) 9.5 H, Lymph # (Auto) 0.7 L, Sibley # (Auto) 0.8, Eos # (Auto) 0.0, Baso # (Auto) 0.0, PHA Creatinine Clear 48.43, Sodium 133 L, Potassium 4.1, Chloride 100, Carbon Dioxide 25.4, Anion Gap 11.7, BUN 31 H, Creatinine 0.78, Est GFR (CKD-EPI) > 60.0, Glucose 263 H, Calcium 9.1, Magnesium 1.8 L Assessment/Plan (1) Burst fracture of T12 vertebra: (2) UTI (urinary tract infection): (3) Fall: Plan In summary as patient is a 80-year-old left-handed female who presents to [facility] from [facility] with reported T12 burst fracture. At this time the patient did have a CT that was done at [facility] which per the ER report has read as being a T12 burst fracture with minimal retropulsion as well as 20% height loss. I did request for the imaging to be sent over with this patient however it was not. We will work on obtaining the CT that was completed but I have gone ahead and ordered an MRI of her lumbar spine as well to determine the acuity of this fracture. I did briefly discussed varying treatment paradigms with thispatient with that of bracing versus a kyphoplasty to which she states she would be more keen on bracing given that her back pain is not intolerable. That being said once the MRI is completed and if it does reveal that an acute fracture we will order her back brace then with standing upright x-rays move towards discharge. All questions were answered to the satisfaction of the patient she is in agreement with the above plan. Documented By: Donell Rosenbaum DO 01/29/25 075 Signed By: 01/29/25 0753 [facility]03-10-2025 [place] [address] Hospitalist H&P Signed Patient: Fatuma Fair MR#: [id number] : 1945 Acct:[id number] Age/Sex: 80 / F Adm Date: 5 Loc: Room: [address] [place] [address] Type: ADM IN Attending Dr: Sandy Salcido MD Copies to: DO Tiffany Montague MD~ HPI DATE OF EXAMINATION: 01/29/25 CHIEF COMPLAINT: Fall and severe back pain HISTORY OF PRESENT ILLNESS: Mrs. Fair is an 80-year-old woman who presents following a fall on concrete earlier today. She has a past medical history of hypothyroidism, type 2 diabetes, chronic kidney disease, osteoarthritis, hip replacement, knee replacementand A-fib treated with warfarin. Patient also has generalized anxiety disorder and hypertension. 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 She says she has been having balance problems for the past while and knows she should be ambulating with a walker, but says she does not feel old enough for that. She felt dizzy and lost balance and fell. She says she may have hit her head just a little bit. CT scan of the head done at first admitting facility was negative for any acute pathology. Patient says she also hit her back and had severe mid back pain. CT imaging showed no pathology in cervical or lumbar spine, but thoracic spine had a T12 burst fracture with 20% loss of height. Patient says the pain at time of impact and initial admission was severe, but is now gone down to 1 out of 10 lying in bed here comfortably. Labs today showed elevated white count at 17.8 K. Urinalysis returned with significant bacteria, leukocyte esterase, and white cells in the urine. Patientappears to have active UTI which may have contributed to her dizziness and balance problems leading to fall. Review of Systems Review of Systems All other systems reviewed & are negative unless noted below or in HPI Constitutional Constitutional: Reports system reviewed and no additional complaints, except as documented, Denies body ache(s) and Denies malaise Eyes Eyes: Reports system reviewed and no additional complaints, except as documented, Denies blurry vision, Denies change in vision and Denies diplopia ENT Ears, Nose, Mouth, and Throat: Reports disequilibrium and Reports vertigo Cardiovascular Cardiovascular: Reports system reviewed and no additional complaints, except as documented, Denies chest pain, Denies chest pain at rest, Denies diaphoresis andDenies leg edema Respiratory Respiratory: Reports system reviewed and no additional complaints, except as documented, Denies chest congestion, Denies cough and Denies pain on inspiration Gastrointestinal Gastrointestinal: Reports system reviewed and no additional complaints, except as documented, Denies nausea and Denies vomiting Neurologic Neurologic: Reports system reviewed and no additional complaints, except as documented, Reports disequilibrium, Denies loss of vision and Reports vertigo [facility] Medical History GERD (gastroesophageal reflux disease) COVID Hypothyroid Type 2 diabetes mellitus with diabetic polyneuropathy Uterine prolapse Urge incontinence Type 2 diabetes mellitus with hyperglycemia Stage 3b chronic kidney disease Right femoral shaft fracture Primary osteoarthritis of right knee Primary osteoarthritis of right hip Primary osteoarthritis of left knee Post-menopausal Paroxysmal atrial fibrillation - s/p DCCV 09/2023 w/ Amiodarone therapy Osteitis pubis Obstructive sleep apnea History of left breast cancer MALIKA (generalized anxiety disorder) Essential tremor Essential hypertension Cataracts, bilateral Surgical History History of surgery (~09/2023) Intramedullary stabilization right femoral shaft History of lumpectomy of left breast History of hysterectomy History of colonoscopy Family History Father Mother Social History Smoking Status: Never smoker Substance Use Type: None Meds Medications and Allergies Allergies linagliptin (Tradjenta) Allergy (Unknown, Verified 01/03/25 14:26) Unknown Reaction metformin Allergy (Unknown, Verified 01/03/25 14:26) Unknown Reaction sertraline Allergy (Unknown, Verified 01/03/25 14:26) Unknown Reaction Sulfa (Sulfonamide Antibiotics) Allergy (Unknown, Verified 01/03/25 14:26) Comment:sulfa drugs sulfacetamide Allergy (Unknown, Verified 01/03/25 14:26) Unknown Reaction Home Medications hydrochlorothiazide 25 mg tablet See Rx Instructions .Route .COMPLEX #90 tabs 01/31/24 [Rx Confirmed 01/29/25] amiodarone 200 mg tablet 200 mg PO DAILY 30 days #30 tabs 02/02/24 [Rx Confirmed 01/29/25] diltiazem HCl 240 mg tablet,extended release 24 hr 240 mg PO DAILY 02/03/24 [History Confirmed 01/29/25] omeprazole 10 mg capsule,delayed release 10 mg PO DAILY 02/03/24 [History Confirmed 01/29/25] atorvastatin 40 mg tablet See Rx Instructions .Route .COMPLEX #90 tabs 02/07/24 [Rx Confirmed 01/29/25] acetaminophen 500 mg tablet (Acetaminophen Pain Relief) 1,000 mg PO TID PRN pain02/14/24 [History Confirmed 01/29/25] docusate sodium 100 mg capsule (Colace) 100 mg PO DAILY PRN STOOL SOFTNER 02/14/24 [History Confirmed 01/29/25] melatonin 5 mg capsule 5 mg PO QHS PRN SLEEP AID 02/14/24 [History Confirmed 01/29/25] miconazole nitrate 2 % topical cream (Antifungal (miconazole)) 1 applic topical DAILY PRN PRN 02/14/24 [History Confirmed 01/29/25] lisinopril 20 mg tablet See Rx Instructions .Route .COMPLEX #90 tabs 04/18/24 [Rx Confirmed 01/29/25] warfarin 2 mg tablet 2 mg PO DAILY #30 tabs 07/18/24 [Rx Confirmed 01/29/25] flash glucose sensor (FreeStyle [place] 2 Sensor kit) #2 ea 10/02/24 [Rx Confirmed 01/03/25] dulaglutide 1.5 mg/0.5 mL subcutaneous pen injector (Trulicity) 1.5 mg (0.5 mL) subcut QWEEK 28 days #2 mL 12/06/24 [Rx Confirmed 01/29/25] alprazolam 0.25 mg tablet 0.25 mg PO BID PRN anxiety 30 days #60 tabs 12/25/24 [Rx Confirmed 01/29/25] levothyroxine 25 mcg tablet 25 mcg PO DAILY 30 days #30 tabs 01/03/25 [Rx Confirmed 01/29/25] blood sugar diagnostic (Contour Test Strips) #50 ea 01/24/25 [Rx] blood sugar diagnostic (Contour Test Strips) #50 ea 01/28/25 [Rx] Exam Physical Exam Vital Signs: Temp Pulse Resp BP Pulse Ox O2 Del Method 98.3 F 63 18 178/77 H 97 Room Air 01/29/25 01:04 01/29/25 01:04 01/29/25 01:04 01/29/25 01:04 01/29/25 01:04 01/29/25 01:04 Narrative: General: Patient is lying in bed in no acute distress. Psych: Alert and oriented x 3 Cardio: Regular rate and rhythm no M/G/R Respiratory: Clear to auscultation bilaterally. Extremities: Normal sensory exam. Patient has normal exam of the upper extremities. Lower extremities are limited in flexion due to pain. She says it hurts her back when she lifts her leg too high. Normal sensory. Neuro: Cranial nerves II through XII intact. Facial movement symmetric, normal sensory exam, hearing intact to finger rub, tongue protrudes midline, extraocular movements normal. Assessment & Plan Assessment/Plan (1) Burst fracture of T12 vertebra: (2) UTI (urinary tract infection): (3) Fall: Plan Patient is an 80-year-old woman who fell on concrete. She had a CT scan of the head showing no acute pathology and she says she barely grazed her head. Neurological exam was normal and she had no residual pain in the head. She did endorse some dizziness which may have led to her fall. Labs today showed elevated white count at 17.8 K. Urinalysis returned with significant bacteria, leukocyte esterase, and white cells in the urine. Patient appears to have active UTI which may have contributed to her dizziness and balance problems leading to fall. Her back is also very painful, specifically mid back. She was found to have a T12 burst fracture on CT. * Neurosurgery consult for T12 burst fracture. They will see her in the morning * Pain control with hydromorphone. * macrobid for UTI * Urine culture ordered * Labs in the morning * Lovenox DVT prophylaxis hold warfarin The patient has been seen and examined. I personally obtained the gallegos and critical portions of the history and physical exam. I reviewed the chart, the team's documentation, and discussed the patientcare with the team. I agree with the team's medical decision making and have edited the note to reflect my clinical findings and my assessment and plan. I did discuss with neurosurgery, plan await MRI results, and possible brace. Restart Coumadin if noplan for surgery MD Ila IP vs OBS Justification Based on differential dx, clinical care plan, and risk of adverse events, if untreated, in my clinical judgement this patient requires an acute care setting as: INPATIENT because of an expectation ofan over 2 midnight stay. Estimated length of stay (# of days): 3 Documented By: Sandy Salcido MD 01/29/25 0236 Signed By: 01/29/25 0744 01/29/25 0558 [facility]02-12-2025 Evaluation note* Diagnosis Onset Date Resolution Status Admit Date Essential hypertension acute Fe [facility] 2024 1:54pm GERD (gastroesophageal reflu x disease) acute January 03 025 1:54pm Hypothyroid acute December 1:54pm Paroxysmal atrial fibrillation acute January 03, 2025 1:54pm Stage 3b chronic kidney disease acut e January 03, 2025 1:54pm Type 2 diabetes mellitus wit h diabetic polyneuropathy acute January 03, 2025 1:54pm Type 2 diabetes mellitus wit h hyperglycemia acute January 03 025 1:54pm Burst fracture of T12 vertebra acute January 29, 2025 12:42am Chronic anticoagulation acute [facility] 2024 12:42am Essential hypertension acute [facility] 2024 12:42am Fall acute January 29 12:42am Paroxysmal atrial fibrillation acute January 29, 2025 12:42am Type 2 diabetes mellitus wit h hyperglycemia acute January 29, 2025 12:42am UTI (urinary tract infection) acute January 29, 2025 12:42am [facility] Work Phone: 1(119) 481-197702-12-2025 Evaluation note* Diagnosis Onset Date Resolution Status Admit Date Essential hypertension acute Fe 2024 1:54pm GERD (gastroesophageal reflu x disease) acute January 03 1:54pm Hypothyroid acute December 1:54pm Paroxysmal atrial fibrillation acute January 03, 2025 1:54pm Stage 3b chronic kidney disease acut e January 03, 2025 1:54pm Type 2 diabetes mellitus wit h diabetic polyneuropathy acute January 03, 2025 1:54pm Type 2 diabetes mellitus wit h hyperglycemia acute January 03 1:54pm Burst fracture of T12 vertebra acute January 29, 2025 12:42am Chronic anticoagulation acute [facility] 2024 12:42am Essential hypertension acute [facility] 2024 12:42am Paroxysmal atrial fibrillation acute January 29, 2025 12:42am Type 2 diabetes mellitus wit h hyperglycemia acute January 29, 2025 12:42am Fall resolved January 29 12:42am UTI (urinary tract infection) delete d January 29, 2025 12:42am [facility] Work Phone: 1(472) 857-657202-12-2025 Evaluation note* Diagnosis Onset Date Resolution Status Admit Date Essential hypertension acute Fe 2024 1:54pm GERD (gastroesophageal reflu x disease) acute January 03 1:54pm Hypothyroid acute December 1:54pm Paroxysmal atrial fibrillation acute January 03, 2025 1:54pm Stage 3b chronic kidney disease acut e January 03, 2025 1:54pm Type 2 diabetes mellitus wit h diabetic polyneuropathy acute January 03, 2025 1:54pm Type 2 diabetes mellitus wit h hyperglycemia acute January 03 1:54pm Burst fracture of T12 vertebra acute January 29, 2025 12:42am Chronic anticoagulation acute [facility] 2024 12:42am Essential hypertension acute [facility] 2024 12:42am Paroxysmal atrial fibrillation acute January 29, 2025 12:42am Type 2 diabetes mellitus wit h hyperglycemia acute January 29, 2025 12:42am Fall resolved January 29 12:42am UTI (urinary tract infection) delete d January 29, 2025 12:42am Burst fracture of T12 vertebra acute February 19, 2025 1:38pm [facility] Work Phone: 1(781) 622-345111-25-2024 Evaluation note* Diagnosis Onset Date Resolution Status Admit Date Essential hypertension acute No [id number] 2:02pm GERD (gastroesophageal reflu x disease) acute October 16, 2 024 2:02pm Hypothyroid acute September 2:02pm Paroxysmal atrial fibrillation acute October 16, 2024 2:02pm Stage 3b chronic kidney disease acut e October 16, 2024 2:02pm Type 2 diabetes mellitus wit h diabetic polyneuropathy acute October 16, 2024 2:02pm Type 2 diabetes mellitus wit h hyperglycemia acute October 16, 024 2:02pm Essential hypertension acute Fe 2024 1:54pm GERD (gastroesophageal reflu x disease) acute January 03, 025 1:54pm Hypothyroid acute December 1:54pm Paroxysmal atrial fibrillation acute January 03, 2025 1:54pm Stage 3b chronic kidney disease acut e January 03, 2025 1:54pm Type 2 diabetes mellitus wit h diabetic polyneuropathy acute January 03, 2025 1:54pm Type 2 diabetes mellitus wit h hyperglycemia acute January 03 2 025 1:54pm [facility] Work Phone: 1(762) 411-634709-20-2024 [id number] age, female, CHF, CAD/vascular disease, diabetes Currently on EKG patient is in sinus rhythm Continue amiodarone 200 mg a day and Cardizem 240 daily she remains on Eliquis anticoagulation without any bleeding tendenciesUnMetroHealth Parma [facility] Center09-20-2024 NoteAmiodarone Monitoring: CBC annually-stable ALT, AST annually-stable TSH annually-stable Cxray annually-ordered Dilated eye exam Annually- recently completed per pt PFT Annually- ordered CT chest Consideration EKG Annually and PRNUnMetroHealth Parma Medical Center09-20-2024 Note Hypertension is unchanged. Currently blood pressure is well-controlled 130/68 continue Cardizem, hydrochlorothiazide and lisinopril Continue current treatment regimen. Continue current medications. Blood pressure will be reassessed at the next regular appointment. Renal function stableUnMetroHealth Parma Medical Center09-20-2024 NoteCoronary artery disease is unchanged. No concerning symptoms at this time Remains on goal-directed medical therapy of Lipitor no aspirin in light of Eliquis, lisinopril. Continue current treatment regimen. Continue current medications. Cardiac status will be reassessed in 6 months.[facility]09-20-2024 NoteNYHC II currently euvolemic without exacerbation No concerning symptoms today Continue GDMT-currently on lisinopril and hydrochlorothiazide no Diuretic therapy currently required Monitor daily weights, I&O, fluid restriction 1.5-2L/day, renal function and electrolytes-[facility]09-20-2024 NoteNo concerning symptoms Will monitor with routine echocardiogram Discussed with patient to call office for any chest pain, shortness of breath, palpitations, syncope and she voiced understanding.[facility]09-20-2024 NotePt here for a six month follow up. Pt denies sob, chest pain, palpatations Review of Systems Cardiovascular: Positive for leg swelling. Hematologic/Lymphatic: Bruises/bleeds easily. Musculoskeletal: Positive for arthritis and joint pain. Neurological: Positive for loss of balance and weakness. All other systems reviewed and are negative.[facility] 08-11-2024 NoteUTP CARDIOLOGY PROGRESS NOTE HPI: Fatuma Fair is a 79 y.o. female here for [...] SR ECG 11/23/22 SR 70bpm 09/14/23 dr. spivey HPI: Fatuma Fair is a 78 y.o. year old with [...] sounds. Abdominal: General: Pj (more content not included)...[facility] 05-16-2024 History of Present illness Narrative* Tutu Unger DPM - 05/16/2024 2:30 PM EDT Reason for [...] will have to referher out to local melting supervisor/ crab catcher. Patient was advised due to multiple comorbidities [...] signs of skin breakdown. documented in this encounterSaint Louis University [id number] NoteUT Electrophysiology Consult Note: Reason for visit: [...] SR ECG 11/23/22 SR 70bpm 09/14/23 dr. spivey HPI: Fatuma Fair is a 79 y.o. 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 Cardioverted late September at [facility]. Continue Amiodarone and Eliquis Nov, Acute blood [...] use, the patient reduces the risk for AL, CVA, HTN, cardiac dysrhythmias and sudden cardiac [...] and structure, left thigh (ICD-10 - M85.852) [employer] Other 01-02-2024 NotePatient here for follow up cardioversion on 10/21/2023. Doing very well. Denies chest pain, SOB, palpitations, lightheadedness/syncope, and bleeding on Eliquis. Review of Systems Cardiovascular: Positive for leg swelling. Hematologic/Lymphatic: Bruises/bleeds easily. Musculoskeletal: Positive for arthritis and joint pain. Neurological: Positive for loss of balance and weakness. All other systems reviewed and are negative.[facility] 11-23-2023 NoteUT Electrophysiology Consult Note: Reason for visit: Afib s/p DCCV 10/21/23 on amiodarone 11/23/22: She is here s/p DCCV on amiodarone She hasnt noticed a difference being in SR ECG 11/23/22 SR 70bpm 09/14/23 dr. spivey HPI: Fatuma Fair is a 78 y.o. 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 Oct, Other postprocedural complications and disorders of genitourinary system (ICD-10 - N99.89) Oct, Other retention of urine (ICD-10 - R33.8) PVR > 1000 after which baldwin was placed. 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 Today was in NSR Oct, Acute cystitis without hematuria (ICD-10 - N30.00) Empirically treating w/ Urine C/S pending PVR 60[facility] [employer] Other 11-30-2023 NoteDIRECT CARDIOVERSION PROCEDURE NOTE Date: 10/21/2023. Type of procedure: DC Cardioversion. Performed by: Santiago Spivey MD DISPENSING OPTICIAN APPRENTICE: Dr Gela Nowak Informed consent: Signed by [...] Plan: Continue anticoagulation and consider ablation. 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 Use of blood products discussed with patient who consented to blood products. Plan discussed with attending. 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 No acute bleeding at this time Sep, [...] Other retention of urine (ICD-10 - R33.8) Baldwin in place. Urinary retention likely cause of pyelonephritis Opiates likely cause of urinary retention Complete antibiotics, recheck urine and if clear will remove baldwin [employer] Other 11-16-2023 Evaluation note* Encounter Date Diagnosis Assessment Notes Treatment Notes Treatment Clinical Notes Sep, Acute pyelonephritis (ICD-10 - N10) Push fluids, monitor response, if no improvement would treat parenterally. Keep baldwin in place for now. Sep, Stage 3b [...] 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 No ongoing bleeding complications Sep, Type 2 [...] Other retention of urine (ICD-10 - R33.8) Baldwin placed for now w/ plan to d/c [...] use, the patient reduces the risk for AL, CVA, HTN, cardiac dysrhythmias and sudden cardiac deaths.The patient is also aware of the association between SHIRA and morning headaches, daytime somnolence, fatigue and obesity, which also has been improved with continued use.The patient is compliant with treatment, wearing the equipment every night for greater than 4 hours.The patient is instructed to continue use of the CPAP for SHIRA treatment. [employer] Other 11-09-2023 Evaluation note* Encounter Date Diagnosis Assessment Notes Treatment Notes Treatment Clinical Notes Sep, Acute blood loss anemia (ICD-10 - D62) [employer] Other 11-09-2023 Evaluation note* Encounter Date Diagnosis Assessment Notes Treatment Notes Treatment Clinical Notes Sep, MALIKA (generalized anxiety disorder) (ICD-10 - F41.1) [employer] Other 11-08-2023 NotePROCEDURE: XR ABDOMEN (KUB) (SINGLE [...] Jarvis MD 09/29/[address] [facility] NotePROCEDURE: XR FEMUR RIGHT (MIN 2 VIEWS) [...] Signed by: Shereen Cunha MD 09/25/23 Final resultSWoodland Heights Medical Center11-01-2023 Evaluation note* Encounter Date Diagnosis Assessment Notes Treatment Notes Treatment Clinical Notes Sep, COVID (ICD-10 - U07.1) [facility] Other 10-24-2023 NoteUT Electrophysiology Consult Note: Reason for visit: Afib HPI: Fatuma Fair is a 78 y.o. year old with [...] Peripheral Pulses Radial P (more content not included)...[facility] 08-30-2023 Evaluation note* Encounter Date Diagnosis Assessment [...] test for COVID and call w/ results [employer] Other 09-20-2023 Evaluation note* Encounter Date Diagnosis Assessment Notes Treatment Notes Treatment Clinical Notes Jul, Type 2 diabetes mellitus with hyperglycemia, without long-term current use of insulin (ICD-10 - E11.65) [employer] Other 08-28-2023 Evaluation note* Encounter Date Diagnosis Assessment Notes Treatment Notes Treatment Clinical Notes Jun, Preop exam for internal medicine (ICD-10 - Z01.818) Mrs. Fair has been seen and examined for her [...] Continue GERD precautions Continue PPI w/o interruption [employer] Other 08-25-2023 Evaluation note* Encounter Date Diagnosis Assessment Notes Treatment Notes Treatment Clinical Notes Jun, Persistent atrial fibrillation (ICD-10 - I48.19) [employer] Other 08-04-2023 Evaluation note* Encounter Date Diagnosis Assessment Notes Treatment Notes Treatment Clinical Notes Jun, Dysuria (ICD-10 - R30.0) [employer] Other 07-31-2023 Evaluation note* Encounter Date Diagnosis Assessment Notes Treatment Notes Treatment Clinical Notes May, Dysuria (ICD-10 - R30.0) [employer] Other 06-20-2023 Evaluation note* Encounter Date Diagnosis [...] use, the patient reduces the risk for AL, CVA, HTN, cardiac dysrhythmias and sudden cardiac [...] E05.90) Recheck TSH, FT4, TT3 and TSI [employer] Other 05-30-2023 Evaluation note* Encounter Date Diagnosis [...] current use of insulin (ICD-10 - E11.65) [employer] Other 05-15-2023 Evaluation note* Encounter Date Diagnosis Assessment Notes Treatment Notes Treatment Clinical Notes March, MALIKA (generalized anxiety disorder) (ICD-10 - F41.1) [employer] Other 03-22-2023 Evaluation note* Encounter Date Diagnosis Assessment Notes Treatment Notes Treatment Clinical Notes Jan, Dysuria (ICD-10 - R30.0) [employer] Other 03-20-2023 Evaluation note* Encounter Date Diagnosis Assessment Notes Treatment Notes Treatment Clinical Notes Jan, Abnormal TSH (ICD-10 - R79.89) Jan, Thyrotoxicosis without thyroid storm, unspecified thyrotoxicosis type (ICD-10 - E05.90) [employer] Other 03-20-2023 Evaluation note* Encounter Date Diagnosis [...] 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 No bleeding complications Refer to Cardiology for [...] High risk medication use (ICD-10 - Z79.899) [employer] Other 03-13-2023 Evaluation note* Encounter Date Diagnosis Assessment Notes Treatment Notes Treatment Clinical Notes Jan, Persistent atrial fibrillation (ICD-10 - I48.19) [employer] Other 03-07-2023 Evaluation note* Encounter Date Diagnosis [...] M25.551) Ice, heat and Voltaren Gel. 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 [employer] Other [id number] NotePROCEDURE: XR KNEE RT 3V HISTORY: Idiopathic osteoarthritis ; chronic right knee pain COMPARISON: None. FINDINGS: BONES:Complete loss of the medial joint space with [id number] articulation prominent periarticular degenerative osteophytes. Moderate narrowing of the anterior compartment. No appreciable narrowing of the lateral joint space. SOFT TISSUES:Calcium deposition within the lateral meniscus. EFFUSION:None visible. OTHER: Negative. IMPRESSION: 1. Marked degenerative joint disease predominantly involving the medial compartment. 2. No acute bone abnormality. Electronically authenticated by: CHING MAHMOOD Date: 2022-10-01 08:09[facility]Evaluation noteNo InformationNort BareedEE Other Evaluation note* Diagnosis Onset Date Resolution [...] noneactive Screening mammogram for breast cancer noneactive [facility] Work Phone: Evaluation note* Diagnosis Onset Date [...] acute Screening mammogram for breast cancer noneactive [facility] Work Phone: Evaluation note* Diagnosis Onset Date Resolution Status Essential hypertension acute Hyperlipidemia, mixed acute Paroxysmal atrial fibrillation acute Stage 3b chronic kidney disease acute Subclinical hyperthyroidism acute Type 2 diabetes mellitus with diabetic polyneuropathy acute Type 2 diabetes mellitus with hyperglycemia acute [facility] Work Phone: Evaluation note* Diagnosis Onset Date Resolution Status COVID acute Essential hypertension acute GERD (gastroesophageal reflux disease) acute Hyperlipidemia, mixed acute Hypothyroid acute Paroxysmal atrial fibrillation acute Stage 3b chronic kidney disease acute Type 2 diabetes mellitus with diabetic polyneuropathy acute Type 2 diabetes mellitus with hyperglycemia acute [facility] Work Phone: Evaluation note* Diagnosis Onset Date Resolution Status COVID acute Essential hypertension acute GERD (gastroesophageal reflux disease) acute Hypothyroid acute Paroxysmal atrial fibrillation acute Stage 3b chronic kidney disease acute Type 2 diabetes mellitus with diabetic polyneuropathy acute Type 2 diabetes mellitus with hyperglycemia acute [facility] Work Phone: Evaluation note* Diagnosis Pain of [...] length (acquired) documented in this encounter [facility] general Narrative - Reported* Type Description Date [...] 2012 Surgical History CATARACTS Surgical History HYSTERECTOMY [employer] Other History general Narrative - Reported* Type [...] 2012 Surgical History CATARACTS Surgical History HYSTERECTOMY Hospitalization History see surgical history [employer] Other History general Narrative - Reported* Type [...] shaft 09/2023 Hospitalization History see surgical history [employer] Other Reason for referral (narrative)No reason for referral information availablePomerene Hospital Work Phone: Summary Purpose Family History Relationship Condition Age at Onset Recorded Date/T jaime father Unknown Not Specified Unknown Relationship Condition Age at Onset Recorded Date/T jaime father Unknown mother Unknown Advance Directives Advance Directive Response Recorded Date/ Time Advance Directives No December 15, 2023 10:05am Advance Directive Response Recorded Date/ Time Advance Directives No December 15, 2023 9:05am Documents on File Type Date Recorded Patient Safety Attendant Expl anation ACP-Advance Directive 10/07/2023 3:40 AM Date Activated Date Inactivated Comments 09/25/2023 2:16 AM 09/30/2023 2:39 PM Date Activated Date Inactivated Comments 01/20/2013 3:36 PM 01/20/2013 6:36 PM Reason for Referral Reason New onset atrial fib rillation Diagnosis 1 Persistent atrial fi brillation (I48.19) Referral Organization [facility] geovanni Referring Provider First Name Harsha Referring Provider Last Name Kamran Referring Provider Specialty Internal Me dicine Referred Organization [facility] Referred Provider Mirian Beyer Referred Address [address], [place],[address] Referred Provider Specialty Cardiology Referral Priority Routine [...] Complaint and Reason for Visit Chief Complaint Usp D/C Fol low Up Amb Documentation Medicare [...] 16 2:02pm GERD (gastroesophageal reflux disease) N ovember 2023 2:02pm Hypothyroid October 16, 2024 2:02pm Paroxysmal atrial fibrillation October 16, 2024 2:02pm Stage 3b chronic kidney disease October 16, 2024 2:02pm Type 2 diabetes mellitus with diabetic p olyneuropathy October 16, 2024 2:02pm Type 2 diabetes mellitus with hyperglyce jose October 16, 2024 2:02pm Essential hypertension January 03 1:54pm GERD (gastroesophageal reflux disease) F [facility] 2024 1:54pm Hypothyroid January 03, 2025 1:54pm Paroxysmal atrial fibrillation January 03, 2025 1:54pm Stage 3b chronic kidney disease January 03, 2025 1:54pm Type 2 diabetes mellitus with diabetic p olyneuropathy January 03, 2025 1:54pm Type 2 diabetes mellitus with hyperglyce jose January 03, 2025 1:54pm Chief Complaint Admit Date 3 month f/u January 03, 2025 1:54pm Unknown January 28, 2025 9:00 pm T-12 Burst Fracture January 29, 2025 12: 42am T-12 Burst Fracture January 29, 2025 7:5 0am Reason for Visit Admit Date Essential hypertension January 03 1:54pm GERD (gastroesophageal reflux disease) F [facility] 2024 1:54pm Hypothyroid January 03, 2025 1:54pm Paroxysmal atrial fibrillation January 03, 2025 1:54pm Stage 3b chronic kidney disease January 03, 2025 1:54pm Type 2 diabetes mellitus with diabetic p olyneuropathy January 03, 2025 1:54pm Type 2 diabetes mellitus with hyperglyce jose January 03, 2025 1:54pm Burst fracture of T12 vertebra January 12:42am Chronic anticoagulation January 29, 2025 12:42am Essential hypertension January 29, 2025 12:42am Fall January 29, 2025 12: 42am Paroxysmal atrial fibrillation January 12:42am Type 2 diabetes mellitus with hyperglyce [facility] January 29, 2025 12:42am UTI (urinary tract infection) January 12:42am Chief Complaint Admit Date 3 month f/u January 03, 2025 1:54pm Unknown January 28, 2025 9:00 pm T-12 Burst Fracture January 29, 2025 12: 42am T-12 Burst Fracture January 29, 2025 7:5 0am 2 week po [place] February 19, 2025 1:3 8pm Reason for Visit Admit Date Essential hypertension January 03 1:54pm GERD (gastroesophageal reflux disease) F [facility] 2024 1:54pm Hypothyroid January 03, 2025 1:54pm Paroxysmal atrial fibrillation January 03, 2025 1:54pm Stage 3b chronic kidney disease January 03, 2025 1:54pm Type 2 diabetes mellitus with diabetic p olyneuropathy January 03, 2025 1:54pm Type 2 diabetes mellitus with hyperglyce jose January 03, 2025 1:54pm Burst fracture of T12 vertebra January 12:42am Chronic anticoagulation January 29, 2025 12:42am Essential hypertension January 29, 2025 12:42am Paroxysmal atrial fibrillation January 12:42am Type 2 diabetes mellitus with hyperglyce jose January 29, 2025 12:42am Fall January 29, 2025 12: 42am UTI (urinary tract infection) January 12:42am Chief Complaint Admit Date 3 month f/u January 03, 2025 1:54pm Unknown January 28, 2025 9:00 pm T-12 Burst Fracture January 29, 2025 12: 42am T-12 Burst Fracture January 29, 2025 7:5 0am Usp Visit February 08, 2025 11: 59pm 2 week po Kyph[place] February 19, 2025 1:3 8pm 6 mo po kypho March 21, 2025 12: 53pm Reason for Visit Admit Date Essential hypertension January 03 1:54pm GERD (gastroesophageal reflux disease) F [facility] 2024 1:54pm Hypothyroid January 03, 2025 1:54pm Paroxysmal atrial fibrillation January 03, 2025 1:54pm Stage 3b chronic kidney disease January 03, 2025 1:54pm Type 2 diabetes mellitus with diabetic p olyneuropathy January 03, 2025 1:54pm Type 2 diabetes mellitus with hyperglyce jose January 03, 2025 1:54pm Burst fracture of T12 vertebra January 12:42am Chronic anticoagulation January 29, 2025 12:42am Essential hypertension January 29, 2025 12:42am Paroxysmal atrial fibrillation January 12:42am Type 2 diabetes mellitus with hyperglyce jose January 29, 2025 12:42am Fall January 29, 2025 12: 42am UTI (urinary tract infection) January 12:42am Burst fracture of T12 vertebra January 1:38pm Chief Complaint Admit Date 6 mo po kypho March 21, 2025 12: 53pm Usp Visit March 22, 2025 11:59p m Usp Visit April 12, 2025 11:59 pm Usp Visit April 26, 2025 11:59 pm D/C [place] May 04, 2025 11:3 4am UA, burning, itching, frequency May 1:45pm Reason for Visit Admit Date Burst fracture of T12 vertebra February 12:53pm Burst fracture of T12 vertebra April 11:34am Essential hypertension May 04, 2025 1 1:34am GERD (gastroesophageal reflux disease) [facility] 2024 11:34am Hypothyroid May 04, 2025 11:3 4am Paroxysmal atrial fibrillation April 11:34am Stage 3b chronic kidney disease April 11:34am Type 2 diabetes mellitus with diabetic p olyneuropathy May 04, 2025 11:34am Type 2 diabetes mellitus with hyperglyce [facility] May 04, 2025 11:34am Chief Complaint Admit Date Usp Visit April 12, 2025 11:59 pm Usp Visit April 26, 2025 11:59 pm D/C [place] May 04, 2025 11:3 4am UA, burning, itching, frequency May 1:45pm Wellness July 06, 2025 2: 13pm Reason for Visit Admit Date Burst fracture of T12 vertebra April 11:34am Essential hypertension May 04, 2025 1 1:34am GERD (gastroesophageal reflux disease) J [facility] 2024 11:34am Hypothyroid May 04, 2025 11:3 4am Paroxysmal atrial fibrillation April 11:34am Stage 3b chronic kidney disease April 11:34am Type 2 diabetes mellitus with diabetic p olyneuropathy May 04, 2025 11:34am Type 2 diabetes mellitus with hyperglyce jose May 04, 2025 11:34am Essential hypertension July 06, 2025 2:13pm MALIKA (generalized anxiety disorder) Augus t 2024 2:13pm GERD (gastroesophageal reflux disease) A ugust 2024 2:13pm Hypothyroid July 06, 2025 2: 13pm Obstructive sleep apnea July 06 2:13pm Osteopenia July 06, 2025 2: 13pm Paroxysmal atrial fibrillation July 062024 2:13pm Stage 3b chronic kidney disease June 222024 2:13pm Type 2 diabetes mellitus with diabetic p olyneuropathy July 06, 2025 2:13pm Type 2 diabetes mellitus with hyperglyce jose July 06, 2025 2:13pm Medicare annual wellness visit, subseque nt July 06, 2025 2:13pm Screening mammogram for breast cancer [facility] sandrita 2024 2:13pm Additional Source Comments REASON FOR VISIT (unrecogniz ed section and content) 3 MONTH FOLLOW UP MBmedicati onHolter Monitorcortisone shot right kneeNo InformationNo InformationNo InformationNo InformationWELLNESSconcernU/Arefillknee issues, possible injection3 month Follow upLabs done?3 month Follow upUA- Burning, UrgencyUANo InformationPre-Op ClearanceNo Informationcough, horsness, no enegry, started wednesdayNo InformationTCM possiblyNo InformationNo InformationConcernsNo InformationWILLOWSERRORNo InformationWillowsNew ordersrefillWillowsWeekend Call -- WillowsNew OrdersTCASHTABULA [facility] HHWillowsnursing home d/c follow upHH nurseMedication Clarification INFORMATION SOURCE (unrecogn ized section and content) DATE CREATED AUTHOR 02/14/2023 [facility] DATE CREATED AUTHOR AUTHOR'S ORGANIZ ATION 07/13/2023 [facility] DATE CREATED AUTHOR AUTHOR'S ORGANIZ ATION 10/04/2023 [facility] DATE CREATED AUTHOR AUTHOR'S ORGANIZ ATION 05/17/2024 [facility] DATE CREATED AUTHOR AUTHOR'S ORGANIZ ATION 08/14/2024 [facility] DATE CREATED AUTHOR AUTHOR'S ORGANIZ ATION 01/25/2025 [facility] DATE CREATED AUTHOR AUTHOR'S ORGANIZ ATION 05/11/2025 [facility] Care Teams (unrecognized sec tion and content) Team Status: Active Member Role Status Dates Harsha Andrew DO Primary Care Provider Active Team Status: Active Member Role Status Dates Harsha Andrew DO Primary Care Provider Active Start: April 12, 2025 Harsha Andrew , Attending Provider Active Sta rt: April 12, 2025 Team Status: Active Member Role Status Clayton Andrew DO Primary Care Provider Active Start: April 26, 2025 Harsha Andrew , Attending Provider Active Sta rt: April 26, 2025 Team Status: Inactive Member Role Status Dates Harsha Andrew DO Primary Care Provider Active Start: May 04, 2025 End: May 04, 2025 Harsha Andrew , Attending Provider Active Sta rt: May 04, 2025 End: May 04, 2025 Team Status: Active Member Role Status Dates Harsha Andrew DO Primary Care Provider Active Start: May 07, 2025 Harsha Andrew DO Attending Provider Active Sta rt: May 07, 2025 Team Status: Inactive Member Role Status Clayton Andrew DO Primary Care Provider Active Start: June 15, 2025 End: June 15, 2025 Harsha Andrew , Attending Provider Active Sta rt: June 15, 2025 End: June 15, 2025 Team Status: Inactive Member Role Status Clayton Andrew DO Primary Care Provider Active Start: July 06, 2025 End: July 06, 2025 Harsha Andrew DO Attending Provider Active Sta rt: July 06, 2025 End: July 06, 2025 Team Status: Active Member Role Status Clayton Andrew DO Primary Care Provider Active Team Status: Inactive Member Role Status Clayton Andrew DO Primary Care Provide r, Attending Provider Active Start: January 03, 2025 End: January 03, 2025 Team Status: Active Member Role Status Clayton Anderw DO Primary Care Provider Active Start: January 28, 2025 Garrett Suresh DO Attending Provider Active S tart: January 28, 2025 Team Status: Inactive Member Role Status Dates Garrett Forbes DO Attending Provider Active Start : January 28, 2025 End: January 28, 2025 Team Status: Active Member Role Status Dates Harsha Andrew DO Primary Care Provider Active Start: January 29, 2025 Sandy Salcido MD Admit Provider Active Start : January 29, 2025 DREW Aldana Other Provider Active Sta rt: January 29, 2025 Everardo Perez MD Other Provider Active Start: 2024 Anum Grove APRN Other Provider Active St art: January 29, 2025 Donell Rosenbaum , DO Other Provider Active Start : January 29, 2025 Alec Alvarez MD Attending Provider Active Start: January 29, 2025 Team Status: Active Member Role Status Clayton Andrew DO Primary Care Provider Active Start: January 29, 2025 Sandy Salcido MD Admit Provider, Other Provider Ac tive Start: January 29, 2025 Donell Rosenbaum , DO Attending Provider Active S tart: January 29, 2025 Team Status: Active Member Role Status Clayton Andrew DO Primary Care Provide r, Attending Provider Active Start: October 10, 2024 Team Status: Inactive Member Role Status Clayton Andrew DO Primary Care Provide r, Attending Provider Active Start: October 16, 2024 End: October 16, 2024 Team Status: Inactive Member Role Status Clayton Andrew DO Primary Care Provide r, Attending Provider Active Start: April 13, 2024 End: April 13, 2024 Team Status: Inactive Member Role Status Clayton Andrew DO Primary Care Provide r, Attending Provider Active Start: May 30, 2024 End: May 30, 2024 Team Status: Active Member Role Status Clayton Andrew DO Primary Care Provider Active Start: January 31, 2024 JOSELITO Araiza Attending Provider Active Start : January 31, 2024 Team Status: Inactive Member Role Status Clayton Andrew DO Primary Care Provide r, Attending Provider Active Start: February 14, 2024 End: February 14, 2024 Team Status: Active Member Role Status Clayton Andrew DO Primary Care Provide r, Attending Provider Active Start: February 25, 2024 Team Status: Inactive Member Role Status Clayton Andrew DO Attending Provider Active Sta rt: November 25, 2023 End: November 25, 2023 Team Status: Inactive Member Role Status Clayton Andrew DO Primary Care Provide r, Attending Provider Active Start: July 10, 2024 End: July 10, 2024 Team Status: Inactive Member Role Status Clayton Andrew DO Primary Care Provide r, Attending Provider Active Start: July 18, 2024 End: July 18, 2024 Team Status: Active Member Role Status Clayton Andrew DO Primary Care Provide r, Attending Provider Active Start: July 27, 2024 Team Status: Inactive Member Role Status Clayton Andrew DO Primary Care Provide r, Attending Provider Active Start: September 06, 2024 End: September 06, 2024 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 Relationship Specialty Start Date End Date Harsha Andrew MD [address] [facility] [place] [id number] PCP - General Internal Medicine 05/16/24 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 Relationship Specialty Start Date End Date Harsha Andrew DO [address] [place] [id number] PCP - General 10/06/12 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 Relationship Specialty Start Date End Date Harsha Andrew DO [address] [place] [id number] PCP - General 10/06/12 Team Status: Inactive Member Role Status Dates Harsha Andrew DO Primary Care Provider Active Start: January 29, 2025 End: February 02, 2025 Sandy Salcido MD Admit Provider Active Start : January 29, 2025 End: February 02, 2025 Alec Alvarez MD Attending Provider Active Start: January 29, 2025 End: February 02, 2025 DREW Aldana Other Provider Active Sta rt: January 29, 2025 End: February 02, 2025 Everardo Perez MD Other Provider Active Start: 2024 End: February 02, 2025 Anum Grove APRN Other Provider Active St art: January 29, 2025 End: February 02, 2025 Donell Rosenbaum DO Other Provider Active Start : January 29, 2025 End: February 02, 2025 Team Status: Inactive Member Role Status Dates Harsha Andrew DO Primary Care Provider Active Start: February 19, 2025 End: February 19, 2025 Donell Rosenbaum DO Attending Provider Active S tart: February 19, 2025 End: February 19, 2025 Team Status: Active Member Role Status Dates Harsha Andrew DO Primary Care Provide r, Attending Provider Active Start: February 08, 2025 Team Status: Inactive Member Role Status Dates Harsha Ball , DO Primary Care Provider Active Start: March 21, 2025 End: March 21, 2025 Donell Rosenbaum , DO Attending Provider Active S tart: March 21, 2025 End: March 21, 2025 Team Status: Active Member Role Status Dates Harsha Andrew , DO Primary Care Provider Active Start: March 22, 2025 Harsha Ball , DO Attending Provider Active Sta rt: March 22, 2025 Team Status: Active Member Role Status Dates Harsha Andrew , DO Primary Care Provider Active Start: April 12, 2025 Harsha Andrew , DO Attending Provider Active Sta rt: April 12, 2025 Team Status: Active Member Role Status Dates Harsha Andrew , DO Primary Care Provider Active Start: April 26, 2025 Harsha Ball , DO Attending Provider Active Sta rt: April 26, 2025 Team Status: Inactive Member Role Status Dates Harsha Andrew , DO Primary Care Provider Active Start: May 04, 2025 End: May 04, 2025 Harsha Ball , DO Attending Provider Active Sta rt: May 04, 2025 End: May 04, 2025 Team Status: Active Member Role Status Dates Harsha Andrew , DO Primary Care Provider Active Start: May 07, 2025 Harsha Ball , DO Attending Provider Active Sta rt: May 07, 2025 Team Status: Inactive Member Role Status Dates Harsha Andrew , DO Primary Care Provider Active Start: June 15, 2025 End: June 15, 2025 Harsha Ball , DO Attending Provider Active Sta rt: June 15, 2025 End: June 15, 2025 Team Status: Inactive Member Role Status Dates Harsha Andrew , DO Primary Care Provider Active Start: July 06, 2025 End: July 06, 2025 Harsha Ball , DO Attending Provider Active Sta rt: July 06, 2025 End: July 06, 2025 Goals (unrecognized section and content) Goals may [...] BE BASED ON THE PRIMARY CLINICAL RECORDS. [facility]. provides no warranty or guarantee of the accuracy or completeness of information in this document.
[2025-07-06 16:19] LABS: Hematocrit 38.6 % (36.0-48.0); Hemoglobin 12.4 g/dL (12.0-16.0); Immature Granulocytes Abs Auto 0.02 10^3/uL (0.00-0.03); Immature Granulocytes Pct Auto 0.3 % (0.0-0.5); Lymphocytes Absolute Auto 1.0 10^3/uL (1.2-3.8); Mean Corpuscular HGB Conc 32.1 g/dL (29.9-35.2); Mean Corpuscular Hemoglobin 33.2 pg (26.7-34.0); Mean Corpuscular Volume 103.2 fL (81.0-99.0); Platelet Count 257 10^3/uL (150-450); Red Blood Count 3.74 10^6/uL (4.20-5.40); White Blood Count 7.9 10^3/uL (4.0-11.0)
[2025-07-06 16:33] LABS: INR 1.71; Prothrombin Time 17.2 sec (9.0-11.6)
[2025-07-06 17:09] LABS: Microalbum Creatinine Ratio Ur 43.7 mg/g (0.0-29.9)
[2025-07-06 17:23] LABS: Alanine Aminotransferase 45 U/L (14-59); Albumin Globulin Ratio 0.9; Albumin Level 3.5 g/dL (3.4-5.0); Alkaline Phosphatase 70 U/L (46-116); Anion Gap 8.3; Aspartate Amino Transferase 38 U/L (15-37); Blood Urea Nitrogen 25.0 mg/dL (7.0-18.0); Calcium 9.1 mg/dL (8.5-10.1); Carbon Dioxide 30.3 mmol/L (21.0-32.0); Chloride 102 mmol/L (98-107); Estimated GFR (African America >60 (>=60 mL/min/1.73m^2); Estimated GFR (Non-African Ame 53 (>=60 mL/min/1.73m^2); Globulin 4.0 g/dL; Glucose 197 mg/dL (74-106); Potassium 4.6 mmol/L (3.5-5.1); Sodium 136 mmol/L (136-145); Thyroid Stimulating Hormone 3.833 uIU/mL (0.358-3.740); Total Protein 7.5 g/dL (6.4-8.2)
== END 2025-07-06 15:21 | disposition home or self-care (01) ==
LOC: LAB 15:22
PROVIDERS: PCP Internal Medicine; Visit Provider Internal Medicine
DX: E11.65 Type 2 diabetes mellitus with hyperglycemia (principal); N18.32 Chronic kidney disease, stage 3b; E55.9 Vitamin D deficiency, unspecified; E06.3 Autoimmune thyroiditis; I48.0 Paroxysmal atrial fibrillation; I12.9 Hypertensive chronic kidney disease with stage 1 through stage 4 chronic kidney disease, or unspecified chronic kidney disease
CPT/HCPCS: 36415; 80053; 82043; 82306; 82570; 83036; 84443; 85025; 85610

== ENCOUNTER 2025-07-23 03:04 | Outpatient (RCR) | payer MEDICARE, SELFPAY | END 2025-08-21 15:25 | disposition home or self-care (01) | LOC: MM 03:04 | PROVIDERS: PCP Internal Medicine; Visit Provider Internal Medicine | DX: Z51.81 Encounter for therapeutic drug level monitoring (principal); Z79.01 Long term (current) use of anticoagulants; I48.0 Paroxysmal atrial fibrillation | CPT/HCPCS: 85610; G0463 ==

== ENCOUNTER 2025-07-27 14:54 | Outpatient (OUT) | payer MEDICARE, SELFPAY ==
--- NOTE | 2025-07-27 | XR_ITS ---
The [address] [address] Patient Name: FATUMA MENA MRN: [id number] date: 1945 Sex: F Assigned Patient Location: [facility] Current Patient Location: [facility] Accession/Order Number: [id number] Exam Date: 07/27/2025 15:12 Report Date: 07/27/2025 16:04 At the request of: JOSÉ MIGUEL ANDREW DO Procedure: XR lumbar spine 2-3V THORACIC SPINE - - 4 views lumbar spine 2 views CLINICAL HISTORY: M54.9 Back pain Z87.81 history of compression fx COMPARISON: CT thoracic and lumbar spine 01/28/2025 FINDINGS: Thoracic spine: Bones are grossly demineralized. Scoliosis is present. Kyphoplasty changes involving T12. Mild endplate degenerative changes. Pedicles appear intact. Lumbar spine: Compression deformity involving the L1 vertebral body with approximately 25 vertebral body height loss. There is approximately 5 mm of retropulsion into the spinal canal. Remaining vertebral body heights appear maintained. Endplate and facet joint degenerative changes with moderate disc space L4-L5 and L5-S1 with 7 mm of anterolisthesis of L4 on L5. XR/XR lumbar spine 2-3V IMPRESSION: NEW COMPRESSION DEFORMITY L1 VERTEBRAL BODY SINCE THE PRIOR CT STUDY. THERE IS APPROXIMATELY 5 MM RETROPULSION INTO THE SPINAL CANAL. THIS CAN BE FURTHER EVALUATED BY CT. Impression dictated by: Rick Smith Jr., D.O. 07/27/2025 4:04 PM Dictation Location: [employer] Electronically authenticated by: [id number] Y Date: 07/27/2025 16:04
--- NOTE | 2025-07-27 | XR_ITS ---
The [address] [address] Patient Name: FATUMA MENA MRN: [id number] date: 1945 Sex: F Assigned Patient Location: [facility] Current Patient Location: [facility] Accession/Order Number: [id number] Exam Date: 07/27/2025 15:12 Report Date: 07/27/2025 16:04 At the request of: JOSÉ MIGUEL ANDREW DO Procedure: XR lumbar spine 2-3V THORACIC SPINE - - 4 views lumbar spine 2 views CLINICAL HISTORY: M54.9 Back pain Z87.81 history of compression fx COMPARISON: CT thoracic and lumbar spine 01/28/2025 FINDINGS: Thoracic spine: Bones are grossly demineralized. Scoliosis is present. Kyphoplasty changes involving T12. Mild endplate degenerative changes. Pedicles appear intact. Lumbar spine: Compression deformity involving the L1 vertebral body with approximately 25 vertebral body height loss. There is approximately 5 mm of retropulsion into the spinal canal. Remaining vertebral body heights appear maintained. Endplate and facet joint degenerative changes with moderate disc space L4-L5 and L5-S1 with 7 mm of anterolisthesis of L4 on L5. XR/XR thoracic spine 3V IMPRESSION: NEW COMPRESSION DEFORMITY L1 VERTEBRAL BODY SINCE THE PRIOR CT STUDY. THERE IS APPROXIMATELY 5 MM RETROPULSION INTO THE SPINAL CANAL. THIS CAN BE FURTHER EVALUATED BY CT. Impression dictated by: Rick Smith Jr., D.O. 07/27/2025 4:04 PM Dictation Location: [place] [address] Electronically authenticated by: [id number] Y Date: 07/27/2025 16:04
--- OUTSIDE RECORDS SUMMARY | 2025-07-27 15:04 | XMS_ITS | CCD ---
Author Organization [facility] CliniSyor Care Team Providers Care Wood Lathe Operator Name Role Phone Harsha Andrew Unavailable KAMRAN, [...] Attending Unavaila ble Ball DO, [facility] Primary Care Unavail able Seamus SANDHU, Isidro Dahl Attending Unavaila ble Denike DO, Frank Del Rosario Attending Unavaila ble Ball DO, [facility] Primary Care Unavail able Seamus SANDHU, Isidro Dahl Attending Unavaila ble Ball DO, [facility] Primary Care Unavail able Seamus SANDHU, Isidro Dahl Attending Unavaila ble Ball DO, [facility] Primary Care Unavail able DAKOTA MAK [...] Provider Kamran HI, Harsha Primary Care Provider [phone] RICHARD DAY Referring Unavailable KAMRAN, HARSHA Primary Care Unavailable CHING COHEN Referring Unavailable KAMRAN, HARSHA Primary Care Unavailable KAMRAN, HARSHA Primary Care Unavailable CHING COHEN Referring Unavailable KAMRAN, HARSHA Primary Care Unavailable RICHARD DAY Referring Unavailable KAMRAN, HARSHA Primary Care Unavailable Pay Garrett HI Attending Provider Kamran HI, Harsha Primary Care Provider [phone] Omari SANDHU, Sandy Admit Provider Jose Jignesh [...] Unavailable Kamran HI, Harsha Primary Care Provider [phone] Donell Rosenbaum DO Attending Provider [phone] Kamran HI, Harsha Attending Provider [phone] Kamran HI, Harsha Primary Care Provider [phone] Harsha Andrew DO Attending Provider Allergies Allergy Classification Reported Allergen(s) Allergy Type Date of Onset Reaction(s) Facility (20 sources) Linagliptin Drug Allergy 02-14-20 24 Unknown, Unknown Reaction [facility] (20 sources) metFORMIN Drug Allergy 11-22-19 20 Unknown, Unknown Reaction [facility] (20 sources) Sertraline; Translations: [SERTRALINE] Drug Allergy 01-16-20 13 Unknown, Unknown Reaction [facility] (20 sources) Sulfacetamide Drug Allergy 02-14-20 24 Unknown, Unknown Reaction [facility] (2 sources) Linagliptin Drug Allergy Unknown [facility] (1 source) metFORMIN Drug Allergy [facility] (1 source) Sertraline Drug Allergy 05-01-20 13 [facility] (1 source) Sulfonamides (Antibiotic) Drug allergy (disorder) [facility] (2 sources) Sertraline Drug Allergy 11-22-19 20 SERTRALINE HCL Comment:Freete xt Needs Updated. [facility] Other (2 sources) Allergies Reconciled Propensity to adverse reactions Unknown [facility] Other (20 sources) Sulf-10 Drug allergy Comment:sulfa drugs [facility] Other (2 sources) patient allergy list reviewed by nurse or physicia Propensity to adverse reactions 11-22-19 Comment:Done [facility] Other (14 sources) Sulfonamides (Antibiotic); Translations: [Sulfa (Sulfonamide Antibiotics)] Allergy to substance 02-14-20 Comment:sulfa drugs [facility] (1 source) Linagliptin Drug Allergy 05-04-20 [facility] (1 source) metFORMIN Drug Allergy 05-04-20 [facility] (1 source) Sertraline Drug Allergy 05-04-20 [facility] (1 source) Sulfacetamide Drug Allergy 05-04-20 [facility] Repository Medications Current Medications Medication Drug Class(es) [...] extended release oral tablet (2 sources) Uncompetitive F-rjwvgs-T-aspartate Receptor Antagonist, Sigma-1 Agonist take 1 tablet [...] Active docusate sodium 50 mg / sennosides, correction 8.6 mg oral tablet (5 sources) Start: [...] disease (4 sources) Atherosclerotic heart disease of [place] coronary artery with other forms of angina [...] sources) H/O: high risk medication; Translations: [Other chcf (current) drug therapy] Episodic Other aftercare (4 sources) Other chcf (current) drug therapy; Translations: [OTH SHELTER CURRENT DRUG THERAPY] Onset: 02-13-2023 Episodic Other aftercare (2 sources) Long-term current use of drug therapy; Translations: [Other manager terminal (current) drug therapy] Episodic Other aftercare (2 sources) Long-term current use of insulin; Translations: [assistant terminal manager (current) use of insulin] Episodic Other aftercare (4 sources) Drug therapy finding; Translations: [Other manager terminal (current) drug therapy] 02-14-2024 Episodic Other aftercare (6 sources) Long-term current use of anticoagulant; Translations: [intermediate (current) use of anticoagulants] 01-29-2025 Episodic Other [...] medications] Onset: 12-07-2017 Unclassified (3 sources) A [facility] screening has identified you as FRAIL or [...] Four Ways to Beat the Frailty Risk [email or web address] [email or web address] yqrob-jhu-uzzhqwookn/ xrho-lskrox-barp-ways -vn-evll-glu-fra ilty-risk 02-02-2025 Viral infection (11 sources) Disease [...] Onset: 10-19-2012 Episodic Other aftercare (5 sources) assistant terminal manager (current) use of anticoagulants; Translations: [Long-term (current) [...] Andrew on 06-15-2025 Bilirubin Ql (U) Negative [facility] Glucose (U) [Mass/Vol] Negative [facility] Ketones Ql (U) Negative [facility] pH (U) 6.0 [pH] [facility] Specific gravity (U) [Rel density] 1.005 [facility] Urobilinogen (U) [Mass/Vol] Negative [facility] Laboratory - Specimen inform ationOrdered By: Harsha Andrew on 06-15-2025 Appearance (U) cloudy [facility] Color (U) darkyellow [facility] Laboratory - UrinalysisOrder ed By: Harsha Andrew on 06-15-2025 Leukocyte esterase Test strip Ql (U) ++ [facility] Nitrite Ql (U) Negative [facility] Protein Ql (U) ++ [facility] No Panel InformationOrdered By: Harsha Andrew on 06-15-2025 Urine Occult Blood +++ [facility] Laboratory - Chemistry and C hemistry - challengeon 05-07-2025 Bilirubin Ql (U) Negative NEGATIVE [facility] Glucose (U) [Mass/Vol] Negative NEGATIVE [facility] Ketones Ql (U) TRACE mg/dL Abnormal NEGATIVE [facility] pH (U) 6.0 [pH] 5.0-9.0 [facility] Specific gravity (U) [Rel density] >=1.030 Abnormal 1.005-1.02 5 [facility] Urobilinogen Qn (U) 0.2 {Abhilash'U}/dL 0.2-1.0 [facility] Laboratory - Specimen inform ationon 05-07-2025 Appearance (U) CLOUDY Abnormal CLEAR [facility] Color (U) DK. YELLOW YELLOW [facility] Laboratory - Urinalysison Leukocyte esterase Test strip Ql (U) LARGE Abnormal NEGATIVE [facility] Nitrite Ql (U) Negative NEGATIVE [facility] Protein Ql (U) 100 mg/dL Abnormal NEG/TRACE [facility] No Panel Informationon 05-07 Urine Occult Blood MODERATE Abnormal NEGATIVE [facility] Urine Cultureon 05-07-2025 Bacteria identified Cx Nom (U) ORGANISM: Pamella albicans (O:CANALB) [place] Count >100,000 PERFORMED BY: [place] [address] PATHOLOGIST MANAGER CUSTOMER SERVICE TAMIR MACK M.D. Normal [facility] Comment on above: Performed By: #### C UU #### [address] Basic Metabolic Panelon 01-20 Anion gap [Moles/Vol] 10.9 mmol/L Normal 6.0-15.0 Th e [facility] Comment on above: Performed By: #### P T, PTT #### [place] [address] [place] Calcium [Mass/Vol] 8.2 mg/dL Low 8.6-10.3 [facility] Comment on above: Performed By: #### P T, PTT #### [place] [address] [place] Chloride [Moles/Vol] 97 mmol/L Low 98-107 [facility] Comment on above: Performed By: #### P T, PTT #### [place] [address] [place] CO2 [Moles/Vol] 26.9 mmol/L Normal 21.0-31.0 [facility] Comment on above: Performed By: #### P T, PTT #### [address] Creatinine [Mass/Vol] 0.82 mg/dL Normal 0.60-1.20 [facility] Comment on above: Performed By: #### P T, PTT #### [address] Creatinine Clr Calc Pharmacy 47.25 Normal [facility] Comment on above: Result Comment: PERF ORMED BY: [place] [address] PATHOLOGIST MANAGER CUSTOMER SERVICE ROMAINE HENDERSON M.D. Performed By: #### P T, PTT #### [address] GFR/1.73 sq M.predicted MDRD (S/P/Bld) [Vol rate/Area] mL/min/{1.73_m2} Normal [facility] Comment on above: Performed By: #### P T, PTT #### [address] Glucose [Mass/Vol] 227 mg/dL High 70-100 [facility] Comment on above: Result Comment: [place] Glucose Reference Range is dependent on time and content of last meal. Glucose of more than 200 mg/dL in a nonstressed, ambulatory subject supports the diagnosis of Diabetes Mellitus. ADA recommended reference range Performed By: #### P T, PTT #### [address] Potassium [Moles/Vol] 3.8 mmol/L Normal 3.5-5.1 [facility] Comment on above: Performed By: #### P T, PTT #### [address] Sodium [Moles/Vol] 131 mmol/L Low 136-145 [facility] Comment on above: Performed By: #### P T, PTT #### [facility] [address] Urea nitrogen [Mass/Vol] 31 mg/dL High 7-25 [facility] Comment on above: Performed By: #### P T, PTT #### [facility] [address] Basophils Auto (Bld) [#/Vol] Ordered By: Alexandra Cheney on 02-02-2025 Basophils (Bld) [#/Vol] Automated basophil count 0.0-0.2 [facility] Basophils/100 WBC Auto (Bld) Ordered By: Alexandra Cheney on 02-02-2025 Basophils/100 WBC (Bld) Automated basophil % . [facility] Calcium [Mass/volume] in Ser um or PlasmaOrdered By: Alexandra Cheney on 02-02-2025 Calcium [Mass/Vol] Calcium [Mass/volume ] in Serum or Plasma Low 8.6-10.3 [facility] Carbon dioxide, total [Moles /volume] in Serum or PlasmaOrdered By: Alexandra Cheney on 02-02-2025 CO2 [Moles/Vol] Carbon dioxide, tota l [Moles/volume] in Serum or Plasma 21.0-31.0 [facility] Chloride [Moles/volume] in S patricia or PlasmaOrdered By: Alexandra Cheney on 02-02-2025 Chloride [Moles/Vol] Chloride [Moles/vol ume] in Serum or Plasma Low 98-107 [facility] Complete Blood Count Auto Di ffon 02-02-2025 Basophils (Bld) [#/Vol] 0.0 10*3/uL Normal 0.0-0.2 [facility] Comment on above: Result Comment: PERF ORMED BY: [address] [place] [address] PATHOLOGIST MANAGER CUSTOMER SERVICE ROMAINE HENDERSON M.D. Performed By: #### P T, PTT #### [facility] [address] [place] [address] Basophils/100 WBC (Bld) 0.2 % Normal . [facility] Comment on above: Performed By: #### P T, PTT #### [facility] [address] [place] [address] [place] Eosinophils (Bld) [#/Vol] 0.1 10*3/uL Normal 0.0-0.45 [facility] Comment on above: Performed By: #### P T, PTT #### [facility] [address] [place] [address] [place] Eosinophils/100 WBC (Bld) 1.0 % Normal . [facility] Comment on above: Performed By: #### P T, PTT #### [facility] [address] Erythrocyte distribution width (RBC) [Ratio] 13.5 % Normal 11.9-15.3 [facility] Comment on above: Performed By: #### P T, PTT #### [address] Hematocrit (Bld) [Volume fraction] 34.0 % Normal 34.0-46.4 [facility] Comment on above: Performed By: #### P T, PTT #### [address] Hemoglobin (Bld) [Mass/Vol] 11.7 g/dL Low 11.8-15.4 [facility] Comment on above: Performed By: #### P T, PTT #### [place] [address] [place] Lymphocytes (Bld) [#/Vol] 0.5 10*3/uL Low 1.00-4.8 [facility] Comment on above: Performed By: #### P T, PTT #### [place] [address] [place] Lymphocytes/100 WBC (Bld) 4.5 % Normal . [facility] Comment on above: Performed By: #### P T, PTT #### [address] MCH (RBC) [Entitic mass] 34.0 pg Normal 24.7-34.3 [facility] Comment on above: Performed By: #### P T, PTT #### [address] MCV (RBC) [Entitic vol] 98.7 fL Normal 80-100 [facility] Comment on above: Performed By: #### P T, PTT #### [address] Mean Corpuscular HGB Conc 34.4 g/dL Normal 32.0-35.0 [facility] Comment on above: Performed By: #### P T, PTT #### [address] Monocytes (Bld) [#/Vol] 0.8 10*3/uL Normal 0.0-0.8 [facility] Comment on above: Performed By: #### P T, PTT #### [address] Monocytes/100 WBC (Bld) 7.3 % Normal . [facility] Comment on above: Performed By: #### P T, PTT #### [place] [address] [place] Neutrophils (Bld) [#/Vol] 9.9 10*3/uL High 1.8-7.7 [facility] Comment on above: Performed By: #### P T, PTT #### [address] Neutrophils/100 WBC (Bld) 87.0 % Normal . [facility] Comment on above: Performed By: #### P T, PTT #### [address] NRBC% 0.2 /100{WBC} Normal 0-0.5 [facility] Comment on above: Performed By: #### P T, PTT #### [address] Platelet mean volume (Bld) [Entitic vol] 9.0 fL Normal 6.3-10.7 [facility] Comment on above: Performed By: #### P T, PTT #### [facility] [address] [place] [address] [place] Platelets (Bld) [#/Vol] 179 10*3/uL Normal 150-450 [facility] Comment on above: Performed By: #### P T, PTT #### [facility] [address] RBC (Bld) [#/Vol] 3.44 10*6/uL Low 3.60-5.00 [facility] Comment on above: Performed By: #### P T, PTT #### [facility] [address] [place] [address] [place] WBC (Bld) [#/Vol] 11.3 10*3/uL Normal 3.8-11.6 [facility] Comment on above: Performed By: #### P T, PTT #### [facility] [address] Creatinine [Mass/volume] in Serum or PlasmaOrdered By: Alexandra Cheney on 02-02-2025 Creatinine [Mass/Vol] Creatinine [Mass/v olume] in Serum or Plasma 0.60-1.20 [facility] Eosinophils Auto (Bld) [#/Vo l]Ordered By: Alexandra Cheney on 02-02-2025 Eosinophils (Bld) [#/Vol] Automated eosinophil count 0.0-0.45 [facility] Eosinophils/100 WBC Auto (Bl d)Ordered By: Alexandra Cheney on 02-02-2025 Eosinophils/100 WBC (Bld) Automated eosinophil % . [facility] Erythrocyte distribution wid th Auto (RBC) [Ratio]Ordered By: Alexandra Rodas on 02-02-2025 Erythrocyte distribution width (RBC) [Ratio] Erythrocyte distribution width [Ratio] by Automated count 11.9-15.3 [facility] Glucose Glucometer (BldC) [M ass/Vol]Ordered By: Alec Alvarez on 02-02-2025 Glucose [Mass/Vol] Capillary blood gluc ose measurement by glucometer (mass/volume) [facility] Comment on above: Random Glucose Refer ence Range is dependent on time and content of last meal. Glucose of more than 200 mg/dL in a nonstressed, ambulatory subject supports the diagnosis of Diabetes Mellitus. Glucose Poct Glucometerson 0 02-02-2025 Glucose [Mass/Vol] 343 mg/dL Normal [facility] Comment on above: Result Comment: [place] om Glucose Reference Range is dependent on time and content of last meal. Glucose of more than 200 mg/dL in a nonstressed, ambulatory subject supports the diagnosis of Diabetes Mellitus. PERFORMED BY: [place] [address] PATHOLOGIST MANAGER CUSTOMER SERVICE ROMAINE HENDERSON M.D. Performed By: #### P T, PTT #### [address] Glucose [Mass/Vol] 246 mg/dL Normal [facility] Comment on above: Result Comment: [place] om Glucose Reference Range is dependent on time and content of last meal. Glucose of more than 200 mg/dL in a nonstressed, ambulatory subject supports the diagnosis of Diabetes Mellitus. PERFORMED BY: [place] [address] PATHOLOGIST MANAGER CUSTOMER SERVICE ROMAINE HENDERSON M.D. Performed By: #### G LULS #### Point of Care testing , Glucose [Mass/volume] in Ser um or PlasmaOrdered By: Alexandra Cheney on 02-02-2025 Glucose [Mass/Vol] Glucose [Mass/volume ] in Serum or Plasma High 70-100 [facility] Comment on above: ADA recommended refe rence rangeRandom Glucose Reference Range is dependent on time and content of last meal. Glucose of more than 200 mg/dL in a nonstressed, ambulatory subject supports the diagnosis of Diabetes Mellitus. Hematocrit Auto (Bld) [Volum e fraction]Ordered By: Alexandra Cheney on 02-02-2025 Hematocrit (Bld) [Volume fraction] Hematocrit [Volume Fraction] of Blood by Automated count 34.0-46.4 [facility] Hemoglobin [Mass/volume] in BloodOrdered By: Alexandra Cheney on 02-02-2025 Hemoglobin (Bld) [Mass/Vol] Hemoglobin [Mass/volume] in Blood Low 11.8-15.4 [facility] Leukocytes [#/volume] correc [place] for nucleated erythrocytes in Blood by Automated counOrdered By: Alexandra Cheney on 02-02-2025 WBC corrected for nucl RBC Auto (Bld) [#/Vol] Leukocytes [#/volume] corrected for nucleated erythrocytes in Blood by Automated coun 3.8-11.6 [facility] Lymphocytes Auto (Bld) [#/Vo l]Ordered By: Alexandra Cheney on 02-02-2025 Lymphocytes (Bld) [#/Vol] Lymphocytes [#/volume] in Blood by Automated count Low 1.00-4.8 [facility] Lymphocytes/100 WBC Auto (Bl d)Ordered By: Alexandra Cheney on 02-02-2025 Lymphocytes/100 WBC (Bld) Lymphocytes/100 leukocytes in Blood by Automated count . [facility] MCH Auto (RBC) [Entitic mass ]Ordered By: Alexandra Cheney on 02-02-2025 MCH (RBC) [Entitic mass] MCH [Entitic mass] by Automated count 24.7-34.3 [facility] MCHC Auto (RBC) [Mass/Vol]Or dered By: Alexandra Cheney on 02-02-2025 MCHC (RBC) [Mass/Vol] MCHC [Mass/volume] by Automated count 32.0-35.0 [facility] MCV Auto (RBC) [Entitic vol] Ordered By: Alexandra Cheney on 02-02-2025 MCV (RBC) [Entitic vol] MCV [Entitic volume] by Automated count 80-100 [facility] Monocytes Auto (Bld) [#/Vol] Ordered By: Alexanrda Cheney on 02-02-2025 Monocytes (Bld) [#/Vol] Automated blood monocyte count 0.0-0.8 [facility] Monocytes/100 WBC Auto (Bld) Ordered By: Alexandra Cheney on 02-02-2025 Monocytes/100 WBC (Bld) Automated monocyte % . [facility] Neutrophils Auto (Bld) [#/Vo l]Ordered By: Alexandra Cheney on 02-02-2025 Neutrophils (Bld) [#/Vol] Neutrophils [#/volume] in Blood by Automated count High 1.8-7.7 [facility] Neutrophils/100 WBC Auto (Bl d)Ordered By: Alexandra Cheney on 02-02-2025 Neutrophils/100 WBC (Bld) Automated neutrophil % . [facility] No Panel InformationOrdered By: Alexandra Cheney on 02-02-2025 Estimated GFR (CKD-EPI) > 60.0 mL/Min [facility] Creatinine Clearance (Chem 47.25 [facility] Nucleated erythrocytes [Pres ence] in Blood by Automated countOrdered By: Alexandra Cheney on 02-02-2025 Nucleated RBC Auto Ql (Bld) Nucleated erythrocytes [Presence] in Blood by Automated count 0-0.5 [facility] Platelet mean volume Auto (B ld) [Entitic vol]Ordered By: Alexandra Cheney on 02-02-2025 Platelet mean volume (Bld) [Entitic vol] Platelet mean volume [Entitic volume] in Blood by Automated count 6.3-10.7 [facility] Platelets Auto (Bld) [#/Vol] Ordered By: Alexandra Cheney on 02-02-2025 Platelets (Bld) [#/Vol] Platelets [#/volume] in Blood by Automated count 150-450 [facility] Potassium [Moles/volume] in Serum or PlasmaOrdered By: Alexandra Cheney on 02-02-2025 Potassium [Moles/Vol] Potassium [Moles/v olume] in Serum or Plasma 3.5-5.1 [facility] RBC Auto (Bld) [#/Vol]Ordere d By: Alexandra Cheney on 02-02-2025 RBC (Bld) [#/Vol] Erythrocytes [#/volu me] in Blood by Automated count Low 3.60-5.00 [facility] Serum or plasma anion gap de terminationOrdered By: Alexandra Cheney on 02-02-2025 Anion gap [Moles/Vol] Serum or plasma an ion gap determination 6.0-15.0 [facility] Sodium [Moles/volume] in Ser um or PlasmaOrdered By: Alexandra Cheney on 02-02-2025 Sodium [Moles/Vol] Sodium [Moles/volume ] in Serum or Plasma Low 136-145 [facility] Urea nitrogen [Mass/volume] in Serum or PlasmaOrdered By: Alexandra Cheney on 02-02-2025 Urea nitrogen [Mass/Vol] Urea nitrogen [Mass/volume] in Serum or Plasma High 7-25 [facility] WBC Auto (Bld) [#/Vol]Ordere d By: Alexandra Cheney on 02-02-2025 WBC (Bld) [#/Vol] Leukocytes [#/volume ] in Blood by Automated count 3.8-11.6 [facility] Appearance of UrineOrdered B y: Alexandra Cheney on 02-01-2025 Appearance (U) Urine appearance Abnormal Clear [facility] Bacteria [Presence] in Urine by AutomatedOrdered By: Alexandra Cheney on 02-01-2025 Bacteria Auto Ql (U) Bacteria [Presence] in Urine by Automated High None Seen [facility] Basic Metabolic Panelon 01-20 Anion gap [Moles/Vol] 11.5 mmol/L Normal 6.0-15.0 [facility] Comment on above: Performed By: #### P T, PTT #### [facility] [address] [place] [address] [place] Calcium [Mass/Vol] 9.1 mg/dL Normal 8.6-10.3 [facility] Comment on above: Performed By: #### P T, PTT #### [facility] [address] [place] [address] [place] Chloride [Moles/Vol] 96 mmol/L Low 98-107 [facility] Comment on above: Performed By: #### P T, PTT #### [facility] [address] [place] [address] [place] CO2 [Moles/Vol] 26.5 mmol/L Normal 21.0-31.0 [facility] Comment on above: Performed By: #### P T, PTT #### [facility] [address] Creatinine [Mass/Vol] 1.12 mg/dL Normal 0.60-1.20 [facility] Comment on above: Performed By: #### P T, PTT #### [address] Creatinine Clr Calc Pharmacy 34.59 Normal [facility] Comment on above: Result Comment: PERF ORMED BY: [place] [address] PATHOLOGIST MANAGER CUSTOMER SERVICE ROMAINE HENDERSON M.D. Performed By: #### P T, PTT #### [address] Estimated GFR 49.710 mL/Min Normal [facility] Comment on above: Performed By: #### P T, PTT #### [address] Glucose [Mass/Vol] 268 mg/dL High 70-100 [facility] Comment on above: Result Comment: [place] Glucose Reference Range is dependent on time and content of last meal. Glucose of more than 200 mg/dL in a nonstressed, ambulatory subject supports the diagnosis of Diabetes Mellitus. ADA recommended reference range Performed By: #### P T, PTT #### [address] Potassium [Moles/Vol] 4.0 mmol/L Normal 3.5-5.1 [facility] Comment on above: Performed By: #### P T, PTT #### [place] [address] [place] Sodium [Moles/Vol] 130 mmol/L Low 136-145 [facility] Comment on above: Performed By: #### P T, PTT #### [address] Urea nitrogen [Mass/Vol] 47 mg/dL High 7-25 [facility] Comment on above: Performed By: #### P T, PTT #### [address] Bilirubin Test strip Ql (U)O rdered By: Alexandra Cheney on 02-01-2025 Bilirubin Ql (U) Bilirubin.total [Presence] in Urine by Test strip Negative [facility] Color Auto (U)Ordered By: Neeru CanalesAnumy on 02-01-2025 Color (U) Color of Urine by Auto Yellow [facility] Complete Blood Count Auto Di ffon 02-01-2025 Basophils (Bld) [#/Vol] 0.1 10*3/uL Normal 0.0-0.2 [facility] Comment on above: Result Comment: PERF ORMED BY: [place] [address] PATHOLOGIST MANAGER CUSTOMER SERVICE ROMAINE HENDERSON M.D. Performed By: #### P T, PTT #### [address] Basophils/100 WBC (Bld) 1.0 % Normal . [facility] Comment on above: Performed By: #### P T, PTT #### [address] Eosinophils (Bld) [#/Vol] 0.1 10*3/uL Normal 0.0-0.45 [facility] Comment on above: Performed By: #### P T, PTT #### [address] Eosinophils/100 WBC (Bld) 0.7 % Normal . [facility] Comment on above: Performed By: #### P T, PTT #### [address] Erythrocyte distribution width (RBC) [Ratio] 13.4 % Normal 11.9-15.3 [facility] Comment on above: Performed By: #### P T, PTT #### [address] Hematocrit (Bld) [Volume fraction] 39.1 % Normal 34.0-46.4 [facility] Comment on above: Performed By: #### P T, PTT #### [address] Hemoglobin (Bld) [Mass/Vol] 13.4 g/dL Normal 11.8-15.4 [facility] Comment on above: Performed By: #### P T, PTT #### [address] Lymphocytes (Bld) [#/Vol] 0.6 10*3/uL Low 1.00-4.8 [facility] Comment on above: Performed By: #### P T, PTT #### [place] [address] [place] Lymphocytes/100 WBC (Bld) 4.2 % Normal . [facility] Comment on above: Performed By: #### P T, PTT #### [address] MCH (RBC) [Entitic mass] 34.4 pg High 24.7-34.3 [facility] Comment on above: Performed By: #### P T, PTT #### [place] [address] [place] MCV (RBC) [Entitic vol] 100.5 fL High 80-100 [facility] Comment on above: Performed By: #### P T, PTT #### [address] Mean Corpuscular HGB Conc 34.2 g/dL Normal 32.0-35.0 [facility] Comment on above: Performed By: #### P T, PTT #### [place] [address] [place] Monocytes (Bld) [#/Vol] 0.9 10*3/uL High 0.0-0.8 [facility] Comment on above: Performed By: #### P T, PTT #### [address] Monocytes/100 WBC (Bld) 6.3 % Normal . [facility] Comment on above: Performed By: #### P T, PTT #### [facility] [address] [place] [address] [place] Neutrophils (Bld) [#/Vol] 12.0 10*3/uL High 1.8-7.7 [facility] Comment on above: Performed By: #### P T, PTT #### [facility] [address] [place] [id number] [place] Neutrophils/100 WBC (Bld) 87.8 % Normal . [facility] Comment on above: Performed By: #### P T, PTT #### [facility] [address] NRBC% 0.0 /100{WBC} Normal 0-0.5 [facility] Comment on above: Performed By: #### P T, PTT #### [facility] [address] Platelet mean volume (Bld) [Entitic vol] 8.9 fL Normal 6.3-10.7 [facility] Comment on above: Performed By: #### P T, PTT #### [facility] [address] [place] [address] [place] Platelets (Bld) [#/Vol] 191 10*3/uL Normal 150-450 [facility] Comment on above: Performed By: #### P T, PTT #### [place] [address] [place] RBC (Bld) [#/Vol] 3.89 10*6/uL Normal 3.60-5.00 [facility] Comment on above: Performed By: #### P T, PTT #### [facility] [address] [place] [address] [place] WBC (Bld) [#/Vol] 13.6 10*3/uL High 3.8-11.6 [facility] Comment on above: Performed By: #### P T, PTT #### [place] [address] [place] Dipstick and Microscopicon 0 02-01-2025 Appearance (U) Cloudy Critically abnormal Clear [facility] Comment on above: Order Comment: Name Collection Type:: Baldwin Catheter Performed By: #### A DDONUAPLUS #### [facility] [address] [place] [address] [place] Bacteria,Urine 3+ High None Seen [facility] Comment on above: Order Comment: Name Collection Type:: Baldwin Catheter Performed By: #### A DDONUAPLUS #### [facility] [address] [place] [address] [place] Bilirubin,Urine Negative Normal Negative [facility] Comment on above: Order Comment: Name Collection Type:: Baldwin Catheter Performed By: #### A DDONUAPLUS #### [facility] [address] [place] [address] [place] Color (U) Yellow Normal Yellow [facility] Comment on above: Order Comment: Name Collection Type:: Baldwin Catheter Performed By: #### A DDONUAPLUS #### [place] [address] [place] Glucose Ql (U) 1000 mg/dL High Normal [facility] Comment on above: Order Comment: Name Collection Type:: Baldwin Catheter Performed By: #### A DDONUAPLUS #### [place] [address] [place] Hyaline Casts,Urine 9-19 High 0-8 [facility] Comment on above: Order Comment: Name Collection Type:: Baldwin Catheter Performed By: #### A DDONUAPLUS #### [place] [address] [place] Ketones Ql (U) 1+ High Negative [facility] Comment on above: Order Comment: Name Collection Type:: Baldwin Catheter Performed By: #### A DDONUAPLUS #### [facility] [address] [place] [address] [place] Leukocyte esterase Test strip Ql (U) 1+ High Negative [facility] Comment on above: Order Comment: Name Collection Type:: Baldwin Catheter Performed By: #### A DDONUAPLUS #### [facility] [address] [place] [address] [place] Mucus,Urine 4+ Critically abnormal [facility] Comment on above: Order Comment: Name Collection Type:: Baldwin Catheter Result Comment: PERF ORMED BY: [place] [address] PATHOLOGIST MANAGER CUSTOMER SERVICE ROMAINE HENDERSON M.D. Performed By: #### A DDONUAPLUS #### [place] [address] [place] Nitrite,Urine Negative Normal Negative [facility] Comment on above: Order Comment: Name Collection Type:: Baldwin Catheter Performed By: #### A DDONUAPLUS #### [place] [address] [place] Occult Blood,Urine Negative Normal Negative [facility] Comment on above: Order Comment: Name Collection Type:: Baldwin Catheter Result Comment: PERF ORMED BY: [place] [address] PATHOLOGIST MANAGER CUSTOMER SERVICE ROMAINE HENDERSON M.D. Performed By: #### A DDONUAPLUS #### [place] [address] [place] pH (U) 5.0 [pH] Normal 5.0-9.0 [facility] Comment on above: Order Comment: Name Collection Type:: Baldwin Catheter Performed By: #### A DDONUAPLUS #### [place] [address] [place] Protein (U) [Mass/Vol] 20 mg/dL High Negative [facility] Comment on above: Order Comment: Name Collection Type:: Baldwin Catheter Performed By: #### A DDONUAPLUS #### [place] [address] [place] RBC,Urine 1-2 Normal 0-4 [facility] Comment on above: Order Comment: Name Collection Type:: Baldwin Catheter Performed By: #### A DDONUAPLUS #### [place] [address] [place] Specificy [place],Urine 1.018 Normal 1.001-1.03 0 [facility] Comment on above: Order Comment: Name Collection Type:: Baldwin Catheter Performed By: #### A DDONUAPLUS #### [facility] [address] Squamous Epithelial Cell,Urine 1-2 Normal 0-2 [facility] Comment on above: Order Comment: Name Collection Type:: Baldwin Catheter Performed By: #### A DDONUAPLUS #### [address] Urobilinogen,Urine Normal Normal Normal [facility] Comment on above: Order Comment: Name Collection Type:: Baldwin Catheter Performed By: #### A DDONUAPLUS #### [address] WBC CLUMP, Urine Few High None Seen [facility] Comment on above: Order Comment: Name Collection Type:: Baldwin Catheter Performed By: #### A DDONUAPLUS #### [place] [address] [place] WBC,Urine 3-4 Normal 0-4 [facility] Comment on above: Order Comment: Name Collection Type:: Baldwin Catheter Performed By: #### A DDONUAPLUS #### [address] Epithelial cells.squamous [# /area] in Urine sediment by Automated countOrdered By: Alexandra Cheney on 02-01-2025 Epithelial cells.squamous Auto (Urine sed) [#/Area] Epithelial cells.squamous [#/area] in Urine sediment by Automated count 0-2 [facility] Erythrocytes [#/area] in Uri ne sediment by Automated countOrdered By: Alexandra Cheney on 02-01-2025 RBC Auto (Urine sed) [#/Area] Erythrocytes [#/area] in Urine sediment by Automated count 0-4 [facility] [place] guided kyphoplastyon 01-20 [place] guided kyphoplasty [facility] [place] [address] [place] [address] Fluoroscopy Report Signed Patient: Fatuma Fair MR#: [id number] : 1945 Acct:[id number] Age/Sex: 80 / F ADM Date: 01/29/25 Loc: 4N Room: [address] [place] [address] Type: ADM IN Attending Dr: Alec Alvarez [...] Smith Jr., D.O.02/01/2025 1:35 PM Dictation Location: [place] [address] Transcribed By: JORGE 02/01/25 1335 Dictated By: Rick Smith Jr, DO 02/01/25 1334 Signed By: 02/01/25 1335 Normal [facility] Fluoroscopy reportOrdered By : Rick Smith on 02-01-2025 RF Unspecified body region Views [facility] [place] [address] Fluoroscopy Report Signed Patient: Fatuma Fair MR#: [id number] : 1945 Acct:[id number] Age/Sex: 80 / F ADM Date: 5 Loc: 4N Room: [address] [place] [address] Type: ADM IN Attending Dr: Alec Alvarez [...] Smith Jr., D.O.02/01/2025 1:35 PM Dictation Location: [facility] [address]- Transcribed By: [facility] 02/01/25 1335 Dictated By: Rick Smith Jr, DO 02/01/25 1334 Signed By: 02/01/25 1335 [facility] Glucose Poct Glucometerson 0 02-01-2025 Glucose [Mass/Vol] 395 mg/dL Normal [facility] Comment on above: Result Comment: [place] om Glucose Reference Range is dependent on time and content of last meal. Glucose of more than 200 mg/dL in a nonstressed, ambulatory subject supports the diagnosis of Diabetes Mellitus. PERFORMED BY: [place] [address] PATHOLOGIST MANAGER CUSTOMER SERVICE ROMAINE HENDERSON M.D. Performed By: #### C UU #### [address] Glucose [Mass/Vol] 276 mg/dL Normal [facility] Comment on above: Result Comment: [place] Glucose Reference Range is dependent on time and content of last meal. Glucose of more than 200 mg/dL in a nonstressed, ambulatory subject supports the diagnosis of Diabetes Mellitus. PERFORMED BY: [place] [address] PATHOLOGIST MANAGER CUSTOMER SERVICE ROMAINE HENDERSON M.D. Performed By: #### G LULS #### Point of Care testing , Glucose [Mass/Vol] 224 mg/dL Normal [facility] Comment on above: Result Comment: [place] Glucose Reference Range is dependent on time and content of last meal. Glucose of more than 200 mg/dL in a nonstressed, ambulatory subject supports the diagnosis of Diabetes Mellitus. PERFORMED BY: [place] [address] PATHOLOGIST MANAGER CUSTOMER SERVICE ROMAINE HENDERSON M.D. Performed By: #### G LULS #### Point of Care testing , Glucose [Mass/Vol] 225 mg/dL Normal [facility] Comment on above: Result Comment: [place] Glucose Reference Range is dependent on time and content of last meal. Glucose of more than 200 mg/dL in a nonstressed, ambulatory subject supports the diagnosis of Diabetes Mellitus. PERFORMED BY: [place] [address] PATHOLOGIST MANAGER CUSTOMER SERVICE ROMAINE HENDERSON M.D. Performed By: #### P T, PTT #### [facility] [address] [place] [address] Commemt1 Glu2: Cleaned Meter Normal [facility] Comment on above: Result Comment: PERF ORMED BY: [place] [address] PATHOLOGIST MANAGER CUSTOMER SERVICE ROMAINE HENDERSNO M.D. Performed By: #### G LULS #### Point of Care testing , Glucose [Mass/Vol] 239 mg/dL Normal [facility] Comment on above: Result Comment: [place] om Glucose Reference Range is dependent on time and content of last meal. Glucose of more than 200 mg/dL in a nonstressed, ambulatory subject supports the diagnosis of Diabetes Mellitus. Performed By: #### G LULS #### Point of Care testing , Glucose [Mass/Vol] 319 mg/dL Normal [facility] Comment on above: Result Comment: [place] om Glucose Reference Range is dependent on time and content of last meal. Glucose of more than 200 mg/dL in a nonstressed, ambulatory subject supports the diagnosis of Diabetes Mellitus. PERFORMED BY: [place] [address] PATHOLOGIST MANAGER CUSTOMER SERVICE ROMAINE HENDERSON M.D. Performed By: #### P T, PTT #### [facility] [address] [place] [address] [place] Glucose [Mass/volume] in Uri ne by Test stripOrdered By: Alexandra Cheney on 02-01-2025 Glucose Test strip (U) [Mass/Vol] Glucose [Mass/volume] in Urine by Test strip High Normal [facility] Hemoglobin Test strip Ql (U) Ordered By: Alexandra Cheney on 02-01-2025 Hemoglobin Ql (U) Hemoglobin [Presence ] in Urine by Test strip Negative [facility] Hyaline casts [#/area] in Ur ine sediment by Automated countOrdered By: Alexandra Cheney on 02-01-2025 Hyaline casts Auto (Urine sed) [#/Area] Hyaline casts [#/area] in Urine sediment by Automated count High 0-8 [facility] INR in Platelet poor plasma by Coagulation assayOrdered By: Donell Rosenbaum on 02-01-2025 INR Coag (PPP) [Relative time] INR in Platelet poor plasma by Coagulation assay [facility] Comment on above: INR Therapeutic Rang e [...] n Urine by Test strip High Negative [facility] Leukocyte clumps [Presence] in Urine by AutomatedOrdered By: Alexandra Rodas on 02-01-2025 Leukocyte clumps Auto Ql (U) Leukocyte clumps [Presence] in Urine by Automated High None Seen [facility] Leukocyte esterase [Presence ] in Urine by Test stripOrdered By: Alexandra Rodas on 02-01-2025 Leukocyte esterase Test strip Ql (U) Leukocyte esterase [Presence] in Urine by Test strip High Negative [facility] Leukocytes [#/area] in Urine sediment by Automated countOrdered By: Alexandra Cheney on 02-01-2025 WBC Auto (Urine sed) [#/Area] Leukocytes [#/area] in Urine sediment by Automated count 0-4 [facility] Mucus [Presence] in Urine by AutomatedOrdered By: Alexandra Cheney on 02-01-2025 Mucus Auto Ql (U) Mucus [Presence] in Urine by Automated Abnormal [facility] Nitrite Test strip Ql (U)Ord ered By: Alexandra Cheney on 02-01-2025 Nitrite Ql (U) Nitrite [Presence] i n Urine by Test strip Negative [facility] No Panel InformationOrdered By: Alec Alvarez on 02-01-2025 Bedside Glucose Comment Glu2: cleaned meter [facility] Partial Thromboplastin Timeo n 02-01-2025 aPTT Coag (Bld) [Time] 23.5 s Low 25.1-36.5 [facility] Comment on above: Order Comment: REDRA W, PREVIOUS SAMPLE OVERFILLED Result Comment: A he matocrit value greater than 55% may lead to inaccurate results in coagulation testing. Patients having hematocrit values >55% require a special collection tube for coagulation studies. Please contact the laboratory at [phone] for redraw instructions. PERFORMED BY: [place] [address] PATHOLOGIST MANAGER CUSTOMER SERVICE ROMAINE HENDERSON M.D. Performed By: #### P T, PTT #### [facility] [address] [place] [address] Protein Test strip (U) [Mass /Vol]Ordered By: Alexandra Cheney on 02-01-2025 Protein (U) [Mass/Vol] Protein [Mass/vol ume] in Urine by Test strip High Negative [facility] Prothrombin Time INRon 02-01 INR Coag (PPP) [Relative time] 1.2 {INR} Normal [facility] Comment on above: Order Comment: [...] Performed By: #### P T, PTT #### [facility] [address] [place] [address] PT Coag (PPP) [Time] 13.4 s High 9.0-12.9 [facility] Comment on above: Order Comment: REDRA W, PREVIOUS SAMPLE OVERFILLED Result Comment: A he matocrit value greater than 55% may lead to inaccurate results in coagulation testing. Patients having hematocrit values >55% require a special collection tube for coagulation studies. Please contact the laboratory at [phone] for redraw instructions. Performed By: #### P T, PTT #### [facility] [address] Prothrombin time (PT)Ordered By: Donell Rosenbaum on 02-01-2025 PT Coag (PPP) [Time] Prothrombin time (PT) High 9.0- 12.9 [facility] Comment on above: A hematocrit value g reater than 55% may lead to inaccurate results in coagulation testing. Patients having hematocrit values >55% require a special collection tube for coagulation studies. Please contact the laboratory at [phone] for redraw instructions. Specific gravity Test strip (U) [Rel density]Ordered By: Alexandra Cheney on 02-01-2025 Specific gravity (U) [Rel density] Specific gravity of Urine by Test strip 1.001-1.03 0 [facility] Urobilinogen Test strip (U) [Mass/Vol]Ordered By: Alexandra Cheney on 02-01-2025 Urobilinogen (U) [Mass/Vol] Urobilinogen [Mass/volume] in Urine by Test strip Normal [facility] aPTT in Platelet poor plasma by Coagulation assayOrdered By: Donell Rosenbaum on 02-01-2025 aPTT Coag (PPP) [Time] Activated partial thromboplastin time (aPTT) in platelet poor plasma by coagulation a Low 25.1-36.5 [facility] Comment on above: A hematocrit value g reater than 55% may lead to inaccurate results in coagulation testing. Patients having hematocrit values >55% require a special collection tube for coagulation studies. Please contact the laboratory at [phone] for redraw instructions. pH Test strip (U)Ordered By: Alexandra Cheney on 02-01-2025 pH (U) pH of Urine by Test strip 5.0-9.0 [facility] ECG 12 lead ECGon 01-31-2025 ECG 12 lead ECG [facility] Main [place] [id number] Electrocardiograph Report Signed Patient: Fatuma Fair MR#: [id number] : 1945 Acct:[id number] Age/Sex: 80 / F ADM Date: 01/29/25 Loc: 4N Room: [address] [place] [address] Type: ADM IN Attending Dr: Alec Alvarez [...] ) Abnormal ECG Confirmed by Saida Ziegler ([id number]) on 01/31/2025 2:36:50 PM Referred By: Electronically Signed By: Saida Ziegler Transcribed By: MUS Signed By Saida Ziegler MD 5 1436 Normal [facility] ECH echo transthoracicon ECH echo transthoracic [place] [id number] Echocardiogram Signed Patient: Fatuma Fair MR#: [id number] : 1945 Acct:[id number] Age/Sex: 80 / F ADM Date: 01/29/25 Loc: 4N Room: [address] [place] [address] Type: ADM IN Attending Dr: Alec Alvarez [...] Elkin Tijerina MD 01/31/25 1700 Normal [facility] Glucose Poct Glucometerson 0 01-31-2025 Glucose [Mass/Vol] 352 mg/dL Normal [facility] Comment on above: Result Comment: [place] Glucose Reference Range is dependent on time and content of last meal. Glucose of more than 200 mg/dL in a nonstressed, ambulatory subject supports the diagnosis of Diabetes Mellitus. PERFORMED BY: [place] [id number] PATHOLOGIST MANAGER CUSTOMER SERVICE ROMAINE HENDERSON M.D. Performed By: #### P T, PTT #### [address] Glucose [Mass/Vol] 314 mg/dL Normal [facility] Comment on above: Result Comment: [place] om Glucose Reference Range is dependent on time and content of last meal. Glucose of more than 200 mg/dL in a nonstressed, ambulatory subject supports the diagnosis of Diabetes Mellitus. PERFORMED BY: [place] [address] PATHOLOGIST MANAGER CUSTOMER SERVICE ROMAINE HENDERSON M.D. Performed By: #### P T, PTT #### [address] Glucose [Mass/Vol] 288 mg/dL Normal [facility] Comment on above: Result Comment: [place] om Glucose Reference Range is dependent on time and content of last meal. Glucose of more than 200 mg/dL in a nonstressed, ambulatory subject supports the diagnosis of Diabetes Mellitus. PERFORMED BY: [place] [address] PATHOLOGIST MANAGER CUSTOMER SERVICE ROMAINE HENDERSON M.D. Performed By: #### P T, PTT #### [address] Glucose [Mass/Vol] 325 mg/dL Normal [facility] Comment on above: Result Comment: [place] om Glucose Reference Range is dependent on time and content of last meal. Glucose of more than 200 mg/dL in a nonstressed, ambulatory subject supports the diagnosis of Diabetes Mellitus. PERFORMED BY: [place] [id number] PATHOLOGIST MANAGER CUSTOMER SERVICE ROMAINE HENDERSON M.D. Performed By: #### G LULS #### Point of Care testing , Glucose [Mass/Vol] 325 mg/dL Normal [facility] Comment on above: Result Comment: [place] om Glucose Reference Range is dependent on time and content of last meal. Glucose of more than 200 mg/dL in a nonstressed, ambulatory subject supports the diagnosis of Diabetes Mellitus. PERFORMED BY: [place] [id number] PATHOLOGIST MANAGER CUSTOMER SERVICE ROMAINE HENDERSON M.D. Performed By: #### G LULS #### Point of Care testing , Partial Thromboplastin Timeo n 01-31-2025 aPTT Coag (Bld) [Time] 24.9 s Low 25.1-36.5 [facility] Comment on above: Result Comment: A he matocrit value greater than 55% may lead to inaccurate results in coagulation testing. Patients having hematocrit values >55% require a special collection tube for coagulation studies. Please contact the laboratory at [phone] for redraw instructions. PERFORMED BY: [place] [address] PATHOLOGIST MANAGER CUSTOMER SERVICE ROMAINE HENDERSON M.D. Performed By: #### P T, PTT #### [address] Prothrombin Time INRon 01-31 INR Coag (PPP) [Relative time] 1.4 {INR} Normal [facility] Comment on above: Result Comment: [...] Performed By: #### P T, PTT #### [address] PT Coag (PPP) [Time] 15.5 s High 9.0-12.9 [facility] Comment on above: Result Comment: A he matocrit value greater than 55% may lead to inaccurate results in coagulation testing. Patients having hematocrit values >55% require a special collection tube for coagulation studies. Please contact the laboratory at [phone] for redraw instructions. Performed By: #### P T, PTT #### [address] X-ray reportOrdered By: Brody Alex on 01-31-2025 Study report [facility] [place] [address] [place] [address] XRay Report Signed Patient: Fatuma Fair MR#: [id number] : 1945 Acct:[id number] Age/Sex: 80 / F ADM Date: 5 Loc: 4N Room: [address] [place] [address] Type: ADM IN Attending Dr: Alec Alvarez [...] Devin Alex M.D.01/31/2025 2:41 PM Dictation Location: [facility] [address]- Transcribed By: [facility] 01/31/25 1441 Dictated By: Devin Alex MD 01/31/25 1440 Signed By: 01/31/[address] [place] [address] Work Phone: XR chest 1V portableon 01-31 XR chest 1V portable [facility] [place] [address] XRay Report Signed Patient: Fatuma Fair MR#: [id number] : 1945 Acct:[id number] Age/Sex: 80 / F ADM Date: 01/29/25 Loc: Room: [address] [place] [address] Type: ADM IN Attending Dr: Alec Alvarez [...] Devin Alex M.D.01/31/2025 2:41 PM Dictation Location: [place] [address] Transcribed By: [facility] 01/31/25 1441 Dictated By: Devin Alex MD 01/31/25 1440 Signed By: 01/31/25 1441 Normal [facility] Glucose Poct Glucometerson 0 01-30-2025 Glucose [Mass/Vol] 328 mg/dL Normal [facility] Comment on above: Result Comment: [facility] Glucose Reference Range is dependent on time and content of last meal. Glucose of more than 200 mg/dL in a nonstressed, ambulatory subject supports the diagnosis of Diabetes Mellitus. PERFORMED BY: [address] [place] [address] PATHOLOGIST MANAGER CUSTOMER SERVICE ROMAINE HENDERSON M.D. Performed By: #### G LULS #### Point of Care testing , Glucose [Mass/Vol] 313 mg/dL Normal [facility] Comment on above: Result Comment: [facility] Glucose Reference Range is dependent on time and content of last meal. Glucose of more than 200 mg/dL in a nonstressed, ambulatory subject supports the diagnosis of Diabetes Mellitus. PERFORMED BY: [address] [place] [address] PATHOLOGIST MANAGER CUSTOMER SERVICE ROMAINE HENDERSON M.D. Performed By: #### G LULS #### Point of Care testing , Glucose [Mass/Vol] 326 mg/dL Normal [facility] Comment on above: Result Comment: [facility] Glucose Reference Range is dependent on time and content of last meal. Glucose of more than 200 mg/dL in a nonstressed, ambulatory subject supports the diagnosis of Diabetes Mellitus. PERFORMED BY: [address] [place] [address] PATHOLOGIST MANAGER CUSTOMER SERVICE MOHAMED M EL-FAKHARANY M.D. Performed By: #### P T, PTT #### [facility] [address] [place] [address] [place] Glucose [Mass/Vol] 249 mg/dL Normal [facility] Comment on above: Result Comment: [facility] Glucose Reference Range is dependent on time and content of last meal. Glucose of more than 200 mg/dL in a nonstressed, ambulatory subject supports the diagnosis of Diabetes Mellitus. PERFORMED BY: [place] [address] PATHOLOGIST MANAGER CUSTOMER SERVICE ROMAINE HENDERSON M.D. Performed By: #### G LULS #### Point of Care testing , X-ray reportOrdered By: Ba Pinto on 01-30-2025 Study report [facility] [place] [address] [place] [address] XRay Report Signed Patient: Fatuma Fair MR#: [id number] : 1945 Acct:[id number] Age/Sex: 80 / F ADM Date: 5 Loc: Room: [address] [place] [address] Type: ADM IN Attending Dr: Alec Alvarez [...] Garrett Pinto M.D.01/30/2025 4:19 PM Dictation Location: [facility] Transcribed By: JORGE 01/30/25 1619 Dictated By: Garrett Pinto DO 01/30/25 1554 Signed By: 01/30/25 1619 [facility] XR lumbar spine 2-3V*on 01-20 XR lumbar spine 2-3V* [facility] [place] [address] [place] [address] XRay Report Signed Patient: Fatuma Fair MR#: [id number] : 1945 Acct:[id number] Age/Sex: 80 / F ADM Date: 01/29/25 Loc: Room: [address] [place] [address] Type: ADM IN Attending Dr: Alec Alvarez [...] Garrett Pinto M.D.01/30/2025 4:19 PM Dictation Location: [facility] Transcribed By: JORGE 01/30/25 1619 Dictated By: Garrett Pinto DO 01/30/25 1554 Signed By: 01/30/25 1619 Normal [facility] A1C with Estimated Average Genesis cabrera 01-29-2025 Glucose [Mass/Vol] 203 mg/dL Normal [facility] Comment on above: Result Comment: PERF ORMED BY: [facility] [place] [address] PATHOLOGIST MANAGER CUSTOMER SERVICE ROMAINE HENDERSON M.D. Performed By: #### G LULS #### Point of Care testing , HbA1c (Bld) [Mass fraction] 8.7 % High 4.3-5.6 [facility] Comment on above: Result Comment: Incr eased risk for diabetes: 5.7 - 6.4 diabetes: >6.4 glycemic control for adults with diabetes: <7.0 Performed By: #### G LULS #### Point of Care testing , Basic Metabolic Panelon 01-20 Anion gap [Moles/Vol] 11.7 mmol/L Normal 6.0-15.0 [facility] Comment on above: Performed By: #### G LULS #### Point of Care testing , Calcium [Mass/Vol] 9.1 mg/dL Normal 8.6-10.3 [facility] Comment on above: Performed By: #### G LULS #### Point of Care testing , Chloride [Moles/Vol] 100 mmol/L Normal 98-107 [facility] Comment on above: Performed By: #### G LULS #### Point of Care testing , CO2 [Moles/Vol] 25.4 mmol/L Normal 21.0-31.0 [facility] Comment on above: Performed By: #### G LULS #### Point of Care testing , Creatinine [Mass/Vol] 0.78 mg/dL Normal 0.60-1.20 [facility] Comment on above: Performed By: #### G LULS #### Point of Care testing , Creatinine Clr Calc Pharmacy 48.43 Normal [facility] Comment on above: Performed By: #### G LULS #### Point of Care testing , GFR/1.73 sq M.predicted MDRD (S/P/Bld) [Vol rate/Area] mL/min/{1.73_m2} Normal [facility] Comment on above: Performed By: #### G LULS #### Point of Care testing , Glucose [Mass/Vol] 263 mg/dL High 70-100 [facility] Comment on above: Result Comment: [place] Glucose Reference Range is dependent on time and content of last meal. Glucose of more than 200 mg/dL in a nonstressed, ambulatory subject supports the diagnosis of Diabetes Mellitus. ADA recommended reference range Performed By: #### G LULS #### Point of Care testing , Potassium [Moles/Vol] 4.1 mmol/L Normal 3.5-5.1 [facility] Comment on above: Performed By: #### G LULS #### Point of Care testing , Sodium [Moles/Vol] 133 mmol/L Low 136-145 [facility] Comment on above: Performed By: #### G LULS #### Point of Care testing , Urea nitrogen [Mass/Vol] 31 mg/dL High 7-25 [facility] Comment on above: Performed By: #### G LULS #### Point of Care testing , Basophils Auto (Bld) [#/Vol] Ordered By: Tiffany Guy on 01-29-2025 Basophils (Bld) [#/Vol] Automated basophil count 0.0-0.2 [facility] Basophils/100 WBC Auto (Bld) Ordered By: Tiffany Guy on 01-29-2025 Basophils/100 WBC (Bld) Automated basophil % . [facility] Blood estimated average gluc ose determination by estimation from glycated hemoglobinOrdered By: Tiffany Guy on 01-29-2025 Average glucose Estimated from glycated hemoglobin (Bld) [Mass/Vol] Glucose mean value [Mass/volume] in Blood Estimated from glycated hemoglobin [facility] Calcium [Mass/volume] in Ser um or PlasmaOrdered By: Tiffany Guy on 01-29-2025 Calcium [Mass/Vol] Calcium [Mass/volume ] in Serum or Plasma 8.6-10.3 [facility] Carbon dioxide, total [Moles /volume] in Serum or PlasmaOrdered By: Tiffany Guy on 01-29-2025 CO2 [Moles/Vol] Carbon dioxide, tota l [Moles/volume] in Serum or Plasma 21.0-31.0 [facility] Chloride [Moles/volume] in S patricia or PlasmaOrdered By: Tiffany Guy on 01-29-2025 Chloride [Moles/Vol] Chloride [Moles/vol ume] in Serum or Plasma 98-107 [facility] Complete Blood Count Auto Di ffon 01-29-2025 Basophils (Bld) [#/Vol] 0.0 10*3/uL Normal 0.0-0.2 [facility] Comment on above: Result Comment: PERF ORMED BY: [place] [address] PATHOLOGIST MANAGER CUSTOMER SERVICE ROMAINE HENDERSON M.D. Performed By: #### C UU #### [address] Basophils/100 WBC (Bld) 0.2 % Normal . [facility] Comment on above: Performed By: #### C UU #### [address] Eosinophils (Bld) [#/Vol] 0.0 10*3/uL Normal 0.0-0.45 [facility] Comment on above: Performed By: #### C UU #### [address] Eosinophils/100 WBC (Bld) 0.3 % Normal . [facility] Comment on above: Performed By: #### C UU #### [address] Erythrocyte distribution width (RBC) [Ratio] 13.1 % Normal 11.9-15.3 [facility] Comment on above: Performed By: #### C UU #### [address] [address] [place] Hematocrit (Bld) [Volume fraction] 38.2 % Normal 34.0-46.4 [facility] Comment on above: Performed By: #### C UU #### [address] Hemoglobin (Bld) [Mass/Vol] 13.1 g/dL Normal 11.8-15.4 [facility] Comment on above: Performed By: #### C UU #### [address] Lymphocytes (Bld) [#/Vol] 0.7 10*3/uL Low 1.00-4.8 [facility] Comment on above: Performed By: #### C UU #### [address] Lymphocytes/100 WBC (Bld) 6.5 % Normal . [facility] Comment on above: Performed By: #### C UU #### [address] MCH (RBC) [Entitic mass] 34.2 pg Normal 24.7-34.3 [facility] Comment on above: Performed By: #### C UU #### [address] MCV (RBC) [Entitic vol] 100.1 fL High 80-100 [facility] Comment on above: Performed By: #### C UU #### [address] Mean Corpuscular HGB Conc 34.2 g/dL Normal 32.0-35.0 [facility] Comment on above: Performed By: #### C UU #### [address] Monocytes (Bld) [#/Vol] 0.8 10*3/uL Normal 0.0-0.8 [facility] Comment on above: Performed By: #### C UU #### [address] Monocytes/100 WBC (Bld) 7.1 % Normal . [facility] Comment on above: Performed By: #### C UU #### [facility] [address] [place] [address] [place] Neutrophils (Bld) [#/Vol] 9.5 10*3/uL High 1.8-7.7 [facility] Comment on above: Performed By: #### C UU #### [facility] [address] [place] [address] [place] Neutrophils/100 WBC (Bld) 85.9 % Normal . [facility] Comment on above: Performed By: #### C UU #### [facility] [address] NRBC% 0.0 /100{WBC} Normal 0-0.5 [facility] Comment on above: Performed By: #### C UU #### [facility] [address] Platelet mean volume (Bld) [Entitic vol] 8.9 fL Normal 6.3-10.7 [facility] Comment on above: Performed By: #### C UU #### [facility] [address] [place] [address] [place] Platelets (Bld) [#/Vol] 178 10*3/uL Normal 150-450 [facility] Comment on above: Performed By: #### C UU #### [facility] [address] [place] [address] [place] RBC (Bld) [#/Vol] 3.82 10*6/uL Normal 3.60-5.00 [facility] Comment on above: Performed By: #### C UU #### [facility] [address] [place] [address] [place] WBC (Bld) [#/Vol] 11.0 10*3/uL Normal 3.8-11.6 [facility] Comment on above: Performed By: #### C UU #### [address] Creatinine [Mass/volume] in Serum or PlasmaOrdered By: Tiffany Guy on 01-29-2025 Creatinine [Mass/Vol] Creatinine [Mass/v olume] in Serum or Plasma 0.60-1.20 [facility] Eosinophils Auto (Bld) [#/Vo l]Ordered By: Tiffany Guy on 01-29-2025 Eosinophils (Bld) [#/Vol] Automated eosinophil count 0.0-0.45 [facility] Eosinophils/100 WBC Auto (Bl d)Ordered By: Tiffany Guy on 01-29-2025 Eosinophils/100 WBC (Bld) Automated eosinophil % . [facility] Erythrocyte distribution wid th Auto (RBC) [Ratio]Ordered By: Tiffany Guy on 01-29-2025 Erythrocyte distribution width (RBC) [Ratio] Erythrocyte distribution width [Ratio] by Automated count 11.9-15.3 [facility] Glucose Glucometer (BldC) [M ass/Vol]Ordered By: Alec Alvarez on 01-29-2025 Glucose [Mass/Vol] Capillary blood gluc ose measurement by glucometer (mass/volume) [facility] Comment on above: Random Glucose Refer ence Range is dependent on time and content of last meal. Glucose of more than 200 mg/dL in a nonstressed, ambulatory subject supports the diagnosis of Diabetes Mellitus. Glucose Poct Glucometerson 0 01-29-2025 Glucose [Mass/Vol] 281 mg/dL Normal [facility] Comment on above: Result Comment: [facility] Glucose Reference Range is dependent on time and content of last meal. Glucose of more than 200 mg/dL in a nonstressed, ambulatory subject supports the diagnosis of Diabetes Mellitus. PERFORMED BY: [place] [address] PATHOLOGIST MANAGER CUSTOMER SERVICE ROMAINE HENDERSON M.D. Performed By: #### C UU #### [address] Glucose [Mass/Vol] 247 mg/dL Normal [facility] Comment on above: Result Comment: [facility] Glucose Reference Range is dependent on time and content of last meal. Glucose of more than 200 mg/dL in a nonstressed, ambulatory subject supports the diagnosis of Diabetes Mellitus. PERFORMED BY: [place] [address] PATHOLOGIST MANAGER CUSTOMER SERVICE ROMAINE HENDERSON M.D. Performed By: #### G DESHAWN #### Point of Care testing , Glucose [Mass/volume] in Ser um or PlasmaOrdered By: Tiffany Guy on 01-29-2025 Glucose [Mass/Vol] Glucose [Mass/volume ] in Serum or Plasma High 70-100 [facility] Comment on above: ADA recommended refe rence rangeRandom Glucose Reference Range is dependent on time and content of last meal. Glucose of more than 200 mg/dL in a nonstressed, ambulatory subject supports the diagnosis of Diabetes Mellitus. Hematocrit Auto (Bld) [Volum e fraction]Ordered By: Tiffany Guy on 01-29-2025 Hematocrit (Bld) [Volume fraction] Hematocrit [Volume Fraction] of Blood by Automated count 34.0-46.4 [facility] Hemoglobin A1c/Hemoglobin.to bárbara in BloodOrdered By: Tiffany Guy on 01-29-2025 HbA1c (Bld) [Mass fraction] Hemoglobin A1c percentage High 4.3-5.6 [facility] Comment on above: Increased risk for d iabetes: 5.7 - 6.4diabetes: >6.4glycemic control for adults with diabetes: <7.0 Hemoglobin [Mass/volume] in BloodOrdered By: Tiffany Guy on 01-29-2025 Hemoglobin (Bld) [Mass/Vol] Hemoglobin [Mass/volume] in Blood 11.8-15.4 [facility] INR in Platelet poor plasma by Coagulation assayOrdered By: Sandy Salcido on 01-29-2025 INR Coag (PPP) [Relative time] INR in Platelet poor plasma by Coagulation assay [facility] Comment on above: INR Therapeutic Rang e [...] erythrocytes in Blood by Automated coun 3.8-11.6 [facility] Lymphocytes Auto (Bld) [#/Vo l]Ordered By: Tiffany Guy on 01-29-2025 Lymphocytes (Bld) [#/Vol] Lymphocytes [#/volume] in Blood by Automated count Low 1.00-4.8 [facility] Lymphocytes/100 WBC Auto (Bl d)Ordered By: Tiffany Guy on 01-29-2025 Lymphocytes/100 WBC (Bld) Lymphocytes/100 leukocytes in Blood by Automated count . [facility] MCH Auto (RBC) [Entitic mass ]Ordered By: Tiffany Guy on 01-29-2025 MCH (RBC) [Entitic mass] MCH [Entitic mass] by Automated count 24.7-34.3 [facility] MCHC Auto (RBC) [Mass/Vol]Or dered By: Tiffany Guy on 01-29-2025 MCHC (RBC) [Mass/Vol] MCHC [Mass/volume] by Automated count 32.0-35.0 [facility] MCV Auto (RBC) [Entitic vol] Ordered By: Tiffany Guy on 01-29-2025 MCV (RBC) [Entitic vol] MCV [Entitic volume] by Automated count High 80-100 [facility] MR lumbar spine wo conon MR lumbar spine wo con [facility] [place] [address] MRI Report Signed Patient: Fatuma Fair MR#: [id number] : 1945 Acct:[id number] Age/Sex: 80 / F ADM Date: 01/29/25 Loc: Room: [address] [place] [address] Type: ADM IN Attending Dr: Alec Alvarez MD Copies to: DO Alec Luna MD Ordering Provider: Donell Rosenbaum DO Date of Service: 01/29/25 MR/MR lumbar spine wo con: fall w T12 burst fx MRI lumbar spine performed without contrast INDICATION: T12 burst fracture MR/MR lumbar spine wo con IMPRESSION: CT lumbar spine from [facility] 01/28/2025 FINDINGS: T12 burst fracture with 25-30% [...] Devin Alex M.D.01/29/2025 1:56 PM Dictation Location: [place] [address] Transcribed By: [facility] 01/29/25 1356 Dictated By: Devin Alex MD 01/29/25 1344 Signed By: 01/29/25 1356 Normal [facility] Magnesiumon 01-29-2025 Magnesium [Mass/Vol] 1.8 mg/dL Low 1.9-2.7 [facility] Comment on above: Result Comment: PERF ORMED BY: [place] [address] PATHOLOGIST MANAGER CUSTOMER SERVICE ROMAINE HENDERSON M.D. Performed By: #### G LUISIDRA #### Point of Care testing , Magnesium [Mass/volume] in S patricia or PlasmaOrdered By: Tiffany Guy on 01-29-2025 Magnesium [Mass/Vol] Magnesium [Mass/vol ume] in Serum or Plasma Low 1.9-2.7 [facility] Magnetic resonance imaging r eportOrdered By: Devin Alex on 01-29-2025 Study report [facility] [place] [address] MRI Report Signed Patient: Fatuma Fair MR#: [id number] : 1945 Acct:[id number] Age/Sex: 80 / F ADM Date: 5 Loc: Room: [address] [place] [address] Type: ADM IN Attending Dr: Alec Alvarez MD Copies to: DO Alec Luna MD~ Ordering Provider: Donell Rosenbaum DO Date of Service: 01/29/25 MR/MR lumbar spine wo con: fall w T12 burst fx MRI lumbar spine performed without contrast INDICATION: T12 burst fracture MR/MR lumbar spine wo con IMPRESSION: CT lumbar spine from [facility] 01/28/2025 FINDINGS: T12 burst fracture with 25-30% [...] Devin Alex M.D.01/29/2025 1:56 PM Dictation Location: [place] [address] Transcribed By: [facility] 01/29/25 135 Dictated By: Devin Alex MD 01/29/25 1344 Signed By: 01/29/25 1356 [facility] Work Phone: Monocytes Auto (Bld) [#/Vol] Ordered By: Tiffany Guy on 01-29-2025 Monocytes (Bld) [#/Vol] Automated blood monocyte count 0.0-0.8 [facility] Monocytes/100 WBC Auto (Bld) Ordered By: Tiffany Guy on 01-29-2025 Monocytes/100 WBC (Bld) Automated monocyte % . [facility] Neutrophils Auto (Bld) [#/Vo l]Ordered By: Tiffany Guy on 01-29-2025 Neutrophils (Bld) [#/Vol] Neutrophils [#/volume] in Blood by Automated count High 1.8-7.7 [facility] Neutrophils/100 WBC Auto (Bl d)Ordered By: Tiffany Guy on 01-29-2025 Neutrophils/100 WBC (Bld) Automated neutrophil % . [facility] No Panel InformationOrdered By: Tiffany Guy on 01-29-2025 Estimated GFR (CKD-EPI) > 60.0 mL/Min [facility] Creatinine Clearance (Chem 48.43 [facility] Nucleated erythrocytes [Pres ence] in Blood by Automated countOrdered By: Tiffany Guy on 01-29-2025 Nucleated RBC Auto Ql (Bld) Nucleated erythrocytes [Presence] in Blood by Automated count 0-0.5 [facility] Platelet mean volume Auto (B ld) [Entitic vol]Ordered By: Tiffany Guy on 01-29-2025 Platelet mean volume (Bld) [Entitic vol] Platelet mean volume [Entitic volume] in Blood by Automated count 6.3-10.7 [facility] Platelets Auto (Bld) [#/Vol] Ordered By: Tiffany Guy on 01-29-2025 Platelets (Bld) [#/Vol] Platelets [#/volume] in Blood by Automated count 150-450 [facility] Potassium [Moles/volume] in Serum or PlasmaOrdered By: Tiffany Guy on 01-29-2025 Potassium [Moles/Vol] Potassium [Moles/v olume] in Serum or Plasma 3.5-5.1 [facility] Procalcitoninon 01-29-2025 Procalcitonin 0.12 ng/mL High 0.00-0.08 [facility] Comment on above: Result Comment: [...] concentrations <2 ng/mL are obtained. Performed at: [address] [id number] Mask Layout Designer: Shari Ruiz MD, Phone: [phone] PERFORMED BY: [facility] [address] [place] [address] PATHOLOGIST MANAGER CUSTOMER SERVICE ROMAINE HENDERSON M.D. Performed By: #### G LULS #### Point of Care testing , Procalcitonin [Mass/volume] in Serum or PlasmaOrdered By: Tiffany Guy on 01-29-2025 Procalcitonin [Mass/Vol] Serum procalcitonin measurement High 0.00-0.08 [facility] Comment on above: A procalcitonin (PCT ) [...] any concentrations <2 ng/mL are obtained.Performed at: [address] [id number] Director: Shari Ruiz MD, Phone: [phone] Prothrombin Time INRon 01-29 INR Coag (PPP) [Relative time] 2.0 {INR} Normal [facility] Comment on above: Result Comment: [...] heart valves: 3 - 4.5 PERFORMED BY: [place] [address] PATHOLOGIST MANAGER CUSTOMER SERVICE ROMAINE HENDERSON M.D. Performed By: #### P T #### [address] PT Coag (PPP) [Time] 22.6 s High 9.0-12.9 [facility] Comment on above: Result Comment: A he matocrit value greater than 55% may lead to inaccurate results in coagulation testing. Patients having hematocrit values >55% require a special collection tube for coagulation studies. Please contact the laboratory at [phone] for redraw instructions. Performed By: #### P T #### [address] [address] [facility] Prothrombin time (PT)Ordered By: Sandy Salcido on 01-29-2025 PT Coag (PPP) [Time] Prothrombin time (PT) High 9.0- 12.9 [facility] Comment on above: A hematocrit value g reater than 55% may lead to inaccurate results in coagulation testing. Patients having hematocrit values >55% require a special collection tube for coagulation studies. Please contact the laboratory at [phone] for redraw instructions. RBC Auto (Bld) [#/Vol]Ordere d By: Tiffany Guy on 01-29-2025 RBC (Bld) [#/Vol] Erythrocytes [#/volu me] in Blood by Automated count 3.60-5.00 [facility] Serum or plasma anion gap de terminationOrdered By: Tiffany Guy on 01-29-2025 Anion gap [Moles/Vol] Serum or plasma an ion gap determination 6.0-15.0 [facility] Sodium [Moles/volume] in Ser um or PlasmaOrdered By: Tiffany Guy on 01-29-2025 Sodium [Moles/Vol] Sodium [Moles/volume ] in Serum or Plasma Low 136-145 [facility] Urea nitrogen [Mass/volume] in Serum or PlasmaOrdered By: Tiffany Guy on 01-29-2025 Urea nitrogen [Mass/Vol] Urea nitrogen [Mass/volume] in Serum or Plasma High 7-25 [facility] Urine Cultureon 01-29-2025 Bacteria identified Cx Nom (U) >100,000 colonies/ml mixed bacterial skin contaminants 2 Days PERFORMED BY: [facility] [address] [place] [id number] PATHOLOGIST MANAGER CUSTOMER SERVICE ROMAINE Thompson [facility] Comment on above: Performed By: #### C UU #### [address] Urine cultureOrdered By: Tati Salcido on 01-29-2025 Bacteria identified Cx Nom (U) Urine culture [facility] WBC Auto (Bld) [#/Vol]Ordere d By: Tiffany Guy on 01-29-2025 WBC (Bld) [#/Vol] Leukocytes [#/volume ] in Blood by Automated count 3.8-11.6 [facility] Basophils Auto (Bld) [#/Vol] on 01-28-2025 Basophils (Bld) [#/Vol] Automated basophil count 0.0-0.1 [facility] Basophils/100 WBC Auto (Bld) on 01-28-2025 Basophils/100 WBC (Bld) Automated basophil % Low 0.2-2.0 [facility] Eosinophils/100 WBC Auto (Bl d)on 01-28-2025 Eosinophils/100 WBC (Bld) Automated eosinophil % Low 0.9-7.0 [facility] Erythrocyte distribution wid th Auto (RBC) [Ratio]on 01-28-2025 Erythrocyte distribution width (RBC) [Ratio] Erythrocyte distribution width [Ratio] by Automated count 11.0-15.0 [facility] Estimated glomerular filtrat ion rate (GFR) non- Americanon 01-28-2025 GFR/1.73 sq M.predicted among non-blacks MDRD (S/P/Bld) [Vol rate/Area] Estimated glomerular filtration rate (GFR) non- Low >=60 mL/min/1.7 3m 2 [facility] Hematocrit Auto (Bld) [Volum e fraction]on 01-28-2025 Hematocrit (Bld) [Volume fraction] Hematocrit [Volume Fraction] of Blood by Automated count 36.0-48.0 [facility] Hemoglobin [Mass/volume] in Bloodon 01-28-2025 Hemoglobin (Bld) [Mass/Vol] Hemoglobin [Mass/volume] in Blood 12.0-16.0 [facility] Laboratory - Chemistry and C hemistry - challengeon 01-28-2025 Calcium [Mass/Vol] 9.6 mg/dL 8.5-10.1 [facility] Chloride [Moles/Vol] 96 mmol/L Low 98-107 [facility] CO2 [Moles/Vol] 27.0 mmol/L 21.0-32.0 [facility] Creatinine [Mass/Vol] 1.17 mg/dL High 0.55-1.[address] [facility] GFR/1.73 sq M.predicted MDRD (S/P/Bld) [Vol rate/Area] 54 mL/min/{1.73_m2} Low >=60 mL/min/1.7 3m 2 [facility] Glucose [Mass/Vol] 308 mg/dL High 74-106 [facility] Potassium [Moles/Vol] 4.0 mmol/L 3.5-5.[address] [facility] Sodium [Moles/Vol] 132 mmol/L Low 136-145 [facility] Urea nitrogen [Mass/Vol] 39.0 mg/dL High 7.0-18.0 [facility] Urea nitrogen/Creatinine [Mass ratio] 33.3 mg/mg [facility] Laboratory - Hematology and Cell countson 01-28-2025 Immature granulocytes/100 WBC (Bld) 0.8 % High 0.0-0.5 [facility] Leukocytes [#/volume] correc london for nucleated erythrocytes in Blood by Automated counon 01-28-2025 WBC corrected for nucl RBC Auto (Bld) [#/Vol] Leukocytes [#/volume] corrected for nucleated erythrocytes in Blood by Automated coun High 4.0-11.0 [facility] Lymphocytes Auto (Bld) [#/Vo l]on 01-28-2025 Lymphocytes (Bld) [#/Vol] Lymphocytes [#/volume] in Blood by Automated count Low 1.2-3.8 [facility] Lymphocytes/100 WBC Auto (Bl d)on 01-28-2025 Lymphocytes/100 WBC (Bld) Lymphocytes/100 leukocytes in Blood by Automated count Low 20.5-60.0 [facility] MCH Auto (RBC) [Entitic mass ]on 01-28-2025 MCH (RBC) [Entitic mass] MCH [Entitic mass] by Automated count High 26.7-34.0 [facility] MCHC Auto (RBC) [Mass/Vol]on 01-28-2025 MCHC (RBC) [Mass/Vol] MCHC [Mass/volume] by Automated count 29.9-35.2 [facility] MCV Auto (RBC) [Entitic vol] on 01-28-2025 MCV (RBC) [Entitic vol] MCV [Entitic volume] by Automated count High 81.0-99.0 [facility] Monocytes Auto (Bld) [#/Vol] on 01-28-2025 Monocytes (Bld) [#/Vol] Automated blood monocyte count High 0.3-0.8 [facility] Monocytes/100 WBC Auto (Bld) on 01-28-2025 Monocytes/100 WBC (Bld) Automated monocyte % 1.7-12.0 [facility] Neutrophils Auto (Bld) [#/Vo l]on 01-28-2025 Neutrophils (Bld) [#/Vol] Neutrophils [#/volume] in Blood by Automated count High 1.4-6.5 [facility] Neutrophils/100 WBC Auto (Bl d)on 01-28-2025 Neutrophils/100 WBC (Bld) Automated neutrophil % High 43.0-75.0 [facility] No Panel Informationon 01-28 Eosinophils # (Auto) 0.0 10 3/uL 0.0-0.[address] [facility] Immature Granulocyte # (Auto) 0.14 10 3/uL High 0.00-0.03 [facility] Platelet mean volume Auto (B ld) [Entitic vol]on 01-28-2025 Platelet mean volume (Bld) [Entitic vol] Platelet mean volume [Entitic volume] in Blood by Automated count 9.5-13.5 [facility] Platelets Auto (Bld) [#/Vol] on 01-28-2025 Platelets (Bld) [#/Vol] Platelets [#/volume] in Blood by Automated count 150-450 [facility] RBC Auto (Bld) [#/Vol]on RBC (Bld) [#/Vol] Erythrocytes [#/volu me] in Blood by Automated count Low 4.20-5.40 [facility] Serum or plasma anion gap de terminationon 01-28-2025 Anion gap [Moles/Vol] Serum or plasma an ion gap determination [facility] Urine Cultureon 01-28-2025 Bacteria identified Cx Nom (U) >100,000 colonies/ml mixed bacterial skin contaminants 2 Days PERFORMED BY: [facility] [address] [address] PATHOLOGIST MANAGER CUSTOMER SERVICE ROMAINE HENDERSON M.D. Normal [facility] Comment on above: Performed By: #### G LULS #### Point of Care testing , Urine cultureOrdered By: Ronald Forbes on 01-28-2025 Bacteria identified Cx Nom (U) Urine culture [facility] XR Femur and Tibia Views for leg lengthon 01-23-2025 Total limb length discrepancy = 0.3 cm Focal area of cortical thickening in the proximal left femur on single AP view. Recommend dedicated left femur radiographs. [facility] EXAMINATION: BONE LENGTH STUDIES, 01/22/2025 10:52 [...] focal cortical thickening proximal left femoral diaphysis. [facility] José Luis Gill D O - [...] AP view. Recommend dedicated left femur radiographs. [facility] XR Femur and Tibia Views for leg lengthOrdered By: José Luis Gill on 01-23-2025 [facility] Work Phone: XR LEG LENGTH EVALUATIONon [...] Luis Gill DO 01/23/25 Final result Normal [facility] XR Femur and Tibia Views for leg lengthon 01-22-2025 Radiology Study observation (narrative) [facility] XR Foot - left 3 Viewson [...] fascia distal to the plantar fascial origin. [facility] Radiology Study observation (narrative) [facility] XR Foot - right 3 Viewson [...] fascia distal to the plantar fascial origin. [facility] Radiology Study observation (narrative) [facility] HbA1c HPLC (Bld) [Mass fract ion]on 01-03-2025 HbA1c (Bld) [Mass fraction] Hemoglobin A1c/Hemoglobin.total in Blood by HPLC [facility] XR FEMUR RIGHT (MIN 2 VIEWS) on 08-15-2024 XR FEMUR RIGHT (MIN 2 VIEWS) EXAMINATION: XRAY VIEWS OF THE RIGHT FEMUR 08/15/2024 2:53 pm COMPARISON: September 24, 2023 HISTORY: ORDERING SYSTEM PROVIDED HISTORY: Closed fracture of shaft of right femur, initial encounter ([facility]) FINDINGS: Interval hardware s/p ORIF mid right femur. Stable total right hip arthroplasty. No acute interval change. Generalized osteopenia. There is atherosclerosis through the soft tissues. IMPRESSION: Status post ORIF right femur fracture. No acute findings. Interpreted by: José Luis Gill DO Signed by: José Luis Gill DO 08/15/24 Final result Normal [facility] Office Visiton 08-11-2024 Follow-up visit [id number] Briseyda Fair José 1945 F Date Provider Department Center 08/11/2024 MATT MEDEIROS [facility] Family History Problem Relation Age of Onset Heart attack Father Stroke Father Family Status - Relation Status Age at Father Level of Service:[address]4911 [place] OFFICE/OUTPATIENT ESTABLISHED LOW MDM 20 MIN Normal [facility] Glucose mean value [Mass/vol ume] in Blood Estimated from glycated hemoglobinon 07-27-2024 Average glucose Estimated from glycated hemoglobin (Bld) [Mass/Vol] 171 mg/dL [facility] Laboratory - Chemistry and C hemistry - challengeon 07-27-2024 TSH Qn 2.479 m[IU]/L 0.358-3.74 0 [facility] Laboratory - Hematology and Cell countson 07-27-2024 HbA1c (Bld) [Mass fraction] 7.6 % High 4.5-6.2 [facility] Comment on above: ADA RECOMMENDED LIMI T 4.0 - 6.0ADA THERAPEUTIC TARGET < 7.0ACTION SUGGESTED> 7.0 Influenza virus B Ag [Presen ce] in Upper respiratory specimen by Rapid immunoassayon 07-18-2024 FLUBV Ag IA.rapid Ql (Nph) Negative [facility] No Panel Informationon 07-18 Influenza Type A (Rapid) Negative [facility] POC SARS CoV-2 Antigen Positive [facility] - Chemistry and C hemistry - challengeon 07-10-2024 Bilirubin Ql (U) Negative [facility] Glucose (U) [Mass/Vol] Negative [facility] Ketones Ql (U) 1.005 [facility] pH (U) 5.0 [pH] [facility] Specific gravity (U) [Rel density] 1.010 [facility] Urobilinogen (U) [Mass/Vol] 0.2 mg/dL [facility] Laboratory - Specimen inform ationon 07-10-2024 Appearance (U) cloudy [facility] Color (U) yellow [facility] Laboratory - Urinalysison Leukocyte esterase Test strip Ql (U) moderate [facility] Nitrite Ql (U) Negative [facility] Protein Ql (U) 4 [facility] No Panel Informationon 07-10 Urine Occult Blood 7.5 [facility] Laboratory - Chemistry and C hemistry - challengeon 05-30-2024 Bilirubin Ql (U) Negative [facility] Glucose (U) [Mass/Vol] Negative [facility] Ketones Ql (U) Negative [facility] pH (U) 5.0 [pH] [facility] Specific gravity (U) [Rel density] 1.010 [facility] Urobilinogen (U) [Mass/Vol] 0.2 mg/dL [facility] Laboratory - Specimen inform ationon 05-30-2024 Appearance (U) cloudy [facility] Color (U) yellow [facility] Laboratory - Urinalysison Leukocyte esterase Test strip Ql (U) ++ [facility] Nitrite Ql (U) Negative [facility] Protein Ql (U) Positive [facility] No Panel Informationon 05-30 Urine Occult Blood +++ [facility] Basophils Auto (Bld) [#/Vol] on 02-25-2024 Basophils (Bld) [#/Vol] 0.1 10 3/uL 0.0-0.1 [facility] Basophils/100 WBC Auto (Bld) on 02-25-2024 Basophils/100 WBC (Bld) 0.9 % 0.2-2.0 [facility] Cholesterol in LDL Calc [Mas s/Vol]on 02-25-2024 Cholesterol in LDL [Mass/Vol] 76.0 mg/dL [facility] Comment on above: <100 mg/dl [id number] 0-129 mg/dl NEAR OR ABOVE [id number] mg/dl BORDERLINE [id number] mg/dl HIGH>190 mg/dl VERY HIGH Cholesterol in VLDL Calc [Ma ss/Vol]on 02-25-2024 Cholesterol in VLDL [Mass/Vol] 19.6 mg/dL [facility] Eosinophils/100 WBC Auto (Bl d)on 02-25-2024 Eosinophils/100 WBC (Bld) 5.1 % 0.9-7.0 [facility] Erythrocyte distribution wid th Auto (RBC) [Ratio]on 02-25-2024 Erythrocyte distribution width (RBC) [Ratio] 14.8 % 11.0-15.0 [facility] Estimated glomerular filtrat ion rate (GFR) non- Americanon 02-25-2024 GFR/1.73 sq M.predicted among non-blacks MDRD (S/P/Bld) [Vol rate/Area] 53 mL/min/{1.73_m2} >=60 [facility] Globulin Calc (S) [Mass/Vol] on 02-25-2024 Globulin (S) [Mass/Vol] 3.7 g/dL [facility] Glucose mean value [Mass/vol ume] in Blood Estimated from glycated hemoglobinon 02-25-2024 Average glucose Estimated from glycated hemoglobin (Bld) [Mass/Vol] 137 mg/dL [facility] Hematocrit Auto (Bld) [Volum e fraction]on 02-25-2024 Hematocrit (Bld) [Volume fraction] 40.0 % 36.0-48.0 [facility] Hemoglobin [Mass/volume] in Bloodon 02-25-2024 Hemoglobin (Bld) [Mass/Vol] 12.9 g/dL 12.0-16.0 [facility] Laboratory - Chemistry and C hemistry - challengeon 02-25-2024 Albumin [Mass/Vol] 3.9 g/dL 3.4-5.0 [facility] ALP [Catalytic activity/Vol] 80 U/L 46-116 [facility] ALT [Catalytic activity/Vol] 45 U/L 14-59 [facility] AST [Catalytic activity/Vol] 34 U/L 15-37 [facility] Bilirubin [Mass/Vol] 0.6 mg/dL 0.2-1.0 [facility] Calcium [Mass/Vol] 9.7 mg/dL 8.5-10.1 [facility] Chloride [Moles/Vol] 103 mmol/L 98-107 [facility] Cholesterol [Mass/Vol] 157 mg/dL <=200 [facility] Cholesterol in HDL [Mass/Vol] 62 mg/dL 40-60 [facility] Comment on above: > or =60 mg/dl - LOW CARDIOVASCULAR RISK<40 mg/dl - HIGH CARDIOVASCULAR RISK CO2 [Moles/Vol] 26.5 mmol/L 21.0-32.0 [facility] Creatinine [Mass/Vol] 1.00 mg/dL 0.55-1.[address] [facility] Free T4 [Mass/Vol] 0.55 ng/dL 0.76-1.46 [facility] GFR/1.73 sq M.predicted MDRD (S/P/Bld) [Vol rate/Area] mL/min/{1.73_m2} >=60 [facility] Glucose [Mass/Vol] 136 mg/dL 74-106 [facility] Potassium [Moles/Vol] 3.9 mmol/L 3.5-5.[address] [facility] Protein [Mass/Vol] 7.6 g/dL 6.4-8.2 [facility] Sodium [Moles/Vol] 141 mmol/L 136-145 [facility] Triglyceride [Mass/Vol] 98 mg/dL <=150 [facility] TSH Qn 13.739 m[IU]/L 0.358-3.74 0 [facility] Urea nitrogen [Mass/Vol] 23.0 mg/dL 7.0-18.0 [facility] Urea nitrogen/Creatinine [Mass ratio] 23.0 mg/mg [facility] Laboratory - Hematology and Cell countson 02-25-2024 HbA1c (Bld) [Mass fraction] 6.4 % 4.5-6.2 [facility] Comment on above: ADA RECOMMENDED LIMI T 4.0 - 6.0ADA THERAPEUTIC TARGET < 7.0ACTION SUGGESTED> 7.0 Immature granulocytes/100 WBC (Bld) 0.2 % 0.0-0.5 [facility] Leukocytes [#/volume] correc london for nucleated erythrocytes in Blood by Automated counon 02-25-2024 WBC corrected for nucl RBC Auto (Bld) [#/Vol] 5.7 10 3/uL 4.0-11.0 [facility] Lymphocytes Auto (Bld) [#/Vo l]on 02-25-2024 Lymphocytes (Bld) [#/Vol] 1.1 10 3/uL 1.2-3.8 [facility] Lymphocytes/100 WBC Auto (Bl d)on 02-25-2024 Lymphocytes/100 WBC (Bld) 19.0 % 20.5-60.0 [facility] MCH Auto (RBC) [Entitic mass ]on 02-25-2024 MCH (RBC) [Entitic mass] 32.1 pg 26.7-34.0 [facility] MCHC Auto (RBC) [Mass/Vol]on 02-25-2024 MCHC (RBC) [Mass/Vol] 32.3 g/dL 29.9-35.[address] [facility] MCV Auto (RBC) [Entitic vol] on 02-25-2024 MCV (RBC) [Entitic vol] 99.5 fL 81.0-99.0 [facility] Microalbumin [Mass/volume] i n Urineon 02-25-2024 Albumin DL <= 20 mg/L (U) [Mass/Vol] mg/dL <=30.0 [facility] Monocytes Auto (Bld) [#/Vol] on 02-25-2024 Monocytes (Bld) [#/Vol] 0.5 10 3/uL 0.3-0.8 [facility] Monocytes/100 WBC Auto (Bld) on 02-25-2024 Monocytes/100 WBC (Bld) 8.6 % 1.7-12.0 [facility] Neutrophils Auto (Bld) [#/Vo l]on 02-25-2024 Neutrophils (Bld) [#/Vol] 3.8 10 3/uL 1.4-6.5 [facility] Neutrophils/100 WBC Auto (Bl d)on 02-25-2024 Neutrophils/100 WBC (Bld) 66.2 % 43.0-75.0 [facility] No Panel Informationon 02-24 Eosinophils # (Auto) 0.3 10 3/uL 0.0-0.[address] [facility] Immature Granulocyte # (Auto) 0.01 10 3/uL 0.00-0.03 [facility] Total Triiodothyronine 117 ng/dL 71-180 [facility] Comment on above: Performed at: [place] [id number] Director: Brad Figueroa PhD, Phone: [phone] Platelet mean volume Auto (B ld) [Entitic vol]on 02-25-2024 Platelet mean volume (Bld) [Entitic vol] 10.3 fL 9.5-13.5 [facility] Platelets Auto (Bld) [#/Vol] on 02-25-2024 Platelets (Bld) [#/Vol] 232 10 3/uL 150-450 [facility] RBC Auto (Bld) [#/Vol]on RBC (Bld) [#/Vol] 4.02 10 6/uL 4.20-5.40 [facility] Serum or plasma albumin/glob ulin mass ratioon 02-25-2024 Albumin/Globulin [Mass ratio] 1.1 {ratio} [facility] Serum or plasma anion gap de terminationon 02-25-2024 Anion gap [Moles/Vol] 15.4 mmol/L [facility] Serum or plasma total choles terol/high density lipoprotein (HDL) cholesterol mass katie 02-25-2024 Cholesterol.total/Chol esterol in HDL [Mass ratio] 2.5 {ratio} [facility] Comment on above: 3.3 - 4.4 LOW RISK4. 4 - 7.1 AVERAGE RISK7.1 - 11.0 MODERATE RISK>11.0 HIGH RISK Office Visiton 02-01-2024 Follow-up visit [id number] Briseyda Fair 1945 F Date Provider Department Center 02/01/2024 SANTIAGO VINSON ALBAN [facility] Family History Problem Relation Age of Onset Heart attack Father Stroke Father Family Status - Relation Status Age at Father Level of Service:17475 [place] OFFICE/OUTPATIENT ESTABLISHED LOW MDM 20 MIN Normal [facility] Office Visiton 11-23-2023 Follow-up visit [id number] Briseyda Fair 1945 F Date Provider Department Center 11/23/2023 Elbert6-KARLEE PEARSON ALBAN [facility] Family History Problem Relation Age of Onset Heart attack Father Stroke Father Family Status - Relation Status Age at Father Level of Service:94159 [place] OFFICE/OUTPATIENT ESTABLISHED MOD MDM 30 MIN Normal [facility] HPon 10-21-2023 [facility] Electrophysiology Consult Note Reason for visit: afib, [...] no pal (more content not included)... Normal [facility] NURSNOTEon 10-21-2023 NURSNOTE Report called to [facility] Normal [facility] GLUCOSE POCon 09-30-2023 Glucose [Mass/Vol] 162 mg/dL High [address] Comment on above: Performed By: #### A NION, CBCWD, ICAL, EGFR1, BMPX #### [facility] [address] [place] [address] GLUCOSE POCon 09-29-2023 Glucose [Mass/Vol] 255 mg/dL High 70-108 [facility] Comment on above: Performed By: #### P OCGL #### [employer] [address] [place] [address] Glucose [Mass/Vol] 172 mg/dL High [address] Comment on above: Performed By: #### P OCGL #### [employer] [address] [place] [address] Glucose [Mass/Vol] 248 mg/dL High [address] [facility] Comment on above: Performed By: #### A ALINE SOLIS, ICAL, EGFR1, BMPX #### [facility] [address] [place] [address] GLUCOSE POCon 09-28-2023 Glucose [Mass/Vol] 200 mg/dL [address] Comment on above: Performed By: #### A WILL, CBCWD, ICAL, EGFR1, BMPX #### [facility] [address] [place] [address] Glucose [Mass/Vol] 226 mg/dL High [address] [place] [address] Comment on above: Performed By: #### A WILL, ALINE, ICAL, EGFR1, BMPX #### [facility] [address] [place] [address] Glucose [Mass/Vol] 230 mg/dL [address] Comment on above: Performed By: #### A ALINE SOLIS, ICAL, EGFR1, BMPX #### [facility] [address] [address] Glucose [Mass/Vol] 204 mg/dL High [address] [place] [address] Comment on above: Performed By: #### A ALINE SOLIS, ICAL, EGFR1, BMPX #### [address] [address] ANION GAPon 09-27-2023 Anion gap [Moles/Vol] 9.0 mmol/L Normal 8.0-16.0 [facility] Comment on above: Result Comment: ANIO N GAP = Sodium -(Chloride + CO2) Performed By: #### A ALINE SOLIS, ICAL, EGFR1, BMPX #### [facility] [address] [address] BASIC METABOL PANELon 2022 Calcium [Mass/Vol] 8.5 mg/dL Normal 8.5-10.5 [facility] Comment on above: Performed By: #### A WILL CBCWD, ICAL, EGFR1, BMPX #### [address] [address] Chloride [Moles/Vol] 102 mmol/L Normal 98-111 [facility] Comment on above: Performed By: #### A WILL, BRIANNEWD, ICAL, EGFR1, BMPX #### [facility] [address] [place] [address] CO2 [Moles/Vol] 25 mmol/L Normal 23-33 [facility] Comment on above: Performed By: #### A WILL, CBCWD, ICAL, EGFR1, BMPX #### [facility] [address] [place] [address] Creatinine [Mass/Vol] 0.7 mg/dL Normal 0.4-1.2 [facility] Comment on above: Performed By: #### A WILL CBCWD, ICAL, EGFR1, BMPX #### [facility] [address] [place] [address] Glucose [Mass/Vol] 232 mg/dL High 70-108 [facility] Comment on above: Performed By: #### A WILL CBCTUAN, ICAL, EGFR1, BMPX #### [address] [address] POTASSIUM WITH REFLEX MG 4.1 meq/L Normal 3.5-5.2 [facility] Comment on above: Performed By: #### A WILL, CBCWD, ICAL, EGFR1, BMPX #### [address] [address] Sodium [Moles/Vol] 136 mmol/L Normal 135-145 [facility] Comment on above: Performed By: #### A WILL CBCWD, ICAL, EGFR1, BMPX #### [facility] [employer] [address] [place] [address] Urea nitrogen [Mass/Vol] 27 mg/dL High 7-22 [facility] Comment on above: Performed By: #### A WILL, CBCWD, ICAL, EGFR1, BMPX #### [facility] [employer] [address] [place] [address] CBC WITH DIFFERENTIALon 11-0 6-3 ABS BASOPHILS 0.0 thou/mm3 Normal 0.0-0.1 [facility] Comment on above: Performed By: #### A ALINE SOLIS, ICAL, EGFR1, BMPX #### [address] [address] ABS EOSINOPHILS 0.0 thou/mm3 Normal 0.0-0.4 [facility] Comment on above: Performed By: #### A WILL CBCTUAN, ICAL, EGFR1, BMPX #### [address] [address] ABS IMMATURE GRANS (IG) 0.08 thou/mm3 High 0.00-0.07 [facility] Comment on above: Performed By: #### A ALINE SOLIS, ICAL, EGFR1, BMPX #### [address] [address] ABS LYMPHOCYTES 0.7 thou/mm3 Low 1.0-4.8 [facility] Comment on above: Performed By: #### A WILL CBCTUAN, ICAL, EGFR1, BMPX #### [address] [address] ABS MONOCYTES 0.5 thou/mm3 Normal 0.4-1.3 [facility] Comment on above: Performed By: #### A WILL CBCTUAN, ICAL, EGFR1, BMPX #### [address] [address] ABS NEUTROPHILS 9.6 thou/mm3 High 1.8-7.7 [facility] Comment on above: Performed By: #### A WILL CBCTUAN, ICAL, EGFR1, BMPX #### [address] [address] Basophils/100 WBC (Bld) 0.1 % Normal [facility] Comment on above: Performed By: #### A WILL, CBCWD, ICAL, EGFR1, BMPX #### [address] [address] Eosinophils/100 WBC (Bld) 0.0 % Normal [facility] Comment on above: Performed By: #### A WILL CBCWD, ICAL, EGFR1, BMPX #### [place] [address] Erythrocyte distribution width (RBC) [Ratio] 13.2 % Normal 11.5-14.5 [facility] Comment on above: Performed By: #### A WILL, CBCWD, ICAL, EGFR1, BMPX #### [address] [address] Hematocrit (Bld) [Volume fraction] 24.4 % Low 37.0-47.0 [facility] Comment on above: Performed By: #### A WILL, CBCWD, ICAL, EGFR1, BMPX #### [place] [address] Hemoglobin (Bld) [Mass/Vol] 7.7 g/dL Low 12.0-16.0 [facility] Comment on above: Performed By: #### A WILL, CBCTUAN, ICAL, EGFR1, BMPX #### [place] [address] IMMATURE GRANS (IG) 0.7 % Normal [facility] Comment on above: Performed By: #### A WILL, CBCTUAN, ICAL, EGFR1, BMPX #### [place] [address] Lymphocytes/100 WBC (Bld) 6.4 % Normal [facility] Comment on above: Performed By: #### A WILL, CBCWD, ICAL, EGFR1, BMPX #### [place] [address] MCH (RBC) [Entitic mass] 32.9 pg Normal 26.0-33.0 [facility] Comment on above: Performed By: #### A WILL, CBCWD, ICAL, EGFR1, BMPX #### [place] [id number] MCHC (RBC) [Mass/Vol] 31.6 g/dL Low 32.2-35.5 [facility] Comment on above: Performed By: #### A WILL, CBCWD, ICAL, EGFR1, BMPX #### [address] [place] [address] MCV (RBC) [Entitic vol] 104.3 fL High 81.0-99.0 [facility] Comment on above: Performed By: #### A WILL, ALINE, ICAL, EGFR1, BMPX #### [facility] [address] [place] [address] Monocytes/100 WBC (Bld) 4.4 % Normal [facility] Comment on above: Performed By: #### A WILL, CBCWD, ICAL, EGFR1, BMPX #### [facility] [address] [place] [address] Neutrophils/100 WBC (Bld) 88.4 % Normal [facility] Comment on above: Performed By: #### A WILL CBCTUAN, ICAL, EGFR1, BMPX #### [facility] [employer] [facility] [address] [place] [address] NRBC 0 /100 wbc Normal [facility] Comment on above: Performed By: #### A ALINE SOLIS, ICAL, EGFR1, BMPX #### [facility] [employer] [address] [address] PLATELET 183 thou/mm3 Normal 130-400 [facility] Comment on above: Performed By: #### A ALINE SOLIS, ICAL, EGFR1, BMPX #### [facility] [employer] [address] [address] Platelet mean volume (Bld) [Entitic vol] 10.5 fL Normal 9.4-12.4 [facility] Comment on above: Performed By: #### A WILL, CBCWD, ICAL, EGFR1, BMPX #### [facility] [employer] [facility] [address] [place] [address] RBC 2.34 mill/mm3 Low 4.20-5.40 [facility] Comment on above: Performed By: #### A WILL, CBCWD, ICAL, EGFR1, BMPX #### [facility] [address] [place] [address] RDW-SD 49.1 fL High 35.0-45.0 [facility] Comment on above: Performed By: #### A ALINE SOLIS, ICAL, EGFR1, BMPX #### [facility] [employer] [address] [place] [address] WBC 10.9 thou/mm3 High 4.8-10.8 [facility] Comment on above: Performed By: #### A ALINE SOLIS, ICAL, EGFR1, BMPX #### [address] [address] GFR, ESTIMATEDon 09-27-2023 GFR/1.73 sq M.predicted MDRD (S/P/Bld) [Vol rate/Area] mL/min/{1.73_m2} Normal >60 [facility] Comment on above: Result Comment: Seth [...] A ALINE SOLIS, ICAL, EGFR1, BMPX #### [employer] [address] [address] GLUCOSE POCon 09-27-2023 Glucose [Mass/Vol] 280 mg/dL High 70-108 [facility] Comment on above: Performed By: #### P OCGL #### [facility] [employer] [address] [place] [address] Glucose [Mass/Vol] 285 mg/dL High 70-108 [facility] Comment on above: Performed By: #### A ALINE SOLIS, ICAL, EGFR1, BMPX #### [facility] [address] [place] [address] Glucose [Mass/Vol] 328 mg/dL High 70-108 [facility] Comment on above: Performed By: #### A ALINE SOLIS, ICAL, EGFR1, BMPX #### [facility] [address] [place] [address] Glucose [Mass/Vol] 237 mg/dL High 70-108 [facility] Comment on above: Performed By: #### A ALINE SOLIS, ICAL, EGFR1, BMPX #### [employer] [facility] [address] [place] [address] ANION GAPon 09-26-2023 Anion gap [Moles/Vol] 14.0 mmol/L Normal 8.0-16.0 [facility] Comment on above: Result Comment: ANIO N GAP = Sodium -(Chloride + CO2) Performed By: #### A ALINE SOLIS, ICAL, EGFR1, BMPX #### [facility] [employer] [address] [place] [address] BASIC METABOL PANELon 2022 Calcium [Mass/Vol] 9.0 mg/dL Normal 8.5-10.5 [facility] Comment on above: Performed By: #### A ALINE SOLIS, ICAL, EGFR1, BMPX #### [employer] [facility] [address] [place] [address] Chloride [Moles/Vol] 100 mmol/L Normal 98-111 [facility] Comment on above: Performed By: #### A ALINE SOLIS, ICAL, EGFR1, BMPX #### [employer] [facility] [employer] [address] [place] [address] CO2 [Moles/Vol] 22 mmol/L Low 23-33 [facility] Comment on above: Performed By: #### A ALINE SOLIS, ICAL, EGFR1, BMPX #### [employer] [facility] [address] [place] [address] Creatinine [Mass/Vol] 1.0 mg/dL Normal 0.4-1.2 [facility] Comment on above: Performed By: #### A WILL, CBCWD, ICAL, EGFR1, BMPX #### [employer] [facility] [address] [place] [address] Glucose [Mass/Vol] 258 mg/dL High 70-108 [facility] Comment on above: Performed By: #### A BRIANNE SOLISWD, ICAL, EGFR1, BMPX #### [address] [address] POTASSIUM WITH REFLEX MG 4.1 meq/L Normal 3.5-5.2 [facility] Comment on above: Performed By: #### A ALINE SOLIS, ICAL, EGFR1, BMPX #### [address] [address] Sodium [Moles/Vol] 136 mmol/L Normal 135-145 [facility] Comment on above: Performed By: #### A WILL, ALINE, ICAL, EGFR1, BMPX #### [address] [address] Urea nitrogen [Mass/Vol] 28 mg/dL High 7-22 [facility] Comment on above: Performed By: #### A ALINE SOLIS, ICAL, EGFR1, BMPX #### [place] [address] CALCIUM (IONIZED) * WBon CALCIUM (IONIZED) * WB 1.21 mmol/L Normal 1.12-1.32 [facility] Comment on above: Performed By: #### A ALINE SOLIS, ICAL, EGFR1, BMPX #### [address] [address] CBC WITH DIFFERENTIALon ABS BASOPHILS 0.0 thou/mm3 Normal 0.0-0.1 [facility] Comment on above: Performed By: #### A WILL CBCTUAN, ICAL, EGFR1, BMPX #### [address] [address] ABS EOSINOPHILS 0.0 thou/mm3 Normal 0.0-0.4 [facility] Comment on above: Performed By: #### A WILL, CBCWD, ICAL, EGFR1, BMPX #### [address] [address] ABS IMMATURE GRANS (IG) 0.04 thou/mm3 Normal 0.00-0.07 [facility] Comment on above: Performed By: #### A WILL, CBCWD, ICAL, EGFR1, BMPX #### [facility] [address] [place] [address] ABS LYMPHOCYTES 0.6 thou/mm3 Low 1.0-4.8 [facility] Comment on above: Performed By: #### A WILL, CBCWD, ICAL, EGFR1, BMPX #### [facility] [address] [place] [address] ABS MONOCYTES 0.4 thou/mm3 Normal 0.4-1.3 [facility] Comment on above: Performed By: #### A WILL, CBCWD, ICAL, EGFR1, BMPX #### [address] [address] ABS NEUTROPHILS 11.4 thou/mm3 High 1.8-7.7 [facility] Comment on above: Performed By: #### A WILL, CBCWD, ICAL, EGFR1, BMPX #### [address] [address] Basophils/100 WBC (Bld) 0.1 % Normal [facility] Comment on above: Performed By: #### A WILL, CBCWD, ICAL, EGFR1, BMPX #### [address] [address] Eosinophils/100 WBC (Bld) 0.0 % Normal [facility] Comment on above: Performed By: #### A WILL CBCWD, ICAL, EGFR1, BMPX #### [address] [address] Erythrocyte distribution width (RBC) [Ratio] 13.2 % Normal 11.5-14.5 [facility] Comment on above: Performed By: #### A WILL, CBCWD, ICAL, EGFR1, BMPX #### [address] [address] Hematocrit (Bld) [Volume fraction] 27.8 % Low 37.0-47.0 [facility] Comment on above: Performed By: #### A NIRANJIT, CBCWD, ICAL, EGFR1, BMPX #### [address] [address] Hemoglobin (Bld) [Mass/Vol] 8.8 g/dL Low 12.0-16.0 [facility] Comment on above: Performed By: #### A ALINE SOLIS, ICAL, EGFR1, BMPX #### [facility] [address] [place] [address] IMMATURE GRANS (IG) 0.3 % Normal [facility] Comment on above: Performed By: #### A WILL CBCTUAN, ICAL, EGFR1, BMPX #### [facility] [address] [place] [address] Lymphocytes/100 WBC (Bld) 4.7 % Normal [facility] Comment on above: Performed By: #### A ALINE SOLIS, ICAL, EGFR1, BMPX #### [address] [address] MCH (RBC) [Entitic mass] 32.4 pg Normal 26.0-33.0 [facility] Comment on above: Performed By: #### A ALINE SOLIS, ICAL, EGFR1, BMPX #### [facility] [address] [place] [address] MCHC (RBC) [Mass/Vol] 31.7 g/dL Low 32.2-35.5 [facility] Comment on above: Performed By: #### A ALINE SOLIS, ICAL, EGFR1, BMPX #### [address] [address] MCV (RBC) [Entitic vol] 102.2 fL High 81.0-99.0 [facility] Comment on above: Performed By: #### A WILL CBCWD, ICAL, EGFR1, BMPX #### [address] [address] Monocytes/100 WBC (Bld) 3.1 % Normal [facility] Comment on above: Performed By: #### A WILL CBCWD, ICAL, EGFR1, BMPX #### [address] [address] Neutrophils/100 WBC (Bld) 91.8 % Normal [facility] Comment on above: Performed By: #### A ALINE SOLIS, ICAL, EGFR1, BMPX #### [facility] [employer] [facility] [employer] [address] [place] [address] NRBC 0 /100 wbc Normal [facility] Comment on above: Performed By: #### A ALINE SOLIS, ICAL, EGFR1, BMPX #### [facility] [employer] [place] [address] PLATELET 230 thou/mm3 Normal 130-400 [facility] Comment on above: Performed By: #### A ALINE SOLIS, ICAL, EGFR1, BMPX #### [facility] [employer] [address] [place] [address] Platelet mean volume (Bld) [Entitic vol] 10.4 fL Normal 9.4-12.4 [facility] Comment on above: Performed By: #### A ALINE SOLIS, ICAL, EGFR1, BMPX #### [facility] [place] [address] RBC 2.72 mill/mm3 Low 4.20-5.40 [facility] Comment on above: Performed By: #### A ALINE SOLIS, ICAL, EGFR1, BMPX #### [place] [address] RDW-SD 49.3 fL High 35.0-45.0 [facility] Comment on above: Performed By: #### A WILL CBCTUAN, ICAL, EGFR1, BMPX #### [employer] [address] [place] [address] WBC 12.4 thou/mm3 High 4.8-10.8 [facility] Comment on above: Performed By: #### A WILL CBCWD, ICAL, EGFR1, BMPX #### [facility] [employer] [address] [place] [address] GFR, ESTIMATEDon 09-26-2023 GFR/1.73 sq M.predicted MDRD (S/P/Bld) [Vol rate/Area] 57 mL/min/{1.73_m2} Abnormal >60 [facility] Comment on above: Result Comment: Seth [...] A ALINE SOLIS, ICAL, EGFR1, BMPX #### [facility] [employer] [address] [place] [address] GLUCOSE POCon 09-26-2023 Glucose [Mass/Vol] 287 mg/dL High 70-108 [facility] Comment on above: Performed By: #### A ALINE SOLIS, ICAL, EGFR1, BMPX #### [employer] [facility] [employer] [address] [place] [address] Glucose [Mass/Vol] 329 mg/dL High 70-108 [facility] Comment on above: Performed By: #### A ALINE SOLIS, ICAL, EGFR1, BMPX #### [employer] [facility] [employer] [address] [place] [address] ANION GAPon 09-25-2023 Anion gap [Moles/Vol] 14.0 mmol/L Normal 8.0-16.0 [facility] Comment on above: Result Comment: ANIO N GAP = Sodium -(Chloride + CO2) Performed By: #### A ALINE SOLIS, ICAL, EGFR1, BMPX #### [employer] [facility] [employer] [address] [place] [address] BASIC METABOL PANELon 2022 Calcium [Mass/Vol] 8.2 mg/dL Low 8.5-10.5 [facility] Comment on above: Performed By: #### A ALINE SOLIS, ICAL, EGFR1, BMPX #### [facility] [employer] [address] [place] [address] Chloride [Moles/Vol] 97 mmol/L Low 98-111 [facility] Comment on above: Performed By: #### A ALINE SOLIS, ICAL, EGFR1, BMPX #### [employer] [facility] [address] [place] [address] CO2 [Moles/Vol] 24 mmol/L Normal 23-33 [facility] Comment on above: Performed By: #### A ALINE SOLIS, ICAL, EGFR1, BMPX #### [facility] [address] [place] [address] Creatinine [Mass/Vol] 0.9 mg/dL Normal 0.4-1.2 [facility] Comment on above: Performed By: #### A ALINE SOLIS, ICAL, EGFR1, BMPX #### [address] [address] Glucose [Mass/Vol] 112 mg/dL High 70-108 [facility] Comment on above: Performed By: #### A ALINE SOLIS, ICAL, EGFR1, BMPX #### [address] [address] POTASSIUM WITH REFLEX MG 4.0 meq/L Normal 3.5-5.2 [facility] Comment on above: Result Comment: Low level specimen hemolysis is present as indicated by the interference level index on the Peggy analyzer. The reported K+ level may be falsely increased. If clinically warranted, recollection of the specimen is suggested. Performed By: #### A ALINE SOLIS, ICAL, EGFR1, BMPX #### [facility] [address] [address] Sodium [Moles/Vol] 135 mmol/L Normal 135-145 [facility] Comment on above: Performed By: #### A ALINE SOLIS, ICAL, EGFR1, BMPX #### [employer] [facility] [address] [place] [address] Urea nitrogen [Mass/Vol] 24 mg/dL High 7-22 [facility] Comment on above: Performed By: #### A WILL, CBCWD, ICAL, EGFR1, BMPX #### [address] [address] CBC WITH DIFFERENTIALon 11-0 4-2023 ABS BASOPHILS 0.0 thou/mm3 Normal 0.0-0.1 [facility] Comment on above: Performed By: #### C ISAMAR, REJCT #### [facility] [address] [place] [address] ABS EOSINOPHILS 0.0 thou/mm3 Normal 0.0-0.4 [facility] Comment on above: Performed By: #### C ISAMAR, REJCT #### [facility] [address] [place] [address] ABS IMMATURE GRANS (IG) 0.02 thou/mm3 Normal 0.00-0.07 [facility] Comment on above: Performed By: #### C ISAMAR, REJCT #### [address] [address] ABS LYMPHOCYTES 0.9 thou/mm3 Low 1.0-4.8 [facility] Comment on above: Performed By: #### C ISAMAR, REJCT #### [facility] [address] [place] [address] ABS MONOCYTES 0.5 thou/mm3 Normal 0.4-1.3 [facility] Comment on above: Performed By: #### C ISAMAR, REJCT #### [address] [address] ABS NEUTROPHILS 4.9 thou/mm3 Normal 1.8-7.7 [facility] Comment on above: Performed By: #### C ISAMAR, REJCT #### [facility] [address] [place] [address] Basophils/100 WBC (Bld) 0.2 % Normal [facility] Comment on above: Performed By: #### C ISAMAR, REJCT #### [facility] [address] [place] [address] Eosinophils/100 WBC (Bld) 0.0 % Normal [facility] Comment on above: Performed By: #### C ISAMAR, REJCT #### [address] [address] Erythrocyte distribution width (RBC) [Ratio] 13.3 % Normal 11.5-14.5 [facility] Comment on above: Performed By: #### C ISAMAR, REJCT #### [address] [address] Hematocrit (Bld) [Volume fraction] 29.0 % Low 37.0-47.0 [facility] Comment on above: Performed By: #### C ISAMAR, REJCT #### [address] [address] Hemoglobin (Bld) [Mass/Vol] 9.9 g/dL Low 12.0-16.0 [facility] Comment on above: Performed By: #### C ISAMAR, REJCT #### [address] [address] IMMATURE GRANS (IG) 0.3 % Normal [facility] Comment on above: Performed By: #### C ISAMAR, REJCT #### [address] [address] Lymphocytes/100 WBC (Bld) 13.8 % Normal [facility] Comment on above: Performed By: #### C ISAMAR, REJCT #### [address] [address] MCH (RBC) [Entitic mass] 32.8 pg Normal 26.0-33.0 [facility] Comment on above: Performed By: #### C ISAMAR, REJCT #### [address] [address] MCHC (RBC) [Mass/Vol] 34.1 g/dL Normal 32.2-35.5 [facility] Comment on above: Performed By: #### C ISAMAR, REJCT #### [address] [address] MCV (RBC) [Entitic vol] 96.0 fL Normal 81.0-99.0 [facility] Comment on above: Performed By: #### C ISAMAR, REJCT #### [address] [address] Monocytes/100 WBC (Bld) 8.7 % Normal [facility] Comment on above: Performed By: #### C ISAMAR, REJCT #### [facility] [address] [address] Neutrophils/100 WBC (Bld) 77.0 % Normal [facility] Comment on above: Performed By: #### C ISAMAR, REJCT #### [address] [address] NRBC 0 /100 wbc Normal [facility] Comment on above: Performed By: #### C ISAMAR, REJCT #### [facility] [employer] [address] [address] PLATELET 185 thou/mm3 Normal 130-400 [facility] Comment on above: Performed By: #### C ISAMAR, REJCT #### [address] [address] Platelet mean volume (Bld) [Entitic vol] 10.8 fL Normal 9.4-12.4 [facility] Comment on above: Performed By: #### C ISAMAR, REJCT #### [facility] [address] [address] RBC 3.02 mill/mm3 Low 4.20-5.40 [facility] Comment on above: Performed By: #### C ISAMAR, REJCT #### [address] [address] RDW-SD 46.2 fL High 35.0-45.0 [facility] Comment on above: Performed By: #### C ISAMAR, REJCT #### [employer] [address] [address] WBC 6.3 thou/mm3 Normal 4.8-10.8 [facility] Comment on above: Performed By: #### C ISAMAR, REJCT #### [employer] [address] [place] [address] EKG 12-LEADon 09-25-2023 EKG 12-LEAD [phone] Atrial fibrillation with rapid ventricular response with premature ventricular or aberrantly conducted complexes Septal infarct , age undetermined ST & T wave abnormality, consider inferior ischemia Abnormal ECG No previous ECGs available Confirmed by JOHNIE HACKETT ([id number]) on 09/25/2023 7:28:02 AM [email or web address]&Date=03-02-20 23&Time=[id number] &TestType=ECG&Site=3&Outp utType=PDF&Ext=PDF Normal [facility] FLUORO FOR SURGICAL PROCEDUR ESon 09-25-2023 FLUORO FOR SURGICAL PROCEDURES Radiology exam is complete. No Radiologist dictation. Please follow up with ordering provider. Normal [facility] GFR, ESTIMATEDon 09-25-2023 GFR/1.73 sq M.predicted MDRD (S/P/Bld) [Vol rate/Area] mL/min/{1.73_m2} Normal >60 [facility] Comment on above: Result Comment: Pedi [...] A NION, CBCWD, ICAL, EGFR1, BMPX #### [employer] [address] [place] [address] REJECTION NOTIFICATIONon REJECTION: REASON see below Normal [facility] Comment on above: Result Comment: Unab le to perform testing;Specimen was Hemolyzed Performed By: #### C BCWD, REJCT #### [employer] [address] [place] [address] REJECTION: TEST chems Normal [facility] Comment on above: Performed By: #### C BCWD, REJCT #### [employer] [address] [place] [address] Office Visiton 09-14-2023 Follow-up visit [id number] Briseyda Fair 1945 F Date Provider Department Center 09/14/2023 [facility] Family History Problem Relation Age of Onset Heart attack Father Stroke Father Family Status - Relation Status Age at Father Level of Service:[address] [place] OFFICE/OUTPATIENT [facility] 60-74 MINUTES Normal [facility] .eGFRon 07-12-2023 Estimated GFR 52 mL/min/1.73m? Low >=60 [facility] Comment on above: Result Comment: [facility] have implemented the eGFR calculation [...] years Performed By: #### E GFR #### [facility] [address] [place] [address] ABO/Rhon 07-12-2023 ABO/Rh SD 08/02/23 ABO/Rh: A POS Normal [facility] Comment on above: Performed By: #### A BORH #### [facility] (DEFAULT) [address] [place] [address] [facility] [address] [place] [address] ABSC Autoon 07-12-2023 ABSC Auto Negative Normal [facility] Comment on above: Performed By: #### A SA #### [address] [address] CBC w/ Diffon 07-12-2023 Erythrocyte distribution width (RBC) [Ratio] 12.8 % Normal 11.6-14.8 [facility] Comment on above: Performed By: #### C BC #### [address] [address] Hematocrit (Bld) [Volume fraction] 40.7 % Normal 36.0-46.0 [facility] Comment on above: Performed By: #### C BC #### [address] [address] Hemoglobin (Bld) [Mass/Vol] 14.1 g/dL Normal 12.0-16.0 [facility] Comment on above: Performed By: #### C BC #### [address] [address] MCH (RBC) [Entitic mass] 34.6 pg Normal 27.0-35.0 [facility] Comment on above: Performed By: #### C BC #### [address] [address] MCHC 34.6 % Normal 31.0-37.0 [facility] Comment on above: Performed By: #### C BC #### [address] [address] MCV (RBC) [Entitic vol] 100.0 fL Normal 80.0-100.0 [facility] Comment on above: Performed By: #### C BC #### [address] [address] Platelet 215 x10*3/mcL Normal 150-450 [facility] Comment on above: Performed By: #### C BC #### [address] [address] Platelet mean volume (Bld) [Entitic vol] 8.4 fL Normal 6.7-10.6 [facility] Comment on above: Performed By: #### C BC #### [address] [place] [address] RBC 4.07 x10*6/mcL Normal 3.80-5.20 [facility] Comment on above: Performed By: #### C BC #### [address] [place] [address] WBC 6.1 x10*3/mcL Normal 4.5-11.0 [facility] Comment on above: Performed By: #### C BC #### [address] [address] CMPon 07-12-2023 Albumin [Mass/Vol] 4.1 g/dL Normal 3.2-4.9 [facility] Comment on above: Performed By: #### C OMP #### [address] [address] Albumin/Globulin [Mass ratio] 1.3 {ratio} Normal 1.1-2.2 [facility] Comment on above: Performed By: #### C OMP #### [address] [place] [address] Alk Phos 37 IU/L Normal 32-91 [facility] Comment on above: Performed By: #### C OMP #### [address] [place] [address] ALT [Catalytic activity/Vol] 17 U/L Normal 14-54 [facility] Comment on above: Performed By: #### C OMP #### [address] [place] [address] Anion gap [Moles/Vol] 8 mmol/L Normal 7-17 [facility] Comment on above: Performed By: #### C OMP #### [address] [address] AST [Catalytic activity/Vol] 23 U/L Normal 15-41 [facility] Comment on above: Performed By: #### C OMP #### [address] [address] Bili Total 0.7 mg/dL Normal 0.3-1.2 [facility] Comment on above: Performed By: #### C OMP #### [address] [address] Calcium [Mass/Vol] 9.6 mg/dL Normal 8.5-10.3 [facility] Comment on above: Performed By: #### C OMP #### [address] [address] Chloride [Moles/Vol] 102 mmol/L Normal 98-110 [facility] Comment on above: Performed By: #### C OMP #### [address] [address] CO2 [Moles/Vol] 31 mmol/L Normal 22-32 [facility] Comment on above: Performed By: #### C OMP #### [address] [address] Creatinine [Mass/Vol] 1.09 mg/dL High 0.44-1.03 [facility] Comment on above: Performed By: #### C OMP #### [address] [place] [address] Glucose [Mass/Vol] 154 mg/dL High 70-99 [facility] Comment on above: Performed By: #### C OMP #### [address] [place] [address] Potassium [Moles/Vol] 3.4 mmol/L Normal 3.4-4.8 [facility] Comment on above: Performed By: #### C OMP #### [address] [place] [address] Protein [Mass/Vol] 7.3 g/dL Normal 6.5-8.1 [facility] Comment on above: Performed By: #### C OMP #### [address] [place] [address] Sodium [Moles/Vol] 138 mmol/L Normal 133-142 [facility] Comment on above: Performed By: #### C OMP #### [address] [place] [address] Urea nitrogen [Mass/Vol] 22 mg/dL Normal 8-26 [facility] Comment on above: Performed By: #### C OMP #### [address] [address] Urea nitrogen/Creatinine [Mass ratio] 20.2 mg/mg High 10.0-20.0 [facility] Comment on above: Performed By: #### C OMP #### [address] [address] Diff Autoon 07-12-2023 Baso Absolute 0.0 x10*3/mcL Normal 0.0-0.2 [facility] Comment on above: Performed By: #### . Automated Diff #### [address] [address] Basophils/100 WBC (Bld) 0.6 % Normal 0.0-1.5 [facility] Comment on above: Performed By: #### . Automated Diff #### [address] [address] Eos Absolute 0.1 x10*3/mcL Normal 0.0-0.4 [facility] Comment on above: Performed By: #### . Automated Diff #### [address] [address] Eosinophils/100 WBC (Bld) 2.3 % Normal 0.0-5.4 [facility] Comment on above: Performed By: #### . Automated Diff #### [address] [address] Lymph Absolute 1.3 x10*3/mcL Normal 1.0-4.8 [facility] Comment on above: Performed By: #### . Automated Diff #### [address] [address] Lymphocytes/100 WBC (Bld) 21.0 % Low 27.2-40.8 [facility] Comment on above: Performed By: #### . Automated Diff #### [address] [address] [place] Absolute 0.6 x10*3/mcL Normal 0.1-1.1 [facility] Comment on above: Performed By: #### . Automated Diff #### [address] [address] Monocytes/100 WBC (Bld) 9.5 % Normal 3.7-11.9 [facility] Comment on above: Performed By: #### . Automated Diff #### [address] [address] Neutro Absolute 4.0 x10*3/mcL Normal 1.8-7.7 [facility] Comment on above: Performed By: #### . Automated Diff #### [place] [id number] Neutro Auto 66.6 % Normal 47.2-70.8 [facility] Comment on above: Performed By: #### . Automated Diff #### [address] [address] HbA1c w/Rflx Fructosamineon 07-12-2023 Glucose [Mass/Vol] 148 mg/dL High 68-114 [facility] Comment on above: Result Comment: Math ematical Calc approx. The mean gluc equivalency of A1c Performed By: #### C [id number] #### [address] [address] Hgb A1c 6.8 % A1c High 4.0-5.6 [facility] Comment on above: Result Comment: Refe rence Range: 4.0 - 5.6 % Normal 5.7 - 6.4 % Pre-Diabetes > 6.5 % Diabetes Performed By: #### C [id number] #### [address] [address] T3, TOTAL (TRIIODOTHYRONINE) on 02-11-2023 T3, TOTAL 87 ng/dL Normal 71-180 [facility] Comment on above: Performed By: #### B MP, LIPID, TSH, ALT #### [facility] [address] [place], [place] [address] Dr. Bj Jason T3, TOTAL (TRIIODOTHYRONINE) on 02-10-2023 T3, TOTAL (TRIIODOTHYRONINE) 87 ng/dL 71-180 ng/dL [facility] Other T3, TOTAL (TRIIODOTHYRONINE) see note [employer] Other Alanine Aminotransferaseon 0 02-08-2023 ALT [Catalytic activity/Vol] 24 U/L Normal 14-59 [employer] [facility] Other Comment on above: Performed By: #### B MP, LIPID, TSH, ALT #### [facility] [address] [place] [address] [address] Bj Jason Alanine Aminotransferase see note [employer] Other CBC AUTO DIFFon 02-08-2023 BASO # 0.0 103/ul Normal 0.0-0.1 [facility] Comment on above: Performed By: #### B MP, LIPID, TSH, ALT #### [facility] [address] [place] [address] [address] Bj Jason Basophils/100 WBC (Bld) 0.3 % Normal 0.2-2.0 [facility] Comment on above: Performed By: #### B MP, LIPID, TSH, ALT #### [facility] [address] [place] [address] [address] Bj Jason EO # 0.1 103/ul Normal 0.0-0.7 [facility] Comment on above: Performed By: #### B MP, LIPID, TSH, ALT #### [facility] [address] [place] [address] [address] Bj Jason Eosinophils/100 WBC (Bld) 0.6 % Critically low 0.9-7.0 [facility] Comment on above: Performed By: #### B MP, LIPID, TSH, ALT #### [facility] [address] [place] [address] [address] Bj Jason Erythrocyte distribution width (RBC) [Ratio] 14.3 % Normal 11.0-15.0 [facility] Comment on above: Performed By: #### B MP, LIPID, TSH, ALT #### [facility] [address] [place] [address] Dr. Bj Jason Hematocrit (Bld) [Volume fraction] 43.3 % Normal 36.0-48.0 [facility] Comment on above: Performed By: #### B MP, LIPID, TSH, ALT #### [facility] [address] [place] [address] Dr. Bj Jason Hemoglobin (Bld) [Mass/Vol] 14.2 g/dL Normal 12.0-16.0 [facility] Comment on above: Performed By: #### B MP, LIPID, TSH, ALT #### [facility] [address] [place] [address] Dr. Bj Jason IG # 0.04 10e3/ul Critically high 0.00-0.03 [facility] Comment on above: Performed By: #### B MP, LIPID, TSH, ALT #### [facility] [address] [place] [address] Dr. Bj Jason IG % 0.3 % Normal 0.0-0.5 [facility] Comment on above: Performed By: #### B MP, LIPID, TSH, ALT #### [facility] [address] [place] [address] Dr. Bj Jason LYMPH # 1.7 103/ul Normal 1.2-3.8 [facility] Comment on above: Performed By: #### B MP, LIPID, TSH, ALT #### [facility] [address] [place] [address] Dr. Bj Jason Lymphocytes/100 WBC (Bld) 15.0 % Critically low 20.5-60.0 [facility] Comment on above: Performed By: #### B MP, LIPID, TSH, ALT #### [facility] [address] [place] [address] Dr. Bj Jason MANUAL DIFF REQ NO Normal [facility] Comment on above: Performed By: #### B MP, LIPID, TSH, ALT #### [facility] [address] [place] [address] Dr. Bj Jason MCH (RBC) [Entitic mass] 32.1 pg Normal 26.7-34.0 [facility] Comment on above: Performed By: #### B MP, LIPID, TSH, ALT #### [facility] [address] [place] [address] [address] Bj Jason MCHC (RBC) [Mass/Vol] 32.8 g/dL Normal 29.9-35.2 [facility] Comment on above: Performed By: #### B MP, LIPID, TSH, ALT #### [facility] [address] [place] [address] Dr. Bj Jason MCV (RBC) [Entitic vol] 98.0 fL Normal 81.0-99.0 [facility] Comment on above: Performed By: #### B MP, LIPID, TSH, ALT #### [facility] [address] [place] [address] Dr. Bj Jason MONO # 1.0 103/ul Critically high 0.3-0.8 [facility] Comment on above: Performed By: #### B MP, LIPID, TSH, ALT #### [facility] [address] [place] [address] Dr. Bj Jason Monocytes/100 WBC (Bld) 8.8 % Normal 1.7-12.0 [facility] Comment on above: Performed By: #### B MP, LIPID, TSH, ALT #### [facility] [address] [place] [address] Dr. Bj Jason NEUT # 8.6 103/ul Critically high 1.4-6.5 [facility] Comment on above: Performed By: #### B MP, LIPID, TSH, ALT #### [facility] [address] [place] [address] [address] Bj Jason Neutrophils/100 WBC (Bld) 75.0 % Normal 43.0-75.0 [facility] Comment on above: Performed By: #### B MP, LIPID, TSH, ALT #### [facility] [address] [place] [address] Dr. Bj Jason Platelet mean volume (Bld) [Entitic vol] 9.4 fL Critically low 9.5-13.5 [facility] Comment on above: Performed By: #### B MP, LIPID, TSH, ALT #### [facility] [address] [place] [address] [address] Bj Jason PLT 216 103/ul Normal 150-450 [facility] Comment on above: Performed By: #### B MP, LIPID, TSH, ALT #### [facility] [address] [place] [address] [address] Bj Jason RBC 4.42 106/ul Normal 4.20-5.40 [facility] Comment on above: Performed By: #### B MP, LIPID, TSH, ALT #### [facility] [address] [place] [address] Dr. Bj Jason WBC 11.5 103/ul Critically high 4.0-11.0 [facility] Comment on above: Performed By: #### B MP, LIPID, TSH, ALT #### [facility] [address] [place] [address] Dr. Bj Jason FREE T4on 02-08-2023 Free T4 [Mass/Vol] 0.88 ng/dL Normal 0.76-1.46 [facility] Comment on above: Performed By: #### F T4 #### [facility] [address] [place] [address] Dr. Bj Jason Free T4 (Free Thyroxine)on 0 02-08-2023 Free T4 (Free Thyroxine) [employer] Other GLYCOHEMOGLOBIN A1Con 2022 ADA RECOMMENDATION SEE BELOW Normal [facility] Comment on above: Result Comment: ADA RECOMMENDED LIMIT 4.0 - 6.0 ADA THERAPEUTIC TARGET < 7.0 ACTION SUGGESTED > 7.0 Performed By: #### B MP, LIPID, TSH, ALT #### [facility] [address] [place] [address] Dr. Bj Jason Glucose [Mass/Vol] 146 mg/dL Normal [facility] Comment on above: Performed By: #### B MP, LIPID, TSH, ALT #### [facility] [address] [place] [address] Dr. Bj Jason HbA1c (Bld) [Mass fraction] 6.7 % Critically high 4.5-6.2 [facility] Comment on above: Performed By: #### B MP, LIPID, TSH, ALT #### [facility] [address] [place] [address] [address] Bj Jason LIPID PROFILEon 02-08-2023 CHOL-HDL RATIO NORM SEE BELOW Normal [facility] Comment on above: Result Comment: 3.3 - 4.4 LOW RISK 4.4 - 7.1 AVERAGE RISK 7.1 - 11.0 MODERATE RISK >11.0 HIGH RISK Performed By: #### B MP, LIPID, TSH, ALT #### [facility] [address] [place] [address] Dr. Bj Jason Cholesterol [Mass/Vol] 155 mg/dL Normal <=200 [facility] Comment on above: Performed By: #### B MP, LIPID, TSH, ALT #### [facility] [address] [place] [address] Dr. Bj Jason Cholesterol in HDL [Mass/Vol] 49 mg/dL Normal 40-60 [facility] Comment on above: Performed By: #### B MP, LIPID, TSH, ALT #### [facility] [address] [place] [address] Dr. Bj Jason Cholesterol in LDL [Mass/Vol] 79.0 mg/dL Normal [facility] Comment on above: Performed By: #### B MP, LIPID, TSH, ALT #### [facility] [address] [place] [address] [address] Bj Jason Cholesterol.total/Chol esterol in HDL [Mass ratio] 3.2 {ratio} Normal [facility] Comment on above: Performed By: #### B MP, LIPID, TSH, ALT #### [facility] [address] [place] [address] Dr. Bj Jason HDL NORMAL > or = 60 mg/dl - LO W CARDIOVASCULAR RISK <40 mg/dl - HIGH CARDIOVASCULAR RISK Normal [facility] Comment on above: Performed By: #### B MP, LIPID, TSH, ALT #### [facility] [address] [place] [address] [address] Bj Jason LDL CALC NORMAL SEE BELOW Normal [facility] Comment on above: Result Comment: <100 mg/dl OPTIMAL 100 - 129 mg/dl NEAR OR ABOVE OPTIMAL 130 - 159 mg/dl BORDERLINE HIGH 160 - 189 mg/dl HIGH >190 mg/dl VERY HIGH Performed By: #### B MP, LIPID, TSH, ALT #### [facility] [address] [place] [address] [address] Bj Jason Triglyceride [Mass/Vol] 135 mg/dL Normal <=150 [facility] Comment on above: Performed By: #### B MP, LIPID, TSH, ALT #### [facility] [address] [place] [address] [address] Bj Jason VLDL CALC 27.0 mg/dL Normal [facility] Comment on above: Performed By: #### B MP, LIPID, TSH, ALT #### [facility] [address] [place] [address] Dr. Bj Jason MICROALBUMIN, RAND URon 03-2 mALB <1.3 Normal <=30.0 [facility] Comment on above: Performed By: #### M ALBR #### [facility] [address] [place] [address] Dr. Bj Jason PROF CHEM 8 (BAS METB)on Anion gap [Moles/Vol] 10.8 mmol/L Normal [facility] Comment on above: Performed By: #### B MP, LIPID, TSH, ALT #### [facility] [address] [place] [address] Dr. Bj Jason Calcium [Mass/Vol] 9.6 mg/dL Normal 8.5-10.1 [facility] Comment on above: Performed By: #### B MP, LIPID, TSH, ALT #### [facility] [address] [place] [address] Dr. Bj Jason Chloride [Moles/Vol] 101 mmol/L Normal 98-107 [facility] Comment on above: Performed By: #### B MP, LIPID, TSH, ALT #### [facility] [address] [place] [address] [address] Bj Jason CO2 [Moles/Vol] 31.8 mmol/L Normal 21.0-32.0 [facility] Comment on above: Performed By: #### B MP, LIPID, TSH, ALT #### [facility] [address] [place] [address] [address] Bj Jason Creatinine [Mass/Vol] 1.20 mg/dL Critically high 0.55-1.02 [facility] Comment on above: Performed By: #### B MP, LIPID, TSH, ALT #### [facility] [address] [place] [address] [address] Bj Jason EGFR-AF LAO 53 mL/min/1.73m2 Critically low >=60 [facility] Comment on above: Performed By: #### B MP, LIPID, TSH, ALT #### [facility] [address] [place] [address] Dr. Bj Jason EGFR-NON AF LAO 43 mL/min/1.73m2 Critically low >=60 [facility] Comment on above: Performed By: #### B MP, LIPID, TSH, ALT #### [facility] [address] [place] [address] [address] Bj Jason Glucose [Mass/Vol] 124 mg/dL Critically high 74-106 [facility] Comment on above: Performed By: #### B MP, LIPID, TSH, ALT #### [facility] [address] [place] [address] [address] Bj Jason Potassium [Moles/Vol] 3.6 mmol/L Normal 3.5-5.1 [facility] Comment on above: Performed By: #### B MP, LIPID, TSH, ALT #### [facility] [address] [place] [address] [address] Bj Jason Sodium [Moles/Vol] 140 mmol/L Normal 136-145 [facility] Comment on above: Performed By: #### B MP, LIPID, TSH, ALT #### [facility] [address] [place] [address] [address] Bj Jason Urea nitrogen [Mass/Vol] 27.0 mg/dL Critically high 7.0-18.0 [facility] Comment on above: Performed By: #### B MP, LIPID, TSH, ALT #### [facility] [address] [place] [address] [address] Bj Jason Urea nitrogen/Creatinine [Mass ratio] 22.5 mg/mg Normal [facility] Comment on above: Performed By: #### B MP, LIPID, TSH, ALT #### [facility] [address] [place] [id number] Bj Jason TSHon 02-08-2023 TSH 0.018 uIU/mL Critically low 0.358-3.74 0 [facility] Comment on above: Performed By: #### B MP, LIPID, TSH, ALT #### [facility] [address] [place] [address] [address] Bj Jason XR HIP RT 2 [...] JENELLE ACEVES Date: 2023-01-26 17:37 Normal [facility] XR HIP RT 2 3V W PELVIS [employer] Other MG MAMM SCREEN 3D LILLIAN CADon 01-08-2023 MG MAMM SCREEN 3D LILLIAN CAD Patient: FATUMA FAIR Exam Date: 01/08/2023 : 1945 Gender:F Ordering : DR HARSHA ANDREW D.O. Admission #: [id number] Family : DR JUN MARTÍNEZ . Order #: [id number] CLICK HERE TO VIEW EXAM RADIOLOGY REPORT [...] breast cancer at age 60. LOCATION: [facility] BREAST COMPOSITION: Heterogeneously dense,which may obscure small [...] M.D. on 01/12/2023 at 14:52 Normal [facility] CALCIUMon 12-11-2022 Calcium [Mass/Vol] 9.5 mg/dL Normal 8.5-10.1 [facility] Comment on above: Performed By: #### B MP, LIPID, TSH, ALT #### [facility] [address] [place] [address] [address] Bj Jason CREATININEon 12-11-2022 Creatinine [Mass/Vol] 1.06 mg/dL Critically high 0.55-1.02 [facility] Comment on above: Performed By: #### B MP, LIPID, TSH, ALT #### [facility] [address] [place] [address] [address] Bj Jason EGFR-AF LAO >60 Normal >=60 [facility] Comment on above: Performed By: #### B MP, LIPID, TSH, ALT #### [facility] [address] [place] [address] [address] Bj Jason EGFR-NON AF LAO 50 mL/min/1.73m2 Critically low >=60 [facility] Comment on above: Performed By: #### B MP, LIPID, TSH, ALT #### [facility] [address] [place] [address] [address] Bj Jason GLYCOHEMOGLOBIN A1Con 2021 ADA RECOMMENDATION SEE BELOW Normal [facility] Comment on above: Result Comment: ADA RECOMMENDED LIMIT 4.0 - 6.0 ADA THERAPEUTIC TARGET < 7.0 ACTION SUGGESTED > 7.0 Performed By: #### B MP, LIPID, TSH, ALT #### [facility] [address] [place] [address] Dr. Bj Jason Glucose [Mass/Vol] 160 mg/dL Normal [facility] Comment on above: Performed By: #### B MP, LIPID, TSH, ALT #### [facility] [address] [place] [address] Dr. Bj Jason HbA1c (Bld) [Mass fraction] 7.2 % Critically high 4.5-6.2 [facility] Comment on above: Performed By: #### B MP, LIPID, TSH, ALT #### [facility] [address] [place] [address] Dr. Bj Jason TSHon 09-30-2022 TSH 1.819 uIU/mL Normal 0.358-3.74 0 [facility] Comment on above: Performed By: #### T SH #### [facility] [address] [place] [address] Dr. Bj Jason CALCIUMon 08-07-2022 Calcium [Mass/Vol] 9.2 mg/dL Normal 8.5-10.1 [facility] Comment on above: Performed By: #### B MP, LIPID, TSH, ALT #### [facility] [address] [place] [address] Dr. Bj Jason CREATININEon 08-07-2022 Creatinine [Mass/Vol] 1.12 mg/dL Critically high 0.55-1.02 [facility] Comment on above: Performed By: #### B MP, LIPID, TSH, ALT #### [facility] [address] [place] [address] [address] Bj Jason EGFR-AF LAO 57 mL/min/1.73m2 Critically low >=60 [facility] Comment on above: Performed By: #### B MP, LIPID, TSH, ALT #### [facility] [address] [place] [address] [address] Bj Jason EGFR-NON AF LAO 47 mL/min/1.73m2 Critically low >=60 [facility] Comment on above: Performed By: #### B MP, LIPID, TSH, ALT #### [facility] [address] [place] [address] [address] Bj Jason GLYCOHEMOGLOBIN A1Con 2021 ADA RECOMMENDATION SEE BELOW Normal [facility] Comment on above: Result Comment: ADA RECOMMENDED LIMIT 4.0 - 6.0 ADA THERAPEUTIC TARGET < 7.0 ACTION SUGGESTED > 7.0 Performed By: #### A 1C #### [facility] [address] [place] [address] Dr. Bj Jason Glucose [Mass/Vol] 146 mg/dL Normal [facility] Comment on above: Performed By: #### A 1C #### [facility] [address] [place] [address] [address] Bj Jason HbA1c (Bld) [Mass fraction] 6.7 % Critically high 4.5-6.2 [facility] Comment on above: Performed By: #### A 1C #### [facility] [address] [place] [address] Dr. Bj Jason ECHOCARDIO M/2D COMPLETEon 0 05-12-2022 ECHOCARDIO M/2D COMPLETE Patient: FATUMA FAIR Exam Date: 05/12/2022 : 1945 Gender:F Ordering : DR HARSHA ANDREW D.O. Admission #: [id number] Family : Order #: [id number] CLICK HERE TO VIEW EXAM ECHOCARDIOGRAM REPORT [...] Area(A4C): 19.80 cm2 Left Atrium Systolic Volume(A2C): 06517 mm3 Left Atrium Systolic Volume(A4C): 18797 mm3 Mitral Valve MV E to A Ratio: 0.80 Deceleration [place]: 3840 mm/s2 Mitral Valve A-Wave Peak Velocity: 121.00 cm/s Mitral Valve E-Wave Peak Velocity: 91.80 cm/s Right Ventricle RV Internal Diastolic Dimension: 2.95 cm Aorta AO Root Diam: 3.00 cm Aortic Valve AoV Area (Peak Agueda): 2.18 cm2 Deceleration [place]: 1410 mm/s2 Pressure Half-Time: 736 ms Peak [...] Light M.D. on 05/13/2022 at 19:26 Normal [facility] XR TSPINE 2 VIEWSon 05-05-20 XR TSPINE [...] CHING MAHMOOD Date: 2022-05-05 13:09 Normal [facility] XR CHEST 2 Von 05-04-2022 XR CHEST [...] SAMARA FELTON Date: 2022-05-04 14:58 Normal [facility] XR LSPINE 2_3 VIEWSon 2021 XR LSPINE [...] KEERTHI RAMIREZ Date: 2022-05-04 21:52 Normal [facility] CBC AUTO DIFFon 04-29-2022 BASO # 0.1 103/ul Normal 0.0-0.1 [facility] Comment on above: Performed By: #### C BC #### [facility] [address] [place] [address] Dr. Bj Jason Basophils/100 WBC (Bld) 0.9 % Normal 0.2-2.0 [facility] Comment on above: Performed By: #### C BC #### [facility] [address] [place] [address] Dr. Bj Jason EO # 0.2 103/ul Normal 0.0-0.7 [facility] Comment on above: Performed By: #### C BC #### [facility] [address] [place] [address] Dr. Bj Jason Eosinophils/100 WBC (Bld) 2.4 % Normal 0.9-7.0 [facility] Comment on above: Performed By: #### C BC #### [facility] [address] [place] [address] Dr. Bj Jason Erythrocyte distribution width (RBC) [Ratio] 12.7 % Normal 11.0-15.0 [facility] Comment on above: Performed By: #### C BC #### [facility] [address] [place] [address] Dr. Bj Jsaon Hematocrit (Bld) [Volume fraction] 41.7 % Normal 36.0-48.0 [facility] Comment on above: Performed By: #### C BC #### [facility] [address] [place] [address] Dr. Bj Jason Hemoglobin (Bld) [Mass/Vol] 14.0 g/dL Normal 12.0-16.0 [facility] Comment on above: Performed By: #### C BC #### [facility] [address] [place] [address] Dr. Bj Jason IG # 0.02 10e3/ul Normal 0.00-0.03 [facility] Comment on above: Performed By: #### C BC #### [facility] [address] [place] [address] Dr. Bj Jason IG % 0.3 % Normal 0.0-0.5 [facility] Comment on above: Performed By: #### C BC #### [facility] [address] [place] [address] Dr. Bj Jason LYMPH # 1.6 103/ul Normal 1.2-3.8 [facility] Comment on above: Performed By: #### C BC #### [facility] [address] [place] [address] Dr. Bj Jason Lymphocytes/100 WBC (Bld) 20.6 % Normal 20.5-60.0 [facility] Comment on above: Performed By: #### C BC #### [facility] [address] [place] [address] Dr. Bj Jason MANUAL DIFF REQ NO Normal [facility] Comment on above: Performed By: #### C BC #### [facility] [address] [place] [address] Dr. Bj Jason MCH (RBC) [Entitic mass] 31.3 pg Normal 26.7-34.0 [facility] Comment on above: Performed By: #### C BC #### [facility] [address] [place] [address] Dr. Bj Jason MCHC (RBC) [Mass/Vol] 33.6 g/dL Normal 29.9-35.2 [facility] Comment on above: Performed By: #### C BC #### [facility] [address] [place] [address] [address] Bj Jason MCV (RBC) [Entitic vol] 93.3 fL Normal 81.0-99.0 [facility] Comment on above: Performed By: #### C BC #### [facility] [address] [place] [address] [address] Bj Jason MONO # 0.7 103/ul Normal 0.3-0.8 [facility] Comment on above: Performed By: #### C BC #### [facility] [address] [address] [address] Bj Jason Monocytes/100 WBC (Bld) 9.3 % Normal 1.7-12.0 [facility] Comment on above: Performed By: #### C BC #### [facility] [facility] [address] [place] [address] Dr. Bj Jason NEUT # 5.2 103/ul Normal 1.4-6.5 [facility] Comment on above: Performed By: #### C BC #### [facility] [address] [place] [address] Dr. Bj Jason Neutrophils/100 WBC (Bld) 66.5 % Normal 43.0-75.0 [facility] Comment on above: Performed By: #### C BC #### [facility] [address] [address] [address] Bj Jason Platelet mean volume (Bld) [Entitic vol] 10.9 fL Normal 9.5-13.5 [facility] Comment on above: Performed By: #### C BC #### [facility] [address] [address] [address] Bj Jason PLT 223 103/ul Normal 150-450 [facility] Comment on above: Performed By: #### C BC #### [facility] [address] [address] [address] Bj Jason RBC 4.47 106/ul Normal 4.20-5.40 [facility] Comment on above: Performed By: #### C BC #### [facility] [address] [place] [address] Dr. Bj Jason WBC 7.9 103/ul Normal 4.0-11.0 [facility] Comment on above: Performed By: #### C BC #### [facility] [address] [place] [address] Dr. Bj Jason PROF CHEM 8 (BAS METB)on Anion gap [Moles/Vol] 12.0 mmol/L Normal Th [facility] Comment on above: Performed By: #### B MP, LIPID, TSH, ALT #### [facility] [address] [place] [address] Dr. Bj Jason Calcium [Mass/Vol] 9.5 mg/dL Normal 8.5-10.1 [facility] Comment on above: Performed By: #### B MP, LIPID, TSH, ALT #### [facility] [address] [place] [address] Dr. Bj Jason Chloride [Moles/Vol] 101 mmol/L Normal 98-107 [facility] Comment on above: Performed By: #### B MP, LIPID, TSH, ALT #### [facility] [address] [place] [address] Dr. Bj Jason CO2 [Moles/Vol] 29.9 mmol/L Normal 21.0-32.0 [facility] Comment on above: Performed By: #### B MP, LIPID, TSH, ALT #### [facility] [address] [place] [address] Dr. Bj Jason Creatinine [Mass/Vol] 1.12 mg/dL Critically high 0.55-1.02 [facility] Comment on above: Performed By: #### B MP, LIPID, TSH, ALT #### [facility] [address] [place] [address] Dr. Bj Jason EGFR-AF LAO 57 mL/min/1.73m2 Critically low >=60 [facility] Comment on above: Performed By: #### B MP, LIPID, TSH, ALT #### [facility] [address] [place] [address] Dr. Bj Jason EGFR-NON AF LAO 47 mL/min/1.73m2 Critically low >=60 [facility] Comment on above: Performed By: #### B MP, LIPID, TSH, ALT #### [facility] [address] [address] [address] Bj Jason Glucose [Mass/Vol] 106 mg/dL Normal 74-106 [facility] Comment on above: Performed By: #### B MP, LIPID, TSH, ALT #### [facility] [address] [address] [address] Bj Jason Potassium [Moles/Vol] 3.9 mmol/L Normal 3.5-5.1 [facility] Comment on above: Performed By: #### B MP, LIPID, TSH, ALT #### [facility] [address] [address] [address] Bj Jason Sodium [Moles/Vol] 139 mmol/L Normal 136-145 [facility] Comment on above: Performed By: #### B MP, LIPID, TSH, ALT #### [facility] [address] [address] [address] Bj Jason Urea nitrogen [Mass/Vol] 25.0 mg/dL Critically high 7.0-18.0 [facility] Comment on above: Performed By: #### B MP, LIPID, TSH, ALT #### [facility] [address] [place] [address] Dr. Bj Jason Urea nitrogen/Creatinine [Mass ratio] 22.3 mg/mg Normal [facility] Comment on above: Performed By: #### B MP, LIPID, TSH, ALT #### [facility] [address] [address] [address] Bj Jason TSHon 04-29-2022 TSH 2.953 uIU/mL Normal 0.358-3.74 0 [facility] Comment on above: Performed By: #### B MP, LIPID, TSH, ALT #### [facility] [address] [place] [address] Dr. Bj Jason TSH RANGE SEE BELOW Normal [facility] Comment on above: Result Comment: <0.3 4 UIU/ml HYPERTHYROID 0.34-5.60 UIU/ml EUTHYROID >5.60 UIU/ml HYPOTHYROID Performed By: #### B MP, LIPID, TSH, ALT #### [facility] [address] [address] [address] Bj Jason GLYCOHEMOGLOBIN A1Con 2021 ADA RECOMMENDATION ADA THERAPEUTIC TARG ET 6.0 - 7.0 ACTION SUGGESTED > 7.0 Normal [facility] Comment on above: Performed By: #### B MP, LIPID, TSH, ALT #### [facility] [address] [address] [address] Bj Jason Glucose [Mass/Vol] 148 mg/dL Normal [facility] Comment on above: Performed By: #### B MP, LIPID, TSH, ALT #### [facility] [address] [address] [address] Bj Jason HbA1c (Bld) [Mass fraction] 6.8 % Critically high <=6.0 [facility] Comment on above: Performed By: #### B MP, LIPID, TSH, ALT #### [facility] [address] [address] [address] Bj Jason MICROALBUMIN, RAND URon 02-20 mALB <1.3 Normal <=30.0 [facility] Comment on above: Performed By: #### M ALBR #### [facility] [address] [address] [address] Bj Jason Vital Signs Date Time Vital Sign Value Performing Clinician Facility 07-06-2025 14:16 Body height 162.56 cm NMRKT DO Work Phone: [facility] 07-06-2025 14: Body mass index (BMI) [Ratio] 22.5 kg/m2 NMRKT DO Work Phone: [facility] 07-06-2025 14:16 Body weight 59.47 kg NMRKT DO Work Phone: [facility] 07-06-2025 14:160400 Diastolic blood pressure 65 mm[Hg] Harsha Ball DO Work Phone: [facility] 07-06-2025 14:16-0400 Heart rate 75 /min Harsha Ball DO Work Phone: [facility] 07-06-2025 14:16-0400 Respiratory rate 12 /min Harsha Ball DO Work Phone: [facility] 07-06-2025 14:16-0400 Systolic blood pressure 167 mm[Hg] Harsha Ball DO Work Phone: [facility] 05-04-2025 11:35-0400 Body height 162.56 cm Harsha Ball DO Work Phone: [facility] 05-04-2025 11:35-0400 Body mass index (BMI) [Ratio] 22.3 kg/m2 Harsha Ball DO Work Phone: [facility] 05-04-2025 11:35-0400 Body weight 59.02 kg Harsha Ball DO Work Phone: [facility] 05-04-2025 11:35-0400 Diastolic blood pressure 76 mm[Hg] Harsha Ball DO Work Phone: [facility] 05-04-2025 11:35-0400 Heart rate 73 /min Harsha Ball DO Work Phone: [facility] 05-04-2025 11:35-0400 Respiratory rate 12 /min Harsha Ball DO Work Phone: [facility] 05-04-2025 11:35-0400 SaO2% (BldA) [Mass fraction] 97 % Harsha Ball DO Work Phone: [facility] 05-04-2025 11:35-0400 Systolic blood pressure 165 mm[Hg] Harsha Ball DO Work Phone: [facility] 03-21-2025 12:54-0400 Body weight 59.2 kg Harsha Ball DO Work Phone: [facility] 03-21-2025 12:54-0400 Diastolic blood pressure 60 mm[Hg] Harsha Ball DO Work Phone: [facility] 03-21-2025 12:54-0400 Systolic blood pressure 128 mm[Hg] Harsha Ball DO Work Phone: [facility] 02-19-2025 13:42-0400 Body height 162.56 cm Harsha Ball DO Work Phone: [facility] 02-19-2025 13:42-0400 Body mass index (BMI) [Ratio] 24.6 kg/m2 Harsha Ball DO Work Phone: [facility] 02-19-2025 13:42-0400 Body weight 65.2 kg Harsha Ball DO Work Phone: [facility] 02-02-2025 11:26-0400 Diastolic blood pressure 79 mm[Hg] Harsha Ball DO Work Phone: [facility] 02-02-2025 11:26-0400 Heart rate 73 /min Harsha Ball DO Work Phone: [facility] 02-02-2025 11:26-0400 Respiratory rate 16 /min Harsha Ball DO Work Phone: [facility] 02-02-2025 11:26-0400 SaO2% (BldA) [Mass fraction] 95 % Harsha Ball DO Work Phone: [facility] 02-02-2025 11:26-0400 Systolic blood pressure 145 mm[Hg] Harsha Ball DO Work Phone: [facility] 02-02-2025 06:00-0400 Body weight 65.2 kg Harsha Ball DO Work Phone: [facility] 02-02-2025 03:58-0400 Body temperature 97.6 [degF] Harsha Ball DO Work Phone: [facility] 02-01-2025 13:00-0400 Inhaled oxygen flow rate 6 L/min Harsha Ball DO Work Phone: [facility] 01-29-2025 20:00-0400 Body temperature 98.2 [degF] Harsha Ball DO Work Phone: [facility] 01-29-2025 20:00-0400 Diastolic blood pressure 71 mm[Hg] Harsha Ball DO Work Phone: [facility] 01-29-2025 20:00-0400 Heart rate 69 /min Harsha Ball DO Work Phone: [facility] 01-29-2025 20:00-0400 Respiratory rate 16 /min Harsha Ball DO Work Phone: [facility] 01-29-2025 20:00-0400 SaO2% (BldA) [Mass fraction] 96 % Harsha Ball DO Work Phone: [facility] 01-29-2025 20:00-0400 Systolic blood pressure 168 mm[Hg] Harsha Ball DO Work Phone: [facility] 01-29-2025 01:04-0400 Body height 162.56 cm Harsha Ball DO Work Phone: [facility] 01-29-2025 01:04-0400 Body weight 62.7 kg Harsha Ball DO Work Phone: [facility] 01-03-2025 14:28-0500 Body height 162.56 cm [facility] 01-03-2025 14:28-0500 Body mass index (BMI) [Ratio] 25.2 kg/m2 [facility] 01-03-2025 14:28-0500 Body weight 66.76 kg [facility] 01-03-2025 14:28-0500 Diastolic blood pressure 72 mm[Hg] [facility] 01-03-2025 14:28-0500 Heart rate 74 /min [facility] 01-03-2025 14:28-0500 SaO2% (BldA) [Mass fraction] 99 % [facility] 01-03-2025 14:28-0500 Systolic blood pressure 174 mm[Hg] [facility] 10-16-2024 14:18-0500 Body height 162.56 cm [facility] 10-16-2024 14:18-0500 Body mass index (BMI) [Ratio] 26.3 kg/m2 [facility] 10-16-2024 14:18-0500 Body weight 69.51 kg [facility] 10-16-2024 14:18-0500 Diastolic blood pressure 62 mm[Hg] [facility] 10-16-2024 14:18-0500 Heart rate 62 /min [facility] 10-16-2024 14:18-0500 Respiratory rate 12 /min [facility] 10-16-2024 14:18-0500 Systolic blood pressure 132 mm[Hg] [facility] 07-18-2024 14:01-0400 Body height 162.56 cm [facility] 07-18-2024 14:01-0400 Body mass index (BMI) [Ratio] 26.9 kg/m2 [facility] 07-18-2024 14:01-0400 Body weight 71.21 kg [facility] 07-18-2024 14:01-0400 Diastolic blood pressure 68 mm[Hg] [facility] 07-18-2024 14:01-0400 Heart rate 73 /min [facility] 07-18-2024 14:01-0400 Respiratory rate 12 /min [facility] 07-18-2024 14:01-0400 Systolic blood pressure 112 mm[Hg] [facility] 05-16-2024 15:05-0400 Body temperature 98.2 [degF] Tutu Unger DPM Work Phone: [facility] 05-16-2024 15:05-0400 Diastolic blood pressure 60 mm[Hg] Tutu Hightowerbitz DPM Work Phone: [facility] 05-16-2024 15:05-0400 Heart rate 61 /min Tutu Unger DPM Work Phone: [facility] 05-16-2024 15:05-0400 Systolic blood pressure 133 mm[Hg] Tutu Unger DPM Work Phone: [facility] 04-13-2024 11:08-0400 Body height 162.56 cm [facility] 04-13-2024 11:08-0400 Body mass index (BMI) [Ratio] 27.6 kg/m2 [facility] 04-13-2024 11:08-0400 Body weight 73.08 kg [facility] 04-13-2024 11:08-0400 Diastolic blood pressure 76 mm[Hg] [facility] 04-13-2024 11:08-0400 Heart rate 72 /min [facility] 04-13-2024 11:08-0400 Respiratory rate 12 /min [facility] 04-13-2024 11:08-0400 Systolic blood pressure 118 mm[Hg] [facility] 02-14-2024 13:54-0400 Body height 162.56 cm [facility] 02-14-2024 13:54-0400 Body mass index (BMI) [Ratio] 27.9 kg/m2 [facility] 02-14-2024 13:54-0400 Body weight 73.93 kg [facility] 02-14-2024 13:54-0400 Diastolic blood pressure 82 mm[Hg] [facility] 02-14-2024 13:54-0400 Heart rate 65 /min [facility] 02-14-2024 13:54-0400 Respiratory rate 12 /min [facility] 02-14-2024 13:54-0400 Systolic blood pressure 132 mm[Hg] [facility] 11-25-2023 09:30-0500 Body height 162.56 cm Harsha Ball Other [facility] 11-25-2023 09:30-0500 Body mass index (BMI) [Ratio] 26.57 kg/m2 Harsha Ball Other [employer] Other 11-25-2023 09:30-0500 Body weight 70.22 kg Harsha Ball Other [employer] Other 11-25-2023 09:30-0500 Body weight 70.21 kg [facility] 11-25-2023 09:30-0500 Diastolic blood pressure 71 mm[Hg] Harsha Ball Other [facility] 11-25-2023 09:30-0500 Respiratory rate 12 /min Harsha Ball Other [facility] Other 11-25-2023 09:30-0500 Systolic blood pressure 129 mm[Hg] Harsha Ball Other [facility] 07-19-2023 10:00-0400 Body height 162.56 cm Harsha Ball Other [facility] Other 07-19-2023 10:00-0400 Body mass index (BMI) [Ratio] 27.36 kg/m2 Harsha Ball Other [facility] Other 07-19-2023 10:00-0400 Body weight 72.3 kg Harsha Ball Other [facility] Other 07-19-2023 10:00-0400 Diastolic blood pressure 82 mm[Hg] Harsha Ball Other [facility] Other 07-19-2023 10:00-0400 Respiratory rate 12 /min Harsha Ball Other [email or web address] Other 07-19-2023 10:00-0400 Systolic blood pressure 118 mm[Hg] Harsha Ball Other [employer] Other 05-11-2023 14:30-0400 Body height 162.56 cm Harsha Ball Other [employer] Other 05-11-2023 14:30-0400 Body mass index (BMI) [Ratio] 27.46 kg/m2 Harsha Ball Other [employer] Other 05-11-2023 14:30-0400 Body weight 72.58 kg Harsha Ball Other [employer] Other 05-11-2023 14:30-0400 Diastolic blood pressure 76 mm[Hg] Harsha Ball Other [employer] Other 05-11-2023 14:30-0400 Respiratory rate 12 /min Harsha Ball Other [employer] Other 05-11-2023 14:30-0400 Systolic blood pressure 118 mm[Hg] Harsha Ball Other [employer] Other 04-20-2023 11:00-0400 Body height 162.56 cm Harsha Ball Other [employer] Other 04-20-2023 11:00-0400 Body mass index (BMI) [Ratio] 27.36 kg/m2 Harsha Ball Other [employer] Other 04-20-2023 11:00-0400 Body weight 72.3 kg Harsha Ball Other [employer] Other 04-20-2023 11:00-0400 Diastolic blood pressure 70 mm[Hg] Harsha Ball Other [employer] Other 04-20-2023 11:00-0400 Respiratory rate 12 /min Harsha Ball Other [employer] Other 04-20-2023 11:00-0400 Systolic blood pressure 112 mm[Hg] Harsha Ball Other [employer] Other 02-08-2023 15:00-0400 Body height 162.56 cm Harsha Ball Other [employer] Other 02-08-2023 15:00-0400 Body mass index (BMI) [Ratio] 27.25 kg/m2 Harsha Ball Other [employer] Other 02-08-2023 15:00-0400 Body weight 72.03 kg Harsha Ball Other [employer] Other 02-08-2023 15:00-0400 Diastolic blood pressure 82 mm[Hg] Harsha Ball Other [employer] Other 02-08-2023 15:00-0400 Respiratory rate 12 /min Harsha Ball Other [employer] Other 02-08-2023 15:00-0400 Systolic blood pressure 118 mm[Hg] Harsha Ball Other [employer] Other 01-26-2023 13:15-0500 Body height 162.56 cm Harsha Ball Other [employer] Other 01-26-2023 13:15-0500 Diastolic blood pressure 70 mm[Hg] Harsha Ball Other [employer] Other 01-26-2023 13:15-0500 Respiratory rate 12 /min Harsha Ball Other [employer] Other 01-26-2023 13:15-0500 Systolic blood pressure 112 mm[Hg] Harsha Ball Other [employer] Other 12-16-2022 15:30-0500 Body height 162.56 cm Harsha Ball Other [employer] Other 12-16-2022 15:30-0500 Body mass index (BMI) [Ratio] 27.84 kg/m2 Harsha Ball Other [employer] Other 12-16-2022 15:30-0500 Body temperature 97.5 [degF] Harsha Andrew Other [employer] Other 12-16-2022 15:30-0500 Body weight 73.57 kg Harsha Andrew Other [employer] Other 12-16-2022 15:30-0500 SaO2% (BldA) [Mass fraction] 98 % Harsha Andrew Other [employer] Other Encounters Encounter Date Encounter Type Care Provider Facility Start: 07-06-2025 End: 07-06-2025 ambulatory Harsha Andrew DO Work Phone: [facility] Work Phone: Start: 07-06-2025 End: 07-06-2025 Patient encounter procedure Harsha Andrew DO -[facility] Work Phone: Start: 06-15-2025 End: 06-15-2025 ambulatory Harsha Andrew DO Work Phone: [facility] Work Phone: Start: 06-15-2025 End: 06-15-2025 Patient encounter procedure Harsha Andrew DO -[facility] Work Phone: Start: 05-07-2025 End: 05-07-2025 ambulatory Harsha Andrew Facility:[facility] Start: 05-07-2025 Non-patient / Non-visit Harsha colbert DO -[employer] Work Phone: Start: 05-04-2025 End: 05-04-2025 Patient encounter procedure Harsha Andrew DO -[facility] Work Phone: Start: 04-26-2025 Non-patient / Non-visit Harsha colbert DO -[facility] Work Phone: Start: 04-12-2025 Non-patient / Non-visit Harsha colbert DO -[facility] Work Phone: Start: 03-22-2025 Non-patient / Non-visit Harsha Moore l DO -[facility] Work Phone: Start: 03-21-2025 End: 03-21-2025 ambulatory Harsha Ball DO Work Phone: [facility] Work Phone: Start: 03-21-2025 End: 03-21-2025 Patient encounter procedure Harsha Ball DO Work Phone: [facility] Work Phone: Start: 02-19-2025 End: 02-19-2025 ambulatory Harsha Ball DO Work Phone: [facility] Work Phone: Start: 02-19-2025 End: 02-19-2025 Patient encounter procedure Harsha Ball DO Work Phone: [facility] Work Phone: Start: 02-08-2025 Non-patient / Non-visit Benjam in Ball DO Work Phone: [facility] Work Phone: Start: 01-30-2025 ambulatory HARSHA ANDREW [facility] Start: 01-29-2025 Non-patient / Non-visit Benjam in Ball DO Work Phone: [facility] Work Phone: Start: 01-29-2025 End: 02-02-2025 Evaluation and management of inpatient Harsha Ball DO Work Phone: [facility] Work Phone: Start: 01-28-2025 End: 01-28-2025 ambulatory Harsha Ball DO Work Phone: [facility] Work Phone: Start: 01-28-2025 End: 01-28-2025 Departed Referred Harsha Ball DO Work Phone: [facility] Start: 01-28-2025 Non-patient / Non-visit Mitch in Kamran DO Work Phone: [facility] Work Phone: Start: 01-22-2025 End: 01-24-2025 ambulatory RICHARD DAY [facility] Start: 01-22-2025 End: 01-24-2025 Subsequent hospital visit by physician Flores [address]er Dr Room 4 [facility] Comment on above: Leg length discrepan cy Start: 01-03-2025 End: 01-03-2025 ambulatory [facility] Work Phone: Start: 01-03-2025 End: 01-03-2025 Patient encounter procedure [facility] Work Phone: Start: 10-16-2024 End: 10-16-2024 Patient encounter procedure [facility] Work Phone: Start: 10-10-2024 Non-patient / Non-visit [facility] Work Phone: Start: 09-06-2024 End: 09-06-2024 ambulatory [facility] Work Phone: Start: 09-06-2024 End: 09-06-2024 Patient encounter procedure [facility] Work Phone: Start: 08-15-2024 End: 08-17-2024 ambulatory CHING COHEN [facility] Start: 08-11-2024 End: 08-11[facility] Start: 07-27-2024 Non-patient / Non-visit [facility] Work Phone: Start: 07-18-2024 End: 07-18-2024 ambulatory [facility] Work Phone: Start: 07-18-2024 End: 07-18-2024 Patient encounter procedure [facility] Work Phone: Start: 07-10-2024 End: 07-10-2024 ambulatory [facility] Work Phone: Start: 07-10-2024 End: 07-10-2024 Patient encounter procedure [facility] Work Phone: Start: 05-30-2024 End: 05-30-2024 ambulatory [facility] Work Phone: Start: 05-30-2024 End: 05-30-2024 Patient encounter procedure [facility] Work Phone: Start: 05-16-2024 End: 05-16-2024 ambulatory TUTU UNGER Not Available Start: 05-16-2024 End: 05-16-2024 Office outpatient new 45 minutes Tutu Unger DPM Work Phone: [facility] Comment on above: Pain of left foot (P rimary Dx); Pain of right foot; Callus; Pes planovalgus; Acquired leg length discrepancy; Tailor's bunion of left foot; Valgus deformity of both great toes; Hammer toes of both feet; Plantar fat pad atrophy; Other secondary osteoarthritis of both feet Start: 04-13-2024 End: 04-13-2024 ambulatory [facility] Work Phone: Start: 04-13-2024 End: 04-13-2024 Patient encounter procedure [facility] Work Phone: Start: 02-25-2024 Non-patient / Non-visit [facility] Work Phone: Start: 02-14-2024 End: 02-14-2024 ambulatory [facility] Work Phone: Start: 02-14-2024 End: 02-14-2024 Patient encounter procedure [facility] Work Phone: Start: 02-01-2024 End: 02-01-2024 ambulatory SANTIAGO SPIVEY [facility] Start: 01-31-2024 Non-patient / Non-visit [facility] Work Phone: Start: 12-21-2023 End: 12-21-2023 ambulatory Harsha Andrew Other [employer] Other Start: 12-21-2023 Telephone encounter Harsha GONZALES [facility] Start: 12-14-2023 End: 12-14-2023 ambulatory Harsha Andrew Other [employer] Other Start: 12-14-2023 Telephone encounter Harsha GONZALES [facility] Start: 11-25-2023 End: 11-25-2023 ambulatory Harsha Andrew Other [employer] Other Start: 11-25-2023 Transitional care maan mahan sr 14 day discharge Harsha Andrew [facility] Start: 11-25-2023 End: 11-25-2023 Patient encounter procedure [facility] Work Phone: Start: 11-23-2023 End: 11-23-2023 ambulatory KARLEE [facility] Start: 11-12-2023 End: 11-12-2023 ambulatory Harsha Andrew Other [employer] Other Start: 11-12-2023 Telephone encounter Harsha GONZALES [facility] Start: 11-11-2023 End: 11-11-2023 ambulatory Harsha Andrew Other [employer] Other Start: 11-11-2023 Nursing facility discharge management 30 minutes Harsha Andrew [facility] Start: 11-11-2023 Telephone encounter Harsha GONZALES [facility] Start: 11-09-2023 End: 11-09-2023 ambulatory Harsha Andrew Other [employer] Other Start: 11-09-2023 Telephone encounter Harsha Ball [facility] Start: 11-01-2023 End: 11-01-2023 ambulatory Harsha Ball Other [employer] Other Start: 11-01-2023 Telephone encounter Harsha Ball [facility] Start: 10-28-2023 End: 10-28-2023 ambulatory Harsha Ball Other [employer] Other Start: 10-28-2023 Sbsq nursing facil care/day new problem 25 min Harsha Ball [facility] Start: 10-28-2023 Telephone encounter Harsha Ball [facility] Start: 10-21-2023 ambulatory [facility] Start: 10-21-2023 End: 10-21-2023 ambulatory [facility] Start: 10-17-2023 End: 10-17-2023 ambulatory Harsha Ball Other [employer] Other Start: 10-17-2023 Telephone encounter Harsha Ball [facility] Start: 10-15-2023 End: 10-15-2023 ambulatory Harsha Ball Other [employer] Other Start: 10-15-2023 Sbsq nursing facil care/day new problem 25 min Harsha Ball [facility] Start: 10-09-2023 End: 10-09-2023 ambulatory Harsha Ball Other [employer] Other Start: 10-09-2023 Telephone encounter Harsha Ball [facility] Start: 10-08-2023 End: 10-08-2023 ambulatory Harsha Ball Other [employer] Other Start: 10-08-2023 Telephone encounter Harsha Ball [facility] Start: 10-07-2023 End: 10-07-2023 ambulatory Harsha Ball Other [employer] Other Start: 10-07-2023 Initial nursing faci lity care/day 45 minutes Harsha Andrew [facility] Start: 10-05-2023 End: 10-05-2023 ambulatory Harsha Andrew Other [employer] Other Start: 10-05-2023 Telephone encounter Harsha Andrew [facility] Start: 10-04-2023 End: 10-04-2023 ambulatory Harsha Andrew Other [employer] Other Start: 10-04-2023 Telephone encounter Harsha Andrew [facility] Start: 09-30-2023 End: 09-30-2023 ambulatory Harsha Andrew Other [employer] Other Start: 09-30-2023 Telephone encounter Harsha Andrew [facility] Start: 09-26-2023 End: 09-26-2023 ambulatory Harsha Andrew Other [employer] Other Start: 09-26-2023 Telephone encounter Harsha Andrew [facility] Start: 09-25-2023 End: 09-30-2023 [facility] Start: 09-22-2023 End: 09-22-2023 ambulatory Harsha Andrew Other [employer] Other Start: 09-22-2023 Telephone encounter Harsha Andrew [facility] Start: 09-14-2023 End: 09-14-2023 ambulatory [facility] Start: 08-30-2023 End: 08-30-2023 ambulatory Harsha Andrew Other [employer] Other Start: 08-30-2023 Office outpatient vi sit 15 minutes Harsha Andrew [facility] Start: 08-11-2023 End: 08-11-2023 ambulatory Harsha Kamran Other [employer] Other Start: 08-11-2023 Telephone encounter Harsha Andrew [facility] Start: 07-19-2023 End: 07-19-2023 ambulatory Harsha Andrew Other [employer] Other Start: 07-19-2023 Encounter for other preprocedural examination Harsha Ball [facility] Start: 07-19-2023 Office outpatient vi sit 25 minutes Harsha Ball [facility] Start: 07-16-2023 End: 07-16-2023 ambulatory Harsha Kamran Other [employer] Other Start: 07-16-2023 Telephone encounter Harsha Andrew [facility] Start: 07-12-2023 End: 07-13-2023 ambulatory Frank Cannon Facility:[facility] Start: 06-25-2023 End: 06-25-2023 ambulatory Harsha Andrew Other [employer] Other Start: 06-25-2023 Nursing evaluation o f patient and report Harsha Andrew [facility] Start: 06-21-2023 End: 06-21-2023 ambulatory Harsha Kamran Other [employer] Other Start: 06-21-2023 Nursing evaluation o f patient and report Harsha Andrew [facility] Start: 05-17-2023 End: 05-17-2023 ambulatory Harsha Andrew Other [employer] Other Start: 05-17-2023 Telephone encounter Harsha Andrew [facility] Start: 05-11-2023 End: 05-11-2023 ambulatory Harsha Ball Other [employer] Other Start: 05-11-2023 Office outpatient vi sit 25 minutes Harsha Ball [facility] Start: 04-20-2023 End: 04-20-2023 ambulatory Harsha Ball Other [employer] Other Start: 04-20-2023 Office outpatient vi sit 15 minutes Harsha Andrew [facility] Start: 04-14-2023 End: 04-15-[address] MD Facility:[facility] Start: 04-05-2023 End: 04-05-2023 ambulatory Harsha Andrew Other [employer] Other Start: 04-05-2023 Telephone encounter Harsha Andrew [facility] Start: 02-10-2023 End: 02-11-[address] HARSHA ANDREW Facility:[facility] Start: 02-10-2023 Nursing evaluation o f patient and report Harsha Andrew [facility] Start: 02-10-2023 Telephone encounter Harsha Andrew [facility] Start: 02-08-2023 End: 02-09-[address] HARSHA ANDREW [employer] Other Start: 02-08-2023 Patient encounter procedure Harsha Andrew [facility] Start: 02-08-2023 Telephone encounter Harsha Andrew [facility] Start: 02-01-2023 End: 02-01-2023 ambulatory Harsha Andrew Other [employer] Other Start: 02-01-2023 Telephone encounter Harsha Andrew [facility] Start: 01-26-2023 End: 01-27-[address] HARSHA ANDREW [employer] Other Start: 01-26-2023 Office outpatient vi sit 15 minutes Harsha Andrew [facility] Start: 01-26-2023 Telephone encounter Harsha GONZALES [facility] Start: 01-18-2023 End: 01-19-[address] HARSHA ANDREW Facility:[facility] Start: 01-11-2023 End: 01-11-2023 ambulatory Harsha Andrew Other [employer] Other Start: 01-11-2023 Telephone encounter Harsha Andrew [facility] Start: 01-08-2023 End: 01-09-[address] HARSHA ANDREW Facility:[facility] Start: 12-17-2022 End: 12-17-2022 ambulatory Harsha Andrew Other [employer] Other Start: 12-17-2022 Telephone encounter Harsha GONZALES [facility] Start: 12-16-2022 End: 12-16-2022 ambulatory Harsha Andrew Other [employer] Other Start: 12-16-2022 Office outpatient vi sit 25 minutes [facility] Start: 12-11-2022 End: 12-14-[address] JUN MARTÍNEZ . Facility:[facility] Start: 09-30-2022 End: 10-01-[address] HARSHA ANDREW Facility:[facility] Start: 09-15-2022 Gynecological examin ation normal Harsha Andrew Other [employer] Other Start: 08-07-2022 End: 08-07-[address] [...] 02-03-2022 Adult health examination Wadematthieu Andrew Other [employer] Other Procedures Date Procedure Procedure Detail Performing [...] Date Care Activity Detail Author Start: 02-02-2025 [facility] Start: 02-01-2025 Hospital admission [facility] Start: 02-01-2025 [facility] Start: 01-30-2025 End: 01-30-2025 Patient encounter procedure 01/30/2025 4:00 PM EDT Appointment [facility] [address] [place], [place] [id number] Richard Santos, PT MEDICARE [facility] Comment on above: MEDICARE Start: 01-29-2025 Arrangement of care procedure [facility] Start: 01-29-2025 Bacteria identified in Urine by Culture Urine Culture [facility] Start: 01-29-2025 Reposition Thoracic Vertebra, Percutaneous Approach Reposition Thoracic Vertebra, Percutaneous Approach [facility] Start: 01-29-2025 Supplement Thoracic Vertebra with Synthetic Substitute, Percutaneous Approach Supplement Thoracic Vertebra with Synthetic Substitute, Percutaneous Approach [facility] Start: 01-29-2025 Physical therapy procedure [facility] Start: 01-29-2025 Referral to occupati onal therapist [facility] Start: 01-29-2025 Urine culture [facility] Start: 01-29-2025 Consultation [facility] Start: 01-29-2025 Hospital admission [facility] Start: 01-29-2025 [facility] Start: 01-28-2025 Urine culture [facility] Start: 01-28-2025 Bacteria identified in Urine by Culture Urine Culture [facility] Start: 09-30-2024 GFR test (Diabetes, CKD 3-4, OR last GFR 15-59) GFR test (Diabetes, CKD 3-4, OR last GFR 15-59) [facility] [employer] Start: 07-23-2024 COVID-19 Vaccine ( season) [facility] Start: 10-18-2023 Annual Wellness Visi t (Medicare) Annual Wellness Visit (Medicare) [facility] [employer] Start: 08-02-2023 ambulatory Ambulatory Facility:[facility] Start: 07-27-2023 ambulatory Ambulatory Facility:[facility] Start: 07-03-2020 Pneumococcal 50+ yea rs Vaccine (2 of 2 - PCV) Pneumococcal 50+ years Vaccine (2 of 2 - PCV) [facility] Start: 01-22-2020 Respiratory Syncytia l Virus (RSV) or age 60 yrs+ (1 - 1-dose 75+ series) Respiratory Syncytial Virus (RSV) or age 60 yrs+ (1 - 1-dose 75+ series) [facility] [employer] Start: 01-22-2000 Screening for osteoporosis DEXA (modify frequency per FRAX score) [facility] Start: 01-22-1964 DTaP/Tdap/Td vaccine (1 - Tdap) DTaP/Tdap/Td vaccine (1 - Tdap) [facility] Start: 1963 Urine screening for protein Diabetic Alb to Cr ratio (uACR) test [facility] [employer] Start: 1957 Depression Screen Depression Screen [facility] Start: 1955 Lipid panel Lipids [employer] Comprehensive metabo lic 1999 panel - Serum or Plasma [facility] Comprehensive metabo lic 1999 panel - Serum or Plasma [facility] MG Breast - bilatera l Screening [facility] Patient referral [facility] Work Phone: Urine culture [facility] Immunizations Immunization Date Immunization Notes Care Provider Fa jeniffer 09-06-2024 influenza, high dose seasonal, preservative-free [facility] 08-26-2022 influenza, high dose seasonal, preservative-free Harsha Kamran Other [employer] [facility] Other 08-26-2022 influenza virus vaccine, split virus (incl. purified surface antigen) Harsha Kamran Other [employer] Other 08-26-2022 influenza virus vaccine, unspecified formulation [facility] 03-09-2022 zoster vaccine recombinant Harsha Andrew Other [facility] 10-21-2021 zoster vaccine recombinant Harsha Ball Other [facility] 08-26-2021 COVID-19 Vaccine Pfi zer - Documentation Purposes Only Harsha Andrew Other [facility] 01-09-2021 COVID-19 Vaccine Pfi zer - Documentation Purposes Only Harsha Andrew Other [facility] 12-19-2020 COVID-19 Vaccine Moderna - Documentation Purposes Only Harsha Kamran Other [facility] 12-19-2020 COVID-19 Vaccine Pfi zer - Documentation Purposes Only Harsha Andrew Other [facility] 09-17-2020 influenza virus vaccine, split virus (incl. purified surface antigen) Harsha Andrew Other [employer] Other 09-17-2020 influenza virus vaccine, unspecified formulation [facility] 10-03-2019 influenza virus vaccine, split virus (incl. purified surface antigen) Harsha Andrew Other [employer] Other 10-03-2019 influenza virus vaccine, unspecified formulation [facility] 07-03-2019 pneumococcal polysaccharide vaccine, 23 valent Harsha Andrew Other [facility] 09-28-2018 influenza virus vaccine, split virus (incl. purified surface antigen) Harsha Andrew Other [facility] [employer] Other 09-28-2018 influenza virus vaccine, unspecified formulation [facility] 08-17-2017 influenza virus vaccine, split virus (incl. purified surface antigen) Harsha Andrew Other [facility] Other 08-17-2017 influenza virus vaccine, unspecified formulation [facility] 09-04-2015 influenza virus vaccine, split virus (incl. purified surface antigen) Harsha Andrew Other [facility] Other 09-04-2015 influenza virus vaccine, unspecified formulation [facility] 09-04-2015 pneumococcal conjuga te vaccine, 13 valent Harsha Andrew Other [facility] 08-03-2012 tetanus and diphther ia toxoids, adsorbed, preservative free, for adult use (5 Lf of tetanus toxoid and 2 Lf of diphtheria toxoid) Harsha Andrew Other [facility] pneumococcal Conjuga te, unspecified formulation; Translations: [Need for prophylactic vaccination against Streptococcus pneumoniae (pneumococcus)] Harsha Kamran Other [facility] Other Payers Date Payer Category Payer Self-pay 2023 Private Health Insurance [employer] [place] [id number] 2023 Unknown 2010 Medicare 1959 Medicare [id number] [id number] 1959 Unknown [id number] 2.16.840.1.614119.19 1945 Unknown [id number] 2.16.840.1.910274.3.579.2 .593 1945 Unknown [id number] 2.16.840.1.556030.3.579.2 .593 1945 Unknown [id number] 2.16.840.1.513256.3.579.2 .593 1945 Unknown [id number] 2.16.840.1.355025.3.579.2 .593 1945 Unknown [id number] 2.16.840.1.635979.3.579.2 .593 1945 Unknown [id number] 2.16.840.1.797506.3.579.2 .593 1945 Unknown [id number] 2.16.840.1.961909.3.579.2 .593 1945 Unknown [id number] 2.16.840.1.031089.3.579.2 .593 1945 Unknown [id number] 2.16.840.1.821948.3.579.2 .593 1945 Unknown [id number] 2.16.840.1.665098.3.579.2 .593 1945 Unknown [id number] 2.16.840.1.789072.3.579.2 .593 1945 Unknown [id number] 2.16.840.1.923491.3.579.2 .593 1945 Unknown [id number] 2.16.840.1.196151.3.579.2 .593 194 Unknown [id number] 2.16.840.1.069416.3.579.2 .593 1945 Unknown [id number] 2.16.840.1.267755.3.579.2 .196 1945 Unknown [id number] 2.16.840.1.302696.3.579.2 .196 1945 Unknown [id number] 2.16.840.1.776413.3.579.2 .196 1945 Unknown [id number] 2.16.840.1.145390.3.579.2 .196 1945 Unknown [id number] 2.16.840.1.134562.3.579.2 .196 1945 Unknown [id number] 2.16.840.1.195170.3.579.2 .93 1945 Unknown [id number] 2.16.840.1.663137.3.579.2 .1259 1945 Unknown [id number] 2.16.840.1.513999.3.579.2 .173 1945 Unknown [id number] 2.16.840.1.739909.3.579.2 .173 1945 Unknown [id number] 2.16.840.1.792302.3.579.2 .173 1945 Unknown [id number] 2.16.840.1.782137.3.579.2 .173 1945 Unknown [id number] 2.16.840.1.243893.3.579.2 .173 Unknown [id number] 2.16.840.1.166280.3.579.2 .531 Unknown [id number] 2.16.840.1.156984.3.579.2 .531 Unknown [id number] 2.16.840.1.298031.3.579.2 .531 Social History Date Type Detail Facility Start: 09-25-2023 End: 05-16-2024 Sex Assigned At [facility] Repair Report [facility] Start: 1945 Sex Assigned At Female F [facility] Tobacco smoking stat us NHIS Unknown if ever smoked [facility] Work Phone: Start: 01-03-2025 End: 03-21-2025 Sex Female (finding) [facility] Start: 05-16-2024 End: 01-29-2025 Tobacco smoking status NHIS Never smoked tobacco [facility] Start: 05-16-2024 Tobacco use and exposure Smokeless tobacco non-user [facility] Start: 05-16-2024 Alcoholic beverage intake Ex-drinker (finding) [facility] Start: 09-25-2023 End: 05-16-2024 History of Social function [employer] Start: 1945 Sex assigned at Not on file N [facility] Start: 09-28-2023 Alcoholic beverage intake Current drinker of alcohol (finding) [employer] Read-Only, Retired: Physical Abuse Denies [employer] Start: 01-16-2013 Alcohol Comment social [facility] Start: 01-30-2025 SDOH Follow up SDOH Follow up [facility] Work Phone: Medical Equipment Procedure Code Equipment Code Equipment Origin al Text Equipment Identifier Dates Kyphoplasty Orthopaedic ceme nt, non-medicated [id number] FDA Start: 02-01-2025 Nail Im L280mm [id number] Fem Tib Ti Josy Lck Rg Gld [place]-Nail - [id number] Start: 09-25-2023 Screw Bne L30mm Dia5mm Ge Ti Int Capt Hex Lo Prof For Im - [id number] Start: 09-25-2023 Screw Bne L30mm Dia5mm Ge Ti Int Capt Hex Lo Prof For Im - [id number] Start: 09-25-2023 Screw Bne L47.5m m Dia5mm Ge Tib Ti Int Hex Lo Prof For Im - [id number] Start: 09-25-2023 Blood Sugar Diagnostic (Contour [...] status Patient is Pro gressing Toward Baseline [facility] Work Phone: 01-29-2025 Functional status Patient Not at Baseline [facility] Work Phone: Mental Status Date Assessment Result Facility 02-02-2025 Cognitive function Cognitive Sta tus Patient at Baseline [facility] Work Phone: 01-29-2025 Cognitive function Cognitive Sta tus Patient at Baseline [facility] Work Phone: Clinical Notes 10-01-2022 to 05-04-2025 [...] for breast cancer noneactive July 06 2:13pm [facility] Work Phone: 1(322) 356-144404-30-2025 Evaluation note* Diagnosis Onset Date Resolution Status [...] h hyperglycemia acute May 04, 2025 11:34am [facility] Work Phone: 1(478) 832-626903-14-2025 Progress note Author Donell Rosenbaum [facility] Note Date/Time February 02, 2025 7:1 5am [facility] [address] [place] [address] Neurosurgery Progress Note Signed Patient: Fatuma Fair MR#: [id number] : 1945 Acct:[id number] Age/Sex: 80 / F Adm Date: 5 Loc: Room: [address] [place] [address] Type: ADM IN Attending Dr: Alec Alvarez [...] intact and symmetrical Deltoid bicep tricep and operations intelligence 5/5 bilateral Upper extremity sensory normal to [...] % (Auto) 87.0, Lymph % (Auto) 4.5, [place] % (Auto) 7.3, Eos % (Auto) 1.0, Baso % (Auto) 0.2, Nucleat RBC Rel Count 0.2, Neut # (Auto) 9.9 H, Lymph # (Auto) 0.5 L, [place] # (Auto) 0.8, Eos # (Auto) 0.1, [...] Cloudy A, Urine pH 5.0, Ur Specific [place] 1.018, Urine Protein 20 H, Urine Glucose [...] diabetes mellitus with hyperglycemia: Qualifiers: Diabetes mellitus manager terminal insulin use: without manager terminal use Qualified Code(s): E11.65 - Type 2 diabetes mellitus with hyperglycemia (6) Paroxysmal atrial fibrillation: (7) Chronic anticoagulation: Plan In summary as patient is a 80-year-old female postop day 1 from percutaneous [id number] secondary having worsening thoracic back pain as [...] <Electronically signed by Donell Rosenbaum DO> 02/02/25714 [facility] Work Phone: 1(872) 597-448003-14-2025 [place] [address] Neurosurgery Progress Note Signed Patient: Fatuma Fair MR#: [id number] : 1945 Acct:[id number] Age/Sex: 80 / F Adm Date: 5 Loc: Room: 3H2600-4 Type: ADM IN Attending Dr: Alec Alvarez [...] intact and symmetrical Deltoid bicep tricep and operations intelligence 5/5 bilateral Upper extremity sensory normal to [...] % (Auto) 87.0, Lymph % (Auto) 4.5, [place] % (Auto) 7.3, Eos % (Auto) 1.0, Baso % (Auto) 0.2, Nucleat RBC Rel Count 0.2, Neut # (Auto)9.9 H, Lymph # (Auto) 0.5 L, [place] # (Auto) 0.8, Eos # (Auto) 0.1, [...] Cloudy A, Urine pH 5.0, Ur Specific [place] 1.018, Urine Protein 20 H, Urine Glucose [...] diabetes mellitus with hyperglycemia: Qualifiers: Diabetes mellitus manager terminal insulin use: without chcf use Qualified Code(s): E11.65 - Type 2 diabetes mellitus with hyperglycemia (6) Paroxysmal atrial fibrillation: (7) Chronic anticoagulation: Plan In summary as patient is a 80-year-old female postop day 1 from percutaneous Q23anwxoovyliw secondary having worsening thoracic back pain as [...] Rosenbaum DO 02/02/25713 Signed By: 02/02/25 0715 [facility]03-13-2025 Progress note Author Alexandra Cheney [facility] Note Date/Time February 01, 2025 5:1 4pm [facility] [address] [place] [address] Hospitalist Progress Note Signed Patient: Fatuma Fair MR#: [id number] : 1945 Acct:[id number] Age/Sex: 80 / F Adm Date: 5 Loc: 4N Room: 7V9321-3 Type: ADM IN Attending Dr: Alec Alvarez [...] canal narrowing -therapy evaluations- plan dc to [facility] -symptom management, IV Hydromorphone and Tramadol. Will [...] <Electronically signed by Alec Alvarez MD> 02/01/[address] [facility] Work Phone: 1(609) 944-831003-13-2025 [place] [address] Hospitalist Progress Note Signed Patient: Fatuma Fair MR#: [id number] : 1945 Acct:[id number] Age/Sex: 80 / F Adm Date: 5 Loc: Room: [address] [place] [address] Type: ADM IN Attending Dr: Alec Alvarez [...] canal narrowing -therapy evaluations- plan dc to [facility] -symptom management, IV Hydromorphone and Tramadol. Will [...] 1136 Signed By: 02/01/25 1522 02/01/25 1714 [facility]03-12-2025 Progress note Author Alexandra Cheney [facility] Note Date/Time January 31, 2025 5:2 1pm [facility] [address] [place] [address] Hospitalist Progress Note Signed with Scooter Patient: Fatuma Fair MR#: [id number] : 1945 Acct:[id number] Age/Sex: 80 / F Adm Date: 5 Loc: 4N Room: [address] [place] [address] Type: ADM IN Attending Dr: Alec Alvarez [...] Tablet PO 01/29/26 06:29 25 mcg DAILY@0630 KAHTERINE Administration Lisinopril 20 mg 01/29/25 09:00 01/31/25 [...] canal narrowing -therapy evaluations- plan dc to [facility]- they can accept -symptom management, utilizing IV Hydromorphone and Tramadol -01/31 patient has now decided she would like kyphoplasty, planned 02/01 -pending EKG/ echo/ CXR for preop clearance. RCRI=0. Hx Lexiscan 10/2021 normal. Echo 04/2022 EF 55-60% mild TR/MR/WV UTI, RULED OUT -culture with bacterial skin [...] <Electronically signed by Alec Alvarez MD> 01/31/[address] [facility] [facility] Work Phone: 1(468) 929-911303-12-2025 [place] [address] Hospitalist Progress Note Signed with Addenda Patient: Fatuma Fair MR#: [id number] : 1945 Acct:[id number] Age/Sex: 80 / F Adm Date: 5 Loc: 4N Room: 9W9741-6 Type: ADM IN Attending Dr: Alec Alvarez MD Copies to: ~ ADDENDUM1 EKG SR Echo EF 65-70%, LVH, mild AR CXR- nonacute Pt medically/ cardiac cleared for surgery - see additional notations below Addendum Documented By: FROYLAN CanaleshouseJoannaClark 01/31/251720 Addendum Signed By: 01/31/251720 Date of [...] canal narrowing -therapy evaluations- plan dc to [facility]- they can accept -symptom management, utilizing IV Hydromorphone and Tramadol -01/31 patient has now decided she would like kyphoplasty, planned 02/01 -pending EKG/ echo/ CXR for preop clearance. RCRI=0. Hx Lexiscan 10/2021 normal. 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 [...] signed by Donell Rosenbaum DO> 01/31/[address] 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 [...] Rosenbaum DO 01/31/251249 Signed By: 01/31/25 1252 [facility]03-12-2025 Progress note Author Donell Rosenbaum [facility] Note Date/Time January 31, 2025 8:0 4am [facility] [address] [place] [address] Neurosurgery Progress Note Signed Patient: Fatuma Fair MR#: [id number] : 1945 Acct:[id number] Age/Sex: 80 / F Adm Date: Loc: 4N Room: 3O5486-1 Type: ADM IN Attending Dr: Alec Alvarez [...] intact and symmetrical Deltoid bicep tricep and operations intelligence 5/5 bilateral Upper extremity sensory normal to [...] diabetes mellitus with hyperglycemia: Qualifiers: Diabetes mellitus chcf insulin use: without manager terminal use Qualified Code(s): E11.65 - Type 2 [...] 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 [...] signed by Donell Rosenbaum DO> 01/31/[address] 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 [...] Rosenbaum DO 01/31/25800 Signed By: 01/31/25 0804 [facility]03-11-2025 Progress note Author Alexandra Cheney [facility] Note Date/Time January 30, 2025 9:1 2pm [facility] EN[facility] [address] [place] [address] Hospitalist Progress Note Signed Patient: Fatuma Fair MR#: [id number] : 1945 Acct:[id number] Age/Sex: 80 / F Adm Date: 5 Loc: Room: [address] [place] [address] Type: ADM IN Attending Dr: Alec Alvarez [...] encounter. I reviewed her history and performed galelgos elements of exam and formulated the plan of care and confirmed the nurse practitioners note above. Plan of care reflects my direct input Documented By: Alexandra Cheney APRN 01/20 12/16 1135 Signed By: <Electronically signed by FROYLAN Cheney> 01/30/25 1524 <Electronically signed by Alec Alvarez MD> 01/30/252111 [facility] Work Phone: 1(589) 960-487703-11-2025 [place] [id number] Hospitalist Progress Note Signed Patient: Fatuma Fair MR#: [id number] : 1945 Acct:[id number] Age/Sex: 80 / F Adm Date: 5 Loc: 4N Room: [address] [place] [address] Type: ADM IN Attending Dr: Alec Alvarez [...] canal narrowing -therapy evaluations- plan dc to [facility]- they can accept -symptom management, utilizing IV [...] 12/16 1135 Signed By: 01/30/25 1524 01/30/25 [facility] [address] [facility]03-11-2025 Progress note Author Donell Rosenbaum [facility] Note Date/Time January 30, 2025 2:1 8pm [facility] EN[facility] [address] [place] [address] Neurosurgery Progress Note Signed Patient: Fatuma Fair MR#: [id number] : 1945 Acct:[id number] Age/Sex: 80 / F Adm Date: 5 Loc: Room: [address] [place] [address] Type: ADM IN Attending Dr: Alec Alvarez [...] intact and symmetrical Deltoid bicep tricep and operations intelligence 5/5 bilateral Upper extremity sensory normal to [...] diabetes mellitus with hyperglycemia: Qualifiers: Diabetes mellitus chcf insulin use: without manager terminal use Qualified Code(s): E11.65 - Type 2 [...] stable for discharge which would be the [facility]. All questions were answered to the satisfaction of the patient sheis in agreement the above plan. Documented By: Donell Rosenbaum DO 01/30/25 1415 Signed By: <Electronically signed by Donell Rosenbaum DO> 01/30/25 1418 [facility] Work Phone: 1(430) 822-674503-11-2025 [place] [address] Neurosurgery Progress Note Signed Patient: Fatuma Fair MR#: [id number] : 1945 Acct:[id number] Age/Sex: 80 / F Adm Date: 5 Loc: 4N Room: [address] [place] [address] Type: ADM IN Attending Dr: Alec Alvarez [...] intact and symmetrical Deltoid bicep tricep and operations intelligence 5/5 bilateral Upper extremity sensory normal to [...] diabetes mellitus with hyperglycemia: Qualifiers: Diabetes mellitus manager terminal insulin use: without chcf use Qualified Code(s): E11.65 - Type 2 [...] is stable for discharge which wouldbe the [facility]. All questions were answered to the satisfaction of the patient sheis in agreement the above plan. Documented By: Donell Rosenbaum DO 01/30/25 7303 Signed By: 01/30/25 1418 [facility]03-10-2025 Progress note Author Alexandra Cheney [facility] Note Date/Time January 29, 2025 4:5 7pm [facility] EN[facility] [address] [place], [place] [id number] Hospitalist Progress Note Signed Patient: Fatuma Fair MR#: [id number] : 1945 Acct:[id number] Age/Sex: 80 / F Adm Date: 5 Loc: 4N Room: [address] [place] [address] Type: ADM IN Attending Dr: Alec Alvarez [...] <Electronically signed by Alec Alvarez MD> 01/29/[address] [facility] Work Phone: 1(624) 687-428303-10-2025 [place] [address] Hospitalist Progress Note Signed Patient: Fatuma Fair MR#: [id number] : 1945 Acct:[id number] Age/Sex: 80 / F Adm Date: 5 Loc: Room: [address] [place] [address] Type: ADM IN Attending Dr: Alec Alvarez [...] 01/29/25 06:42 Rocephin IV 100 mls/hr Q24H KATEHRINE Administration Insulin Aspart 0 units 01/29/25 08:00 [...] 1255 Signed By: 01/29/25 1605 01/29/25 1657 [facility]03-10-2025 Consult note Author Donell Rosenbaum [facility] Note Date/Time January 29, 2025 7:5 3am [facility] [address] [place] [address] Neurosurgery Consult Note Signed Patient: Fatuma Fair MR#: [id number] : 1945 Acct:[id number] Age/Sex: 80 / F Adm Date: 5 Loc: Room: [address] [place] [address] Type: ADM IN Attending Dr: Sandy Salcido MD Copies to: DO Donell Montague DO Ruta Semaskiene, MD~ HPI History of Present Illness Consult Date: 01/29/2025 Requesting Provider: CC: Sandy Salcido MD Reason for Consult: Reported T12 burst fracture History of Present Illness: This patient is a 80-year-old left-handed female that lives at home with her who presented to [facility] from [facility] with reports of having a T12 burst [...] burst fracture and was subsequently transferred from [facility] to [facility] for further evaluation. [facility] Medical History GERD (gastroesophageal reflux disease) COVID [...] dulaglutide 1.5 mg/0.5 mL subcutaneous pen injector ([employer]) 1.5 mg (0.5 mL) subcut QWEEK 28 [...] intact and symmetrical Deltoid bicep tricep and operations intelligence 5/5 bilateral Upper extremity sensory normal to [...] % (Auto) 85.9, Lymph % (Auto) 6.5, [place] % (Auto) 7.1, Eos % (Auto) 0.3, Baso % (Auto) 0.2, Nucleat RBC Rel Count 0.0, Neut # (Auto) 9.5 H, Lymph # (Auto) 0.7 L, [place] # (Auto) 0.8, Eos # (Auto) 0.0, [...] a 80-year-old left-handed female who presents to [facility] from [facility] with reported T12 burst fracture. At this time the patient did have a CT that was done at [facility] which per the ER report has read [...] By: <Electronically signed by Donell Rosenbaum DO> 01/29/254 [facility] Work Phone: 1(368) 237-176803-10-2025 History and physical note Author Sandy Salcido [facility] Note Date/Time January 29, 2025 7:4 4am [facility] EN[facility] [address] [place] [address] Hospitalist H&P Signed Patient: Fatuma Fair MR#: [id number] : 1945 Acct:[id number] Age/Sex: 80 / F Adm Date: 5 Loc: Room: [address] [place] [address] Type: ADM IN Attending Dr: Sandy Salcido [...] Denies loss of vision and Reports vertigo [facility] Medical History GERD (gastroesophageal reflux disease) COVID [...] dulaglutide 1.5 mg/0.5 mL subcutaneous pen injector ([employer] Name) 1.5 mg (0.5 mL) subcut QWEEK 28 [...] <Electronically signed by Tiffany Guy> 01/29/[address] [facility] Work Phone: 1(958) 301-401803-10-2025 [place] [address] Neurosurgery Consult Note Signed Patient: Fatuma Fair MR#: [id number] : 1945 Acct:[id number] Age/Sex: 80 / F Adm Date: 5 Loc: N Room: [id number] Type: ADM IN Attending Dr: Sandy Salcido MD Copies to: DO Donell Montague, DO Sandy Salcido MD~ HPI History of Present Illness Consult Date: 01/29/2025 Requesting Provider: CC: Sandy Salcido MD Reason for Consult: Reported T12 burst fracture History of Present Illness: This patient is a 80-year-old left-handed female that lives at home with her who presented to [facility] from [facility] with reports of having a T12 burst [...] burst fracture and was subsequently transferred from [facility] to [facility] for further evaluation. [facility] Medical History GERD (gastroesophageal reflux disease) COVID [...] intact and symmetrical Deltoid bicep tricep and operations intelligence 5/5 bilateral Upper extremity sensory normal to [...] % (Auto) 85.9, Lymph % (Auto) 6.5, [place] % (Auto) 7.1, Eos % (Auto) 0.3, Baso % (Auto) 0.2, Nucleat RBC Rel Count 0.0, Neut # (Auto) 9.5 H, Lymph # (Auto) 0.7 L, [place] # (Auto) 0.8, Eos # (Auto) 0.0, [...] a 80-year-old left-handed female who presents to [facility] from [facility] with reported T12 burst fracture. At this time the patient did have a CT that was done at [facility] which per the ER report has read [...] DO 01/29/25 075 Signed By: 01/29/25 0753 [facility]03-10-2025 [place] [address] Hospitalist H&P Signed Patient: Fatuma Fair MR#: [id number] : 1945 Acct:[id number] Age/Sex: 80 / F Adm Date: 5 Loc: Room: [address] [place] [address] Type: ADM IN Attending Dr: Sandy Salcido [...] Denies loss of vision and Reports vertigo [facility] Medical History GERD (gastroesophageal reflux disease) COVID [...] 0236 Signed By: 01/29/25 0744 01/29/25 0558 [facility]02-12-2025 Evaluation note* Diagnosis Onset Date Resolution Status Admit Date Essential hypertension acute Fe [facility] 2024 1:54pm GERD (gastroesophageal reflu x [...] 29, 2025 12:42am Chronic anticoagulation acute [facility] 2024 12:42am Essential hypertension acute [facility] 2024 12:42am Fall acute January 29 12:42am Paroxysmal atrial fibrillation acute January 29, 2025 12:42am Type 2 diabetes mellitus wit h hyperglycemia acute January 29, 2025 12:42am UTI (urinary tract infection) acute January 29, 2025 12:42am [facility] Work Phone: 1(473) 742-490702-12-2025 Evaluation note* Diagnosis Onset Date Resolution Status [...] January 29, 2025 12:42am Chronic anticoagulation acute [facility] 2024 12:42am Essential hypertension acute [facility] 2024 12:42am Paroxysmal atrial fibrillation acute January 29, 2025 12:42am Type 2 diabetes mellitus wit h hyperglycemia acute January 29, 2025 12:42am Fall resolved January 29 12:42am UTI (urinary tract infection) delete d January 29, 2025 12:42am [facility] Work Phone: 1(281) 538-609202-12-2025 Evaluation note* Diagnosis Onset Date Resolution Status [...] January 29, 2025 12:42am Chronic anticoagulation acute [facility] 2024 12:42am Essential hypertension acute [facility] 2024 12:42am Paroxysmal atrial fibrillation acute January 29, 2025 12:42am Type 2 diabetes mellitus wit h hyperglycemia acute January 29, 2025 12:42am Fall resolved January 29 12:42am UTI (urinary tract infection) delete d January 29, 2025 12:42am Burst fracture of T12 vertebra acute February 19, 2025 1:38pm [facility] Work Phone: 1(902) 244-789611-25-2024 Evaluation note* Diagnosis Onset Date Resolution Status [...] hyperglycemia acute January 03 2 025 1:54pm [facility] Work Phone: 1([phone]) 146-482909-20-2024 [id number]= 7 age, female, CHF, CAD/vascular disease, diabetes Currently on EKG patient is in sinus rhythm Continue amiodarone 200 mg a day and Cardizem 240 daily she remains on Eliquis anticoagulation without any bleeding tendenciesUnRiverside Methodist Hospital09-20-2024 NoteAmiodarone Monitoring: CBC annually-stable ALT, AST annually-stable TSH annually-stable Cxray annually-ordered Dilated eye exam Annually- recently completed per pt PFT Annually- ordered CT chest Consideration EKG Annually and PRNUnRiverside Methodist Hospital09-20-2024 Note Hypertension is unchanged. Currently blood pressure is well-controlled 130/68 continue Cardizem, hydrochlorothiazide and lisinopril Continue current treatment regimen. Continue current medications. Blood pressure will be reassessed at the next regular appointment. Renal function stableUnRiverside Methodist Hospital09-20-2024 NoteCoronary artery disease is unchanged. No concerning symptoms at this time Remains on goal-directed medical therapy of Lipitor no aspirin in light of Eliquis, lisinopril. Continue current treatment regimen. Continue current medications. Cardiac status will be reassessed in 6 months.[facility]09-20-2024 NoteNYHC II currently euvolemic without exacerbation No concerning symptoms today Continue GDMT-currently on lisinopril and hydrochlorothiazide no Diuretic therapy currently required Monitor daily weights, I&O, fluid restriction 1.5-2L/day, renal function and electrolytes-[facility]09-20-2024 NoteNo concerning symptoms Will monitor with routine echocardiogram Discussed with patient to call office for any chest pain, shortness of breath, palpitations, syncope and she voiced understanding.[facility]09-20-2024 NotePt here for a six month follow up. Pt denies sob, chest pain, palpatations Review of Systems Cardiovascular: Positive for leg swelling. Hematologic/Lymphatic: Bruises/bleeds easily. Musculoskeletal: Positive for arthritis and joint pain. Neurological: Positive for loss of balance and weakness. All other systems reviewed and are negative.[facility] 08-11-2024 NoteUTP CARDIOLOGY PROGRESS NOTE HPI: Fatuma [...] sounds. Abdominal: General: Pj (more content not included)...[facility] 05-16-2024 History of Present illness Narrative* Tutu [...] will have to referher out to local art conservator/ heel room supervisor. Patient was advised due to multiple comorbidities [...] signs of skin breakdown. documented in this encounterFreeman Neosho [id number] NoteUT Electrophysiology Consult Note: Reason for visit: [...] on file Intimate Partner Violence: Unknown (01/13/2024) [place] Safety & Environment Fear of Current or [...] age Level of D (more content not included)...[facility] 12-14-2023 Evaluation note* Encounter Date Diagnosis Assessment Notes Treatment Notes Treatment Clinical Notes Nov, Type 2 diabetes mellitus with diabetic polyneuropathy, without long-term current use of insulin (ICD-10 - E11.42) [employer] Other 01-04-2024 Evaluation note* Encounter Date Diagnosis [...] are maintaining regular scheduled appts with their automobile detailer. Cardioverted late September at [facility]. Continue Amiodarone and Eliquis Nov, Acute blood [...] use, the patient reduces the risk for RI, CVA, HTN, cardiac dysrhythmias and sudden cardiac [...] and structure, left thigh (ICD-10 - M85.852) [employer] Other 01-02-2024 NotePatient here for follow up cardioversion on 10/21/2023. Doing very well. Denies chest pain, SOB, palpitations, lightheadedness/syncope, and bleeding on Eliquis. Review of Systems Cardiovascular: Positive for leg swelling. Hematologic/Lymphatic: Bruises/bleeds easily. Musculoskeletal: Positive for arthritis and joint pain. Neurological: Positive for loss of balance and weakness. All other systems reviewed and are negative.[facility] 11-23-2023 NoteUT Electrophysiology Consult Note: Reason for [...] Neck: supple, trachea midline (more content not included)...[facility]12-21-2023 Evaluation note* Encounter Date Diagnosis Assessment Notes [...] are maintaining regular scheduled appts with their automobile detailer. Oct, Other postprocedural complications and disorders of genitourinary system (ICD-10 - N99.89) Oct, Other retention of urine (ICD-10 - R33.8) PVR > 1000 after which baldwin was placed. She was treated for UTI and baldwin removed d/c antispasmotic due to anticholinergic side effects May require referral to [employer] Other [id number] Evaluation note* Encounter Date Diagnosis Assessment Notes [...] are maintaining regular scheduled appts with their automobile detailer. Today was in NSR Oct, Acute cystitis without hematuria (ICD-10 - N30.00) Empirically treating w/ Urine C/S pending PVR 60ml [facility] increased risk of infected prosthesis [employer] Other 11-30-2023 NoteDIRECT CARDIOVERSION PROCEDURE NOTE Date: 10/21/2023. Type of procedure: DC Cardioversion. Performed by: Santiago Spivey MD QUANTITATIVE MANAGER: Dr Gela Nowak Informed consent: Signed by [...] and consider ablation. Santiago Spivey MD Cardiac ElectrophysiologyUnRiverside Methodist Hospital11-30-2023 Note Patient: Fatuma Fair Procedure Information Date/Time: 10/21/23 1040 Procedure: Cardioversion - TO BE DONE END OF SEPTEMBER BEFORE GI Location: [facility] QUANTITATIVE MANAGER HOLDING ROOM / [facility] (Cath) Providers: Santiago Spivey MD [...] products. Plan discussed with attending. Additional Equipment RequestsUnRiverside Methodist Hospital11-24-2023 Evaluation note* Encounter Date Diagnosis Assessment Notes [...] are maintaining regular scheduled appts with their automobile detailer. No acute bleeding at this time Sep, [...] urine and if clear will remove baldwin [employer] Other 11-16-2023 Evaluation note* Encounter Date Diagnosis [...] are maintaining regular scheduled appts with their automobile detailer. No ongoing bleeding complications Sep, Type 2 [...] use, the patient reduces the risk for RI, CVA, HTN, cardiac dysrhythmias and sudden cardiac deaths.The patient is also aware of the association between SHIRA and morning headaches, daytime somnolence, fatigue and obesity, which also has been improved with continued use.The patient is compliant with treatment, wearing the equipment every night for greater than 4 hours.The patient is instructed to continue use of the CPAP for SHIRA treatment. [employer] Other 11-09-2023 Evaluation note* Encounter Date Diagnosis Assessment Notes Treatment Notes Treatment Clinical Notes Sep, Acute blood loss anemia (ICD-10 - D62) [employer] Other 11-09-2023 Evaluation note* Encounter Date Diagnosis Assessment Notes Treatment Notes Treatment Clinical Notes Sep, MALIKA (generalized anxiety disorder) (ICD-10 - F41.1) [employer] Other 11-08-2023 NotePROCEDURE: XR ABDOMEN (KUB) (SINGLE [...] by: Rinku Jarvis MD 09/29/23 Final resultSaint [facility]11-04-2023 NotePROCEDURE: XR FEMUR RIGHT (MIN 2 VIEWS) [...] Signed by: Shereen Cunha MD 09/25/23 Final resultSSeymour Hospital11-01-2023 Evaluation note* Encounter Date Diagnosis Assessment Notes Treatment Notes Treatment Clinical Notes Sep, COVID (ICD-10 - U07.1) [email or web address] Other 10-24-2023 NoteUT Electrophysiology Consult Note: Reason [...] Peripheral Pulses Radial P (more content not included)...[facility] 08-30-2023 Evaluation note* Encounter Date Diagnosis Assessment [...] test for COVID and call w/ results [employer] Other 09-20-2023 Evaluation note* Encounter Date Diagnosis Assessment Notes Treatment Notes Treatment Clinical Notes Jul, Type 2 diabetes mellitus with hyperglycemia, without long-term current use of insulin (ICD-10 - E11.65) [employer] Other 08-28-2023 Evaluation note* Encounter Date Diagnosis [...] Continue GERD precautions Continue PPI w/o interruption [employer] Other 08-25-2023 Evaluation note* Encounter Date Diagnosis Assessment Notes Treatment Notes Treatment Clinical Notes Jun, Persistent atrial fibrillation (ICD-10 - I48.19) [employer] Other 08-04-2023 Evaluation note* Encounter Date Diagnosis Assessment Notes Treatment Notes Treatment Clinical Notes Jun, Dysuria (ICD-10 - R30.0) [employer] Other 07-31-2023 Evaluation note* Encounter Date Diagnosis Assessment Notes Treatment Notes Treatment Clinical Notes May, Dysuria (ICD-10 - R30.0) [employer] Other 06-20-2023 Evaluation note* Encounter Date Diagnosis [...] use, the patient reduces the risk for RI, CVA, HTN, cardiac dysrhythmias and sudden cardiac [...] E05.90) Recheck TSH, FT4, TT3 and TSI [employer] Other 05-30-2023 Evaluation note* Encounter Date Diagnosis [...] current use of insulin (ICD-10 - E11.65) [employer] Other 05-15-2023 Evaluation note* Encounter Date Diagnosis Assessment Notes Treatment Notes Treatment Clinical Notes March, MALIKA (generalized anxiety disorder) (ICD-10 - F41.1) [employer] Other 03-22-2023 Evaluation note* Encounter Date Diagnosis Assessment Notes Treatment Notes Treatment Clinical Notes Jan, Dysuria (ICD-10 - R30.0) [employer] Other 03-20-2023 Evaluation note* Encounter Date Diagnosis Assessment Notes Treatment Notes Treatment Clinical Notes Jan, Abnormal TSH (ICD-10 - R79.89) Jan, Thyrotoxicosis without thyroid storm, unspecified thyrotoxicosis type (ICD-10 - E05.90) [employer] Other 03-20-2023 Evaluation note* Encounter Date Diagnosis [...] are maintaining regular scheduled appts with their automobile detailer. No bleeding complications Refer to Cardiology for [...] High risk medication use (ICD-10 - Z79.899) [employer] Other 03-13-2023 Evaluation note* Encounter Date Diagnosis Assessment Notes Treatment Notes Treatment Clinical Notes Jan, Persistent atrial fibrillation (ICD-10 - I48.19) [employer] Other 03-07-2023 Evaluation note* Encounter Date Diagnosis [...] M25.551) Ice, heat and Voltaren Gel. 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 [employer] Other [id number] NotePROCEDURE: XR KNEE RT 3V HISTORY: Idiopathic osteoarthritis ; chronic right knee pain COMPARISON: None. FINDINGS: BONES:Complete loss of the medial joint space with [id number] articulation prominent periarticular degenerative osteophytes. Moderate narrowing of the anterior compartment. No appreciable narrowing of the lateral joint space. SOFT TISSUES:Calcium deposition within the lateral meniscus. EFFUSION:None visible. OTHER: Negative. IMPRESSION: 1. Marked degenerative joint disease predominantly involving the medial compartment. 2. No acute bone abnormality. Electronically authenticated by: CHING MAHMOOD Date: 2022-10-01 08:09[facility] HospitalEvaluation noteNo InformationNort [email or web address] Other Evaluation note* Diagnosis Onset Date Resolution [...] noneactive Screening mammogram for breast cancer noneactive [facility] Work Phone: Evaluation note* Diagnosis Onset [...] acute Screening mammogram for breast cancer noneactive [facility] Work Phone: Evaluation note* Diagnosis Onset Date Resolution Status Essential hypertension acute Hyperlipidemia, mixed acute Paroxysmal atrial fibrillation acute Stage 3b chronic kidney disease acute Subclinical hyperthyroidism acute Type 2 diabetes mellitus with diabetic polyneuropathy acute Type 2 diabetes mellitus with hyperglycemia acute [facility] Work Phone: Evaluation note* Diagnosis Onset Date Resolution Status COVID acute Essential hypertension acute GERD (gastroesophageal reflux disease) acute Hyperlipidemia, mixed acute Hypothyroid acute Paroxysmal atrial fibrillation acute Stage 3b chronic kidney disease acute Type 2 diabetes mellitus with diabetic polyneuropathy acute Type 2 diabetes mellitus with hyperglycemia acute [facility] Work Phone: Evaluation note* Diagnosis Onset Date Resolution Status COVID acute Essential hypertension acute GERD (gastroesophageal reflux disease) acute Hypothyroid acute Paroxysmal atrial fibrillation acute Stage 3b chronic kidney disease acute Type 2 diabetes mellitus with diabetic polyneuropathy acute Type 2 diabetes mellitus with hyperglycemia acute [facility] Work Phone: Evaluation note* Diagnosis Pain [...] length (acquired) documented in this encounter [facility] general Narrative - Reported* Type Description Date [...] 2012 Surgical History CATARACTS Surgical History HYSTERECTOMY [employer] Other History general Narrative - Reported* Type [...] History HYSTERECTOMY Hospitalization History see surgical history [employer] Other History general Narrative - Reported* Type [...] shaft 09/2023 Hospitalization History see surgical history [employer] Other Reason for referral (narrative)No reason for referral information availableSt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 Expl anation ACP-Advance Directive 10/07/2023 3:40 AM Date Activated Date Inactivated Comments 09/25/2023 2:16 AM 09/30/2023 2:39 PM Date Activated Date Inactivated Comments 01/20/2013 3:36 PM 01/20/2013 6:36 PM Reason for Referral Reason New onset atrial fib rillation Diagnosis 1 Persistent atrial fi brillation (I48.19) Referral Organization [facility] Referring Provider First Name Harsha Referring Provider Last Name Kamran Referring Provider Specialty Internal Me dicine Referred Organization [facility] Referred Provider Mirian Beyer Referred Address [address], [place],[address] Referred Provider Specialty Cardiology Referral Priority Routine [...] Complaint and Reason for Visit Chief Complaint Skilled Nursing D/C Fol low Up Amb Documentation Medicare [...] 03 1:54pm GERD (gastroesophageal reflux disease) F [facility] 2024 1:54pm Hypothyroid January 03, 2025 [...] 03 1:54pm GERD (gastroesophageal reflux disease) F [facility] 2024 1:54pm Hypothyroid January 03, 2025 [...] 12:42am Type 2 diabetes mellitus with hyperglyce [facility] January 29, 2025 12:42am UTI (urinary tract [...] 03 1:54pm GERD (gastroesophageal reflux disease) F [facility] 2024 1:54pm Hypothyroid January 03, 2025 [...] Burst Fracture January 29, 2025 7:5 0am Skilled Nursing Visit February 08, 2025 11: 59pm 2 week po [place] February 19, 2025 1:3 8pm 6 mo po [facility] March 21, 2025 12: 53pm Reason for Visit Admit Date Essential hypertension January 03 1:54pm GERD (gastroesophageal reflux disease) F [facility] 2024 1:54pm Hypothyroid January 03, 2025 [...] po [facility] March 21, 2025 12: 53pm Skilled Nursing Visit March 22, 2025 11:59p m Skilled Nursing Visit April 12, 2025 11:59 pm Skilled Nursing Visit April 26, 2025 11:59 pm D/C [place] May 04, 2025 11:3 4am UA, burning, itching, frequency May 1:45pm Reason for Visit Admit Date Burst fracture of T12 vertebra February 12:53pm Burst fracture of T12 vertebra April 11:34am Essential hypertension May 04, 2025 1 1:34am GERD (gastroesophageal reflux disease) J [facility] 2024 11:34am Hypothyroid May 04, 2025 11:3 4am Paroxysmal atrial fibrillation April 11:34am Stage 3b chronic kidney disease April 11:34am Type 2 diabetes mellitus with diabetic p olyneuropathy May 04, 2025 11:34am Type 2 diabetes mellitus with hyperglyce [facility] May 04, 2025 11:34am Chief Complaint Admit Date Skilled Nursing Visit April 12, 2025 11:59 pm Skilled Nursing Visit April 26, 2025 11:59 pm D/C [place] May 04, 2025 11:3 4am UA, burning, itching, frequency May 1:45pm Wellness July 06, 2025 2: 13pm Reason for Visit Admit Date Burst fracture of T12 vertebra April 11:34am Essential hypertension May 04, 2025 1 1:34am GERD (gastroesophageal reflux disease) J [facility] 2024 11:34am Hypothyroid May 04, 2025 11:3 [...] InformationConcernsNo InformationWILLOWSERRORNo InformationWillowsNew ordersrefillWillowsWeekend Call -- WillowsNew OrdersTCOHIOHE[facility] HHWillowsnursing home d/c follow upHH nurseMedication Clarification INFORMATION SOURCE (unrecogn ized section and content) DATE CREATED AUTHOR 02/14/2023 [facility] DATE CREATED AUTHOR AUTHOR'S ORGANIZ ATION 07/13/2023 [facility] DATE CREATED AUTHOR AUTHOR'S ORGANIZ ATION 10/04/2023 [facility] DATE CREATED AUTHOR AUTHOR'S ORGANIZ ATION 05/17/[address] [facility] DATE CREATED AUTHOR AUTHOR'S ORGANIZ ATION 08/14/2024 [facility] DATE CREATED AUTHOR AUTHOR'S ORGANIZ ATION 01/25/2025 [facility] DATE CREATED AUTHOR AUTHOR'S ORGANIZ ATION 05/11/2025 [facility] Care Teams (unrecognized sec tion [...] Team Status: Active Member Role Status Clayton Andrwe DO Primary Care Provider Active Start: January [...] September 06, 2024 End: September 06, 2024 [employer] Lathe Operator Relationship Specialty Start Date End Date Harsha Andrew MD [address] [facility] [place] [id number] PCP - General Internal Medicine 05/16/24 [employer] Lathe Operator Relationship Specialty Start Date End Date Harsha Andrew DO [address] [place] [id number] PCP - General 10/06/12 [employer] L[employer] Operator Relationship Specialty Start Date End Date Harsha Andrew DO [address] [place] [id number] PCP - General 10/06/12 Team Status: Inactive [...] BE BASED ON THE PRIMARY CLINICAL RECORDS. [facility]. provides no warranty or guarantee of the accuracy or completeness of information in this document.
== END 2025-07-27 14:55 | disposition home or self-care (01) ==
PROVIDERS: PCP Internal Medicine; Visit Provider Internal Medicine
DX: M54.9 Dorsalgia, unspecified (principal); Z87.81 Personal history of (healed) traumatic fracture; M48.56XA Collapsed vertebra, not elsewhere classified, lumbar region, initial encounter for fracture
CPT/HCPCS: 72072; 72100

== ENCOUNTER 2025-08-07 10:37 | Outpatient (OUT) | payer MEDICARE, SELFPAY ==
--- OUTSIDE RECORDS SUMMARY | 2025-08-07 10:48 | XMS_ITS | CCD ---
Author Organization [facility] CliniSyms Care Team Providers Care Vp Platforms Name Role Phone Harsha Andrew Unavailable KAMRAN, [...] Isidro Dahl Attending Unavaila ble Ball DO, [facility] Primary Care Unavail able Seamus SANDHU, Isidro Dahl Attending Unavaila ble Denike DO, Frank Del Rosario Attending Unavaila ble Ball DO, [facility] Primary Care Unavail able Seamus SANDHU, Isidro Dahl Attending Unavaila ble Ball DO, [facility] Primary Care Unavail able Seamus SANDHU, Isidro Dahl Attending Unavaila ble Ball DO, [facility] Primary Care Unavail able DAKOTA MAK Admitting Unavailable RAY, CESAR Referring Unavailable BALL, HARSHA Primary Care Unavailable FATMATA (LATOSHA), JUSTIN Berry Attending Santos UNGER, TUTU Hill Attending Unavailable Harsha Andrew MD Primary Care Provider Kamran DO, Harsha Primary Care Provider RICHARD DAY Referring Unavailable KAMRAN, HARSHA Primary Care Unavailable CHING COHEN Referring Unavailable KAMRAN, HARSHA Primary Care Unavailable KAMRAN, HARSHA Primary Care Unavailable CHING COHEN Referring Unavailable KAMRAN, HARSHA Primary Care Unavailable RICHARD DAY Referring Unavailable KAMRAN, HARSHA Primary Care Unavailable Pay Garrett HI Attending Provider Kamran HI, Harsha Primary Care Provider Omari SANDHU, Sandy Admit Provider [phone] Jignesh Gonzalez Other Provider UnavailEverardo Landrum MD Other Provider Anum [place] APRN Other Provider [phone] Donell Rosenbaum DO Other Provider [phone] Alec Alvarez MD Attending Provider [phone] PayGarrett Admitting Unavailable Pay, Garrett Attending Unavailable Ball, Harsha Admitting Unavailable Ball, Harsha Primary Care Unavailable Ball, Harsha Attending Unavailable BallHarsha Primary Care Unavailable Alec Alvarez Attending Unavailab Jignesh Martínez Consulting Unavailable Sandy Salcido Admitting Unavailable Everardo Perez Consulting Unavailable Anum Grove Consulting Unavailable Donell Rosenbaum Consulting Unavailable Harsha Andrew DO Primary Care Provider Ilsa DODonell Attending Provider Kamran HI, Harsha Attending Provider Kamran HI, Harsha Primary Care Provider Kamran HI, Harsha Attending Provider MATT SOLIS Attending Unavailable Harsha Andrew DO Primary Care Provider [phone] Kamran HI, Harsha Attending Provider Allergies Allergy Classification Reported Allergen(s) Allergy Type Date of Onset Reaction(s) Facility (20 sources) Linagliptin Drug Allergy 02-14-20 24 Unknown, Unknown Reaction [facility] (20 sources) metFORMIN Drug Allergy 11-22-19 20 Unknown, Unknown Reaction [facility] (20 sources) Sertraline; Translations: [SERTRALINE] Drug Allergy 01-16-20 13 Unknown, Unknown Reaction [facility] (20 sources) Sulfacetamide Drug Allergy 02-14-20 24 Unknown, Unknown Reaction [facility] (2 sources) Linagliptin Drug Allergy Unknown [facility] (1 source) metFORMIN Drug Allergy [facility] (1 source) Sertraline Drug Allergy 05-01-20 13 [facility] (1 source) Sulfonamides (Antibiotic) Drug allergy (disorder) [facility] (2 sources) Sertraline Drug Allergy 11-22-19 SERTRALINE HCL Comment:Freete xt Needs Updated. [facility] Other (2 sources) Allergies Reconciled Propensity to adverse reactions Unknown [facility] Other (20 sources) Sulf-10 Drug allergy Comment:sulfa drugs [facility] Other (2 sources) patient allergy list reviewed by nurse or physicia Propensity to adverse reactions 11-22-19 Comment:Done [facility] Other (16 sources) Sulfonamides (Antibiotic); Translations: [Sulfa (Sulfonamide Antibiotics)] Allergy to substance 02-14-20 Comment:sulfa drugs [facility] (1 source) Linagliptin Drug Allergy 05-04-20 [facility] (1 source) metFORMIN Drug Allergy 05-04-20 [facility] (1 source) Sertraline Drug Allergy 05-04-20 [facility] (1 source) Sulfacetamide Drug Allergy 05-04-20 [facility] Medications Current Medications Medication [...] extended release oral tablet (2 sources) Uncompetitive C-impyyv-E-aspartate Receptor Antagonist, Sigma-1 Agonist take 1 tablet [...] Glucose Sensor (Freestyle [place] 2 Sensor) kit (20 sources) Start: 05-04-2025 Flash Glucose Sensor (Freestyle [...] tablet Active 25 MG PO Every morning 90 May 17, 2025 8:38am Complies with drug therapy Start: 01-31-2024 End: 05-10-2025 take 1 tablet by mouth once daily Hydrochlorothiazide 25 mg tablet Discontinued 0 .ROUTE .COMPLEX January 31, 2024 12:41pm May 10, 2025 11:41am Take 1 tablet by mouth once daily Start: 01-31-2024 End: 01-31-2024 take 1 tablet by mouth once daily Hydrochlorothiazide 25 mg tablet Discontinued 25 MG PO Daily 30 January 31, 2024 12:00am January 31, 2024 12:41pm Ibadronate (2 sources) Ibandronate Sodi um (BONIVA IV) Infuse intravenously. Takes this 4 times a year Active 3 ml ibandronic acid 1 mg/ml prefilled syringe (6 sources) Bisphosphonate inject 3 mL intravenously every three months ibandronate (Boniva) 3 MG/3ML solution inject 3 milliliter by intravenous route every 3 months over Intravenous Active Boniva Active 3 ml insulin lispro 100 unt/ml pen injector (20 sources) Insulin Analog Start: 07-06-2025 Insulin Lispro (Humalog Kwikpen Insulin) 100 unit/mL insulin pen Active 0 sliding scale dose SUBCUT Use as Directed Protocol: *If the corrective scale dose has been administered within the past 4 hours, do not use corrective scale again unless approved by prescriber* Condition: Custom Scale Condition: Dose/Route: Instructions: Condition: Fingerstick Blood Glucose Dose/Route: Insulin Units Condition: 131-180 mg/dl Dose/Route: 3 units Condition: 181-240 mg/dl Dose/Route: 5 units Condition: 241-300 mg/dl Dose/Route: 8 units Condition: 301-350 mg/dl Dose/Route: 10 units Condition: 351-400 mg/dl Dose/Route: 12 units Condition: Greater than 400 mg/dl Dose/Route: 14 units 15 July 06, 2025 6:07pm Please contact the information source for Protocol details. Complies with drug therapy Start: 03-13-2025 End: 07-06-2025 Insulin Lispro (Humalog Kwik pen Insulin) 100 [...] than 400 mg/dl Dose/Route: 12 units 15 June 25, 2025 5:09pm July 06, 2025 6:07pm Please contact the information source for Protocol [...] or = 400 mg/dl Instructions: Call Provider March 12, 2025 12:27pm March 13, 2025 [...] lunch, and with evening meal Insulin Lispro (Humalog Kwikpen Insulin) 100 unit/mL [...] 12:00am miconazole nitrate 20 mg/ml vaginal cream (20 sources) Azole Antifungal Start: 05-09-2025 End: 06-15-2025 [...] release(DR/EC) Active 10 MG PO Daily 90 90 May 22, 2025 10:49am Complies with [...] daily. Active tiZANidine 2 mg oral capsule (8 sources) Central alpha-2 Adrenergic Agonist Start: End: take 1 capsule by mouth once daily at bedtime Tizanidine 2 mg capsule Active 2 MG PO Daily at bedtime 90 May 22, 2025 10:51am Complies with drug [...] Active warfarin sodium 5 mg oral tablet (14 sources) Vitamin K Antagonist Start: 05-22-2025 take [...] PO Twice daily as needed for anxiety 10 5 February 02, 2025 10:01am March 17, 2025 5:02pm [...] mg tablet Discontinued 200 MG PO Daily 90 90 May 10, [...] 40 MG PO Daily at bedtime 90 90 May 10, 2025 4:07pm May 17, 2025 8:39am Start: 02-07-2024 End: 05-10-2025 take 1 tablet by mouth once daily in the evening Atorvastatin 40 mg tablet Discontinued 0 .ROUTE .COMPLEX 90 February 07, 2024 1:28pm May 10, 2025 [...] mg / cholecalciferol 200 unt oral tablet (17 sources) Vitamin D Start: 02-03-2024 End: 02-14-2024 take 1 tablet by mouth once daily Calcium Carbonate-Vitamin D3 600 mg-5 mcg (200 unit) tablet Discontinued 1 TAB PO Daily February 03, 2024 12:00am February 14, 2024 1:59pm cephalexin 250 mg oral capsule (20 sources) Cephalosporin Antibacterial Start: 02-02-2025 End: 02-19-2025 [...] Active cyclobenzaprine hydrochloride 10 mg oral tablet (7 sources) Muscle Relaxant Start: 02-02-2025 End: 05-04-2025 [...] hr Discontinued 240 MG PO Daily 90 May 10, 2025 4:07pm May 17, [...] Active docusate sodium 50 mg / sennosides, senior care 8.6 mg oral tablet (7 sources) Start: 02-02-2025 End: 05-04-2025 take 2 [...] Subcutaneous q am Oct, Active Insulin Lispro 100 unit/mL insulin pen (5 [...] mg tablet Discontinued 20 MG PO Daily May 10, 2025 4:08pm May 17, 2025 8:39am Start: 04-18-2024 End: 05-10-2025 take 1 tablet by mouth once daily Lisinopril 20 mg tablet Discontinued 0 .ROUTE .COMPLEX April 18, 2024 2:27pm May 10, 2025 [...] 2024 2:27pm melatonin 5 mg oral capsule (17 sources) Start: 02-14-2024 End: 05-04-2025 take 1 [...] Discontinued 100 MG PO Every 12 hours 10 June 15, 2025 12:00am July 06, 2025 2:22pm must administer with a meal/food Start: 05-30-2024 End: 07-18-2024 take 1 capsule by mouth twice daily at mealtime Nitrofurantoin Monohyd/M-Cryst (Macrobid) 100 mg capsule Discontinued 100 MG PO Twice daily 10 July 10, 2024 12:00am July 18, 2024 1:59pm must administer with a meal/food traMADol hydrochloride 50 mg oral tablet (13 sources) Opioid Agonist Start: 02-06-2025 End: 05-04-2025 take 1 tablet by mouth every eight hours as needed for pain Tramadol 50 mg tablet Discontinued 50 MG PO Every 8 hours as needed for pain 45 February 06, 2025 6:09pm May 04, 2025 11:48am Start: 02-02-2025 End: 02-06-2025 take 1 tablet by mouth every six hours as needed for pain Tramadol 50 mg tablet Discontinued 50 MG PO Every 6 hours as needed for pain 10 February 02, 2025 12:00am February 06, 2025 [...] [Stage 3b chronic kidney disease] Onset: 05-16-2024 4 Chronic Complications of surgical procedures or medical care (3 sources) Other postprocedural complications and disorders of genitourinary system Episodic Congestive heart failure; nonhypertensive (4 sources) Chronic heart failure co-occurrent with normal ejection fraction; Translations: [Chronic diastolic (congestive) heart failure] Onset: 07-04-2023 09-25-2023 Chronic Coronary atherosclerosis and other heart disease (4 sources) Coronary arteriosclerosis; Translations: [Atherosclerotic heart disease of [place] coronary artery with other forms of angina pectoris] Onset: 09-25-2023 09-25-2023 Chronic Diabetes mellitus with complications (20 sources) Hyperglycemia due to type 2 diabetes mellitus; Translations: [Type 2 diabetes mellitus with hyperglycemia] Onset: 02-08-2015 Chronic Diabetes mellitus without complication (2 sources) Diabetes mellitus; Translations: [Type 2 diabetes mellitus without complications] Onset: 09-25-2023 09-25-2023 Chronic Disorders of lipid metabolism (20 sources) Mixed hyperlipidemia; Translations: [Mixed hyperlipidemia] Onset: 09-04-2015 Chronic E Codes: Fall (13 sources) Fall; Translations: [Unspecified fall, initial encounter] [...] (7 sources) Nonrheumatic aortic (valve) insufficiency; Translations: [Aortic valve disorder] Onset: 05-14-2022 09-25-2023 Chronic Immunizations and screening for infectious disease [...] sources) H/O: high risk medication; Translations: [Other alf (current) drug therapy] Episodic Other aftercare (2 sources) Long-term current use of drug therapy; Translations: [Other alf (current) drug therapy] Episodic Other aftercare (2 sources) Long-term current use of insulin; Translations: [director long term care (current) use of insulin] Episodic Other aftercare (4 sources) Drug therapy finding; Translations: [Other 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 (current) drug therapy] 02-14-2024 Episodic Other aftercare (8 sources) Long-term current use of anticoagulant; Translations: [FPC (current) use of anticoagulants] 01-29-2025 Episodic Other bone disease and musculoskeletal deformities (20 sources) Other specified disorders of bone density and structure, left thigh; Translations: [Osteopenia of left hip] Episodic Other bone disease and musculoskeletal deformities (1 source) Other specified disorders of bone density and structure, right thigh Episodic Other bone disease and musculoskeletal deformities (10 sources) Osteopenia; Translations: [Other specified disorders of [...] in right foot] 05-16-2024 Episodic Other fractures (13 sources) Fracture of twelfth thoracic vertebra; Translations: [Stable burst fracture of T11-T12 vertebra, initial encounter for closed fracture] 01-29-2025 Episodic Other fractures (4 sources) Compression fracture of lumbar spine; Translations: [Wedge compression fracture of first lumbar vertebra, initial encounter for closed fracture] 07-30-2025 Episodic Other gastrointestinal disorders (20 sources) Dysphagia; [...] fall; Translations: [History of falling] Episodic Other injuries and conditions due to external causes (2 sources) Compression fracture ; Translations: [Fracture of unspecified bone, closed] 07-30-2025 Episodic Other lower respiratory disease (20 sources) [...] conditions (not mental disorders or infectious disease) (18 sources) Other specified abnormal findings of blood [...] medications] Onset: 12-07-2017 Unclassified (3 sources) A [facility] screening has identified you as [...] Four Ways to Beat the Frailty Risk [email or web address]-ybt-qsbsyflgiy/ rcsq-qqjesa-uabb-ways -gm-tbtk-ewq-fra ilty-risk 02-02-2025 Unclassified (1 source) M81.0 - Age-related osteoporosis without current pathological fracture,S32.010A - Wedge compression fracture of first lumbar vertebra, initial encounter for closed fracture Viral infection (13 sources) Disease caused by 2019-nCoV; Translations: [COVID-19] [...] THOR RGN] Onset: 05-07-2022 Episodic Other aftercare (4 sources) Other alf (current) drug therapy; Translations: [OTH LITERARY AGENT CURRENT DRUG THERAPY] Onset: 02-13-2023 Episodic Other aftercare (2 sources) Surgical follow-up; Translations: [Surgery follow-up examination] Onset: 10-19-2012 Episodic Other aftercare (5 sources) director long term care (current) use of anticoagulants; Translations: [Long-term (current) [...] Test Name Value Interpretation Reference Range Facility Basophils Auto (Bld) [#/Vol] Ordered By: Harsha Andrew on 07-06-2025 Basophils (Bld) [#/Vol] 0.0 10 3/uL 0.0-0.1 [facility] Basophils/100 WBC Auto (Bld) Ordered By: Harsha Andrew on 07-06-2025 Basophils/100 WBC (Bld) 0.5 % 0.2-2.0 [facility] Eosinophils/100 WBC Auto (Bl d)Ordered By: Harsha Andrew on 07-06-2025 Eosinophils/100 WBC (Bld) 0.8 % Low 0.9-7.0 [facility] Erythrocyte distribution wid th Auto (RBC) [Ratio]Ordered By: Harsha Andrew on 07-06-2025 Erythrocyte distribution width (RBC) [Ratio] 13.8 % 11.0-15.0 [facility] Globulin Calc (S) [Mass/Vol] Ordered By: Harsha Andrew 07-06-2025 Globulin (S) [Mass/Vol] 4.0 g/dL [facility] Glomerular filtration rate ( GFR) estimation in non- AmericanOrdered By: Harsha Andrew on 07-06-2025 GFR/1.73 sq M.predicted among non-blacks MDRD (S/P/Bld) [Vol rate/Area] 53 mL/min/{1.73_m2} Low >=60 mL/min/1.7 3m 2 [facility] Glucose mean value [Mass/vol ume] in Blood Estimated from glycated hemoglobinOrdered By: Harsha Andrew on 07-06-2025 Average glucose Estimated from glycated hemoglobin (Bld) [Mass/Vol] 171 mg/dL [facility] Hematocrit Auto (Bld) [Volum e fraction]Ordered By: Harsha Andrew on 07-06-2025 Hematocrit (Bld) [Volume fraction] 38.6 % 36.0-48.0 [facility] Hemoglobin A1c percentageOrd ered By: Harsha Andrew on 07-06-2025 HbA1c (Bld) [Mass fraction] 7.6 % High 4.5-6.2 [facility] Comment on above: ADA RECOMMENDED LIMI T 4.0 - 6.0ADA THERAPEUTIC TARGET < 7.0ACTION SUGGESTED> 7.0 Hemoglobin [Mass/volume] in BloodOrdered By: Harsha Andrew on 07-06-2025 Hemoglobin (Bld) [Mass/Vol] 12.4 g/dL 12.0-16.0 [facility] INR in Platelet poor plasma by Coagulation assayOrdered By: Harsha Andrew on 07-06-2025 INR Coag (PPP) [Relative time] 1.71 {INR} [facility] Comment on above: DESIRED INR:2.0-3.0 CONDITIONS NOT LISTED BELOW2.5-3.5 FOR PROSTHETIC HEART VALVE REPLACEMENT2.5-3.5 RECURRENT THROMBOSIS Laboratory - Chemistry and C hemistry - challengeOrdered By: Harsha Andrew on 07-06-2025 Albumin [Mass/Vol] 3.5 g/dL 3.4-5.0 [facility] ALP [Catalytic activity/Vol] 70 U/L 46-116 [facility] ALT [Catalytic activity/Vol] 45 U/L 14-59 [facility] AST [Catalytic activity/Vol] 38 U/L High 15-37 [facility] Bilirubin [Mass/Vol] 0.3 mg/dL 0.2-1.0 [facility] Calcium [Mass/Vol] 9.1 mg/dL 8.5-10.1 [facility] Chloride [Moles/Vol] 102 mmol/L 98-107 [facility] CO2 [Moles/Vol] 30.3 mmol/L 21.0-32.0 [facility] Creatinine [Mass/Vol] 1.01 mg/dL 0.55-1.02 [facility] GFR/1.73 sq M.predicted MDRD (S/P/Bld) [Vol rate/Area] mL/min/{1.73_m2} >=60 mL/min/1.7 3m 2 [facility] Glucose [Mass/Vol] 197 mg/dL High 74-106 [facility] Potassium [Moles/Vol] 4.6 mmol/L 3.5-5.1 [facility] Protein [Mass/Vol] 7.5 g/dL 6.4-8.2 [facility] Sodium [Moles/Vol] 136 mmol/L 136-145 [facility] TSH Qn 3.833 m[IU]/L High 0.358-3.74 0 [facility] Urea nitrogen [Mass/Vol] 25.0 mg/dL High 7.0-18.0 [facility] Urea nitrogen/Creatinine [Mass ratio] 24.8 mg/mg [facility] Laboratory - Hematology and Cell countsOrdered By: Harsha Andrew on 07-06-2025 Immature granulocytes/100 WBC (Bld) 0.3 % 0.0-0.5 [facility] Leukocytes [#/volume] correc [place] for nucleated erythrocytes in Blood by Automated counOrdered By: Harsha Andrew on 07-06-2025 WBC corrected for nucl RBC Auto (Bld) [#/Vol] 7.9 10 3/uL 4.0-11.0 [facility] Lymphocytes Auto (Bld) [#/Vo l]Ordered By: Harsha Andrew on 07-06-2025 Lymphocytes (Bld) [#/Vol] 1.0 10 3/uL Low 1.2-3.8 [facility] Lymphocytes/100 WBC Auto (Bl d)Ordered By: Harsha Andrew on 07-06-2025 Lymphocytes/100 WBC (Bld) 12.2 % Low 20.5-60.0 [facility] MCH Auto (RBC) [Entitic mass ]Ordered By: Harsha Andrew on 07-06-2025 MCH (RBC) [Entitic mass] 33.2 pg 26.7-34.0 [facility] MCHC Auto (RBC) [Mass/Vol]Or dered By: Harsha Andrew on 07-06-2025 MCHC (RBC) [Mass/Vol] 32.1 g/dL 29.9-35.2 [facility] MCV Auto (RBC) [Entitic vol] Ordered By: Harsha Andrew on 07-06-2025 MCV (RBC) [Entitic vol] 103.2 fL High 81.0-99.0 [facility] Microalbumin [Mass/volume] i n UrineOrdered By: Harsha Andrew on 07-06-2025 Albumin DL <= 20 mg/L (U) [Mass/Vol] 4.3 mg/dL <=30.0 [facility] Monocytes Auto (Bld) [#/Vol] Ordered By: Harsha Andrew on 07-06-2025 Monocytes (Bld) [#/Vol] 0.5 10 3/uL 0.3-0.8 [facility] Monocytes/100 WBC Auto (Bld) Ordered By: Harsha Andrew on 07-06-2025 Monocytes/100 WBC (Bld) 6.5 % 1.7-12.0 [facility] Neutrophils Auto (Bld) [#/Vo l]Ordered By: Harsha Andrew on 07-06-2025 Neutrophils (Bld) [#/Vol] 6.3 10 3/uL 1.4-6.5 [facility] Neutrophils/100 WBC Auto (Bl d)Ordered By: Harsha Andrew on 07-06-2025 Neutrophils/100 WBC (Bld) 79.7 % High 43.0-75.0 [facility] No Panel InformationOrdered By: Harsha Andrew on 07-06-2025 25-Hydroxy Vitamin D Total 56.1 ng/mL [facility] Comment on above: <20 ng/mL Vit D defi cient20-<30 ng/mL Vit D [id number] ng/mL Vit D sufficient>100 ng/mL Potential Toxicity Eosinophils # (Auto) 0.1 10 3/uL 0.0-0.7 [facility] Immature Granulocyte # (Auto) 0.02 10 3/uL 0.00-0.03 [facility] Urine Random Creatinine 98.21 mg/dL 20.00-300. 00 [facility] Platelet mean volume Auto (B ld) [Entitic vol]Ordered By: Harsha Andrew on 07-06-2025 Platelet mean volume (Bld) [Entitic vol] 10.4 fL 9.5-13.5 [facility] Platelets Auto (Bld) [#/Vol] Ordered By: Harsha Andrew on 07-06-2025 Platelets (Bld) [#/Vol] 257 10 3/uL 150-450 [facility] Prothrombin time (PT)Ordered By: Harsha Andrew on 07-06-2025 PT Coag (PPP) [Time] 17.2 s High 9.0-11.6 [facility] RBC Auto (Bld) [#/Vol]Ordere d By: Harsha Andrew on 07-06-2025 RBC (Bld) [#/Vol] 3.74 10 6/uL Low 4.20-5.40 [facility] Serum or plasma albumin/glob ulin mass ratioOrdered By: Harsha Andrew on 07-06-2025 Albumin/Globulin [Mass ratio] 0.9 {ratio} [facility] Serum or plasma anion gap de terminationOrdered By: Harsha Andrew on 07-06-2025 Anion gap [Moles/Vol] 8.3 mmol/L [facility] Urine microalbumin/creatinin e mass ratioOrdered By: Harsha Andrew on 07-06-2025 Albumin/Creatinine DL <= 20 mg/L (U) [Mass ratio] 43.7 mg/g High 0.0-29.9 [facility] Comment on above: NO MICROALBUMINURIA 0-29 MG/GCLINICAL MICROALBUMINURIA 30-300 MG/GMACROALBUMINURIA >300 MG/G Laboratory - Chemistry and C hemistry - challengeOrdered By: Harsha Andrew on 06-15-2025 Bilirubin Ql (U) Negative [facility] Glucose (U) [Mass/Vol] Negative [facility] Ketones Ql (U) Negative [facility] pH (U) 6.0 [pH] [facility] Specific gravity (U) [Rel density] 1.005 [facility] Urobilinogen (U) [Mass/Vol] Negative [facility] Laboratory - Specimen inform ationOrdered By: Harsha Andrew on 06-15-2025 Appearance (U) cloudy [facility] Color (U) darkyellow [facility] Laboratory - UrinalysisOrder ed By: Harsha Andrew on 06-15-2025 Leukocyte esterase Test strip Ql (U) ++ [facility] Nitrite Ql (U) Negative [facility] Protein Ql (U) ++ [facility] No Panel InformationOrdered By: Harsha Andrew on 06-15-2025 Urine Occult Blood +++ [facility] Laboratory - Chemistry and C hemistry - challengeon 05-07-2025 Bilirubin Ql (U) Negative NEGATIVE [facility] Glucose (U) [Mass/Vol] Negative NEGATIVE [facility] Ketones Ql (U) TRACE mg/dL Abnormal NEGATIVE [facility] pH (U) 6.0 [pH] 5.0-9.0 [facility] Specific gravity (U) [Rel density] >=1.030 Abnormal 1.005-1.02 5 [facility] Urobilinogen Qn (U) 0.2 {Abhilash'U}/dL 0.2-1.0 [facility] Laboratory - Specimen inform ationon 05-07-2025 Appearance (U) CLOUDY Abnormal CLEAR [facility] Color (U) DK. YELLOW YELLOW [facility] Laboratory - Urinalysison Leukocyte esterase Test strip Ql (U) LARGE Abnormal NEGATIVE [facility] Nitrite Ql (U) Negative NEGATIVE [facility] Protein Ql (U) 100 mg/dL Abnormal NEG/TRACE [facility] No Panel Informationon 05-07 Urine Occult Blood MODERATE Abnormal NEGATIVE [facility] Urine Cultureon 05-07-2025 Bacteria identified Cx Nom (U) ORGANISM: Pamella albicans (O:CANALB) [place] Count >100,000 PERFORMED BY: [place] [address] PATHOLOGIST CLASS B DRIVER TAMIR MACK M.D. Normal [facility] Comment on above: Performed By: #### C UU #### [facility] [address] [place] [address] Basic Metabolic Panelon 01-20 Anion gap [Moles/Vol] 10.9 mmol/L Normal 6.0-15.0 [facility] Comment on above: Performed By: #### P T, PTT #### [place] [address] [place] Calcium [Mass/Vol] 8.2 mg/dL Low 8.6-10.3 [facility] Comment on above: Performed By: #### P T, PTT #### [place] [address] [place] Chloride [Moles/Vol] 97 mmol/L Low 98-107 [facility] Comment on above: Performed By: #### P T, PTT #### [facility] [address] CO2 [Moles/Vol] 26.9 mmol/L Normal 21.0-31.0 [facility] Comment on above: Performed By: #### P T, PTT #### [facility] [address] Creatinine [Mass/Vol] 0.82 mg/dL Normal 0.60-1.20 [facility] Comment on above: Performed By: #### P T, PTT #### [facility] [address] [place] [address] [place] Creatinine Clr Calc Pharmacy 47.25 Normal [facility] Comment on above: Result Comment: PERF ORMED BY: [place] [address] PATHOLOGIST CLASS B DRIVER ROMAINE HENDERSON M.D. Performed By: #### P T, PTT #### [place] [address] [place] GFR/1.73 sq M.predicted MDRD (S/P/Bld) [Vol rate/Area] mL/min/{1.73_m2} Normal [facility] Comment on above: Performed By: #### P T, PTT #### [address] Glucose [Mass/Vol] 227 mg/dL High 70-100 [facility] Comment on above: Result Comment: [place] Glucose Reference Range is dependent on time and content of last meal. Glucose of more than 200 mg/dL in a nonstressed, ambulatory subject supports the diagnosis of Diabetes Mellitus. ADA recommended reference range Performed By: #### P T, PTT #### [facility] [address] Potassium [Moles/Vol] 3.8 mmol/L Normal 3.5-5.1 [facility] Comment on above: Performed By: #### P T, PTT #### [facility] [address] Sodium [Moles/Vol] 131 mmol/L Low 136-145 [facility] Comment on above: Performed By: #### P T, PTT #### [facility] [address] Urea nitrogen [Mass/Vol] 31 mg/dL High 7-25 [facility] Comment on above: Performed By: #### P T, PTT #### [facility] [address] Basophils Auto (Bld) [#/Vol] Ordered By: Alexandra Cheney on 02-02-2025 Basophils (Bld) [#/Vol] Automated basophil count 0.0-0.2 [facility] Basophils/100 WBC Auto (Bld) Ordered By: Alexandra Cheney on 02-02-2025 Basophils/100 WBC (Bld) Automated basophil % . [facility] Calcium [Mass/volume] in Ser um or PlasmaOrdered By: Alexandra Cheney on 02-02-2025 Calcium [Mass/Vol] Calcium [Mass/volume ] in Serum or Plasma Low 8.6-10.3 [facility] Carbon dioxide, total [Moles /volume] in Serum or PlasmaOrdered By: Alexandra Cheney on 02-02-2025 CO2 [Moles/Vol] Carbon dioxide, tota l [Moles/volume] in Serum or Plasma 21.0-31.0 [facility] Chloride [Moles/volume] in S patricia or PlasmaOrdered By: Alexandra Cheney on 02-02-2025 Chloride [Moles/Vol] Chloride [Moles/vol ume] in Serum or Plasma Low 98-107 [facility] Complete Blood Count Auto Di ffon 02-02-2025 Basophils (Bld) [#/Vol] 0.0 10*3/uL Normal 0.0-0.2 [facility] Comment on above: Result Comment: PERF ORMED BY: [address] [place] [address] PATHOLOGIST CLASS B DRIVER ROMAINE HENDERSON M.D. Performed By: #### P T, PTT #### [facility] [address] [place] [address] [place] Basophils/100 WBC (Bld) 0.2 % Normal . [facility] Comment on above: Performed By: #### P T, PTT #### [facility] [address] [place] [address] [place] Eosinophils (Bld) [#/Vol] 0.1 10*3/uL Normal 0.0-0.45 [facility] Comment on above: Performed By: #### P T, PTT #### [facility] [address] [place] [address] [place] Eosinophils/100 WBC (Bld) 1.0 % Normal . [facility] Comment on above: Performed By: #### P T, PTT #### [address] Erythrocyte distribution width (RBC) [Ratio] 13.5 % Normal 11.9-15.3 [facility] Comment on above: Performed By: #### P T, PTT #### [address] Hematocrit (Bld) [Volume fraction] 34.0 % Normal 34.0-46.4 [facility] Comment on above: Performed By: #### P T, PTT #### [place] [address] [place] Hemoglobin (Bld) [Mass/Vol] 11.7 g/dL Low 11.8-15.4 [facility] Comment on above: Performed By: #### P T, PTT #### [facility] [address] [place] [address] [place] Lymphocytes (Bld) [#/Vol] 0.5 10*3/uL Low 1.00-4.8 [facility] Comment on above: Performed By: #### P T, PTT #### [facility] [address] [place] [address] [place] Lymphocytes/100 WBC (Bld) 4.5 % Normal . [facility] Comment on above: Performed By: #### P T, PTT #### [address] MCH (RBC) [Entitic mass] 34.0 pg Normal 24.7-34.3 [facility] Comment on above: Performed By: #### P T, PTT #### [address] MCV (RBC) [Entitic vol] 98.7 fL Normal 80-100 [facility] Comment on above: Performed By: #### P T, PTT #### [address] Mean Corpuscular HGB Conc 34.4 g/dL Normal 32.0-35.0 [facility] Comment on above: Performed By: #### P T, PTT #### [address] Monocytes (Bld) [#/Vol] 0.8 10*3/uL Normal 0.0-0.8 [facility] Comment on above: Performed By: #### P T, PTT #### [place] [address] [place] Monocytes/100 WBC (Bld) 7.3 % Normal . [facility] Comment on above: Performed By: #### P T, PTT #### [address] Neutrophils (Bld) [#/Vol] 9.9 10*3/uL High 1.8-7.7 [facility] Comment on above: Performed By: #### P T, PTT #### [address] Neutrophils/100 WBC (Bld) 87.0 % Normal . [facility] Comment on above: Performed By: #### P T, PTT #### [address] NRBC% 0.2 /100{WBC} Normal 0-0.5 [facility] Comment on above: Performed By: #### P T, PTT #### [facility] [address] Platelet mean volume (Bld) [Entitic vol] 9.0 fL Normal 6.3-10.7 [facility] Comment on above: Performed By: #### P T, PTT #### [facility] [address] Platelets (Bld) [#/Vol] 179 10*3/uL Normal 150-450 [facility] Comment on above: Performed By: #### P T, PTT #### [facility] [address] RBC (Bld) [#/Vol] 3.44 10*6/uL Low 3.60-5.00 [facility] Comment on above: Performed By: #### P T, PTT #### [facility] [address] WBC (Bld) [#/Vol] 11.3 10*3/uL Normal 3.8-11.6 [facility] Comment on above: Performed By: #### P T, PTT #### [facility] [address] Creatinine [Mass/volume] in Serum or PlasmaOrdered By: Alexandra Cheney on 02-02-2025 Creatinine [Mass/Vol] Creatinine [Mass/v olume] in Serum or Plasma 0.60-1.20 [facility] Eosinophils Auto (Bld) [#/Vo l]Ordered By: Alexandra Cheney on 02-02-2025 Eosinophils (Bld) [#/Vol] Automated eosinophil count 0.0-0.45 [facility] Eosinophils/100 WBC Auto (Bl d)Ordered By: Alexandra Cheney on 02-02-2025 Eosinophils/100 WBC (Bld) Automated eosinophil % . [facility] Erythrocyte distribution wid th Auto (RBC) [Ratio]Ordered By: Alexandra Rodas on 02-02-2025 Erythrocyte distribution width (RBC) [Ratio] Erythrocyte distribution width [Ratio] by Automated count 11.9-15.3 [facility] Glucose Glucometer (BldC) [M ass/Vol]Ordered By: Alec Alvarez on 02-02-2025 Glucose [Mass/Vol] Capillary blood gluc ose measurement by glucometer (mass/volume) [facility] Comment on above: Random Glucose Refer ence Range is dependent on time and content of last meal. Glucose of more than 200 mg/dL in a nonstressed, ambulatory subject supports the diagnosis of Diabetes Mellitus. Glucose Poct Glucometerson 0 02-02-2025 Glucose [Mass/Vol] 343 mg/dL Normal [facility] Comment on above: Result Comment: [place] Glucose Reference Range is dependent on time and content of last meal. Glucose of more than 200 mg/dL in a nonstressed, ambulatory subject supports the diagnosis of Diabetes Mellitus. PERFORMED BY: [place] [address] PATHOLOGIST CLASS B DRIVER ROMAINE HENDERSON M.D. Performed By: #### P T, PTT #### [address] Glucose [Mass/Vol] 246 mg/dL Normal [facility] Comment on above: Result Comment: [place] om Glucose Reference Range is dependent on time and content of last meal. Glucose of more than 200 mg/dL in a nonstressed, ambulatory subject supports the diagnosis of Diabetes Mellitus. PERFORMED BY: [place] [address] PATHOLOGIST CLASS B DRIVER ROMAINE HENDERSON M.D. Performed By: #### G LULS #### Point of Care testing , Glucose [Mass/volume] in Ser um or PlasmaOrdered By: Alexandra Cheney on 02-02-2025 Glucose [Mass/Vol] Glucose [Mass/volume ] in Serum or Plasma High 70-100 [facility] Comment on above: ADA recommended refe rence rangeRandom Glucose Reference Range is dependent on time and content of last meal. Glucose of more than 200 mg/dL in a nonstressed, ambulatory subject supports the diagnosis of Diabetes Mellitus. Hematocrit Auto (Bld) [Volum e fraction]Ordered By: Alexandra Cheney on 02-02-2025 Hematocrit (Bld) [Volume fraction] Hematocrit [Volume Fraction] of Blood by Automated count 34.0-46.4 [facility] Hemoglobin [Mass/volume] in BloodOrdered By: Alexandra Cheney on 02-02-2025 Hemoglobin (Bld) [Mass/Vol] Hemoglobin [Mass/volume] in Blood Low 11.8-15.4 [facility] Leukocytes [#/volume] correc [place] for nucleated erythrocytes in Blood by Automated counOrdered By: Alexandra Cheney on 02-02-2025 WBC corrected for nucl RBC Auto (Bld) [#/Vol] Leukocytes [#/volume] corrected for nucleated erythrocytes in Blood by Automated coun 3.8-11.6 [facility] Lymphocytes Auto (Bld) [#/Vo l]Ordered By: Alexandra Cheney on 02-02-2025 Lymphocytes (Bld) [#/Vol] Lymphocytes [#/volume] in Blood by Automated count Low 1.00-4.8 [facility] Lymphocytes/100 WBC Auto (Bl d)Ordered By: Alexandra Cheney on 02-02-2025 Lymphocytes/100 WBC (Bld) Lymphocytes/100 leukocytes in Blood by Automated count . [facility] MCH Auto (RBC) [Entitic mass ]Ordered By: Alexandra Cheney on 02-02-2025 MCH (RBC) [Entitic mass] MCH [Entitic mass] by Automated count 24.7-34.3 [facility] MCHC Auto (RBC) [Mass/Vol]Or dered By: Alexandra Cheney on 02-02-2025 MCHC (RBC) [Mass/Vol] MCHC [Mass/volume] by Automated count 32.0-35.0 [facility] MCV Auto (RBC) [Entitic vol] Ordered By: Alexandra Cheney on 02-02-2025 MCV (RBC) [Entitic vol] MCV [Entitic volume] by Automated count 80-100 [facility] Monocytes Auto (Bld) [#/Vol] Ordered By: Alexandra Cheney on 02-02-2025 Monocytes (Bld) [#/Vol] Automated blood monocyte count 0.0-0.8 [facility] Monocytes/100 WBC Auto (Bld) Ordered By: Alexandra Cheney on 02-02-2025 Monocytes/100 WBC (Bld) Automated monocyte % . [facility] Neutrophils Auto (Bld) [#/Vo l]Ordered By: Alexandra Cheney on 02-02-2025 Neutrophils (Bld) [#/Vol] Neutrophils [#/volume] in Blood by Automated count High 1.8-7.7 [facility] Neutrophils/100 WBC Auto (Bl d)Ordered By: Alexandra Cheney on 02-02-2025 Neutrophils/100 WBC (Bld) Automated neutrophil % . [facility] No Panel InformationOrdered By: Alexandra Cheney on 02-02-2025 Estimated GFR (CKD-EPI) > 60.0 mL/Min [facility] Creatinine Clearance (Chem 47.25 [facility] Nucleated erythrocytes [Pres ence] in Blood by Automated countOrdered By: Alexandra Cheney on 02-02-2025 Nucleated RBC Auto Ql (Bld) Nucleated erythrocytes [Presence] in Blood by Automated count 0-0.5 [facility] Platelet mean volume Auto (B ld) [Entitic vol]Ordered By: Alexandra Cheney on 02-02-2025 Platelet mean volume (Bld) [Entitic vol] Platelet mean volume [Entitic volume] in Blood by Automated count 6.3-10.7 [facility] Platelets Auto (Bld) [#/Vol] Ordered By: Alexandra Cheney on 02-02-2025 Platelets (Bld) [#/Vol] Platelets [#/volume] in Blood by Automated count 150-450 [facility] Potassium [Moles/volume] in Serum or PlasmaOrdered By: Alexandra Cheney on 02-02-2025 Potassium [Moles/Vol] Potassium [Moles/v olume] in Serum or Plasma 3.5-5.1 [facility] RBC Auto (Bld) [#/Vol]Ordere d By: Alexandra Cheney on 02-02-2025 RBC (Bld) [#/Vol] Erythrocytes [#/volu me] in Blood by Automated count Low 3.60-5.00 [facility] Serum or plasma anion gap de terminationOrdered By: Alexandra Cheney on 02-02-2025 Anion gap [Moles/Vol] Serum or plasma an ion gap determination 6.0-15.0 [facility] Sodium [Moles/volume] in Ser um or PlasmaOrdered By: Alexandra Cheney on 02-02-2025 Sodium [Moles/Vol] Sodium [Moles/volume ] in Serum or Plasma Low 136-145 [facility] Urea nitrogen [Mass/volume] in Serum or PlasmaOrdered By: Alexandra Cheney on 02-02-2025 Urea nitrogen [Mass/Vol] Urea nitrogen [Mass/volume] in Serum or Plasma High 7-25 [facility] WBC Auto (Bld) [#/Vol]Ordere d By: Alexandra Cheney on 02-02-2025 WBC (Bld) [#/Vol] Leukocytes [#/volume ] in Blood by Automated count 3.8-11.6 [facility] Appearance of UrineOrdered B y: Alexandra Cheney on 02-01-2025 Appearance (U) Urine appearance Abnormal Clear [facility] Bacteria [Presence] in Urine by AutomatedOrdered By: Alexandra Cheney on 02-01-2025 Bacteria Auto Ql (U) Bacteria [Presence] in Urine by Automated High None Seen [facility] Basic Metabolic Panelon 01-20 Anion gap [Moles/Vol] 11.5 mmol/L Normal 6.0-15.0 [facility] Comment on above: Performed By: #### P T, PTT #### [facility] [address] [place] [id number] [place] Calcium [Mass/Vol] 9.1 mg/dL Normal 8.6-10.3 [facility] Comment on above: Performed By: #### P T, PTT #### [facility] [address] [place] [address] [place] Chloride [Moles/Vol] 96 mmol/L Low 98-107 [facility] Comment on above: Performed By: #### P T, PTT #### [address] CO2 [Moles/Vol] 26.5 mmol/L Normal 21.0-31.0 [facility] Comment on above: Performed By: #### P T, PTT #### [address] Creatinine [Mass/Vol] 1.12 mg/dL Normal 0.60-1.20 [facility] Comment on above: Performed By: #### P T, PTT #### [place] [address] [place] Creatinine Clr Calc Pharmacy 34.59 Normal [facility] Comment on above: Result Comment: PERF ORMED BY: [place] [address] PATHOLOGIST CLASS B DRIVER ROMAINE HENDERSON M.D. Performed By: #### P T, PTT #### [address] Estimated GFR 49.710 mL/Min Normal [facility] Comment on above: Performed By: #### P T, PTT #### [address] Glucose [Mass/Vol] 268 mg/dL High 70-100 [facility] Comment on above: Result Comment: [place] Glucose Reference Range is dependent on time and content of last meal. Glucose of more than 200 mg/dL in a nonstressed, ambulatory subject supports the diagnosis of Diabetes Mellitus. ADA recommended reference range Performed By: #### P T, PTT #### [address] Potassium [Moles/Vol] 4.0 mmol/L Normal 3.5-5.1 [facility] Comment on above: Performed By: #### P T, PTT #### [place] [address] [place] Sodium [Moles/Vol] 130 mmol/L Low 136-145 [facility] Comment on above: Performed By: #### P T, PTT #### [address] Urea nitrogen [Mass/Vol] 47 mg/dL High 7-25 [facility] Comment on above: Performed By: #### P T, PTT #### [address] Bilirubin Test strip Ql (U)O rdered By: Alexandra Cheney on 02-01-2025 Bilirubin Ql (U) Bilirubin.total [Presence] in Urine by Test strip Negative [facility] Color Auto (U)Ordered By: Neeru Cheney on 02-01-2025 Color (U) Color of Urine by Auto Yellow [facility] Complete Blood Count Auto Di ffon 02-01-2025 Basophils (Bld) [#/Vol] 0.1 10*3/uL Normal 0.0-0.2 [facility] Comment on above: Result Comment: PERF ORMED BY: [place] [address] PATHOLOGIST CLASS B DRIVER ROMAINE HENDERSON M.D. Performed By: #### P T, PTT #### [address] Basophils/100 WBC (Bld) 1.0 % Normal . [facility] Comment on above: Performed By: #### P T, PTT #### [address] Eosinophils (Bld) [#/Vol] 0.1 10*3/uL Normal 0.0-0.45 [facility] Comment on above: Performed By: #### P T, PTT #### [place] [address] [place] Eosinophils/100 WBC (Bld) 0.7 % Normal . [facility] Comment on above: Performed By: #### P T, PTT #### [address] Erythrocyte distribution width (RBC) [Ratio] 13.4 % Normal 11.9-15.3 [facility] Comment on above: Performed By: #### P T, PTT #### [address] Hematocrit (Bld) [Volume fraction] 39.1 % Normal 34.0-46.4 [facility] Comment on above: Performed By: #### P T, PTT #### [address] Hemoglobin (Bld) [Mass/Vol] 13.4 g/dL Normal 11.8-15.4 [facility] Comment on above: Performed By: #### P T, PTT #### [address] Lymphocytes (Bld) [#/Vol] 0.6 10*3/uL Low 1.00-4.8 [facility] Comment on above: Performed By: #### P T, PTT #### [address] Lymphocytes/100 WBC (Bld) 4.2 % Normal . [facility] Comment on above: Performed By: #### P T, PTT #### [address] MCH (RBC) [Entitic mass] 34.4 pg High 24.7-34.3 [facility] Comment on above: Performed By: #### P T, PTT #### [address] MCV (RBC) [Entitic vol] 100.5 fL High 80-100 [facility] Comment on above: Performed By: #### P T, PTT #### [address] Mean Corpuscular HGB Conc 34.2 g/dL Normal 32.0-35.0 [facility] Comment on above: Performed By: #### P T, PTT #### [address] Monocytes (Bld) [#/Vol] 0.9 10*3/uL High 0.0-0.8 [facility] Comment on above: Performed By: #### P T, PTT #### [facility] [address] [place] [address] [place] Monocytes/100 WBC (Bld) 6.3 % Normal . [facility] Comment on above: Performed By: #### P T, PTT #### [facility] [address] [place] [address] [place] Neutrophils (Bld) [#/Vol] 12.0 10*3/uL High 1.8-7.7 [facility] Comment on above: Performed By: #### P T, PTT #### [facility] [address] [place] [address] [place] Neutrophils/100 WBC (Bld) 87.8 % Normal . [facility] Comment on above: Performed By: #### P T, PTT #### [facility] [address] [place] [address] [place] NRBC% 0.0 /100{WBC} Normal 0-0.5 [facility] Comment on above: Performed By: #### P T, PTT #### [facility] [address] [place] [address] [place] Platelet mean volume (Bld) [Entitic vol] 8.9 fL Normal 6.3-10.7 [facility] Comment on above: Performed By: #### P T, PTT #### [facility] [address] [place] [address] [place] Platelets (Bld) [#/Vol] 191 10*3/uL Normal 150-450 [facility] Comment on above: Performed By: #### P T, PTT #### [facility] [address] [place] [address] [place] RBC (Bld) [#/Vol] 3.89 10*6/uL Normal 3.60-5.00 [facility] Comment on above: Performed By: #### P T, PTT #### [facility] [address] [place] [address] [place] WBC (Bld) [#/Vol] 13.6 10*3/uL High 3.8-11.6 [facility] Comment on above: Performed By: #### P T, PTT #### [place] [address] [place] Dipstick and Microscopicon 0 02-01-2025 Appearance (U) Cloudy Critically abnormal Clear [facility] Comment on above: Order Comment: Name Collection Type:: Baldwin Catheter Performed By: #### A DDONUAPLUS #### [place] [address] [place] Bacteria,Urine 3+ High None Seen [facility] Comment on above: Order Comment: Name Collection Type:: Baldwin Catheter Performed By: #### A DDONUAPLUS #### [place] [address] [place] Bilirubin,Urine Negative Normal Negative [facility] Comment on above: Order Comment: Name Collection Type:: Baldwin Catheter Performed By: #### A DDONUAPLUS #### [place] [address] [place] Color (U) Yellow Normal Yellow [facility] Comment on above: Order Comment: Name Collection Type:: Baldwin Catheter Performed By: #### A DDONUAPLUS #### [place] [address] [place] Glucose Ql (U) 1000 mg/dL High Normal [facility] Comment on above: Order Comment: Name Collection Type:: Baldwin Catheter Performed By: #### A DDONUAPLUS #### [place] [address] [place] Hyaline Casts,Urine 9-19 High 0-8 [facility] Comment on above: Order Comment: Name Collection Type:: Baldwin Catheter Performed By: #### A DDONUAPLUS #### [place] [address] [place] Ketones Ql (U) 1+ High Negative [facility] Comment on above: Order Comment: Name Collection Type:: Baldwin Catheter Performed By: #### A DDONUAPLUS #### [place] [address] [place] Leukocyte esterase Test strip Ql (U) 1+ High Negative [facility] Comment on above: Order Comment: Name Collection Type:: Baldwin Catheter Performed By: #### A DDONUAPLUS #### [place] [address] [place] Mucus,Urine 4+ Critically abnormal [facility] Comment on above: Order Comment: Name Collection Type:: Baldwin Catheter Result Comment: PERF ORMED BY: [place] [address] PATHOLOGIST CLASS B DRIVER ROMAINE HENDERSON M.D. Performed By: #### A DDONUAPLUS #### [place] [address] [place] Nitrite,Urine Negative Normal Negative [facility] Comment on above: Order Comment: Name Collection Type:: Baldwin Catheter Performed By: #### A DDONUAPLUS #### [address] Occult Blood,Urine Negative Normal Negative [facility] Comment on above: Order Comment: Name Collection Type:: Baldwin Catheter Result Comment: PERF ORMED BY: [place] [address] PATHOLOGIST CLASS B DRIVER ROMAINE HENDERSON M.D. Performed By: #### A DDONUAPLUS #### [address] pH (U) 5.0 [pH] Normal 5.0-9.0 [facility] Comment on above: Order Comment: Name Collection Type:: Baldwin Catheter Performed By: #### A DDONUAPLUS #### [address] Protein (U) [Mass/Vol] 20 mg/dL High Negative [facility] Comment on above: Order Comment: Name Collection Type:: Baldwin Catheter Performed By: #### A DDONUAPLUS #### [address] RBC,Urine 1-2 Normal 0-4 [facility] Comment on above: Order Comment: Name Collection Type:: Baldiwn Catheter Performed By: #### A DDONUAPLUS #### [facility] [address] Specificy [place],Urine 1.018 Normal 1.001-1.03 0 [facility] Comment on above: Order Comment: Name Collection Type:: Baldwin Catheter Performed By: #### A DDONUAPLUS #### [facility] [address] [address] Squamous Epithelial Cell,Urine 1-2 Normal 0-2 [facility] Comment on above: Order Comment: Name Collection Type:: Baldwin Catheter Performed By: #### A DDONUAPLUS #### [facility] [address] Urobilinogen,Urine Normal Normal Normal [facility] Comment on above: Order Comment: Name Collection Type:: Baldwin Catheter Performed By: #### A DDONUAPLUS #### [address] WBC CLUMP, Urine Few High None Seen [facility] Comment on above: Order Comment: Name Collection Type:: Baldwin Catheter Performed By: #### A DDONUAPLUS #### [facility] 1[address] [place] [address] [place] WBC,Urine 3-4 Normal 0-4 [facility] Comment on above: Order Comment: Name Collection Type:: Baldwin Catheter Performed By: #### A DDONUAPLUS #### [facility] [address] [place] [address] Epithelial cells.squamous [# /area] in Urine sediment by Automated countOrdered By: Alexandra Cheney on 02-01-2025 Epithelial cells.squamous Auto (Urine sed) [#/Area] Epithelial cells.squamous [#/area] in Urine sediment by Automated count 0-2 [facility] Erythrocytes [#/area] in Uri ne sediment by Automated countOrdered By: Alexandra Cheney on 02-01-2025 RBC Auto (Urine sed) [#/Area] Erythrocytes [#/area] in Urine sediment by Automated count 0-4 [facility] FL guided kyphoplastyon 01-20 FL guided kyphoplasty [facility] Main [address] [address] Fluoroscopy Report Signed Patient: Fatuma Fair MR#: [id number] : 1945 Acct:[id number] Age/Sex: 80 / F ADM Date: 01/29/25 Loc: 4N Room: [address] [place] [address] Type: ADM IN Attending Dr: Alec Alvarez MD Copies to: DO Alec Luna MD Ordering Provider: Donell Rosenbaum DO Date of Service: 02/01/25 FL/FL guided kyphoplasty: . Intraoperative study. Reason for exam: T12 kyphoplasty Findings: 6 images were obtained intraoperatively. Kyphoplasty changes are seen. Cumulative Air Kerma in mGy: 33 mGy FL/FL guided kyphoplasty Impression: Intraoperative study. Impression dictated by: Rick Smith Jr., DRossORoss02/01/2025 1:35 PM Dictation Location: [place] [address] Transcribed By: [facility] 02/01/25 1335 Dictated By: Rick Smith Jr, DO 02/01/25 1334 Signed By: 02/01/25 1335 Normal [facility] Fluoroscopy reportOrdered By : Rick Smith on 02-01-2025 RF Unspecified body region Views [address] [address] Fluoroscopy Report Signed Patient: Fatuma Fair MR#: [id number] : 1945 Acct:[id number] Age/Sex: 80 / F ADM Date: 5 Loc: 4N Room: [address] [place] [address] Type: ADM IN Attending Dr: Alec Alvarez MD Copies to: DO Alec Luna MD~ Ordering Provider: Donell Rosenbaum DO Date of Service: 02/01/25 FL/FL guided kyphoplasty: . Intraoperative study. Reason for exam: T12 kyphoplasty Findings: 6 images were obtained intraoperatively. Kyphoplasty changes are seen. Cumulative Air Kerma in mGy: 33 mGy FL/FL guided kyphoplasty Impression: Intraoperative study. Impression dictated by: Rick Smith Jr., Antoinette02/01/2025 1:35 PM Dictation Location: [place] [address] Transcribed By: [facility] 02/01/25 133 Dictated By: Rick Smith Jr, DO 02/01/25 1334 Signed By: 02/01/25 1335 [facility] Glucose Poct Glucometerson 0 02-01-2025 Glucose [Mass/Vol] 395 mg/dL Normal [facility] Comment on above: Result Comment: [place] Glucose Reference Range is dependent on time and content of last meal. Glucose of more than 200 mg/dL in a nonstressed, ambulatory subject supports the diagnosis of Diabetes Mellitus. PERFORMED BY: [place] [address] PATHOLOGIST CLASS B DRIVER ROMAINE HENDERSON M.D. Performed By: #### C UU #### [address] Glucose [Mass/Vol] 276 mg/dL Normal [facility] Comment on above: Result Comment: [facility] Glucose Reference Range is dependent on time and content of last meal. Glucose of more than 200 mg/dL in a nonstressed, ambulatory subject supports the diagnosis of Diabetes Mellitus. PERFORMED BY: [place] [address] PATHOLOGIST CLASS B DRIVER ROMAINE HENDERSON M.D. Performed By: #### G LULS #### Point of Care testing , Glucose [Mass/Vol] 224 mg/dL Normal [facility] Comment on above: Result Comment: [facility] Glucose Reference Range is dependent on time and content of last meal. Glucose of more than 200 mg/dL in a nonstressed, ambulatory subject supports the diagnosis of Diabetes Mellitus. PERFORMED BY: [place] [address] PATHOLOGIST CLASS B DRIVER ROMAINE HENDERSON M.D. Performed By: #### G LULS #### Point of Care testing , Glucose [Mass/Vol] 225 mg/dL Normal [facility] Comment on above: Result Comment: [place] om Glucose Reference Range is dependent on time and content of last meal. Glucose of more than 200 mg/dL in a nonstressed, ambulatory subject supports the diagnosis of Diabetes Mellitus. PERFORMED BY: [place] [address] PATHOLOGIST CLASS B DRIVER ROMAINE HENDERSON M.D. Performed By: #### P T, PTT #### [facility] [address] [place] [address] Commemt1 Glu2: Cleaned Meter Normal [facility] Comment on above: Result Comment: PERF ORMED BY: [place] [address] PATHOLOGIST CLASS B DRIVER ROMAINE HENDERSON M.D. Performed By: #### G LULS #### Point of Care testing , Glucose [Mass/Vol] 239 mg/dL Normal [facility] Comment on above: Result Comment: [place] om Glucose Reference Range is dependent on time and content of last meal. Glucose of more than 200 mg/dL in a nonstressed, ambulatory subject supports the diagnosis of Diabetes Mellitus. Performed By: #### G LULS #### Point of Care testing , Glucose [Mass/Vol] 319 mg/dL Normal [facility] Comment on above: Result Comment: [place] om Glucose Reference Range is dependent on time and content of last meal. Glucose of more than 200 mg/dL in a nonstressed, ambulatory subject supports the diagnosis of Diabetes Mellitus. PERFORMED BY: [place] [address] PATHOLOGIST CLASS B DRIVER ROMAINE HENDERSON M.D. Performed By: #### P T, PTT #### [place] [id number] [facility] Glucose [Mass/volume] in Uri ne by Test stripOrdered By: Alexandra Cheney on 02-01-2025 Glucose Test strip (U) [Mass/Vol] Glucose [Mass/volume] in Urine by Test strip High Normal [facility] Hemoglobin Test strip Ql (U) Ordered By: Alexandra Cheney on 02-01-2025 Hemoglobin Ql (U) Hemoglobin [Presence ] in Urine by Test strip Negative [facility] Hyaline casts [#/area] in Ur ine sediment by Automated countOrdered By: Alexandra Cheney on 02-01-2025 Hyaline casts Auto (Urine sed) [#/Area] Hyaline casts [#/area] in Urine sediment by Automated count High 0-8 [facility] INR in Platelet poor plasma by Coagulation assayOrdered By: Donell Rosenbaum on 02-01-2025 INR Coag (PPP) [Relative time] INR in Platelet poor plasma by Coagulation assay [facility] Comment on above: INR Therapeutic [...] [Presence] i n Urine by Test strip [facility] Negative [facility] Leukocyte clumps [Presence] in Urine by AutomatedOrdered By: Alexandra Rodas on 02-01-2025 Leukocyte clumps Auto Ql (U) Leukocyte clumps [Presence] in Urine by Automated High None Seen [facility] Leukocyte esterase [Presence ] in Urine by Test stripOrdered By: Alexandra Rodas on 02-01-2025 Leukocyte esterase Test strip Ql (U) Leukocyte esterase [Presence] in Urine by Test strip [facility] Negative [facility] Leukocytes [#/area] in Urine sediment by Automated countOrdered By: Alexandra Cheney on 02-01-2025 WBC Auto (Urine sed) [#/Area] Leukocytes [#/area] in Urine sediment by Automated count 0-4 [facility] Mucus [Presence] in Urine by AutomatedOrdered By: Alexandra Cheney on 02-01-2025 Mucus Auto Ql (U) Mucus [Presence] in Urine by Automated Abnormal [facility] Nitrite Test strip Ql (U)Ord ered By: Alexandra EdnaReddy on 02-01-2025 Nitrite Ql (U) Nitrite [Presence] i n Urine by Test strip Negative [facility] No Panel InformationOrdered By: Alec Alvarez on 02-01-2025 Bedside Glucose Comment Glu2: cleaned meter [facility] Partial Thromboplastin Timeo n 02-01-2025 aPTT Coag (Bld) [Time] 23.5 s Low 25.1-36.5 [facility] Comment on above: Order Comment: REDRA W, PREVIOUS SAMPLE OVERFILLED Result Comment: A he matocrit value greater than 55% may lead to inaccurate results in coagulation testing. Patients having hematocrit values >55% require a special collection tube for coagulation studies. Please contact the laboratory at [phone] for redraw instructions. PERFORMED BY: [place] [address] PATHOLOGIST CLASS B DRIVER ROMAINE HENDERSON M.D. Performed By: #### P T, PTT #### [address] Protein Test strip (U) [Mass /Vol]Ordered By: Alexandra Cheney on 02-01-2025 Protein (U) [Mass/Vol] Protein [Mass/vol ume] in Urine by Test strip High Negative [facility] Prothrombin Time INRon 02-01 INR Coag (PPP) [Relative time] 1.2 {INR} Normal [facility] Comment on above: Order Comment: [...] Performed By: #### P T, PTT #### [facility] [address] [place] [address] [facility] PT Coag (PPP) [Time] 13.4 s High 9.0-12.9 [facility] Comment on above: Order Comment: REDRA W, PREVIOUS SAMPLE OVERFILLED Result Comment: A he matocrit value greater than 55% may lead to inaccurate results in coagulation testing. Patients having hematocrit values >55% require a special collection tube for coagulation studies. Please contact the laboratory at [phone] for redraw instructions. Performed By: #### P T, PTT #### [facility] [address] [place] [address] [facility] Prothrombin time (PT)Ordered By: Donell Rosenbaum on 02-01-2025 PT Coag (PPP) [Time] Prothrombin time (PT) High 9.0- 12.9 [facility] Comment on above: A hematocrit value g reater than 55% may lead to inaccurate results in coagulation testing. Patients having hematocrit values >55% require a special collection tube for coagulation studies. Please contact the laboratory at [phone] for redraw instructions. Specific gravity Test strip (U) [Rel density]Ordered By: Alexandra Cheney on 02-01-2025 Specific gravity (U) [Rel density] Specific gravity of Urine by Test strip 1.001-1.03 0 [facility] Urobilinogen Test strip (U) [Mass/Vol]Ordered By: Alexandra Cheney on 02-01-2025 Urobilinogen (U) [Mass/Vol] Urobilinogen [Mass/volume] in Urine by Test strip Normal [facility] aPTT in Platelet poor plasma by Coagulation assayOrdered By: Donell Rosenbaum on 02-01-2025 aPTT Coag (PPP) [Time] Activated partial thromboplastin time (aPTT) in platelet poor plasma by coagulation a Low 25.1-36.5 [facility] Comment on above: A hematocrit value g reater than 55% may lead to inaccurate results in coagulation testing. Patients having hematocrit values >55% require a special collection tube for coagulation studies. Please contact the laboratory at [phone] for redraw instructions. pH Test strip (U)Ordered By: Alexandra Cheney on 02-01-2025 pH (U) pH of Urine by Test strip 5.0-9.0 [facility] ECG 12 lead ECGon 01-31-2025 ECG 12 lead ECG [facility] Main [place] [id number] Electrocardiograph Report Signed Patient: Fatuma Fair MR#: [id number] : 1945 Acct:[id number] Age/Sex: 80 / F ADM Date: 01/29/25 Loc: 4N Room: [address] [place] [address] Type: ADM IN Attending Dr: Alec Alvarez MD Ordering Provider: Alexandra Cheney [employer] Date of Service: 01/31/2511/15/1311 ECG/ECG 12 lead [...] ) Abnormal ECG Confirmed by Saida Ziegler ([id number]) on 01/31/2025 2:36:50 PM Referred By: Electronically Signed By: Saida Ziegler Transcribed By: MUS Signed By Saida Ziegler MD 5 1436 Normal [facility] ECH echo transthoracicon ECH echo transthoracic [facility] Main [place] [id number] Echocardiogram Signed Patient: Fatuma Fair MR#: [id number] : 1945 Acct:[id number] Age/Sex: 80 / F ADM Date: 01/29/25 Loc: 4N Room: [address] [place] [address] Type: ADM IN Attending Dr: Alec Alvarez MD Ordering Provider: Alexandra Eliazar FROYLAN Cheney Date of Service: 01/31/2511/15/1311 ECH/ECH echo transthoracic: preop, afib Copies to: MD Alexandra Do FROYLAN Cheney PM Patient Location: : 1945 Gender: Female [...] signed by: Elkin : : : : Lililana : : : : on: 01/31/2025, : : : : 5:00 PM : + --+ + Transcribed By: SCV Performed At: 01/31/25 1359 Signed By: Elkin Tijerina MD 01/31/25 1700 Normal [facility] Glucose Poct Glucometerson 0 01-31-2025 Glucose [Mass/Vol] 352 mg/dL Normal [facility] Comment on above: Result Comment: [place] Glucose Reference Range is dependent on time and content of last meal. Glucose of more than 200 mg/dL in a nonstressed, ambulatory subject supports the diagnosis of Diabetes Mellitus. PERFORMED BY: [facility] [place] [address] PATHOLOGIST CLASS B DRIVER ROMAINE HENDERSON M.D. Performed By: #### P T, PTT #### [address] Glucose [Mass/Vol] 314 mg/dL Normal [facility] Comment on above: Result Comment: [place] om Glucose Reference Range is dependent on time and content of last meal. Glucose of more than 200 mg/dL in a nonstressed, ambulatory subject supports the diagnosis of Diabetes Mellitus. PERFORMED BY: [place] [address] PATHOLOGIST CLASS B DRIVER ROMAINE HENDERSON M.D. Performed By: #### P T, PTT #### [address] Glucose [Mass/Vol] 288 mg/dL Normal [facility] Comment on above: Result Comment: [place] om Glucose Reference Range is dependent on time and content of last meal. Glucose of more than 200 mg/dL in a nonstressed, ambulatory subject supports the diagnosis of Diabetes Mellitus. PERFORMED BY: [place] [address] PATHOLOGIST CLASS B DRIVER ROMAINE HENDERSON M.D. Performed By: #### P T, PTT #### [address] Glucose [Mass/Vol] 325 mg/dL Normal [facility] Comment on above: Result Comment: [place] om Glucose Reference Range is dependent on time and content of last meal. Glucose of more than 200 mg/dL in a nonstressed, ambulatory subject supports the diagnosis of Diabetes Mellitus. PERFORMED BY: [place] [address] PATHOLOGIST CLASS B DRIVER ROMAINE HENDERSON M.D. Performed By: #### G LULS #### Point of Care testing , Glucose [Mass/Vol] 325 mg/dL Normal [facility] Comment on above: Result Comment: [place] om Glucose Reference Range is dependent on time and content of last meal. Glucose of more than 200 mg/dL in a nonstressed, ambulatory subject supports the diagnosis of Diabetes Mellitus. PERFORMED BY: [place] [id number] PATHOLOGIST CLASS B DRIVER ROMAINE HENDERSON M.D. Performed By: #### G LULS #### Point of Care testing , Partial Thromboplastin Timeo n 01-31-2025 aPTT Coag (Bld) [Time] 24.9 s Low 25.1-36.5 [facility] Comment on above: Result Comment: A he matocrit value greater than 55% may lead to inaccurate results in coagulation testing. Patients having hematocrit values >55% require a special collection tube for coagulation studies. Please contact the laboratory at [phone] for redraw instructions. PERFORMED BY: [place] [address] PATHOLOGIST CLASS B DRIVER ROMAINE HENDERSON M.D. Performed By: #### P T, PTT #### [address] Prothrombin Time INRon 01-31 INR Coag (PPP) [Relative time] 1.4 {INR} Normal [facility] Comment on above: Result Comment: [...] Performed By: #### P T, PTT #### [address] PT Coag (PPP) [Time] 15.5 s High 9.0-12.9 [facility] Comment on above: Result Comment: A he matocrit value greater than 55% may lead to inaccurate results in coagulation testing. Patients having hematocrit values >55% require a special collection tube for coagulation studies. Please contact the laboratory at [phone] for redraw instructions. Performed By: #### P T, PTT #### [place] [id number] [facility] X-ray reportOrdered By: Brody Alex on 01-31-2025 Study report [facility] Main [place] [id number] XRay Report Signed Patient: Fatuma Fair MR#: [id number] : 1945 Acct:[id number] Age/Sex: 80 / F ADM Date: 5 Loc: 4N Room: [address] [place] [address] Type: ADM IN Attending Dr: Alec Alvarez [...] Devin Alex M.D.01/31/2025 2:41 PM Dictation Location: [place] [address] Transcribed By: [facility] 01/31/25 1441 Dictated By: Devin Alex MD 01/31/25 1440 Signed By: 01/31/25 [facility] Work Phone: XR chest 1V portableon 01-31 XR chest 1V portable [facility] Main [place] [id number] XRay Report Signed Patient: Fatuma Fair MR#: [id number] : 1945 Acct:[id number] Age/Sex: 80 / F ADM Date: 01/29/25 Loc: 4N Room: [address] [place] [address] Type: ADM IN Attending Dr: Alec Alvarez [...] Devin Alex M.D.01/31/2025 2:41 PM Dictation Location: [facility]-- Transcribed By: [facility] 01/31/25 1441 Dictated By: Devin Alex MD 01/31/25 1440 Signed By: 01/31/25 1441 Normal [facility] Glucose Poct Glucometerson 0 01-30-2025 Glucose [Mass/Vol] 328 mg/dL Normal [facility] Comment on above: Result Comment: [facility] Glucose Reference Range is dependent on time and content of last meal. Glucose of more than 200 mg/dL in a nonstressed, ambulatory subject supports the diagnosis of Diabetes Mellitus. PERFORMED BY: [address] [address] PATHOLOGIST CLASS B DRIVER ROMAINE HENDERSON M.D. Performed By: #### G LULS #### Point of Care testing , Glucose [Mass/Vol] 313 mg/dL Normal [facility] Comment on above: Result Comment: [facility] Glucose Reference Range is dependent on time and content of last meal. Glucose of more than 200 mg/dL in a nonstressed, ambulatory subject supports the diagnosis of Diabetes Mellitus. PERFORMED BY: [facility] [address] [facility] [place] [address] PATHOLOGIST CLASS B DRIVER ROMAINE HENDERSON M.D. Performed By: #### G LULS #### Point of Care testing , Glucose [Mass/Vol] 326 mg/dL Normal [facility] Comment on above: Result Comment: [facility] Glucose Reference Range is dependent on time and content of last meal. Glucose of more than 200 mg/dL in a nonstressed, ambulatory subject supports the diagnosis of Diabetes Mellitus. PERFORMED BY: [place] [address] PATHOLOGIST CLASS B DRIVER ROMAINE HENDERSON M.D. Performed By: #### P T, PTT #### [address] Glucose [Mass/Vol] 249 mg/dL Normal [facility] Comment on above: Result Comment: [facility] Glucose Reference Range is dependent on time and content of last meal. Glucose of more than 200 mg/dL in a nonstressed, ambulatory subject supports the diagnosis of Diabetes Mellitus. PERFORMED BY: [place] [address] PATHOLOGIST CLASS B DRIVER ROMAINE HENDERSON M.D. Performed By: #### G LULS #### Point of Care testing , X-ray reportOrdered By: Ba Pinto on 01-30-2025 Study report [facility] Main [facility] [place] [address] [place] [address] XRay Report Signed Patient: Fatuma Fair MR#: [id number] : 1945 Acct:[id number] Age/Sex: 80 / F ADM Date: 5 Loc: Room: 7C9940-7 Type: ADM IN Attending Dr: Alec Alvarez [...] Garrett Pinto M.D.01/30/2025 4:19 PM Dictation Location: [place] [address] Transcribed By: [facility] 01/30/25 1619 Dictated By: Garrett Pinto DO 01/30/25 1554 Signed By: 01/30/25 1619 [facility] XR lumbar spine 2-3V*on 01-20 XR lumbar spine 2-3V* [facility] [place] [address] XRay Report Signed Patient: Fatuma Fair MR#: [id number] : 1945 Acct:[id number] Age/Sex: 80 / F ADM Date: 01/29/25 Loc: Room: [address] [place] [address] Type: ADM IN Attending Dr: Alec Alvarez [...] Garrett Pinto M.D.01/30/2025 4:19 PM Dictation Location: [place] [address] Transcribed By: [facility] 01/30/25 1619 Dictated By: Garrett Pinto DO 01/30/25 1554 Signed By: 01/30/25 1619 Normal [facility] A1C with Estimated Average Genesis cabrera 01-29-2025 Glucose [Mass/Vol] 203 mg/dL Normal [facility] Comment on above: Result Comment: PERF ORMED BY: [facility] [address] [place] [address] PATHOLOGIST CLASS B DRIVER ROMAINE HENDERSON M.D. Performed By: #### G LULS #### Point of Care testing , HbA1c (Bld) [Mass fraction] 8.7 % High 4.3-5.6 [facility] Comment on above: Result Comment: Incr eased risk for diabetes: 5.7 - 6.4 diabetes: >6.4 glycemic control for adults with diabetes: <7.0 Performed By: #### G LULS #### Point of Care testing , Basic Metabolic Panel 01-20 Anion gap [Moles/Vol] 11.7 mmol/L Normal 6.0-15.0 [facility] Comment on above: Performed By: #### G LULS #### Point of Care testing , Calcium [Mass/Vol] 9.1 mg/dL Normal 8.6-10.3 [facility] Comment on above: Performed By: #### G LULS #### Point of Care testing , Chloride [Moles/Vol] 100 mmol/L Normal 98-107 [facility] Comment on above: Performed By: #### G LULS #### Point of Care testing , CO2 [Moles/Vol] 25.4 mmol/L Normal 21.0-31.0 [facility] Comment on above: Performed By: #### G LULS #### Point of Care testing , Creatinine [Mass/Vol] 0.78 mg/dL Normal 0.60-1.20 [facility] Comment on above: Performed By: #### G LULS #### Point of Care testing , Creatinine Clr Calc Pharmacy 48.43 Normal [facility] Comment on above: Performed By: #### G LULS #### Point of Care testing , GFR/1.73 sq M.predicted MDRD (S/P/Bld) [Vol rate/Area] mL/min/{1.73_m2} Normal [facility] Comment on above: Performed By: #### G LULS #### Point of Care testing , Glucose [Mass/Vol] 263 mg/dL High 70-100 [facility] Comment on above: Result Comment: [place] Glucose Reference Range is dependent on time and content of last meal. Glucose of more than 200 mg/dL in a nonstressed, ambulatory subject supports the diagnosis of Diabetes Mellitus. ADA recommended reference range Performed By: #### G LULS #### Point of Care testing , Potassium [Moles/Vol] 4.1 mmol/L Normal 3.5-5.1 [facility] Comment on above: Performed By: #### G LULS #### Point of Care testing , Sodium [Moles/Vol] 133 mmol/L Low 136-145 [facility] Comment on above: Performed By: #### G LULS #### Point of Care testing , Urea nitrogen [Mass/Vol] 31 mg/dL High 7-25 [facility] Comment on above: Performed By: #### G LULS #### Point of Care testing , Basophils Auto (Bld) [#/Vol] Ordered By: Tiffany Guy on 01-29-2025 Basophils (Bld) [#/Vol] Automated basophil count 0.0-0.2 [facility] Basophils/100 WBC Auto (Bld) Ordered By: Tiffany Guy on 01-29-2025 Basophils/100 WBC (Bld) Automated basophil % . [facility] Blood estimated average gluc ose determination by estimation from glycated hemoglobinOrdered By: Tiffany Guy on 01-29-2025 Average glucose Estimated from glycated hemoglobin (Bld) [Mass/Vol] Glucose mean value [Mass/volume] in Blood Estimated from glycated hemoglobin [facility] Calcium [Mass/volume] in Ser um or PlasmaOrdered By: Tiffany Guy on 01-29-2025 Calcium [Mass/Vol] Calcium [Mass/volume ] in Serum or Plasma 8.6-10.3 [facility] Carbon dioxide, total [Moles /volume] in Serum or PlasmaOrdered By: Tiffany Guy on 01-29-2025 CO2 [Moles/Vol] Carbon dioxide, tota l [Moles/volume] in Serum or Plasma 21.0-31.0 [facility] Chloride [Moles/volume] in S patricia or PlasmaOrdered By: Tiffany Guy on 01-29-2025 Chloride [Moles/Vol] Chloride [Moles/vol ume] in Serum or Plasma 98-107 [facility] Complete Blood Count Auto Di ffon 01-29-2025 Basophils (Bld) [#/Vol] 0.0 10*3/uL Normal 0.0-0.2 [facility] Comment on above: Result Comment: PERF ORMED BY: [place] [address] PATHOLOGIST CLASS B DRIVER ROMAINE HENDERSON M.D. Performed By: #### C UU #### [address] Basophils/100 WBC (Bld) 0.2 % Normal . [facility] Comment on above: Performed By: #### C UU #### [place] [address] [place] Eosinophils (Bld) [#/Vol] 0.0 10*3/uL Normal 0.0-0.45 [facility] Comment on above: Performed By: #### C UU #### [address] Eosinophils/100 WBC (Bld) 0.3 % Normal . [facility] Comment on above: Performed By: #### C UU #### [address] Erythrocyte distribution width (RBC) [Ratio] 13.1 % Normal 11.9-15.3 [facility] Comment on above: Performed By: #### C UU #### [address] Hematocrit (Bld) [Volume fraction] 38.2 % Normal 34.0-46.4 [facility] Comment on above: Performed By: #### C UU #### [address] Hemoglobin (Bld) [Mass/Vol] 13.1 g/dL Normal 11.8-15.4 [facility] Comment on above: Performed By: #### C UU #### [address] Lymphocytes (Bld) [#/Vol] 0.7 10*3/uL Low 1.00-4.8 [facility] Comment on above: Performed By: #### C UU #### [address] Lymphocytes/100 WBC (Bld) 6.5 % Normal . [facility] Comment on above: Performed By: #### C UU #### [address] MCH (RBC) [Entitic mass] 34.2 pg Normal 24.7-34.3 [facility] Comment on above: Performed By: #### C UU #### [address] MCV (RBC) [Entitic vol] 100.1 fL High 80-100 [facility] Comment on above: Performed By: #### C UU #### [address] Mean Corpuscular HGB Conc 34.2 g/dL Normal 32.0-35.0 [facility] Comment on above: Performed By: #### C UU #### [address] Monocytes (Bld) [#/Vol] 0.8 10*3/uL Normal 0.0-0.8 [facility] Comment on above: Performed By: #### C UU #### [place] [address] [place] Monocytes/100 WBC (Bld) 7.1 % Normal . [facility] Comment on above: Performed By: #### C UU #### [place] [address] [place] Neutrophils (Bld) [#/Vol] 9.5 10*3/uL High 1.8-7.7 [facility] Comment on above: Performed By: #### C UU #### [address] Neutrophils/100 WBC (Bld) 85.9 % Normal . [facility] Comment on above: Performed By: #### C UU #### [address] NRBC% 0.0 /100{WBC} Normal 0-0.5 [facility] Comment on above: Performed By: #### C UU #### [address] Platelet mean volume (Bld) [Entitic vol] 8.9 fL Normal 6.3-10.7 [facility] Comment on above: Performed By: #### C UU #### [place] [address] [place] Platelets (Bld) [#/Vol] 178 10*3/uL Normal 150-450 [facility] Comment on above: Performed By: #### C UU #### [place] [address] [place] RBC (Bld) [#/Vol] 3.82 10*6/uL Normal 3.60-5.00 [facility] Comment on above: Performed By: #### C UU #### [place] [address] [place] WBC (Bld) [#/Vol] 11.0 10*3/uL Normal 3.8-11.6 [facility] Comment on above: Performed By: #### C UU #### [facility] [address] Creatinine [Mass/volume] in Serum or PlasmaOrdered By: Tiffany Guy on 01-29-2025 Creatinine [Mass/Vol] Creatinine [Mass/v olume] in Serum or Plasma 0.60-1.20 [facility] Eosinophils Auto (Bld) [#/Vo l]Ordered By: Tiffany Guy on 01-29-2025 Eosinophils (Bld) [#/Vol] Automated eosinophil count 0.0-0.45 [facility] Eosinophils/100 WBC Auto (Bl d)Ordered By: Tiffany Guy on 01-29-2025 Eosinophils/100 WBC (Bld) Automated eosinophil % . [facility] Erythrocyte distribution wid th Auto (RBC) [Ratio]Ordered By: Tiffany Guy on 01-29-2025 Erythrocyte distribution width (RBC) [Ratio] Erythrocyte distribution width [Ratio] by Automated count 11.9-15.3 [facility] Glucose Glucometer (BldC) [M ass/Vol]Ordered By: Alec Alvarez on 01-29-2025 Glucose [Mass/Vol] Capillary blood gluc ose measurement by glucometer (mass/volume) [facility] Comment on above: Random Glucose Refer ence Range is dependent on time and content of last meal. Glucose of more than 200 mg/dL in a nonstressed, ambulatory subject supports the diagnosis of Diabetes Mellitus. Glucose Poct Glucometerson 0 01-29-2025 Glucose [Mass/Vol] 281 mg/dL Normal [facility] Comment on above: Result Comment: [place] Glucose Reference Range is dependent on time and content of last meal. Glucose of more than 200 mg/dL in a nonstressed, ambulatory subject supports the diagnosis of Diabetes Mellitus. PERFORMED BY: [facility] [address] [place] [address] PATHOLOGIST CLASS B DRIVER ROMAINE HENDERSON M.D. Performed By: #### C UU #### [facility] [address] Glucose [Mass/Vol] 247 mg/dL Normal [facility] Comment on above: Result Comment: [place] om Glucose Reference Range is dependent on time and content of last meal. Glucose of more than 200 mg/dL in a nonstressed, ambulatory subject supports the diagnosis of Diabetes Mellitus. PERFORMED BY: [facility] [address] [place] [id number] PATHOLOGIST CLASS B DRIVER ROMAINE HENDERSON M.D. Performed By: #### G LULS #### Point of Care testing , Glucose [Mass/volume] in Ser um or PlasmaOrdered By: Tiffany Guy on 01-29-2025 Glucose [Mass/Vol] Glucose [Mass/volume ] in Serum or Plasma High 70-100 [facility] Comment on above: ADA recommended refe rence rangeRandom Glucose Reference Range is dependent on time and content of last meal. Glucose of more than 200 mg/dL in a nonstressed, ambulatory subject supports the diagnosis of Diabetes Mellitus. Hematocrit Auto (Bld) [Volum e fraction]Ordered By: Tiffany Guy on 01-29-2025 Hematocrit (Bld) [Volume fraction] Hematocrit [Volume Fraction] of Blood by Automated count 34.0-46.4 [facility] Hemoglobin A1c/Hemoglobin.to bárbara in BloodOrdered By: Tiffany Guy on 01-29-2025 HbA1c (Bld) [Mass fraction] Hemoglobin A1c percentage High 4.3-5.6 [facility] Comment on above: Increased risk for d iabetes: 5.7 - 6.4diabetes: >6.4glycemic control for adults with diabetes: <7.0 Hemoglobin [Mass/volume] in BloodOrdered By: Tiffany Guy on 01-29-2025 Hemoglobin (Bld) [Mass/Vol] Hemoglobin [Mass/volume] in Blood 11.8-15.4 [facility] INR in Platelet poor plasma by Coagulation assayOrdered By: Sandy Salcido on 01-29-2025 INR Coag (PPP) [Relative time] INR in Platelet poor plasma by Coagulation assay [facility] Comment on above: INR Therapeutic [...] erythrocytes in Blood by Automated coun 3.8-11.6 [facility] Lymphocytes Auto (Bld) [#/Vo l]Ordered By: Tiffany Guy on 01-29-2025 Lymphocytes (Bld) [#/Vol] Lymphocytes [#/volume] in Blood by Automated count Low 1.00-4.8 [facility] Lymphocytes/100 WBC Auto (Bl d)Ordered By: Tiffany Guy on 01-29-2025 Lymphocytes/100 WBC (Bld) Lymphocytes/100 leukocytes in Blood by Automated count . [facility] MCH Auto (RBC) [Entitic mass ]Ordered By: Tiffany Guy on 01-29-2025 MCH (RBC) [Entitic mass] MCH [Entitic mass] by Automated count 24.7-34.3 [facility] MCHC Auto (RBC) [Mass/Vol]Or dered By: Tiffany Guy on 01-29-2025 MCHC (RBC) [Mass/Vol] MCHC [Mass/volume] by Automated count 32.0-35.0 [facility] MCV Auto (RBC) [Entitic vol] Ordered By: Tiffany Guy on 01-29-2025 MCV (RBC) [Entitic vol] MCV [Entitic volume] by Automated count High 80-100 [facility] MR lumbar spine wo conon MR lumbar spine wo con [facility] [place] [address] MRI Report Signed Patient: Fatuma Fair MR#: [id number] : 1945 Acct:[id number] Age/Sex: 80 / F ADM Date: 01/29/25 Loc: Room: 9Q6960-4 Type: ADM IN Attending Dr: Alec Alvarez MD Copies to: DO Alec Luna MD Ordering Provider: Donell Rosenbaum DO Date of Service: 01/29/25 MR/MR lumbar spine wo con: fall w T12 burst fx MRI lumbar spine performed without contrast INDICATION: T12 burst fracture MR/MR lumbar spine wo con IMPRESSION: CT lumbar spine from [facility] 01/28/2025 FINDINGS: T12 burst fracture [...] Devin Alex M.D.01/29/2025 1:56 PM Dictation Location: [place] [address] Transcribed By: [facility] 01/29/25 1356 Dictated By: Devin Alex MD 01/29/25 1344 Signed By: 01/29/25 1356 Normal [facility] Magnesiumon 01-29-2025 Magnesium [Mass/Vol] 1.8 mg/dL Low 1.9-2.7 [facility] Comment on above: Result Comment: PERF ORMED BY: [place] [id number] PATHOLOGIST CLASS B DRIVER ROMAINE HENDERSON M.D. Performed By: #### G LULS #### Point of Care testing , Magnesium [Mass/volume] in S patricia or PlasmaOrdered By: Tiffany Guy on 01-29-2025 Magnesium [Mass/Vol] Magnesium [Mass/vol ume] in Serum or Plasma Low 1.9-2.7 [facility] Magnetic resonance imaging r eportOrdered By: Devin Alex on 01-29-2025 Study report [facility] [address] [address] MRI Report Signed Patient: Fatuma Fair MR#: [id number] : 1945 Acct:[id number] Age/Sex: 80 / F ADM Date: 5 Loc: 4N Room: 8I3928-2 Type: ADM IN Attending Dr: Alec Alvarez MD Copies to: DO Alec Luna MD~ Ordering Provider: Donell Rosenbaum DO Date of Service: 01/29/25 MR/MR lumbar spine wo con: fall w T12 burst fx MRI lumbar spine performed without contrast INDICATION: T12 burst fracture MR/MR lumbar spine wo con IMPRESSION: CT lumbar spine from [facility] 01/28/2025 FINDINGS: T12 burst fracture [...] Devin Alex M.D.01/29/2025 1:56 PM Dictation Location: [place] [address] Transcribed By: JORGE 01/29/25 1356 Dictated By: Devin Alex MD 01/29/25 1344 Signed By: 01/29/25 1356 [facility] Work Phone: Monocytes Auto (Bld) [#/Vol] Ordered By: Tiffany Guy on 01-29-2025 Monocytes (Bld) [#/Vol] Automated blood monocyte count 0.0-0.8 [facility] Monocytes/100 WBC Auto (Bld) Ordered By: Tiffany Guy on 01-29-2025 Monocytes/100 WBC (Bld) Automated monocyte % . [facility] Neutrophils Auto (Bld) [#/Vo l]Ordered By: Tiffany Guy on 01-29-2025 Neutrophils (Bld) [#/Vol] Neutrophils [#/volume] in Blood by Automated count High 1.8-7.7 [facility] Neutrophils/100 WBC Auto (Bl d)Ordered By: Tiffany Guy on 01-29-2025 Neutrophils/100 WBC (Bld) Automated neutrophil % . [facility] No Panel InformationOrdered By: Tiffany Guy on 01-29-2025 Estimated GFR (CKD-EPI) > 60.0 mL/Min [facility] Creatinine Clearance (Chem 48.43 [facility] Nucleated erythrocytes [Pres ence] in Blood by Automated countOrdered By: Tiffany Guy on 01-29-2025 Nucleated RBC Auto Ql (Bld) Nucleated erythrocytes [Presence] in Blood by Automated count 0-0.5 [facility] Platelet mean volume Auto (B ld) [Entitic vol]Ordered By: Tiffany Guy on 01-29-2025 Platelet mean volume (Bld) [Entitic vol] Platelet mean volume [Entitic volume] in Blood by Automated count 6.3-10.7 [facility] Platelets Auto (Bld) [#/Vol] Ordered By: Tiffany Guy on 01-29-2025 Platelets (Bld) [#/Vol] Platelets [#/volume] in Blood by Automated count 150-450 [facility] Potassium [Moles/volume] in Serum or PlasmaOrdered By: Tiffany Guy on 01-29-2025 Potassium [Moles/Vol] Potassium [Moles/v olume] in Serum or Plasma 3.5-5.1 [facility] Procalcitoninon 01-29-2025 Procalcitonin 0.12 ng/mL High 0.00-0.08 [facility] Comment on above: [...] concentrations <2 ng/mL are obtained. Performed at: [address] [id number] Meatcutter: Shari Ruiz MD, Phone: [phone] PERFORMED BY: [facility] [address] [place] [address] PATHOLOGIST CLASS B DRIVER ROMAINE HENDERSON M.D. Performed By: #### G DESHAWN #### Point of Care testing , Procalcitonin [Mass/volume] in Serum or PlasmaOrdered By: Tiffany Guy on 01-29-2025 Procalcitonin [Mass/Vol] Serum procalcitonin measurement High 0.00-0.08 [facility] Comment on above: A procalcitonin [...] any concentrations <2 ng/mL are obtained.Performed at: [address] [id number] Director: Shari Ruiz MD, Phone: [phone] Prothrombin Time INRon 01-29 INR Coag (PPP) [Relative time] 2.0 {INR} Normal [facility] Comment on above: Result Comment: [...] heart valves: 3 - 4.5 PERFORMED BY: [facility] [address] [place] [address] PATHOLOGIST CLASS B DRIVER ROMAINE HENDERSON M.D. Performed By: #### P T #### [facility] [address] [place] [id number] [facility] PT Coag (PPP) [Time] 22.6 s High 9.0-12.9 [facility] Comment on above: Result Comment: A he matocrit value greater than 55% may lead to inaccurate results in coagulation testing. Patients having hematocrit values >55% require a special collection tube for coagulation studies. Please contact the laboratory at [phone] for redraw instructions. Performed By: #### P T #### [facility] [address] [place] [address] [facility] Prothrombin time (PT)Ordered By: Sandy Salcido on 01-29-2025 PT Coag (PPP) [Time] Prothrombin time (PT) High 9.0- 12.9 [facility] Comment on above: A hematocrit value g reater than 55% may lead to inaccurate results in coagulation testing. Patients having hematocrit values >55% require a special collection tube for coagulation studies. Please contact the laboratory at [phone] for redraw instructions. RBC Auto (Bld) [#/Vol]Ordere d By: Tiffany Guy on 01-29-2025 RBC (Bld) [#/Vol] Erythrocytes [#/volu me] in Blood by Automated count 3.60-5.00 [facility] Serum or plasma anion gap de terminationOrdered By: Tiffany Guy on 01-29-2025 Anion gap [Moles/Vol] Serum or plasma an ion gap determination 6.0-15.0 [facility] Sodium [Moles/volume] in Ser um or PlasmaOrdered By: Tiffany Guy on 01-29-2025 Sodium [Moles/Vol] Sodium [Moles/volume ] in Serum or Plasma Low 136-145 [facility] Urea nitrogen [Mass/volume] in Serum or PlasmaOrdered By: Tiffany Guy on 01-29-2025 Urea nitrogen [Mass/Vol] Urea nitrogen [Mass/volume] in Serum or Plasma High 7-25 [facility] Urine Cultureon 01-29-2025 Bacteria identified Cx Nom (U) >100,000 colonies/ml mixed bacterial skin contaminants 2 Days PERFORMED BY: [facility] [address] [place] [address] PATHOLOGIST CLASS B DRIVER ROMAINE Thompson [facility] Comment on above: Performed By: #### C UU #### [address] Urine cultureOrdered By: Tati Salcido on 01-29-2025 Bacteria identified Cx Nom (U) Urine culture [facility] WBC Auto (Bld) [#/Vol]Ordere d By: Tiffany Guy on 01-29-2025 WBC (Bld) [#/Vol] Leukocytes [#/volume ] in Blood by Automated count 3.8-11.6 [facility] Basophils Auto (Bld) [#/Vol] on 01-28-2025 Basophils (Bld) [#/Vol] Automated basophil count 0.0-0.1 [facility] Basophils/100 WBC Auto (Bld) on 01-28-2025 Basophils/100 WBC (Bld) Automated basophil % Low 0.2-2.0 [facility] Eosinophils/100 WBC Auto (Bl d)on 01-28-2025 Eosinophils/100 WBC (Bld) Automated eosinophil % Low 0.9-7.0 [facility] Erythrocyte distribution wid th Auto (RBC) [Ratio]on 01-28-2025 Erythrocyte distribution width (RBC) [Ratio] Erythrocyte distribution width [Ratio] by Automated count 11.0-15.0 [facility] Estimated glomerular filtrat ion rate (GFR) non- Americanon 01-28-2025 GFR/1.73 sq M.predicted among non-blacks MDRD (S/P/Bld) [Vol rate/Area] Estimated glomerular filtration rate (GFR) non- Low >=60 mL/min/1.7 3m 2 [facility] Hematocrit Auto (Bld) [Volum e fraction]on 01-28-2025 Hematocrit (Bld) [Volume fraction] Hematocrit [Volume Fraction] of Blood by Automated count 36.0-48.0 [facility] Hemoglobin [Mass/volume] in Bloodon 01-28-2025 Hemoglobin (Bld) [Mass/Vol] Hemoglobin [Mass/volume] in Blood 12.0-16.0 [facility] Laboratory - Chemistry and C hemistry - challengeon 01-28-2025 Calcium [Mass/Vol] 9.6 mg/dL 8.5-10.1 [facility] Chloride [Moles/Vol] 96 mmol/L Low 98-107 [facility] CO2 [Moles/Vol] 27.0 mmol/L 21.0-32.0 [facility] Creatinine [Mass/Vol] 1.17 mg/dL High 0.55-1.02 [facility] GFR/1.73 sq M.predicted MDRD (S/P/Bld) [Vol rate/Area] 54 mL/min/{1.73_m2} Low >=60 mL/min/1.7 3m 2 [facility] Glucose [Mass/Vol] 308 mg/dL High 74-106 [facility] Potassium [Moles/Vol] 4.0 mmol/L 3.5-5.1 [facility] Sodium [Moles/Vol] 132 mmol/L Low 136-145 [facility] Urea nitrogen [Mass/Vol] 39.0 mg/dL High 7.0-18.0 [facility] Urea nitrogen/Creatinine [Mass ratio] 33.3 mg/mg [facility] Laboratory - Hematology and Cell countson 01-28-2025 Immature granulocytes/100 WBC (Bld) 0.8 % High 0.0-0.5 [facility] Leukocytes [#/volume] correc [place] for nucleated erythrocytes in Blood by Automated counon 01-28-2025 WBC corrected for nucl RBC Auto (Bld) [#/Vol] Leukocytes [#/volume] corrected for nucleated erythrocytes in Blood by Automated coun High 4.0-11.0 [facility] Lymphocytes Auto (Bld) [#/Vo l]on 01-28-2025 Lymphocytes (Bld) [#/Vol] Lymphocytes [#/volume] in Blood by Automated count Low 1.2-3.8 [facility] Lymphocytes/100 WBC Auto (Bl d)on 01-28-2025 Lymphocytes/100 WBC (Bld) Lymphocytes/100 leukocytes in Blood by Automated count Low 20.5-60.0 [facility] MCH Auto (RBC) [Entitic mass ]on 01-28-2025 MCH (RBC) [Entitic mass] MCH [Entitic mass] by Automated count High 26.7-34.0 [facility] MCHC Auto (RBC) [Mass/Vol]on 01-28-2025 MCHC (RBC) [Mass/Vol] MCHC [Mass/volume] by Automated count 29.9-35.2 [facility] MCV Auto (RBC) [Entitic vol] on 01-28-2025 MCV (RBC) [Entitic vol] MCV [Entitic volume] by Automated count High 81.0-99.0 [facility] Monocytes Auto (Bld) [#/Vol] on 01-28-2025 Monocytes (Bld) [#/Vol] Automated blood monocyte count High 0.3-0.8 [facility] Monocytes/100 WBC Auto (Bld) on 01-28-2025 Monocytes/100 WBC (Bld) Automated monocyte % 1.7-12.0 [facility] Neutrophils Auto (Bld) [#/Vo l]on 01-28-2025 Neutrophils (Bld) [#/Vol] Neutrophils [#/volume] in Blood by Automated count High 1.4-6.5 [facility] Neutrophils/100 WBC Auto (Bl d)on 01-28-2025 Neutrophils/100 WBC (Bld) Automated neutrophil % High 43.0-75.0 [facility] No Panel Informationon 01-28 Eosinophils # (Auto) 0.0 10 3/uL 0.0-0.7 [facility] Immature Granulocyte # (Auto) 0.14 10 3/uL High 0.00-0.03 [facility] Platelet mean volume Auto (B ld) [Entitic vol]on 01-28-2025 Platelet mean volume (Bld) [Entitic vol] Platelet mean volume [Entitic volume] in Blood by Automated count 9.5-13.5 [facility] Platelets Auto (Bld) [#/Vol] on 01-28-2025 Platelets (Bld) [#/Vol] Platelets [#/volume] in Blood by Automated count 150-450 [facility] RBC Auto (Bld) [#/Vol]on RBC (Bld) [#/Vol] Erythrocytes [#/volu me] in Blood by Automated count Low 4.20-5.40 [facility] Serum or plasma anion gap de terminationon 01-28-2025 Anion gap [Moles/Vol] Serum or plasma an ion gap determination [facility] Urine Cultureon 01-28-2025 Bacteria identified Cx Nom (U) >100,000 colonies/ml mixed bacterial skin contaminants 2 Days PERFORMED BY: [facility] [address] [place] [address] PATHOLOGIST CLASS B DRIVER ROMAINE HENDERSON M.D. Normal [facility] Comment on above: Performed By: #### G LULS #### Point of Care testing , Urine cultureOrdered By: Ronald Forbes on 01-28-2025 Bacteria identified Cx Nom (U) Urine culture [facility] XR Femur and Tibia Views for leg lengthon 01-23-2025 Total limb length discrepancy = 0.3 cm Focal area of cortical thickening in the proximal left femur on single AP view. Recommend dedicated left femur radiographs. [facility] EXAMINATION: BONE LENGTH STUDIES, 01/22/2025 [...] focal cortical thickening proximal left femoral diaphysis. [facility] José Luis Gill D O [...] AP view. Recommend dedicated left femur radiographs. [facility] XR Femur and Tibia Views for leg lengthOrdered By: José Luis Gill on 01-23-2025 [facility] Work Phone: XR LEG LENGTH EVALUATIONon [...] Luis Gill DO 01/23/25 Final result Normal [facility] XR Femur and Tibia Views for leg lengthon 01-22-2025 Radiology Study observation (narrative) [facility] XR Foot - left 3 Viewson [...] fascia distal to the plantar fascial origin. [facility] Radiology Study observation (narrative) [facility] XR Foot - right 3 Viewson Imaging [...] fascia distal to the plantar fascial origin. [facility] Radiology Study observation (narrative) [facility] HbA1c HPLC (Bld) [Mass fract ion]on 01-03-2025 HbA1c (Bld) [Mass fraction] Hemoglobin A1c/Hemoglobin.total in Blood by HPLC [facility] XR FEMUR RIGHT (MIN 2 VIEWS) on 08-15-2024 XR FEMUR RIGHT (MIN 2 VIEWS) EXAMINATION: XRAY VIEWS OF THE RIGHT FEMUR 08/15/2024 2:53 pm COMPARISON: September 24, 2023 HISTORY: ORDERING SYSTEM PROVIDED HISTORY: Closed fracture of shaft of right femur, initial encounter ([facility]) FINDINGS: Interval hardware s/p ORIF mid right femur. Stable total right hip arthroplasty. No acute interval change. Generalized osteopenia. There is atherosclerosis through the soft tissues. IMPRESSION: Status post ORIF right femur fracture. No acute findings. Interpreted by: José Luis Gill DO Signed by: José Luis Gill DO 08/15/24 Final result Normal [facility] Office Visiton 08-11-2024 Follow-up visit [id number] Briseyda Fair 1945 F Date Provider Department Center 08/11/2024 [facility] Family History Problem Relation Age of Onset Heart attack Father Stroke Father Family Status - Relation Status Age at Father Level of Service:[address] NE OFFICE/OUTPATIENT ESTABLISHED LOW MDM 20 MIN Normal [facility] Glucose mean value [Mass/vol ume] in Blood Estimated from glycated hemoglobinon 07-27-2024 Average glucose Estimated from glycated hemoglobin (Bld) [Mass/Vol] 171 mg/dL [facility] Laboratory - Chemistry and C hemistry - challengeon 07-27-2024 TSH Qn 2.479 m[IU]/L 0.358-3.74 0 [facility] - Hematology and Cell countson 07-27-2024 HbA1c (Bld) [Mass fraction] 7.6 % High 4.5-6.2 [facility] Comment on above: ADA RECOMMENDED LIMI T 4.0 - 6.0ADA THERAPEUTIC TARGET < 7.0ACTION SUGGESTED> 7.0 Influenza virus B Ag [Presen ce] in Upper respiratory specimen by Rapid immunoassayon 07-18-2024 FLUBV Ag IA.rapid Ql (Nph) Negative [facility] No Panel Informationon 07-18 Influenza Type A (Rapid) Negative [facility] POC SARS CoV-2 Antigen Positive [facility] Laboratory - Chemistry and C hemistry - challengeon 07-10-2024 Bilirubin Ql (U) Negative [facility] Glucose (U) [Mass/Vol] Negative [facility] Ketones Ql (U) 1.005 [facility] pH (U) 5.0 [pH] [facility] Specific gravity (U) [Rel density] 1.010 [facility] Urobilinogen (U) [Mass/Vol] 0.2 mg/dL [facility] Laboratory - Specimen inform ationon 07-10-2024 Appearance (U) cloudy [facility] Color (U) yellow [facility] Laboratory - Urinalysison Leukocyte esterase Test strip Ql (U) moderate [facility] Nitrite Ql (U) Negative [facility] Protein Ql (U) 4 [facility] No Panel Informationon 07-10 Urine Occult Blood 7.5 [facility] Laboratory - Chemistry and C hemistry - challengeon 05-30-2024 Bilirubin Ql (U) Negative [facility] Glucose (U) [Mass/Vol] Negative [facility] Ketones Ql (U) Negative [facility] pH (U) 5.0 [pH] [facility] Specific gravity (U) [Rel density] 1.010 [facility] Urobilinogen (U) [Mass/Vol] 0.2 mg/dL [facility] Laboratory - Specimen inform ationon 05-30-2024 Appearance (U) cloudy [facility] Color (U) yellow [facility] Laboratory - Urinalysison Leukocyte esterase Test strip Ql (U) ++ [facility] Nitrite Ql (U) Negative [facility] Protein Ql (U) Positive [facility] No Panel Informationon 05-30 Urine Occult Blood +++ [facility] Basophils Auto (Bld) [#/Vol] on 02-25-2024 Basophils (Bld) [#/Vol] 0.1 10 3/uL 0.0-0.1 [facility] Basophils/100 WBC Auto (Bld) on 02-25-2024 Basophils/100 WBC (Bld) 0.9 % 0.2-2.0 [facility] Cholesterol in LDL Calc [Mas s/Vol]on 02-25-2024 Cholesterol in LDL [Mass/Vol] 76.0 mg/dL [facility] Comment on above: <100 mg/dl [id number] 0-129 mg/dl NEAR OR ABOVE [id number] mg/dl BORDERLINE [id number] mg/dl HIGH>190 mg/dl VERY HIGH Cholesterol in VLDL Calc [Ma ss/Vol]on 02-25-2024 Cholesterol in VLDL [Mass/Vol] 19.6 mg/dL [facility] Eosinophils/100 WBC Auto (Bl d)on 02-25-2024 Eosinophils/100 WBC (Bld) 5.1 % 0.9-7.0 [facility] Erythrocyte distribution wid th Auto (RBC) [Ratio]on 02-25-2024 Erythrocyte distribution width (RBC) [Ratio] 14.8 % 11.0-15.0 [facility] Estimated glomerular filtrat ion rate (GFR) non- Americanon 02-25-2024 GFR/1.73 sq M.predicted among non-blacks MDRD (S/P/Bld) [Vol rate/Area] 53 mL/min/{1.73_m2} >=60 [facility] Globulin Calc (S) [Mass/Vol] on 02-25-2024 Globulin (S) [Mass/Vol] 3.7 g/dL [facility] Glucose mean value [Mass/vol ume] in Blood Estimated from glycated hemoglobinon 02-25-2024 Average glucose Estimated from glycated hemoglobin (Bld) [Mass/Vol] 137 mg/dL [facility] Hematocrit Auto (Bld) [Volum e fraction]on 02-25-2024 Hematocrit (Bld) [Volume fraction] 40.0 % 36.0-48.0 [facility] Hemoglobin [Mass/volume] in Bloodon 02-25-2024 Hemoglobin (Bld) [Mass/Vol] 12.9 g/dL 12.0-16.0 [facility] Laboratory - Chemistry and C hemistry - challengeon 02-25-2024 Albumin [Mass/Vol] 3.9 g/dL 3.4-5.0 [facility] ALP [Catalytic activity/Vol] 80 U/L 46-116 [facility] ALT [Catalytic activity/Vol] 45 U/L 14-59 [facility] AST [Catalytic activity/Vol] 34 U/L 15-37 [facility] Bilirubin [Mass/Vol] 0.6 mg/dL 0.2-1.0 [facility] Calcium [Mass/Vol] 9.7 mg/dL 8.5-10.1 [facility] Chloride [Moles/Vol] 103 mmol/L 98-107 [facility] Cholesterol [Mass/Vol] 157 mg/dL <=200 [facility] Cholesterol in HDL [Mass/Vol] 62 mg/dL 40-60 [facility] Comment on above: > or =60 mg/dl - LOW CARDIOVASCULAR RISK<40 mg/dl - HIGH CARDIOVASCULAR RISK CO2 [Moles/Vol] 26.5 mmol/L 21.0-32.0 [facility] Creatinine [Mass/Vol] 1.00 mg/dL 0.55-1.02 [facility] Free T4 [Mass/Vol] 0.55 ng/dL 0.76-1.46 [facility] GFR/1.73 sq M.predicted MDRD (S/P/Bld) [Vol rate/Area] mL/min/{1.73_m2} >=60 [facility] Glucose [Mass/Vol] 136 mg/dL 74-106 [facility] Potassium [Moles/Vol] 3.9 mmol/L 3.5-5.1 [facility] Protein [Mass/Vol] 7.6 g/dL 6.4-8.2 [facility] Sodium [Moles/Vol] 141 mmol/L 136-145 [facility] Triglyceride [Mass/Vol] 98 mg/dL <=150 [facility] TSH Qn 13.739 m[IU]/L 0.358-3.74 0 [facility] Urea nitrogen [Mass/Vol] 23.0 mg/dL 7.0-18.0 [facility] Urea nitrogen/Creatinine [Mass ratio] 23.0 mg/mg [facility] Laboratory - Hematology and Cell countson 02-25-2024 HbA1c (Bld) [Mass fraction] 6.4 % 4.5-6.2 [facility] Comment on above: ADA RECOMMENDED LIMI T 4.0 - 6.0ADA THERAPEUTIC TARGET < 7.0ACTION SUGGESTED> 7.0 Immature granulocytes/100 WBC (Bld) 0.2 % 0.0-0.5 [facility] Leukocytes [#/volume] correc london for nucleated erythrocytes in Blood by Automated counon 02-25-2024 WBC corrected for nucl RBC Auto (Bld) [#/Vol] 5.7 10 3/uL 4.0-11.0 [facility] Lymphocytes Auto (Bld) [#/Vo l]on 02-25-2024 Lymphocytes (Bld) [#/Vol] 1.1 10 3/uL 1.2-3.8 [facility] Lymphocytes/100 WBC Auto (Bl d)on 02-25-2024 Lymphocytes/100 WBC (Bld) 19.0 % 20.5-60.0 [facility] MCH Auto (RBC) [Entitic mass ]on 02-25-2024 MCH (RBC) [Entitic mass] 32.1 pg 26.7-34.0 [facility] MCHC Auto (RBC) [Mass/Vol]on 02-25-2024 MCHC (RBC) [Mass/Vol] 32.3 g/dL 29.9-35.2 [facility] MCV Auto (RBC) [Entitic vol] on 02-25-2024 MCV (RBC) [Entitic vol] 99.5 fL 81.0-99.0 [facility] Microalbumin [Mass/volume] i n Urineon 02-25-2024 Albumin DL <= 20 mg/L (U) [Mass/Vol] mg/dL <=30.0 [facility] Monocytes Auto (Bld) [#/Vol] on 02-25-2024 Monocytes (Bld) [#/Vol] 0.5 10 3/uL 0.3-0.8 [facility] Monocytes/100 WBC Auto (Bld) on 02-25-2024 Monocytes/100 WBC (Bld) 8.6 % 1.7-12.0 [facility] Neutrophils Auto (Bld) [#/Vo l]on 02-25-2024 Neutrophils (Bld) [#/Vol] 3.8 10 3/uL 1.4-6.5 [facility] Neutrophils/100 WBC Auto (Bl d)on 02-25-2024 Neutrophils/100 WBC (Bld) 66.2 % 43.0-75.0 [facility] No Panel Informationon 02-24 Eosinophils # (Auto) 0.3 10 3/uL 0.0-0.7 [facility] Immature Granulocyte # (Auto) 0.01 10 3/uL 0.00-0.03 [facility] Total Triiodothyronine 117 ng/dL 71-180 [facility] Comment on above: Performed at: [place] [id number] Director: Brad Figueroa PhD, Phone: [phone] Platelet mean volume Auto (B ld) [Entitic vol]on 02-25-2024 Platelet mean volume (Bld) [Entitic vol] 10.3 fL 9.5-13.5 [facility] Platelets Auto (Bld) [#/Vol] on 02-25-2024 Platelets (Bld) [#/Vol] 232 10 3/uL 150-450 [facility] RBC Auto (Bld) [#/Vol]on RBC (Bld) [#/Vol] 4.02 10 6/uL 4.20-5.40 [facility] Serum or plasma albumin/glob ulin mass ratioon 02-25-2024 Albumin/Globulin [Mass ratio] 1.1 {ratio} [facility] Serum or plasma anion gap de terminationon 02-25-2024 Anion gap [Moles/Vol] 15.4 mmol/L [facility] Serum or plasma total choles terol/high density lipoprotein (HDL) cholesterol mass katie 02-25-2024 Cholesterol.total/Chol esterol in HDL [Mass ratio] 2.5 {ratio} [facility] Comment on above: 3.3 - 4.4 LOW RISK4. 4 - 7.1 AVERAGE RISK7.1 - 11.0 MODERATE RISK>11.0 HIGH RISK GLUCOSE POCon 09-30-2023 Glucose [Mass/Vol] 162 mg/dL High [address] Comment on above: Performed By: #### A ALINE SOLIS, ICAL, EGFR1, BMPX #### [facility] [address] [place] [address] GLUCOSE POCon 09-29-2023 Glucose [Mass/Vol] 255 mg/dL High [address] Comment on above: Performed By: #### P OCGL #### [facility] [address] [address] Glucose [Mass/Vol] 172 mg/dL High [address] Comment on above: Performed By: #### P OCGL #### [facility] [address] [place] [address] Glucose [Mass/Vol] 248 mg/dL High [address] [place] [address] Comment on above: Performed By: #### A ALINE SOLIS, ICAL, EGFR1, BMPX #### [facility] [address] [place] [address] GLUCOSE POCon 09-28-2023 Glucose [Mass/Vol] 200 mg/dL High [address] [place] [address] Comment on above: Performed By: #### A WILL CBCTUAN, ICAL, EGFR1, BMPX #### [facility] [address] [address] Glucose [Mass/Vol] 226 mg/dL High [address] [place] [address] Comment on above: Performed By: #### A WILL CBCWD, ICAL, EGFR1, BMPX #### [facility] [address] [place] [address] Glucose [Mass/Vol] 230 mg/dL High [address] [place] [address] Comment on above: Performed By: #### A WILL CBCWD, ICAL, EGFR1, BMPX #### [facility] [address] [place] [address] Glucose [Mass/Vol] 204 mg/dL High [address] Comment on above: Performed By: #### A WILL CBCWD, ICAL, EGFR1, BMPX #### [facility] [address] [address] ANION GAPon 09-27-2023 Anion gap [Moles/Vol] 9.0 mmol/L Normal 8.0-16.0 [facility] Comment on above: Result Comment: ANIO N GAP = Sodium -(Chloride + CO2) Performed By: #### A WILL, ALINE, ICAL, EGFR1, BMPX #### [facility] [address] [place] [address] BASIC METABOL PANELon 2022 Calcium [Mass/Vol] 8.5 mg/dL Normal 8.5-10.5 [facility] Comment on above: Performed By: #### A ALINE SOLIS, ICAL, EGFR1, BMPX #### [address] [address] Chloride [Moles/Vol] 102 mmol/L Normal 98-111 [facility] Comment on above: Performed By: #### A ALINE SOLIS, ICAL, EGFR1, BMPX #### [facility] [address] [place] [address] CO2 [Moles/Vol] 25 mmol/L Normal 23-33 [facility] Comment on above: Performed By: #### A ALINE SOLIS, ICAL, EGFR1, BMPX #### [address] [address] Creatinine [Mass/Vol] 0.7 mg/dL Normal 0.4-1.2 [facility] Comment on above: Performed By: #### A ALINE SOLIS, ICAL, EGFR1, BMPX #### [facility] [address] [place] [address] Glucose [Mass/Vol] 232 mg/dL High 70-108 [facility] Comment on above: Performed By: #### A BRIANNE SOLISWD, ICAL, EGFR1, BMPX #### [facility] [address] [place] [address] POTASSIUM WITH REFLEX MG 4.1 meq/L Normal 3.5-5.2 [facility] Comment on above: Performed By: #### A NION, CBCWD, ICAL, EGFR1, BMPX #### [place] [address] Sodium [Moles/Vol] 136 mmol/L Normal 135-145 [facility] Comment on above: Performed By: #### A WILL, CBCWD, ICAL, EGFR1, BMPX #### [place] [address] Urea nitrogen [Mass/Vol] 27 mg/dL High 7-22 [facility] Comment on above: Performed By: #### A WILL, CBCWD, ICAL, EGFR1, BMPX #### [place] [address] CBC WITH DIFFERENTIALon 11-0 -2022 ABS BASOPHILS 0.0 thou/mm3 Normal 0.0-0.1 [facility] Comment on above: Performed By: #### A WILL CBCWD, ICAL, EGFR1, BMPX #### [place] [address] ABS EOSINOPHILS 0.0 thou/mm3 Normal 0.0-0.4 [facility] Comment on above: Performed By: #### A WILL, CBCWD, ICAL, EGFR1, BMPX #### [place] [address] ABS IMMATURE GRANS (IG) 0.08 thou/mm3 High 0.00-0.07 [facility] Comment on above: Performed By: #### A WILL, CBCWD, ICAL, EGFR1, BMPX #### [place] [address] ABS LYMPHOCYTES 0.7 thou/mm3 Low 1.0-4.8 [facility] Comment on above: Performed By: #### A WILL, CBCWD, ICAL, EGFR1, BMPX #### [place] [address] ABS MONOCYTES 0.5 thou/mm3 Normal 0.4-1.3 [facility] Comment on above: Performed By: #### A WILL, CBCWD, ICAL, EGFR1, BMPX #### [address] [address] ABS NEUTROPHILS 9.6 thou/mm3 High 1.8-7.7 [facility] Comment on above: Performed By: #### A WILL, CBCWD, ICAL, EGFR1, BMPX #### [address] [address] Basophils/100 WBC (Bld) 0.1 % Normal [facility] Comment on above: Performed By: #### A WILL, CBCWD, ICAL, EGFR1, BMPX #### [address] [address] Eosinophils/100 WBC (Bld) 0.0 % Normal [facility] Comment on above: Performed By: #### A WILL, CBCWD, ICAL, EGFR1, BMPX #### [address] [address] Erythrocyte distribution width (RBC) [Ratio] 13.2 % Normal 11.5-14.5 [facility] Comment on above: Performed By: #### A WILL CBCTUAN, ICAL, EGFR1, BMPX #### [address] [address] Hematocrit (Bld) [Volume fraction] 24.4 % Low 37.0-47.0 [facility] Comment on above: Performed By: #### A WILL, CBCWD, ICAL, EGFR1, BMPX #### [address] [address] Hemoglobin (Bld) [Mass/Vol] 7.7 g/dL Low 12.0-16.0 [facility] Comment on above: Performed By: #### A WILL, CBCWD, ICAL, EGFR1, BMPX #### [address] [address] IMMATURE GRANS (IG) 0.7 % Normal [facility] Comment on above: Performed By: #### A WILL, CBCWD, ICAL, EGFR1, BMPX #### [address] [address] Lymphocytes/100 WBC (Bld) 6.4 % Normal [facility] Comment on above: Performed By: #### A BRIANNE SOLISWD, ICAL, EGFR1, BMPX #### [facility] [address] [place] [address] MCH (RBC) [Entitic mass] 32.9 pg Normal 26.0-33.0 [facility] Comment on above: Performed By: #### A WILL, CBCWD, ICAL, EGFR1, BMPX #### [facility] [address] [place] [address] MCHC (RBC) [Mass/Vol] 31.6 g/dL Low 32.2-35.5 [facility] Comment on above: Performed By: #### A WILL, CBCWD, ICAL, EGFR1, BMPX #### [facility] [address] [place] [address] MCV (RBC) [Entitic vol] 104.3 fL High 81.0-99.0 [facility] Comment on above: Performed By: #### A WILL, CBCWD, ICAL, EGFR1, BMPX #### [address] [address] Monocytes/100 WBC (Bld) 4.4 % Normal [facility] Comment on above: Performed By: #### A WILL, CBCWD, ICAL, EGFR1, BMPX #### [address] [address] Neutrophils/100 WBC (Bld) 88.4 % Normal [facility] Comment on above: Performed By: #### A WILL, CBCWD, ICAL, EGFR1, BMPX #### [facility] [address] [place] [address] NRBC 0 /100 wbc Normal [facility] Comment on above: Performed By: #### A WILL, CBCWD, ICAL, EGFR1, BMPX #### [facility] [address] [place] [address] PLATELET 183 thou/mm3 Normal 130-400 [facility] Comment on above: Performed By: #### A WILL, CBCWD, ICAL, EGFR1, BMPX #### [address] [address] Platelet mean volume (Bld) [Entitic vol] 10.5 fL Normal 9.4-12.4 [facility] Comment on above: Performed By: #### A NION, CBCWD, ICAL, EGFR1, BMPX #### [place] [address] RBC 2.34 mill/mm3 Low 4.20-5.40 [facility] Comment on above: Performed By: #### A NION, CBCWD, ICAL, EGFR1, BMPX #### [place] [address] RDW-SD 49.1 fL High 35.0-45.0 [facility] Comment on above: Performed By: #### A NIRANJIT, CBCWD, ICAL, EGFR1, BMPX #### [place] [address] WBC 10.9 thou/mm3 High 4.8-10.8 [facility] Comment on above: Performed By: #### A WILL, CBCWD, ICAL, EGFR1, BMPX #### [place] [address] GFR, ESTIMATEDon 09-27-2023 GFR/1.73 sq M.predicted MDRD (S/P/Bld) [Vol rate/Area] mL/min/{1.73_m2} Normal >60 [facility] Comment on above: Result Comment: Pedi atric [...] A NION, CBCWD, ICAL, EGFR1, BMPX #### [facility] [address] [address] GLUCOSE POCon 09-27-2023 Glucose [Mass/Vol] 280 mg/dL High [address] [place] [address] Comment on above: Performed By: #### P OCGL #### [address] [address] Glucose [Mass/Vol] 285 mg/dL High [address] [place] [address] Comment on above: Performed By: #### A ALINE SOLIS, ICAL, EGFR1, BMPX #### [address] [address] Glucose [Mass/Vol] 328 mg/dL High [address] Comment on above: Performed By: #### A ALINE SOLIS, ICAL, EGFR1, BMPX #### [address] [address] Glucose [Mass/Vol] 237 mg/dL High [address] [place] [address] Comment on above: Performed By: #### A ALINE SOLIS, ICAL, EGFR1, BMPX #### [address] [address] ANION GAPon 09-26-2023 Anion gap [Moles/Vol] 14.0 mmol/L Normal 8.0-16.0 [facility] Comment on above: Result Comment: ANIO N GAP = Sodium -(Chloride + CO2) Performed By: #### A ALINE SOLIS, ICAL, EGFR1, BMPX #### [address] [address] BASIC METABOL PANELon 2022 Calcium [Mass/Vol] 9.0 mg/dL Normal 8.5-10.5 [facility] Comment on above: Performed By: #### A ALINE SOLIS, ICAL, EGFR1, BMPX #### [facility] [address] [place] [address] Chloride [Moles/Vol] 100 mmol/L Normal 98-111 [facility] Comment on above: Performed By: #### A NION, CBCWD, ICAL, EGFR1, BMPX #### [facility] [address] [place] [address] CO2 [Moles/Vol] 22 mmol/L Low 23-33 [facility] Comment on above: Performed By: #### A WILL, CBCWD, ICAL, EGFR1, BMPX #### [facility] [address] [place] [address] Creatinine [Mass/Vol] 1.0 mg/dL Normal 0.4-1.2 [facility] Comment on above: Performed By: #### A WILL, CBCWD, ICAL, EGFR1, BMPX #### [facility] [address] [place] [address] Glucose [Mass/Vol] 258 mg/dL High 70-108 [facility] Comment on above: Performed By: #### A WILL CBCTUAN, ICAL, EGFR1, BMPX #### [address] [address] POTASSIUM WITH REFLEX MG 4.1 meq/L Normal 3.5-5.2 [facility] Comment on above: Performed By: #### A WILL, CBCTUAN, ICAL, EGFR1, BMPX #### [address] [address] Sodium [Moles/Vol] 136 mmol/L Normal 135-145 [facility] Comment on above: Performed By: #### A WILL, CBCTUAN, ICAL, EGFR1, BMPX #### [address] [address] Urea nitrogen [Mass/Vol] 28 mg/dL High 7-22 [facility] Comment on above: Performed By: #### A WILL, CBCWD, ICAL, EGFR1, BMPX #### [address] [address] CALCIUM (IONIZED) * WBon CALCIUM (IONIZED) * WB 1.21 mmol/L Normal 1.12-1.32 [facility] Comment on above: Performed By: #### A WILL, CBCWD, ICAL, EGFR1, BMPX #### [place] [address] CBC WITH DIFFERENTIALon 11-0 -2022 ABS BASOPHILS 0.0 thou/mm3 Normal 0.0-0.1 [facility] Comment on above: Performed By: #### A WILL, BRIANNEWD, ICAL, EGFR1, BMPX #### [address] [address] ABS EOSINOPHILS 0.0 thou/mm3 Normal 0.0-0.4 [facility] Comment on above: Performed By: #### A WILL, CBCWD, ICAL, EGFR1, BMPX #### [place] [address] ABS IMMATURE GRANS (IG) 0.04 thou/mm3 Normal 0.00-0.07 [facility] Comment on above: Performed By: #### A ALINE SOLIS, ICAL, EGFR1, BMPX #### [address] [address] ABS LYMPHOCYTES 0.6 thou/mm3 Low 1.0-4.8 [facility] Comment on above: Performed By: #### A BRIANNE SOLISWD, ICAL, EGFR1, BMPX #### [place] [address] ABS MONOCYTES 0.4 thou/mm3 Normal 0.4-1.3 [facility] Comment on above: Performed By: #### A WILL, CBCWD, ICAL, EGFR1, BMPX #### [address] [address] ABS NEUTROPHILS 11.4 thou/mm3 High 1.8-7.7 [facility] Comment on above: Performed By: #### A WILL, CBCWD, ICAL, EGFR1, BMPX #### [place] [address] Basophils/100 WBC (Bld) 0.1 % Normal [facility] Comment on above: Performed By: #### A WILL, CBCWD, ICAL, EGFR1, BMPX #### [address] [address] Eosinophils/100 WBC (Bld) 0.0 % Normal [facility] Comment on above: Performed By: #### A WILL, ALINE, ICAL, EGFR1, BMPX #### [address] [address] Erythrocyte distribution width (RBC) [Ratio] 13.2 % Normal 11.5-14.5 [facility] Comment on above: Performed By: #### A WILL CBCTUAN, ICAL, EGFR1, BMPX #### [address] [address] Hematocrit (Bld) [Volume fraction] 27.8 % Low 37.0-47.0 [facility] Comment on above: Performed By: #### A WILL CBCTUAN, ICAL, EGFR1, BMPX #### [address] [address] Hemoglobin (Bld) [Mass/Vol] 8.8 g/dL Low 12.0-16.0 [facility] Comment on above: Performed By: #### A ALINE SOLIS, ICAL, EGFR1, BMPX #### [address] [address] IMMATURE GRANS (IG) 0.3 % Normal [facility] Comment on above: Performed By: #### A WILL CBCTUAN, ICAL, EGFR1, BMPX #### [address] [address] Lymphocytes/100 WBC (Bld) 4.7 % Normal [facility] Comment on above: Performed By: #### A WILL CBCTUAN, ICAL, EGFR1, BMPX #### [address] [address] MCH (RBC) [Entitic mass] 32.4 pg Normal 26.0-33.0 [facility] Comment on above: Performed By: #### A WILL, CBCWD, ICAL, EGFR1, BMPX #### [address] [address] MCHC (RBC) [Mass/Vol] 31.7 g/dL Low 32.2-35.5 [facility] Comment on above: Performed By: #### A ALINE SOLIS, ICAL, EGFR1, BMPX #### [facility] [address] [place] [address] MCV (RBC) [Entitic vol] 102.2 fL High 81.0-99.0 [facility] Comment on above: Performed By: #### A ALINE SOLIS, ICAL, EGFR1, BMPX #### [facility] [employer] [address] [place] [address] Monocytes/100 WBC (Bld) 3.1 % Normal [facility] Comment on above: Performed By: #### A ALINE SOLIS, ICAL, EGFR1, BMPX #### [address] [id number] Neutrophils/100 WBC (Bld) 91.8 % Normal [facility] Comment on above: Performed By: #### A ALINE SOLIS, ICAL, EGFR1, BMPX #### [facility] [employer] [address] [place] [address] NRBC 0 /100 wbc Normal [facility] Comment on above: Performed By: #### A ALINE SOILS, ICAL, EGFR1, BMPX #### [address] [address] PLATELET 230 thou/mm3 Normal 130-400 [facility] Comment on above: Performed By: #### A ALINE SOLIS, ICAL, EGFR1, BMPX #### [employer] [address] [place] [address] Platelet mean volume (Bld) [Entitic vol] 10.4 fL Normal 9.4-12.4 [facility] Comment on above: Performed By: #### A ALINE SOLIS, ICAL, EGFR1, BMPX #### [facility] [address] [place] [address] RBC 2.72 mill/mm3 Low 4.20-5.40 [facility] Comment on above: Performed By: #### A NION, CBCWD, ICAL, EGFR1, BMPX #### [facility] [address] [place] [address] RDW-SD 49.3 fL High 35.0-45.0 [facility] Comment on above: Performed By: #### A WILL, CBCWD, ICAL, EGFR1, BMPX #### [address] [address] WBC 12.4 thou/mm3 High 4.8-10.8 [facility] Comment on above: Performed By: #### A WILL, CBCTUAN, ICAL, EGFR1, BMPX #### [address] [address] GFR, ESTIMATEDon 09-26-2023 GFR/1.73 sq M.predicted MDRD (S/P/Bld) [Vol rate/Area] 57 mL/min/{1.73_m2} Abnormal >60 [facility] Comment on above: Result Comment: Pedi atric [...] tubular secretion. Performed By: #### A WILL, ALINE, ICAL, EGFR1, BMPX #### [facility] [address] [place] [address] GLUCOSE POCon 09-26-2023 Glucose [Mass/Vol] 287 mg/dL High 70-108 [facility] Comment on above: Performed By: #### A WILL, CBCTUAN, ICAL, EGFR1, BMPX #### [facility] [address] [place] [address] Glucose [Mass/Vol] 329 mg/dL High 70-108 [facility] Comment on above: Performed By: #### A WILL, CBCWD, ICAL, EGFR1, BMPX #### [facility] [address] [place] [address] ANION GAPon 09-25-2023 Anion gap [Moles/Vol] 14.0 mmol/L Normal 8.0-16.0 [facility] Comment on above: Result Comment: ANIO N GAP = Sodium -(Chloride + CO2) Performed By: #### A WILL, CBCWD, ICAL, EGFR1, BMPX #### [facility] [address] [place] [address] BASIC METABOL PANELon 2022 Calcium [Mass/Vol] 8.2 mg/dL Low 8.5-10.5 [facility] Comment on above: Performed By: #### A WILL, CBCWD, ICAL, EGFR1, BMPX #### [facility] [address] [place] [address] Chloride [Moles/Vol] 97 mmol/L Low 98-111 [facility] Comment on above: Performed By: #### A WILL, CBCWD, ICAL, EGFR1, BMPX #### [facility] [address] [place] [address] CO2 [Moles/Vol] 24 mmol/L Normal 23-33 [facility] Comment on above: Performed By: #### A WILL, CBCWD, ICAL, EGFR1, BMPX #### [facility] [address] [place] [address] Creatinine [Mass/Vol] 0.9 mg/dL Normal 0.4-1.2 [facility] Comment on above: Performed By: #### A WILL, CBCWD, ICAL, EGFR1, BMPX #### [facility] [address] [place] [address] Glucose [Mass/Vol] 112 mg/dL High 70-108 [facility] Comment on above: Performed By: #### A NIRANJIT, CBCWD, ICAL, EGFR1, BMPX #### [facility] [address] [place] [address] POTASSIUM WITH REFLEX MG 4.0 meq/L Normal 3.5-5.2 [facility] Comment on above: Result Comment: Low level specimen hemolysis is present as indicated by the interference level index on the Peggy analyzer. The reported K+ level may be falsely increased. If clinically warranted, recollection of the specimen is suggested. Performed By: #### A WILL, BRIANNEWD, ICAL, EGFR1, BMPX #### [facility] [address] [place] [address] Sodium [Moles/Vol] 135 mmol/L Normal 135-145 [facility] Comment on above: Performed By: #### A WILL, CBCTUAN, ICAL, EGFR1, BMPX #### [facility] [address] [place] [address] Urea nitrogen [Mass/Vol] 24 mg/dL High 7-22 [facility] Comment on above: Performed By: #### A WILL, ALINE, ICAL, EGFR1, BMPX #### [address] [address] CBC WITH DIFFERENTIALon 11-0 -2022 ABS BASOPHILS 0.0 thou/mm3 Normal 0.0-0.1 [facility] Comment on above: Performed By: #### C ISAMAR, REJCT #### [address] [address] ABS EOSINOPHILS 0.0 thou/mm3 Normal 0.0-0.4 [facility] Comment on above: Performed By: #### Aida PENN, REJCT #### [address] [address] ABS IMMATURE GRANS (IG) 0.02 thou/mm3 Normal 0.00-0.07 [facility] Comment on above: Performed By: #### C ISAMAR, REJCT #### [address] [address] ABS LYMPHOCYTES 0.9 thou/mm3 Low 1.0-4.8 [facility] Comment on above: Performed By: #### C ISAMAR, REJCT #### [address] [address] ABS MONOCYTES 0.5 thou/mm3 Normal 0.4-1.3 [facility] Comment on above: Performed By: #### C ISAMAR, REJCT #### [facility] [address] [place] [address] ABS NEUTROPHILS 4.9 thou/mm3 Normal 1.8-7.7 [facility] Comment on above: Performed By: #### C ISAMAR, REJCT #### [facility] [address] [place] [address] Basophils/100 WBC (Bld) 0.2 % Normal [facility] Comment on above: Performed By: #### C ISAMAR, REJCT #### [facility] [address] [place] [address] Eosinophils/100 WBC (Bld) 0.0 % Normal [facility] Comment on above: Performed By: #### C ISAMAR, REJCT #### [address] [address] Erythrocyte distribution width (RBC) [Ratio] 13.3 % Normal 11.5-14.5 [facility] Comment on above: Performed By: #### C ISAMAR, REJCT #### [address] [address] Hematocrit (Bld) [Volume fraction] 29.0 % Low 37.0-47.0 [facility] Comment on above: Performed By: #### C ISAMAR, REJCT #### [address] [address] Hemoglobin (Bld) [Mass/Vol] 9.9 g/dL Low 12.0-16.0 [facility] Comment on above: Performed By: #### C ISAMAR, REJCT #### [address] [address] IMMATURE GRANS (IG) 0.3 % Normal [facility] Comment on above: Performed By: #### C ISAMAR, REJCT #### [facility] [address] [place] [address] Lymphocytes/100 WBC (Bld) 13.8 % Normal [facility] Comment on above: Performed By: #### C ISAMAR, REJCT #### [address] [address] MCH (RBC) [Entitic mass] 32.8 pg Normal 26.0-33.0 [facility] Comment on above: Performed By: #### C ISAMAR, REJCT #### [address] [address] MCHC (RBC) [Mass/Vol] 34.1 g/dL Normal 32.2-35.5 [facility] Comment on above: Performed By: #### C ISAMAR, REJCT #### [address] [address] MCV (RBC) [Entitic vol] 96.0 fL Normal 81.0-99.0 [facility] Comment on above: Performed By: #### Aida PENN, REJCT #### [address] [address] Monocytes/100 WBC (Bld) 8.7 % Normal [facility] Comment on above: Performed By: #### Aida PENN, REJCT #### [address] [address] Neutrophils/100 WBC (Bld) 77.0 % Normal [facility] Comment on above: Performed By: #### Aida PENN, REJCT #### [address] [address] NRBC 0 /100 wbc Normal [facility] Comment on above: Performed By: #### Aida PENN, REJCT #### [address] [address] PLATELET 185 thou/mm3 Normal 130-400 [facility] Comment on above: Performed By: #### C ISAMAR, REJCT #### [address] [address] Platelet mean volume (Bld) [Entitic vol] 10.8 fL Normal 9.4-12.4 [facility] Comment on above: Performed By: #### C ISAMAR, REJCT #### [address] [address] RBC 3.02 mill/mm3 Low 4.20-5.40 [facility] Comment on above: Performed By: #### C ISAMAR, REJCT #### [facility] [address] [place] [address] RDW-SD 46.2 fL High 35.0-45.0 [facility] Comment on above: Performed By: #### C ISAMAR, REJCT #### [facility] [address] [place] [address] WBC 6.3 thou/mm3 Normal 4.8-10.8 [facility] Comment on above: Performed By: #### C ISAMAR, REJCT #### [facility] [address] [place] [address] EKG 12-LEADon 09-25-2023 EKG 12-LEAD 103 [phone] - Atrial fibrillation with rapid ventricular response with premature ventricular or aberrantly conducted complexes Septal infarct , age undetermined ST & T wave abnormality, consider inferior ischemia Abnormal ECG No previous ECGs available Confirmed by JOHNIE HACKETT ([id number]) on 09/25/2023 7:28:02 AM [email or web address] T=[id number]&Date=03-02-20 23&Time=[id number] &TestType=ECG&Site=3&Outp utType=PDF&Ext=PDF Normal [facility] FLUORO FOR SURGICAL PROCEDUR ESon 09-25-2023 FLUORO FOR SURGICAL PROCEDURES Radiology exam is complete. No Radiologist dictation. Please follow up with ordering provider. Normal [facility] GFR, ESTIMATEDon 09-25-2023 GFR/1.73 sq M.predicted MDRD (S/P/Bld) [Vol rate/Area] mL/min/{1.73_m2} Normal >60 [facility] Comment on above: Result Comment: Seth atric [...] A NION, CBCWD, ICAL, EGFR1, BMPX #### [facility] [address] [place] [address] REJECTION NOTIFICATIONon REJECTION: REASON see below Normal [facility] Comment on above: Result Comment: Unab le to perform testing;Specimen was Hemolyzed Performed By: #### C BCWD, REJCT #### [facility] [address] [place] [address] REJECTION: TEST chems Normal [facility] Comment on above: Performed By: #### C BCWD, REJCT #### [facility] [address] [place] [address] .eGFRon 07-12-2023 Estimated GFR 52 mL/min/1.73m? Low >=60 [facility] Comment on above: Result Comment: [facility] have implemented the eGFR calculation [...] years Performed By: #### E GFR #### [facility] [address] [place] [address] ABO/Rhon 07-12-2023 ABO/Rh SD 08/02/23 ABO/Rh: A POS Normal [facility] Comment on above: Performed By: #### A BLAISE #### [facility] (DEFAULT) [address] [place] [address] [address] ABSC Autoon 07-12-2023 ABSC Auto Negative Normal [facility] Comment on above: Performed By: #### A SA #### [address] [address] CBC w/ Diffon 07-12-2023 Erythrocyte distribution width (RBC) [Ratio] 12.8 % Normal 11.6-14.8 [facility] Comment on above: Performed By: #### C BC #### [address] [address] Hematocrit (Bld) [Volume fraction] 40.7 % Normal 36.0-46.0 [facility] Comment on above: Performed By: #### C BC #### [address] [address] Hemoglobin (Bld) [Mass/Vol] 14.1 g/dL Normal 12.0-16.0 [facility] Comment on above: Performed By: #### C BC #### [address] [address] MCH (RBC) [Entitic mass] 34.6 pg Normal 27.0-35.0 [facility] Comment on above: Performed By: #### C BC #### [address] [address] MCHC 34.6 % Normal 31.0-37.0 [facility] Comment on above: Performed By: #### C BC #### [address] [address] MCV (RBC) [Entitic vol] 100.0 fL Normal 80.0-100.0 [facility] Comment on above: Performed By: #### C BC #### [address] [address] Platelet 215 x10*3/mcL Normal 150-450 [facility] Comment on above: Performed By: #### C BC #### [address] [address] Platelet mean volume (Bld) [Entitic vol] 8.4 fL Normal 6.7-10.6 [facility] Comment on above: Performed By: #### C BC #### [address] [address] RBC 4.07 x10*6/mcL Normal 3.80-5.20 [facility] Comment on above: Performed By: #### C BC #### [address] [address] WBC 6.1 x10*3/mcL Normal 4.5-11.0 [facility] Comment on above: Performed By: #### C BC #### [address] [address] CMPon 07-12-2023 Albumin [Mass/Vol] 4.1 g/dL Normal 3.2-4.9 [facility] Comment on above: Performed By: #### C OMP #### [address] [address] Albumin/Globulin [Mass ratio] 1.3 {ratio} Normal 1.1-2.2 [facility] Comment on above: Performed By: #### C OMP #### [address] [address] Alk Phos 37 IU/L Normal 32-91 [facility] Comment on above: Performed By: #### C OMP #### [address] [address] ALT [Catalytic activity/Vol] 17 U/L Normal 14-54 [facility] Comment on above: Performed By: #### C OMP #### [address] [address] Anion gap [Moles/Vol] 8 mmol/L Normal 7-17 [facility] Comment on above: Performed By: #### C OMP #### [address] [place] [address] AST [Catalytic activity/Vol] 23 U/L Normal 15-41 [facility] Comment on above: Performed By: #### C OMP #### [address] [place] [address] Bili Total 0.7 mg/dL Normal 0.3-1.2 [facility] Comment on above: Performed By: #### C OMP #### [address] [place] [address] Calcium [Mass/Vol] 9.6 mg/dL Normal 8.5-10.3 [facility] Comment on above: Performed By: #### C OMP #### [address] [place] [address] Chloride [Moles/Vol] 102 mmol/L Normal 98-110 [facility] Comment on above: Performed By: #### C OMP #### [address] [place] [address] CO2 [Moles/Vol] 31 mmol/L Normal 22-32 [facility] Comment on above: Performed By: #### C OMP #### [address] [place] [address] Creatinine [Mass/Vol] 1.09 mg/dL High 0.44-1.03 [facility] Comment on above: Performed By: #### C OMP #### [address] [place] [address] Glucose [Mass/Vol] 154 mg/dL High 70-99 [facility] Comment on above: Performed By: #### C OMP #### [address] [place] [address] Potassium [Moles/Vol] 3.4 mmol/L Normal 3.4-4.8 [facility] Comment on above: Performed By: #### C OMP #### [address] [place] [address] Protein [Mass/Vol] 7.3 g/dL Normal 6.5-8.1 [facility] Comment on above: Performed By: #### C OMP #### [address] [address] Sodium [Moles/Vol] 138 mmol/L Normal 133-142 [facility] Comment on above: Performed By: #### C OMP #### [address] [address] Urea nitrogen [Mass/Vol] 22 mg/dL Normal 8-26 [facility] Comment on above: Performed By: #### C OMP #### [address] [address] Urea nitrogen/Creatinine [Mass ratio] 20.2 mg/mg High 10.0-20.0 [facility] Comment on above: Performed By: #### C OMP #### [address] [address] Diff Autoon 07-12-2023 Baso Absolute 0.0 x10*3/mcL Normal 0.0-0.2 [facility] Comment on above: Performed By: #### . Automated Diff #### [address] [address] Basophils/100 WBC (Bld) 0.6 % Normal 0.0-1.5 [facility] Comment on above: Performed By: #### . Automated Diff #### [address] [address] Eos Absolute 0.1 x10*3/mcL Normal 0.0-0.4 [facility] Comment on above: Performed By: #### . Automated Diff #### [address] [address] Eosinophils/100 WBC (Bld) 2.3 % Normal 0.0-5.4 [facility] Comment on above: Performed By: #### . Automated Diff #### [address] [address] Lymph Absolute 1.3 x10*3/mcL Normal 1.0-4.8 [facility] Comment on above: Performed By: #### . Automated Diff #### [address] [address] Lymphocytes/100 WBC (Bld) 21.0 % Low 27.2-40.8 [facility] Comment on above: Performed By: #### . Automated Diff #### [address] [address] Sebastian Absolute 0.6 x10*3/mcL Normal 0.1-1.1 [facility] Comment on above: Performed By: #### . Automated Diff #### [address] [address] Monocytes/100 WBC (Bld) 9.5 % Normal 3.7-11.9 [facility] Comment on above: Performed By: #### . Automated Diff #### [address] [address] Neutro Absolute 4.0 x10*3/mcL Normal 1.8-7.7 [facility] Comment on above: Performed By: #### . Automated Diff #### [address] [address] Neutro Auto 66.6 % Normal 47.2-70.8 [facility] Comment on above: Performed By: #### . Automated Diff #### [address] [address] HbA1c w/Rflx Fructosamineon 07-12-2023 Glucose [Mass/Vol] 148 mg/dL High 68-114 [facility] Comment on above: Result Comment: Math ematical Calc approx. The mean gluc equivalency of A1c Performed By: #### C [id number] #### [address] [address] Hgb A1c 6.8 % A1c High 4.0-5.6 [facility] Comment on above: Result Comment: Refe rence Range: 4.0 - 5.6 % Normal 5.7 - 6.4 % Pre-Diabetes > 6.5 % Diabetes Performed By: #### C [id number] #### [facility] [address] [place] [address] T3, TOTAL (TRIIODOTHYRONINE) on 02-11-2023 T3, TOTAL 87 ng/dL Normal 71-180 [facility] Comment on above: Performed By: #### B MP, LIPID, TSH, ALT #### [facility] [address] [place] [address] Dr. Bj Jason T3, TOTAL (TRIIODOTHYRONINE) on 02-10-2023 T3, TOTAL (TRIIODOTHYRONINE) 87 ng/dL 71-180 ng/dL [employer] Other T3, TOTAL (TRIIODOTHYRONINE) see note [employer] Other Alanine Aminotransferaseon 0 02-08-2023 ALT [Catalytic activity/Vol] 24 U/L Normal 14-59 [employer] Other Comment on above: Performed By: #### B MP, LIPID, TSH, ALT #### [facility] [address] [place] [address] Dr. Bj Jason Alanine Aminotransferase see note [employer] Other CBC AUTO DIFFon 02-08-2023 BASO # 0.0 103/ul Normal 0.0-0.1 [facility] Comment on above: Performed By: #### B MP, LIPID, TSH, ALT #### [facility] [address] [place] [address] Dr. Bj Jason Basophils/100 WBC (Bld) 0.3 % Normal 0.2-2.0 [facility] Comment on above: Performed By: #### B MP, LIPID, TSH, ALT #### [facility] [address] [place] [address] Dr. Bj Jason EO # 0.1 103/ul Normal 0.0-0.7 [facility] Comment on above: Performed By: #### B MP, LIPID, TSH, ALT #### [facility] [address] [place] [address] Dr. Bj Jason Eosinophils/100 WBC (Bld) 0.6 % Critically low 0.9-7.0 [facility] Comment on above: Performed By: #### B MP, LIPID, TSH, ALT #### [facility] [address] [place] [address] Dr. Bj Jason Erythrocyte distribution width (RBC) [Ratio] 14.3 % Normal 11.0-15.0 [facility] Comment on above: Performed By: #### B MP, LIPID, TSH, ALT #### [facility] [address] [place] [address] Dr. Bj Jason Hematocrit (Bld) [Volume fraction] 43.3 % Normal 36.0-48.0 [facility] Comment on above: Performed By: #### B MP, LIPID, TSH, ALT #### [facility] [address] [place] [address] Dr. Bj Jason Hemoglobin (Bld) [Mass/Vol] 14.2 g/dL Normal 12.0-16.0 [facility] Comment on above: Performed By: #### B MP, LIPID, TSH, ALT #### [facility] [address] [place] [address] Dr. Bj Jason IG # 0.04 10e3/ul Critically high 0.00-0.03 [facility] Comment on above: Performed By: #### B MP, LIPID, TSH, ALT #### [facility] [address] [place] [address] Dr. Bj Jason IG % 0.3 % Normal 0.0-0.5 [facility] Comment on above: Performed By: #### B MP, LIPID, TSH, ALT #### [facility] [address] [place] [address] Dr. Bj Jason LYMPH # 1.7 103/ul Normal 1.2-3.8 [facility] Comment on above: Performed By: #### B MP, LIPID, TSH, ALT #### [facility] [address] [place] [address] Dr. Bj Jason Lymphocytes/100 WBC (Bld) 15.0 % Critically low 20.5-60.0 [facility] Comment on above: Performed By: #### B MP, LIPID, TSH, ALT #### [facility] [address] [place] [address] [address] Bj Jason MANUAL DIFF REQ NO Normal [facility] Comment on above: Performed By: #### B MP, LIPID, TSH, ALT #### [facility] [address] [place] [address] Dr. Bj Jason MCH (RBC) [Entitic mass] 32.1 pg Normal 26.7-34.0 [facility] Comment on above: Performed By: #### B MP, LIPID, TSH, ALT #### [facility] [address] [place] [address] Dr. Bj Jason MCHC (RBC) [Mass/Vol] 32.8 g/dL Normal 29.9-35.2 [facility] Comment on above: Performed By: #### B MP, LIPID, TSH, ALT #### [facility] [address] [place] [address] Dr. Bj Jason MCV (RBC) [Entitic vol] 98.0 fL Normal 81.0-99.0 [facility] Comment on above: Performed By: #### B MP, LIPID, TSH, ALT #### [facility] [address] [place] [address] Dr. Bj Jason MONO # 1.0 103/ul Critically high 0.3-0.8 [facility] Comment on above: Performed By: #### B MP, LIPID, TSH, ALT #### [facility] [address] [place] [address] Dr. Bj Jason Monocytes/100 WBC (Bld) 8.8 % Normal 1.7-12.0 [facility] Comment on above: Performed By: #### B MP, LIPID, TSH, ALT #### [facility] [address] [place] [address] Dr. Bj Jason NEUT # 8.6 103/ul Critically high 1.4-6.5 [facility] Comment on above: Performed By: #### B MP, LIPID, TSH, ALT #### [facility] [address] [address] [address] Bj Jason Neutrophils/100 WBC (Bld) 75.0 % Normal 43.0-75.0 [facility] Comment on above: Performed By: #### B MP, LIPID, TSH, ALT #### [facility] [address] [address] [address] Bj Jason Platelet mean volume (Bld) [Entitic vol] 9.4 fL Critically low 9.5-13.5 [facility] Comment on above: Performed By: #### B MP, LIPID, TSH, ALT #### [facility] [address] [address] [address] Bj Jason PLT 216 103/ul Normal 150-450 [facility] Comment on above: Performed By: #### B MP, LIPID, TSH, ALT #### [facility] [address] [place] [address] Dr. Bj Jason RBC 4.42 106/ul Normal 4.20-5.40 [facility] Comment on above: Performed By: #### B MP, LIPID, TSH, ALT #### [facility] [address] [address] [address] Bj Jason WBC 11.5 103/ul Critically high 4.0-11.0 [facility] Comment on above: Performed By: #### B MP, LIPID, TSH, ALT #### [facility] [address] [place] [address] Dr. Bj Jason FREE T4on 02-08-2023 Free T4 [Mass/Vol] 0.88 ng/dL Normal 0.76-1.46 [facility] Comment on above: Performed By: #### F T4 #### [facility] [address] [place] [address] Dr. Bj Jason Free T4 (Free Thyroxine)on 0 02-08-2023 Free T4 (Free Thyroxine) [employer] Other GLYCOHEMOGLOBIN A1Con 2022 [facility] RECOMMENDATION SEE BELOW Normal [facility] Comment on above: Result Comment: ADA RECOMMENDED LIMIT 4.0 - 6.0 ADA THERAPEUTIC TARGET < 7.0 ACTION SUGGESTED > 7.0 Performed By: #### B MP, LIPID, TSH, ALT #### [facility] [address] [address] [address] Bj Jason Glucose [Mass/Vol] 146 mg/dL Normal [facility] Comment on above: Performed By: #### B MP, LIPID, TSH, ALT #### [facility] [address] [address] [address] Bj Jason HbA1c (Bld) [Mass fraction] 6.7 % Critically high 4.5-6.2 [facility] Comment on above: Performed By: #### B MP, LIPID, TSH, ALT #### [facility] [address] [address] [address] Bj Jason LIPID PROFILEon 02-08-2023 CHOL-HDL RATIO NORM SEE BELOW Normal [facility] Comment on above: Result Comment: 3.3 - 4.4 LOW RISK 4.4 - 7.1 AVERAGE RISK 7.1 - 11.0 MODERATE RISK >11.0 HIGH RISK Performed By: #### B MP, LIPID, TSH, ALT #### [facility] [address] [address] [address] Bj Jason Cholesterol [Mass/Vol] 155 mg/dL Normal <=200 [facility] Comment on above: Performed By: #### B MP, LIPID, TSH, ALT #### [facility] [address] [address] [address] Bj Jason Cholesterol in HDL [Mass/Vol] 49 mg/dL Normal 40-60 [facility] Comment on above: Performed By: #### B MP, LIPID, TSH, ALT #### [facility] [address] [address] [address] Bj Jason Cholesterol in LDL [Mass/Vol] 79.0 mg/dL Normal [facility] Comment on above: Performed By: #### B MP, LIPID, TSH, ALT #### [facility] [address] [address] [address] Bj Jason Cholesterol.total/Chol esterol in HDL [Mass ratio] 3.2 {ratio} Normal [facility] Comment on above: Performed By: #### B MP, LIPID, TSH, ALT #### [facility] [address] [address] [address] Bj Jason HDL NORMAL > or = 60 mg/dl - LO W CARDIOVASCULAR RISK <40 mg/dl - HIGH CARDIOVASCULAR RISK Normal [facility] Comment on above: Performed By: #### B MP, LIPID, TSH, ALT #### [facility] [address] [address] [address] Bj Jason LDL CALC NORMAL SEE BELOW Normal [facility] Comment on above: Result Comment: <100 mg/dl OPTIMAL 100 - 129 mg/dl NEAR OR ABOVE OPTIMAL 130 - 159 mg/dl BORDERLINE HIGH 160 - 189 mg/dl HIGH >190 mg/dl VERY HIGH Performed By: #### B MP, LIPID, TSH, ALT #### [facility] [address] [address] [address] Bj Jason Triglyceride [Mass/Vol] 135 mg/dL Normal <=150 [facility] Comment on above: Performed By: #### B MP, LIPID, TSH, ALT #### [facility] [address] [address] [address] Bj Jason VLDL CALC 27.0 mg/dL Normal [facility] Comment on above: Performed By: #### B MP, LIPID, TSH, ALT #### [facility] [address] [address] [address] Bj Jason MICROALBUMIN, RAND URon 03-2 mALB <1.3 Normal <=30.0 [facility] Comment on above: Performed By: #### M ALBR #### [facility] [address] [address] [address] Bj Jason PROF CHEM 8 (BAS METB)on Anion gap [Moles/Vol] 10.8 mmol/L Normal [facility] Comment on above: Performed By: #### B MP, LIPID, TSH, ALT #### [facility] [address] [place] [address] Dr. Bj Jason Calcium [Mass/Vol] 9.6 mg/dL Normal 8.5-10.1 [facility] Comment on above: Performed By: #### B MP, LIPID, TSH, ALT #### [facility] [address] [place] [address] Dr. Bj Jason Chloride [Moles/Vol] 101 mmol/L Normal 98-107 [facility] Comment on above: Performed By: #### B MP, LIPID, TSH, ALT #### [facility] [address] [place] [address] Dr. Bj Jason CO2 [Moles/Vol] 31.8 mmol/L Normal 21.0-32.0 [facility] Comment on above: Performed By: #### B MP, LIPID, TSH, ALT #### [facility] [address] [place] [address] Dr. Bj Jason Creatinine [Mass/Vol] 1.20 mg/dL Critically high 0.55-1.02 [facility] Comment on above: Performed By: #### B MP, LIPID, TSH, ALT #### [facility] [address] [place] [address] Dr. Bj Jason EGFR-AF SAO TOMEAN 53 mL/min/1.73m2 Critically low >=60 [facility] Comment on above: Performed By: #### B MP, LIPID, TSH, ALT #### [facility] [address] [place] [address] Dr. Bj Jason EGFR-NON AF SAO TOMEAN 43 mL/min/1.73m2 Critically low >=60 [facility] Comment on above: Performed By: #### B MP, LIPID, TSH, ALT #### [facility] [address] [place] [address] Dr. Bj Jason Glucose [Mass/Vol] 124 mg/dL Critically high 74-106 [facility] Comment on above: Performed By: #### B MP, LIPID, TSH, ALT #### [facility] [address] [place] [address] Dr. Bj Jason Potassium [Moles/Vol] 3.6 mmol/L Normal 3.5-5.1 [facility] Comment on above: Performed By: #### B MP, LIPID, TSH, ALT #### [facility] [address] [address] [address] Bj Jason Sodium [Moles/Vol] 140 mmol/L Normal 136-145 [facility] Comment on above: Performed By: #### B MP, LIPID, TSH, ALT #### [facility] [address] [address] [address] Bj Jason Urea nitrogen [Mass/Vol] 27.0 mg/dL Critically high 7.0-18.0 [facility] Comment on above: Performed By: #### B MP, LIPID, TSH, ALT #### [facility] [address] [address] [address] Bj Jason Urea nitrogen/Creatinine [Mass ratio] 22.5 mg/mg Normal [facility] Comment on above: Performed By: #### B MP, LIPID, TSH, ALT #### [facility] [address] [address] [address] Bj Jason TSHon 02-08-2023 TSH 0.018 uIU/mL Critically low 0.358-3.74 0 [facility] Comment on above: Performed By: #### B MP, LIPID, TSH, ALT #### [facility] [address] [address] [address] Bj Jason XR HIP RT 2 [...] JENELLE ACEVES Date: 2023-01-26 17:37 Normal [facility] XR HIP RT 2 3V W PELVIS [employer] Other MG MAMM SCREEN 3D LILLIAN CADon 01-08-2023 MG MAMM SCREEN 3D LILLIAN CAD Patient: FATUMA FAIR Exam Date: 01/08/2023 : 1945 Gender:F Ordering : DR HARSHA ANDREW D.O. Admission #: [id number] Family : DR JUN MARTÍNEZ . Order #: [id number] CLICK HERE TO VIEW EXAM RADIOLOGY REPORT [...] breast cancer at age 60. LOCATION: [facility] BREAST COMPOSITION: Heterogeneously dense,which may [...] M.D. on 01/12/2023 at 14:52 Normal [facility] CALCIUMon 12-11-2022 Calcium [Mass/Vol] 9.5 mg/dL Normal 8.5-10.1 [facility] Comment on above: Performed By: #### B MP, LIPID, TSH, ALT #### [facility] [address] [address] [address] Bj Jason CREATININEon 12-11-2022 Creatinine [Mass/Vol] 1.06 mg/dL Critically high 0.55-1.02 [facility] Comment on above: Performed By: #### B MP, LIPID, TSH, ALT #### [facility] [address] [address] [address] Bj Jason EGFR-AF SAO TOMEAN >60 Normal >=60 [facility] Comment on above: Performed By: #### B MP, LIPID, TSH, ALT #### [facility] [address] [address] [address] Bj Jason EGFR-NON AF SAO TOMEAN 50 mL/min/1.73m2 Critically low >=60 [facility] Comment on above: Performed By: #### B MP, LIPID, TSH, ALT #### [facility] [address] [address] [address] Bj Jason GLYCOHEMOGLOBIN A1Con 2021 ADA RECOMMENDATION SEE BELOW Normal [facility] Comment on above: Result Comment: ADA RECOMMENDED LIMIT 4.0 - 6.0 ADA THERAPEUTIC TARGET < 7.0 ACTION SUGGESTED > 7.0 Performed By: #### B MP, LIPID, TSH, ALT #### [facility] [address] [address] [address] Bj Jason Glucose [Mass/Vol] 160 mg/dL Normal [facility] Comment on above: Performed By: #### B MP, LIPID, TSH, ALT #### [facility] [address] [address] [address] Bj Jason HbA1c (Bld) [Mass fraction] 7.2 % Critically high 4.5-6.2 [facility] Comment on above: Performed By: #### B MP, LIPID, TSH, ALT #### [facility] [address] [address] [address] Bj Jason TSHon 09-30-2022 TSH 1.819 uIU/mL Normal 0.358-3.74 0 [facility] Comment on above: Performed By: #### T SH #### [facility] [address] [place] [address] Dr. Bj Jason CALCIUMon 08-07-2022 Calcium [Mass/Vol] 9.2 mg/dL Normal 8.5-10.1 [facility] Comment on above: Performed By: #### B MP, LIPID, TSH, ALT #### [facility] [address] [place] [address] Dr. Bj Jason CREATININEon 08-07-2022 Creatinine [Mass/Vol] 1.12 mg/dL Critically high 0.55-1.02 [facility] Comment on above: Performed By: #### B MP, LIPID, TSH, ALT #### [facility] [address] [place] [address] Dr. Bj Jason EGFR-AF SAO TOMEAN 57 mL/min/1.73m2 Critically low >=60 [facility] Comment on above: Performed By: #### B MP, LIPID, TSH, ALT #### [facility] [address] [place] [address] Dr. Bj Jason EGFR-NON AF SAO TOMEAN 47 mL/min/1.73m2 Critically low >=60 [facility] Comment on above: Performed By: #### B MP, LIPID, TSH, ALT #### [facility] [address] [place] [address] Dr. Bj Jason GLYCOHEMOGLOBIN A1Con 2021 ADA RECOMMENDATION SEE BELOW Normal [facility] Comment on above: Result Comment: ADA RECOMMENDED LIMIT 4.0 - 6.0 ADA THERAPEUTIC TARGET < 7.0 ACTION SUGGESTED > 7.0 Performed By: #### A 1C #### [facility] [address] [place] [address] Dr. Bj Jason Glucose [Mass/Vol] 146 mg/dL Normal [facility] Comment on above: Performed By: #### A 1C #### [facility] [address] [place] [address] Dr. Bj Jason HbA1c (Bld) [Mass fraction] 6.7 % Critically high 4.5-6.2 [facility] Comment on above: Performed By: #### A 1C #### [facility] [address] [place] [address] Dr. Bj Jason ECHOCARDIO M/2D COMPLETEon 0 05-12-2022 ECHOCARDIO M/2D COMPLETE Patient: FATUMA FAIR Exam Date: 05/12/2022 : 1945 Gender:F Ordering : DR HARSHA ANDREW D.O. Admission #: [id number] Family : Order #: [id number] CLICK HERE TO VIEW EXAM ECHOCARDIOGRAM REPORT [...] Area(A4C): 19.80 cm2 Left Atrium Systolic Volume(A2C): 23043 mm3 Left Atrium Systolic Volume(A4C): 56144 mm3 Mitral Valve MV E to A Ratio: 0.80 Deceleration Mckean: 3840 mm/s2 Mitral Valve A-Wave Peak Velocity: 121.00 cm/s Mitral Valve E-Wave Peak Velocity: 91.80 cm/s Right Ventricle RV Internal Diastolic Dimension: 2.95 cm Aorta AO Root Diam: 3.00 cm Aortic Valve AoV Area (Peak Agueda): 2.18 cm2 Deceleration Mckean: 1410 mm/s2 Pressure Half-Time: 736 ms Peak [...] Light M.D. on 05/13/2022 at 19:26 Normal [facility] XR TSPINE 2 VIEWSon 05-05-20 XR [...] CHING MAHMOOD Date: 2022-05-05 13:09 Normal [facility] XR CHEST 2 Von 05-04-2022 [...] SAMARA FELTON Date: 2022-05-04 14:58 Normal [facility] XR LSPINE 2_3 VIEWSon 2021 [...] KEERTHI RAMIREZ Date: 2022-05-04 21:52 Normal [facility] CBC AUTO DIFFon 04-29-2022 BASO # 0.1 103/ul Normal 0.0-0.1 [facility] Comment on above: Performed By: #### C BC #### [facility] [address] [place] [address] Dr. Bj Jason Basophils/100 WBC (Bld) 0.9 % Normal 0.2-2.0 [facility] Comment on above: Performed By: #### C BC #### [facility] [address] [address] [address] Bj Jason EO # 0.2 103/ul Normal 0.0-0.7 [facility] Comment on above: Performed By: #### C BC #### [facility] [address] [place] [address] Dr. Bj Jason Eosinophils/100 WBC (Bld) 2.4 % Normal 0.9-7.0 [facility] Comment on above: Performed By: #### C BC #### [facility] [address] [place] [address] Dr. Bj Jason Erythrocyte distribution width (RBC) [Ratio] 12.7 % Normal 11.0-15.0 [facility] Comment on above: Performed By: #### C BC #### [facility] [address] [place] [address] Dr. Bj Jason Hematocrit (Bld) [Volume fraction] 41.7 % Normal 36.0-48.0 [facility] Comment on above: Performed By: #### C BC #### [facility] [address] [place] [address] Dr. Bj Jason Hemoglobin (Bld) [Mass/Vol] 14.0 g/dL Normal 12.0-16.0 [facility] Comment on above: Performed By: #### C BC #### [facility] [address] [place] [address] Dr. Bj Jason IG # 0.02 10e3/ul Normal 0.00-0.03 [facility] Comment on above: Performed By: #### C BC #### [facility] [address] [place] [address] Dr. jB Jason IG % 0.3 % Normal 0.0-0.5 [facility] Comment on above: Performed By: #### C BC #### [facility] [address] [place] [address] Dr. Bj Jason LYMPH # 1.6 103/ul Normal 1.2-3.8 [facility] Comment on above: Performed By: #### C BC #### [facility] [address] [place] [address] Dr. Bj Jason Lymphocytes/100 WBC (Bld) 20.6 % Normal 20.5-60.0 [facility] Comment on above: Performed By: #### C BC #### [facility] [address] [place] [address] Dr. Bj Jason MANUAL DIFF REQ NO Normal [facility] Comment on above: Performed By: #### C BC #### [facility] [address] [place], [place] [id number] Dr. Bj Jason MCH (RBC) [Entitic mass] 31.3 pg Normal 26.7-34.0 [facility] Comment on above: Performed By: #### C BC #### [facility] [address] [place] [address] Dr. Bj Jason MCHC (RBC) [Mass/Vol] 33.6 g/dL Normal 29.9-35.2 [facility] Comment on above: Performed By: #### C BC #### [facility] [address] [place] [address] Dr. Bj Jason MCV (RBC) [Entitic vol] 93.3 fL Normal 81.0-99.0 [facility] Comment on above: Performed By: #### C BC #### [facility] [address] [place] [address] Dr. Bj Jason MONO # 0.7 103/ul Normal 0.3-0.8 [facility] Comment on above: Performed By: #### C BC #### [facility] [address] [place] [address] Dr. Bj Jason Monocytes/100 WBC (Bld) 9.3 % Normal 1.7-12.0 [facility] Comment on above: Performed By: #### C BC #### [facility] [address] [place] [address] Dr. Bj Jason NEUT # 5.2 103/ul Normal 1.4-6.5 [facility] Comment on above: Performed By: #### C BC #### [facility] [address] [place] [address] Dr. Bj Jason Neutrophils/100 WBC (Bld) 66.5 % Normal 43.0-75.0 [facility] Comment on above: Performed By: #### C BC #### [facility] [address] [place] [address] Dr. Bj Jason Platelet mean volume (Bld) [Entitic vol] 10.9 fL Normal 9.5-13.5 [facility] Comment on above: Performed By: #### C BC #### [facility] [address] [place] [address] Dr. Bj Jason PLT 223 103/ul Normal 150-450 [facility] Comment on above: Performed By: #### C BC #### [facility] [address] [place] [address] Dr. Bj Jason RBC 4.47 106/ul Normal 4.20-5.40 [facility] Comment on above: Performed By: #### C BC #### [facility] [address] [address] [address] Bj Jason WBC 7.9 103/ul Normal 4.0-11.0 [facility] Comment on above: Performed By: #### C BC #### [facility] [address] [place] [address] Dr. Bj Jason PROF CHEM 8 (BAS METB)on Anion gap [Moles/Vol] 12.0 mmol/L Normal [facility] Comment on above: Performed By: #### B MP, LIPID, TSH, ALT #### [facility] [address] [place] [address] Dr. Bj Jason Calcium [Mass/Vol] 9.5 mg/dL Normal 8.5-10.1 [facility] Comment on above: Performed By: #### B MP, LIPID, TSH, ALT #### [facility] [address] [place] [address] Dr. Bj Jason Chloride [Moles/Vol] 101 mmol/L Normal 98-107 [facility] Comment on above: Performed By: #### B MP, LIPID, TSH, ALT #### [facility] [address] [place] [address] Dr. Bj Jason CO2 [Moles/Vol] 29.9 mmol/L Normal 21.0-32.0 [facility] Comment on above: Performed By: #### B MP, LIPID, TSH, ALT #### [facility] [address] [place] [address] Dr. Bj Jason Creatinine [Mass/Vol] 1.12 mg/dL Critically high 0.55-1.02 [facility] Comment on above: Performed By: #### B MP, LIPID, TSH, ALT #### [facility] [address] [address] [address] Bj Jason EGFR-AF SAO TOMEAN 57 mL/min/1.73m2 Critically low >=60 [facility] Comment on above: Performed By: #### B MP, LIPID, TSH, ALT #### [facility] [address] [address] [address] Bj Jason EGFR-NON AF SAO TOMEAN 47 mL/min/1.73m2 Critically low >=60 [facility] Comment on above: Performed By: #### B MP, LIPID, TSH, ALT #### [facility] [address] [place] [address] Dr. Bj Jason Glucose [Mass/Vol] 106 mg/dL Normal 74-106 [facility] Comment on above: Performed By: #### B MP, LIPID, TSH, ALT #### [facility] [address] [place] [address] Dr. Bj Jason Potassium [Moles/Vol] 3.9 mmol/L Normal 3.5-5.1 [facility] Comment on above: Performed By: #### B MP, LIPID, TSH, ALT #### [facility] [address] [place] [address] Dr. Bj Jason Sodium [Moles/Vol] 139 mmol/L Normal 136-145 [facility] Comment on above: Performed By: #### B MP, LIPID, TSH, ALT #### [facility] [address] [place] [address] Dr. Bj Jason Urea nitrogen [Mass/Vol] 25.0 mg/dL Critically high 7.0-18.0 [facility] Comment on above: Performed By: #### B MP, LIPID, TSH, ALT #### [facility] [address] [place] [address] Dr. Bj Jason Urea nitrogen/Creatinine [Mass ratio] 22.3 mg/mg Normal [facility] Comment on above: Performed By: #### B MP, LIPID, TSH, ALT #### [facility] [address] [place] [address] Dr. Bj Jason TSHon 04-29-2022 TSH 2.953 uIU/mL Normal 0.358-3.74 0 [facility] Comment on above: Performed By: #### B MP, LIPID, TSH, ALT #### [facility] [address] [address] [address] Bj Jason TSH RANGE SEE BELOW Normal [facility] Comment on above: Result Comment: <0.3 4 UIU/ml HYPERTHYROID 0.34-5.60 UIU/ml EUTHYROID >5.60 UIU/ml HYPOTHYROID Performed By: #### B MP, LIPID, TSH, ALT #### [facility] [address] [address] [address] Bj Jason GLYCOHEMOGLOBIN A1Con 2021 ADA RECOMMENDATION ADA THERAPEUTIC TARG ET 6.0 - 7.0 ACTION SUGGESTED > 7.0 Normal [facility] Comment on above: Performed By: #### B MP, LIPID, TSH, ALT #### [facility] [address] [address] [address] Bj Jason Glucose [Mass/Vol] 148 mg/dL Normal [facility] Comment on above: Performed By: #### B MP, LIPID, TSH, ALT #### [facility] [address] [address] [address] Bj Jason HbA1c (Bld) [Mass fraction] 6.8 % Critically high <=6.0 [facility] Comment on above: Performed By: #### B MP, LIPID, TSH, ALT #### [facility] [address] [place] [address] Dr. Bj Jason MICROALBUMIN, RAND URon 04- mALB <1.3 Normal <=30.0 [facility] Comment on above: Performed By: #### M ALBR #### [facility] [address] [place] [address] Dr. Bj Jason Vital Signs Date Time Vital Sign Value Performing Clinician Facility 08-01-2025 10:36-0400 Body height 162.56 cm Harsha Andrew DO Work Phone: [facility] 08-01-2025 10:36-0400 Body mass index (BMI) [Ratio] 22.6 kg/m2 Harsha Ball DO Work Phone: [facility] 08-01-2025 10:36-0400 Body weight 59.64 kg Harsha Ball DO Work Phone: [facility] 08-01-2025 10:36-0400 Diastolic blood pressure 89 mm[Hg] Harsha Ball DO Work Phone: [facility] 08-01-2025 10:36-0400 Heart rate 74 /min Harsha Ball DO Work Phone: [facility] 08-01-2025 10:36-0400 Respiratory rate 12 /min Harsha Ball DO Work Phone: [facility] 08-01-2025 10:36-0400 Systolic blood pressure 139 mm[Hg] Harsha Ball DO Work Phone: [facility] 07-06-2025 14:16-0400 Body height 162.56 cm Harsha Ball DO Work Phone: [facility] 07-06-2025 14:16-0400 Body mass index (BMI) [Ratio] 22.5 kg/m2 Harsha Ball DO Work Phone: [facility] 07-06-2025 14:16-0400 Body weight 59.47 kg Harsha Ball DO Work Phone: [facility] 07-06-2025 14:16-0400 Diastolic blood pressure 65 mm[Hg] Harsha Ball DO Work Phone: [facility] 07-06-2025 14:16-0400 Heart rate 75 /min Harsha Ball DO Work Phone: [facility] 07-06-2025 14:16-0400 Respiratory rate 12 /min Harsha Ball DO Work Phone: [facility] 07-06-2025 14:16-0400 Systolic blood pressure 167 mm[Hg] Harsha Ball DO Work Phone: [facility] 05-04-2025 11:35-0400 Body height 162.56 cm Harsha Ball DO Work Phone: [facility] 05-04-2025 11:35-0400 Body mass index (BMI) [Ratio] 22.3 kg/m2 Harsha Ball DO Work Phone: [facility] 05-04-2025 11:35-0400 Body weight 59.02 kg Harsha Ball DO Work Phone: [facility] 05-04-2025 11:35-0400 Diastolic blood pressure 76 mm[Hg] Harsha Ball DO Work Phone: [facility] 05-04-2025 11:35-0400 Heart rate 73 /min Harsha Ball DO Work Phone: [facility] 05-04-2025 11:35-0400 Respiratory rate 12 /min Harsha Ball DO Work Phone: [facility] 05-04-2025 11:35-0400 SaO2% (BldA) [Mass fraction] 97 % Harsha Ball DO Work Phone: [facility] 05-04-2025 11:35-0400 Systolic blood pressure 165 mm[Hg] Harsha Ball DO Work Phone: [facility] 03-21-2025 12:54-0400 Body weight 59.2 kg Harsha Ball DO Work Phone: [facility] 03-21-2025 12:54-0400 Diastolic blood pressure 60 mm[Hg] Harsha Ball DO Work Phone: [facility] 03-21-2025 12:54-0400 Systolic blood pressure 128 mm[Hg] Harsha Ball DO Work Phone: [facility] 02-19-2025 13:42-0400 Body height 162.56 cm Harsha Ball DO Work Phone: [facility] 02-19-2025 13:42-0400 Body mass index (BMI) [Ratio] 24.6 kg/m2 Harsha Ball DO Work Phone: [facility] 02-19-2025 13:42-0400 Body weight 65.2 kg Harsha Ball DO Work Phone: [facility] 02-02-2025 11:26-0400 Diastolic blood pressure 79 mm[Hg] Harsha Ball DO Work Phone: [facility] 02-02-2025 11:26-0400 Heart rate 73 /min Harsha Ball DO Work Phone: [facility] 02-02-2025 11:26-0400 Respiratory rate 16 /min Harsha Ball DO Work Phone: [facility] 02-02-2025 11:26-0400 SaO2% (BldA) [Mass fraction] 95 % Harsha Ball DO Work Phone: [facility] 02-02-2025 11:26-0400 Systolic blood pressure 145 mm[Hg] Harsha Ball DO Work Phone: [facility] 02-02-2025 06:00-0400 Body weight 65.2 kg Harsha Ball DO Work Phone: [facility] 02-02-2025 03:58-0400 Body temperature 97.6 [degF] Harsha Ball DO Work Phone: [facility] 02-01-2025 13:00-0400 Inhaled oxygen flow rate 6 L/min Harsha Ball DO Work Phone: [facility] 01-29-2025 20:00-0400 Body temperature 98.2 [degF] Harsha Ball DO Work Phone: [facility] 01-29-2025 20:00-0400 Diastolic blood pressure 71 mm[Hg] Harsha Ball DO Work Phone: [facility] 01-29-2025 20:00-0400 Heart rate 69 /min Harsha Ball DO Work Phone: [facility] 01-29-2025 20:00-0400 Respiratory rate 16 /min Harsha Ball DO Work Phone: [facility] 01-29-2025 20:00-0400 SaO2% (BldA) [Mass fraction] 96 % Harsha Ball DO Work Phone: [facility] 01-29-2025 20:00-0400 Systolic blood pressure 168 mm[Hg] Harsha Ball DO Work Phone: [facility] 01-29-2025 01:04-0400 Body height 162.56 cm Harsha Ball DO Work Phone: [facility] 01-29-2025 01:04-0400 Body weight 62.7 kg Harsha Ball DO Work Phone: [facility] 01-03-2025 14:28-0500 Body height 162.56 cm [facility] 01-03-2025 14:28-0500 Body mass index (BMI) [Ratio] 25.2 kg/m2 [facility] 01-03-2025 14:28-0500 Body weight 66.76 kg [facility] 01-03-2025 14:28-0500 Diastolic blood pressure 72 mm[Hg] [facility] 01-03-2025 14:28-0500 Heart rate 74 /min [facility] 01-03-2025 14:28-0500 SaO2% (BldA) [Mass fraction] 99 % [facility] 01-03-2025 14:28-0500 Systolic blood pressure 174 mm[Hg] [facility] 10-16-2024 14:18-0500 Body height 162.56 cm [facility] 10-16-2024 14:18-0500 Body mass index (BMI) [Ratio] 26.3 kg/m2 [facility] 10-16-2024 14:18-0500 Body weight 69.51 kg [facility] 10-16-2024 14:18-0500 Diastolic blood pressure 62 mm[Hg] [facility] 10-16-2024 14:18-0500 Heart rate 62 /min [facility] 10-16-2024 14:18-0500 Respiratory rate 12 /min [facility] 10-16-2024 14:18-0500 Systolic blood pressure 132 mm[Hg] [facility] 07-18-2024 14:01-0400 Body height 162.56 cm [facility] 07-18-2024 14:01-0400 Body mass index (BMI) [Ratio] 26.9 kg/m2 [facility] 07-18-2024 14:01-0400 Body weight 71.21 kg [facility] 07-18-2024 14:01-0400 Diastolic blood pressure 68 mm[Hg] [facility] 07-18-2024 14:01-0400 Heart rate 73 /min [facility] 07-18-2024 14:01-0400 Respiratory rate 12 /min [facility] 07-18-2024 14:01-0400 Systolic blood pressure 112 mm[Hg] [facility] 05-16-2024 15:05-0400 Body temperature 98.2 [degF] Tutu Kubitz DPM Work Phone: [facility] 05-16-2024 15:05-0400 Diastolic blood pressure 60 mm[Hg] Tutu Kubitz DPM Work Phone: [facility] 05-16-2024 15:05-0400 Heart rate 61 /min Tutu Kubitz DPM Work Phone: [facility] 05-16-2024 15:05-0400 Systolic blood pressure 133 mm[Hg] Tutu Kubitz DPM Work Phone: [facility] 04-13-2024 11:08-0400 Body height 162.56 cm [facility] 04-13-2024 11:08-0400 Body mass index (BMI) [Ratio] 27.6 kg/m2 [facility] 04-13-2024 11:08-0400 Body weight 73.08 kg [facility] 04-13-2024 11:08-0400 Diastolic blood pressure 76 mm[Hg] [facility] 04-13-2024 11:08-0400 Heart rate 72 /min [facility] 04-13-2024 11:08-0400 Respiratory rate 12 /min [facility] 04-13-2024 11:08-0400 Systolic blood pressure 118 mm[Hg] [facility] 02-14-2024 13:54-0400 Body height 162.56 cm [facility] 02-14-2024 13:54-0400 Body mass index (BMI) [Ratio] 27.9 kg/m2 [facility] 02-14-2024 13:54-0400 Body weight 73.93 kg [facility] 02-14-2024 13:54-0400 Diastolic blood pressure 82 mm[Hg] [facility] 02-14-2024 13:54-0400 Heart rate 65 /min [facility] 02-14-2024 13:54-0400 Respiratory rate 12 /min [facility] 02-14-2024 13:54-0400 Systolic blood pressure 132 mm[Hg] [facility] 11-25-2023 09:30-0500 Body height 162.56 cm Harsha Ball Other [facility] 11-25-2023 09:30-0500 Body mass index (BMI) [Ratio] 26.57 kg/m2 Harsha Ball Other [facility] [employer] Other 11-25-2023 09:30-0500 Body weight 70.22 kg Harsha Ball Other [facility] Other 11-25-2023 09:30-0500 Body weight 70.21 kg [facility] 11-25-2023 09:30-0500 Diastolic blood pressure 71 mm[Hg] Harsha Ball Other [facility] 11-25-2023 09:30-0500 Respiratory rate 12 /min Harsha Ball Other [facility] [employer] Other 11-25-2023 09:30-0500 Systolic blood pressure 129 mm[Hg] Harsha Ball Other [facility] 07-19-2023 10:00-0400 Body height 162.56 cm Harsha Ball Other [employer] Other 07-19-2023 10:00-0400 Body mass index (BMI) [Ratio] 27.36 kg/m2 Harsha Ball Other [employer] Other 07-19-2023 10:00-0400 Body weight 72.3 kg Harsha Ball Other [employer] Other 07-19-2023 10:00-0400 Diastolic blood pressure 82 mm[Hg] Hasrha Ball Other [employer] Other 07-19-2023 10:00-0400 Respiratory rate 12 /min Harsha Ball Other [employer] Other 07-19-2023 10:00-0400 Systolic blood pressure 118 mm[Hg] Harsha Ball Other [employer] Other 05-11-2023 14:30-0400 Body height 162.56 cm Harsha Ball Other [employer] Other 05-11-2023 14:30-0400 Body mass index (BMI) [Ratio] 27.46 kg/m2 Harsha Ball Other [employer] Other 05-11-2023 14:30-0400 Body weight 72.58 kg Harsha Ball Other [employer] Other 05-11-2023 14:30-0400 Diastolic blood pressure 76 mm[Hg] Harsha Ball Other [employer] Other 05-11-2023 14:30-0400 Respiratory rate 12 /min Harsha Ball Other [employer] Other 05-11-2023 14:30-0400 Systolic blood pressure 118 mm[Hg] Harsha Ball Other [employer] Other 04-20-2023 11:00-0400 Body height 162.56 cm Harsha Ball Other [employer] Other 04-20-2023 11:00-0400 Body mass index (BMI) [Ratio] 27.36 kg/m2 Harsha Ball Other [employer] Other 04-20-2023 11:00-0400 Body weight 72.3 kg Harsha Ball Other [employer] Other 04-20-2023 11:00-0400 Diastolic blood pressure 70 mm[Hg] Harsha Ball Other [employer] Other 04-20-2023 11:00-0400 Respiratory rate 12 /min Harsha Ball Other [employer] Other 04-20-2023 11:00-0400 Systolic blood pressure 112 mm[Hg] Harsha Ball Other [employer] Other 02-08-2023 15:00-0400 Body height 162.56 cm Harsha Ball Other [employer] Other 02-08-2023 15:00-0400 Body mass index (BMI) [Ratio] 27.25 kg/m2 Harsha Ball Other [employer] Other 02-08-2023 15:00-0400 Body weight 72.03 kg Harsha Ball Other [employer] Other 02-08-2023 15:00-0400 Diastolic blood pressure 82 mm[Hg] Harsha Ball Other [employer] Other 02-08-2023 15:00-0400 Respiratory rate 12 /min Harsha Ball Other [employer] Other 02-08-2023 15:00-0400 Systolic blood pressure 118 mm[Hg] Harsha Ball Other [employer] Other 01-26-2023 13:15-0500 Body height 162.56 cm Harsha Ball Other [employer] Other 01-26-2023 13:15-0500 Diastolic blood pressure 70 mm[Hg] Harsha Ball Other [employer] Other 01-26-2023 13:15-0500 Respiratory rate 12 /min Harsha Ball Other [employer] Other 01-26-2023 13:15-0500 Systolic blood pressure 112 mm[Hg] Harsha Ball Other [employer] Other 12-16-2022 15:30-0500 Body height 162.56 cm Harsha Ball Other [employer] Other 12-16-2022 15:30-0500 Body mass index (BMI) [Ratio] 27.84 kg/m2 Harsha Ball Other [employer] Other 12-16-2022 15:30-0500 Body temperature 97.5 [degF] Harsha Ball Other [employer] Other 12-16-2022 15:30-0500 Body weight 73.57 kg Harsha Ball Other [employer] Other 12-16-2022 15:30-0500 SaO2% (BldA) [Mass fraction] 98 % Harsha Ball Other [facility] [employer] Other Encounters Encounter Date Encounter Type Care Provider Facility Start: 08-01-2025 End: 08-01-2025 ambulatory Harsha Andrew DO Work Phone: [facility] Work Phone: Start: 08-01-2025 End: 08-01-2025 Patient encounter procedure Harsha Andrew DO -[facility] Work Phone: Start: 07-06-2025 End: 07-06-2025 ambulatory Harsha Andrew DO Work Phone: [facility] Work Phone: Start: 07-06-2025 End: 07-06-2025 Patient encounter procedure Harsha Andrew DO -[facility] Work Phone: Start: 06-15-2025 End: 06-15-2025 ambulatory Harsha Andrew DO Work Phone: [facility] Work Phone: Start: 06-15-2025 End: 06-15-2025 Patient encounter procedure Harsha Andrew DO -[facility] Work Phone: Start: 05-07-2025 End: 05-07-2025 ambulatory Harsha Andrew Facility:[facility] Start: 05-07-2025 Non-patient / Non-visit Harsha colbert DO -[facility] Work Phone: Start: 05-04-2025 End: 05-04-2025 Patient encounter procedure Harsha Andrew DO -[facility] Work Phone: Start: 04-26-2025 Non-patient / Non-visit Harsha colbert DO -[facility] Work Phone: Start: 04-12-2025 Non-patient / Non-visit Harsha Moore l DO -[facility] Work Phone: Start: 03-22-2025 Non-patient / Non-visit Harsha Moore l DO -[facility] Work Phone: Start: 03-21-2025 End: 03-21-2025 ambulatory Harsha Ball DO Work Phone: [facility] Work Phone: Start: 03-21-2025 End: 03-21-2025 Patient encounter procedure Harsha Ball DO Work Phone: [facility] Work Phone: Start: 02-19-2025 End: 02-19-2025 ambulatory Harsha Ball DO Work Phone: [facility] Work Phone: Start: 02-19-2025 End: 02-19-2025 Patient encounter procedure Harsha Ball DO Work Phone: [facility] Work Phone: Start: 02-08-2025 Non-patient / Non-visit Benjam in Ball DO Work Phone: [facility] Work Phone: Start: 01-30-2025 ambulatory HARSHA ANDREW [facility] Start: 01-29-2025 Non-patient / Non-visit Benjam in Ball DO Work Phone: [facility] Work Phone: Start: 01-29-2025 End: 02-02-2025 Evaluation and management of inpatient Harsha Ball DO Work Phone: [facility] Work Phone: Start: 01-28-2025 End: 01-28-2025 ambulatory Harsha Ball DO Work Phone: [facility] Work Phone: Start: 01-28-2025 End: 01-28-2025 Departed Referred Harsha Ball DO Work Phone: [facility] Start: 01-28-2025 Non-patient / Non-visit Benjam in Ball DO [facility] Work Phone: Start: 01-22-2025 End: 01-24-2025 ambulatory [facility] Start: 01-22-2025 End: 01-24-2025 Subsequent hospital visit by physician Flores [address] Room [facility] Comment on above: Leg length discrepan cy Start: 01-03-2025 End: 01-03-2025 ambulatory [facility] Work Phone: Start: 01-03-2025 End: 01-03-2025 Patient encounter procedure [facility] Work Phone: Start: 10-16-2024 End: 10-16-2024 Patient encounter procedure [facility] Work Phone: Start: 10-10-2024 Non-patient / Non-visit [facility] Work Phone: Start: 09-06-2024 End: 09-06-2024 ambulatory [facility] Work Phone: Start: 09-06-2024 End: 09-06-2024 Patient encounter procedure [facility] Work Phone: Start: 08-15-2024 End: 08-17-2024 ambulatory [facility] Start: 08-11-2024 End: 08-11-2024 ambulatory [facility] Start: 07-27-2024 Non-patient / Non-visit [facility] Work Phone: Start: 07-18-2024 End: 07-18-2024 ambulatory [facility] Work Phone: Start: 07-18-2024 End: 07-18-2024 Patient encounter procedure [facility] Work Phone: Start: 07-10-2024 End: 07-10-2024 ambulatory [facility] Work Phone: Start: 07-10-2024 End: 07-10-2024 Patient encounter procedure [facility] Work Phone: Start: 05-30-2024 End: 05-30-2024 ambulatory [facility] Work Phone: Start: 05-30-2024 End: 05-30-2024 Patient encounter procedure [facility] Work Phone: Start: 05-16-2024 End: 05-16-2024 ambulatory TUTU UNGER Not Available Start: 05-16-2024 End: 05-16-2024 Office outpatient new 45 minutes Tutu Unger DPM Work Phone: [facility] Comment on above: Pain of left foot (P rimary Dx); Pain of right foot; Callus; Pes planovalgus; Acquired leg length discrepancy; Tailor's bunion of left foot; Valgus deformity of both great toes; Hammer toes of both feet; Plantar fat pad atrophy; Other secondary osteoarthritis of both feet Start: 04-13-2024 End: 04-13-2024 ambulatory [facility] Work Phone: Start: 04-13-2024 End: 04-13-2024 Patient encounter procedure [facility] Work Phone: Start: 02-25-2024 Non-patient / Non-visit [facility] Work Phone: Start: 02-14-2024 End: 02-14-2024 ambulatory [facility] Work Phone: Start: 02-14-2024 End: 02-14-2024 Patient encounter procedure [facility] Work Phone: Start: 01-31-2024 Non-patient / Non-visit [facility] Work Phone: Start: 12-21-2023 End: 12-21-2023 ambulatory Harsha Andrew Other [employer] Other Start: 12-21-2023 Telephone encounter Harsha Andrew [facility] Start: 12-14-2023 End: 12-14-2023 ambulatory Harsha Andrew Other [employer] Other Start: 12-14-2023 Telephone encounter Harsha Andrew [facility] Start: 11-25-2023 End: 11-25-2023 ambulatory Harsha Andrew Other [employer] Other Start: 11-25-2023 Transitional care aman mahan srvc 14 day discharge Harsha Andrew [facility] Start: 11-25-2023 End: 11-25-2023 Patient encounter procedure [facility] Work Phone: Start: 11-12-2023 End: 11-12-2023 ambulatory Harsha Andrew Other [employer] Other Start: 11-12-2023 Telephone encounter Harsha Andrew [facility] Start: 11-11-2023 End: 11-11-2023 ambulatory Harsha Andrew Other [employer] Other Start: 11-11-2023 Nursing facility discharge management 30 minutes Harsha Andrew [facility] Start: 11-11-2023 Telephone encounter Harsha Andrew [facility] Start: 11-09-2023 End: 11-09-2023 ambulatory Harsha Kamran Other [employer] Other Start: 11-09-2023 Telephone encounter Harsha Andrew [facility] Start: 11-01-2023 End: 11-01-2023 ambulatory Harsha Ball Other [employer] Other Start: 11-01-2023 Telephone encounter Harsha Andrew [facility] Start: 10-28-2023 End: 10-28-2023 ambulatory Harsha Ball Other [employer] Other Start: 10-28-2023 Sbsq nursing facil care/day new problem 25 min Harsha Ball [facility] Start: 10-28-2023 Telephone encounter Harsha Ball [facility] Start: 10-17-2023 End: 10-17-2023 ambulatory Harsha Ball Other [employer] Other Start: 10-17-2023 Telephone encounter Harsha Ball [facility] Start: 10-15-2023 End: 10-15-2023 ambulatory Harsha Ball Other [employer] Other Start: 10-15-2023 Sbsq nursing facil care/day new problem 25 min Harsha Ball [facility] Start: 10-09-2023 End: 10-09-2023 ambulatory Harsha Ball Other [employer] Other Start: 10-09-2023 Telephone encounter Harsha Ball [facility] Start: 10-08-2023 End: 10-08-2023 ambulatory Harsha Ball Other [employer] Other Start: 10-08-2023 Telephone encounter Harsha Ball [facility] Start: 10-07-2023 End: 10-07-2023 ambulatory Harsha Ball Other [employer] Other Start: 10-07-2023 Initial nursing faci lity care/day 45 minutes Harsha Ball [facility] Start: 10-05-2023 End: 10-05-2023 ambulatory Harsha Ball Other [employer] Other Start: 10-05-2023 Telephone encounter Harsha Ball [facility] Start: 10-04-2023 End: 10-04-2023 ambulatory Harsha Ball Other [employer] Other Start: 10-04-2023 Telephone encounter Harsha Ball [facility] Start: 09-30-2023 End: 09-30-2023 ambulatory Harsha Ball Other [employer] Other Start: 09-30-2023 Telephone encounter Harsha Ball [facility] Start: 09-26-2023 End: 09-26-2023 ambulatory Harsha Ball Other [employer] Other Start: 09-26-2023 Telephone encounter Harsha Ball [facility] Start: 09-25-2023 End: 09-30-2023 Evaluation and management of inpatient [facility] Start: 09-22-2023 End: 09-22-2023 ambulatory Ahrsha Ball Other [employer] Other Start: 09-22-2023 Telephone encounter Harsha Ball [facility] Start: 08-30-2023 End: 08-30-2023 ambulatory Harsha Ball Other [employer] Other Start: 08-30-2023 Office outpatient vi sit 15 minutes Harsha Ball [facility] Start: 08-11-2023 End: 08-11-2023 ambulatory Harsha Ball Other [employer] Other Start: 08-11-2023 Telephone encounter Harsha Ball [facility] Start: 07-19-2023 End: 07-19-2023 ambulatory Harsha Ball Other [employer] Other Start: 07-19-2023 Encounter for other preprocedural examination Harsha Ball [facility] Start: 07-19-2023 Office outpatient vi sit 25 minutes Harsha Ball [facility] Start: 07-16-2023 End: 07-16-2023 ambulatory Harsha Ball Other [employer] Other Start: 07-16-2023 Telephone encounter Harsha Ball [facility] Start: 07-12-2023 End: 07-13-2023 ambulatory Frank Cannon DO Facility:[facility] Start: 06-25-2023 End: 06-25-2023 ambulatory Harsha Andrew Other [employer] Other Start: 06-25-2023 Nursing evaluation o f patient and report Harsha Andrew [facility] Start: 06-21-2023 End: 06-21-2023 ambulatory Harsha Andrew Other [employer] Other Start: 06-21-2023 Nursing evaluation o f patient and report Harsha Andrew [facility] Start: 05-17-2023 End: 05-17-2023 ambulatory Harsha Andrew Other [employer] Other Start: 05-17-2023 Telephone encounter Harsha GONZALES [facility] Start: 05-11-2023 End: 05-11-2023 ambulatory Harsha Andrew Other [employer] Other Start: 05-11-2023 Office outpatient vi sit 25 minutes Harsha Andrew [facility] Start: 04-20-2023 End: 04-20-2023 ambulatory Harsha Andrew Other [employer] Other Start: 04-20-2023 Office outpatient vi sit 15 minutes Harsha Kamran [facility] Start: 04-14-2023 End: 04-15-[address] MD Facility:[facility] Start: 04-05-2023 End: 04-05-2023 ambulatory Harsha Andrew Other [employer] Other Start: 04-05-2023 Telephone encounter Harsha GONZALES [facility] Start: 02-10-2023 End: 02-11-[address] HARSHA ANDREW Facility: Start: 02-10-2023 Nursing evaluation o f patient and report Harsha Andrew [facility] Start: 02-10-2023 Telephone encounter Harsha GONZALES [facility] Start: 02-08-2023 End: 02-09-[address] HARSHA ANDREW [employer] Other Start: 02-08-2023 Patient encounter procedure Harsha Kamran [facility] Start: 02-08-2023 Telephone encounter Harsha Kamran [facility] Start: 02-01-2023 End: 02-01-2023 ambulatory Harsha Andrew Other [employer] Other Start: 02-01-2023 Telephone encounter Harsha Andrew [facility] Start: 01-26-2023 End: 01-27-[address] HARSHA ANDREW [employer] Other Start: 01-26-2023 Office outpatient vi sit 15 minutes Harsha Andrew [facility] Start: 01-26-2023 Telephone encounter Harsha Andrew [facility] Start: 01-18-2023 End: 01-19-[address] HARSHA ANDREW Facility:[facility] Start: 01-11-2023 End: 01-11-2023 ambulatory Harsha Andrew Other [employer] Other Start: 01-11-2023 Telephone encounter Harsha Andrew [facility] Start: 01-08-2023 End: 01-09-[address] HARSHA ANDREW Facility:[facility] Start: 12-17-2022 End: 12-17-2022 ambulatory Harsha Andrew Other [employer] Other Start: 12-17-2022 Telephone encounter Harsha Andrew [facility] Start: 12-16-2022 End: 12-16-2022 ambulatory Harsha Andrew Other [employer] Other Start: 12-16-2022 Office outpatient vi sit 25 minutes Harsha Andrew [facility] Start: 12-11-2022 End: 12-14-[address] JUN MARTÍNEZ . Facility:[facility] Start: 09-30-2022 End: 10-01-[address] HARSHA ANDREW Facility:[facility] Start: 09-15-2022 Gynecological examin ation normal Harsha Andrew Other [employer] Other Start: 08-07-2022 End: 08-07-[address] [...] ANDREW Facility:[facility] Start: 02-03-2022 Adult health examination Wade Andrew Other [employer] Other Procedures Date Procedure Procedure Detail Performing Clinician Start: 02-01-2025 Balloon kyphoplasty of fracture of spine Harsha Ball DO Work Phone: Start: 01-31-2025 Plain chest X-ray Wade Andrew DO Work Phone: Start: 01-30-2025 X-ray of lumbar spin e, two or three views Harsha Ball DO Work Phone: Start: 01-29-2025 Urine culture Harsha Ball DO Work Phone: Start: 01-29-2025 MR lumbar spine wo con Harsha Ball DO Work Phone: Start: 01-28-2025 Urine culture Harsha Ball DO Work Phone: Start: 01-22-2025 Bone length studies Lexy Day MD Work Phone: Start: 01-14-2025 Radex foot complete minimum 3 views Tutu Unger DPM Work Phone: Start: 01-14-2025 Radex foot complete minimum 3 views Tutu Unger DPM Work Phone: Start: 07-17-2014 Screening mammography B enjamin Kamran Other End: 03-20-2020 Counseling Harsha Andrew Other Depression screening Julianne Andrew Other Screening for malign ant neoplasm of breast Harsha Andrew Other Plan of Treatment Date Care Activity Detail Author Start: 08-01-2025 Patient referral [facility] Work Phone: Start: 02-02-2025 [facility] Start: 02-01-2025 Hospital admission [facility] [facility] Start: 02-01-2025 [facility] Start: 01-30-2025 End: 01-30-2025 Patient encounter procedure 01/30/2025 4:00 PM EDT Appointment [facility] Physical Therapy [address] [place], [place] [id number] Richard Santos, PT MEDICARE [facility] Physical Therapy Comment on above: MEDICARE Start: 01-29-2025 Arrangement of care procedure [facility] Start: 01-29-2025 Bacteria identified in Urine by Culture Urine Culture [facility] Start: 01-29-2025 Reposition Thoracic Vertebra, Percutaneous Approach Reposition Thoracic Vertebra, Percutaneous Approach [facility] Start: 01-29-2025 Supplement Thoracic Vertebra with Synthetic Substitute, Percutaneous Approach Supplement Thoracic Vertebra with Synthetic Substitute, Percutaneous Approach [facility] Start: 01-29-2025 Physical therapy procedure [facility] Start: 01-29-2025 Referral to occupati onal therapist [facility] Start: 01-29-2025 Urine culture [facility] Start: 01-29-2025 Consultation [facility] Start: 01-29-2025 Hospital admission [facility] Start: 01-29-2025 [facility] Start: 01-28-2025 Urine culture [facility] Start: 01-28-2025 Bacteria identified in Urine by Culture Urine Culture [facility] Start: 09-30-2024 GFR test (Diabetes, CKD 3-4, OR last GFR 15-59) GFR test (Diabetes, CKD 3-4, OR last GFR 15-59) [facility] Start: 07-23-2024 COVID-19 Vaccine ( season) COVID-19 Vaccine ( season) [facility] Start: 10-18-2023 Annual Wellness Visi t (Medicare) Annual Wellness Visit (Medicare) [facility] Start: 08-02-2023 ambulatory Ambulatory Facility:[facility] Start: 07-27-2023 ambulatory Ambulatory Facility:[facility] Start: 07-03-2020 Pneumococcal 50+ yea rs Vaccine (2 of 2 - PCV) Pneumococcal 50+ years Vaccine (2 of 2 - PCV) [facility] Start: 01-22-2020 Respiratory Syncytia l Virus (RSV) or age 60 yrs+ (1 - 1-dose 75+ series) Respiratory Syncytial Virus (RSV) or age 60 yrs+ (1 - 1-dose 75+ series) [facility] Start: 01-22-2000 Screening for osteoporosis DEXA (modify frequency per FRAX score) [facility] Start: 01-22-1964 DTaP/Tdap/Td vaccine (1 - Tdap) DTaP/Tdap/Td vaccine (1 - Tdap) [facility] Start: 1963 Urine screening for protein Diabetic Alb to Cr ratio (uACR) test [facility] Start: 1957 Depression Screen Depression Screen [facility] Start: 1955 Lipid panel Lipids [facility] metabo lic 1999 panel - Serum or Plasma [facility] Comprehensive metabo lic 1999 panel - Serum or Plasma [facility] MG Breast - bilatera l Screening [facility] Patient referral [facility] Work Phone: Urine culture [facility] Immunizations Immunization Date Immunization Notes Care Provider Eleazar swift 09-06-2024 influenza, high dose seasonal, preservative-free [facility] 08-26-2022 influenza, high dose seasonal, preservative-free Harsha Andrew Other [employer] Other 08-26-2022 influenza virus vaccine, split virus (incl. purified surface antigen) Harsha Andrew Other [facility] [employer] Other 08-26-2022 influenza virus vaccine, unspecified formulation [facility] 03-09-2022 zoster vaccine recombinant Harsha Andrew Other [facility] 10-21-2021 zoster vaccine recombinant Harsha Andrew Other [facility] 08-26-2021 COVID-19 Vaccine Pfi zer - Documentation Purposes Only Harsha Andrew Other [facility] 01-09-2021 COVID-19 Vaccine Pfi zer - Documentation Purposes Only Harsha Andrew Other [facility] 12-19-2020 COVID-19 Vaccine Moderna - Documentation Purposes Only Harsha Andrew Other [facility] 12-19-2020 COVID-19 Vaccine Pfi zer - Documentation Purposes Only Harsha Andrew Other [facility] 09-17-2020 influenza virus vaccine, split virus (incl. purified surface antigen) Harsha Andrew Other [facility] [employer] Other 09-17-2020 influenza virus vaccine, unspecified formulation [facility] 10-03-2019 influenza virus vaccine, split virus (incl. purified surface antigen) Harsha Andrew Other [facility] [employer] Other 10-03-2019 influenza virus vaccine, unspecified formulation [facility] 07-03-2019 pneumococcal polysaccharide vaccine, 23 valent Harsha Andrew Other [facility] 09-28-2018 influenza virus vaccine, split virus (incl. purified surface antigen) Harsha Andrew Other [facility] [employer] Other 09-28-2018 influenza virus vaccine, unspecified formulation [facility] 08-17-2017 influenza virus vaccine, split virus (incl. purified surface antigen) Harsha Andrew Other [facility] [employer] Other 08-17-2017 influenza virus vaccine, unspecified formulation [facility] 09-04-2015 influenza virus vaccine, split virus (incl. purified surface antigen) Harsha Andrew Other [email or web address] [employer] Other 09-04-2015 influenza virus vaccine, unspecified formulation [facility] 09-04-2015 pneumococcal conjuga te vaccine, 13 valent Harsha Kamran Other [facility] 08-03-2012 tetanus and diphther ia toxoids, adsorbed, preservative free, for adult use (5 Lf of tetanus toxoid and 2 Lf of diphtheria toxoid) Harsha Kamran Other [facility] pneumococcal Conjuga te, unspecified formulation; Translations: [Need for prophylactic vaccination against Streptococcus pneumoniae (pneumococcus)] Harsha Andrew Other [facility] [employer] Other Payers Date Payer Category Payer Self-pay 2023 [facility] [id number] 2023 Unknown 2010 Medicare 1959 Medicare [id number] 2.16.840.1.160450. 1959 Unknown [id number] 2.16.840.1.828149.19 1945 Unknown [id number] 2.16.840.1.041271.3.579.2 .593 1945 Unknown [id number] 2.16.840.1.814220.3.579.2 .593 1945 Unknown [id number] 2.16.840.1.786017.3.579.2 .593 1945 Unknown [id number] 2.16.840.1.395275.3.579.2 .593 1945 Unknown [id number] 2.16.840.1.271736.3.579.2 .593 1945 Unknown [id number] 2.16.840.1.174081.3.579.2 .593 1945 Unknown [id number] 2.16.840.1.547128.3.579.2 .593 1945 Unknown [id number] 2.16.840.1.659926.3.579.2 .593 1945 Unknown [id number] 2.16.840.1.729914.3.579.2 .593 1945 Unknown [id number] 2.16.840.1.303666.3.579.2 .593 1945 Unknown [id number] 2.16.840.1.272135.3.579.2 .593 1945 Unknown [id number] 2.16.840.1.260678.3.579.2 .593 1945 Unknown [id number] 2.16.840.1.118556.3.579.2 .593 1945 Unknown [id number] 2.16.840.1.615471.3.579.2 .593 1945 Unknown [id number] 2.16.840.1.854045.3.579.2 .196 1945 Unknown [id number] 2.16.840.1.616637.3.579.2 .196 1945 Unknown [id number] 2.16.840.1.678874.3.579.2 .196 1945 Unknown [id number] 2.16.840.1.279410.3.579.2 .196 1945 Unknown [id number] 2.16.840.1.247983.3.579.2 .196 1945 Unknown [id number] 2.16.840.1.801129.3.579.2 .93 1945 Unknown [id number] 2.16.840.1.951395.3.579.2 .1259 1945 Unknown [id number] 2.16.840.1.765677.3.579.2 .173 1945 Unknown [id number] 2.16.840.1.511866.3.579.2 .173 1945 Unknown [id number] 2.16.840.1.627425.3.579.2 .173 1945 Unknown [id number] 2.16.840.1.927290.3.579.2 .173 1945 Unknown [id number] 2.16.840.1.630580.3.579.2 .173 Unknown [id number] 2.16.840.1.542539.3.579.2 .531 Unknown [id number] 2.16.840.1.305534.3.579.2 .531 Unknown [id number] 2.16.840.1.402908.3.579.2 .531 Social History Date Type Detail Facility Start: 09-25-2023 End: 05-16-2024 Sex Assigned At [facility] Start: 1945 Sex Assigned At Female F [facility] Tobacco smoking stat us NCIS Unknown if ever smoked [facility] Work Phone: Start: 01-03-2025 End: 03-21-2025 Sex Female (finding) [facility] Start: 05-16-2024 End: 01-29-2025 Tobacco smoking status NCIS Never smoked tobacco [facility] Start: 05-16-2024 Tobacco use and exposure Smokeless tobacco non-user [facility] Start: 05-16-2024 Alcoholic beverage intake Ex-drinker (finding) [facility] Start: 09-25-2023 End: 05-16-2024 History of Social function [employer] Start: 1945 Sex assigned at Not on file [facility] Start: 09-28-2023 Alcoholic beverage intake Current drinker of alcohol (finding) [employer] Read-Only, Retired: Physical Abuse Denies [employer] Start: 01-16-2013 Alcohol Comment social [employer] Start: 01-30-2025 SDOH Follow up SDOH Follow up [facility] Work Phone: Medical Equipment Procedure Code Equipment Code Equipment Origin al Text Equipment Identifier Dates Kyphoplasty Orthopaedic ceme nt, non-medicated [id number] FDA Start: 02-01-2025 Nail Im L280mm Dmn01mn Fem Tib Ti Josy Lck Rg Gld Scio-Nail - [id number] Start: 09-25-2023 Screw Bne L30mm Dia5mm Ge Ti Int Capt Hex Lo Prof For Im - [id number] Start: 09-25-2023 Screw Bne L30mm Dia5mm Ge Ti Int Capt Hex Lo Prof For Im - [id number] Start: 09-25-2023 Screw Bne L47.5m m Dia5mm Ge Tib Ti Int Hex Lo Prof For Im - [id number] Start: 09-25-2023 Blood Sugar Diagnostic (Contour [...] status Patient is Pro gressing Toward Baseline [facility] Work Phone: 01-29-2025 Functional status Patient Not at Baseline [facility] Work Phone: Mental Status Date Assessment Result Facility 02-02-2025 Cognitive function Cognitive Sta tus Patient at Baseline [facility] Work Phone: 01-29-2025 Cognitive function Cognitive Sta tus Patient at Baseline [facility] Work Phone: Clinical Notes 11-10-2022 to 05-04-2025 Note Date & Type Note [...] May 04 11:34am Essential hypertension acute Au 2024 2:13pm MALIKA (generalized anxiety disorder) acute [...] for breast cancer noneactive July 06 2:13pm [facility] Work Phone: 1(128) 721-174806-13-2025 Evaluation note* Diagnosis Onset Date Resolution Status Admit Date Burst fracture of T12 vertebra acute May [...] h hyperglycemia acute May 04, 2025 11:34am Essential hypertension acute Au sandrita 2024 2:13pm MALIKA (generalized anxiety disorder) acute July 06 2:13pm GERD (gastroesophageal reflu x disease) acute July 06 2:13pm Hypothyroid acute July 06, 2025 2:13pm Obstructive sleep apnea acute A ugust 2024 2:13pm Osteopenia acute July 06, 2 025 2:13pm Paroxysmal atrial fibrillation acute July 06 2:13pm Stage 3b chronic kidney disease acute July 06 2:13pm Type 2 diabetes mellitus wit h diabetic polyneuropathy acute June 222024 2:13pm Type 2 diabetes mellitus wit h hyperglycemia acute July 06 2:13pm Medicare annual wellness visit, subsequent noneactive July 06, 2 025 2:13pm Screening mammogram for breast cancer noneactive July 06 2:13pm Closed compression fracture of L1 vertebra acute August 01, 2025 10:31am Essential hypertension acute Se pt2024 10:31am MALIKA (generalized anxiety disorder) acute August 01, 2025 10:31am GERD (gastroesophageal reflu x disease) acute August 01, 2025 10:31am Hypothyroid acute July 10:31am Osteoporosis acute August 012024 10:31am Paroxysmal atrial fibrillation acute August 01, 2025 10:31am Stage 3b chronic kidney disease acute August 01, 2025 10:31am Type 2 diabetes mellitus wit h diabetic polyneuropathy acute Julemb2024 10:31am Type 2 diabetes mellitus wit h hyperglycemia acute August 01, 2025 10:31am [facility] Work Phone: 1(849) 490-923106-13-2025 Evaluation note* Diagnosis Onset Date Resolution Status Admit Date Burst fracture of T12 vertebra acute May [...] h hyperglycemia acute May 04, 2025 11:34am Essential hypertension acute Au sandrita 2024 2:13pm MALIKA (generalized anxiety disorder) acute July 06 2:13pm GERD (gastroesophageal reflu x disease) acute July 06 2:13pm Hypothyroid acute July 06, 2025 2:13pm Obstructive sleep apnea acute A ug2024 2:13pm Paroxysmal atrial fibrillation acute July 06 2:13pm Stage 3b chronic kidney disease acute July 06 2:13pm Type 2 diabetes mellitus wit h diabetic polyneuropathy acute June 222024 2:13pm Type 2 diabetes mellitus wit h hyperglycemia acute July 06 2:13pm Osteopenia deleted July 06, 2 025 2:13pm Medicare annual wellness visit, subsequent noneactive July 06, 2 025 2:13pm Screening mammogram for breast cancer noneactive July 06 2:13pm Closed compression fracture of L1 vertebra acute August 01, 2025 10:31am Essential hypertension acute Se pt2024 10:31am MALIKA (generalized anxiety disorder) acute August 01, 2025 10:31am GERD (gastroesophageal reflu x disease) acute August 01, 2025 10:31am Hypothyroid acute July 10:31am Osteoporosis acute August 012024 10:31am Paroxysmal atrial fibrillation acute August 01, 2025 10:31am Stage 3b chronic kidney disease acute August 01, 2025 10:31am Type 2 diabetes mellitus wit h diabetic polyneuropathy acute 2024 10:31am Type 2 diabetes mellitus wit h hyperglycemia acute August 01, 2025 10:31am [facility] Work Phone: 1(338) 537-799604-30-2025 Evaluation note* Diagnosis Onset Date Resolution Status [...] h hyperglycemia acute May 04, 2025 11:34am [facility] Work Phone: 1(711) 534-481803-14-2025 Progress note Author Donell Rosenbaum [facility] Note Date/Time February 02, 2025 7:1 5am [facility] [address] [place] [address] Neurosurgery Progress Note Signed Patient: Fatuma Fair MR#: [id number] : 1945 Acct:[id number] Age/Sex: 80 / F Adm Date: 5 Loc: Room: [address] [place] [address] Type: ADM IN Attending Dr: Alec Alvarez [...] intact and symmetrical Deltoid bicep tricep and bath design sales consultant 5/5 bilateral Upper extremity sensory normal to [...] % (Auto) 87.0, Lymph % (Auto) 4.5, Sebastian % (Auto) 7.3, Eos % (Auto) 1.0, Baso % (Auto) 0.2, Nucleat RBC Rel Count 0.2, Neut # (Auto) 9.9 H, Lymph # (Auto) 0.5 L, Sebastian # (Auto) 0.8, Eos # (Auto) 0.1, [...] Cloudy A, Urine pH 5.0, Ur Specific [place] 1.018, Urine Protein 20 H, Urine Glucose [...] diabetes mellitus with hyperglycemia: Qualifiers: 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: without alf use Qualified Code(s): E11.65 - Type 2 diabetes mellitus with hyperglycemia (6) Paroxysmal atrial fibrillation: (7) Chronic anticoagulation: Plan In summary as patient is a 80-year-old female postop day 1 from percutaneous [id number] secondary having worsening thoracic back pain as [...] By: <Electronically signed by Donell Rosenbaum DO> 02/02/2515 [facility] Work Phone: 1(253) 245-407403-14-2025 [place] [address] Neurosurgery Progress Note Signed Patient: Fatuma Fair MR#: [id number] : 1945 Acct:[id number] Age/Sex: 80 / F Adm Date: 5 Loc: Room: [address] [place] [address] Type: ADM IN Attending Dr: Alec Alvarez [...] intact and symmetrical Deltoid bicep tricep and bath design sales consultant 5/5 bilateral Upper extremity sensory normal to [...] % (Auto) 87.0, Lymph % (Auto) 4.5, Sebastian % (Auto) 7.3, Eos % (Auto) 1.0, Baso % (Auto) 0.2, Nucleat RBC Rel Count 0.2, Neut # (Auto)9.9 H, Lymph # (Auto) 0.5 L, Sebastian # (Auto) 0.8, Eos # (Auto) 0.1, [...] Cloudy A, Urine pH 5.0, Ur Specific [place] 1.018, Urine Protein 20 H, Urine Glucose [...] diabetes mellitus with hyperglycemia: Qualifiers: 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: without 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 oil terminal use Qualified Code(s): E11.65 - Type 2 diabetes mellitus with hyperglycemia (6) Paroxysmal atrial fibrillation: (7) Chronic anticoagulation: Plan In summary as patient is a 80-year-old female postop day 1 from percutaneous [id number] secondary having worsening thoracic back pain as [...] Rosenbaum DO 02/02/25713 Signed By: 02/02/25 0715 [facility]03-13-2025 Progress note Author Alexandra Cheney [facility] Note Date/Time February 01, 2025 5:1 4pm [facility] [address] [place] [address] Hospitalist Progress Note Signed Patient: Fatuma Fair MR#: [id number] : 1945 Acct:[id number] Age/Sex: 80 / F Adm Date: 5 Loc: 4N Room: 4N2419-4 Type: ADM IN Attending Dr: Alec Alvarez [...] 1,000 Unit/10 Ml SUBCUT 02/01/25 13:52 PROTOCOL [facility] Protocol Levothyroxine Sodium 25 mcg 01/29/25 06:30 [...] 09:00 02/01/25 09:19 Pantoprazole 40 Mg Tablet.Dr GOODE 01/29/26 08:59 Not Given DAILY KATHERINE Sodium [...] canal narrowing -therapy evaluations- plan dc to [facility] -symptom management, IV Hydromorphone and Tramadol. Will [...] <Electronically signed by Alec Alvarez MD> 02/01/25 1713 [facility] Work Phone: 1(712) 566-627703-13-2025 [place] [address] Hospitalist Progress Note Signed Patient: Fatuma Fair MR#: [id number] : 1945 Acct:[id number] Age/Sex: 80 / F Adm Date: 5 Loc: Room: [address] [place] [address] Type: ADM IN Attending Dr: Alec Alvarez [...] canal narrowing -therapy evaluations- plan dc to [facility] -symptom management, IV Hydromorphone and Tramadol. Will [...] 1136 Signed By: 02/01/25 1522 02/01/25 1714 [facility]03-12-2025 Progress note Author Alexandra Cheney [facility] Note Date/Time January 31, 2025 5:2 1pm [facility] [address] [place] [address] Hospitalist Progress Note Signed with Scooter Patient: Fatuma Fair MR#: [id number] : 1945 Acct:[id number] Age/Sex: 80 / F Adm Date: 5 Loc: 4N Room: [address] [place] [address] Type: ADM IN Attending Dr: Alec Alvarez MD Copies to: ~ ADDENDUM1 EKG SR Echo EF 65-70%, LVH, mild AR CXR- nonacute Pt medically/ cardiac cleared for surgery - see additional notations below Addendum Documented By: FROYLAN Cheney 01/31/25 172 Addendum Signed By: <Electronically signed by FROYLAN [...] 01/29/25 09:00 01/31/25 08:24 Pantoprazole 40 Mg Tablet.Dr PO 01/29/26 08:59 40 mg DAILY KATHERINE [...] canal narrowing -therapy evaluations- plan dc to [facility]- they can accept -symptom management, utilizing IV Hydromorphone and Tramadol -01/31 patient has now decided she would like kyphoplasty, planned 02/01 -pending EKG/ echo/ CXR for preop clearance. RCRI=0. Hx Lexiscan 10/2021 normal. Echo 04/2022 EF 55-60% mild TR/MR/NE UTI, RULED OUT -culture with bacterial skin [...] care reflects my direct input Documented By: lAexandra Cheney APRN 01/20 01/16 1114 Signed By: <Electronically signed by FROYLAN Cheney> 01/31/25 1324 <Electronically signed by Alec Alvarez MD> 01/31/25 164 [facility] Work Phone: 1(982) 475-253603-12-2025 [place] [id number] Hospitalist Progress Note Signed with Addenda Patient: Fatuma Fair MR#: [id number] : 1945 Acct:[id number] Age/Sex: 80 / F Adm Date: 5 Loc: 4N Room: [address] [place] [address] Type: ADM IN Attending Dr: Alec Alvarez MD Copies to: ~ ADDENDUM1 EKG SR Echo EF 65-70%, LVH, mild AR CXR- nonacute Pt medically/ cardiac cleared for surgery - see additional notations below Addendum Documented By: FROYLAN Perea Jeffy 01/31/251720 Addendum Signed By: 01/31/251720 Date of [...] canal narrowing -therapy evaluations- plan dc to [facility]- they can accept -symptom management, utilizing IV Hydromorphone and Tramadol -01/31 patient has now decided she would like kyphoplasty, planned 02/01 -pending EKG/ echo/ CXR for preop clearance. RCRI=0. Hx Lexiscan 10/2021 normal. Echo 04/2022 EF 55-60% mild TR/MR/NE UTI, RULED OUT -culture with bacterial skin [...] 1114 Signed By: 01/31/25 1324 01/31/25 1642 [facility]03-12-2025 Progress note Author Donell Rosenbaum [facility] Note Date/Time January 31, 2025 12: 52pm [facility] [address] [place] [address] Neurosurgery Progress Note Signed Patient: Fatuma Fair MR#: [id number] : 1945 Acct:[id number] Age/Sex: 80 / F Adm Date: 5 Loc: 4N Room: 4N3348-9 Type: ADM IN Attending Dr: Alec Alvarez [...] in stroke coma and cement extravasationleading to [place] PE DVT worsening condition any future surgery. [...] signed by Donell Rosenbaum DO> 01/31/25 1252 [facility] Work Phone: 1(583) 262-626903-12-2025 [place] [address] Neurosurgery Progress Note Signed Patient: Fatuma Fair MR#: [id number] : 1945 Acct:[id number] Age/Sex: 80 / F Adm Date: 5 Loc: 4N Room: [address] [place] [address] Type: ADM IN Attending Dr: Alec Alvarez [...] in stroke coma and cement extravasationleading to [place] PE DVT worsening condition any future surgery. [...] vertebra: Plan as above Documented By: Donell Rosenbaum, 01/31/25 1250 Signed By: 01/31/25 1252 [facility]03-12-2025 Progress note Author Donell Rosenbaum [facility] Note Date/Time January 31, 2025 8:0 4am [facility] [address] [place] [address] Neurosurgery Progress Note Signed Patient: Fatuma Fair MR#: [id number] : 1945 Acct:[id number] Age/Sex: 80 / F Adm Date: 5 Loc: Room: [address] [place] [address] Type: ADM IN Attending Dr: Alec Alvarez [...] intact and symmetrical Deltoid bicep tricep and bath design sales consultant 5/5 bilateral Upper extremity sensory normal to [...] diabetes mellitus with hyperglycemia: Qualifiers: Diabetes mellitus alf insulin use: without alf use Qualified Code(s): E11.65 - Type 2 [...] instroke coma and cement extravasation leading to [place] PE DVT worsening condition any future surgery. [...] signed by Donell Rosenbaum DO> 01/31/25 0804 [facility] Work Phone: 1(227) 221-344803-12-2025 [place] [address] Neurosurgery Progress Note Signed Patient: Fatuma Fair MR#: [id number] : 1945 Acct:[id number] Age/Sex: 80 / F Adm Date: 5 Loc: 4N Room: [address] [place] [address] Type: ADM IN Attending Dr: Alec Alvarez [...] intact and symmetrical Deltoid bicep tricep and bath design sales consultant 5/5 bilateral Upper extremity sensory normal to [...] diabetes mellitus with hyperglycemia: Qualifiers: Diabetes mellitus alf insulin use: without 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 oil terminal use Qualified Code(s): E11.65 - Type [...] instroke coma and cement extravasation leading to [place] PE DVT worsening condition any future surgery. [...] agreementwith the above plan. Documented By: Donell Rosenbaum, 01/31/25 0801 Signed By: 01/31/25 0804 [facility]03-11-2025 Progress note Author Alexandra Cheney [facility] Note Date/Time January 30, 2025 9:1 2pm [facility] [address] [place] [address] Hospitalist Progress Note Signed Patient: Fatuma Fair MR#: [id number] : 1945 Acct:[id number] Age/Sex: 80 / F Adm Date: 5 Loc: Room: [address] [place] [address] Type: ADM IN Attending Dr: Alec Alvarez [...] canal narrowing -therapy evaluations- plan dc to [facility]- they can accept -symptom management, utilizing IV [...] 1524 <Electronically signed by Alec Alvarez MD> 01/30/25 8458 [facility] Work Phone: 1(986) 757-530503-11-2025 [place] [address] Hospitalist Progress Note Signed Patient: Fatuma Fair MR#: [id number] : 1945 Acct:[id number] Age/Sex: 80 / F Adm Date: 5 Loc: 4N Room: [address] [place] [address] Type: ADM IN Attending Dr: Alec Alvarez MD Copies to: ~ Date of Service: 01/30/2025 Subjective Subjective Narrative: Patient seen and examined. She is up in chair, wearing TLSO brace. Still endorses pain back. Workedwith therapy today. Charge nurse made aware to haveSusana reassess fit as brace pushes up into [...] canal narrowing -therapy evaluations- plan dc to [facility]- they can accept -symptom management, utilizing IV [...] 12/16 1135 Signed By: 01/30/25 1524 01/30/25 [facility]2 [facility]03-11-2025 Progress note Author Donell Rosenbaum [facility] Note Date/Time January 30, 2025 2:1 8pm [facility] [facility] [address] [place] [address] Neurosurgery Progress Note Signed Patient: Fatuma Fair MR#: [id number] : 1945 Acct:[id number] Age/Sex: 80 / F Adm Date: 5 Loc: 4N Room: [address] [place] [address] Type: ADM IN Attending Dr: Alec Alvarez [...] Room Air 01/30/25 11:05 01/30/25 11:05 01/30/25 11:01/30/25 10:32 01/30/25 11:01/30/25 07:48 Narrative: Patient alert and oriented by 3 Neck supple Affect appropriate Cranial nerves II through XII intact and symmetrical Deltoid bicep tricep and bath design sales consultant 5/5 bilateral Upper extremity sensory normal to [...] diabetes mellitus with hyperglycemia: Qualifiers: Diabetes mellitus alf insulin use: without 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 oil terminal use Qualified Code(s): E11.65 - Type [...] stable for discharge which would be the [place]. All questions were answered to the satisfaction of the patient sheis in agreement the above plan. Documented By: Donell Rosenbaum DO 01/30/251414 Signed By: <Electronically signed by Donell Rosenbaum DO> 01/30/25 1418 [facility] Work Phone: 1(745) 662-294503-11-2025 [place] [address] Neurosurgery Progress Note Signed Patient: Fatuma Fair MR#: [id number] : 1945 Acct:[id number] Age/Sex: 80 / F Adm Date: 5 Loc: 4N Room: 7B6602-7 Type: ADM IN Attending Dr: Alec Alvarez [...] intact and symmetrical Deltoid bicep tricep and bath design sales consultant 5/5 bilateral Upper extremity sensory normal to [...] diabetes mellitus with hyperglycemia: Qualifiers: 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: without 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 oil terminal use Qualified Code(s): E11.65 - Type [...] is stable for discharge which wouldbe the [place]. All questions were answered to the satisfaction of the patient sheis in agreement the above plan. Documented By: Donell Rosenbaum, 01/30/251414 Signed By: 01/30/25 1418 [facility]03-10-2025 Progress note Author Alexandra Cheney [facility] Note Date/Time January 29, 2025 4:5 7pm [facility] [address] [place] [address] Hospitalist Progress Note Signed Patient: Fatuma Fair MR#: [id number] : 1945 Acct:[id number] Age/Sex: 80 / F Adm Date: 5 Loc: Room: [address] [place] [address] Type: ADM IN Attending Dr: Alec Alvarez [...] <Electronically signed by Alec Alvarez MD> 01/29/[address] [facility] Work Phone: 1(268) 896-308503-10-2025 [place] [address] Hospitalist Progress Note Signed Patient: Fatuma Fair MR#: [id number] : 1945 Acct:[id number] Age/Sex: 80 / F Adm Date: 5 Loc: Room: [address] [place] [address] Type: ADM IN Attending Dr: Alec Alvarez [...] Alexandra Cheney APRN 01/20 1255 Signed By: 01/29/25 1605 01/29/25 1657 [facility]03-10-2025 Consult note Author Donell Rosenbaum [facility] Note Date/Time January 29, 2025 7:5 3am [facility] [address] [place] [address] Neurosurgery Consult Note Signed Patient: Fatuma Fair MR#: [id number] : 1945 Acct:[id number] Age/Sex: 80 / F Adm Date: 5 Loc: Room: [address] [place] [address] Type: ADM IN Attending Dr: Sandy Salcido MD Copies to: DO Donell Montague, DO Sandy Salcido MD~ HPI History of Present Illness Consult Date: 01/29/2025 Requesting Provider: CC: Sandy Salcido MD Reason for Consult: Reported T12 burst fracture History of Present Illness: This patient is a 80-year-old left-handed female that lives at home with her who presented to [facility] from [facility] with reports of having a [...] burst fracture and was subsequently transferred from [facility] to [facility] for further evaluation. [facility] Medical History GERD (gastroesophageal reflux disease) COVID [...] 07/18/24 [Rx Confirmed 01/29/25] flash glucose sensor ([employer] Chelsea 2 Sensor kit) #2 ea 10/02/24 [Rx Confirmed 01/03/25] dulaglutide 1.5 mg/0.5 mL subcutaneous pen injector (Ticies) 1.5 mg (0.5 mL) subcut QWEEK 28 [...] intact and symmetrical Deltoid bicep tricep and bath design sales consultant 5/5 bilateral Upper extremity sensory normal to [...] % (Auto) 85.9, Lymph % (Auto) 6.5, Sebastian % (Auto) 7.1, Eos % (Auto) 0.3, Baso % (Auto) 0.2, Nucleat RBC Rel Count 0.0, Neut # (Auto) 9.5 H, Lymph # (Auto) 0.7 L, Sebastian # (Auto) 0.8, Eos # (Auto) 0.0, [...] a 80-year-old left-handed female who presents to [facility] from [facility] with reported T12 burst fracture. At this time the patient did have a CT that was done at [facility] which per the ER report [...] plan. Documented By: Donell Rosenbaum DO 01/29/25 0750 Signed By: <Electronically signed by Donell Rosenbaum DO> 01/29/25 6223 [facility] Work Phone: 1(445) 242-297703-10-2025 History and physical note Author Sandy Salcido [facility] Note Date/Time January 29, 2025 7:4 4am [facility] [address] [place] [address] Hospitalist H&P Signed Patient: Fatuma Fair MR#: [id number] : 1945 Acct:[id number] Age/Sex: 80 / F Adm Date: 5 Loc: Room: [address] [place] [address] Type: ADM IN Attending Dr: Sandy Salcido [...] Denies loss of vision and Reports vertigo [facility] Medical History GERD (gastroesophageal reflux disease) COVID Hypothyroid Type 2 diabetes mellitus with diabetic polyneuropathy Uterine prolapse Urge incontinence Type 2 diabetes mellitus with hyperglycemia Stage 3b chronic kidney disease Right femoral shaft fracture Primary osteoarthritis of right knee Primary osteoarthritis of right hip Primary osteoarthritis of left knee Post-menopausal Paroxysmal atrial fibrillation - s/p DCC 09/2023 w/ Amiodarone therapy Osteitis pubis Obstructive [...] dulaglutide 1.5 mg/0.5 mL subcutaneous pen injector ([facility]) 1.5 mg (0.5 mL) subcut QWEEK 28 [...] <Electronically signed by Tiffany Guy> 01/29/25 0558 [facility] Work Phone: 1(957) 808-274203-10-2025 [place] [address] Neurosurgery Consult Note Signed Patient: Fatuma Fair MR#: [id number] : 1945 Acct:[id number] Age/Sex: 80 / F Adm Date: 5 Loc: Room: [id number] Type: ADM IN Attending Dr: Sandy Salcido MD Copies to: DO Donell Montague DO Ruta Semaskiene, MD~ HPI History of Present Illness Consult Date: 01/29/2025 Requesting Provider: CC: Sandy Salcido MD Reason for Consult: Reported T12 burst fracture History of Present Illness: This patient is a 80-year-old left-handed female that lives at home with her who presented to [facility] from [facility] with reports of having a [...] burst fracture and was subsequently transferred from [facility] to [facility] for further evaluation. [facility] Medical History GERD (gastroesophageal reflux disease) COVID [...] intact and symmetrical Deltoid bicep tricep and bath design sales consultant 5/5 bilateral Upper extremity sensory normal to [...] % (Auto) 85.9, Lymph % (Auto) 6.5, Sebastian % (Auto) 7.1, Eos % (Auto) 0.3, Baso % (Auto) 0.2, Nucleat RBC Rel Count 0.0, Neut # (Auto) 9.5 H, Lymph # (Auto) 0.7 L, Sebastian # (Auto) 0.8, Eos # (Auto) 0.0, [...] a 80-year-old left-handed female who presents to [facility] from [facility] with reported T12 burst fracture. At this time the patient did have a CT that was done at [facility] which per the ER report [...] By: Donell Rosenbaum DO 01/29/25749 Signed By: 01/29/25 0753 [facility]03-10-2025 [place] [address] Hospitalist H&P Signed Patient: Fatuma Fair MR#: [id number] : 1945 Acct:[id number] Age/Sex: 80 / F Adm Date: 5 Loc: Room: [address] [place] [address] Type: ADM IN Attending Dr: Sandy Salcido [...] Denies loss of vision and Reports vertigo [facility] Medical History GERD (gastroesophageal reflux disease) COVID [...] Allergy (Unknown, Verified 01/03/25 14:) Unknown Reaction Home Medications hydrochlorothiazide 25 mg [...] 0236 Signed By: 01/29/25 0744 01/29/25 0558 [facility]02-12-2025 Evaluation note* Diagnosis Onset Date Resolution Status Admit Date Essential hypertension acute [facility] 2024 1:54pm GERD (gastroesophageal reflu x disease) [...] 29, 2025 12:42am Chronic anticoagulation acute [facility] 2024 12:42am Essential hypertension acute [facility] 2024 12:42am Fall acute January 29 12:42am Paroxysmal atrial fibrillation acute January 29, 2025 12:42am Type 2 diabetes mellitus wit h hyperglycemia acute January 29, 2025 12:42am UTI (urinary tract infection) acute January 29, 2025 12:42am [facility] Work Phone: 1(175) 838-238102-12-2025 Evaluation note* Diagnosis Onset Date Resolution Status [...] January 29, 2025 12:42am Chronic anticoagulation acute [facility] 2024 12:42am Essential hypertension acute [facility] 2024 12:42am Paroxysmal atrial fibrillation acute January 29, 2025 12:42am Type 2 diabetes mellitus wit h hyperglycemia acute January 29, 2025 12:42am Fall resolved January 29 12:42am UTI (urinary tract infection) delete d January 29, 2025 12:42am [facility] Work Phone: 1(851) 687-796802-12-2025 Evaluation note* Diagnosis Onset Date Resolution Status [...] January 29, 2025 12:42am Chronic anticoagulation acute [facility] 2024 12:42am Essential hypertension acute [facility] 2024 12:42am Paroxysmal atrial fibrillation acute January 29, 2025 12:42am Type 2 diabetes mellitus wit h hyperglycemia acute January 29, 2025 12:42am Fall resolved January 29 12:42am UTI (urinary tract infection) delete d January 29, 2025 12:42am Burst fracture of T12 vertebra acute February 19, 2025 1:38pm [facility] Work Phone: 1(640) 359-516011-25-2024 Evaluation note* Diagnosis Onset Date Resolution Status [...] (gastroesophageal reflu x disease) acute January 03, 2 025 1:54pm Hypothyroid acute December 1:54pm Paroxysmal atrial fibrillation acute January 03, 2025 1:54pm Stage 3b chronic kidney disease acut e January 03, 2025 1:54pm Type 2 diabetes mellitus wit h diabetic polyneuropathy acute January 03, 2025 1:54pm Type 2 diabetes mellitus wit h hyperglycemia acute January 03, 2 025 1:54pm [facility] Work Phone: 1(204) 582-355009-20-2024 [id number] age, female, CHF, CAD/vascular disease, diabetes Currently on EKG patient is in sinus rhythm Continue amiodarone 200 mg a day and Cardizem 240 daily she remains on Eliquis anticoagulation without any bleeding tendenciesSelect Medical [facility]09-20-2024 NoteAmiodarone Monitoring: CBC annually-stable ALT, AST annually-stable TSH annually-stable Cxray annually-ordered Dilated eye exam Annually- recently completed per pt PFT Annually- ordered CT chest Consideration EKG Annually and PRNUnZanesville City Hospital09-20-2024 Note Hypertension is unchanged. Currently blood pressure is well-controlled 130/68 continue Cardizem, hydrochlorothiazide and lisinopril Continue current treatment regimen. Continue current medications. Blood pressure will be reassessed at the next regular appointment. Renal function stableUnZanesville City Hospital09-20-2024 NoteCoronary artery disease is unchanged. No concerning symptoms at this time Remains on goal-directed medical therapy of Lipitor no aspirin in light of Eliquis, lisinopril. Continue current treatment regimen. Continue current medications. Cardiac status will be reassessed in 6 months.[facility]09-20-2024 NoteNYHC II currently euvolemic without exacerbation No concerning symptoms today Continue GDMT-currently on lisinopril and hydrochlorothiazide no Diuretic therapy currently required Monitor daily weights, I&O, fluid restriction 1.5-2L/day, renal function and electrolytes-[facility]09-20-2024 NoteNo concerning symptoms Will monitor with routine echocardiogram Discussed with patient to call office for any chest pain, shortness of breath, palpitations, syncope and she voiced understanding.[facility]09-20-2024 NotePt here for a six month follow up. Pt denies sob, chest pain, palpatations Review of Systems Cardiovascular: Positive for leg swelling. Hematologic/Lymphatic: Bruises/bleeds easily. Musculoskeletal: Positive for arthritis and joint pain. Neurological: Positive for loss of balance and weakness. All other systems reviewed and are negative.[facility] 08-11-2024 NoteUTP CARDIOLOGY PROGRESS NOTE HPI: Fatuma [...] reviewed and are negative Previous HPI 11/23/23 Papa Pearson NP Reason for visit: Afib s/p DCCV 10/21/23 on amiodarone 11/23/22: She is here s/p DCCV on amiodarone She hasnt noticed a difference being in SR ECG 11/23/22 SR 70bpm 09/14/23 dr. moran HPI: Fatuma Fair is a 78 y.o. year old with past medical history of Type 2 diabetes mellitus, hypertension, left breast cancer, hyperlipidemia, SHIRA, CKD stage III who was previously seen by Papa CASTILLO for A-fib and also for cardiac [...] changed to Cardizem 240 once daily by Papa CASTILLO but she continues to have high [...] sounds. Abdominal: General: Pj (more content not included)...[facility] 05-16-2024 History of Present illness Narrative* Tutu [...] will have to referher out to local teaching music lessons/ building coordinator. Patient was advised due to multiple comorbidities [...] signs of skin breakdown. documented in this encounterUniversity Health Lakewood Medical CenterHmhqwgerou52-03-0420 Evaluation note* Encounter Date Diagnosis Assessment Notes Treatment Notes Treatment Clinical Notes Nov, Type 2 diabetes mellitus with diabetic polyneuropathy, without long-term current use of insulin (ICD-10 - E11.42) [facility] Other 01-04-2024 Evaluation note* Encounter Date Diagnosis [...] are maintaining regular scheduled appts with their core dipper. Cardioverted late September at [facility]. Continue Amiodarone and Eliquis Nov, Acute [...] use, the patient reduces the risk for [place], CVA, HTN, cardiac dysrhythmias and sudden cardiac [...] and structure, left thigh (ICD-10 - M85.852) [facility] Other 12-21-2023 Evaluation note* Encounter Date Diagnosis Assessment Notes [...] are maintaining regular scheduled appts with their core dipper. Oct, Other postprocedural complications and disorders of genitourinary system (ICD-10 - N99.89) Oct, Other retention of urine (ICD-10 - R33.8) PVR > 1000 after which baldwin was placed. She was treated for UTI and baldwin removed d/c antispasmotic due to anticholinergic side effects May require referral to [facility] Other 12-07-2023 Evaluation note* Encounter Date Diagnosis [...] are maintaining regular scheduled appts with their core dipper. Today was in NSR Oct, Acute cystitis without hematuria (ICD-10 - N30.00) Empirically treating w/ Urine C/S pending PVR 60ml [facility] due to increased risk of infected prosthesis [facility] Other 11-24-2023 Evaluation note* Encounter Date Diagnosis Assessment Notes [...] are maintaining regular scheduled appts with their core dipper. No acute bleeding at this time Sep, [...] urine and if clear will remove baldwin [facility] Other 11-16-2023 Evaluation note* Encounter Date Diagnosis [...] are maintaining regular scheduled appts with their core dipper. No ongoing bleeding complications Sep, Type 2 [...] use, the patient reduces the risk for [place], CVA, HTN, cardiac dysrhythmias and sudden cardiac deaths.The patient is also aware of the association between SHIRA and morning headaches, daytime somnolence, fatigue and obesity, which also has been improved with continued use.The patient is compliant with treatment, wearing the equipment every night for greater than 4 hours.The patient is instructed to continue use of the CPAP for SHIRA treatment. [facility] Other 11-09-2023 Evaluation note* Encounter Date Diagnosis Assessment Notes Treatment Notes Treatment Clinical Notes Sep, Acute blood loss anemia (ICD-10 - D62) [facility] Other 11-09-2023 Evaluation note* Encounter Date Diagnosis Assessment Notes Treatment Notes Treatment Clinical Notes Sep, MALIKA (generalized anxiety disorder) (ICD-10 - F41.1) [facility] Other 11-08-2023 NotePROCEDURE: XR ABDOMEN (KUB) (SINGLE [...] by: Rinku Jarvis MD 09/29/23 Final resultSaint [facility]osh[facility]11-04-2023 NotePROCEDURE: XR FEMUR RIGHT (MIN 2 VIEWS) [...] Signed by: Shereen Cunha MD 09/25/23 Final resultSBaptist Hospitals of [facility]11-01-2023 Evaluation note* Encounter Date Diagnosis Assessment Notes Treatment Notes Treatment Clinical Notes Sep, COVID (ICD-10 - U07.1) [facility] Other 10-09-2023 Evaluation note* Encounter Date Diagnosis Assessment Notes [...] test for COVID and call w/ results [facility] Other 09-20-2023 Evaluation note* Encounter Date Diagnosis Assessment Notes Treatment Notes Treatment Clinical Notes Jul, Type 2 diabetes mellitus with hyperglycemia, without long-term current use of insulin (ICD-10 - E11.65) [facility] Other 08-28-2023 Evaluation note* Encounter Date Diagnosis [...] Continue GERD precautions Continue PPI w/o interruption [facility] Other 08-25-2023 Evaluation note* Encounter Date Diagnosis Assessment Notes Treatment Notes Treatment Clinical Notes Jun, Persistent atrial fibrillation (ICD-10 - I48.19) [facility] Other 08-04-2023 Evaluation note* Encounter Date Diagnosis Assessment Notes Treatment Notes Treatment Clinical Notes Jun, Dysuria (ICD-10 - R30.0) [facility] Other 07-31-2023 Evaluation note* Encounter Date Diagnosis Assessment Notes Treatment Notes Treatment Clinical Notes May, Dysuria (ICD-10 - R30.0) [facility] Other 06-20-2023 Evaluation note* Encounter Date Diagnosis [...] use, the patient reduces the risk for [place], CVA, HTN, cardiac dysrhythmias and sudden cardiac [...] E05.90) Recheck TSH, FT4, TT3 and TSI [facility] Other 05-30-2023 Evaluation note* Encounter Date Diagnosis [...] current use of insulin (ICD-10 - E11.65) [facility] Other 05-15-2023 Evaluation note* Encounter Date Diagnosis Assessment Notes Treatment Notes Treatment Clinical Notes March, MALIKA (generalized anxiety disorder) (ICD-10 - F41.1) [facility] Other 03-22-2023 Evaluation note* Encounter Date Diagnosis Assessment Notes Treatment Notes Treatment Clinical Notes Jan, Dysuria (ICD-10 - R30.0) [facility] Other 03-20-2023 Evaluation note* Encounter Date Diagnosis Assessment Notes Treatment Notes Treatment Clinical Notes Jan, Abnormal TSH (ICD-10 - R79.89) Jan, Thyrotoxicosis without thyroid storm, unspecified thyrotoxicosis type (ICD-10 - E05.90) [facility] Other 03-20-2023 Evaluation note* Encounter Date Diagnosis [...] are maintaining regular scheduled appts with their core dipper. No bleeding complications Refer to Cardiology for [...] High risk medication use (ICD-10 - Z79.899) [facility] Other 03-13-2023 Evaluation note* Encounter Date Diagnosis Assessment Notes Treatment Notes Treatment Clinical Notes Jan, Persistent atrial fibrillation (ICD-10 - I48.19) [facility] Other 03-07-2023 Evaluation note* Encounter Date Diagnosis [...] M25.551) Ice, heat and Voltaren Gel. 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 Claude [employer] Other [id number] NotePROCEDURE: XR KNEE RT 3V HISTORY: Idiopathic osteoarthritis ; chronic right knee pain COMPARISON: None. FINDINGS: BONES:Complete loss of the medial joint space with [id number] articulation prominent periarticular degenerative osteophytes. Moderate narrowing of the anterior compartment. No appreciable narrowing of the lateral joint space. SOFT TISSUES:Calcium deposition within the lateral meniscus. EFFUSION:None visible. OTHER: Negative. IMPRESSION: 1. Marked degenerative joint disease predominantly involving the medial compartment. 2. No acute bone abnormality. Electronically authenticated by: CHING MAHMOOD Date: 2022-10-01 08:09[facility] HospitalEvaluation noteNo InformationNortEncompass Health Rehabilitation Hospital of [facility] [employer] Other Evaluation note* Diagnosis Onset Date Resolution [...] noneactive Screening mammogram for breast cancer noneactive [facility] Work Phone: Evaluation note* Diagnosis Onset [...] acute Screening mammogram for breast cancer noneactive [facility] Work Phone: Evaluation note* Diagnosis Onset Date Resolution Status Essential hypertension acute Hyperlipidemia, mixed acute Paroxysmal atrial fibrillation acute Stage 3b chronic kidney disease acute Subclinical hyperthyroidism acute Type 2 diabetes mellitus with diabetic polyneuropathy acute Type 2 diabetes mellitus with hyperglycemia acute [facility] Work Phone: evaluation note* Diagnosis Onset Date Resolution Status COVID acute Essential hypertension acute GERD (gastroesophageal reflux disease) acute Hyperlipidemia, mixed acute Hypothyroid acute Paroxysmal atrial fibrillation acute Stage 3b chronic kidney disease acute Type 2 diabetes mellitus with diabetic polyneuropathy acute Type 2 diabetes mellitus with hyperglycemia acute [facility] Work Phone: evaluation note* Diagnosis Onset Date Resolution Status COVID acute Essential hypertension acute GERD (gastroesophageal reflux disease) acute Hypothyroid acute Paroxysmal atrial fibrillation acute Stage 3b chronic kidney disease acute Type 2 diabetes mellitus with diabetic polyneuropathy acute Type 2 diabetes mellitus with hyperglycemia acute [facility] Work Phone: evaluation note* Diagnosis Pain of left foot- Primary [...] length (acquired) documented in this encounter Alexx Cifuentes [facility] general Narrative - Reported* Type [...] 2012 Surgical History CATARACTS Surgical History HYSTERECTOMY [facility] Other History general Narrative - Reported* Type [...] History HYSTERECTOMY Hospitalization History see surgical history [facility] Other [employer] general Narrative - Reported* Type Description Date [...] shaft 09/2023 Hospitalization History see surgical history [facility] [employer] Other Hospital Discharge instructionsAmbulatory Orders* Referral to Rheumatology Location: None Selected [facility] Work Phone: Reason for referral (narrative)No reason for referral information availableOhio Valley Hospital Work Phone: Summary Purpose Family History [...] Documents on File Type Date Recorded 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 [employer] Directive 10/07/2023 3:40 AM Date Activated Date Inactivated Comments 09/25/2023 2:16 AM 09/30/2023 2:39 PM Date Activated Date Inactivated Comments 01/20/2013 3:36 PM 01/20/2013 6:36 PM Reason for Referral Reason New onset atrial fib rillation Diagnosis 1 Persistent atrial fi brillation (I48.19) Referral Organization formerly [facility] geovanni Referring Provider First Name Harsha Referring Provider Last Name Kamran Referring Provider Specialty Internal Me dicine Referred Organization [facility] Referred Provider Mirian Beyer Referred Address [address] [place], [place],[address] Referred Provider Specialty Cardiology Referral Priority Routine [...] Complaint and Reason for Visit Chief Complaint Mcc D/C Fol low Up Amb Documentation Medicare [...] 03 1:54pm GERD (gastroesophageal reflux disease) F 2024 1:54pm Hypothyroid January 03, 2025 1:54pm [...] 03 1:54pm GERD (gastroesophageal reflux disease) F 2024 1:54pm Hypothyroid January 03, 2025 1:54pm [...] 12:42am Type 2 diabetes mellitus with hyperglyce [facility] January 29, 2025 12:42am UTI (urinary tract [...] 03 1:54pm GERD (gastroesophageal reflux disease) F [facility]2024 1:54pm Hypothyroid January 03, 2025 1:54pm Paroxysmal [...] Burst Fracture January 29, 2025 7:5 0am [facility] Visit February 08, 2025 11: 59pm 2 [...] po kypho March 21, 2025 12: 53pm [facility] Visit March 22, 2025 11:59p m [facility] Visit April 12, 2025 11:59 pm [facility] Visit April 26, 2025 11:59 pm D/C [place] May 04, 2025 11:3 4am UA, burning, itching, frequency May 1:45pm Reason for Visit Admit Date Burst fracture of T12 vertebra February 12:53pm Burst fracture of T12 vertebra April 11:34am Essential hypertension May 04, 2025 1 1:34am GERD (gastroesophageal reflux disease) J [facility] 2024 11:34am Hypothyroid May 04, 2025 11:3 4am Paroxysmal atrial fibrillation April 11:34am Stage 3b chronic kidney disease April 11:34am Type 2 diabetes mellitus with diabetic p olyneuropathy May 04, 2025 11:34am Type 2 diabetes mellitus with hyperglyce [facility] May 04, 2025 11:34am Chief Complaint Admit Date [facility] Visit April 12, 2025 11:59 pm [facility] Visit April 26, 2025 11:59 pm D/C [place] May 04, 2025 11:3 4am UA, burning, itching, frequency May 1:45pm Wellness July 06, 2025 2: 13pm Reason for Visit Admit Date Burst fracture of T12 vertebra April 11:34am Essential hypertension May 04, 2025 1 1:34am GERD (gastroesophageal reflux disease) J [facility] 2024 11:34am Hypothyroid May 04, 2025 11:3 [...] 2025 2:13pm Screening mammogram for breast cancer [facility] 2024 2:13pm Chief Complaint Admit Date D/C [place] May 04, 2025 11:3 4am UA, burning, itching, frequency May 1:45pm Wellness July 06, 2025 2: 13pm xray results August 01, 2025 10:31am Reason for Visit Admit Date Burst fracture of T12 vertebra April 11:34am Essential hypertension May 04, 2025 1 1:34am GERD (gastroesophageal reflux disease) J 2024 11:34am Hypothyroid May 04, 2025 11:3 [...] 2025 2:13pm Screening mammogram for breast cancer [facility] 2024 2:13pm Closed compression fracture of L1 verteb ra August 01, 2025 10:31am Essential hypertension August 01 10:31am MALIKA (generalized anxiety disorder) Septe mber 2024 10:31am GERD (gastroesophageal reflux disease) S eptember 2024 10:31am Hypothyroid August 01, 2025 10:31am Osteoporosis August 01, 2025 10:31am Paroxysmal atrial fibrillation August 01, 2025 10:31am Stage 3b chronic kidney disease Sept[facility] r 2024 10:31am Type 2 diabetes mellitus with diabetic p olyneuropathy August 01, 2025 10:31am Type 2 diabetes mellitus with hyperglyce jose August 01, 2025 10:31am Reason for Visit Admit Date Burst fracture of T12 vertebra April 11:34am Essential hypertension May 04, 2025 1 1:34am GERD (gastroesophageal reflux disease) J une 2024 11:34am Hypothyroid May 04, 2025 11:3 [...] 13pm Obstructive sleep apnea July 06 2:13pm Paroxysmal atrial fibrillation July 062024 2:13pm Stage 3b chronic kidney disease June 222024 2:13pm Type 2 diabetes mellitus with diabetic p olyneuropathy July 06, 2025 2:13pm Type 2 diabetes mellitus with hyperglyce jose July 06, 2025 2:13pm Osteopenia July 06, 2025 2: 13pm Medicare annual wellness visit, subseque nt July 06, 2025 2:13pm Screening mammogram for breast cancer [facility] 2024 2:13pm Closed compression fracture of L1 verteb ra August 01, 2025 10:31am Essential hypertension August 01, 2 025 10:31am MALIKA (generalized anxiety disorder) Septe mber 2024 10:31am GERD (gastroesophageal reflux disease) S eptember 2024 10:31am Hypothyroid August 01, 2025 10:31am Osteoporosis August 01, 2025 10:31am Paroxysmal atrial fibrillation August 01, 2025 10:31am Stage 3b chronic kidney disease [facility] r 2024 10:31am Type 2 diabetes mellitus with diabetic p olyneuropathy August 01, 2025 10:31am Type 2 diabetes mellitus with hyperglyce jose August 01, 2025 10:31am Additional Source Comments REASON FOR VISIT (unrecogniz ed section and content) 3 MONTH FOLLOW UP MBmedicati onHolter Monitorcortisone shot right kneeNo InformationNo InformationNo InformationNo InformationWELLNESSconcernU/Arefillknee issues, possible injection3 month Follow upLabs done?3 month Follow upUA- Burning, UrgencyUANo InformationPre-Op ClearanceNo Informationcough, horsness, no enegry, started InformationTCM possiblyNo InformationNo InformationConcernsNo InformationWILLOWSERRORNo InformationWillowsNew ordersrefillWillowsWeekend Call -- WillowsNew OrdersTCCLEVELAND [facility] HHWillowsnursing home d/c follow upHH nurseMedication Clarification INFORMATION SOURCE (unrecogn ized section and content) DATE CREATED AUTHOR 02/14/2023 [facility] DATE CREATED AUTHOR AUTHOR'S ORGANIZ ATION 07/13/2023 [facility] DATE CREATED AUTHOR AUTHOR'S ORGANIZ ATION 10/04/2023 [facility] DATE CREATED AUTHOR AUTHOR'S ORGANIZ ATION 05/17/2024 [facility] DATE CREATED AUTHOR AUTHOR'S ORGANIZ ATION 01/25/2025 [facility] DATE CREATED AUTHOR AUTHOR'S ORGANIZ ATION 05/11/2025 [facility] DATE CREATED AUTHOR AUTHOR'S ORGANIZ ATION 07/27/2025 [facility] Care Teams (unrecognized sec tion and content) Team Status: Active Member Role Status Dates Harsha Andrew DO Primary Care Provider Active Team Status: Inactive Member Role Status Dates Harsha Andrew DO Primary Care Provider Active Start: May 04, 2025 End: May 04, 2025 Harsha Andrew , DO Attending Provider Active Sta rt: May 04, 2025 End: May 04, 2025 Team Status: Active Member Role Status Dates Harsha Andrew DO Primary Care Provider Active Start: May 07, 2025 Harsha Andrew , DO Attending Provider Active Sta rt: May 07, 2025 Team Status: Inactive Member Role Status Dates Harsha Andrew DO Primary Care Provider Active Start: June 15, 2025 End: June 15, 2025 Harsha Andrew , DO Attending Provider Active Sta rt: June 15, 2025 End: June 15, 2025 Team Status: Inactive Member Role Status Dates Harsha Andrew DO Primary Care Provider Active Start: July 06, 2025 End: July 06, 2025 Harsha Andrew , DO Attending Provider Active Sta rt: July 06, 2025 End: July 06, 2025 Team Status: Inactive Member Role Status Dates Harsha Andrew DO Primary Care Provider Active Start: August 01, 2025 End: August 01, 2025 Harsha Andrew , DO Attending Provider Active Sta rt: August 01, 2025 End: August 01, 2025 Team Status: Active Member Role Status Dates Harsha Andrew DO Primary Care Provider Active Start: April 12, 2025 Harsha Andrew , DO Attending Provider Active Sta rt: April 12, 2025 Team Status: Active Member Role Status Dates Harsha Andrew DO Primary Care Provider Active Start: April 26, 2025 Harsha Andrew , DO Attending Provider Active Sta rt: April 26, 2025 Team Status: Inactive Member Role Status Dates Harsha Andrew DO Primary Care Provide r, Attending Provider Active Start: January 03, 2025 End: January 03, 2025 Team Status: Active Member Role Status Dates Harsha Andrew DO Primary Care Provider Active Start: January 28, 2025 Garrett Suresh , DO Attending Provider Active S tart: January 28, 2025 Team Status: Inactive Member Role Status Dates Garrett Forbes DO Attending Provider Active Start : January 28, 2025 End: January 28, 2025 Team Status: Active Member Role Status Dates Harsha Andrew DO Primary Care Provider Active Start: January 29, 2025 Sandy Salcido MD Admit Provider Active Start : January 29, 2025 Jignesh Recinos [facility] Other Provider Active Sta rt: January 29, 2025 Everardo Perez MD Other Provider Active Start: 2024 [place] , [place] Other Provider Active St art: January 29, [...] Start: January 29, 2025 Donell Rosenbaum , Attending Provider Active S tart: January 29, [...] September 06, 2024 End: September 06, 2024 [employer] Relationship Specialty Start Date End Date Harsha Andrew MD [address] [place] [facility] [place] [id number] PCP - General Internal Medicine 05/16/24 [employer] Relationship Specialty Start Date End Date Harsha Andrew DO [address] [place] [facility] [place] [id number] PCP - General 10/06/12 [employer] Relationship Specialty Start Date End Date Harsha Andrew DO [address] [place] [facility] [place] [id number] PCP - General 10/06/12 Team Status: Inactive [...] Andrew DO Primary Care Provider Active Start: March 21, 2025 End: March 21, 2025 Donell Rosenbaum , DO Attending Provider Active S tart: March 21, 2025 End: March 21, 2025 Team Status: Active Member Role Status Dates Harsha Andrew DO Primary Care Provider Active Start: March 22, 2025 Harsha Andrew DO Attending Provider Active Sta rt: March 22, 2025 Goals (unrecognized section and content) Goals [...] BE BASED ON THE PRIMARY CLINICAL RECORDS. [facility] [employer] provides no warranty or guarantee of the accuracy or completeness of information in this document.
== END 2025-08-07 10:38 | disposition home or self-care (01) ==
LOC: RAD 10:37
PROVIDERS: PCP Internal Medicine; Visit Provider Internal Medicine
DX: M85.80 Other specified disorders of bone density and structure, unspecified site (principal); M81.0 Age-related osteoporosis without current pathological fracture; Z51.81 Encounter for therapeutic drug level monitoring; Z79.01 Long term (current) use of anticoagulants; I48.0 Paroxysmal atrial fibrillation
CPT/HCPCS: 77080; 85610; G0463

== ENCOUNTER 2025-08-22 05:19 | Outpatient (RCR) | payer MEDICARE, SELFPAY | END 2025-09-21 23:59 | disposition home or self-care (01) | LOC: MM 05:19 | PROVIDERS: PCP Internal Medicine; Visit Provider Internal Medicine | DX: Z51.81 Encounter for therapeutic drug level monitoring (principal); Z79.01 Long term (current) use of anticoagulants; I48.0 Paroxysmal atrial fibrillation | CPT/HCPCS: 85610; G0463 ==

== ENCOUNTER 2025-09-03 13:48 | Outpatient (RCR) | payer MEDICARE, SELFPAY ==
[2025-09-03 13:45] VITALS: BP 163/75; PULSE 73; TEMP 35.9; O2SAT 96
[2025-09-03 13:57] LABS: Calcium 8.9 mg/dL (8.5-10.1); Estimated GFR (African America >60 (>=60 mL/min/1.73m^2); Estimated GFR (Non-African Ame 50 (>=60 mL/min/1.73m^2)
[2025-09-03] MEDS: ROMOSOZUMAB-AQQG 210 MG/2.34 ML SYRINGE SQ (13:59)
== END 2025-09-24 12:03 | disposition home or self-care (01) ==
LOC: LAB 13:48
PROVIDERS: PCP Internal Medicine; Visit Provider Internal Medicine Rheumatology
DX: Z51.81 Encounter for therapeutic drug level monitoring (principal); M81.0 Age-related osteoporosis without current pathological fracture
CPT/HCPCS: 36415; 82310; 82565; 85610; 96372; G0463; J3111

== ENCOUNTER 2025-09-22 | Outpatient (RCR) | payer MEDICARE, SELFPAY | END 2025-10-21 23:59 | disposition home or self-care (01) | LOC: MM | PROVIDERS: PCP Internal Medicine; Visit Provider Internal Medicine | DX: Z51.81 Encounter for therapeutic drug level monitoring (principal); Z79.01 Long term (current) use of anticoagulants; I48.20 Chronic atrial fibrillation, unspecified | CPT/HCPCS: 85610; G0463 ==

== ENCOUNTER 2025-10-02 13:58 | Outpatient (RCR) | payer MEDICARE, SELFPAY ==
[2025-10-02 14:09] VITALS: BP 158/68; PULSE 75; TEMP 36.6; O2SAT 96
[2025-10-02] MEDS: ROMOSOZUMAB-AQQG 210 MG/2.34 ML SYRINGE SQ (14:16)
== END 2025-10-21 23:59 | disposition home or self-care (01) ==
LOC: INF 13:58
PROVIDERS: PCP Internal Medicine; Visit Provider Internal Medicine Rheumatology
DX: M81.0 Age-related osteoporosis without current pathological fracture (principal)
CPT/HCPCS: 96372; J3111

== ENCOUNTER 2025-10-29 14:02 | Outpatient (RCR) | payer MEDICARE, SELFPAY ==
[2025-10-29 14:14] VITALS: BP 183/80; PULSE 68; TEMP 36.2; O2SAT 94
[2025-10-29] MEDS: ROMOSOZUMAB-AQQG 210 MG/2.34 ML SYRINGE SQ (14:48)
== END 2025-11-21 23:59 | disposition home or self-care (01) ==
LOC: INF 14:02
PROVIDERS: PCP Internal Medicine
DX: M81.0 Age-related osteoporosis without current pathological fracture (principal)
CPT/HCPCS: 96372; J3111

== ENCOUNTER 2025-11-20 08:43 | Outpatient (RCR) | payer MEDICARE, SELFPAY | END 2025-11-21 12:58 | disposition home or self-care (01) | LOC: MM 08:43 | PROVIDERS: PCP Internal Medicine; Visit Provider Internal Medicine | DX: Z51.81 Encounter for therapeutic drug level monitoring (principal); Z79.01 Long term (current) use of anticoagulants; I48.20 Chronic atrial fibrillation, unspecified | CPT/HCPCS: 85610; G0463 ==